=== PATIENT | male | born 1940 | race Caucasian/White ===

== ENCOUNTER → 2019-02-11 | Outpatient (CLI) | payer MEDICARE, MEDICAID, SELFPAY | DX: R53.1 Weakness (principal) | CPT/HCPCS: 70450 ==

== ENCOUNTER 2019-02-13 16:04 | Emergency (ER) | payer MEDICARE, MEDICAID, SELFPAY ==
[2019-02-13 16:06] VITALS: BMI 26.4
--- NOTE | 2019-02-13 16:09 | W.ED.FALL ---
HPI - Fall General: Chief Complaint: Fall Stated Complaint: FALL Time Seen by Provider: 02/13/19 16:09 PFSH ED PFSH: Statuses (acute, chronic, etc) shown below reflect problem list status as previously entered and may not be historically accurate Social History Smoking and tobacco status: former smoker Discharge Plan Discharge Condition: Stable Coding Level of Care Code ED Warm In Worker for Irma Dlegado
[2019-02-13 16:10] VITALS: BP 118/62; PULSE 76; RESP 20; TEMP 36.8; O2SAT 98
--- NOTE | 2019-02-13 16:25 | ED_ITS ---
Entered by Yulia Chavis, acting as scribe for Feb 13, 2019 16:04 HPI - Fall General: Chief Complaint: Fall Stated Complaint: FALL Time Seen by Provider: 02/13/19 16:09 Source: patient Mode of arrival: EMS Limitations: no limitations History of Present Illness: HPI Narrative: 78 yo Male presents to ED with complaint of right hip pain post fall. Pt states that he fell earlier today. Pt states that he has pain in his right hip and his right forearm. Patient has no other complaints except for the fall and right sided hip pain. Patient is alert and give normal history. MD complaint: fall Onset (ago): hour(s) Fall from: standing Fall witnessed: yes, by family Place fall occurred: home Loss of consciousness: None Prolonged down time: no Symptoms prior to fall: none Context: history of frequent falls Location of injury: pelvis Location of injury - extremities: Right: thigh (hip) Severity: mild Associated symptoms-after fall: Reports no associated symptoms Review of Systems General: Reports: 10 or more systems reviewed and unremarkable except in HPI and below Musc: Reports: extremity pain (right hip pain) Neuro: Reports: frequent falls PFSH ED PFSH: Statuses (acute, chronic, etc) shown below reflect problem list status as previously entered and may not be historically accurate Social History Smoking and tobacco status: former smoker Physical Exam Const: COMMON NORMALS: no apparent distress, average body habitus, oriented x3, no limitations, healthy appearing, alert and well nourished Eye: COMMON NORMALS: conjunctivae normal CONJUNCTIVA: Yes conjunctivae normal Neck/C-Spine: COMMON NORMALS: supple and no JVD Resp: COMMON NORMALS: normal respiratory effort, no retractions, no use of accessory muscles and clear to auscultation bilaterally AUSCULTATION: clear to auscultation bilaterally Cardio: COMMON NORMALS: no JVD, regular rate, regular rhythm, S1 normal heart sound, S2 normal heart sound, no gallops, no clicks, no murmurs and no rub RATE: regular rate RHYTHM: regular rhythm HEART SOUNDS: S1 normal and S2 normal GI: COMMON NORMALS: normal to inspection, nondistended, normoactive bowel sounds, soft to palpation and non-tender PALPATION: Yes soft Extremity: COMMON NORMALS: normal to inspection, normal capillary refill, no joint enlargement, no clubbing, cyanosis or edema and no calf tenderness (Mild PTP over left greater trochanter); negative for full ROM Neuro: COMMON NORMALS: oriented x3 SENSORIUM/ORIENTATION: Yes alert Skin: COMMON NORMALS: no wounds (skin tear to right arm) Course Vital Signs: Vital signs: Vital Signs Temperature 98.2 F 02/13/19 16:10 Pulse Rate 76 02/13/19 16:10 Respiratory Rate 20 H 02/13/19 16:10 Blood Pressure 118/62 02/13/19 16:10 Pulse Oximetry 98 02/13/19 16:10 MDM - Fall MDM Narrative: Medical decision making narrative: Discussed differential diagnosis which includes contusion versus fracture. Recommend plain films of the pelvis and right hip. Patient feels much better he is resting comfortably. I reviewed carefully the films preliminarily I do not see any fracture. I did talk to him about the possibility of an occult fracture that is not seen on preliminary reading or even final reading. He is able to bear weight on this. I think fracture is unlikely. I recommended conservative care if he is not improving he should return or follow-up with his primary care physician. Discharge Plan Discharge Patient Disposition: Home, Self-Care Clinical Impression: Accidental fall, Contusion of right hip Condition: Stable Referrals: Ashley Medrano [Primary Care Provider] - [facility] [Other] Discharge Diet: Advance as tolerated Discharge Activity: Limit activity as instructed Activity Restrictions/Additional Instructions: 1. Take ibuprofen if no contra indications and Tylenol arthritis for discomfort use ice or heat. 2. Follow-up with primary care in 3 to 5 days for recheck and official x-ray r eport for further ongoing management. 3. Return for new or worsening symptoms or inability to bear weight. Coding Level of Care Code ED Medicare Compliance Auditor for Chg Fwd Exam Problem Focused The documentation recorded by the Palmira arriaza Carmen, accurately reflects the service I personally performed and the decisions made by , Damion Bailey DO Feb 13, 2019 16:04
--- NOTE | 2019-02-13 16:33 | XR_ITS ---
WS: [id number] RIGHT HIP HISTORY: fall/pain COMPARISON: 01/28/2019 Right hip: No acute fracture or dislocation. Mild narrowing of the hip joint. Enthesopathy at the gre ater trochanter. Osteopenia. XR/XR hip RT 2-3V wo/w pel* [id number] IMPRESSION: 1. No hip fracture. 2. Osteopenia.
--- NOTE | 2019-02-13 17:03 | PC.NURSE ---
portable xray at bedside.
[2019-02-13 19:36] VITALS: BP 109/60; PULSE 80; RESP 14; O2SAT 99
[2019-02-13 19:56] VITALS: BP 135/77; PULSE 66; RESP 14; TEMP 36.7; O2SAT 99
[2019-02-13 21:12] VITALS: BP 121/72; PULSE 74; RESP 14; O2SAT 97
== END 2019-02-13 22:53 | disposition home or self-care (01) ==
PROVIDERS: Emergency Provider Family Medicine; PCP Nurse Practitioner Family
DX: S70.01XA Contusion of right hip, initial encounter (principal); W19.XXXA Unspecified fall, initial encounter; Y92.009 Unspecified place in unspecified non-institutional (private) residence as the place of occurrence of the external cause; Z87.891 Personal history of nicotine dependence
CPT/HCPCS: 73502; 99281

== ENCOUNTER 2019-02-23 19:14 | Emergency (ER) | payer MEDICARE, MEDICAID, SELFPAY ==
[2019-02-23] VITALS (35 sets, daily range): BP systolic 135–138; BP diastolic 70–75; PULSE 60–89; RESP 18; TEMP 36.7–36.8; O2SAT 80–98; BMI 34.4
--- NOTE | 2019-02-23 19:25 | ED_ITS ---
Entered by Wendie Cuenca, acting as scribe for Arnoldo Espinoza DO Feb 23, 2019 19:14 HPI - General Adult General: Chief complaint: General Medical Stated complaint: WEAKNESS Time Seen by Provider: 02/23/19 19:24 Source: patient Mode of arrival: EMS Limitations: no limitations History of Present Illness: HPI narrative: 78 yo m came to the er by ems for general sickness. Onset was yesterday. Pt states that he has had a fever, productive cough and fuentes had trouble breathing. Pt states that he started to feel sick and that is why he wanted to come in. MD complaint: cough, fever Onset (ago): day(s) (yesterday) Radiation: non-radiation Severity: mild Pain Consistency: intermittent Relieving factors: none Exacerbating factors: none Associated symptoms: Reports cough (productive) and dyspnea; Deny chest pain, confusion, headache(s), nausea, rash, palpitations or vomiting Treatments prior to arrival: none Review of Systems Const: Denies: fever or chills Eyes: Denies: change in vision or blurry vision ENMT: Denies: painful swallowing, swelling of lips/tongue, bleeding gums, dental pain, Change in hearing, nose bleeds, post nasal drip or facial/sinus pain Card: Denies: chest pain or palpitations Resp: Reports: shortness of breath GI: Denies: nausea or vomiting : Denies: difficulty urinating, painful urination, urinary frequency, urinary urgency or blood in urine Musc: Denies: neck pain, back pain, redness or joint warmth Skin/Breast: Denies: rash Neuro: Denies: headache or confusion Psych: Denies: anxiety, visual hallucinations or auditory hallucinations PFSH ED PFSH: Statuses (acute, chronic, etc) shown below reflect problem list status as previously entered and may not be historically accurate Family History Father CAD (coronary artery disease) Mother CAD (coronary artery disease) Hypertension Sister CAD (coronary artery disease) Diabetes Family/Other Stroke Social History Smoking and tobacco status: former smoker Alcohol intake: former Physical Exam Const: COMMON NORMALS: alert GENERAL APPEARANCE: well developed ORIENTATION/CONSCIOUSNESS: Yes awake, Yes oriented to person and Yes oriented to place HENMT: COMMON NORMALS: normocephalic, external ears normal and external nose normal; oral mucous membranes not moist HEAD & SCALP: normocephalic; no scalp tenderness NOSE: external nose normal and no nasal discharge EXTERNAL EAR: Yes external ears normal THROAT: posterior oropharynx normal Eye: COMMON NORMALS: PERRL, EOMs intact bilaterally and conjunctivae normal EYELID: eyelids normal CONJUNCTIVA: Yes conjunctivae normal PUPIL: Yes PERRL Neck/C-Spine: COMMON NORMALS: full ROM GENERAL: No anterior neck swelling and No tracheal deviation Chest: COMMONS NORMALS: inspection of chest normal CHEST: Yes symmetrical chest wall rise and No tenderness Resp: COMMON NORMALS: clear to auscultation bilaterally EFFORT & INSPECTION: No tachypneic, No respiratory distress, No retractions, No uses accessory muscles and No tracheal deviation AUSCULTATION: clear to auscultation bilaterally, no rhonchi, no wheezes and lung sounds not diminished Cardio: COMMON NORMALS: regular rate and regular rhythm RATE: regular rate RHYTHM: regular rhythm HEART SOUNDS: no murmurs PERIPHERAL PULSES: radial pulses present GI: INSPECTION: No abdominal distension AUSCULTATION: No hyperactive bowel sounds and No hypoactive bowel sounds PALPATION: No tender, No guarding and No rigid PERCUSSION: no dullness to percussion and no tympanic to percussion : COMMON NORMALS: Yes no CVA tenderness BLADDER/KIDNEY EXAM: Yes no CVA tenderness Back/Pelvis: COMMON NORMALS: no CVA tenderness Neuro: SENSORIUM/ORIENTATION: Yes alert, Yes oriented to person and Yes oriented to place Psych: COMMON NORMALS: mental status grossly normal and speech normal SPEECH: Yes normal speech Skin: COMMON NORMALS: no rashes or lesions noted GENERAL SKIN EXAM: no rashes or lesions noted Course ED course: Chest x-ray revealed platelike atelectasis in the right lower lobe, that could be an infiltrate. He will be treated for pneumonia. He is afebrile. He is not hypoxic. He can be treated at home. He has nebulizer treatments at home as well. Vital Signs: Vital signs: Vital Signs Temperature 98.1 F 02/23/19 21:00 Pulse Rate 80 02/23/19 22:15 Respiratory Rate 18 02/23/19 22:15 Blood Pressure 135/75 02/23/19 22:15 Pulse Oximetry 98 02/23/19 22:15 Discharge Plan Discharge Patient Disposition: Home, Self-Care Condition: Stable Prescriptions: No Action esomeprazole magnesium [Nexium] 40 mg capsule,delayed release(DR/EC) 40 mg PO DAILY RF: 0 nitroglycerin [Nitrostat] 0.4 mg tablet, sublingual 0.4 mg SUBLINGUAL Q5M PRNRF: 0 furosemide 40 mg tablet 40 mg PO BID RF: 0 tamsulosin [Flomax] 0.4 mg capsule 0.4 mg PO DAILY RF: 0 albuterol sulfate 2.5 mg/0.5 mL solution for nebulization 10 mg INHALATION Q4H PRNRF: 0 risperidone 0.5 mg tablet 0.5 mg PO BID RF: 0 donepezil [Aricept] 10 mg tablet 10 mg PO .AM RF: 0 hydrocodone-acetaminophen 5-325 mg tablet 1 tab PO Q8H PRNRF: 0 potassium chloride 20 mEq tablet extended release 20 meq PO DAILY RF: 0 memantine [Namenda] 10 mg tablet 10 mg PO BID RF: 0 ondansetron HCl 4 mg tablet 4 mg PO Q6H PRNRF: 0 melatonin 5 mg capsule PO .HS RF: 0 vitamin B complex [B Complex-Vitamin B12] Tablet 1 tab PO QAM RF: 0 ascorbate calcium (vitamin C) 500 mg tablet 500 mg PO DAILY RF: 0 Discharge Orders: Discharge Order (Routine); Ordered 02/23/19 Ordered By: Arnoldo Espinoza Referrals: [facility] [Other] Fredis Elder MD [Primary Care Provider] - Discharge Diet: Advance as tolerated Discharge Activity: Resume usual activity Patient Instructions: Bacterial Pneumonia (ED) Activity Restrictions/Additional Instructions: Return for worsening chest pain or shortness of breath despite treatment, fever greater than 100 despite 2-3 doses of antibiotics, other concerning symptoms. Discharge Date/Time: 02/23/19 22:17 Coding Level of Care Code ED Customer Service Engineer for Chg Fwd The documentation recorded by the Bang arriaza Stephanie Lyn, accurately reflects the service I personally performed and the decisions made by Alexis san Jeremy John, DO Feb 23, 2019 19:14
--- NOTE | 2019-02-23 19:33 | PC.NURSE ---
Pt daughter reviewed pt's history and indicated that patient is having chills, leg pain, and lethargy which has been progressing over the past few days.
--- NOTE | 2019-02-23 19:46 | XR_ITS ---
WS: [id number] CHEST 2 VIEWS HISTORY: sob COMPARISON: 01/28/2019 Lungs: Hyperinflated lungs with changes of emphysema. No pneumonia. Small bilateral pleural effusions . Mild thickening along the fissures. Cardiac size: Normal. Mediastinum/Aorta: Mild atherosclerosis aorta. Bones: Normal. Shunt catheter projects over the LEFT thorax. XR/XR chest 2V* [id number] IMPRESSION: 1. Chronic emphysema and atherosclerosis aorta. 2. No pneumonia. 3. Small bilateral pleural effusions.
--- NOTE | 2019-02-23 20:19 | PC.NURSE ---
Pt out of room at present.
[2019-02-23] MEDS: doxycycline 100 mg Tablet PO (21:23)
[2019-02-23] MEDS: dexamethasone 4 mg Tablet 8 MG PO (21:24)
== END 2019-02-23 22:17 | disposition home or self-care (01) ==
PROVIDERS: Emergency Provider Emergency Medicine; PCP Internal Medicine Cardiovascular Disease
DX: R53.1 Weakness (principal); Z87.891 Personal history of nicotine dependence
CPT/HCPCS: 71046; 99283; J8540

== ENCOUNTER 2019-02-23 23:55 | Emergency (ER) | payer MEDICARE, MEDICAID, SELFPAY ==
[2019-02-23 23:57] VITALS: BP 147/80; PULSE 81; RESP 18; TEMP 36.4; O2SAT 97; BMI 28.7
--- NOTE | 2019-02-24 00:17 | ED_ITS ---
Entered by Wendie Cuenca, acting as scribe for Arnoldo Espinoza DO Feb 23, 2019 23:55 HPI - Fall General: Chief Complaint: Fall Stated Complaint: FALL Time Seen by Provider: 02/24/19 00:17 Source: patient Mode of arrival: EMS Limitations: no limitations History of Present Illness: HPI Narrative: 78 yo m came to the er by ems for fall. Happened today. Pt states that he fell and landed on his left hand causing an open wound on his knuckles and has a skin tear on the top of his wrist. MD complaint: fall Onset (ago): day(s) (today) Fall from: standing Fall witnessed: no Place fall occurred: home Loss of consciousness: None Prolonged down time: no Symptoms prior to fall: none Context: tripped/slipped Location of injury - extremities: Left: hand (wrist) Severity: mild Quality: other (pain) Associated symptoms-after fall: Denies abdominal pain, chest pain, confusion, headache(s), hematuria, neck pain or vertigo Review of Systems Const: Denies: fever or chills Eyes: Denies: change in vision or blurry vision ENMT: Denies: painful swallowing, swelling of lips/tongue, bleeding gums, dental pain, Change in hearing, nose bleeds, post nasal drip or facial/sinus pain Card: Denies: chest pain Resp: Denies: shortness of breath, productive cough, non-productive cough or wheezing GI: Denies: abdominal pain : Denies: blood in urine Musc: Denies: neck pain Skin/Breast: Denies: rash, itching or redness Neuro: Denies: headache, vertigo or confusion Psych: Denies: anxiety, visual hallucinations or auditory hallucinations PFSH ED PFSH: Statuses (acute, chronic, etc) shown below reflect problem list status as previously entered and may not be historically accurate Social History Smoking and tobacco status: former smoker Alcohol intake: former Physical Exam Const: COMMON NORMALS: alert GENERAL APPEARANCE: well developed ORIENTATION/CONSCIOUSNESS: Yes awake, Yes oriented to person and Yes oriented to place HENMT: COMMON NORMALS: normocephalic, external ears normal, external nose normal and moist oral mucous membranes HEAD & SCALP: normocephalic; no scalp tenderness FACE & SINUS: normal facial exam NOSE: external nose normal and no nasal discharge EXTERNAL EAR: Yes external ears normal MOUTH: tongue normal Eye: COMMON NORMALS: PERRL, EOMs intact bilaterally and conjunctivae normal EYELID: eyelids normal CONJUNCTIVA: Yes conjunctivae normal PUPIL: Yes PERRL Neck/C-Spine: COMMON NORMALS: full ROM GENERAL: No tracheal deviation CERVICAL SPINE: No cervical spine tenderness and No step off deformity Chest: COMMONS NORMALS: inspection of chest normal CHEST: Yes symmetrical chest wall rise and No tenderness Resp: COMMON NORMALS: clear to auscultation bilaterally EFFORT & INSPECTION: No tachypneic, No respiratory distress, No retractions, No uses accessory muscles and No tracheal deviation AUSCULTATION: clear to auscultation bilaterally, no rhonchi, no wheezes and lung sounds not diminished Cardio: COMMON NORMALS: regular rate and regular rhythm RATE: regular rate RHYTHM: regular rhythm HEART SOUNDS: no murmurs PERIPHERAL PULSES: radial pulses present GI: INSPECTION: No abdominal distension AUSCULTATION: No hyperactive bowel sounds and No hypoactive bowel sounds PALPATION: No tender, No guarding and No rigid PERCUSSION: no dullness to percussion and no tympanic to percussion : COMMON NORMALS: Yes no CVA tenderness BLADDER/KIDNEY EXAM: Yes no CVA tenderness Back/Pelvis: COMMON NORMALS: no CVA tenderness PELVIS: Yes no pain with anterior-posterior compression and Yes no pain with lateral compression Extremity: NARRATIVE EXTREMITY EXAM: Examination of the left hand reveals abrasions. There is a mild amount of swelling. Intact tendon function. No deformity. Neuro: SENSORIUM/ORIENTATION: Yes alert, Yes oriented to person and Yes oriented to place Psych: COMMON NORMALS: mental status grossly normal and speech normal SPEECH: Yes normal speech Skin: COMMON NORMALS: no rashes or lesions noted GENERAL SKIN EXAM: no rashes or lesions noted Course ED course: This patient had been seen earlier, and discharged. He had ambulated to the waiting room. When he found out it would be morning before transport would become available back to his home, he requested an alternate method home. A cab was called. He exited the cab at his home, tripped, and fell requiring repeat matriculation to the emergency department. There is no fracture on x-ray. He has abrasions and some mild swelling to the hand, which were cleaned and repaired. His daughter is here now. He will be discharged home. Vital Signs: Vital signs: Vital Signs Temperature 98.6 F 02/24/19 02:32 Pulse Rate 78 02/24/19 02:32 Respiratory Rate 18 02/24/19 02:32 Blood Pressure 133/79 02/24/19 02:32 Pulse Oximetry 93 02/24/19 02:32 Discharge Plan Discharge Patient Disposition: Home, Self-Care Clinical Impression: Contusion of hand, left Qualifiers: Encounter type: initial encounter Qualified Code(s): S60.222A - Contusion of left hand, initial encounter Abrasion of hand, left Qualifiers: Encounter type: initial encounter Qualified Code(s): S60.512A - Abrasion of left hand, initial encounter Condition: Stable Prescriptions: No Action esomeprazole magnesium [Nexium] 40 mg capsule,delayed release(DR/EC) 40 mg PO DAILY RF: 0 nitroglycerin [Nitrostat] 0.4 mg tablet, sublingual 0.4 mg SUBLINGUAL Q5M PRNRF: 0 furosemide 40 mg tablet 40 mg PO BID RF: 0 tamsulosin [Flomax] 0.4 mg capsule 0.4 mg PO DAILY RF: 0 albuterol sulfate 2.5 mg/0.5 mL solution for nebulization 10 mg INHALATION Q4H PRNRF: 0 risperidone 0.5 mg tablet 0.5 mg PO BID RF: 0 donepezil [Aricept] 10 mg tablet 10 mg PO .AM RF: 0 hydrocodone-acetaminophen 5-325 mg tablet 1 tab PO Q8H PRNRF: 0 potassium chloride 20 mEq tablet extended release 20 meq PO DAILY RF: 0 memantine [Namenda] 10 mg tablet 10 mg PO BID RF: 0 ondansetron HCl 4 mg tablet 4 mg PO Q6H PRNRF: 0 melatonin 5 mg capsule PO .HS RF: 0 vitamin B complex [B Complex-Vitamin B12] Tablet 1 tab PO QAM RF: 0 ascorbate calcium (vitamin C) 500 mg tablet 500 mg PO DAILY RF: 0 Discharge Orders: Discharge Order (Routine); Ordered 02/24/19 Ordered By: Arnoldo Espinoza Referrals: [facility] [Other] Fredis Elder MD [Primary Care Provider] - Discharge Diet: Usual diet Discharge Activity: Resume usual activity Patient Instructions: Contusion in Adults (ED), Abrasion (ED) Activity Restrictions/Additional Instructions: Keep clean and dry for 24 hours, then may wash with soap and water. Do not scrub. Return for worsening bleeding, swelling, pain, other concerning symptoms. Discharge Date/Time: 02/24/19 02:33 Coding Level of Care Code ED Binding Nicker for thomas Delgado The documentation recorded by the [facility] ar[facility]aza Stephanie Lyn, accurately reflects the service I personally performed and the decisions made by Alexis san Jeremy John, DO Feb 23, 2019 23:55
--- NOTE | 2019-02-24 00:23 | XR_ITS ---
WS: [id number] HAND LEFT TECHNIQUE: 3 views of the left hand CLINICAL INFORMATION: fall COMPARISON: None. FINDINGS: Osteopenia. Mild narrowing of the IP joints. Mild narrowing of the radiocarpal joint. Normal metacarp als. Distal radius is normal. Slight irregularity along the distal ulna suspicious for nondisplaced fractu re. Recommend interval follow-up. XR/XR hand LT min 3V* [id number] IMPRESSION: Slight irregularity distal ulna along the proximal ulna styloid suspicious for nondisplaced fracture recommend interval follow-up.
[2019-02-24 00:31] VITALS: BP 147/87; PULSE 79; O2SAT 95
[2019-02-24 00:36] VITALS: RESP 18
[2019-02-24] MEDS: oxyCODONE-APAP 5-325 mg Tablet 1 TAB PO (00:36)
--- NOTE | 2019-02-24 01:00 | PC.NURSE ---
3 skin tears to left hand/wrist. Pulse palpitable, pt able to move all digits. States tenderness during physical exam. Hand cleansed with warm water and betadine. Winston merrill @ bedside.
--- NOTE | 2019-02-24 01:59 | PC.NURSE ---
Left hand skin tears repaired by physician using glue x 2 tubes.
[2019-02-24 02:32] VITALS: BP 133/79; PULSE 78; RESP 18; TEMP 37; O2SAT 93
--- NOTE | 2019-02-27 17:56 | PC.NURSE ---
PT CALLED BACK DUE TO FINAL RADIOLOGY REPORT. POSTERIOR SPLINT APPLIED AND CASE MGT NOTIFIED OF THE NEED FOR A ORTHO APPT.
--- NOTE | 2019-02-28 09:34 | DCPLANNER ---
operations support manager had message to schedule a follow up appointment for patient with ortho. operations support manager called the ortho clinic, spoke with Molly, gave clinic patients information. operations support manager was told that patients information would be printed and reviewed. Clinic will call case sealer and patient with appointment information.
--- NOTE | 2019-03-04 12:14 | DCPLANNER ---
Patient has a follow up appointment scheduled for Thursday, March 07, 2019 at 12:[address] Alvarado. Clinic will contact patient with appointment information.
--- NOTE | 2019-03-12 15:42 | DCPLANNER ---
Patient did attend appointment scheduled for 03.07.19 with ortho.
== END 2019-02-24 02:33 | disposition home or self-care (01) ==
PROVIDERS: Emergency Provider Emergency Medicine; PCP Internal Medicine Cardiovascular Disease
DX: S60.222A Contusion of left hand, initial encounter (principal); W19.XXXA Unspecified fall, initial encounter; Y92.009 Unspecified place in unspecified non-institutional (private) residence as the place of occurrence of the external cause; Z87.891 Personal history of nicotine dependence
CPT/HCPCS: 73130; 99281

== ENCOUNTER 2019-03-02 12:45 | Emergency (ER) | payer MEDICARE, MEDICAID, SELFPAY ==
[2019-03-02] VITALS (11 sets, daily range): BP systolic 111–124; BP diastolic 68–77; PULSE 55–66; RESP 12–23; TEMP 36.7; O2SAT 96–100; BMI 26.4
--- NOTE | 2019-03-02 12:53 | ED_ITS ---
Entered by Robyn Nixon, acting as scribe for HPI - Chest Pain General: Chief Complaint: Chest Pain Stated Complaint: CHEST PAIN Time Seen by Provider: 03/02/19 12:50 Source: patient and EMS Mode of arrival: EMS Limitations: no limitations History of Present Illness: HPI narrative: 78 yo male presents with no complaints. pt states his spouse called EMS and they brought him here. pt denies any pain at this time. pt states he does have mild shortness of breath that is chronic. pt states he does not know why they brought him here other that spouse. pt denies any other symptoms at this time. EMS reports called for dyspnea and chest pain MD complaint: other (mild shortness of breath) Pertinent past history: prior IA Onset (ago): day(s) (today) Timing of current episode: increasing Onset: during rest Pain radiation: none Severity: mild Relieving factors: nothing Exacerbating factors: nothing Associated symptoms: Reports no associated symptoms and dyspnea; Deny abdominal pain, fever(s), nausea or vomiting Treatment prior to arrival: none Review of Systems Const: Denies: fever or chills Eyes: Denies: blurry vision or eye discharge ENMT: Denies: throat pain, nasal congestion or facial/sinus pain Card: Denies: chest pain Resp: Reports: shortness of breath; Denies: productive cough or non-productive cough GI: Denies: abdominal pain, nausea, vomiting, diarrhea or constipation : Denies: difficulty urinating or painful urination Musc: Denies: joint warmth Skin/Breast: Denies: rash, redness or sores Neuro: Reports: weakness in extremities; Denies: headache, numbness in extremities or dizziness Psych: Denies: anxiety or depression Endo: Denies: excessive urination or excessive thirst Grant/Lymph: Denies: easy bruising, petechiae or enlarged lymph nodes All/Imm: Denies: hives or acute wheezing PFSH ED PFSH: Statuses (acute, chronic, etc) shown below reflect problem list status as previously entered and may not be historically accurate Family History Father CAD (coronary artery disease) Mother CAD (coronary artery disease) Hypertension Sister CAD (coronary artery disease) Diabetes Family/Other Stroke Social History Smoking and tobacco status: never smoked Alcohol intake: former Physical Exam Const: COMMON NORMALS: no apparent distress, no limitations, healthy appearing, alert and well nourished; negative for oriented x3 GENERAL APPEARANCE: cooperative, comfortable, well kempt, well developed and frail appearing NUTRITIONAL APPEARANCE: obese ORIENTATION/CONSCIOUSNESS: Yes awake, Yes oriented to person and Yes oriented to place; not oriented to time HENMT: COMMON NORMALS: normocephalic, head/scalp atraumatic, hearing grossly normal bilaterally, external ears normal, external nose normal and moist oral mucous membranes HEAD & SCALP: normocephalic and atraumatic FACE & SINUS: normal facial exam and face symmetric NOSE: external nose normal EXTERNAL EAR: Yes external ears normal and Yes external ear abnormal Eye: COMMON NORMALS: EOMs intact bilaterally and conjunctivae normal GENERAL EYE: normal appearance of both eyes ALIGNMENT: Yes alignment normal EYELID: eyelids normal CONJUNCTIVA: Yes conjunctivae normal SCLERA: sclerae normal Neck/C-Spine: COMMON NORMALS: full ROM and no lymphadenopathy GENERAL: Yes normal visual inspection CERVICAL SPINE: Yes cervical ROM normal Lymph: LYMPHATIC: no lymphadenopathy noted Chest: COMMONS NORMALS: inspection of chest normal CHEST: Yes symmetrical chest wall rise Cardio: COMMON NORMALS: regular rate and regular rhythm RATE: regular rate RHYTHM: regular rhythm PERIPHERAL PULSES: radial pulses present GI: COMMON NORMALS: normal to inspection, nondistended, normoactive bowel sounds, soft to palpation and non-tender PALPATION: Yes soft RECTAL EXAM: Yes deferred : COMMON NORMALS: Yes no CVA tenderness BLADDER/KIDNEY EXAM: Yes no CVA tenderness Back/Pelvis: COMMON NORMALS: no CVA tenderness THORACIC SPINE/UPPER BACK: No pain with ROM LUMBAR SPINE/LOWER BACK: No pain with ROM Extremity: COMMON NORMALS: normal to inspection, full ROM, normal capillary refill and no pedal edema GENERAL: Yes normal exam except as noted and Yes edema Neuro: JONO COMA SCALE: GCS not evaluated COMMON NORMALS: moves all extremities, no focal motor deficits and no sensory deficits noted; negative for oriented x3 SENSORIUM/ORIENTATION: Yes alert, Yes oriented to person, Yes oriented to place and No oriented to time SPEECH: speech normal Psych: COMMON NORMALS: cooperative, affect normal, speech normal and activity/motor behavior normal APPEARANCE: Yes grossly normal and Yes well kempt ATTITUDE: Yes calm ACTIVITY/MOTOR BEHAVIOR: Yes appropriate eye contact SPEECH: Yes normal speech THOUGHT PROCESS: confused THOUGHT CONTENT: Yes normal thought content ATTENTION/CONCENTRATION: Yes attention grossly intact MEMORY/COGNITION: Yes memory grossly intact and Yes cognition grossly intact INSIGHT: insight good JUDGEMENT: judgment good Skin: COMMON NORMALS: no rashes or lesions noted, skin turgor normal and no petechiae GENERAL SKIN EXAM: no rashes or lesions noted and turgor normal RASHES: no rashes TRAUMA: no lacerations or abrasions HAIR: normal NAILS: normal Course ED course: Patient is in no acute distress. He really cannot tell me why he is in the emergency room. He is pleasantly confused. He denies chest pain, shortness of breath, fevers, vomiting, abdominal pain.EMS reports that the call was for chest pain. We will start our initial work-up from that perspective Patient's initial high-sensitivity troponin is elevated at 39. old records show high-sensitivity trop on 01/28/19 at 35, 2 hr at 38 and 6 hr at 52. will wait to see what our 2 hr is today. pt is insisting on going home. refusing to wait for repeat trop. EKG unremarkable. initial trop consistentn with last in january. will allow to sign out AMA. Vital Signs: Vital signs: Vital Signs Temperature 98.0 F 03/02/19 12:46 Pulse Rate 55 L 03/02/19 14:10 Respiratory Rate 17 03/02/19 14:10 Blood Pressure 124/68 03/02/19 14:10 Pulse Oximetry 99 03/02/19 14:10 MDM - Chest Pain Lab Data: Labs: Lab Results 03/02/19 03/02/19 03/02/19 Range/Units 13:19 13:19 13:19 WBC 5.7 (4.0-10.0) 10^3/ uL RBC 4.43 (4.1-5.3) 10^6/u L Hgb 11.8 (11.7-16.6) g/dL Hct 38.3 L (42.0-52.0) % MCV 86.5 (80-94) fL MCH 26.6 L (28.0-34.0) pg MCHC 30.8 (30.0-36.0) g/dL RDW 15.7 H (12.1-15.1) % Plt Count 215 (130-400) 10^3/c mm MPV 10.1 (7.4-10.4) fL Neut % (Auto) 60.1 % Lymph % (Auto) 19.0 % [place] % (Auto) 11.3 % Eos % (Auto) 9.0 % Baso % (Auto) 0.4 % Neut # (Auto) 3.4 (1.8-7.7) 10^3/u L Lymph # (Auto) 1.1 (0.8-4.8) 10^3/u L [place] # (Auto) 0.6 (0.2-0.9) 10^3/u L Eos # (Auto) 0.5 (0.0-0.8) 10^3/u L Baso # (Auto) 0.0 (0.0-0.1) 10^3/u L Nucleated RBC % (a uto) 0 % Nucleated RBCs # 0.0 /100WBC Sodium 141 (136-145) mmol/L Potassium 3.5 (3.5-5.1) mmol/L Chloride 105 (98-107) mmol/L Carbon Dioxide 25 (22-29) mmol/L Anion Gap 14.5 (5-19) BUN 13 (8-23) mg/dL Creatinine 0.9 (0.7-1.2) mg/dL Glucose 98 (74-106) mg/dL Calcium 9.3 (8.8-10.2) mg/Dl Total Bilirubin 0.3 (0.15-1.2) mg/dL AST 9 (0-40) U/L ALT 8 (0-41) U/L Alkaline Phosphata se 90 (40-130) IU/L Troponin T Gen 5 n g/L 39 H (0-15) ng/mL Total Protein 6.7 (6.6-8.7) g/dL Albumin 3.9 (3.5-5.2) g/dL Globulin 2.8 (1.3-4.6) g/dL EKG Data^: EKG 1: Attestation: I personally reviewed and interpreted this EKG as follows: EKG interpretation date: 03/02/19 EKG interpretation time: 13:00 Prior EKG tracings: available for review Interpretation: Atrial fibrillation.Bradycardic at 59. Normal axis. Normal QRS. QTC prolonged at 456. Discharge Plan Discharge Patient Disposition: Left Against Medical Advice Clinical Impression: Chest pain Condition: Fair Prescriptions: No Action esomeprazole magnesium [Nexium] 40 mg capsule,delayed release(DR/EC) 40 mg PO DAILY RF: 0 nitroglycerin [Nitrostat] 0.4 mg tablet, sublingual 0.4 mg SUBLINGUAL Q5M PRNRF: 0 furosemide 40 mg tablet 40 mg PO BID RF: 0 tamsulosin [Flomax] 0.4 mg capsule 0.4 mg PO DAILY RF: 0 albuterol sulfate 2.5 mg/0.5 mL solution for nebulization 10 mg INHALATION Q4H PRNRF: 0 risperidone 0.5 mg tablet 0.5 mg PO BID RF: 0 donepezil [Aricept] 10 mg tablet 10 mg PO .AM RF: 0 hydrocodone-acetaminophen 5-325 mg tablet 1 tab PO Q8H PRNRF: 0 potassium chloride 20 mEq tablet extended release 20 meq PO DAILY RF: 0 memantine [Namenda] 10 mg tablet 10 mg PO BID RF: 0 ondansetron HCl 4 mg tablet 4 mg PO Q6H PRNRF: 0 melatonin 5 mg capsule PO .HS RF: 0 vitamin B complex [B Complex-Vitamin B12] Tablet 1 tab PO QAM RF: 0 ascorbate calcium (vitamin C) 500 mg tablet 500 mg PO DAILY RF: 0 Referrals: [facility] [Other] Fredis Elder MD [Primary Care Provider] - Discharge Diet: Usual diet Discharge Activity: Resume usual activity Patient Instructions: Chest Pain (ED) Activity Restrictions/Additional Instructions: Resume your home medications (if any). Follow-up with your primary care provider within the next 3-5 days. Follow-up with specialist if it was recommended. Return to the Emergency Department for worsening conditions or other concerning symptoms. Coding Level of Care Code ED Manager Pharmacy for Chg Fwd Exam Problem Focused The documentation recorded by the Hussain arriaza Bridget Annette, accurately reflects the service I personally performed and the decisions made by , Glenn Solitario MD Mar 02, 2019 12:45
--- NOTE | 2019-03-02 13:03 | PC.NURSE ---
GCS: 15. Patient does not know what year it is. Normal for pateint.
--- NOTE | 2019-03-02 13:12 | PC.NURSE ---
Lab at bedside
--- NOTE | 2019-03-02 13:13 | XRR_ITS ---
PROCEDURE INFORMATION: Exam: XR Chest, 1 View Exam date and time: 03/02/2019 1:14 PM Age: 78 years old Clinical indication: Chest pain; Type not specified; Prior surgery; Surgery date: 6+ months; Surgery type: Heart; Additional info: Cp TECHNIQUE: Imaging protocol: XR of the chest Views: 1 view. COMPARISON: CR XR chest 2V* [id number] 02/23/2019 8:14 PM FINDINGS: Tubes, catheters and devices: Partially imaged shunt catheter tubing overlies the left hemithorax. Lungs: There are streaky bibasilar opacities. Pleural space: There is no significant pleural effusion. There is no discernible pneumothorax. Heart/Mediastinum: The cardiac silhouette measures upper limits normal in size and is unchanged. Bones/joints: Unremarkable for technique. XR/XR chest 1V portable [id number] IMPRESSION: 1. Streaky bibasilar opacities, likely reflecting atelectasis. Early consolidation is possible and clinical correlation is suggested. Otherwise, no radiographic evidence of an acute cardiopulmonary process.
--- NOTE | 2019-03-02 13:22 | PC.NURSE ---
Patient unable to provide urine sample at this time. States he used the restroom before boarding the ambulance
--- NOTE | 2019-03-02 13:25 | PC.NURSE ---
X-ray at bedside.
[2019-03-02 13:26] LABS: Basophils % 0.4 %; Eosinophils # 0.5 10^3/uL (0.0-0.8); Hematocrit 38.3 % (42.0-52.0); Hemoglobin 11.8 g/dL (11.7-16.6); Lymphocytes # 1.1 10^3/uL (0.8-4.8); Mean Corpuscular HGB Conc 30.8 g/dL (30.0-36.0); Mean Corpuscular Hemoglobin 26.6 pg (28.0-34.0); Mean Corpuscular Volume 86.5 fL (80-94); Mean Platelet Volume 10.1 fL (7.4-10.4); Monocytes # 0.6 10^3/uL (0.2-0.9); Monocytes % 11.3 %; Neutrophils # 3.4 10^3/uL (1.8-7.7); Neutrophils % 60.1 %; Nucleated Red Blood Cells % 0 %; Platelet Count 215 10^3/cmm (130-400); Red Blood Count 4.43 10^6/uL (4.1-5.3); Red Cell Distribution Width 15.7 % (12.1-15.1); White Blood Count 5.7 10^3/uL (4.0-10.0)
[2019-03-02 13:44] LABS: Alanine Aminotransferase 8 U/L (0-41); Albumin Level 3.9 g/dL (3.5-5.2); Alkaline Phosphatase 90 IU/L (40-130); Anion Gap 14.5 (5-19); Aspartate Amino Transferase 9 U/L (0-40); Blood Urea Nitrogen 13 mg/dL (8-23); Calcium 9.3 mg/Dl (8.8-10.2); Carbon Dioxide 25 mmol/L (22-29); Chloride 105 mmol/L (98-107); Globulin 2.8 g/dL (1.3-4.6); Glucose 98 mg/dL (74-106); Potassium 3.5 mmol/L (3.5-5.1); Sodium 141 mmol/L (136-145); Total Bilirubin 0.3 mg/dL (0.15-1.2); Total Protein 6.7 g/dL (6.6-8.7)
[2019-03-02 13:46] LABS: Troponin T (5th) Once 39 ng/mL (0-15)
--- NOTE | 2019-03-02 15:23 | PC.NURSE ---
The patient would like to leave now. He does not want further testing and wishes to be home. His was contacted via phone. She does not want him transported by taxi. Medicaid funded transport contacted for return trip home. He is a fall risk. Patient will remain in room 14 until his ride gets here per department policy.
[2019-03-02 15:52] LABS: Troponin T (5th) Once 30 ng/mL (0-15)
== END 2019-03-02 17:12 | disposition left against medical advice (07) ==
PROVIDERS: Emergency Provider Emergency Medicine; PCP Internal Medicine Cardiovascular Disease
DX: R07.9 Chest pain, unspecified (principal); Z53.21 Procedure and treatment not carried out due to patient leaving prior to being seen by health care provider
CPT/HCPCS: 36415; 71045; 80053; 84484; 85025; 99281

== ENCOUNTER 2019-03-12 08:55 | Outpatient (CLI) | payer MEDICARE, MEDICAID, SELFPAY ==
--- NOTE | 2019-03-12 09:30 | USCV_ITS ---
Willie Ram Age: 78 Gender: M : 1940 Exam Date: 03/12/2019 09:28 Ordering Phys: Tara Peña Technologist: MIRA AGUILAR Exam Location: [facility] [place]_ Indication: RIGHT LOWER EXTREMITY DVT HISTORY: PREVIOUS DVT IN RIGHT LOWER EXTREMITY JANUARY 2019 PROCEDURES: Venous duplex imaging was performed in bilateral lower extremities. The following venous structures were evaluated: common femoral vein, profunda vein, proximal portion of the greater saphenous vein, femoral vein, and the popliteal vein. In addition, the posterior tibial and peroneal trunk were evaluated. Serial compression, augmentation maneuvers, and spectral Doppler flow evaluation were performed. FINDINGS: DVT noted in the femoral vein at prox. mid and distal. DVT also noted in the popliteal and peronal veins. All other vessels imaged appear free of thrombus at this time. CONCLUSIONS DVT in the proximal, mid and distal RIGHT femoral vein. DVT RIGHT popliteal and peroneal veins. DVT is similiar to 01/30 No evidence of left lower extremity DVT. Form Setter Helper notified Tara Peña and gave pre becker before patient was released. Walker Stone MD (Electronically Signed) Final Date: 12 March 2019 13:53 S
== END 2019-03-12 08:56 | disposition home or self-care (01) ==
LOC: US 08:57
PROVIDERS: Family Provider Family Medicine; Visit Provider Nurse Practitioner Family
DX: I82.401 Acute embolism and thrombosis of unspecified deep veins of right lower extremity (principal)
CPT/HCPCS: 93970

== ENCOUNTER 2019-03-16 02:55 | Emergency (ER) | payer MEDICARE, MEDICAID, SELFPAY ==
[2019-03-16] VITALS (7 sets, daily range): BP systolic 125–152; BP diastolic 75–95; PULSE 64–85; RESP 16–19; O2SAT 92–99; BMI 26.4
--- NOTE | 2019-03-16 03:01 | XRR_ITS ---
PROCEDURE INFORMATION: Exam: XR Chest, 1 View Exam date and time: 03/16/2019 3:23 AM Age: 78 years old Clinical indication: Chest pain; Type not specified; Prior surgery; Surgery date: 6+ months; Surgery type: Stent; Additional info: Cp TECHNIQUE: Imaging protocol: XR of the chest Views: 1 view. COMPARISON: CR (CHEST, ) 03/02/2019 1:21 PM FINDINGS: Lungs: Lungs are well aerated without a focal area of consolidation. Pleural space: Unremarkable. No pleural effusion. No pneumothorax. Heart/Mediastinum: Cardiac silhouette is enlarged. Bones/joints: Unremarkable. XR/XR chest 1V portable [id number] IMPRESSION: Lungs are well aerated without a focal area of consolidation.
--- NOTE | 2019-03-16 03:01 | ECG_ITS ---
Measurements Intervals [place] Rate: 66 P: IA: 0 QRS: -13 QRSD: 115 T: 99 QT: 411 QTc: 432 ATRIAL FIBRILLATION POSSIBLE RIGHT VENTRICULAR CONDUCTION DELAY [RSR (QR) IN V1/V2] NONSPECIFIC ST & T-WAVE ABNORMALITY Compared to ECG 01/29/2019 00:30:50 No significant changes Electronically Signed On 03-16-2019 15:43:32 STATEMENT CLERKS SUPERVISOR by Wilton Griffin M.D. [email or web address]
--- NOTE | 2019-03-16 03:02 | ED_ITS ---
Entered by Pita Roche, acting as scribe for Arnoldo Espinoza DO HPI - Chest Pain General: Chief Complaint: Chest Pain Stated Complaint: CHEST PAIN Time Seen by Provider: 03/16/19 03:01 Source: patient and EMS Mode of arrival: EMS History of Present Illness: HPI narrative: 78 y/o male presents to the ED with complaint of chest pain (epigastric). Upon arrival at [facility] [place], pts pain has mostly s ubsided. Pt reports eating Spaghetti-Os for dinner. MD complaint: chest pain Onset (ago): minute(s) Timing of current episode: episodic Prior episodes: Yes Onset: after eating Pain location: epigastric Severity: mild Relieving factors: nothing Associated symptoms: Reports nausea; Deny fever(s) or palpitations Review of Systems Const: Denies: fever or chills Eyes: Denies: change in vision or blurry vision Card: Reports: chest pain (epigastric ), edema and swelling of feet/ankles; Denies: palpitations or irregular heart rhythm Resp: Reports: productive cough; Denies: non-productive cough or wheezing GI: Reports: nausea and heartburn/indigestion; Denies: rectal pain, blood in stool or black tarry stool : Denies: difficulty urinating, painful urination, urinary frequency, urinary urgency or blood in urine Musc: Denies: joint warmth Skin/Breast: Denies: rash, itching or redness Neuro: Denies: headache, dizziness, vertigo, confusion or seizure-like activity Psych: Denies: anxiety, visual hallucinations or auditory hallucinations All/Imm: Denies: acute wheezing PFSH ED PFSH: Statuses (acute, chronic, etc) shown below reflect problem list status as previously entered and may not be historically accurate Social History Smoking and tobacco status: former smoker Quit status (tobacco): has quit using tobacco Alcohol intake: former Physical Exam Const: ORIENTATION/CONSCIOUSNESS: Yes oriented to person, Yes oriented to place and Yes oriented to time HENMT: COMMON NORMALS: normocephalic, external ears normal and external nose normal HEAD & SCALP: normocephalic; no scalp tenderness FACE & SINUS: normal facial exam NOSE: external nose normal EXTERNAL EAR: Yes external ears normal Eye: COMMON NORMALS: PERRL, EOMs intact bilaterally and conjunctivae normal EYELID: eyelids normal CONJUNCTIVA: Yes conjunctivae normal PUPIL: Yes PERRL Neck/C-Spine: COMMON NORMALS: full ROM GENERAL: No tracheal deviation CERVICAL SPINE: Yes normal cervical lordosis and No cervical spine tenderness Chest: COMMONS NORMALS: inspection of chest normal CHEST: Yes tenderness (epigastric) Resp: COMMON NORMALS: clear to auscultation bilaterally EFFORT & INSPECTION: No tachypneic, No respiratory distress, No retractions, No uses accessory muscles and No tracheal deviation AUSCULTATION: clear to auscultation bilaterally, no rhonchi, no wheezes and lung sounds not diminished Cardio: COMMON NORMALS: regular rate; negative for regular rhythm RATE: regular rate RHYTHM: abnormal rhythm HEART SOUNDS: no murmurs PERIPHERAL PULSES: radial pulses present GI: INSPECTION: No abdominal distension AUSCULTATION: No hyperactive bowel sounds and No hypoactive bowel sounds PALPATION: No guarding and No rigid PERCUSSION: no dullness to percussion and no tympanic to percussion Extremity: GENERAL: Yes edema (1 bilaterally ) Neuro: SENSORIUM/ORIENTATION: Yes oriented to person, Yes oriented to place and Yes oriented to time Psych: COMMON NORMALS: mental status grossly normal Skin: COMMON NORMALS: no rashes or lesions noted GENERAL SKIN EXAM: no rashes or lesions noted Course ED course: 78-year-old male here frequently for similar complaints. He reports chest discomfort that was mostly resolved on arrival. His pain improved somewhat with GI cocktail. His troponin did not change. His EKG did not show acute ST changes either acutely or at 2 hours his chest x-ray is negative Vital Signs: Vital signs: Vital Signs Pulse Rate 70 03/16/19 06:31 Respiratory Rate 16 03/16/19 06:31 Blood Pressure 125/78 03/16/19 06:31 Pulse Oximetry 94 03/16/19 06:31 MDM - Chest Pain Lab Data: Labs: Lab Results 03/16/19 03/16/19 03/16/19 Range/Units 03:08 03:08 03:08 WBC 4.1 (4.0-10.0) 10^3/ uL RBC 4.68 (4.1-5.3) 10^6/u L Hgb 12.4 (11.7-16.6) g/dL Hct 39.8 L (42.0-52.0) % MCV 85.0 (80-94) fL MCH 26.5 L (28.0-34.0) pg MCHC 31.2 (30.0-36.0) g/dL RDW 15.1 (12.1-15.1) % Plt Count 207 (130-400) 10^3/c mm MPV 10.4 (7.4-10.4) fL Neut % (Auto) 49.5 % Lymph % (Auto) 26.2 % [place] % (Auto) 11.9 % Eos % (Auto) 11.4 % Baso % (Auto) 0.5 % Neut # (Auto) 2.0 (1.8-7.7) 10^3/u L Lymph # (Auto) 1.1 (0.8-4.8) 10^3/u L [place] # (Auto) 0.5 (0.2-0.9) 10^3/u L Eos # (Auto) 0.5 (0.0-0.8) 10^3/u L Baso # (Auto) 0.0 (0.0-0.1) 10^3/u L Nucleated RBC % (a uto) 0 % Nucleated RBCs # 0.0 /100WBC PT 16.70 H (10.5-13.3) SECO NDS INR 1.31 H (0.8-1.2) APTT 31.6 (23.9-36.7) SECO NDS Sodium 140 (136-145) mmol/L Potassium 3.5 (3.5-5.1) mmol/L Chloride 103 (98-107) mmol/L Carbon Dioxide 24 (22-29) mmol/L Anion Gap 16.5 (5-19) BUN 12 (8-23) mg/dL Creatinine 1.0 (0.7-1.2) mg/dL Glucose 100 (74-106) mg/dL Calcium 10.2 (8.5-10.5) mg/dL Total Bilirubin 0.4 (0.15-1.2) mg/dL AST 13 (0-40) U/L ALT 9 (0-41) U/L Alkaline Phosphata se 86 (40-130) IU/L Troponin T Baselin e (0-15) ng/mL NT-Pro-B Natriuret Pep 760 H (0-450) pg/mL Total Protein 7.2 (6.6-8.7) g/dL Albumin 3.9 (3.5-5.2) g/dL Globulin 3.3 (1.3-4.6) g/dL 03/16/19 Range/Units 03:08 WBC (4.0-10.0) 10^3/ uL RBC (4.1-5.3) 10^6/u L Hgb (11.7-16.6) g/dL Hct (42.0-52.0) % MCV (80-94) fL MCH (28.0-34.0) pg MCHC (30.0-36.0) g/dL RDW (12.1-15.1) % Plt Count (130-400) 10^3/c mm MPV (7.4-10.4) fL Neut % (Auto) % Lymph % (Auto) % [place] % (Auto) % Eos % (Auto) % Baso % (Auto) % Neut # (Auto) (1.8-7.7) 10^3/u L Lymph # (Auto) (0.8-4.8) 10^3/u L [place] # (Auto) (0.2-0.9) 10^3/u L Eos # (Auto) (0.0-0.8) 10^3/u L Baso # (Auto) (0.0-0.1) 10^3/u L Nucleated RBC % (a uto) % Nucleated RBCs # /100WBC PT (10.5-13.3) SECO NDS INR (0.8-1.2) APTT (23.9-36.7) SECO NDS Sodium (136-145) mmol/L Potassium (3.5-5.1) mmol/L Chloride (98-107) mmol/L Carbon Dioxide (22-29) mmol/L Anion Gap (5-19) BUN (8-23) mg/dL Creatinine (0.7-1.2) mg/dL Glucose (74-106) mg/dL Calcium (8.5-10.5) mg/dL Total Bilirubin (0.15-1.2) mg/dL AST (0-40) U/L ALT (0-41) U/L Alkaline Phosphata se (40-130) IU/L Troponin T Baselin e 34 H (0-15) ng/mL NT-Pro-B Natriuret Pep (0-450) pg/mL Total Protein (6.6-8.7) g/dL Albumin (3.5-5.2) g/dL Globulin (1.3-4.6) g/dL Discharge Plan Discharge Patient Disposition: Home, Self-Care Clinical Impression: Atrial fibrillation Qualifiers: Atrial fibrillation type: unspecified Qualified Code(s): I48.91 - Unspecified atrial fibrillation Chest pain Qualifiers: Chest pain type: unspecified Qualified Code(s): R07.9 - Chest pain, unspecified Condition: Stable Prescriptions: No Action esomeprazole magnesium [Nexium] 40 mg capsule,delayed release(DR/EC) 40 mg PO DAILY RF: 0 nitroglycerin [Nitrostat] 0.4 mg tablet, sublingual 0.4 mg SUBLINGUAL Q5M PRNRF: 0 tamsulosin [Flomax] 0.4 mg capsule 0.4 mg PO DAILY RF: 0 albuterol sulfate 2.5 mg/0.5 mL solution for nebulization 10 mg INHALATION Q4H PRNRF: 0 risperidone 0.5 mg tablet 0.5 mg PO BID RF: 0 donepezil [Aricept] 10 mg tablet 10 mg PO .AM RF: 0 memantine [Namenda] 10 mg tablet 10 mg PO BID RF: 0 melatonin 5 mg capsule PO .HS RF: 0 vitamin B complex [B Complex-Vitamin B12] Tablet 1 tab PO QAM RF: 0 ascorbate calcium (vitamin C) 500 mg tablet 500 mg PO DAILY RF: 0 Eliquis 5 mg tablet 5 mg PO BID 90 Days Qty: 180 RF: 1 furosemide 40 mg tablet 40 mg PO BID Qty: 180 RF: 1 potassium chloride 20 mEq tablet extended release 20 meq PO DAILY 90 Days Qty: 90 RF: 1 Discharge Orders: Discharge Order (Routine); Ordered 03/16/19 Ordered By: Arnoldo Espinoza Referrals: Jimmy Stubbs MD [Family Provider] - 4-7 days Discharge Diet: Usual diet Discharge Activity: Increase activity as tolerated Patient Instructions: Chest Pain (ED) Discharge Date/Time: 03/16/19 07:12 Coding Level of Care Code ED Lead Recreation Assistant for Chg Fwrandy The documentation recorded by the Melchor arriaza Ashley, accurately reflects the service I personally performed and the decisions made by Alexis san Jeremy John, DO Mar 16, 2019 02:55
[2019-03-16 03:14] LABS: Basophils % 0.5 %; Eosinophils # 0.5 10^3/uL (0.0-0.8); Eosinophils % 11.4 %; Hematocrit 39.8 % (42.0-52.0); Hemoglobin 12.4 g/dL (11.7-16.6); Lymphocytes # 1.1 10^3/uL (0.8-4.8); Lymphocytes % 26.2 %; Mean Corpuscular HGB Conc 31.2 g/dL (30.0-36.0); Mean Corpuscular Hemoglobin 26.5 pg (28.0-34.0); Mean Platelet Volume 10.4 fL (7.4-10.4); Monocytes # 0.5 10^3/uL (0.2-0.9); Monocytes % 11.9 %; Neutrophils % 49.5 %; Nucleated Red Blood Cells % 0 %; Platelet Count 207 10^3/cmm (130-400); Red Blood Count 4.68 10^6/uL (4.1-5.3); Red Cell Distribution Width 15.1 % (12.1-15.1); White Blood Count 4.1 10^3/uL (4.0-10.0)
[2019-03-16] MEDS: ondansetron 2 mg/ML SDV 2 mL 4 MG IVP (03:15)
[2019-03-16] MEDS: morphine 4 mg/mL SDV 1 mL 2 MG IVP (03:16)
--- NOTE | 2019-03-16 03:20 | PC.NURSE ---
XRAY IN ROOM
[2019-03-16 03:25] LABS: INR 1.31 (0.8-1.2)
[2019-03-16 03:27] LABS: Partial Thromboplastin Time 31.6 SECONDS (23.9-36.7)
[2019-03-16 03:38] LABS: Troponin(5th) Baseline 34 ng/mL (0-15)
[2019-03-16 03:46] LABS: Alanine Aminotransferase 9 U/L (0-41); Albumin Level 3.9 g/dL (3.5-5.2); Alkaline Phosphatase 86 IU/L (40-130); Anion Gap 16.5 (5-19); Aspartate Amino Transferase 13 U/L (0-40); Blood Urea Nitrogen 12 mg/dL (8-23); Calcium 10.2 mg/dL (8.5-10.5); Carbon Dioxide 24 mmol/L (22-29); Chloride 103 mmol/L (98-107); Globulin 3.3 g/dL (1.3-4.6); Glucose 100 mg/dL (74-106); NT Pro B Type Natriuretic Pept 760 pg/mL (0-450); Potassium 3.5 mmol/L (3.5-5.1); Sodium 140 mmol/L (136-145); Total Bilirubin 0.4 mg/dL (0.15-1.2); Total Protein 7.2 g/dL (6.6-8.7)
--- NOTE | 2019-03-16 05:18 | PC.NURSE ---
PATIENT REQUESTED SOMETHING TO EAT AND DRINK AND WAS BROUGHT A SANDWICH AND SODA BY NURSE
--- NOTE | 2019-03-16 06:33 | PC.NURSE ---
PATIENT UPDATED ON THE TIME OF THEIR TRANSPORT COMING. PATIENT HAS NO OTHER NEEDS AT THIS TIME.
== END 2019-03-16 07:12 | disposition home or self-care (01) ==
PROVIDERS: Emergency Provider Emergency Medicine; Family Provider Family Medicine
DX: R07.9 Chest pain, unspecified (principal); I48.91 Unspecified atrial fibrillation; Z79.01 Long term (current) use of anticoagulants; Z87.891 Personal history of nicotine dependence
CPT/HCPCS: 71045; 80053; 83880; 84484; 85025; 85610; 85730; 93005; 96374; 96375; 99283; J2270; J2405

== ENCOUNTER → 2019-03-28 12:11 | Outpatient (BNVA) | payer MEDICARE, MEDICAID, SELFPAY | PROVIDERS: Visit Provider Orthopaedic Surgery | DX: S63.502A Unspecified sprain of left wrist, initial encounter (principal); X58.XXXA Exposure to other specified factors, initial encounter | CPT/HCPCS: 73110 ==

== ENCOUNTER 2019-03-29 04:35 | Emergency (ER) | payer MEDICARE, MEDICAID, SELFPAY ==
[2019-03-29] VITALS (8 sets, daily range): BP systolic 111–113; BP diastolic 59–84; PULSE 77–84; RESP 16–24; TEMP 36.7; O2SAT 76–98; BMI 26.4
--- NOTE | 2019-03-29 04:36 | ED_ITS ---
Entered by Pita Roche, acting as scribe for Leola Sequeira MD Documented by User: Leola Sequeira MD 03/29/19 05:51 HPI - Chest Pain General: Chief Complaint: Chest Pain Stated Complaint: chest pain Time Seen by Provider: 03/29/19 04:37 Source: patient and EMS Mode of arrival: EMS History of Present Illness: HPI narrative: 78 y/o male presents to the ED with complaint of chest pain. Pt has been living at home for the past few weeks, rather than the custodial. Pt states he was awakened by the pain several hours ago. Patient is well-known to the ER and has had multiple episodes of chest pain in the past. He denies any shortness of breath. He denies any worsening or improving factors. MD complaint: chest pain Onset (ago): hour(s) (2-3) Timing of current episode: constant Prior episodes: Yes Onset: during rest Associated symptoms: Deny abdominal pain, fever(s), nausea or vomiting Review of Systems Const: Denies: fever, chills, body aches or change in appetite Eyes: Denies: blurry vision or eye discomfort ENMT: Denies: throat pain or dental pain Card: Reports: chest pain Resp: Denies: productive cough GI: Denies: abdominal pain, nausea, vomiting or diarrhea : Denies: painful urination Musc: Denies: neck pain or back pain Skin/Breast: Denies: rash Neuro: Denies: headache Psych: Denies: depression Grant/Lymph: Denies: easy bruising All/Imm: Denies: hives PFS ED PFSH: Social History Smoking and tobacco status: former smoker Quit status (tobacco): has quit using tobacco Alcohol intake: former Physical Exam Const: COMMON NORMALS: oriented x3 OTHER: pt smells of old urine HENMT: COMMON NORMALS: normocephalic and head/scalp atraumatic HEAD & SCALP: normocephalic and atraumatic Eye: COMMON NORMALS: PERRL and EOMs intact bilaterally PUPIL: Yes PERRL Neck/C-Spine: COMMON NORMALS: full ROM and supple Chest: COMMONS NORMALS: inspection of chest normal and palpation of chest norm al Resp: COMMON NORMALS: normal respiratory effort, no retractions, no use of accessory muscles and clear to auscultation bilaterally AUSCULTATION: clear to auscultation bilaterally Cardio: COMMON NORMALS: regular rate, regular rhythm and no murmurs RATE: regular rate RHYTHM: regular rhythm GI: COMMON NORMALS: normal to inspection, nondistended, normoactive bowel sounds, soft to palpation, non-tender and no masses PALPATION: Yes soft Extremity: COMMON NORMALS: normal to inspection and full ROM Neuro: COMMON NORMALS: oriented x3, moves all extremities and no focal motor deficits Psych: COMMON NORMALS: thought process normal, cooperative and speech normal APPEARANCE: Yes unkempt SPEECH: Yes normal speech THOUGHT PROCESS: normal thought process Skin: COMMON NORMALS: no rashes or lesions noted and no wounds GENERAL SKIN EXAM: no rashes or lesions noted Course Vital Signs: Vital signs: Vital Signs Temperature 98.0 F 03/29/19 04:36 Pulse Rate 80 03/29/19 08:36 Respiratory Rate 17 03/29/19 08:36 Blood Pressure 113/84 03/29/19 08:36 Pulse Oximetry 97 03/29/19 08:36 MDM - Chest Pain MDM Narrative: Medical decision making narrative: Patient presents here with chest pain that is chronic in nature. His initial troponin is 28 which is unchanged from his previous troponins. X-ray here is normal as well. Will follow 2-hour troponin and care turned over to Dr. Krishnamurthy. Patient has no signs of pulmonary embolism here. Lab Data: Labs: Lab Results 03/29/19 03/29/19 03/29/19 Range/Units 05:05 05:05 05:05 WBC 11.6 H (4.0-10.0) 10^3/ uL RBC 4.40 (4.1-5.3) 10^6/u L Hgb 11.4 L (11.7-16.6) g/dL Hct 37.2 L (42.0-52.0) % MCV 84.5 (80-94) fL MCH 25.9 L (28.0-34.0) pg MCHC 30.6 (30.0-36.0) g/dL RDW 14.7 (12.1-15.1) % Plt Count 211 (130-400) 10^3/c mm MPV 10.3 (7.4-10.4) fL Neut % (Auto) 81.9 % Lymph % (Auto) 7.4 % [place] % (Auto) 7.5 % Eos % (Auto) 2.5 % Baso % (Auto) 0.3 % Neut # (Auto) 9.5 H (1.8-7.7) 10^3/u L Lymph # (Auto) 0.9 (0.8-4.8) 10^3/u L [place] # (Auto) 0.9 (0.2-0.9) 10^3/u L Eos # (Auto) 0.3 (0.0-0.8) 10^3/u L Baso # (Auto) 0.0 (0.0-0.1) 10^3/u L Nucleated RBC % (a uto) 0 % Nucleated RBCs # 0.0 /100WBC Sodium 141 (136-145) mmol/L Potassium 3.7 (3.5-5.1) mmol/L Chloride 106 (98-107) mmol/L Carbon Dioxide 24 (22-29) mmol/L Anion Gap 14.7 (5-19) BUN 22 (8-23) mg/dL Creatinine 0.9 (0.7-1.2) mg/dL Glucose 111 (65-115) mg/dL Calcium 9.3 (8.5-10.5) mg/dL Total Bilirubin 0.3 (0.15-1.2) mg/dL AST 12 (0-40) U/L ALT 9 (0-41) U/L Alkaline Phosphata se 97 (40-130) IU/L Troponin T Baselin e 28 H (0-15) ng/mL Troponin T 120 [place] (0-15) ng/mL Delta Troponin T (0-10) ABS# NT-Pro-B Natriuret Pep 591 H (0-450) pg/mL Total Protein 6.4 L (6.6-8.7) g/dL Albumin 3.6 (3.5-5.2) g/dL Globulin 2.8 (1.3-4.6) g/dL 03/29/19 Range/Units 07:14 WBC (4.0-10.0) 10^3/ uL RBC (4.1-5.3) 10^6/u L Hgb (11.7-16.6) g/dL Hct (42.0-52.0) % MCV (80-94) fL MCH (28.0-34.0) pg MCHC (30.0-36.0) g/dL RDW (12.1-15.1) % Plt Count (130-400) 10^3/c mm MPV (7.4-10.4) fL Neut % (Auto) % Lymph % (Auto) % [place] % (Auto) % Eos % (Auto) % Baso % (Auto) % Neut # (Auto) (1.8-7.7) 10^3/u L Lymph # (Auto) (0.8-4.8) 10^3/u L [place] # (Auto) (0.2-0.9) 10^3/u L Eos # (Auto) (0.0-0.8) 10^3/u L Baso # (Auto) (0.0-0.1) 10^3/u L Nucleated RBC % (a uto) % Nucleated RBCs # /100WBC Sodium (136-145) mmol/L Potassium (3.5-5.1) mmol/L Chloride (98-107) mmol/L Carbon Dioxide (22-29) mmol/L Anion Gap (5-19) BUN (8-23) mg/dL Creatinine (0.7-1.2) mg/dL Glucose (65-115) mg/dL Calcium (8.5-10.5) mg/dL Total Bilirubin (0.15-1.2) mg/dL AST (0-40) U/L ALT (0-41) U/L Alkaline Phosphata se (40-130) IU/L Troponin T Baselin e (0-15) ng/mL Troponin T 120 [place] 30.65 H (0-15) ng/mL Delta Troponin T 2.65 (0-10) ABS# NT-Pro-B Natriuret Pep (0-450) pg/mL Total Protein (6.6-8.7) g/dL Albumin (3.5-5.2) g/dL Globulin (1.3-4.6) g/dL Imaging Data^: CXR: Attestation: I personally reviewed and interpreted this imaging study as follows: My impression: no acute abnormality EKG Data^: EKG 1: Attestation: I personally reviewed and interpreted this EKG as follows: EKG interpretation date: 03/29/19 EKG interpretation time: 04:43 Interpretation: Atrial fib heart rate [address] or T wave abnormalities QRS 100 QTc 416 Discharge Plan Discharge Patient Disposition: Home, Self-Care Clinical Impression: Atypical chest pain Condition: Stable Prescriptions: No Action esomeprazole magnesium [Nexium] 40 mg capsule,delayed release(DR/EC) 40 mg PO DAILY RF: 0 nitroglycerin [Nitrostat] 0.4 mg tablet, sublingual 0.4 mg SUBLINGUAL Q5M PRN (Reason: Chest Pain) RF: 0 tamsulosin [Flomax] 0.4 mg capsule 0.4 mg PO DAILY RF: 0 albuterol sulfate 2.5 mg/0.5 mL solution for nebulization 10 mg INHALATION Q4H PRN (Reason: Shortness of breathe) RF: 0 risperidone 0.5 mg tablet 0.5 mg PO BID RF: 0 donepezil [Aricept] 10 mg tablet 10 mg PO .AM RF: 0 memantine [Namenda] 10 mg tablet 10 mg PO BID RF: 0 melatonin 5 mg capsule PO .HS RF: 0 vitamin B complex [B Complex-Vitamin B12] Tablet 1 tab PO QAM RF: 0 ascorbate calcium (vitamin C) 500 mg tablet 500 mg PO DAILY RF: 0 Eliquis 5 mg tablet 5 mg PO BID 90 Days Qty: 180 RF: 1 furosemide 40 mg tablet 40 mg PO BID Qty: 180 RF: 1 potassium chloride 20 mEq tablet extended release 20 meq PO DAILY 90 Days Qty: 90 RF: 1 Referrals: Carlos Trujillo MD [Physician] - (Follow-up with Dr. Trujillo within the week) Discharge Diet: Usual diet Discharge Activity: Limit activity as instructed Activity Restrictions/Additional Instructions: Avoid strenuous activity. Follow-up with Dr. Trujillo within the week. Discharge Date/Time: 03/29/19 09:17 Coding Level of Care Code ED [facility] Consultant for Chg Fwd Exam Comprehensive Documented by User: Cristobal Krishnamurthy DO 03/29/19 15:19 HPI - Chest Pain General: Chief Complaint: Chest Pain Stated Complaint: chest pain Time Seen by Provider: 03/29/19 04:37 PFSH ED PFSH: Social History Smoking and tobacco status: former smoker Quit status (tobacco): has quit using tobacco Alcohol intake: former Course ED course: 2-hour troponin is negative. We will go ahead and discharge him home have him follow-up with his primary care doctor return if worsens. Can use sublingual nitro if has any chest pain. Vital Signs: Vital signs: Vital Signs Temperature 98.0 F 03/29/19 04:36 Pulse Rate 80 03/29/19 08:36 Respiratory Rate 17 03/29/19 08:36 Blood Pressure 113/84 03/29/19 08:36 Pulse Oximetry 97 03/29/19 08:36 MDM - Chest Pain Lab Data: Labs: Lab Results 03/29/19 03/29/19 03/29/19 Range/Units 05:05 05:05 05:05 WBC 11.6 H (4.0-10.0) 10^3/ uL RBC 4.40 (4.1-5.3) 10^6/u L Hgb 11.4 L (11.7-16.6) g/dL Hct 37.2 L (42.0-52.0) % MCV 84.5 (80-94) fL MCH 25.9 L (28.0-34.0) pg MCHC 30.6 (30.0-36.0) g/dL RDW 14.7 (12.1-15.1) % Plt Count 211 (130-400) 10^3/c mm MPV 10.3 (7.4-10.4) fL Neut % (Auto) 81.9 % Lymph % (Auto) 7.4 % [place] % (Auto) 7.5 % Eos % (Auto) 2.5 % Baso % (Auto) 0.3 % Neut # (Auto) 9.5 H (1.8-7.7) 10^3/u L Lymph # (Auto) 0.9 (0.8-4.8) 10^3/u L [place] # (Auto) 0.9 (0.2-0.9) 10^3/u L Eos # (Auto) 0.3 (0.0-0.8) 10^3/u L Baso # (Auto) 0.0 (0.0-0.1) 10^3/u L Nucleated RBC % (a uto) 0 % Nucleated RBCs # 0.0 /100WBC Sodium 141 (136-145) mmol/L Potassium 3.7 (3.5-5.1) mmol/L Chloride 106 (98-107) mmol/L Carbon Dioxide 24 (22-29) mmol/L Anion Gap 14.7 (5-19) BUN 22 (8-23) mg/dL Creatinine 0.9 (0.7-1.2) mg/dL Glucose 111 (65-115) mg/dL Calcium 9.3 (8.5-10.5) mg/dL Total Bilirubin 0.3 (0.15-1.2) mg/dL AST 12 (0-40) U/L ALT 9 (0-41) U/L Alkaline Phosphata se 97 (40-130) IU/L Troponin T Baselin e 28 H (0-15) ng/mL Troponin T 120 [place] (0-15) ng/mL Delta Troponin T (0-10) ABS# NT-Pro-B Natriuret Pep 591 H (0-450) pg/mL Total Protein 6.4 L (6.6-8.7) g/dL Albumin 3.6 (3.5-5.2) g/dL Globulin 2.8 (1.3-4.6) g/dL 03/29/19 Range/Units 07:14 WBC (4.0-10.0) 10^3/ uL RBC (4.1-5.3) 10^6/u L Hgb (11.7-16.6) g/dL Hct (42.0-52.0) % MCV (80-94) fL MCH (28.0-34.0) pg MCHC (30.0-36.0) g/dL RDW (12.1-15.1) % Plt Count (130-400) 10^3/c mm MPV (7.4-10.4) fL Neut % (Auto) % Lymph % (Auto) % [place] % (Auto) % Eos % (Auto) % Baso % (Auto) % Neut # (Auto) (1.8-7.7) 10^3/u L Lymph # (Auto) (0.8-4.8) 10^3/u L [place] # (Auto) (0.2-0.9) 10^3/u L Eos # (Auto) (0.0-0.8) 10^3/u L Baso # (Auto) (0.0-0.1) 10^3/u L Nucleated RBC % (a uto) % Nucleated RBCs # /100WBC Sodium (136-145) mmol/L Potassium (3.5-5.1) mmol/L Chloride (98-107) mmol/L Carbon Dioxide (22-29) mmol/L Anion Gap (5-19) BUN (8-23) mg/dL Creatinine (0.7-1.2) mg/dL Glucose (65-115) mg/dL Calcium (8.5-10.5) mg/dL Total Bilirubin (0.15-1.2) mg/dL AST (0-40) U/L ALT (0-41) U/L Alkaline Phosphata se (40-130) IU/L Troponin T Baselin e (0-15) ng/mL Troponin T 120 [place] 30.65 H (0-15) ng/mL Delta Troponin T 2.65 (0-10) ABS# NT-Pro-B Natriuret Pep (0-450) pg/mL Total Protein (6.6-8.7) g/dL Albumin (3.5-5.2) g/dL Globulin (1.3-4.6) g/dL Discharge Plan Discharge Patient Disposition: Home, Self-Care Clinical Impression: Atypical chest pain Condition: Stable Prescriptions: No Action esomeprazole magnesium [Nexium] 40 mg capsule,delayed release(DR/EC) 40 mg PO DAILY RF: 0 nitroglycerin [Nitrostat] 0.4 mg tablet, sublingual 0.4 mg SUBLINGUAL Q5M PRN (Reason: Chest Pain) RF: 0 tamsulosin [Flomax] 0.4 mg capsule 0.4 mg PO DAILY RF: 0 albuterol sulfate 2.5 mg/0.5 mL solution for nebulization 10 mg INHALATION Q4H PRN (Reason: Shortness of breathe) RF: 0 risperidone 0.5 mg tablet 0.5 mg PO BID RF: 0 donepezil [Aricept] 10 mg tablet 10 mg PO .AM RF: 0 memantine [Namenda] 10 mg tablet 10 mg PO BID RF: 0 melatonin 5 mg capsule PO .HS RF: 0 vitamin B complex [B Complex-Vitamin B12] Tablet 1 tab PO QAM RF: 0 ascorbate calcium (vitamin C) 500 mg tablet 500 mg PO DAILY RF: 0 Eliquis 5 mg tablet 5 mg PO BID 90 Days Qty: 180 RF: 1 furosemide 40 mg tablet 40 mg PO BID Qty: 180 RF: 1 potassium chloride 20 mEq tablet extended release 20 meq PO DAILY 90 Days Qty: 90 RF: 1 Referrals: Carlos Trujillo MD [Physician] - (Follow-up with Dr. Trujillo within the week) Discharge Diet: Usual diet Discharge Activity: Limit activity as instructed Activity Restrictions/Additional Instructions: Avoid strenuous activity. Follow-up with Dr. Trujillo within the week. Discharge Date/Time: 03/29/19 09:17 Coding Level of Care Code ED [facility] Consultant for Chg Fwd Exam Comprehensive The documentation recorded by the Melchor arriaza Ashley, accurately reflects the service I personally performed and the decisions made by Hua san Korby, MD
--- NOTE | 2019-03-29 04:37 | PC.NURSE ---
Introduced self to patient and initiated vital signs. Patient presents A&O x 4. NAD, ABCs intact, MAEW and agreeable to treatment. Respirations are even and unlabored. Pt states medications taken before coming to ER are that the chief complaint for the ER visit today is due to Pt also complaining of . IV observed in . Pt denies any vision disturbances or lightheadedness. Bed left in lowest position in semi-fowlers with side rails up.Reassured patient of needs and will continue to monitor. Awaiting provider at bedside.
--- NOTE | 2019-03-29 04:38 | ECG_ITS ---
Measurements Intervals [place] Rate: 82 P: HI: 0 QRS: -18 QRSD: 100 T: 74 QT: 377 QTc: 443 ATRIAL FIBRILLATION POSSIBLE RIGHT VENTRICULAR CONDUCTION DELAY [RSR (QR) IN V1/V2] NONSPECIFIC T-WAVE ABNORMALITY ABNORMAL RHYTHM ECG Compared to ECG 03/16/2019 03:04:38 No significant changes Electronically Signed On 03-29-2019 14:25:52 DROP WIRE STRINGER by Fredis Elder M.D. [email or web address]
--- NOTE | 2019-03-29 04:38 | XR_ITS ---
WS: [id number] XR chest 1V portable [id number] REASON FOR EXAM: cp FINDINGS: This study shows a catheter extending from the brain down through the abdomen on the left s stepan the positioning is satisfactory. The heart is not enlarged. The lung hathaway are well aerated no pneumonia, pleural effusion, pulmonary edema. XR/XR chest 1V portable [id number] IMPRESSION: Shunt tube is seen on the left side good position. The lung hathaway are normal.
[2019-03-29] MEDS: aspirin 81 mg Chew Tablet 324 MG PO (05:04)
[2019-03-29] MEDS: morphine 4 mg/mL SDV 1 mL IVP (05:05)
[2019-03-29 05:12] LABS: Basophils % 0.3 %; Eosinophils # 0.3 10^3/uL (0.0-0.8); Eosinophils % 2.5 %; Hematocrit 37.2 % (42.0-52.0); Hemoglobin 11.4 g/dL (11.7-16.6); Lymphocytes # 0.9 10^3/uL (0.8-4.8); Lymphocytes % 7.4 %; Mean Corpuscular HGB Conc 30.6 g/dL (30.0-36.0); Mean Corpuscular Hemoglobin 25.9 pg (28.0-34.0); Mean Corpuscular Volume 84.5 fL (80-94); Mean Platelet Volume 10.3 fL (7.4-10.4); Monocytes # 0.9 10^3/uL (0.2-0.9); Monocytes % 7.5 %; Neutrophils # 9.5 10^3/uL (1.8-7.7); Neutrophils % 81.9 %; Nucleated Red Blood Cells % 0 %; Platelet Count 211 10^3/cmm (130-400); Red Cell Distribution Width 14.7 % (12.1-15.1); White Blood Count 11.6 10^3/uL (4.0-10.0)
[2019-03-29 05:32] LABS: Troponin(5th) Baseline 28 ng/mL (0-15)
[2019-03-29 05:41] LABS: Alanine Aminotransferase 9 U/L (0-41); Albumin Level 3.6 g/dL (3.5-5.2); Alkaline Phosphatase 97 IU/L (40-130); Anion Gap 14.7 (5-19); Aspartate Amino Transferase 12 U/L (0-40); Blood Urea Nitrogen 22 mg/dL (8-23); Calcium 9.3 mg/dL (8.5-10.5); Carbon Dioxide 24 mmol/L (22-29); Chloride 106 mmol/L (98-107); Globulin 2.8 g/dL (1.3-4.6); Glucose 111 mg/dL (65-115); NT Pro B Type Natriuretic Pept 591 pg/mL (0-450); Potassium 3.7 mmol/L (3.5-5.1); Sodium 141 mmol/L (136-145); Total Bilirubin 0.3 mg/dL (0.15-1.2); Total Protein 6.4 g/dL (6.6-8.7)
--- NOTE | 2019-03-29 06:34 | PC.NURSE ---
second EKG done at 0634 and shown to ER doctor
[2019-03-29 07:49] LABS: Troponin 5 2HR 30.65 ng/mL (0-15); Troponin 5 2HR Delta 2.65 ABS# (0-10)
--- NOTE | 2019-03-29 10:38 | ECG_ITS ---
Measurements Intervals [place] Rate: 77 P: SD: 0 QRS: -23 QRSD: 100 T: 0 QT: 388 QTc: 440 ATRIAL FIBRILLATION WITH ABERRANT CONDUCTION OR VENTRICULAR PREMATURE COMPLEXES BORDERLINE LEFT AXIS DEVIATION [QRS AXIS < -20] POSSIBLE RIGHT VENTRICULAR CONDUCTION DELAY [RSR (QR) IN V1/V2] NONSPECIFIC ST & T-WAVE ABNORMALITY ABNORMAL RHYTHM ECG Compared to ECG 03/16/2019 03:04:38 Ventricular premature complex(es) now present Aberrant conduction of supraventricular beat(s) now present T-wave abnormality still present Electronically Signed On 03-29-2019 14:28:10 FAMILY RESOURCE MANAGEMENT PROFESSOR by Fredis Elder M.D. [id number]
== END 2019-03-29 09:17 | disposition home or self-care (01) ==
PROVIDERS: Emergency Medicine; Emergency Provider Family Medicine; Family Provider Family Medicine
DX: R07.89 Other chest pain (principal); Z87.891 Personal history of nicotine dependence
CPT/HCPCS: 36415; 71045; 80053; 83880; 84484; 85025; 93005; 96374; 96375; 99283; 99284; J2270

== ENCOUNTER 2019-03-31 22:59 | Inpatient (IN) | payer MEDICARE, MEDICAID, SELFPAY ==
[2019-03-31 23:05] VITALS: BP 110/57; PULSE 69; RESP 16; TEMP 36.9; O2SAT 96; BMI 27.7
--- NOTE | 2019-03-31 23:08 | XR_ITS ---
WS: [id number] XR chest 1V portable [id number] REASON FOR EXAM: cough FINDINGS: A shunt tube is again noted extending from the brain down through the abdomen on the left s stepan positioning unchanged. There is arteriosclerotic changes seen in the arch of the aorta. There is no definite pneumonia, pleural effusion, pulmonary edema, and no mass effect. The hilum and apices are normal. XR/XR chest 1V portable [id number] IMPRESSION: Shunt tube again identified on the left side in good position Incidentally the films are marked wrong.
--- NOTE | 2019-03-31 23:08 | ECG_ITS ---
Measurements Intervals [place] Rate: 64 P: AK: 0 QRS: -21 QRSD: 114 T: 87 QT: 420 QTc: 433 ATRIAL FIBRILLATION BORDERLINE LEFT AXIS DEVIATION [QRS AXIS < -20] LOW QRS VOLTAGE IN PRECORDIAL LEADS [QRS DEFLECTION < 1.0 mV IN CHEST LEADS] POSSIBLE RIGHT VENTRICULAR CONDUCTION DELAY [RSR (QR) IN V1/V2] NONSPECIFIC T-WAVE ABNORMALITY Compared to ECG 03/29/2019 06:31:19 Low QRS voltage now present Ventricular premature complex(es) no longer present Aberrant conduction of supraventricular beat(s) no longer present T-wave abnormality still present Electronically Signed On 04-01-2019 17:00:11 DEVELOPER ADVISOR by Ashley Bethea M.D. [id number]
--- NOTE | 2019-03-31 23:10 | ED_ITS ---
Entered by Pita Roche, acting as scribe for Jaci Leger HPI - Chest Pain General: Chief Complaint: Chest Pain Stated Complaint: CP Time Seen by Provider: 03/31/19 23:03 Source: patient Mode of arrival: ambulatory History of Present Illness: HPI narrative: 78 y/o male presents to the ED with chest pain. Pt states the pain is in his esophagus and radiates down. He has hx of esophageal cancer and states he thinks that is what is causing the pain. This started this AM and has been intermittent throughout the day. MD complaint: chest pain (esophageal pain) Pertinent past history: other (esophageal cancer) Onset (ago): day(s) (1) Timing of current episode: episodic Prior episodes: Yes Pain location: epigastric Severity: similar to previous episodes Quality: tightness and aching Relieving factors: nothing Associated symptoms: Deny abdominal pain, diaphoresis, dyspnea, fever(s), nausea or vomiting Review of Systems General: Reports: other (negative unless marked) Const: Denies: fever, chills, body aches, fatigue, malaise or diaphoresis Eyes: Denies: change in vision or blurry vision Resp: Denies: shortness of breath, productive cough, non-productive cough, wheezing, coughing up blood or chest congestion GI: Denies: abdominal pain, nausea, vomiting, vomiting blood, coffee grounds in vomit, diarrhea, constipation, cramping, blood in stool or black tarry stool : Denies: flank pain, difficulty urinating, painful urination, urinary frequency, urinary urgency, decreased urine ouput, urinary incontinence or blood in urine Musc: Denies: neck pain, back pain, extremity pain, extremity swelling, joint pain, joint swelling, joint warmth or joint stiffness Skin/Breast: Denies: rash, skin tenderness or yellow skin Neuro: Denies: headache, numbness in extremities, weakness in extremities, changes in sensation, lack of coordination, difficulty walking, dizziness, vertigo or confusion Endo: Denies: excessive thirst, tired all the time, cold intolerance, excessive sweating, flushing or hot flashes Grant/Lymph: Denies: easy bruising, easy bleeding, petechiae or enlarged lymph nodes All/Imm: Denies: hives, throat swelling, tongue swelling, facial swelling or acute wheezing PFSH ED PFSH: Social History Smoking and tobacco status: former smoker Quit status (tobacco): has quit using tobacco Alcohol intake: former Physical Exam Const: COMMON NORMALS: no apparent distress, oriented x3, no limitations, h ealthy appearing and well nourished EXAM LIMITATIONS: no altered mental status ORIENTATION/CONSCIOUSNESS: Yes awake HENMT: COMMON NORMALS: normocephalic, head/scalp atraumatic, hearing grossly normal bilaterally, external ears normal, EAC's normal, external nose normal and moist oral mucous membranes HEAD & SCALP: normal to inspection, normocephalic and atraumatic FACE & SINUS: normal facial exam and face symmetric NOSE: external nose normal and nares normal EXTERNAL EAR: Yes external ears normal EXTERNAL AUDITORY CANAL: EAC's normal MOUTH: oral and palatal mucosa normal and tongue normal Eye: COMMON NORMALS: PERRL, EOMs intact bilaterally, conjunctivae normal and no scleral icterus GENERAL EYE: normal appearance of both eyes and normal light reflex CONJUNCTIVA: Yes conjunctivae normal SCLERA: sclerae normal CORNEA: Yes corneas normal PUPIL: Yes PERRL DIRECT OPHTHALMOSCOPY: Yes normal light reflex Neck/C-Spine: COMMON NORMALS: full ROM, no lymphadenopathy, supple, no meningeal signs and no JVD GENERAL: Yes normal visual inspection and Yes trachea midline CERVICAL SPINE: Yes cervical ROM normal Chest: COMMONS NORMALS: inspection of chest normal and palpation of chest normal Resp: COMMON NORMALS: normal respiratory effort, no retractions, no use of accessory muscles and clear to auscultation bilaterally EFFORT & INSPECTION: Yes able to speak in complete sentences AUSCULTATION: clear to auscultation bilaterally Cardio: COMMON NORMALS: no JVD, regular rate, regular rhythm, S1 normal heart sound, S2 normal heart sound, no gallops, no clicks, no murmurs and no rub JUGULAR VENOUS DISTENTION: no JVD RATE: regular rate RHYTHM: regular rhythm HEART SOUNDS: S1 normal and S2 normal GI: COMMON NORMALS: soft to palpation, non-tender, no hepatosplenomegaly and no masses INSPECTION: Yes normal to inspection PALPATION: Yes soft and Yes no hepatosplenomegaly : COMMON NORMALS: Yes no CVA tenderness BLADDER/KIDNEY EXAM: Yes no CVA tenderness Back/Pelvis: COMMON NORMALS: no CVA tenderness, thoracic and lumbar spine normal to inspection, no thoracic nor lumbar tenderness and thoraco-lumbar ROM normal Extremity: COMMON NORMALS: normal to inspection, full ROM, normal capillary refill, no joint enlargement, no clubbing, cyanosis or edema and no calf tenderness Neuro: COMMON NORMALS: oriented x3, CN's II-XII intact bilaterally, moves all extremities, no focal motor deficits and no sensory deficits noted MENINGEAL SIGNS: Yes no meningeal signs Psych: COMMON NORMALS: mental status grossly normal, thought process normal, cooperative, affect normal, speech normal and activity/motor behavior normal SPEECH: Yes normal speech THOUGHT PROCESS: normal thought process Skin: COMMON NORMALS: no rashes or lesions noted, skin turgor normal, no jaundice, no petechiae and no mottling GENERAL SKIN EXAM: no rashes or lesions noted and turgor normal Course Vital Signs: Vital signs: Vital Signs Temperature 98.5 F 03/31/19 23:05 Pulse Rate 69 04/01/19 03:02 Respiratory Rate 16 04/01/19 03:02 Blood Pressure 99/54 04/01/19 03:02 Pulse Oximetry 99 04/01/19 03:02 MDM - Chest Pain MDM Narrative: Medical decision making narrative: Willie is a 78-year-old male who comes in complaining of chest pain. His symptoms seem to be primarily GI related. He complains of burning in his chest that comes up into his throat. He has a history of esophageal cancer. Per his last oncology note they considered possibly doing a dilation for his symptoms but he has not been seen in almost a year. He states he does want to come in to have this done. It sounds as though Dr. Trujillo has done this in the past. We will go ahead and admit him to the hospital for evaluation. Lab Data: Attestation: I reviewed the patient's lab results. Labs: Lab Results 03/31/19 03/31/19 03/31/19 Range/Units 23:13 23:13 23:13 WBC 7.0 (4.0-10.0) 10^3/ uL RBC 4.15 (4.1-5.3) 10^6/u L Hgb 10.8 L (11.7-16.6) g/dL Hct 34.5 L (42.0-52.0) % MCV 83.1 (80-94) fL MCH 26.0 L (28.0-34.0) pg MCHC 31.3 (30.0-36.0) g/dL RDW 15.3 H (12.1-15.1) % Plt Count 232 (130-400) 10^3/c mm MPV 11.0 H (7.4-10.4) fL Neut % (Auto) 69.3 % Lymph % (Auto) 16.7 % Custer % (Auto) 8.2 % Eos % (Auto) 5.3 % Baso % (Auto) 0.4 % Neut # (Auto) 4.8 (1.8-7.7) 10^3/u L Lymph # (Auto) 1.2 (0.8-4.8) 10^3/u L Custer # (Auto) 0.6 (0.2-0.9) 10^3/u L Eos # (Auto) 0.4 (0.0-0.8) 10^3/u L Baso # (Auto) 0.0 (0.0-0.1) 10^3/u L Nucleated RBC % (a uto) 0 % Nucleated RBCs # 0.0 /100WBC Sodium 138 (136-145) mmol/L Potassium 3.4 L (3.5-5.1) mmol/L Chloride 102 (98-107) mmol/L Carbon Dioxide 22 (22-29) mmol/L Anion Gap 17.4 (5-19) BUN 13 (8-23) mg/dL Creatinine 1.0 (0.7-1.2) mg/dL Glucose 125 H (65-115) mg/dL Calcium 9.4 (8.5-10.5) mg/dL Total Bilirubin 0.2 (0.15-1.2) mg/dL AST 11 (0-40) U/L ALT 9 (0-41) U/L Alkaline Phosphata se 91 (40-130) IU/L Troponin T Baselin e 42 H (0-15) ng/mL Troponin T 120 Min [place] (0-15) ng/mL Delta Troponin T (0-10) ABS# NT-Pro-B Natriuret Pep 686 H (0-450) pg/mL Total Protein 6.6 (6.6-8.7) g/dL Albumin 3.7 (3.5-5.2) g/dL Globulin 2.9 (1.3-4.6) g/dL Lipase 29 (13-60) U/L 04/01/19 Range/Units 01:13 WBC (4.0-10.0) 10^3/ uL RBC (4.1-5.3) 10^6/u L Hgb (11.7-16.6) g/dL Hct (42.0-52.0) % MCV (80-94) fL MCH (28.0-34.0) pg MCHC (30.0-36.0) g/dL RDW (12.1-15.1) % Plt Count (130-400) 10^3/c mm MPV (7.4-10.4) fL Neut % (Auto) % Lymph % (Auto) % [place] % (Auto) % Eos % (Auto) % Baso % (Auto) % Neut # (Auto) (1.8-7.7) 10^3/u L Lymph # (Auto) (0.8-4.8) 10^3/u L [place] # (Auto) (0.2-0.9) 10^3/u L Eos # (Auto) (0.0-0.8) 10^3/u L Baso # (Auto) (0.0-0.1) 10^3/u L Nucleated RBC % (a uto) % Nucleated RBCs # /100WBC Sodium (136-145) mmol/L Potassium (3.5-5.1) mmol/L Chloride (98-107) mmol/L Carbon Dioxide (22-29) mmol/L Anion Gap (5-19) BUN (8-23) mg/dL Creatinine (0.7-1.2) mg/dL Glucose (65-115) mg/dL Calcium (8.5-10.5) mg/dL Total Bilirubin (0.15-1.2) mg/dL AST (0-40) U/L ALT (0-41) U/L Alkaline Phosphata se (40-130) IU/L Troponin T Baselin e (0-15) ng/mL Troponin T 120 Min [place] 37.39 H (0-15) ng/mL Delta Troponin T -4.61 L (0-10) ABS# NT-Pro-B Natriuret Pep (0-450) pg/mL Total Protein (6.6-8.7) g/dL Albumin (3.5-5.2) g/dL Globulin (1.3-4.6) g/dL Lipase (13-60) U/L Imaging Data^: CT Chest: Radiologist's impression: [address] [address] [address] Scan Report Signed Patient: Willie Ram Unit #: [id number] : 1940 Age/Sex: 78 / M ADM Date: 03/31/19 Loc: ER Room/Bed: Attending Dr: Ordering Provider/Ordering MD: Jaci Leger DO Date of Service: 03/31/19 Procedure(s): CT chest w con* [id number] Accession Number(s): [id number] Report Number: [id number] PROCEDURE INFORMATION: Exam: CT Chest With Contrast Exam date and time: 03/31/2019 11:54 PM Age: 78 years old Clinical indication: Chest pain; Type not specified; Additional info: Pain, HX esophageal CA TECHNIQUE: Imaging protocol: Computed tomography of the chest with intravenous contrast. Total DLP: 795.13 mGy-cm Radiation optimization: All CT scans at this facility use at least one of these dose optimization techniques: automated exposure control; mA and/or kV adjustment per patient size (includes targeted exams where dose is matched to clinical indication); or iterative reconstruction. Contrast material: OMNI 300; Contrast volume: 95 ml; Contrast route: IV; COMPARISON: [place] [id number] 04/09/2018 1:28 PM FINDINGS: Lungs: There is mild centrilobular emphysema not significantly changed from previous. There is some mild dependent atelectasis at the right lung base. Pleural space: There is a small right pleural effusion. Heart: There is moderate atherosclerotic calcification of the coronary arteries. Mediastinum: There is mild esophageal dilatation and some fluid in the distal esophagus. Esophageal dilatation is increased from the previous examination. There is also thickening of the distal esophagus which is more prominent than on the prior study. Aorta: There are atherosclerotic changes in the aortic arch without evidence of aneurysm or dissection. Lymph nodes: There is an 11 x 13 mm precarinal lymph node not changed from previous. There is otherwise no adenopathy within the chest. Liver: There is small cyst in the right lobe of the liver not changed from previous. Bones/joints: Mild degenerative changes. No acute fracture. Soft tissues: Unremarkable. CT/CT chest w con* [id number] IMPRESSION: 1. Mild esophageal dilatation and increasing thickening of the distal esophagus. Further evaluation is suggested 2. Small right pleural effusion. 3. No acute infiltrate. Radiation Dose CTDIVOL = (mGy): DLP = 795.13 (mGy-cm) Dictated By: Isaias Del Toro Signed By: Isaias Del Toro Signed Date/Time: 04/01 DD/ 8 EKG Data^: EKG 1: Attestation: I personally reviewed and interpreted this EKG as follows: EKG interpretation date: 03/31/19 EKG interpretation time: 23:19 Interpretation: Atrial fibrillation with ventricular rate of 64 beats a minute, no acute ST-T wave changes. EKG 2: Attestation: I personally reviewed and interpreted this EKG as follows: EKG interpretation date: 04/01/19 EKG interpretation time: 01:13 Interpretation: Atrial fibrillation with ventricular rate of 6 8 beats a minute, nonspecific ST-T wave changes, unchanged from previous. Discharge Plan Discharge Patient Disposition: Placed in Observation Admit Provider: Radha Sepulveda Clinical Impression: Chest pain Condition: Stable Interventions: ED Discharge Assessment Last Done: 04/01/19 03:02 Coding Level of Care Code ED Qa Reviewer for Chg Fwd Exam Comprehensive The documentation recorded by the Melchor arriaza Ashley, accurately reflects the service I personally performed and the decisions made by Arsen san Eli N Mar 31, 2019 22:59
[2019-03-31 23:23] LABS: Basophils % 0.4 %; Eosinophils # 0.4 10^3/uL (0.0-0.8); Eosinophils % 5.3 %; Hematocrit 34.5 % (42.0-52.0); Hemoglobin 10.8 g/dL (11.7-16.6); Lymphocytes # 1.2 10^3/uL (0.8-4.8); Lymphocytes % 16.7 %; Mean Corpuscular HGB Conc 31.3 g/dL (30.0-36.0); Mean Corpuscular Volume 83.1 fL (80-94); Monocytes # 0.6 10^3/uL (0.2-0.9); Monocytes % 8.2 %; Neutrophils # 4.8 10^3/uL (1.8-7.7); Neutrophils % 69.3 %; Nucleated Red Blood Cells % 0 %; Platelet Count 232 10^3/cmm (130-400); Red Blood Count 4.15 10^6/uL (4.1-5.3); Red Cell Distribution Width 15.3 % (12.1-15.1)
[2019-03-31 23:29] VITALS: BP 106/60; PULSE 71; RESP 16; O2SAT 96
[2019-03-31] MEDS: nitroglycerin 0.4 mg sublingual Tablet SUBLINGUAL (23:35)
--- NOTE | 2019-03-31 23:36 | PC.NURSE ---
PATIENT STATES HIS CHEST PAIN WOKE HIM UP THIS MORNING AND DIDN'T GO AWAY SO PATIENT DECIDED TO COME TO THE ED. PATIENT STATES THAT HIS CHEST PAIN IS LOCATED CENTRALLY IN HIS CHEST AND UP INTO HIS NECK AND STOMACH AREA.
[2019-03-31 23:39] VITALS: BP 91/52; PULSE 75; RESP 16; O2SAT 94
[2019-03-31] MEDS: sodium chloride 0.9% 1,000 ML 999 ML IV (23:50)
--- NOTE | 2019-03-31 23:53 | CTR_ITS ---
PROCEDURE INFORMATION: Exam: CT Chest With Contrast Exam date and time: 03/31/2019 11:54 PM Age: 78 years old Clinical indication: Chest pain; Type not specified; Additional info: Pain, HX esophageal CA TECHNIQUE: Imaging protocol: Computed tomography of the chest with intravenous contrast. Total DLP: 795.13 mGy-cm Radiation optimization: All CT scans at this facility use at least one of these dose optimization techniques: automated exposure control; mA and/or kV adjustment per patient size (includes targeted exams where dose is matched to clinical indication); or iterative reconstruction. Contrast material: OMNI 300; Contrast volume: 95 ml; Contrast route: IV; COMPARISON: [place] [id number] 04/09/2018 1:28 PM FINDINGS: Lungs: There is mild centrilobular emphysema not significantly changed from previous. There is some mild dependent atelectasis at the right lung base. Pleural space: There is a small right pleural effusion. Heart: There is moderate atherosclerotic calcification of the coronary arteries. Mediastinum: There is mild esophageal dilatation and some fluid in the distal esophagus. Esophageal dilatation is increased from the previous examination. There is also thickening of the distal esophagus which is more prominent than on the prior study. Aorta: There are atherosclerotic changes in the aortic arch without evidence of aneurysm or dissection. Lymph nodes: There is an 11 x 13 mm precarinal lymph node not changed from previous. There is otherwise no adenopathy within the chest. Liver: There is small cyst in the right lobe of the liver not changed from previous. Bones/joints: Mild degenerative changes. No acute fracture. Soft tissues: Unremarkable. CT/CT chest w con* [id number] IMPRESSION: 1. Mild esophageal dilatation and increasing thickening of the distal esophagus. Further evaluation is suggested 2. Small right pleural effusion. 3. No acute infiltrate. Radiation Dose CTDIVOL = (mGy): DLP = 795.13 (mGy-cm)
[2019-04-01] VITALS (17 sets, daily range): BP systolic 99–154; BP diastolic 52–82; PULSE 69–94; RESP 14–22; TEMP 36.6–36.9; O2SAT 92–100
[2019-04-01 00:20] LABS: Troponin(5th) Baseline 42 ng/mL (0-15)
[2019-04-01 00:27] LABS: Alanine Aminotransferase 9 U/L (0-41); Albumin Level 3.7 g/dL (3.5-5.2); Alkaline Phosphatase 91 IU/L (40-130); Anion Gap 17.4 (5-19); Aspartate Amino Transferase 11 U/L (0-40); Blood Urea Nitrogen 13 mg/dL (8-23); Calcium 9.4 mg/dL (8.5-10.5); Carbon Dioxide 22 mmol/L (22-29); Chloride 102 mmol/L (98-107); Globulin 2.9 g/dL (1.3-4.6); Glucose 125 mg/dL (65-115); Lipase 29 U/L (13-60); NT Pro B Type Natriuretic Pept 686 pg/mL (0-450); Potassium 3.4 mmol/L (3.5-5.1); Sodium 138 mmol/L (136-145); Total Bilirubin 0.2 mg/dL (0.15-1.2); Total Protein 6.6 g/dL (6.6-8.7)
--- NOTE | 2019-04-01 00:43 | PC.NURSE ---
PATIENT TO CT
[2019-04-01] MEDS: iohexol 300 mg/mL 100 mL Btl IV (00:48)
--- NOTE | 2019-04-01 01:08 | ECG_ITS ---
Measurements Intervals [place] Rate: 71 P: TX: 0 QRS: 15 QRSD: 102 T: 36 QT: 425 QTc: 464 ATRIAL FIBRILLATION LOW QRS VOLTAGE IN PRECORDIAL LEADS [QRS DEFLECTION < 1.0 mV IN CHEST LEADS] POSSIBLE RIGHT VENTRICULAR CONDUCTION DELAY [RSR (QR) IN V1/V2] NONSPECIFIC T-WAVE ABNORMALITY Compared to ECG 03/29/2019 06:31:19 Low QRS voltage now present Ventricular premature complex(es) no longer present Aberrant conduction of supraventricular beat(s) no longer present T-wave abnormality still present Electronically Signed On 04-01-2019 17:24:53 HEALTH AND WELLNESS COACH by Ashley Bethea M.D. [id number]
[2019-04-01 01:48] LABS: Troponin 5 2HR 37.39 ng/mL (0-15)
[2019-04-01 01:53] LABS: Troponin 5 2HR Delta -4.61 ABS# (0-10)
--- NOTE | 2019-04-01 03:14 | P.HP_ITS ---
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 He has had multiple visits to the ED complaining of atypical chest pain, generalized weakness, failure to thrive. He recently saw cardiology MACHINING ENGINEER on March 06. Per review of notes he declined any complaints of chest pain at that time. Last stress test dates back to April 2017 which did not show significant coronary ischemia. Last LVEF was at 49% old inferolateral wall changes were seen. He presents to Ed today with c/o progressive dysphagia over past 2 years, more acutely worsened over past 3 months. C/o pain and sensation of food sticking in his chest. pain starts in the neck and goes down to epigastrium. Described burning sensation to dull achy pain. No c/o shortness of breath. He has had multiple Ed visits for similar chest pain recently. He underwent EGD last on April 26, [address] Trujillo which showed esophagitis in the lower third of esophagus consistent with radiation esophagitis.. CT chest performed today shows mild esophageal dilatation and increasing thickness of the distal esophagus and a small right pleural effusion. No c/o worsening with exertion- states movements makes pain better. No c/o altered bowel habits. no c/o elizabeth. No c/o orthopnea or PND> Review of Systems General: Reports: 10 or more systems reviewed and unremarkable except in HPI and below Const: Denies: fever, chills or body aches Eyes: Denies: change in vision, blurry vision or photophobia ENMT: Reports: hoarseness; Denies: throat pain, enlarged tonsils, painful swallowing or nasal congestion Card: Denies: chest pain, palpitations, irregular heart rhythm, edema, swelling of feet/ankles, lightheadedness, pre-syncope, shortness of breath on exertion or shortness of breath when lying down Resp: Denies: shortness of breath, productive cough, non-productive cough, wheezing, stridor, pain on inspiration, change in phlegm color, coughing up blood or chest congestion GI: Reports: difficulty swallowing and heartburn/indigestion; Denies: abdominal pain, nausea, vomiting, vomiting blood, coffee grounds in vomit, diarrhea, constipation, cramping, change in stool character, blood in stool or black tarry stool : Denies: flank pain, painful urination, urinary frequency, urinary urgency, urinary hesitancy or blood in urine Musc: Denies: neck pain, back pain, extremity pain, joint swelling, joint warmth or deformity Neuro: Denies: headache, numbness in extremities, weakness in extremities, changes in sensation, difficulty walking, frequent falls, dizziness, vertigo, behavioral changes, slurred speech or seizure-like activity Psych: Denies: anxiety, depression, suicidal ideation or homicidal ideation Endo: Denies: excessive urination, excessive thirst, tired all the time, cold intolerance or hot flashes Grant/Lymph: Denies: easy bruising or easy bleeding Medications/Allergies Allergies Allergy/AdvReac Type Severity Reaction Status Date / Time adhesive tape Allergy Unknown ALGY-Bliste Verified 03/28/19 12:05 r olanzapine Allergy Unknown Unknown Verified 03/28/19 12:05 PFSH Acute PFSH: Medical History ASHD (arteriosclerotic heart disease) Atrial fibrillation was taken off anticoagulation due to GI bleed, has IVC filter Piper's esophagus BPH (benign prostatic hyperplasia) Carcinoma of esophagus radiation esophagitis CHF (congestive heart failure), NYHA class I COPD (chronic obstructive pulmonary disease) CVA (cerebral vascular accident) Diabetes Dyslipidemia (high LDL; low HDL) Essential hypertension Gait disturbance Trip filter in place Lewy body dementia with behavioral disturbance Obesity NATALI (obstructive sleep apnea) Pulmonary emboli Surgical History Previous back surgery S/P angioplasty with stent S/P appendectomy S/P hernia repair S/P tonsillectomy S/P DIRECTOR HOSPICE OPERATIONS shunt due to hydrocephalus Family History Father CAD (coronary artery disease) Mother CAD (coronary artery disease) Hypertension Sister CAD (coronary artery disease) Diabetes Family/Other Stroke Social History Smoking and tobacco status: former smoker Quit status (tobacco): has quit using tobacco Alcohol intake: former Vitals/I&O/Wt Last Vital Signs Temp 98.5 F 03/31/19 23:05 Pulse 69 04/01/19 03:02 Resp 16 04/01/19 03:02 BP 99/54 04/01/19 03:02 Pulse Ox 99 04/01/19 03:02 03/31/19 03/31/19 04/01/19 14:59 22:59 06:59 Intake Total 1000 / 1000 Balance 1000 / 1000 Weight last 48 hrs Weight 95.254 kg Physical Exam Narrative: EXAM NARRATIVE: GEN: Awake, alert and oriented, no acute distress CVS: S1S2 N RS: CTA B/L Abd: Soft, nt/nd , bs+ DRIER TENDER NAPHTHALENE: no focal neuro deficits Data : 03/31/19 23:13 03/31/19 23:13 A&P Assessment and plan (1) Dysphagia: Status: Acute Code(s): R13.10 - Dysphagia, unspecified (2) Atypical chest pain: Status: Acute Code(s): R07.89 - Other chest pain Additional A&P Information Admit to observation Based on patient history and description of symptoms, appears most likely chest pain related to dysphagia. CT chest shows increased dilatation and increased thickening of lower esophagus which may be c/w stricture. Option of outpatient EGD was discussed with him but he reports significant distress especially over past 2 days and recurrent trips to the hospital for this reason and requests EGD evaluation for symptoms. Will consult Dr. Trujillo in morning (previous EGD perfromed by him) for procedure. Hold Eliquis for now Keep NPO for possible procedure. EKG with Afib, rate controlled, no acute ST-T changes Troponin with negative delta. Unlikely ACS based on history and above parameters Albuterol nebulization prn. h/o CHF: Currently appears euvolemic. Hold lasix for now given NPO status. DVT ppx: on eliquis Full code for procedures. on previous admissions was noted to be DNR, however currently states would like to be full code if undergoing EGD. Attestations Medical Necessity Statement*: anticipate <2 midnight for evaluation of dysphagia, possible EGD Coding Level of Care Code Acute Sports Medicine Trainer for Chg Fwd Diagnoses Dysphagia R13.10 Atypical chest pain R07.89
[2019-04-01] MEDS: sodium chloride 0.9% 1,000 ML 100 ML IV (04:45)
[2019-04-01] MEDS: cefTRIAXone 2,000 MG in sodium chloride 0.9% (plus) 50 ML 100 MG IV (04:45)
--- NOTE | 2019-04-01 05:08 | ECG_ITS ---
Measurements Intervals [place] Rate: 68 P: MT: 0 QRS: 32 QRSD: 94 T: 34 QT: 416 QTc: 443 ATRIAL FIBRILLATION LOW QRS VOLTAGE IN PRECORDIAL LEADS [QRS DEFLECTION < 1.0 mV IN CHEST LEADS] POSSIBLE RIGHT VENTRICULAR CONDUCTION DELAY [RSR (QR) IN V1/V2] NONSPECIFIC T-WAVE ABNORMALITY Compared to ECG 03/29/2019 06:31:19 Low QRS voltage now present Ventricular premature complex(es) no longer present Aberrant conduction of supraventricular beat(s) no longer present T-wave abnormality still present Electronically Signed On 04-01-2019 18:03:31 [employer] by Ashley Bethea M.D. [id number]
[2019-04-01 06:00] LABS: Troponin 5 6HR 34.19 ng/mL (0-15)
[2019-04-01] MEDS: tamsulosin 0.4 mg Capsule PO (09:05)
[2019-04-01] MEDS: pantoprazole DR 40 mg Tablet PO ×2 (09:05→18:38)
[2019-04-01] MEDS: risperiDONE 1 mg Tablet 0.5 MG PO ×2 (09:06→18:38)
[2019-04-01] MEDS: potassium chloride premix 40 MEQ/100 ML PREMIX 25 MEQ IV (09:06)
[2019-04-01] MEDS: morphine 4 mg/mL SDV 1 mL IVP (09:07)
[2019-04-01 14:49] LABS: Platelet Count 211 10^3/cmm (130-400)
--- NOTE | 2019-04-01 15:22 | PC.CHAP ---
Pastoral Care Encounter/Spiritual Assessment Type of Contact [] Declined quilt stuffer visit [] Patient/Family/Request visit [] Outpatient visit [x] Follow-up visit [] Physician referral [] Code/Alert [] Routine visit [] Staff referral [] Actively dying [] Patient sleeping [] Family support [] [] Out of room [] Palliative care [] [] Receiving care in room [] Pre-surgical visit [] Trauma [] Long length of stay [] ICU visit [] Other: Relational/Emotional Strength [] Patient feels connected with others/family/visitors/staff [] Distress [] Loneliness/isolation [] Abandonment Spirituality of Patient [] Person of Tanja [] Attends Yazidi of their Tanja [] Believes in Prayer [] Reads Bible or Restoration materials [] There are Spiritual issues to be addressed Area Cleaner Interventions [] Prayer [] Active listening [] Non-anxious presence [] Spiritual/emotional support [] Crisis/trauma care [] Spiritual counseling [] Bereavement support [] Provided bereavement packet [] Provided Bible/devotional materials [] Provided toy/stuffed animal, coloring book to patient or family member [] Provided Communion [] Anointing/[place] [] Salvation [] Completed spiritual assessment [] Other: Impact on Illness or Injury [] Angry [] Fearful [] Anxious [] Often cries [] Exhaustion [] Unable to work [] Unable to attend spiritism [] Unable to walk/stand [] Unable to read [] Unable to drive [] Unable to eat/drink [] Unable to sleep [] Unable to be with family [] Patient intubated [] Other: Summary Area Cleaner attempted followup visit, but Patient sleeping. quilt stuffer request follow up from on-coming quilt stuffer Time spent with patient
[2019-04-01] MEDS: heparin drip 25,000 UNIT/500 ML PREMIX 26 UNIT IV (15:31)
[2019-04-01] MEDS: heparin 5,000 unit/mL INJ 1 mL IV (15:38)
--- NOTE | 2019-04-01 18:50 | XR_ITS ---
WS: [id number] XR chest 1V portable [id number] REASON FOR EXAM: possible fluid overload FINDINGS: The heart is borderline enlarged. Similar to the previous exam March 31, 2019. The shunt tube is seen extending from the left side of the brain to the abdomen through the chest. On today's exam there is mild increased interstitial markings suggesting mild early edema. There is no pneumonia or pneumothorax. XR/XR chest 1V portable [id number] IMPRESSION: Borderline cardiomegaly There appears to be mild pulmonary edema in both lung hathaway. There is a shunt tube in good position on the left.
--- NOTE | 2019-04-01 20:11 | P.PN_ITS ---
Subjective Subjective: Interval history: He denies current chest pain. He reports he was having some earlier after eating, although that has resolved. Vitals/I&O/Wt Last Vital Signs Temp 98.5 F 04/01/19 16:00 Pulse 82 04/01/19 18:30 Resp 22 H 04/01/19 18:30 BP 131/69 04/01/19 16:00 Pulse Ox 96 04/01/19 18:30 04/01/19 04/01/19 04/01/19 06:59 14:59 22:59 Intake Total 1148.334 / 6405.227 2408.5 / 1477.5 480 / 1957.5 Output Total 0 / 0 250 / 250 400 / 650 Balance 1148.334 / 6116.484 2659.5 / 1227.5 80 / 1307.5 Weight last 48 hrs Weight 95.254 kg Physical Exam Const: COMMON NORMALS: no apparent distress OTHER: He is somewhat hard of hearing, and it takes him a while to respond, however, he does converse and give a review of systems. HENMT: COMMON NORMALS: oropharynx normal Neck/C-Spine: COMMON NORMALS: no JVD Resp: COMMON NORMALS: normal respiratory effort and clear to auscultation bilaterally AUSCULTATION: clear to auscultation bilaterally Cardio: COMMON NORMALS: no JVD, regular rhythm, S1 normal heart sound, S2 normal heart sound and no murmurs RHYTHM: regular rhythm HEART SOUNDS: S1 normal and S2 normal GI: COMMON NORMALS: normal to inspection, nondistended, normoactive bowel sounds, soft to palpation and non-tender PALPATION: Yes soft Extremity: COMMON NORMALS: no joint enlargement and no pedal edema Neuro: COMMON NORMALS: moves all extremities Skin: COMMON NORMALS: no rashes or lesions noted GENERAL SKIN EXAM: no rashes or lesions noted Data : 04/01/19 14:18 03/31/19 23:13 A&P Assessment and plan (1) Dysphagia: Currently Eliquis is being held. Bridging ordered with heparin which will be held tomorrow morning prior to his endoscopy. Status: Acute Code(s): R13.10 - Dysphagia, unspecified (2) Atypical chest pain: Secondary to dysphagia. No pain currently. Status: Acute Code(s): R07.89 - Other chest pain Additional A&P Information Atrial fibrillation History of DVT and PE Attestations Medical Necessity Statement*: Requiring admission of over 2 midnights for assessment management of severe dysphagia, requiring bridging anticoagulation with history of DVT, PE while off Eliquis. 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
[2019-04-01] MEDS: budesonide 0.5 mg/2 mL Neb INHALATION (20:41)
[2019-04-02] VITALS (13 sets, daily range): BP systolic 124–182; BP diastolic 64–83; PULSE 59–85; RESP 16–24; TEMP 36.6–37.1; O2SAT 92–100
[2019-04-02 03:15] LABS: Anion Gap 15.7 (5-19); Blood Urea Nitrogen 8 mg/dL (8-23); Calcium 8.9 mg/dL (8.5-10.5); Carbon Dioxide 22 mmol/L (22-29); Chloride 105 mmol/L (98-107); Glucose 101 mg/dL (65-115); Osmolality Calculated 284 mOsm/kg (285-295); Potassium 3.7 mmol/L (3.5-5.1); Sodium 139 mmol/L (136-145)
[2019-04-02 03:27] LABS: Basophils % 0.5 %; Eosinophils # 0.4 10^3/uL (0.0-0.8); Eosinophils % 8.2 %; Hematocrit 33.4 % (42.0-52.0); Hemoglobin 10.3 g/dL (11.7-16.6); Lymphocytes # 0.9 10^3/uL (0.8-4.8); Lymphocytes % 20.9 %; Mean Corpuscular HGB Conc 30.8 g/dL (30.0-36.0); Mean Corpuscular Hemoglobin 25.9 pg (28.0-34.0); Mean Corpuscular Volume 83.9 fL (80-94); Mean Platelet Volume 11.1 fL (7.4-10.4); Monocytes # 0.5 10^3/uL (0.2-0.9); Monocytes % 10.4 %; Neutrophils # 2.6 10^3/uL (1.8-7.7); Neutrophils % 59.8 %; Nucleated Red Blood Cells % 0 %; Platelet Count 192 10^3/cmm (130-400); Red Blood Count 3.98 10^6/uL (4.1-5.3); Red Cell Distribution Width 15.4 % (12.1-15.1); White Blood Count 4.4 10^3/uL (4.0-10.0)
[2019-04-02] MEDS: budesonide 0.5 mg/2 mL Neb INHALATION ×2 (09:27→20:46)
--- NOTE | 2019-04-02 11:54 | PC.CHAP ---
Pastoral Care Encounter/Spiritual Assessment Type of Contact [] Declined advertising sales assistant visit [] Patient/Family/Request visit [] Outpatient visit [] Follow-up visit [] Physician referral [] Code/Alert [a] Routine visit [] Staff referral [] Actively dying [] Patient sleeping [] Family support [] [] Out of room [] Palliative care [] [] Receiving care in room [] Pre-surgical visit [] Trauma [] Long length of stay [] ICU visit [] Other: Relational/Emotional Strength [] Patient feels connected with others/family/visitors/staff [] Distress [] Loneliness/isolation [] Abandonment Spirituality of Patient [] Person of Tanja [] Attends Christian of their Tanja [] Believes in Prayer [] Reads Bible or Episcopalian materials [] There are Spiritual issues to be addressed Inspector [employer] Interventions [a] Prayer [] Active listening [a] Non-anxious presence [] Spiritual/emotional support [] Crisis/trauma care [] Spiritual counseling [] Bereavement support [] Provided bereavement packet [] Provided Bible/devotional materials [] Provided toy/stuffed animal, coloring book to patient or family member [] Provided Communion [] Anointing/[place] [] Salvation [x] Completed spiritual assessment [] Other: Impact on Illness or Injury [] Angry [] Fearful [] Anxious [] Often cries [] Exhaustion [] Unable to work [] Unable to attend pentecostal [] Unable to walk/stand [] Unable to read [] Unable to drive [] Unable to eat/drink [] Unable to sleep [] Unable to be with family [] Patient intubated [] Other: Summary patient waiting for doc Time spent with patient 10 min one staff
--- NOTE | 2019-04-02 12:46 | P.ANESASSM_ITS ---
Pre-Anesthetic Assessment Pre-Anesthetic Assessment: Height/Weight: Height 1.85 m Weight 95.254 kg Temp Pulse Resp BP Pulse Ox 98.1 F 75 18 155/78 100 04/02/19 11:52 04/02/19 11:52 04/02/19 11:52 04/02/19 11:52 04/02/19 11:52 Preop Diagnosis: Dysphagia Proposed Procedure: Operation Date: 04/02/19 11:30 Proposed Procedures p EGD(Not Applicable) - Alcon Villar MD Familial anesthetic complications: none Was Beta Gopi taken within 24 hours: N/A Last intake: Intake Last Liquid Date 04/01/19 Last Liquid Time 23:00 Last Solid Date 04/01/19 Last Solid Time 20:00 Last Intake: 23:00 Social: Social History: Tobacco and No alcohol Packs per day: 1 Pack years: stop 20yrs ago Exam: Pre-Anes Outpt Exam: alert, clear to auscultation bilaterally and regular rate & rhythm Additional Exam Findings (including area of procedure): pt alert to person yet not place and time Airway: Submandibular: WNL Cervical ROM: WNL MP: 1 Dentition: False Pulmonary: Pulmonary: COPD, PALMER and SOB CV/HEM: CV/HEM: Afib, Arrythmia, CAD, DVT, HTN and AL : : None reported Hepatic: Hepatic: None reported GI: GI: GERD Comments: Hx barrettrica Metabolic: Metabolic: None reported Musc/skel: Musc/skel: OA/DJD Neuropsych: Neuropsych: Bipolar, CVA and SAUCEDA Anesthetic Plan: ASA status: 3 Anesthesia: Anesthesia Evaluation and MAC Risk of > 500 ml blood loss (7ml/kg in children): No Meds/Allergies Current Medications: Current Medications Generic Name Dose Route Start Last Admin Trade Name Freq PRN Reason Stop Dose Admin Albuterol Sulfate 2.5 mg 04/01/19 20:00 04/02/19 09:27 Albuterol INHALATION 2.5 mg Q4H.RESPIRATORY P RN Administration Shortness of calvin th Budesonide 0.5 mg 04/01/19 20:00 04/02/19 09:27 Pulmicort INHALATION 0.5 mg BID.RESPIRATORY S CH Administration Heparin Sodium (Be ef Lung) 0 unit 04/01/19 13:21 04/01/19 15:38 Heparin IV 4,700 unit PRN PRN Administration Heparin weight-ba se protocol Protocol Heparin Sodium/Sod ium Chloride 25,000 unit in 50 0 mls @ 0 mls/hr 04/01/19 13:30 04/01/19 15:31 Heparin Drip IV 13.65 unit/kg/hr .Q0M CULLEN 26 mls/hr Administration Protocol Per Protocol Morphine Sulfate 4 mg 04/01/19 04:05 04/01/19 09:07 Morphine IVP 4 mg Q4H PRN Administration SEVERE PAIN Pantoprazole Sodiu m 40 mg 04/01/19 09:00 04/01/19 18:38 Protonix PO 40 mg BID CULLEN Administration Risperidone 0.5 mg 04/01/19 09:00 04/01/19 18:38 Risperdal PO 0.5 mg BID CULLEN Administration Tamsulosin HCl 0.4 mg 04/01/19 09:00 04/01/19 09:05 Flomax PO 0.4 mg DAILY CULLEN Administration PFSH Anesthesia PFSH: Medical History (Updated 04/01/19 @ 05:42 by Radha Sepulveda MD) ASHD (arteriosclerotic heart disease) Atrial fibrillation was taken off anticoagulation due to GI bleed, has IVC filter Piper's esophagus BPH (benign prostatic hyperplasia) Carcinoma of esophagus radiation esophagitis CHF (congestive heart failure), NYHA class I COPD (chronic obstructive pulmonary disease) CVA (cerebral vascular accident) Diabetes Dyslipidemia (high LDL; low HDL) Dysphagia Essential hypertension Gait disturbance Trip filter in place Lewy body dementia with behavioral disturbance Obesity NATALI (obstructive sleep apnea) Pulmonary emboli Surgical History Previous back surgery S/P angioplasty with stent S/P appendectomy S/P hernia repair S/P tonsillectomy S/P NECKTIE STITCHER shunt due to hydrocephalus Family History Father CAD (coronary artery disease) Mother CAD (coronary artery disease) Hypertension Sister CAD (coronary artery disease) Diabetes Family/Other Stroke Social History Smoking and tobacco status: former smoker Quit status (tobacco): has quit using tobacco Alcohol intake: former Data Anesthesia CBC & Chem 7: 04/02/19 02:00 04/02/19 02:00 Other Labs: Laboratory Results - last 48 hr 03/31/19 03/31/19 03/31/19 23:13 23:13 23:13 WBC 7.0 RBC 4.15 Hgb 10.8 L Hct 34.5 L MCV 83.1 MCH 26.0 L MCHC 31.3 RDW 15.3 H Plt Count 232 MPV 11.0 H Neut % (Auto) 69.3 Lymph % (Auto) 16.7 [place] % (Auto) 8.2 Eos % (Auto) 5.3 Baso % (Auto) 0.4 Neut # (Auto) 4.8 Lymph # (Auto) 1.2 [place] # (Auto) 0.6 Eos # (Auto) 0.4 Baso # (Auto) 0.0 Nucleated RBC % (auto) 0 Nucleated RBCs # 0.0 APTT Sodium 138 Potassium 3.4 L Chloride 102 Carbon Dioxide 22 Anion Gap 17.4 BUN 13 Creatinine 1.0 Glucose 125 H Calculated Osmolality Calcium 9.4 Total Bilirubin 0.2 AST 11 ALT 9 Alkaline Phosphatase 91 Troponin I 6 Hour Troponin I Hi Sens Del Troponin T Baseline 42 H Troponin T 120 Minute Delta Troponin T NT-Pro-B Natriuret Pep 686 H Total Protein 6.6 Albumin 3.7 Globulin 2.9 Lipase 29 04/01/19 04/01/19 04/01/19 01:13 05:20 14:18 WBC RBC Hgb Hct MCV MCH MCHC RDW Plt Count 211 MPV Neut % (Auto) Lymph % (Auto) [place] % (Auto) Eos % (Auto) Baso % (Auto) Neut # (Auto) Lymph # (Auto) [place] # (Auto) Eos # (Auto) Baso # (Auto) Nucleated RBC % (auto) Nucleated RBCs # APTT Sodium Potassium Chloride Carbon Dioxide Anion Gap BUN Creatinine Glucose Calculated Osmolality Calcium Total Bilirubin AST ALT Alkaline Phosphatase Troponin I 6 Hour 34.19 H Troponin I Hi Sens Del -7.81 L Troponin T Baseline Troponin T 120 Minute 37.39 H Delta Troponin T -4.61 L NT-Pro-B Natriuret Pep Total Protein Albumin Globulin Lipase 04/01/19 04/02/19 04/02/19 21:40 02:00 02:00 WBC 4.4 RBC 3.98 L Hgb 10.3 L Hct 33.4 L MCV 83.9 MCH 25.9 L MCHC 30.8 RDW 15.4 H Plt Count 192 MPV 11.1 H Neut % (Auto) 59.8 Lymph % (Auto) 20.9 [place] % (Auto) 10.4 Eos % (Auto) 8.2 Baso % (Auto) 0.5 Neut # (Auto) 2.6 Lymph # (Auto) 0.9 [place] # (Auto) 0.5 Eos # (Auto) 0.4 Baso # (Auto) 0.0 Nucleated RBC % (auto) 0 Nucleated RBCs # 0.0 APTT 80.0 H Sodium 139 Potassium 3.7 Chloride 105 Carbon Dioxide 22 Anion Gap 15.7 BUN 8 Creatinine 0.9 Glucose 101 Calculated Osmolality 284 L Calcium 8.9 Total Bilirubin AST ALT Alkaline Phosphatase Troponin I 6 Hour Troponin I Hi Sens Del Troponin T Baseline Troponin T 120 Minute Delta Troponin T NT-Pro-B Natriuret Pep Total Protein Albumin Globulin Lipase Cardiac Studies: No Data to Display
--- NOTE | 2019-04-02 13:28 | P.CONIM_ITS ---
Providers/Reason For Consult Consulting Physican/Specialty*: Dr. Sepulveda Reason for Consult*: Dysphagia Attending Physician: Davon Jon History of Present Illness History of Present Illness Willie Ram is a 78 year old male with dementia who presented to the ER with worsening dysphagia over the last couple of months. Patient has known distal esophageal adenocarcinoma status post chemoradiation. He has multiple comorbidities and is currently on Eliquis. Patient is bit confused and therefore I cannot obtain much information and most of the information has been gleaned from the chart Review of Systems General: Reports: ROS unobtainable due to mental status Meds/Allergies Home Medications and Allergies Home Medications Medication Instructions Recorded Confirmed Type albuterol sulfate 2.5 mg/0.5 mL 10 mg INHALATION Q4H PRN 02/18/19 03/29/19 History solution for nebulization ascorbate calcium (vitamin C) 500 500 mg PO DAILY tab 02/18/19 03/29/19 History mg tablet donepezil 10 mg tablet 10 mg PO .AM tab 02/18/19 03/29/19 History esomeprazole magnesium 40 mg 40 mg PO DAILY cap 02/18/19 03/29/19 History capsule,delayed release melatonin 5 mg capsule mg PO .HS cap 02/18/19 03/28/19 History memantine 10 mg tablet 10 mg PO BID 02/18/19 03/29/19 History nitroglycerin 0.4 mg sublingual 0.4 mg SUBLINGUAL Q5M PRN 02/18/19 03/29/19 History tablet risperidone 0.5 mg tablet 0.5 mg PO BID 02/18/19 03/29/19 History tamsulosin 0.4 mg capsule 0.4 mg PO DAILY cap 02/18/19 03/29/19 History vitamin B complex 1 tab PO QAM 02/18/19 03/29/19 History Allergies Allergy/AdvReac Type Severity Reaction Status Date / Time adhesive tape Allergy Unknown ALGY-Bliste Verified 03/28/19 12:05 r olanzapine Allergy Unknown Unknown Verified 03/28/19 12:05 Current Medications Current Medications Generic Name Dose Route Start Last Admin Trade Name Freq PRN Reason Stop Dose Admin Albuterol Sulfate 2.5 mg 04/01/19 20:00 04/02/19 09:27 Albuterol INHALATION 2.5 mg Q4H.RESPIRATORY PRN Administration Shortness of breath Budesonide 0.5 mg 04/01/19 20:00 04/02/19 09:27 Pulmicort INHALATION 0.5 mg BID.RESPIRATORY CULLEN Administration Heparin Sodium (Beef Lung) 0 unit 04/01/19 13:21 04/01/19 15:38 Heparin IV 4,700 unit PRN PRN Administration Heparin weight-base protocol Protocol Heparin Sodium/Sodium Chloride 25,000 unit in 500 mls @ 0 mls/hr 04/01/19 13:30 04/01/19 15:31 Heparin Drip IV 13.65 unit/kg/hr .Q0M CULLEN 26 mls/hr Administration Protocol Per Protocol Morphine Sulfate 4 mg 04/01/19 04:05 04/01/19 09:07 Morphine IVP 4 mg Q4H PRN Administration SEVERE PAIN Pantoprazole Sodium 40 mg 04/01/19 09:00 04/01/19 18:38 Protonix PO 40 mg BID CULLEN Administration Risperidone 0.5 mg 04/01/19 09:00 04/01/19 18:38 Risperdal PO 0.5 mg BID CULLEN Administration Tamsulosin HCl 0.4 mg 04/01/19 09:00 04/01/19 09:05 Flomax PO 0.4 mg DAILY CULLEN Administration PFSH Acute PFSH: Medical History ASHD (arteriosclerotic heart disease) Atrial fibrillation was taken off anticoagulation due to GI bleed, has IVC filter Piper's esophagus BPH (benign prostatic hyperplasia) Carcinoma of esophagus radiation esophagitis CHF (congestive heart failure), NYHA class I COPD (chronic obstructive pulmonary disease) CVA (cerebral vascular accident) Diabetes Dyslipidemia (high LDL; low HDL) Essential hypertension Gait disturbance Lewy body dementia with behavioral disturbance NATALI (obstructive sleep apnea) Pulmonary emboli Surgical History Trip filter in place Previous back surgery S/P angioplasty with stent S/P appendectomy S/P hernia repair S/P tonsillectomy S/P 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 Output Total 400 / 650 250 / 250 Balance 140 / 1367.5 0 / 1367.5 -250 / -250 Weight last 48 hrs Weight 210 lb Physical Exam Narrative: EXAM NARRATIVE: HEENT: Normocephalic Eye: Sclera /conjunctiva normal Respiratory and chest: Bilateral clear breath sounds on auscultation Cardiovascular: Normal S1 and S2 heart sounds Abdomen: Soft to palpation Neurological: Oriented to place person and time Skin: Intact, no lesions appreciated on gross exam A&P Assessment and plan (1) Dysphagia: Patient has been off Eliquis for 48 hours Plan for EGD with possible dilation under MAC today Status: Acute Code(s): R13.10 - Dysphagia, unspecified Coding Level of Care Code Acute Assistant Women'S Basketball 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
--- NOTE | 2019-04-02 14:20 | P.PN_ITS ---
Subjective Subjective: Interval history: He is doing well. Having some issues eating his Jell-O, but is enjoying it as it is his first meal. Denies any pain. Vitals/I&O/Wt Last Vital Signs Temp 98.5 F 04/02/19 13:55 Pulse 75 04/02/19 13:55 Resp 16 04/02/19 13:55 BP 124/64 04/02/19 13:55 Pulse Ox 96 04/02/19 13:55 04/01/19 04/02/19 04/02/19 22:59 06:59 14:59 Intake Total 540 / 2016.5 2016. Output Total 400 / 650 250 / 250 Balance 140 / 1367.5 0 / 1367.5 -250 / -250 Weight last 48 hrs Weight 95.254 kg Physical Exam Const: COMMON NORMALS: no apparent distress OTHER: He is somewhat hard of hearing, and it takes him a while to respond, however, he does converse and give a review of systems. HENMT: COMMON NORMALS: oropharynx normal Neck/C-Spine: COMMON NORMALS: no JVD Resp: COMMON NORMALS: normal respiratory effort and clear to auscultation bilaterally AUSCULTATION: clear to auscultation bilaterally Cardio: COMMON NORMALS: no JVD, regular rhythm, S1 normal heart sound, S2 normal heart sound and no murmurs RHYTHM: regular rhythm HEART SOUNDS: S1 normal and S2 normal GI: COMMON NORMALS: normal to inspection, nondistended, normoactive bowel sounds, soft to palpation and non-tender PALPATION: Yes soft Extremity: COMMON NORMALS: no joint enlargement and no pedal edema Neuro: COMMON NORMALS: moves all extremities Skin: COMMON NORMALS: no rashes or lesions noted GENERAL SKIN EXAM: no rashes or lesions noted Data : 04/02/19 02:00 04/02/19 02:00 A&P Assessment and plan (1) Dysphagia: No stricture noted on EGD, however, had diffuse inflammation, and several biopsies were taken from few areas of concern and sent for pathology. Esophagitis. His anticoagulation is to be resumed at 8 PM tonight per schedule surgery. Due to a number of biopsies we will monitor him overnight and reassess blood count in the morning. If doing well may resume Eliquis and return home. Discussed with his daughter was agreeable with plan. Continue PPI. Sucralfate was added. Status: Acute Code(s): R13.10 - Dysphagia, unspecified (2) Atypical chest pain: Secondary to dysphagia. No pain currently. Status: Acute Code(s): R07.89 - Other chest pain Additional A&P Information Atrial fibrillation History of DVT and PE Attestations Medical Necessity Statement*: Continue admission for assessment and management of esophagitis, with a number of biopsies, monitoring while resuming anticoagulation. Coding Level of Care Code Acute Game Engineer for [facility] Fwd Diagnoses Dysphagia R13.10 Atypical chest pain R07.89
[2019-04-02] MEDS: pantoprazole DR 40 mg Tablet PO (17:04)
[2019-04-02] MEDS: sucralfate 1 gm/10 mL Oral Liq UDC PO ×2 (17:04→20:41)
[2019-04-02] MEDS: risperiDONE 1 mg Tablet 0.5 MG PO (17:04)
[2019-04-02] MEDS: heparin drip 25,000 UNIT/500 ML PREMIX 24 UNIT IV (20:40)
[2019-04-03] VITALS (9 sets, daily range): BP systolic 127–153; BP diastolic 69–93; PULSE 58–86; RESP 18–24; TEMP 36.5–36.8; O2SAT 96–98
[2019-04-03 03:14] LABS: Partial Thromboplastin Time 51.2 SECONDS (23.9-36.7)
[2019-04-03 03:24] LABS: Basophils % 0.4 %; Eosinophils # 0.4 10^3/uL (0.0-0.8); Eosinophils % 7.6 %; Hematocrit 33.5 % (42.0-52.0); Hemoglobin 10.7 g/dL (11.7-16.6); Lymphocytes # 0.8 10^3/uL (0.8-4.8); Lymphocytes % 14.4 %; Mean Corpuscular HGB Conc 31.9 g/dL (30.0-36.0); Mean Corpuscular Hemoglobin 26.5 pg (28.0-34.0); Mean Corpuscular Volume 82.9 fL (80-94); Mean Platelet Volume 10.6 fL (7.4-10.4); Monocytes # 0.4 10^3/uL (0.2-0.9); Monocytes % 7.7 %; Neutrophils # 3.8 10^3/uL (1.8-7.7); Neutrophils % 69.7 %; Nucleated Red Blood Cells % 0 %; Platelet Count 207 10^3/cmm (130-400); Red Blood Count 4.04 10^6/uL (4.1-5.3); Red Cell Distribution Width 15.3 % (12.1-15.1); White Blood Count 5.4 10^3/uL (4.0-10.0)
[2019-04-03] MEDS: heparin 5,000 unit/mL INJ 1 mL IV (03:32)
[2019-04-03] MEDS: budesonide 0.5 mg/2 mL Neb INHALATION (08:11)
[2019-04-03] MEDS: risperiDONE 1 mg Tablet 0.5 MG PO (10:32)
[2019-04-03] MEDS: sucralfate 1 gm/10 mL Oral Liq UDC PO (10:32)
--- NOTE | 2019-04-03 10:33 | ANE.PACU2 ---
 Inpatient post-anesthesia follow up: Airway intact: Yes Vital signs: Temperature 97.7 F Pulse Rate [Right Radial] 69 Pulse Rate 70 Respiratory Rate 18 Blood Pressure [Ri ght Arm] 111/59 Blood Pressure 153/93 Pulse Oximetry 97 Oxygen Delivery Me thod [ Room Air Current Rate & Del emily] Oxygen Delivery Me thod Room Air Oxygen Flow Rate 2.0 Fraction of Inspir ed Oxygen Hydration adequate: Yes Nausea and vomiting: No Mental status: Baseline
[2019-04-03] MEDS: pantoprazole DR 40 mg Tablet PO (10:34)
[2019-04-03] MEDS: tamsulosin 0.4 mg Capsule PO (10:34)
[2019-04-03] MEDS: apixaban 5 mg Tablet PO (12:25)
--- NOTE | 2019-04-03 13:57 | PM.DCS ---
Discharge Providers Date of Admission: 04/01/19 20:14 Date of Discharge: April 03, 2019 Attending Provider at Admission: Radha Sepulveda MD Attending Provider at Discharge: Davon Jon Diagnoses at Discharge Discharge Diagnosis (1) Dysphagia: Status: Acute (2) Atypical chest pain: Status: Acute Reason for Visit Reason for Visit: Reason For Visit: CP Hospital Course Hospital Course: This very pleasant 78-year-old gentleman with history of Lewy body dementia, history of DVT and PE, atrial fibrillation, on chronic anticoagulation, COPD, chronic CHF, was admitted due to chest discomfort, with atypical chest pain with complaint of food sticking in his chest, progressive dysphagia over the past 2 years. His cardiac work-up was not suggestive of cardiac ischemia. Suspicion for PE was low given no other symptoms, and chronic anticoagulation. With symptoms of dysphagia he underwent evaluation by EGD. No stricture was noted, however, he was found to have severe esophagitis, with several areas somewhat concerning for possible metaplasia which were biopsied. Pathology results are pending and will need to be followed up. He was started on sucralfate, and PPI dose was increased to twice daily. He remains asymptomatic. Anticoagulation was resumed, and his blood count remained stable overnight. He is tolerating oral intake. He will follow-up with surgery in office in 2 weeks. Physical Exam Const: COMMON NORMALS: no apparent distress OTHER: He is somewhat hard of hearing, and it takes him a while to respond, however, he does converse and give a review of systems. HENMT: COMMON NORMALS: oropharynx normal Neck/C-Spine: COMMON NORMALS: no JVD Resp: COMMON NORMALS: normal respiratory effort and clear to auscultation bilaterally AUSCULTATION: clear to auscultation bilaterally Cardio: COMMON NORMALS: no JVD, regular rhythm, S1 normal heart sound, S2 normal heart sound and no murmurs RHYTHM: regular rhythm HEART SOUNDS: S1 normal and S2 normal GI: COMMON NORMALS: normal to inspection, nondistended, normoactive bowel sounds, soft to palpation and non-tender PALPATION: Yes soft Extremity: COMMON NORMALS: no joint enlargement and no pedal edema Neuro: COMMON NORMALS: moves all extremities Skin: COMMON NORMALS: no rashes or lesions noted GENERAL SKIN EXAM: no rashes or lesions noted Discharge Data Data Completed and Pending: Completed Studies During Hospitalization Category Date Time Status CT chest w con* 7 1260 Urgent Cat Scan 03/31/19 23:53 Completed XR chest 1V corinne ble [id number] Stat Exams 03/31/19 23:08 Completed XR chest 1V corinne ble [id number] Stat Exams 04/01/19 18:50 Completed Pending at discharge Category Date Time Status Complete Blood Co unt w/Auto AM LABS Lab 04/04/19 04:00 Ordered Pathology: Surgic al [PTH] Routine Pth 04/02/19 13:49 Received Labs from last 24 hours 04/03/19 04/03/19 04/03/19 09:42 02:45 02:45 WBC 5.4 RBC 4.04 L Hgb 10.7 L Hct 33.5 L MCV 82.9 MCH 26.5 L MCHC 31.9 RDW 15.3 H Plt Count 207 MPV 10.6 H Neut % (Auto) 69.7 Lymph % (Auto) 14.4 Mitchell % (Auto) 7.7 Eos % (Auto) 7.6 Baso % (Auto) 0.4 Neut # (Auto) 3.8 Lymph # (Auto) 0.8 Mitchell # (Auto) 0.4 Eos # (Auto) 0.4 Baso # (Auto) 0.0 Nucleated RBC % (a uto) 0 Nucleated RBCs # 0.0 APTT 63.0 H 51.2 H Vitals: Last Vital Signs Temp 97.8 F 04/03/19 12:00 Pulse 58 L 04/03/19 12:00 Resp 18 04/03/19 12:00 BP 127/69 04/03/19 12:00 Pulse Ox 96 04/03/19 12:00 Discharge Plan Discharge Patient Disposition: Xfer Other Condition: Stable Prescriptions: New sucralfate 100 mg/mL Suspension 1 g PO AC&BEDTIME Qty: 420 RF: 0 Continued nitroglycerin [Nitrostat] 0.4 mg tablet, sublingual 0.4 mg SUBLINGUAL Q5M PRN (Reason: Chest Pain) RF: 0 tamsulosin [Flomax] 0.4 mg capsule 0.4 mg PO DAILY RF: 0 albuterol sulfate 2.5 mg/0.5 mL solution for nebulization 10 mg INHALATION Q4H PRN (Reason: Shortness of breathe) RF: 0 risperidone 0.5 mg tablet 0.5 mg PO BID RF: 0 donepezil [Aricept] 10 mg tablet 10 mg PO .AM RF: 0 memantine [Namenda] 10 mg tablet 10 mg PO BID RF: 0 melatonin 5 mg capsule PO .HS RF: 0 vitamin B complex [B Complex-Vitamin B12] Tablet 1 tab PO QAM RF: 0 ascorbate calcium (vitamin C) 500 mg tablet 500 mg PO DAILY RF: 0 Eliquis 5 mg tablet 5 mg PO BID 90 Days Qty: 180 RF: 1 furosemide 40 mg tablet 40 mg PO BID Qty: 180 RF: 1 potassium chloride 20 mEq tablet extended release 20 meq PO DAILY 90 Days Qty: 90 RF: 1 Changed esomeprazole magnesium [Nexium] 40 mg capsule,delayed release(DR/EC) 40 mg PO BID Qty: 60 RF: 0 Discharge Orders: Discharge Order (Routine); Ordered 04/03/19 Ordered By: Davon Jon Other Ambulatory Orders: Complete Blood Count w/Auto (Routine) Timeframe: 4 Days Location: Determined by Patient Ordered By: Daovn Jon Referrals: Alcon Villar MD [Physician] - 2 weeks Jimmy Stubbs MD [Family Provider] - 4-7 days (Esophagitis, esophageal biopsies) Discharge Diet: Cardiac and GI Soft Discharge Activity: Resume usual activity Patient Instructions: Chest Pain - Noncardiac, GI Discharge Instructions Activity Restrictions/Additional Instructions: Esophageal biopsies results are pending. Please follow-up with surgery in office. If you experience any bleeding, blood in stool, other abnormal symptoms including vomiting blood, severe chest or abdominal pain, etc., please seek medical attention without delay. Please avoid any NSAIDs, like ibuprofen, Aleve, etc. Please avoid eating 2 hours prior to going to sleep. Please eat in upright position only. Avoid mint, chocolate, coffee, spicy food, alcohol to reduce chances of heartburn. Discharge Attestations Time Spent in Discharge Care*: greater than 30 min Quality Metrics Clinical Quality Measures During this hospital stay, did patient experience: None Coding Level of Care Code Acute Director Clinical Operations for Chg Fwd Diagnoses Dysphagia R13.10 Atypical chest pain R07.89
== END 2019-04-03 15:47 | disposition home or self-care (01) | DRG 392 ==
LOC: ER 23:24 → MEDSURG 04-01 02:35
PROVIDERS: Surgery; Admitting Provider Student in an Organized Health Care Education/Training Program; Emergency Provider Emergency Medicine; Family Provider Family Medicine; Visit Provider Internal Medicine
PROC: 0DJ08ZZ Inspection of Upper Intestinal Tract, Via Natural or Artificial Opening Endoscopic (ICD-10-PCS; CPT 43235; principal; 2019-04-02 11:30)
DX: K20.9 Esophagitis, unspecified (principal); I50.30 Unspecified diastolic (congestive) heart failure; R13.10 Dysphagia, unspecified; F03.90 Unspecified dementia, unspecified severity, without behavioral disturbance, psychotic disturbance, mood disturbance, and anxiety; I48.91 Unspecified atrial fibrillation; E66.9 Obesity, unspecified; I25.10 Atherosclerotic heart disease of native coronary artery without angina pectoris; R07.89 Other chest pain; Z66 Do not resuscitate; Z68.27 Body mass index [BMI] 27.0-27.9, adult; Z87.891 Personal history of nicotine dependence; Z86.711 Personal history of pulmonary embolism; Z79.01 Long term (current) use of anticoagulants; Z79.899 Other long term (current) drug therapy; Z79.51 Long term (current) use of inhaled steroids
CPT/HCPCS: 12345; 36415; 43239; 71045; 71260; 80048; 80053; 83690; 83880; 84484; 85025; 85049; 85730; 88305; 93005; 94640; 96375; 99283; G0378; J0696; J1644; J2270; J2704; J3480; J7030; J7611; J7626; Q9967

== ENCOUNTER 2019-04-06 11:39 | Emergency (ER) | payer MEDICARE, MEDICAID, SELFPAY ==
[2019-04-06 11:40] VITALS: BP 142/82; PULSE 82; RESP 16; TEMP 36.4; O2SAT 97; BMI 25.9
--- NOTE | 2019-04-06 11:40 | ED_ITS ---
Entered by Tonja Lim, acting as scribe for Leola Sequeira MD HPI - General Adult General: Chief complaint: Chest Pain Stated complaint: CHEST PAIN Time Seen by Provider: 04/06/19 11:41 History of Present Illness: HPI narrative: 78 yo male presents with chest pain. Pt states that he has had this chest pain since last night. Pt states that the pain is taking his breath away. pt states that he can't take a deep breath in. MD complaint: chest pain. Onset (ago): day(s) (1) Location: chest Radiation: non-radiation Severity: moderate Quality: sharp and dull Pain Consistency: constant Relieving factors: none Exacerbating factors: none Associated symptoms: Reports chest pain and dyspnea; Deny headache(s), nausea, rash or vomiting Review of Systems Const: Denies: fever, chills, body aches or change in appetite Eyes: Denies: blurry vision or eye discomfort ENMT: Denies: throat pain or dental pain Card: Reports: chest pain Resp: Reports: shortness of breath GI: Denies: abdominal pain, nausea, vomiting or diarrhea : Denies: painful urination Musc: Denies: neck pain or back pain Skin/Breast: Denies: rash Neuro: Denies: headache Psych: Denies: depression Grant/Lymph: Denies: easy bruising All/Imm: Denies: hives PFSH ED PFSH: Medical History ASHD (arteriosclerotic heart disease) Atrial fibrillation was taken off anticoagulation due to GI bleed, has IVC filter Piper's esophagus BPH (benign prostatic hyperplasia) Carcinoma of esophagus radiation esophagitis CHF (congestive heart failure), NYHA class I COPD (chronic obstructive pulmonary disease) CVA (cerebral vascular accident) Diabetes Dyslipidemia (high LDL; low HDL) Essential hypertension Gait disturbance Lewy body dementia with behavioral disturbance NATALI (obstructive sleep apnea) Pulmonary emboli Surgical History Trip filter in place Previous back surgery S/P angioplasty with stent S/P appendectomy S/P hernia repair S/P tonsillectomy S/P WORLD DESIGNER shunt due to hydrocephalus Social History Smoking and tobacco status: former smoker Quit status (tobacco): has quit using tobacco Alcohol intake: former Physical Exam Const: COMMON NORMALS: no apparent distress, oriented x3 and healthy appearing HENMT: COMMON NORMALS: normocephalic and head/scalp atraumatic HEAD & SCALP: normocephalic and atraumatic Eye: COMMON NORMALS: PERRL and EOMs intact bilaterally PUPIL: Yes PERRL Neck/C-Spine: COMMON NORMALS: full ROM and supple Chest: COMMONS NORMALS: inspection of chest normal and palpation of chest normal Resp: COMMON NORMALS: normal respiratory effort, no retractions, no use of accessory muscles and clear to auscultation bilaterally AUSCULTATION: clear to auscultation bilaterally Cardio: COMMON NORMALS: regular rate, regular rhythm and no murmurs RATE: regular rate RHYTHM: regular rhythm GI: COMMON NORMALS: normal to inspection, nondistended, normoactive bowel sounds, soft to palpation, non-tender and no masses PALPATION: Yes soft Extremity: COMMON NORMALS: normal to inspection and full ROM Neuro: COMMON NORMALS: oriented x3, moves all extremities and no focal motor deficits Psych: COMMON NORMALS: mental status grossly normal, thought process normal and cooperative THOUGHT PROCESS: normal thought process Skin: COMMON NORMALS: no rashes or lesions noted and no wounds GENERAL SKIN EXAM: no rashes or lesions noted Course Vital Signs: Vital signs: Vital Signs Temperature 97.6 F 04/06/19 11:40 Pulse Rate 93 04/06/19 14:55 Respiratory Rate 18 04/06/19 14:55 Blood Pressure 135/87 04/06/19 14:55 Pulse Oximetry 96 04/06/19 14:55 MDM - General Adult MDM Narrative: Medical decision making narrative: Willie presents here with chest pain and has a long history of chest pain. Initial and repeat troponin here negative. He has no signs of acute coronary cause or pulmonary embolism. Patient is stable for discharge and is to follow-up with primary care doctor in 3 to 5 days return if worsening. Lab Data: Labs: Lab Results 04/06/19 04/06/19 04/06/19 Range/Units 11:23 11:23 11:23 WBC 6.2 (4.0-10.0) 10^3/ uL RBC 4.63 (4.1-5.3) 10^6/u L Hgb 12.1 (11.7-16.6) g/dL Hct 39.2 L (42.0-52.0) % MCV 84.7 (80-94) fL MCH 26.1 L (28.0-34.0) pg MCHC 30.9 (30.0-36.0) g/dL RDW 15.5 H (12.1-15.1) % Plt Count 279 (130-400) 10^3/c mm MPV 10.6 H (7.4-10.4) fL Neut % (Auto) 60.0 % Lymph % (Auto) 19.6 % Zavala % (Auto) 10.8 % Eos % (Auto) 8.9 % Baso % (Auto) 0.5 % Neut # (Auto) 3.7 (1.8-7.7) 10^3/u L Lymph # (Auto) 1.2 (0.8-4.8) 10^3/u L Z[place]ala # (Auto) 0.7 (0.2-0.9) 10^3/u L Eos # (Auto) 0.6 (0.0-0.8) 10^3/u L Baso # (Auto) 0.0 (0.0-0.1) 10^3/u L Nucleated RBC % (a uto) 0 % Nucleated RBCs # 0.0 /100WBC Sodium 141 (136-145) mmol/L Potassium 3.4 L (3.5-5.1) mmol/L Chloride 101 (98-107) mmol/L Carbon Dioxide 26 (22-29) mmol/L Anion Gap 17.4 (5-19) BUN 10 (8-23) mg/dL Creatinine 1.0 (0.7-1.2) mg/dL Glucose 85 (65-115) mg/dL Calcium 9.1 (8.5-10.5) mg/dL Total Bilirubin 0.3 (0.15-1.2) mg/dL AST 11 (0-40) U/L ALT 8 (0-41) U/L Alkaline Phosphata se 105 (40-130) IU/L Troponin T Baselin e 33 H (0-15) ng/mL Troponin T 120 Min red devil (0-15) ng/mL Delta Troponin T (0-10) ABS# Total Protein 6.8 (6.6-8.7) g/dL Albumin 4.1 (3.5-5.2) g/dL Globulin 2.7 (1.3-4.6) g/dL Lipase 36 (13-60) U/L 04/06/19 Range/Units 13:20 WBC (4.0-10.0) 10^3/ uL RBC (4.1-5.3) 10^6/u L Hgb (11.7-16.6) g/dL Hct (42.0-52.0) % MCV (80-94) fL MCH (28.0-34.0) pg MCHC (30.0-36.0) g/dL RDW (12.1-15.1) % Plt Count (130-400) 10^3/c mm MPV (7.4-10.4) fL Neut % (Auto) % Lymph % (Auto) % Zavala % (Auto) % Eos % (Auto) % Baso % (Auto) % Neut # (Auto) (1.8-7.7) 10^3/u L Lymph # (Auto) (0.8-4.8) 10^3/u L Zavala # (Auto) (0.2-0.9) 10^3/u L Eos # (Auto) (0.0-0.8) 10^3/u L Baso # (Auto) (0.0-0.1) 10^3/u L Nucleated RBC % (a uto) % Nucleated RBCs # /100WBC Sodium (136-145) mmol/L Potassium (3.5-5.1) mmol/L Chloride (98-107) mmol/L Carbon Dioxide (22-29) mmol/L Anion Gap (5-19) BUN (8-23) mg/dL Creatinine (0.7-1.2) mg/dL Glucose (65-115) mg/dL Calcium (8.5-10.5) mg/dL Total Bilirubin (0.15-1.2) mg/dL AST (0-40) U/L ALT (0-41) U/L Alkaline Phosphata se (40-130) IU/L Troponin T Baselin e (0-15) ng/mL Troponin T 120 Min red devil 30.50 H (0-15) ng/mL Delta Troponin T -2.50 L (0-10) ABS# Total Protein (6.6-8.7) g/dL Albumin (3.5-5.2) g/dL Globulin (1.3-4.6) g/dL Lipase (13-60) U/L Imaging Data^: CXR: My impression: no acute abnormality EKG Data^: EKG 1: Attestation: I personally reviewed and interpreted this EKG as follows: EKG interpretation date: 04/06/19 EKG interpretation time: 11:58 Interpretation: Atrial fib heart rate [address] or T wave abnormalities QRS 103 QTC 411 Computer generated interpretation: Chest X-Ray 04/06/19 11:42 IMPRESSION: Negative chest for active pathology. EKG 2: Attestation: I personally reviewed and interpreted this EKG as follows: EKG interpretation date: 04/06/19 EKG interpretation time: 14:00 Interpretation: afir hr [address] or t wave abnormalities Computer generated interpretation: Chest X-Ray 04/06/19 11:42 IMPRESSION: Negative chest for active pathology. Discharge Plan Discharge Patient Disposition: Home, Self-Care Clinical Impression: Chest pain Qualifiers: Chest pain type: other chest pain Qualified Code(s): R07.89 - Other chest pain Condition: Stable Prescriptions: No Action nitroglycerin [Nitrostat] 0.4 mg tablet, sublingual 0.4 mg SUBLINGUAL Q5M PRN (Reason: Chest Pain) RF: 0 tamsulosin [Flomax] 0.4 mg capsule 0.4 mg PO DAILY RF: 0 albuterol sulfate 2.5 mg/0.5 mL solution for nebulization 10 mg INHALATION Q4H PRN (Reason: Shortness of breathe) RF: 0 risperidone 0.5 mg tablet 0.5 mg PO BID RF: 0 donepezil [Aricept] 10 mg tablet 10 mg PO .AM RF: 0 memantine [Namenda] 10 mg tablet 10 mg PO BID RF: 0 melatonin 5 mg capsule PO .HS RF: 0 vitamin B complex [B Complex-Vitamin B12] Tablet 1 tab PO QAM RF: 0 ascorbate calcium (vitamin C) 500 mg tablet 500 mg PO DAILY RF: 0 Eliquis 5 mg tablet 5 mg PO BID 90 Days Qty: 180 RF: 1 furosemide 40 mg tablet 40 mg PO BID Qty: 180 RF: 1 potassium chloride 20 mEq tablet extended release 20 meq PO DAILY 90 Days Qty: 90 RF: 1 sucralfate 100 mg/mL Suspension 1 g PO AC&BEDTIME Qty: 420 RF: 0 Nexium 40 mg capsule,delayed release(DR/EC) 40 mg PO BID Qty: 60 RF: 0 Discharge Orders: Discharge Order (Routine); Ordered 04/06/19 Ordered By: Leola Sequeira Referrals: Jimmy Stubbs MD [Family Provider] - 4-7 days Discharge Diet: Advance as tolerated Discharge Activity: Resume usual activity Patient Instructions: Chest Pain (ED) Discharge Date/Time: 04/06/19 14:55 Coding Level of Care Code ED Warp Tier for Chg Fwd Exam Comprehensive The documentation recorded by the Raphael arriaza Kialy, accurately reflects the service I personally performed and the decisions made by Hua san Korby, MD
--- NOTE | 2019-04-06 11:42 | XR_ITS ---
WS: [id number] XR chest 1V portable [id number] REASON FOR EXAM: cp FINDINGS: Resolution of the pulmonary edema is seen. A shunt tube is seen extending from the left side. The heart today is not enlarged. No pneumonia, pleural effusion, pulmonary edema, or mass effect. XR/XR chest 1V portable [id number] IMPRESSION: Negative chest for active pathology.
--- NOTE | 2019-04-06 11:42 | ECG_ITS ---
Measurements Intervals Fred Rate: 78 P: AR: 0 QRS: -27 QRSD: 103 T: 64 QT: 377 QTc: 432 ATRIAL FIBRILLATION BORDERLINE LEFT AXIS DEVIATION [QRS AXIS < -20] LOW QRS VOLTAGE IN PRECORDIAL LEADS [QRS DEFLECTION < 1.0 mV IN CHEST LEADS] POSSIBLE RIGHT VENTRICULAR CONDUCTION DELAY [RSR (QR) IN V1/V2] NONSPECIFIC ST & T-WAVE ABNORMALITY Compared to ECG 04/01/2019 05:28:18 No significant changes Electronically Signed On 04-06-2019 13:03:50 TILE GRADER by Ashley Bethea M.D. [id number] cerna
[2019-04-06 11:45] VITALS: BP 142/82; PULSE 97; RESP 18; O2SAT 97
[2019-04-06 11:47] VITALS: RESP 16
[2019-04-06 11:51] VITALS: RESP 18; O2SAT 94
[2019-04-06] MEDS: ondansetron 2 mg/ML SDV 2 mL 4 MG IVP (11:51)
[2019-04-06] MEDS: morphine 4 mg/mL SDV 1 mL IVP (11:51)
[2019-04-06 11:57] LABS: Basophils % 0.5 %; Eosinophils # 0.6 10^3/uL (0.0-0.8); Eosinophils % 8.9 %; Hematocrit 39.2 % (42.0-52.0); Hemoglobin 12.1 g/dL (11.7-16.6); Lymphocytes # 1.2 10^3/uL (0.8-4.8); Lymphocytes % 19.6 %; Mean Corpuscular HGB Conc 30.9 g/dL (30.0-36.0); Mean Corpuscular Hemoglobin 26.1 pg (28.0-34.0); Mean Corpuscular Volume 84.7 fL (80-94); Mean Platelet Volume 10.6 fL (7.4-10.4); Monocytes # 0.7 10^3/uL (0.2-0.9); Monocytes % 10.8 %; Neutrophils # 3.7 10^3/uL (1.8-7.7); Nucleated Red Blood Cells % 0 %; Platelet Count 279 10^3/cmm (130-400); Red Blood Count 4.63 10^6/uL (4.1-5.3); Red Cell Distribution Width 15.5 % (12.1-15.1); White Blood Count 6.2 10^3/uL (4.0-10.0)
[2019-04-06 12:19] LABS: Alanine Aminotransferase 8 U/L (0-41); Albumin Level 4.1 g/dL (3.5-5.2); Alkaline Phosphatase 105 IU/L (40-130); Anion Gap 17.4 (5-19); Aspartate Amino Transferase 11 U/L (0-40); Blood Urea Nitrogen 10 mg/dL (8-23); Calcium 9.1 mg/dL (8.5-10.5); Carbon Dioxide 26 mmol/L (22-29); Chloride 101 mmol/L (98-107); Globulin 2.7 g/dL (1.3-4.6); Glucose 85 mg/dL (65-115); Lipase 36 U/L (13-60); Potassium 3.4 mmol/L (3.5-5.1); Sodium 141 mmol/L (136-145); Total Bilirubin 0.3 mg/dL (0.15-1.2); Total Protein 6.8 g/dL (6.6-8.7)
[2019-04-06 12:24] LABS: Troponin(5th) Baseline 33 ng/mL (0-15)
--- NOTE | 2019-04-06 13:42 | ECG_ITS ---
Measurements Intervals [place] Rate: 83 P: NM: 0 QRS: -31 QRSD: 94 T: 120 QT: 360 QTc: 424 ATRIAL FIBRILLATION WITH ABERRANT CONDUCTION OR VENTRICULAR PREMATURE COMPLEXES LEFT AXIS DEVIATION [QRS AXIS < -30] LOW QRS VOLTAGE IN PRECORDIAL LEADS POSSIBLE RIGHT VENTRICULAR CONDUCTION DELAY NONSPECIFIC T-WAVE ABNORMALITY Compared to ECG 04/06/2019 11:58:57 Ventricular premature complex(es) now present Aberrant conduction of supraventricular beat(s) now present T-wave abnormality still present Electronically Signed On 04-07-2019 15:42:45 DAIRY CATTLE FARM WORKER by Ashley Bethea M.D. [id number]
[2019-04-06 14:55] VITALS: BP 135/87; PULSE 93; RESP 18; O2SAT 96
== END 2019-04-06 14:55 | disposition home or self-care (01) ==
PROVIDERS: Emergency Provider Emergency Medicine; Family Provider Family Medicine
DX: R07.9 Chest pain, unspecified (principal); I25.10 Atherosclerotic heart disease of native coronary artery without angina pectoris; I48.91 Unspecified atrial fibrillation; I50.9 Heart failure, unspecified; J44.9 Chronic obstructive pulmonary disease, unspecified; E11.9 Type 2 diabetes mellitus without complications; E78.5 Hyperlipidemia, unspecified; G31.83 Neurocognitive disorder with Lewy bodies; F02.81 Dementia in other diseases classified elsewhere, unspecified severity, with behavioral disturbance; Z87.891 Personal history of nicotine dependence; Z86.73 Personal history of transient ischemic attack (TIA), and cerebral infarction without residual deficits
CPT/HCPCS: 36415; 71045; 80053; 83690; 84484; 85025; 93005; 96374; 96375; 99282; 99284; J2270; J2405

== ENCOUNTER 2019-06-20 14:30 | Outpatient (CLI) | payer MEDICARE, MEDICAID, SELFPAY ==
--- NOTE | 2019-06-20 14:53 | XR_ITS ---
WS: [id number] INDICATION: Hydrocephalus TECHNIQUE: Shunt series 7 views FINDINGS: Left frontal shunt catheter. Tubing appears intact. Tubing over the left hemithorax appears normal. Coronary artery stents. Shunt tubing in the pelvis. Shunt tubing appears intact. IVC filter. Moderate to advanced spondylitic changes lumbar spine. Aortic calcification. Moderate chronic emphyse matous changes. No acute pulmonary infiltrates. No focal pneumonia. Cardiomegaly. Aortic calcificatio n. XR/XR shunt series IMPRESSION: Left frontal shunt tubing appears intact
--- NOTE | 2019-06-20 14:53 | CT_ITS ---
WS: [id number] CT HEAD TECHNIQUE: Noncontrast CT of the head obtained from the skullbase to the vertex. 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 use at least one of these dose optimization techniques: automat ed exposure control; mA and/or kV adjustment per patient size (includes targeted exams where dose is matched to clinical indication); or iterative reconstruction. FINDINGS: No evidence of intracranial hemorrhage or mass effect. Ventricular system and basal cisterns are valenzuela nt. Moderate small vessel changes with moderate parenchymal volume loss. Left frontal shunt catheter with tip in the left frontal horn. Ventricular size is stable from previous. No evidence of progressi ve hydrocephalus. No transependymal edema. Paranasal sinuses and mastoid air cells are well aerated. . Chronic right frontal alyssa hole CT/CT head wo con* 15441 IMPRESSION: 1. No evidence of intracranial hemorrhage or mass effect. 2. Stable left frontal shunt catheter with tip in the left frontal horn. Ventri cular size is unchanged. 3. Moderate small vessel changes with moderate parenchymal volume loss. 4. No significant interval changes.
== END 2019-06-20 14:31 | disposition home or self-care (01) ==
LOC: RADWPI 14:33
PROVIDERS: Family Provider Family Medicine; PCP Nurse Practitioner Family; Visit Provider Licensed Practical Nurse
DX: Z98.2 Presence of cerebrospinal fluid drainage device (principal); G91.9 Hydrocephalus, unspecified
CPT/HCPCS: 70250; 70450; 71046; 72040; 74019

== ENCOUNTER 2019-06-21 12:33 | Emergency (ER) | payer MEDICARE, MEDICAID, SELFPAY ==
[2019-06-21 12:34] VITALS: BP 126/61; PULSE 65; RESP 16; TEMP 36.7; O2SAT 95; BMI 29.8
--- NOTE | 2019-06-21 13:14 | W.ED.EXTPRO ---
HPI - Extremity Problem General: Chief complaint: Extremity Problem,Nontraumatic Stated complaint: LEFT LEG PAIN Time Seen by Provider: 06/21/19 12:42 Source: patient and EMS Mode of arrival: EMS History of Present Illness: HPI Narrative: 78-year-old male with multiple medical issues including chronic left knee pain. He has had left knee surgery many years ago and says occasionally he has an exacerbation of the pain. He states that today he has had an exacerbation of the left knee pain making it difficult for him to walk due to the pain. No recent falls or trauma. No swelling more than is normal for him. He is here for relief of his pain. Complaint: extremity pain Onset (ago): day(s) (1) Pain Consistency: constant Location: left and lower extremity Severity scale (1-10): 10 Quality: sharp Radiation: none Relieving factors: nothing Exacerbating factors: weight bearing Associated symptoms: Reports arthralgias and chest pain; Deny fever(s) Review of Systems General: Reports: 10 or more systems reviewed and unremarkable except in HPI and below Const: Denies: fever, chills or body aches Card: Reports: chest pain and swelling of feet/ankles; Denies: palpitations, irregular heart rhythm or edema Resp: Denies: shortness of breath, productive cough or non-productive cough GI: Denies: abdominal pain, nausea or vomiting : Denies: flank pain, painful urination, urinary frequency, urinary urgency or urinary hesitancy Musc: Denies: neck pain, back pain or extremity swelling Neuro: Denies: headache, numbness in extremities or weakness in extremities PFS ED PFSH: Social History Smoking and tobacco status: former smoker Quit status (tobacco): has quit using tobacco Alcohol intake: former Physical Exam Const: COMMON NORMALS: no apparent distress, average body habitus, oriented x3, no limitations, healthy appearing, alert and well nourished Neck/C-Spine: COMMON NORMALS: no meningeal signs and no JVD Resp: COMMON NORMALS: normal respiratory effort, no retractions, no use of accessory muscles, clear to auscultation bilaterally and percussion normal AUSCULTATION: clear to auscultation bilaterally PERCUSSION: percussion normal Cardio: COMMON NORMALS: no JVD, regular rate, regular rhythm, S1 normal heart sound, S2 normal heart sound, no gallops, no clicks, no murmurs, no rub and peripheral pulses 2+ throughout RATE: regular rate RHYTHM: regular rhythm HEART SOUNDS: S1 normal and S2 normal PERIPHERAL PULSES: pulses 2+ throughout GI: COMMON NORMALS: normal to inspection, nondistended, normoactive bowel sounds, soft to palpation, non-tender, no hepatosplenomegaly, no masses and no bruits PALPATION: Yes soft and Yes no hepatosplenomegaly : COMMON NORMALS: Yes no CVA tenderness BLADDER/KIDNEY EXAM: Yes no CVA tenderness Back/Pelvis: COMMON NORMALS: no CVA tenderness Extremity: COMMON NORMALS: normal to inspection, full ROM, normal capillary refill and no calf tenderness GENERAL: Yes edema (2+) LEFT LOWER EXTREMITY: Yes knee joint (vague generalized tenderness) Neuro: COMMON NORMALS: oriented x3 SENSORIUM/ORIENTATION: Yes alert MENINGEAL SIGNS: Yes no meningeal signs Course Reevaluation(s): Reevaluation #1: Patient feels much better and is ready to be discharged home Vital Signs: Vital signs: Vital Signs Temperature 98.0 F 06/21/19 12:34 Pulse Rate 74 06/21/19 13:35 Respiratory Rate 14 06/21/19 13:35 Blood Pressure 107/59 06/21/19 13:35 Pulse Oximetry 97 06/21/19 13:35 MDM - Extremity (Nontraumatic) MDM Narrative: Medical decision making narrative: 78-year-old gentleman who presents with acute on chronic knee pain. Pain was improved following a single dose of intramuscular ketorolac and orphenadrine. He is discharged home with no new orders. Medical Records: Attestation: I reviewed the patient's medical records. Discharge Plan Discharge Patient Disposition: Home, Self-Care Clinical Impression: Acute pain of left knee Condition: Stable Prescriptions: Continued nitroglycerin [Nitrostat] 0.4 mg tablet, sublingual 0.4 mg SUBLINGUAL Q5M PRN (Reason: Chest Pain) RF: 0 tamsulosin [Flomax] 0.4 mg capsule 0.4 mg PO DAILY RF: 0 albuterol sulfate 2.5 mg/0.5 mL solution for nebulization 10 mg INHALATION Q4H PRN (Reason: Shortness of breathe) RF: 0 risperidone 0.5 mg tablet 0.5 mg PO BID RF: 0 donepezil [Aricept] 10 mg tablet 10 mg PO .AM RF: 0 memantine [Namenda] 10 mg tablet 10 mg PO BID RF: 0 melatonin 5 mg capsule PO .HS RF: 0 vitamin B complex [B Complex-Vitamin B12] Tablet 1 tab PO QAM RF: 0 ascorbate calcium (vitamin C) 500 mg tablet 500 mg PO DAILY RF: 0 Eliquis 5 mg tablet 5 mg PO BID 90 Days Qty: 180 RF: 1 furosemide 40 mg tablet 40 mg PO BID Qty: 180 RF: 1 potassium chloride 20 mEq tablet extended release 20 meq PO DAILY 90 Days Qty: 90 RF: 1 Nexium 40 mg capsule,delayed release(DR/EC) 40 mg PO BID Qty: 60 RF: 0 sucralfate 100 mg/mL suspension 1 g PO Q6H 30 Days Qty: 1200 RF: 2 Discharge Orders: Discharge Order (Routine); Ordered 06/21/19 Ordered By: Nicole Weiner Referrals: Ashley Medrano [Primary Care Provider] - 4-7 days Patient Instructions: Knee Pain (ED) Activity Restrictions/Additional Instructions: Return for any new or worsening symptoms. Follow-up with your primary care provider within 1 week. Continue your regular home medications. Discharge Date/Time: 06/21/19 13:37 Coding Level of Care Code ED Copyright Manager for Irma Fwrandy Exam Detailed
[2019-06-21] MEDS: ketorolac 60 mg/2 mL INJ IM (13:22)
[2019-06-21] MEDS: orphenadrine 30 mg/mL Inj 2 mL 60 MG IM (13:23)
[2019-06-21 13:35] VITALS: BP 107/59; PULSE 74; RESP 14; O2SAT 97
== END 2019-06-21 13:37 | disposition home or self-care (01) ==
PROVIDERS: Emergency Provider Family Medicine; PCP Nurse Practitioner Family
DX: M25.562 Pain in left knee (principal); Z79.01 Long term (current) use of anticoagulants; Z87.891 Personal history of nicotine dependence
CPT/HCPCS: 12345; 96372; 99281; 99283; J1885; J2360

== ENCOUNTER 2019-07-24 08:02 | Day surgery (SDC) | payer MEDICARE, MEDICAID, SELFPAY ==
[2019-07-23 14:10] VITALS: BMI 33.2
[2019-07-24 08:19] VITALS: BP 141/79; PULSE 69; RESP 18; TEMP 36.7; O2SAT 97
[2019-07-24] MEDS: sodium chloride 0.9% 1,000 ML 30 ML IV (08:27)
--- NOTE | 2019-07-24 08:36 | ANES.PREANE2 ---
Pre-Anesthetic Assessment Pre-Anesthetic Assessment: Height/Weight: Height 1.8 m Weight 107.955 kg Temp Pulse Resp BP Pulse Ox 98.0 F 69 18 141/79 97 07/24/19 08:19 07/24/19 08:19 07/24/19 08:19 07/24/19 08:19 07/24/19 08:19 Preop Diagnosis: History of esophageal cancer Proposed Procedure: Operation Date: 07/24/19 09:00 Proposed Procedures p EGD 11600 R13.10(Not Applicable) - Alcon Villar MD Was Beta Gopi taken within 24 hours: N/A Last intake: Intake Last Liquid Date 07/23/19 Last Liquid Time 20:00 Last Solid Date 07/23/19 Last Solid Time 20:00 Last Intake: 20:00 Social: Social History: No alcohol (stop 1997) and No tobacco (stopn 1997) Exam: Pre-Anes Outpt Exam: alert, oriented x 3, clear to auscultation bilaterally and regular rate & rhythm (irregular HB) Airway: Submandibular: WNL Cervical ROM: WNL MP: 2 Dentition: False Pulmonary: Pulmonary: COPD, Cough, PALMER, Sleep apnea and SOB CV/HEM: CV/HEM: Afib, Arrythmia, CAD, CHF, DVT (RLE and PE 2yrs ago) and HTN : : None reported Hepatic: Hepatic: None reported GI: GI: GERD Comments: HX esphageal CA Metabolic: Metabolic: None reported Musc/skel: Musc/skel: Weakness Neuropsych: Neuropsych: Dementia and Depression Anesthetic Plan: ASA status: 4 Anesthesia: Anesthesia Evaluation and MAC Risk of > 500 ml blood loss (7ml/kg in children): No Meds/Allergies Current Medications: Current Medications Generic Name Dose Route Start Last Admin Trade Name Freq PRN Reason Stop Dose Admin Sodium Chloride 1,000 mls @ 30 ml s/hr 07/24/19 08:15 07/24/19 08:27 Sodium Chloride 0.9% IV 07/25/19 08:14 30 mls/hr .Q24H CULLEN Administration PFSH Anesthesia PFSH: Medical History Anticoagulation adequate with anticoagulant therapy ASHD (arteriosclerotic heart disease) Atrial fibrillation was taken off anticoagulation due to GI bleed, has IVC filter Piper's esophagus BPH (benign prostatic hyperplasia) Carcinoma of esophagus radiation esophagitis CHF (congestive heart failure), NYHA class I COPD (chronic obstructive pulmonary disease) CVA (cerebral vascular accident) Diabetes Dyslipidemia (high LDL; low HDL) Essential hypertension Gait disturbance Lewy body dementia with behavioral disturbance NATALI (obstructive sleep apnea) Post laminectomy syndrome Pulmonary emboli Surgical History (Updated 07/15/19 @ 16:33 by Alcon Villar MD) Trip filter in place History of esophagogastroduodenoscopy (EGD) (04/2019) Previous back surgery S/P angioplasty with stent S/P appendectomy S/P hernia repair S/P tonsillectomy 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 Aicha Roche ELECTRONICS SPECIALIST shunt revision Family History Father CAD (coronary artery disease) Mother CAD (coronary artery disease) Hypertension Sister CAD (coronary artery disease) Diabetes Family/Other Stroke Denies family history of Anesthesia complication Bleeding disorder Social History Smoking and tobacco status: former smoker Quit status (tobacco): has quit using tobacco Alcohol intake: former Data Anesthesia Cardiac Studies: No Data to Display
--- NOTE | 2019-07-24 09:05 | W.PM.OPSUD ---
Surgery/Procedure H&P Update DATE OF PROCEDURE: July 24, 2019 DATE H&P PERFORMED: 07/15/19 H&P UPDATE INFORMATION: I have reviewed H&P completed within last 30 days, I have examined patient prior to procedure and No changes to prior documentation PREOP DIAGNOSIS: History of esophageal cancer PLANNED PROCEDURE: Operation Date: 07/24/19 09:00 Proposed Procedures p EGD 42443 R13.10(Not Applicable) - Alcon Villar MD
--- NOTE | 2019-07-24 09:20 | ANE.PACU2 ---
Inpatient post-anesthesia follow up: Airway intact: Yes Vital signs: Temperature 98.0 F Pulse Rate 69 Respiratory Rate 18 Blood Pressure 141/79 Pulse Oximetry 97 Oxygen Delivery Me thod Room Air Oxygen Flow Rate Fraction of Inspir ed Oxygen Hydration adequate: Yes Nausea and vomiting: No Pain level: 1 Mental status: Baseline
[2019-07-24 09:23] VITALS: BP 114/68; PULSE 69; RESP 16; TEMP 36.4; O2SAT 97
[2019-07-24 09:31] VITALS: BP 121/71; PULSE 63; RESP 18; TEMP 36.4; O2SAT 99
== END 2019-07-24 09:50 | disposition home or self-care (01) ==
PROVIDERS: PCP Nurse Practitioner Family; Visit Provider Surgery
PROC: 0DJ08ZZ Inspection of Upper Intestinal Tract, Via Natural or Artificial Opening Endoscopic (ICD-10-PCS; CPT 43235; principal; 2019-07-24 09:00)
DX: R13.10 Dysphagia, unspecified (principal); K20.9 Esophagitis, unspecified; K29.70 Gastritis, unspecified, without bleeding; J44.9 Chronic obstructive pulmonary disease, unspecified; G47.30 Sleep apnea, unspecified; I48.91 Unspecified atrial fibrillation; I25.10 Atherosclerotic heart disease of native coronary artery without angina pectoris; I11.0 Hypertensive heart disease with heart failure; I50.9 Heart failure, unspecified; Z86.718 Personal history of other venous thrombosis and embolism; E11.9 Type 2 diabetes mellitus without complications; E78.5 Hyperlipidemia, unspecified; Z87.891 Personal history of nicotine dependence
CPT/HCPCS: 12345; 43239; 88305; J2704; J7030

== ENCOUNTER 2019-07-26 17:16 | Emergency (ER) | payer MEDICARE, MEDICAID, SELFPAY ==
[2019-07-26 17:16] VITALS: BMI 27.8
[2019-07-26 17:22] VITALS: BP 138/67; PULSE 66; RESP 18; TEMP 37; O2SAT 97
--- NOTE | 2019-07-26 17:30 | XRR_ITS ---
PROCEDURE INFORMATION: Exam: XR Chest, 1 View Exam date and time: 07/26/2019 5:32 PM Age: 78 years old Clinical indication: Chest pain; Type not specified; Patient HX: New onset c/p TECHNIQUE: Imaging protocol: XR of the chest Views: 1 view. COMPARISON: CTA Chest-Pulmonary Emb [id number] 11/18/2017 7:20 PM FINDINGS: Tubes, catheters and devices: Ventriculoperitoneal shunt. Lungs: No visible active interstitial or alveolar airspace disease. Pleural space: Unremarkable. No pleural effusion. No pneumothorax. Heart/Mediastinum: Cardiac structures and configuration reveal arterial sclerosis and coronary artery disease. Coronary artery stent. Bones/joints: Age-appropriate skeletal findings. XR/XR chest 1V portable [id number] IMPRESSION: Nonacute.
--- NOTE | 2019-07-26 17:32 | W.ED.CHESTPA ---
HPI - Chest Pain General: Chief Complaint: Chest Pain Stated Complaint: CHEST PAIN Time Seen by Provider: 07/26/19 17:21 Source: patient Mode of arrival: EMS History of Present Illness: HPI narrative: Patient presents with chest pain that started about 30 minutes prior to arrival. Pain started in his left chest that radiated to the substernal area on the right chest. Currently he has pain only in his left chest. He denies any fever, has some shortness of breath, mild cough which is nonproductive. He denies current cigarette smoking, used to smoke in the past. MD complaint: chest pain Onset (ago): minute(s) (30) Timing of current episode: constant Pain location: substernal, left chest and right chest Associated symptoms: Reports no associated symptoms; Deny abdominal pain, dyspnea, fever(s), nausea, palpitations or vomiting Review of Systems General: Reports: 10 or more systems reviewed and unremarkable except in HPI and below Const: Denies: fever(s), chills or body aches Eyes: Denies: change in vision or blurry vision ENMT: Denies: throat pain, enlarged tonsils, odynophagia, hoarseness, mouth pain or swelling of lips/tongue Card: Reports: chest pain; Denies: palpitations, irregular heart rhythm, edema or swelling of feet/ankles Resp: Denies: dyspnea, productive cough or non-productive cough GI: Reports: heartburn; Denies: abdominal pain, nausea or vomiting : Denies: flank pain, dysuria, urinary frequency, urinary urgency or urinary hesitancy Musc: Denies: neck pain, back pain or extremity swelling Skin/Breast: Denies: rash, pruritus or erythema Neuro: Denies: headache(s), numbness in extremities or weakness in extremities Endo: Denies: polyuria, polydipsia or tired all the time PFS ED PFSH: Medical History Anticoagulation adequate with anticoagulant therapy ASHD (arteriosclerotic heart disease) Atrial fibrillation was taken off anticoagulation due to GI bleed, has IVC filter Piper's esophagus BPH (benign prostatic hyperplasia) Carcinoma of esophagus radiation esophagitis CHF (congestive heart failure), NYHA class I COPD (chronic obstructive pulmonary disease) CVA (cerebral vascular accident) Diabetes Dyslipidemia (high LDL; low HDL) Essential hypertension Gait disturbance Lewy body dementia with behavioral disturbance NATALI (obstructive sleep apnea) Post laminectomy syndrome Pulmonary emboli Surgical History Trip filter in place History of esophagogastroduodenoscopy (EGD) (07/24/19) resolution of Grade D esophagitis, no evidence of carcinoma Previous back surgery S/P angioplasty with stent S/P appendectomy S/P hernia repair S/P tonsillectomy 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 Aicha Roche PUNCH OPERATOR shunt revision Family History Father CAD (coronary artery disease) Mother CAD (coronary artery disease) Hypertension Sister CAD (coronary artery disease) Diabetes Family/Other Stroke Denies family history of Anesthesia complication Bleeding disorder Social History Smoking and tobacco status: former smoker Quit status (tobacco): has quit using tobacco Alcohol intake: former Physical Exam Const: COMMON NORMALS: no acute distress, average body habitus, patient oriented x3, no limitations, healthy appearing, alert and well nourished HENMT: COMMON NORMALS: normocephalic, atraumatic and moist oral mucous membranes HEAD & SCALP: normocephalic and atraumatic Eye: COMMON NORMALS: Equal, round and reactive pupils present, EOMs intact bilaterally, conjunctivae normal and no scleral icterus CONJUNCTIVA: Yes conjunctivae normal PUPIL: Yes Equal, round and reactive pupils present Neck/C-Spine: COMMON NORMALS: full ROM, supple, no meningeal signs, no JVD and No carotid bruits Chest: COMMONS NORMALS: normal inspection of the chest and normal palpation of entire chest wall Resp: COMMON NORMALS: normal respiratory effort, No retractions, No use of accessory muscles, clear to auscultation bilaterally and percussion normal AUSCULTATION: clear to auscultation bilaterally PERCUSSION: percussion normal Cardio: COMMON NORMALS: no JVD, regular rate, regular rhythm, S1 normal heart sound present, S2 normal heart sound present, No gallops present (Cardio), No clicks present (Cardio), No murmurs present (Cardio), No rub (Cardio) and Peripheral pulses 2+ throughout RATE: regular rate RHYTHM: regular rhythm HEART SOUNDS: S1 normal heart sound present and S2 normal heart sound present PERIPHERAL PULSES: Peripheral pulses 2+ throughout GI: COMMON NORMALS: Normal to inspection, nondistended, normoactive bowel sounds present, Soft to palpation, non-tender, No hepatosplenomegaly present, no masses and no bruits PALPATION: Yes Soft to palpation and Yes No hepatosplenomegaly present : COMMON NORMALS: Yes no CVA tenderness BLADDER/KIDNEY EXAM: Yes no CVA tenderness Back/Pelvis: COMMON NORMALS: no CVA tenderness Extremity: COMMON NORMALS: normal to inspection, full ROM, capillary refill normal, no calf tenderness and no pedal edema Neuro: COMMON NORMALS: patient oriented x3 SENSORIUM/ORIENTATION: Yes alert MENINGEAL SIGNS: Yes no meningeal signs Skin: COMMON NORMALS: no rashes or lesions noted, no wounds, turgor normal, no jaundice, no petechiae and no mottling GENERAL SKIN EXAM: no rashes or lesions noted and turgor normal Course Reevaluation(s): Reevaluation #1: Discussed his lab and imaging findings with him. Troponin elevated but he has a flat 2-hour delta. Looking at his prior troponins this is around his baseline. Other labs unremarkable. Chest x-ray unremarkable. He will be discharged home with no new orders. He voiced understanding and all questions answered. Time: 20:09 Vital Signs: Vital signs: Vital Signs Temperature 98.6 F 07/26/19 17:22 Pulse Rate 68 07/26/19 21:37 Respiratory Rate 16 07/26/19 21:37 Blood Pressure 133/69 07/26/19 21:37 Pulse Oximetry 98 07/26/19 21:37 MDM - Chest Pain MDM Narrative: Medical decision making narrative: 78-year-old gentleman who presents with chest pain. Cardiac evaluation unremarkable for acute findings. He is discharged home with no new orders. Lab Data: Labs: Lab Results 07/26/19 07/26/19 07/26/19 Range/Units 17:45 17:45 17:45 WBC 6.9 (4.0-10.0) 10^3/ uL RBC 4.57 (4.1-5.3) 10^6/u L Hgb 10.9 L (11.7-16.6) g/dL Hct 37.7 L (42.0-52.0) % MCV 82.5 (80-94) fL MCH 23.9 L (28.0-34.0) pg MCHC 28.9 L (30.0-36.0) g/dL RDW 17.5 H (12.1-15.1) % Plt Count 229 (130-400) 10^3/c mm MPV 10.5 H (7.4-10.4) fL Neut % (Auto) 58.7 % Lymph % (Auto) 24.1 % [place] % (Auto) 10.5 % Eos % (Auto) 5.8 % Baso % (Auto) 0.6 % Neut # (Auto) 4.0 (1.8-7.7) 10^3/u L Lymph # (Auto) 1.7 (0.8-4.8) 10^3/u L [place] # (Auto) 0.7 (0.2-0.9) 10^3/u L Eos # (Auto) 0.4 (0.0-0.8) 10^3/u L Baso # (Auto) 0.0 (0.0-0.1) 10^3/u L Nucleated RBC % (a uto) 0 % Nucleated RBCs # 0.0 /100WBC Sodium 143 (136-145) mmol/L Potassium 3.9 (3.5-5.1) mmol/L Chloride 107 (98-107) mmol/L Carbon Dioxide 23 (22-29) mmol/L Anion Gap 16.9 (5-19) BUN 16 (8-23) mg/dL Creatinine 1.2 (0.7-1.2) mg/dL Glucose 112 (65-115) mg/dL Calculated Osmolal ity 293 (285-295) mOsm/k g Calcium 8.8 (8.5-10.5) mg/dL Total Bilirubin 0.2 (0.15-1.2) mg/dL AST 13 (0-40) U/L ALT 13 (0-41) U/L Alkaline Phosphata se 95 (40-130) IU/L Troponin T Baselin e 35 H (0-15) ng/L Troponin T 120 Min [place] (0-15) ng/L Delta Troponin T (0-10) ABS# NT-Pro-B Natriuret Pep 883 H (0-450) pg/mL Total Protein 6.8 (6.6-8.7) g/dL Albumin 4.1 (3.5-5.2) g/dL Globulin 2.7 (1.3-4.6) g/dL Lipase 38 (13-60) U/L 07/26/19 Range/Units 19:35 WBC (4.0-10.0) 10^3/ uL RBC (4.1-5.3) 10^6/u L Hgb (11.7-16.6) g/dL Hct (42.0-52.0) % MCV (80-94) fL MCH (28.0-34.0) pg MCHC (30.0-36.0) g/dL RDW (12.1-15.1) % Plt Count (130-400) 10^3/c mm MPV (7.4-10.4) fL Neut % (Auto) % Lymph % (Auto) % [place] % (Auto) % Eos % (Auto) % Baso % (Auto) % Neut # (Auto) (1.8-7.7) 10^3/u L Lymph # (Auto) (0.8-4.8) 10^3/u L [place] # (Auto) (0.2-0.9) 10^3/u L Eos # (Auto) (0.0-0.8) 10^3/u L Baso # (Auto) (0.0-0.1) 10^3/u L Nucleated RBC % (a uto) % Nucleated RBCs # /100WBC Sodium (136-145) mmol/L Potassium (3.5-5.1) mmol/L Chloride (98-107) mmol/L Carbon Dioxide (22-29) mmol/L Anion Gap (5-19) BUN (8-23) mg/dL Creatinine (0.7-1.2) mg/dL Glucose (65-115) mg/dL Calculated Osmolal ity (285-295) mOsm/k g Calcium (8.5-10.5) mg/dL Total Bilirubin (0.15-1.2) mg/dL AST (0-40) U/L ALT (0-41) U/L Alkaline Phosphata se (40-130) IU/L Troponin T Baselin e (0-15) ng/L Troponin T 120 Min [place] 34.80 H (0-15) ng/L Delta Troponin T -0.20 L (0-10) ABS# NT-Pro-B Natriuret Pep (0-450) pg/mL Total Protein (6.6-8.7) g/dL Albumin (3.5-5.2) g/dL Globulin (1.3-4.6) g/dL Lipase (13-60) U/L Imaging Data^: CXR: Radiologist's impression: [address] [address] XRay Report Signed Patient: Willie Ram #: [id number] : 1Acct#:[id number] Age/Sex: 78 / MADM Date: 07/26/19 Loc: ERRoom/Bed: Attending Dr: Ordering Provider/Ordering MD: [place] [facility] [place] Service: 07/26/19 Procedure(s): XR chest 1V portable [id number] Accession Number(s): [id number] Report Number: [id number] PROCEDURE INFORMATION: Exam: XR Chest, 1 View Exam date and time: 07/26/2019 5:32 PM Age: 78 years old Clinical indication: Chest pain; Type not specified; Patient HX: New onset c/p TECHNIQUE: Imaging protocol: XR of the chest Views: 1 view. COMPARISON: CTA Chest-Pulmonary Emb [id number] 11/18/2017 7:20 PM FINDINGS: Tubes, catheters and devices: Ventriculoperitoneal shunt. Lungs: No visible active interstitial or alveolar airspace disease. Pleural space: Unremarkable. No pleural effusion. No pneumothorax. Heart/Mediastinum: Cardiac structures and configuration reveal arterial sclerosis and coronary artery disease. Coronary artery stent. Bones/joints: Age-appropriate skeletal findings. XR/XR chest 1V portable [id number] IMPRESSION: Nonacute. Dictated By:Mehul Turner Signed By:Martinez Turner Date/Time:07/26/191804 DD/ 03 EKG Data^: EKG 1: Attestation: I personally reviewed and interpreted this EKG as follows: EKG interpretation date: 07/26/19 EKG interpretation time: 17:45 Prior EKG tracings: not available for review Interpretation: Atrial fibrillation. Heart rate [address] changes. EKG 2: Attestation: I personally reviewed and interpreted this EKG as follows: EKG interpretation date: 07/26/19 EKG interpretation time: 19:21 Prior EKG tracings: available for review Computer generated interpretation: Atrial fibrillation. Heart rate [address] changes. Unchanged from earlier today. Discharge Plan Discharge Patient Disposition: Home, Self-Care Clinical Impression: Chest pain Qualifiers: Chest pain type: unspecified Qualified Code(s): R07.9 - Chest pain, unspecified Condition: Stable Prescriptions: Continued tamsulosin [Flomax] 0.4 mg capsule 0.4 mg PO DAILY RF: 0 albuterol sulfate 2.5 mg/0.5 mL solution for nebulization 10 mg INHALATION Q4H PRN (Reason: Shortness of breathe) RF: 0 risperidone 0.5 mg tablet 0.5 mg PO BID RF: 0 melatonin 5 mg capsule 30 mg PO .HS RF: 0 ascorbate calcium (vitamin C) 500 mg tablet 500 mg PO DAILY RF: 0 Eliquis 5 mg tablet 5 mg PO BID 90 Days Qty: 180 RF: 1 furosemide 40 mg tablet 40 mg PO BID Qty: 180 RF: 1 potassium chloride 20 mEq tablet extended release 20 meq PO DAILY 90 Days Qty: 90 RF: 1 Nexium 40 mg capsule,delayed release(DR/EC) 40 mg PO BID Qty: 60 RF: 0 sucralfate 100 mg/mL suspension 1 g PO Q6H 30 Days Qty: 1200 RF: 2 Discharge Orders: Discharge Order (Routine); Ordered 07/26/19 Ordered By: Nicole Weiner Referrals: Ashley Medrano FNP [Primary Care Provider] - 1-3 days Patient Instructions: Chest Pain (ED) Activity Restrictions/Additional Instructions: Return for any new or worsening symptoms. Follow-up with your primary care provider within 3 days. Continue home medications. Discharge Date/Time: 07/26/19 21:38 Coding Level of Care Code ED Truck Body Builder for Chg Fwd Exam Comprehensive
[2019-07-26] MEDS: ipratropium-albuterol 3 mL Neb INHALATION (17:41)
[2019-07-26 17:42] VITALS: PULSE 81; RESP 20; O2SAT 98
--- NOTE | 2019-07-26 17:42 | PC.NURSE ---
Respiratory and registration at bedside. hooked patient up to the plumber gasfitter.
[2019-07-26 17:49] VITALS: PULSE 69
[2019-07-26 18:05] LABS: Basophils % 0.6 %; Eosinophils # 0.4 10^3/uL (0.0-0.8); Eosinophils % 5.8 %; Hematocrit 37.7 % (42.0-52.0); Hemoglobin 10.9 g/dL (11.7-16.6); Lymphocytes # 1.7 10^3/uL (0.8-4.8); Lymphocytes % 24.1 %; Mean Corpuscular HGB Conc 28.9 g/dL (30.0-36.0); Mean Corpuscular Hemoglobin 23.9 pg (28.0-34.0); Mean Corpuscular Volume 82.5 fL (80-94); Mean Platelet Volume 10.5 fL (7.4-10.4); Monocytes # 0.7 10^3/uL (0.2-0.9); Monocytes % 10.5 %; Neutrophils % 58.7 %; Nucleated Red Blood Cells % 0 %; Platelet Count 229 10^3/cmm (130-400); Red Blood Count 4.57 10^6/uL (4.1-5.3); Red Cell Distribution Width 17.5 % (12.1-15.1); White Blood Count 6.9 10^3/uL (4.0-10.0)
[2019-07-26] MEDS: lidocaine 2% viscous 15 ML, aluminum-mag hydrox-simethicon 30 ML, sucralfate oral liq 1 GM PO (18:25)
[2019-07-26 18:27] LABS: Troponin(5th) Baseline 35 ng/L (0-15)
[2019-07-26 18:36] LABS: Alanine Aminotransferase 13 U/L (0-41); Albumin Level 4.1 g/dL (3.5-5.2); Alkaline Phosphatase 95 IU/L (40-130); Anion Gap 16.9 (5-19); Aspartate Amino Transferase 13 U/L (0-40); Blood Urea Nitrogen 16 mg/dL (8-23); Calcium 8.8 mg/dL (8.5-10.5); Carbon Dioxide 23 mmol/L (22-29); Chloride 107 mmol/L (98-107); Creatinine Clr Calc Pharmacy 58.4603; Globulin 2.7 g/dL (1.3-4.6); Glucose 112 mg/dL (65-115); Lipase 38 U/L (13-60); NT Pro B Type Natriuretic Pept 883 pg/mL (0-450); Osmolality Calculated 293 mOsm/kg (285-295); Potassium 3.9 mmol/L (3.5-5.1); Sodium 143 mmol/L (136-145); Total Bilirubin 0.2 mg/dL (0.15-1.2); Total Protein 6.8 g/dL (6.6-8.7)
--- NOTE | 2019-07-26 19:30 | ECG_ITS ---
Measurements Intervals [place] Rate: 66 P: GA: 0 QRS: -12 QRSD: 110 T: 73 QT: 405 QTc: 426 ATRIAL FIBRILLATION LOW QRS VOLTAGE IN PRECORDIAL LEADS [QRS DEFLECTION < 1.0 mV IN CHEST LEADS] NONSPECIFIC T-WAVE ABNORMALITY ABNORMAL RHYTHM ECG Compared to ECG 04/06/2019 14:00:14 Ventricular premature complex(es) no longer present Aberrant conduction of supraventricular beat(s) no longer present Left-axis deviation no longer present T-wave abnormality still present Electronically Signed On 07-27-2019 21:09:07 CDT by Wilton Griffin M.D. [email or web address]
[2019-07-26 19:50] VITALS: BP 130/66; PULSE 67; RESP 19; O2SAT 94
[2019-07-26 21:37] VITALS: BP 133/69; PULSE 68; RESP 16; O2SAT 98
--- NOTE | 2019-07-26 23:30 | ECG_ITS ---
Measurements Intervals [place] Rate: 74 P: [place]: 0 QRS: -12 QRSD: 106 T: 71 QT: 396 QTc: 440 ATRIAL FIBRILLATION LOW QRS VOLTAGE IN PRECORDIAL LEADS [QRS DEFLECTION < 1.0 mV IN CHEST LEADS] NONSPECIFIC T-WAVE ABNORMALITY ABNORMAL RHYTHM ECG Compared to ECG 04/06/2019 14:00:14 Ventricular premature complex(es) no longer present Aberrant conduction of supraventricular beat(s) no longer present Left-axis deviation no longer present T-wave abnormality still present Electronically Signed On 07-27-2019 21:08:59 CDT by Wilton Griffin M.D. [email or web address]
== END 2019-07-26 21:38 | disposition home or self-care (01) ==
PROVIDERS: Emergency Provider Family Medicine; PCP Nurse Practitioner Family
DX: R07.9 Chest pain, unspecified (principal); Z79.01 Long term (current) use of anticoagulants; I48.91 Unspecified atrial fibrillation; Z85.01 Personal history of malignant neoplasm of esophagus; I11.0 Hypertensive heart disease with heart failure; I50.9 Heart failure, unspecified; J44.9 Chronic obstructive pulmonary disease, unspecified; Z86.73 Personal history of transient ischemic attack (TIA), and cerebral infarction without residual deficits; E11.9 Type 2 diabetes mellitus without complications; E78.5 Hyperlipidemia, unspecified; G31.83 Neurocognitive disorder with Lewy bodies; F02.80 Dementia in other diseases classified elsewhere, unspecified severity, without behavioral disturbance, psychotic disturbance, mood disturbance, and anxiety; Z87.891 Personal history of nicotine dependence
CPT/HCPCS: 12345; 71045; 80053; 83690; 83880; 84484; 85025; 93005; 94640; 99282; 99284

== ENCOUNTER 2019-08-31 15:08 | Emergency (ER) | payer MEDICARE, MEDICAID, SELFPAY ==
[2019-08-31 15:09] VITALS: BMI 28.5
--- NOTE | 2019-08-31 15:10 | ECG_ITS ---
[facility] Test Date: 2019-08-31 Pat Name: Willie Ram Department: Room: Gender: Male Branch Account Executive: : 1940 Requested By: Candy Rodriguez Order Number: [id number] MD: Alexandria Lowery M.D. Measurements Intervals [place] Rate: 79 P: [place]: -1 QRS: -22 QRSD: 113 T: 77 QT: 407 QTc: 467 Interpretive Statements ATRIAL FIBRILLATION LOW QRS VOLTAGE IN PRECORDIAL LEADS [QRS DEFLECTION < 1.0 mV IN CHEST LEADS] POSSIBLE LATERAL MYOCARDIAL INFARCTION , OF INDETERMINATE AGE [30 ms Q WAVE IN I/aVL/V5/V6] Compared to ECG 07/26/2019 19:21:09 Myocardial infarct finding now present T-wave abnormality no longer present Electronically Signed On 08-31-2019 22:03:40 CDT by Alexandria Lowery M.D. [email or web address]
--- NOTE | 2019-08-31 15:10 | XRR_ITS ---
PROCEDURE INFORMATION: Exam: XR Chest, 1 View Exam date and time: 08/31/2019 3:12 PM Age: 78 years old Clinical indication: Other: Weakness TECHNIQUE: Imaging protocol: XR of the chest Views: 1 view. COMPARISON: CR XR chest 1V portable [id number] 07/26/2019 5:48 PM FINDINGS: The lungs are clear of infiltrate. There are no pleural effusions or pneumothorax. The heart size and pulmonary vascularity are normal. A shunt catheter superimposes the left hemithorax and neck. XR/XR chest 1V portable [id number] IMPRESSION: No active disease.
[2019-08-31 15:14] VITALS: BP 116/67; PULSE 80; RESP 18; TEMP 36.9; O2SAT 95
--- NOTE | 2019-08-31 15:23 | ED_ITS ---
Documented by User: Candy Rodriguez MD 09/03/19 13:17 HPI - Weakness General: Chief complaint: Weakness Stated complaint: WEAKNESS Time Seen by Provider: 08/31/19 15:09 Source: patient and EMS History of Present Illness: HPI Narrative: 78-year-old that was brought in by EMS from his home where he lives with his for weakness. He has a history of dementia. He tells me he uses a cane and occasionally a walker and when I ask if he is weak all over he says no it is his left leg where he had remote history of surgery. He told the nurse before I entered the room that after he is up walking a while he feels like he might fall. He denies any pain to me fever no change in his chronic cough. Denies any vomiting or diarrhea. He does not know what year it is but I think this is baseline for him. Staff is very familiar with him and it seen him in know his family on previous visits Associated symptoms: Reports confusion (dementia); Denies chest pain, chills, easy bruising, fever(s), headache(s), nausea or vomiting Review of Systems General: Reports: 10 or more systems reviewed and unremarkable except in HPI and below Const: Denies: fever(s) or chills Eyes: Denies: change in vision ENMT: Denies: throat pain Card: Denies: chest pain Resp: Denies: dyspnea GI: Denies: abdominal pain, nausea, vomiting or change in bowel habits : Denies: difficulty urinating Musc: Reports: extremity pain and muscle weakness Skin/Breast: Denies: rash Neuro: Reports: confusion (dementia); Denies: headache(s) Psych: Denies: hopelessness or suicidal ideation Endo: Denies: polyuria Grant/Lymph: Denies: easy bruising or easy bleeding All/Imm: Denies: urticaria PFSH ED PFSH: Medical History (Updated 08/31/19 @ 18:09 by Jaci Leger) Anticoagulation adequate with anticoagulant therapy ASHD (arteriosclerotic heart disease) Atrial fibrillation was taken off anticoagulation due to GI bleed, has IVC filter Piper's esophagus BPH (benign prostatic hyperplasia) Carcinoma of esophagus radiation esophagitis CHF (congestive heart failure), NYHA class I COPD (chronic obstructive pulmonary disease) CVA (cerebral vascular accident) Diabetes Dyslipidemia (high LDL; low HDL) Essential hypertension Gait disturbance Lewy body dementia with behavioral disturbance NATALI (obstructive sleep apnea) Post laminectomy syndrome Pulmonary emboli Surgical History [place] filter in place History of esophagogastroduodenoscopy (EGD) (07/24/19) resolution of Grade D esophagitis, no evidence of carcinoma Previous back surgery S/P angioplasty with stent S/P appendectomy S/P hernia repair S/P tonsillectomy 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 Aicha Roche WOOD PATTERNMAKER APPRENTICE shunt revision Family History Father CAD (coronary artery disease) Mother CAD (coronary artery disease) Hypertension Sister CAD (coronary artery disease) Diabetes Family/Other Stroke Denies family history of Anesthesia complication Bleeding disorder Social History Smoking and tobacco status: former smoker Quit status (tobacco): has quit using tobacco Alcohol intake: former Physical Exam Const: COMMON NORMALS: no acute distress, alert and well nourished ORIENTATION/CONSCIOUSNESS: Yes oriented to person and Yes oriented to place HENMT: COMMON NORMALS: normocephalic and Normal external nose present HEAD & SCALP: normocephalic NOSE: Normal external nose present MOUTH: no trismus Eye: COMMON NORMALS: EOMs intact bilaterally and conjunctivae normal CONJU NCTIVA: Yes conjunctivae normal Neck/C-Spine: COMMON NORMALS: full ROM, no lymphadenopathy and supple CERVICAL SPINE: Yes cervical ROM normal Lymph: LYMPHATIC: no lymphadenopathy noted Resp: COMMON NORMALS: normal respiratory effort, No retractions, No use of accessory muscles and clear to auscultation bilaterally EFFORT & INSPECTION: Yes able to speak in complete sentences AUSCULTATION: clear to auscultation bilaterally Cardio: COMMON NORMALS: regular rate and regular rhythm RATE: regular rate RHYTHM: regular rhythm GI: COMMON NORMALS: Normal to inspection, nondistended, normoactive bowel sounds present, Soft to palpation, non-tender and no masses INSPECTION: Yes normal to inspection AUSCULTATION: Yes normoactive bowel sounds PALPATION: Yes Soft to palpation, No Guarding due to palpation present (GI) and No Rigid due to palpation Back/Pelvis: OTHER: Normal range of motion Extremity: GENERAL: Yes normal exam except as noted OTHER: 1 plus pitting edema bilaterally Neuro: COMMON NORMALS: CN's II-XII intact bilaterally SENSO RIUM/ORIENTATION: Yes alert, Yes oriented to person and Yes oriented to place SPEECH: speech normal Psych: COMMON NORMALS: mental status grossly normal Skin: COMMON NORMALS: no rashes or lesions noted GENERAL SKIN EXAM: no rashes or lesions noted Course Vital Signs: Vital signs: Vital Signs Temperature 98.5 F 08/31/19 15:14 Pulse Rate 67 08/31/19 18:18 Respiratory Rate 16 08/31/19 18:18 Blood Pressure 138/62 08/31/19 18:18 Pulse Oximetry 98 08/31/19 18:18 MDM - Weakness MDM Narrative: Medical decision making narrative: 78-year-old male with dementia complains of weakness. From his story it actually sounds more like he is got chronic issues with his left lower leg which she had surgery on in the remote past and after a while of standing and with his cane or walker his leg gives out. He is unaccompanied was brought in by EMS and generalized weakness work-up was started. His troponin was elevated at 35 but previous troponins have also been around 3035. Will check second troponin and if no significant change can be DC'd home. Lab Data: Attestation: I reviewed the patient's lab results. Labs: Lab Results 08/31/19 08/31/19 08/31/19 Range/Units 15:25 15:25 15:25 WBC 5.8 (4.0-10.0) 10^3/ uL RBC 4.76 (4.1-5.3) 10^6/u L Hgb 11.6 L (11.7-16.6) g/dL Hct 40.3 L (42.0-52.0) % MCV 84.7 (80-94) fL MCH 24.4 L (28.0-34.0) pg MCHC 28.8 L (30.0-36.0) g/dL RDW 17.7 H (12.1-15.1) % Plt Count 235 (130-400) 10^3/c mm MPV 10.6 H (7.4-10.4) fL Neut % (Auto) 62.0 % Lymph % (Auto) 19.7 % [place] % (Auto) 11.1 % Eos % (Auto) 6.5 % Baso % (Auto) 0.5 % Neut # (Auto) 3.61 (1.8-7.7) 10^3/u L Lymph # (Auto) 1.2 (0.8-4.8) 10^3/u L [place] # (Auto) 0.7 (0.2-0.9) 10^3/u L Eos # (Auto) 0.4 (0.0-0.8) 10^3/u L Baso # (Auto) 0.0 (0.0-0.1) 10^3/u L Nucleated RBC % (a uto) 0 % Nucleated RBCs # 0.0 /100WBC Sodium 141 (136-145) mmol/L Potassium 3.6 (3.5-5.1) mmol/L Chloride 106 (98-107) mmol/L Carbon Dioxide 22 (22-29) mmol/L Anion Gap 16.6 (5-19) BUN 13 (8-23) mg/dL Creatinine 1.1 (0.7-1.2) mg/dL Glucose 104 (65-115) mg/dL Calculated Osmolal ity 288 (285-295) mOsm/k g Lactate 1.8 (0.5-2.2) mmol/L Calcium 8.7 (8.5-10.5) mg/dL Total Bilirubin 0.2 (0.15-1.2) mg/dL AST 14 (0-40) U/L ALT 12 (0-41) U/L Alkaline Phosphata se 94 (40-130) IU/L Troponin T Gen 5 n g/L (0-15) ng/L Total Protein 7.0 (6.6-8.7) g/dL Albumin 4.2 (3.5-5.2) g/dL Globulin 2.8 (1.3-4.6) g/dL Urine Color (Yellow) Urine Appearance (CLEAR) Urine pH (5-7) Ur Specific Gravit y (1.005-1.030) Urine Protein (Negative) Urine Glucose (UA) (Normal) Urine Ketones (Negative) Urine Blood (Negative) Urine Nitrate (Negative) Urine Bilirubin (NEGATIVE) Urine Urobilinogen (Negative) mg/dL Ur Leukocyte Erica ase (Negative) 08/31/19 08/31/19 08/31/19 Range/Units 15:25 15:33 17:20 WBC (4.0-10.0) 10^3/ uL RBC (4.1-5.3) 10^6/u L Hgb (11.7-16.6) g/dL Hct (42.0-52.0) % MCV (80-94) fL MCH (28.0-34.0) pg MCHC (30.0-36.0) g/dL RDW (12.1-15.1) % Plt Count (130-400) 10^3/c mm MPV (7.4-10.4) fL Neut % (Auto) % Lymph % (Auto) % [place] % (Auto) % Eos % (Auto) % Baso % (Auto) % Neut # (Auto) (1.8-7.7) 10^3/u L Lymph # (Auto) (0.8-4.8) 10^3/u L [place] # (Auto) (0.2-0.9) 10^3/u L Eos # (Auto) (0.0-0.8) 10^3/u L Baso # (Auto) (0.0-0.1) 10^3/u L Nucleated RBC % (a uto) % Nucleated RBCs # /100WBC Sodium (136-145) mmol/L Potassium (3.5-5.1) mmol/L Chloride (98-107) mmol/L Carbon Dioxide (22-29) mmol/L Anion Gap (5-19) BUN (8-23) mg/dL Creatinine (0.7-1.2) mg/dL Glucose (65-115) mg/dL Calculated Osmolal ity (285-295) mOsm/k g Lactate (0.5-2.2) mmol/L Calcium (8.5-10.5) mg/dL Total Bilirubin (0.15-1.2) mg/dL AST (0-40) U/L ALT (0-41) U/L Alkaline Phosphata se (40-130) IU/L Troponin T Gen 5 n g/L 35 H 37 H (0-15) ng/L Total Protein (6.6-8.7) g/dL Albumin (3.5-5.2) g/dL Globulin (1.3-4.6) g/dL Urine Color Straw (Yellow) Urine Appearance Clear (CLEAR) Urine pH 5 (5-7) Ur Specific Gravit y 1.020 (1.005-1.030) Urine Protein Neg (Negative) Urine Glucose (UA) Norm (Normal) Urine Ketones Negative (Negative) Urine Blood Neg (Negative) Urine Nitrate Negative (Negative) Urine Bilirubin Neg (NEGATIVE) Urine Urobilinogen Norm (Negative) mg/dL Ur Leukocyte Erica ase Negative (Negative) Imaging Data^: CXR: Attestation: I personally reviewed and interpreted this imaging study as follows: My impression: NAD EKG Data^: EKG 1: Attestation: I personally reviewed and interpreted this EKG as follows: EKG interpretation date: 08/31/19 EKG interpretation time: 15:22 Interpretation: A. fib rate controlled with rate of [address] changes no acute ST elevation Discharge Plan Discharge Patient Disposition: Home, Self-Care Clinical Impression: Dehydration Heat exhaustion Qualifiers: Encounter type: initial encounter Qualified Code(s): T67.5XXA - Heat exhaustion, unspecified, initial encounter Condition: Stable Prescriptions: No Action tamsulosin [Flomax] 0.4 mg capsule 0.4 mg PO DAILY RF: 0 albuterol sulfate 2.5 mg/0.5 mL solution for nebulization 10 mg INHALATION Q4H PRN (Reason: Shortness of breathe) RF: 0 risperidone 0.5 mg tablet 0.5 mg PO BID RF: 0 melatonin 5 mg capsule 30 mg PO .HS RF: 0 ascorbate calcium (vitamin C) 500 mg tablet 500 mg PO DAILY RF: 0 Eliquis 5 mg tablet 5 mg PO BID 90 Days Qty: 180 RF: 1 furosemide 40 mg tablet 40 mg PO BID Qty: 180 RF: 1 potassium chloride 20 mEq tablet extended release 20 meq PO DAILY 90 Days Qty: 90 RF: 1 Nexium 40 mg capsule,delayed release(DR/EC) 40 mg PO BID Qty: 60 RF: 0 sucralfate 100 mg/mL suspension 1 g PO Q6H 30 Days Qty: 1200 RF: 2 Discharge Orders: Discharge Order (Routine); Ordered 08/31/19 Ordered By: Jaci Leger Referrals: Ashley Medrano FNP [Primary Care Provider] - 1-3 days Discharge Diet: Advance as tolerated Discharge Activity: Resume usual activity Patient Instructions: Dehydration (ED), Heat Exhaustion (ED) Activity Restrictions/Additional Instructions: Please return to the ER immediately for any of the signs or symptoms listed on your discharge instruction sheets, worsening/changing of your symptoms, you are not getting better as quickly as expected, or for ANY other cause or concerns. Discharge Date/Time: 08/31/19 18:21 Sign Out Sign Out Data: Patient Sign Out occurred on 08/31/19 at 17:15. Patient's care was discussed, and care was transferred from Candy Rodriguez MD to Jaci Leger. Sign Out Comment: signed out Last updated by Candy Rodriguez MD at 08/31/19 17:04 Coding Level of Care Code ED Plateman for Chg Fwd Exam Comprehensive Documented by User: Jaci Leger 08/31/19 18:14 HPI - Weakness General: Chief complaint: Weakness Stated complaint: WEAKNESS Time Seen by Provider: 08/31/19 15:09 [facility] ED PFSH: Medical History (Updated 08/31/19 @ 18:09 by Jaci Leger) Anticoagulation adequate with anticoagulant therapy ASHD (arteriosclerotic heart disease) Atrial fibrillation was taken off anticoagulation due to GI bleed, has IVC filter Piper's esophagus BPH (benign prostatic hyperplasia) Carcinoma of esophagus radiation esophagitis CHF (congestive heart failure), NYHA class I COPD (chronic obstructive pulmonary disease) CVA (cerebral vascular accident) Diabetes Dyslipidemia (high LDL; low HDL) Essential hypertension Gait disturbance Lewy body dementia with behavioral disturbance NATALI (obstructive sleep apnea) Post laminectomy syndrome Pulmonary emboli Surgical History [place] filter in place History of esophagogastroduodenoscopy (EGD) (07/24/19) resolution of Grade D esophagitis, no evidence of carcinoma Previous back surgery S/P angioplasty with stent S/P appendectomy S/P hernia repair S/P tonsillectomy 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 Aicha Roche WOOD PATTERNMAKER APPRENTICE shunt revision Family History Father CAD (coronary artery disease) Mother CAD (coronary artery disease) Hypertension Sister CAD (coronary artery disease) Diabetes Family/Other Stroke Denies family history of Anesthesia complication Bleeding disorder Social History Smoking and tobacco status: former smoker Quit status (tobacco): has quit using tobacco Alcohol intake: former Course Vital Signs: Vital signs: Vital Signs Temperature 98.5 F 08/31/19 15:14 Pulse Rate 67 08/31/19 18:18 Respiratory Rate 16 08/31/19 18:18 Blood Pressure 138/62 08/31/19 18:18 Pulse Oximetry 98 08/31/19 18:18 MDM - Weakness MDM Narrative: Medical decision making narrative: 1806 -Case inherited by me at change of shift from Dr. Rodriguez. Please see her notes for her history, physical exam and medical decision-making notes. I have the benefit of Willie's being here. She states that he is more globally weak and has been the past 2 days. Her concern is that their air conditioning is out and they have made a complaint to their landlord but it has not been fixed. It is central air. I have tried to work with them and given them avenues to make a landlord complaint and they are going to do so and continue to insist upon the air conditioner being fixed as soon as possible. Willie does not want to be here any longer. His supports taking him home. At this time they understand I see no evidence of any acute life-threatening event but they do agree to return immediately should his symptoms of weakness return, or he develops any other new symptoms. Willie's does believe that they would be able to get in a window air conditioning unit that would help keep him cool in the bedroom until their central air conditioner can be fixed. Lab Data: Attestation: I reviewed the patient's lab results. Labs: Lab Results 08/31/19 08/31/19 08/31/19 Range/Units 15:25 15:25 15:25 WBC 5.8 (4.0-10.0) 10^3/ uL RBC 4.76 (4.1-5.3) 10^6/u L Hgb 11.6 L (11.7-16.6) g/dL Hct 40.3 L (42.0-52.0) % MCV 84.7 (80-94) fL MCH 24.4 L (28.0-34.0) pg MCHC 28.8 L (30.0-36.0) g/dL RDW 17.7 H (12.1-15.1) % Plt Count 235 (130-400) 10^3/c mm MPV 10.6 H (7.4-10.4) fL Neut % (Auto) 62.0 % Lymph % (Auto) 19.7 % [place] % (Auto) 11.1 % Eos % (Auto) 6.5 % Baso % (Auto) 0.5 % Neut # (Auto) 3.61 (1.8-7.7) 10^3/u L Lymph # (Auto) 1.2 (0.8-4.8) 10^3/u L [place] # (Auto) 0.7 (0.2-0.9) 10^3/u L Eos # (Auto) 0.4 (0.0-0.8) 10^3/u L Baso # (Auto) 0.0 (0.0-0.1) 10^3/u L Nucleated RBC % (a uto) 0 % Nucleated RBCs # 0.0 /100WBC Sodium 141 (136-145) mmol/L Potassium 3.6 (3.5-5.1) mmol/L Chloride 106 (98-107) mmol/L Carbon Dioxide 22 (22-29) mmol/L Anion Gap 16.6 (5-19) BUN 13 (8-23) mg/dL Creatinine 1.1 (0.7-1.2) mg/dL Glucose 104 (65-115) mg/dL Calculated Osmolal ity 288 (285-295) mOsm/k g Lactate 1.8 (0.5-2.2) mmol/L Calcium 8.7 (8.5-10.5) mg/dL Total Bilirubin 0.2 (0.15-1.2) mg/dL AST 14 (0-40) U/L ALT 12 (0-41) U/L Alkaline Phosphata se 94 (40-130) IU/L Troponin T Gen 5 n g/L (0-15) ng/L Total Protein 7.0 (6.6-8.7) g/dL Albumin 4.2 (3.5-5.2) g/dL Globulin 2.8 (1.3-4.6) g/dL Urine Color (Yellow) Urine Appearance (CLEAR) Urine pH (5-7) Ur Specific Gravit y (1.005-1.030) Urine Protein (Negative) Urine Glucose (UA) (Normal) Urine Ketones (Negative) Urine Blood (Negative) Urine Nitrate (Negative) Urine Bilirubin (NEGATIVE) Urine Urobilinogen (Negative) mg/dL Ur Leukocyte Erica ase (Negative) 08/31/19 08/31/19 08/31/19 Range/Units 15:25 15:33 17:20 WBC (4.0-10.0) 10^3/ uL RBC (4.1-5.3) 10^6/u L Hgb (11.7-16.6) g/dL Hct (42.0-52.0) % MCV (80-94) fL MCH (28.0-34.0) pg MCHC (30.0-36.0) g/dL RDW (12.1-15.1) % Plt Count (130-400) 10^3/c mm MPV (7.4-10.4) fL Neut % (Auto) % Lymph % (Auto) % [place] % (Auto) % Eos % (Auto) % Baso % (Auto) % Neut # (Auto) (1.8-7.7) 10^3/u L Lymph # (Auto) (0.8-4.8) 10^3/u L [place] # (Auto) (0.2-0.9) 10^3/u L Eos # (Auto) (0.0-0.8) 10^3/u L Baso # (Auto) (0.0-0.1) 10^3/u L Nucleated RBC % (a uto) % Nucleated RBCs # /100WBC Sodium (136-145) mmol/L Potassium (3.5-5.1) mmol/L Chloride (98-107) mmol/L Carbon Dioxide (22-29) mmol/L Anion Gap (5-19) BUN (8-23) mg/dL Creatinine (0.7-1.2) mg/dL Glucose (65-115) mg/dL Calculated Osmolal ity (285-295) mOsm/k g Lactate (0.5-2.2) mmol/L Calcium (8.5-10.5) mg/dL Total Bilirubin (0.15-1.2) mg/dL AST (0-40) U/L ALT (0-41) U/L Alkaline Phosphata se (40-130) IU/L Troponin T Gen 5 n g/L 35 H 37 H (0-15) ng/L Total Protein (6.6-8.7) g/dL Albumin (3.5-5.2) g/dL Globulin (1.3-4.6) g/dL Urine Color Straw (Yellow) Urine Appearance Clear (CLEAR) Urine pH 5 (5-7) Ur Specific Gravit y 1.020 (1.005-1.030) Urine Protein Neg (Negative) Urine Glucose (UA) Norm (Normal) Urine Ketones Negative (Negative) Urine Blood Neg (Negative) Urine Nitrate Negative (Negative) Urine Bilirubin Neg (NEGATIVE) Urine Urobilinogen Norm (Negative) mg/dL Ur Leukocyte Erica ase Negative (Negative) Discharge Plan Discharge Patient Disposition: Home, Self-Care Clinical Impression: Dehydration Heat exhaustion Qualifiers: Encounter type: initial encounter Qualified Code(s): T67.5XXA - Heat exhaustion, unspecified, initial encounter Condition: Stable Prescriptions: No Action tamsulosin [Flomax] 0.4 mg capsule 0.4 mg PO DAILY RF: 0 albuterol sulfate 2.5 mg/0.5 mL solution for nebulization 10 mg INHALATION Q4H PRN (Reason: Shortness of breathe) RF: 0 risperidone 0.5 mg tablet 0.5 mg PO BID RF: 0 melatonin 5 mg capsule 30 mg PO .HS RF: 0 ascorbate calcium (vitamin C) 500 mg tablet 500 mg PO DAILY RF: 0 Eliquis 5 mg tablet 5 mg PO BID 90 Days Qty: 180 RF: 1 furosemide 40 mg tablet 40 mg PO BID Qty: 180 RF: 1 potassium chloride 20 mEq tablet extended release 20 meq PO DAILY 90 Days Qty: 90 RF: 1 Nexium 40 mg capsule,delayed release(DR/EC) 40 mg PO BID Qty: 60 RF: 0 sucralfate 100 mg/mL suspension 1 g PO Q6H 30 Days Qty: 1200 RF: 2 Discharge Orders: Discharge Order (Routine); Ordered 08/31/19 Ordered By: Jaci Leger Referrals: Ashley Medrano FNP [Primary Care Provider] - 1-3 days Discharge Diet: Advance as tolerated Discharge Activity: Resume usual activity Patient Instructions: Dehydration (ED), Heat Exhaustion (ED) Activity Restrictions/Additional Instructions: Please return to the ER immediately for any of the signs or symptoms listed on your discharge instruction sheets, worsening/changing of your symptoms, you are not getting better as quickly as expected, or for ANY other cause or concerns. Discharge Date/Time: 08/31/19 18:21 Sign Out Sign Out Data: Patient Sign Out occurred on 08/31/19 at 17:15. Patient's care was discussed, and care was transferred from Candy Rodriguez MD to Jaci Leger. Sign Out Comment: signed out Last updated by Candy Rodriguez MD at 08/31/19 17:04 Coding Level of Care Code ED Plateman for Chg Fwd Exam Comprehensive
[2019-08-31 15:34] LABS: Basophils % 0.5 %; Eosinophils # 0.4 10^3/uL (0.0-0.8); Eosinophils % 6.5 %; Hematocrit 40.3 % (42.0-52.0); Hemoglobin 11.6 g/dL (11.7-16.6); Lymphocytes # 1.2 10^3/uL (0.8-4.8); Lymphocytes % 19.7 %; Mean Corpuscular HGB Conc 28.8 g/dL (30.0-36.0); Mean Corpuscular Hemoglobin 24.4 pg (28.0-34.0); Mean Corpuscular Volume 84.7 fL (80-94); Mean Platelet Volume 10.6 fL (7.4-10.4); Monocytes # 0.7 10^3/uL (0.2-0.9); Monocytes % 11.1 %; Neutrophils # 3.61 10^3/uL (1.8-7.7); Nucleated Red Blood Cells % 0 %; Platelet Count 235 10^3/cmm (130-400); Red Blood Count 4.76 10^6/uL (4.1-5.3); Red Cell Distribution Width 17.7 % (12.1-15.1); White Blood Count 5.8 10^3/uL (4.0-10.0)
[2019-08-31 15:52] LABS: Lactate (Lactic Acid level) 1.8 mmol/L (0.5-2.2)
[2019-08-31 15:54] LABS: Alanine Aminotransferase 12 U/L (0-41); Albumin Level 4.2 g/dL (3.5-5.2); Alkaline Phosphatase 94 IU/L (40-130); Anion Gap 16.6 (5-19); Aspartate Amino Transferase 14 U/L (0-40); Blood Urea Nitrogen 13 mg/dL (8-23); Calcium 8.7 mg/dL (8.5-10.5); Carbon Dioxide 22 mmol/L (22-29); Chloride 106 mmol/L (98-107); Globulin 2.8 g/dL (1.3-4.6); Glucose 104 mg/dL (65-115); Osmolality Calculated 288 mOsm/kg (285-295); Potassium 3.6 mmol/L (3.5-5.1); Sodium 141 mmol/L (136-145); Total Bilirubin 0.2 mg/dL (0.15-1.2)
[2019-08-31 15:55] LABS: Troponin T (5th) Once 35 ng/L (0-15)
[2019-08-31 16:17] LABS: Add Urine Microscopic? NO
[2019-08-31 16:25] LABS: Bilirubin Urine Neg (NEGATIVE); Blood Urine Neg (Negative); Glucose Urine UA Norm (Normal); Ketones Urine Negative (Negative); Leukocyte Esterase Urine Negative (Negative); Nitrate Urine Negative (Negative); Protein Urine Neg (Negative); Urine Appearance Clear (CLEAR); Urine Color Straw (Yellow); Urobilinogen Urine Norm (Negative); pH Urine 5 (5-7)
[2019-08-31 16:33] VITALS: BP 124/60; PULSE 76; RESP 18; O2SAT 95
[2019-08-31 17:49] LABS: Troponin T (5th) Once 37 ng/L (0-15)
[2019-08-31 18:18] VITALS: BP 138/62; PULSE 67; RESP 16; O2SAT 98
== END 2019-08-31 18:21 | disposition home or self-care (01) ==
PROVIDERS: Emergency Medicine; Emergency Provider Emergency Medicine; PCP Nurse Practitioner Family
DX: T67.5XXA Heat exhaustion, unspecified, initial encounter (principal); X30.XXXA Exposure to excessive natural heat, initial encounter; E86.0 Dehydration; Z79.01 Long term (current) use of anticoagulants; I48.91 Unspecified atrial fibrillation; I11.0 Hypertensive heart disease with heart failure; I50.9 Heart failure, unspecified; J44.9 Chronic obstructive pulmonary disease, unspecified; Z86.73 Personal history of transient ischemic attack (TIA), and cerebral infarction without residual deficits; E11.9 Type 2 diabetes mellitus without complications; E78.5 Hyperlipidemia, unspecified; G31.83 Neurocognitive disorder with Lewy bodies; F02.80 Dementia in other diseases classified elsewhere, unspecified severity, without behavioral disturbance, psychotic disturbance, mood disturbance, and anxiety; Z87.891 Personal history of nicotine dependence
CPT/HCPCS: 12345; 36415; 71045; 80053; 81003; 83605; 84484; 85025; 93005; 99283

== ENCOUNTER 2019-09-19 12:52 | Emergency (ER) | payer MEDICARE, MEDICAID, SELFPAY ==
[2019-09-19] VITALS (8 sets, daily range): BP systolic 101–146; BP diastolic 51–78; PULSE 51–78; RESP 13–23; O2SAT 92–98; BMI 27.8
--- NOTE | 2019-09-19 12:56 | XRR_ITS ---
PROCEDURE INFORMATION: Exam: XR Chest, 1 View Exam date and time: 09/19/2019 12:57 PM Age: 78 years old Clinical indication: Chest pain; Type not specified; Additional info: Cp TECHNIQUE: Imaging protocol: XR of the chest Views: 1 view. COMPARISON: CR (CHEST, ) 08/31/2019 3:31 PM FINDINGS: Lungs: Unremarkable. No consolidation. Pleural space: Unremarkable. No pleural effusion. No pneumothorax. Heart/Mediastinum: Unremarkable. No cardiomegaly. Bones/joints: Unremarkable. XR/XR chest 1V portable [id number] IMPRESSION: No acute findings.
--- NOTE | 2019-09-19 12:56 | ECG_ITS ---
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 Measurements Intervals [place] Rate: 66 P: IL: -1 QRS: -5 QRSD: 88 T: 28 QT: 420 QTc: 443 Interpretive Statements ATRIAL FIBRILLATION LOW QRS VOLTAGE IN PRECORDIAL LEADS [QRS DEFLECTION < 1.0 mV IN CHEST LEADS] POSSIBLE RIGHT VENTRICULAR CONDUCTION DELAY [RSR (QR) IN V1/V2] NONSPECIFIC ST & T-WAVE ABNORMALITY ABNORMAL RHYTHM ECG INTERPRETATION BASED ON A DEFAULT AGE OF 40 YEARS Compared to ECG 08/31/2019 15:28:55 T-wave abnormality now present Myocardial infarct finding no longer present Electronically Signed On 09-19-2019 18:06:53 CDT by Sunil Diane M.D. [email or web address]
--- NOTE | 2019-09-19 12:59 | ED_ITS ---
HPI - Chest Pain General: Chief Complaint: Chest Pain Stated Complaint: CP, SOB Time Seen by Provider: 09/19/19 12:53 Source: patient and EMS Mode of arrival: EMS Limitations: no limitations History of Present Illness: HPI narrative: Willie is a 78-year-old male who is well-known to the ER states he is been having chest pain over the last day. He states pain which pressure type pain and is now resolved. Patient has been seen in the ER multiple times for chest pain. He denies any shortness of breath or fever. He denies any vomiting or nausea. complaint: chest pain Onset (ago): hour(s) Timing of current episode: episodic Prior episodes: Yes Onset: during rest Pain location: substernal Pain radiation: none Severity: mild Quality: aching Relieving factors: nitroglycerin Exacerbating factors: nothing Associated symptoms: Deny abdominal pain, dyspnea, fever(s), nausea or vomiting Review of Systems Const: Denies: fever(s), chills, body aches or change in appetite Eyes: Denies: blurry vision or eye discomfort ENMT: Denies: throat pain or dental pain Card: Reports: chest pain Resp: Denies: dyspnea GI: Denies: abdominal pain, nausea, vomiting or diarrhea : Denies: dysuria Musc: Denies: neck pain or back pain Skin/Breast: Denies: rash Neuro: Denies: headache(s) Psych: Denies: depression Grant/Lymph: Denies: easy bruising All/Imm: Denies: urticaria PFSH ED PFSH: Medical History Anticoagulation adequate with anticoagulant therapy ASHD (arteriosclerotic heart disease) Atrial fibrillation was taken off anticoagulation due to GI bleed, has IVC filter Piper's esophagus BPH (benign prostatic hyperplasia) Carcinoma of esophagus radiation esophagitis CHF (congestive heart failure), NYHA class I COPD (chronic obstructive pulmonary disease) CVA (cerebral vascular accident) Diabetes Dyslipidemia (high LDL; low HDL) Essential hypertension Gait disturbance Lewy body dementia with behavioral disturbance NATALI (obstructive sleep apnea) Post laminectomy syndrome Pulmonary emboli Surgical History Trip filter in place History of esophagogastroduodenoscopy (EGD) (07/24/19) resolution of Grade D esophagitis, no evidence of carcinoma Previous back surgery S/P angioplasty with stent S/P appendectomy S/P hernia repair S/P tonsillectomy APPLICATION SUPPORT ANALYST (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 Aicha Roche APPLICATION SUPPORT ANALYST shunt revision Family History Father CAD (coronary artery disease) Mother CAD (coronary artery disease) Hypertension Sister CAD (coronary artery disease) Diabetes Family/Other Stroke Denies family history of Anesthesia complication Bleeding disorder Social History Smoking and tobacco status: former smoker Quit status (tobacco): has quit using tobacco Alcohol intake: former Physical Exam Const: COMMON NORMALS: no acute distress, patient oriented x3 and healthy appearing HENMT: COMMON NORMALS: normocephalic and atraumatic HEAD & SCALP: normocephalic and atraumatic Eye: COMMON NORMALS: Equal, round and reactive pupils present and EOMs intact bilaterally PUPIL: Yes Equal, round and reactive pupils present Neck/C-Spine: COMMON NORMALS: full ROM and supple Chest: COMMONS NORMALS: normal inspection of the chest and normal palpation of entire chest wall Resp: COMMON NORMALS: normal respiratory effort, No retractions, No use of accessory muscles and clear to auscultation bilaterally AUSCULTATION: clear to auscultation bilaterally Cardio: COMMON NORMALS: regular rate, regular rhythm and No murmurs present (Cardio) RATE: regular rate RHYTHM: regular rhythm GI: COMMON NORMALS: Normal to inspection, nondistended, normoactive bowel sounds present, Soft to palpation, non-tender and no masses PALPATION: Yes Soft to palpation Extremity: COMMON NORMALS: normal to inspection and full ROM Neuro: COMMON NORMALS: patient oriented x3, moves all extremities and no focal motor deficits Psych: COMMON NORMALS: mental status grossly normal, Normal thought process present and cooperative THOUGHT PROCESS: Normal thought process present Skin: COMMON NORMALS: no rashes or lesions noted and no wounds GENERAL SKIN EXAM: no rashes or lesions noted Course Vital Signs: Vital signs: Vital Signs Pulse Rate 78 09/19/19 16:00 Respiratory Rate 17 09/19/19 16:00 Blood Pressure 146/77 09/19/19 16:00 Pulse Oximetry 98 08/07/20 16:00 MDM - Chest Pain MDM Narrative: Medical decision making narrative: Willie presents here with chest pain that is atypical in nature. Patient's peak troponin had a delta less than 10 and is negative. EKGs here shows chronic A. fib. Patient is stable for discharge is to follow-up with his regulatory assistant. Patient is return if worsening. Patient understands and agrees to plan. Lab Data: Labs: Lab Results 09/19/19 09/19/19 09/19/19 Range/Units 13:51 13:51 13:51 WBC 6.8 (4.0-10.0) 10^3/ uL RBC 4.60 (4.1-5.3) 10^6/u L Hgb 11.3 L (11.7-16.6) g/dL Hct 37.7 L (42.0-52.0) % MCV 82.0 (80-94) fL MCH 24.6 L (28.0-34.0) pg MCHC 30.0 (30.0-36.0) g/dL RDW 16.9 H (12.1-15.1) % Plt Count 248 (130-400) 10^3/c mm MPV 10.1 (7.4-10.4) fL Neut % (Auto) 64.2 % Lymph % (Auto) 17.3 % Simpson % (Auto) 9.4 % Eos % (Auto) 8.2 % Baso % (Auto) 0.6 % Neut # (Auto) 4.40 (1.8-7.7) 10^3/u L Lymph # (Auto) 1.2 (0.8-4.8) 10^3/u L Simpson # (Auto) 0.6 (0.2-0.9) 10^3/u L Eos # (Auto) 0.6 (0.0-0.8) 10^3/u L Baso # (Auto) 0.0 (0.0-0.1) 10^3/u L Nucleated RBC % (a uto) 0 % Nucleated RBCs # 0.0 /100WBC Sodium 138 (136-145) mmol/L Potassium 3.5 (3.5-5.1) mmol/L Chloride 103 (98-107) mmol/L Carbon Dioxide 28 (22-29) mmol/L Anion Gap 10.5 (5-19) BUN 10 (8-23) mg/dL Creatinine 1.2 (0.7-1.2) mg/dL GFR Calculation Not Reportable Glucose 97 (65-115) mg/dL Calculated Osmolal ity 282 L (285-295) mOsm/k g Calcium 9.0 (8.5-10.5) mg/dL Total Bilirubin 0.2 (0.15-1.2) mg/dL AST 18 (0-40) U/L ALT 12 (0-41) U/L Alkaline Phosphata se 95 (40-130) IU/L Troponin T Baselin e 38 H (0-15) ng/L Troponin T 120 Min [place] (0-15) ng/L Delta Troponin T (0-10) ABS# Total Protein 6.2 L (6.6-8.7) g/dL Albumin 4.1 (3.5-5.2) g/dL Globulin 2.1 (1.3-4.6) g/dL 09/19/19 Range/Units 15:55 WBC (4.0-10.0) 10^3/ uL RBC (4.1-5.3) 10^6/u L Hgb (11.7-16.6) g/dL Hct (42.0-52.0) % MCV (80-94) fL MCH (28.0-34.0) pg MCHC (30.0-36.0) g/dL RDW (12.1-15.1) % Plt Count (130-400) 10^3/c mm MPV (7.4-10.4) fL Neut % (Auto) % Lymph % (Auto) % Simpson % (Auto) % Eos % (Auto) % Baso % (Auto) % Neut # (Auto) (1.8-7.7) 10^3/u L Lymph # (Auto) (0.8-4.8) 10^3/u L Simpson # (Auto) (0.2-0.9) 10^3/u L Eos # (Auto) (0.0-0.8) 10^3/u L Baso # (Auto) (0.0-0.1) 10^3/u L Nucleated RBC % (a uto) % Nucleated RBCs # /100WBC Sodium (136-145) mmol/L Potassium (3.5-5.1) mmol/L Chloride (98-107) mmol/L Carbon Dioxide (22-29) mmol/L Anion Gap (5-19) BUN (8-23) mg/dL Creatinine (0.7-1.2) mg/dL GFR Calculation Glucose (65-115) mg/dL Calculated Osmolal ity (285-295) mOsm/k g Calcium (8.5-10.5) mg/dL Total Bilirubin (0.15-1.2) mg/dL AST (0-40) U/L ALT (0-41) U/L Alkaline Phosphata se (40-130) IU/L Troponin T Baselin e (0-15) ng/L Troponin T 120 Min [place] 40.72 H (0-15) ng/L Delta Troponin T 2.72 (0-10) ABS# Total Protein (6.6-8.7) g/dL Albumin (3.5-5.2) g/dL Globulin (1.3-4.6) g/dL Imaging Data^: CXR: Attestation: I personally reviewed and interpreted this imaging study as follows: Radiologist's impression: Reason: cp [address] [address] XRay Report Signed Patient: Willie Ram Unit #: [id number] : 1940 Age/Sex: 78 / M ADM Date: 09/19/19 Loc: ER Room/Bed: Attending Dr: Ordering Provider/Ordering MD: Leola Sequeira MD Date of Service: 09/19/19 Procedure(s): XR chest 1V portable [id number] Accession Number(s): [id number] Report Number: [id number] PROCEDURE INFORMATION: Exam: XR Chest, 1 View Exam date and time: 09/19/2019 12:57 PM Age: 78 years old Clinical indication: Chest pain; Type not specified; Additional info: Cp TECHNIQUE: Imaging protocol: XR of the chest Views: 1 view. COMPARISON: CR (CHEST, ) 08/31/2019 3:31 PM FINDINGS: Lungs: Unremarkable. No consolidation. Pleural space: Unremarkable. No pleural effusion. No pneumothorax. Heart/Mediastinum: Unremarkable. No cardiomegaly. Bones/joints: Unremarkable. XR/XR chest 1V portable [id number] IMPRESSION: No acute findings. EKG Data^: EKG 1: Attestation: I personally reviewed and interpreted this EKG as follows: EKG interpretation date: 09/19/19 EKG interpretation time: 13:01 Interpretation: afib hr [address] or t wave abnormalities qrs 88 qtc 434 EKG 2: Attestation: I personally reviewed and interpreted this EKG as follows: EKG interpretation date: 09/19/19 EKG interpretation time: 16:08 Interpretation: afib hr [address] or t wave abnormalities Discharge Plan Discharge Patient Disposition: Home Clinical Impression: Chest pain Qualifiers: Chest pain type: unspecified Qualified Code(s): R07.9 - Chest pain, unspecified Condition: Stable Prescriptions: No Action tamsulosin [Flomax] 0.4 mg capsule 0.4 mg PO DAILY RF: 0 albuterol sulfate 2.5 mg/0.5 mL solution for nebulization 10 mg INHALATION Q4H PRN (Reason: Shortness of breathe) RF: 0 risperidone 0.5 mg tablet 0.5 mg PO BID RF: 0 melatonin 5 mg capsule 30 mg PO BEDTIME RF: 0 ascorbate calcium (vitamin C) 500 mg tablet 500 mg PO DAILY RF: 0 Eliquis 5 mg tablet 5 mg PO BID 90 Days Qty: 180 RF: 1 furosemide 40 mg tablet 40 mg PO BID Qty: 180 RF: 1 potassium chloride 20 mEq tablet extended release 20 meq PO DAILY 90 Days Qty: 90 RF: 1 Nexium 40 mg capsule,delayed release(DR/EC) 40 mg PO BID Qty: 60 RF: 0 sucralfate 100 mg/mL suspension 1 g PO Q6H 30 Days Qty: 1200 RF: 2 spironolactone 25 mg Tablet 25 mg PO DAILY RF: 0 Discharge Orders: Discharge Order (Routine); Ordered 09/19/19 Ordered By: Leola Sequeira Referrals: Ashley Medrano FNP [Primary Care Provider] - 1-3 days Discharge Diet: Advance as tolerated Discharge Activity: Resume usual activity Coding Level of Care Code ED Process Camera Operator for Chg Fwd Exam Comprehensive
[2019-09-19 13:58] LABS: Basophils % 0.6 %; Eosinophils # 0.6 10^3/uL (0.0-0.8); Eosinophils % 8.2 %; Hematocrit 37.7 % (42.0-52.0); Hemoglobin 11.3 g/dL (11.7-16.6); Lymphocytes # 1.2 10^3/uL (0.8-4.8); Lymphocytes % 17.3 %; Mean Corpuscular Hemoglobin 24.6 pg (28.0-34.0); Mean Platelet Volume 10.1 fL (7.4-10.4); Monocytes # 0.6 10^3/uL (0.2-0.9); Monocytes % 9.4 %; Neutrophils % 64.2 %; Nucleated Red Blood Cells % 0 %; Platelet Count 248 10^3/cmm (130-400); Red Cell Distribution Width 16.9 % (12.1-15.1); White Blood Count 6.8 10^3/uL (4.0-10.0)
[2019-09-19 14:19] LABS: Alanine Aminotransferase 12 U/L (0-41); Albumin Level 4.1 g/dL (3.5-5.2); Alkaline Phosphatase 95 IU/L (40-130); Anion Gap 10.5 (5-19); Aspartate Amino Transferase 18 U/L (0-40); Blood Urea Nitrogen 10 mg/dL (8-23); Carbon Dioxide 28 mmol/L (22-29); Chloride 103 mmol/L (98-107); Creatinine Clr Calc Pharmacy 58.4603; Globulin 2.1 g/dL (1.3-4.6); Glucose 97 mg/dL (65-115); Osmolality Calculated 282 mOsm/kg (285-295); Potassium 3.5 mmol/L (3.5-5.1); Sodium 138 mmol/L (136-145); Total Bilirubin 0.2 mg/dL (0.15-1.2); Total Protein 6.2 g/dL (6.6-8.7)
[2019-09-19 14:33] LABS: Troponin(5th) Baseline 38 ng/L (0-15)
--- NOTE | 2019-09-19 14:56 | ECG_ITS ---
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 Measurements Intervals [place] Rate: 66 P: [place]: -1 QRS: -14 QRSD: 96 T: 56 QT: 413 QTc: 435 Interpretive Statements ATRIAL FIBRILLATION LOW QRS VOLTAGE IN PRECORDIAL LEADS [QRS DEFLECTION < 1.0 mV IN CHEST LEADS] POSSIBLE RIGHT VENTRICULAR CONDUCTION DELAY [RSR (QR) IN V1/V2] NONSPECIFIC ST & T-WAVE ABNORMALITY ABNORMAL RHYTHM ECG Compared to ECG 09/19/2019 13:01:39 No significant changes Electronically Signed On 09-19-2019 18:19:42 CDT by Sunil Diane M.D. [id number]
[2019-09-19 16:25] LABS: Troponin 5 2HR 40.72 ng/L (0-15); Troponin 5 2HR Delta 2.72 ABS# (0-10)
== END 2019-09-19 20:34 | disposition home or self-care (01) ==
PROVIDERS: Emergency Provider Emergency Medicine; PCP Nurse Practitioner Family
DX: R07.9 Chest pain, unspecified (principal); Z79.01 Long term (current) use of anticoagulants; I48.91 Unspecified atrial fibrillation; Z85.01 Personal history of malignant neoplasm of esophagus; I11.0 Hypertensive heart disease with heart failure; I50.9 Heart failure, unspecified; J44.9 Chronic obstructive pulmonary disease, unspecified; Z86.73 Personal history of transient ischemic attack (TIA), and cerebral infarction without residual deficits; E11.9 Type 2 diabetes mellitus without complications; E78.5 Hyperlipidemia, unspecified; G31.83 Neurocognitive disorder with Lewy bodies; F02.80 Dementia in other diseases classified elsewhere, unspecified severity, without behavioral disturbance, psychotic disturbance, mood disturbance, and anxiety; Z87.891 Personal history of nicotine dependence
CPT/HCPCS: 12345; 36415; 71045; 80053; 84484; 85025; 93005; 93010; 99283; 99284

== ENCOUNTER 2019-10-14 16:11 | Inpatient (IN) | payer MEDICARE, MEDICAID, SELFPAY ==
[2019-10-14] VITALS (20 sets, daily range): BP systolic 108–167; BP diastolic 54–88; PULSE 72–88; RESP 18–28; TEMP 36.3–37.3; O2SAT 93–100; BMI 31.5
--- NOTE | 2019-10-14 16:23 | XRR_ITS ---
PROCEDURE INFORMATION: Exam: XR Chest, 1 View Exam date and time: 10/14/2019 5:26 PM Age: 78 years old Clinical indication: Shortness of breath and other: AMS; Prior surgery; Surgery date: 6+ months; Surgery type: Machine Setter And Repairer shunt and revision 2005. [place] filter; Patient HX: AMS, confusion. Weakness, short of breath; HX of chf and copd. HX of esophageal cancer; Additional info: Dyspnea TECHNIQUE: Imaging protocol: XR of the chest Views: 1 view. COMPARISON: CR XR chest 1V portable [id number] 09/19/2019 1:11 PM FINDINGS: Lungs: Interstitial prominence diffusely. Mild atelectasis left retrocardiac region. Lungs are otherwise well aerated. Pleural space: Unremarkable. No pleural effusion. No pneumothorax. Heart/Mediastinum: The cardiac silhouette appears enlarged, some of which is magnification related to the AP projection. Bones/joints: Unremarkable. Soft tissues: Radiopaque density overlies the right thorax mid aspect laterally felt to be extrinsic. Please correlate. Recommend two-view chest. XR/XR chest 1V portable [id number] IMPRESSION: 1. Radiopaque density overlies the right thorax mid aspect laterally felt to be extrinsic. Please correlate. Recommend two-view chest. 2. Interstitial prominence diffusely. Mild atelectasis left retrocardiac region. Lungs are otherwise well aerated.
--- NOTE | 2019-10-14 16:23 | ECG_ITS ---
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 Measurements Intervals [place] Rate: 73 P: [place]: -1 QRS: -5 QRSD: 86 T: 27 QT: 373 QTc: 411 Interpretive Statements ATRIAL FIBRILLATION NONSPECIFIC ST & T-WAVE ABNORMALITY ABNORMAL RHYTHM ECG Compared to ECG 09/19/2019 16:08:40 No significant changes Electronically Signed On 10-14-2019 20:30:32 CDT by Ashley Bethea M.D. [id number]
--- NOTE | 2019-10-14 16:26 | ED_ITS ---
HPI - General Adult General: Chief complaint: Altered Mental Status Stated complaint: AMS, WEAKNESS Time Seen by Provider: 10/14/19 16:17 Source: patient and EMS Mode of arrival: EMS Limitations: altered mental status History of Present Illness: HPI narrative: Willie is a 78-year-old male well- known to me who comes from home via EMS. The report is of confusion, generalized weakness, decreased appetite and wheezing. The patient symptoms began yesterday. There is been no reported abdominal pain or fever. Willie denies any focal pain at this time but says he aches all over. Patient's history is limited as he is in significant respiratory distress. Most of history is obtained from old charts Review of Systems General: Reports: ROS unobtainable due to medical condition (Respiratory distress) PFSH ED PFSH: Medical History Anticoagulation adequate with anticoagulant therapy ASHD (arteriosclerotic heart disease) Atrial fibrillation was taken off anticoagulation due to GI bleed, has IVC filter Piper's esophagus BPH (benign prostatic hyperplasia) Carcinoma of esophagus radiation esophagitis CHF (congestive heart failure), NYHA class I COPD (chronic obstructive pulmonary disease) CVA (cerebral vascular accident) Diabetes Dyslipidemia (high LDL; low HDL) Essential hypertension Gait disturbance Lewy body dementia with behavioral disturbance NATALI (obstructive sleep apnea) Post laminectomy syndrome Pulmonary emboli Surgical History Trip filter in place History of esophagogastroduodenoscopy (EGD) (07/24/19) resolution of Grade D esophagitis, no evidence of carcinoma Previous back surgery S/P angioplasty with stent S/P appendectomy S/P hernia repair S/P tonsillectomy [employer] (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 Aicha Roche [employer] shunt revision Family History Father CAD (coronary artery disease) Mother CAD (coronary artery disease) Hypertension Sister CAD (coronary artery disease) Diabetes Family/Other Stroke Denies family history of Anesthesia complication Bleeding disorder Social History Smoking and tobacco status: former smoker Quit status (tobacco): has quit using tobacco Alcohol intake: former Physical Exam Const: COMMON NORMALS: patient oriented x3 GENERAL APPEARANCE: cooperative, well kempt and anxious HENMT: COMMON NORMALS: normocephalic, atraumatic, external ears normal, EAC's normal and Normal external nose present HEAD & SCALP: normal to inspection, normocephalic and atraumatic FACE & SINUS: normal facial exam and face symmetric NOSE: Normal external nose present and Normal nares present EXTERNAL EAR: Yes external ears normal EXTERNAL AUDITORY CANAL: EAC's normal MOUTH: Normal oral and palatal mucosa present, lip normal and tongue normal Eye: COMMON NORMALS: Equal, round and reactive pupils present and conjunctivae normal GENERAL EYE: appearance normal, both eyes and all related structures ALIGNMENT: Yes alignment normal PERIORBITAL: periorbital findings normal EYELID: eyelids normal CONJUNCTIVA: Yes conjunctivae normal SCLERA: sclerae normal PUPIL: Yes Equal, round and reactive pupils present Neck/C-Spine: COMMON NORMALS: full ROM, no lymphadenopathy, supple, no meningeal signs and no JVD GENERAL: Yes normal visual inspection and Yes trachea midline Chest: COMMONS NORMALS: normal inspection of the chest and normal palpation of entire chest wall Resp: EFFORT & INSPECTION: Yes labored, Yes uses accessory muscles and Yes audible wheezes AUSCULTATION: rhonchi, wheezes and diminished lung sounds Cardio: COMMON NORMALS: no JVD, regular rate, regular rhythm, S1 normal heart sound present and S2 normal heart sound present RATE: regular rate RHYTHM: regular rhythm HEART SOUNDS: S1 normal heart sound present, S2 normal heart sound present, no click, no gallops, no murmurs, no rubs and abnormal split S2 GI: COMMON NORMALS: Soft to palpation and No hepatosplenomegaly present PALPATION: Yes Soft to palpation, Yes Tenderness to palpation present (GI) (mild diffusly), No Guarding due to palpation present (GI), No Rigid due to palpation, Yes No hepatosplenomegaly present, No Hernia present, No Palpable mass present and No Pulsatile mass present : COMMON NORMALS: Yes no CVA tenderness BLADDER/KIDNEY EXAM: Yes no CVA tenderness Back/Pelvis: COMMON NORMALS: no CVA tenderness, thoracic and lumbar spine normal to inspection, no thoracic nor lumbar tenderness and thoraco-lumbar ROM normal Extremity: COMMON NORMALS: normal to inspection, full ROM, capillary refill normal, no joint enlargement, no clubbing, cyanosis or edema and no calf tenderness Neuro: COMMON NORMALS: patient oriented x3, CN's II-XII intact bilaterally, moves all extremities, no focal motor deficits and no sensory deficits noted MENINGEAL SIGNS: Yes no meningeal signs SPEECH: speech normal Psych: COMMON NORMALS: mental status grossly normal, Normal thought process present, cooperative, normal affect, speech normal and activity/motor behavior normal APPEARANCE: Yes well kempt SPEECH: Yes normal speech THOUGHT PROCESS: Normal thought process present Skin: COMMON NORMALS: no rashes or lesions noted, turgor normal, no jaundice, no petechiae and no mottling GENERAL SKIN EXAM: no rashes or lesions noted and turgor normal Course Vital Signs: Vital signs: Vital Signs Temperature 99.2 F 10/14/19 17:15 Pulse Rate 79 10/14/19 21:30 Respiratory Rate 25 H 10/14/19 21:30 Blood Pressure 111/71 10/14/19 21:30 Pulse Oximetry 98 10/14/19 21:30 MDM - General Adult MDM Narrative: Medical decision making narrative: Colitis in a 78-year-old male comes in with altered mental status, difficulty breathing and diarrhea. This time I believe he has a left lower lobe pneumonia seen on CT. No evidence of acute intracranial pathology by head CT. Patient's breathing is markedly better on BiPAP. The case was endorsed to Dr. Naqvi and he agrees to go and admit the patient. Lab Data: Attestation: I reviewed the patient's lab results. Labs: Lab Results 10/14/19 10/14/19 10/14/19 Range/Units 16:28 16:55 16:55 WBC 11.8 H (4.0-10.0) 10^3/ uL RBC 4.43 (4.1-5.3) 10^6/u L Hgb 11.1 L (11.7-16.6) g/dL Hct 37.0 L (42.0-52.0) % MCV 83.5 (80-94) fL MCH 25.1 L (28.0-34.0) pg MCHC 30.0 (30.0-36.0) g/dL RDW 17.3 H (12.1-15.1) % Plt Count 231 (130-400) 10^3/c mm MPV 10.6 H (7.4-10.4) fL Neut % (Auto) 73.2 % Lymph % (Auto) 11.0 % [place] % (Auto) 11.8 % Eos % (Auto) 3.2 % Baso % (Auto) 0.5 % Neut # (Auto) 8.60 H (1.8-7.7) 10^3/u L Lymph # (Auto) 1.3 (0.8-4.8) 10^3/u L [place] # (Auto) 1.4 H (0.2-0.9) 10^3/u L Eos # (Auto) 0.4 (0.0-0.8) 10^3/u L Baso # (Auto) 0.1 (0.0-0.1) 10^3/u L Nucleated RBC % (a uto) 0 % Nucleated RBCs # 0.0 /100WBC Specimen Type Arterial Sample Site Radial, left ABG pH 7.42 (7.35-7.45) ABG pCO2 34.8 L (35-45) mmHg ABG pO2 125.0 H (80.0-100.0) mmH g ABG HCO3 22.3 (22-26) mmol/L ABG O2 Saturation 99.6 ABG Base Excess -1.8 (-2.0-2.0) mmol/ L Krzysztof Test Pos A-a O2 Gradient 7.3 (5-10) mmHg Hematocrit 34.9 L (42-52) % Hgb O2 Saturation 97.6 (95-100) % Carboxyhemoglobin 1.2 (0.4-20.1) %THgb Methemoglobin 0.8 (0.4-1.5) % Total Hemoglobin 11.4 L (14-18) g/dL Sodium 140.0 138 (131-143) mmol/L Potassium 3.8 4.1 (3.5-5.0) mmol/L Glucose 101.0 97 (70-115) mg/dL Ionized Calcium 1.2 (1.1-1.4) mmol/L O2 Delivery Device Nc O2 Liters/Min 3.0 % FiO2 32.0 % Farm Adviser ID Amh Chloride 104 (98-107) mmol/L Carbon Dioxide 24 (22-29) mmol/L Anion Gap 14.1 (5-19) BUN 11 (8-23) mg/dL Creatinine 1.1 (0.7-1.2) mg/dL GFR Calculation Not Reportable Calculated Osmolal ity 282 L (285-295) mOsm/k g Lactic Acid (0.5-2.2) mmol/L Calcium 8.9 (8.5-10.5) mg/dL Magnesium 2.2 (1.7-2.3) mg/dL Total Bilirubin 0.4 (0.15-1.2) mg/dL AST 12 (0-40) U/L ALT 14 (0-41) U/L Alkaline Phosphata se 90 (40-130) IU/L Troponin T Baselin e (0-15) ng/L Troponin T 120 Min [place] (0-15) ng/L Delta Troponin T (0-10) ABS# NT-Pro-B Natriuret Pep (0-450) pg/mL Total Protein 7.3 (6.6-8.7) g/dL Albumin 4.2 (3.5-5.2) g/dL Globulin 3.1 (1.3-4.6) g/dL Urine Color (Yellow) Urine Appearance (CLEAR) Urine pH (5-7) Ur Specific Gravit y (1.005-1.030) Urine Protein (Negative) Urine Glucose (UA) (Normal) Urine Ketones (Negative) Urine Blood (Negative) Urine Nitrate (Negative) Urine Bilirubin (NEGATIVE) Urine Urobilinogen (Negative) mg/dL Ur Leukocyte Erica ase (Negative) SARS-CoV-2 Ag (Rap id) (Negative) 10/14/19 10/14/19 10/14/19 Range/Units 16:55 16:55 16:55 WBC (4.0-10.0) 10^3/ uL RBC (4.1-5.3) 10^6/u L Hgb (11.7-16.6) g/dL Hct (42.0-52.0) % MCV (80-94) fL MCH (28.0-34.0) pg MCHC (30.0-36.0) g/dL RDW (12.1-15.1) % Plt Count (130-400) 10^3/c mm MPV (7.4-10.4) fL Neut % (Auto) % Lymph % (Auto) % [place] % (Auto) % Eos % (Auto) % Baso % (Auto) % Neut # (Auto) (1.8-7.7) 10^3/u L Lymph # (Auto) (0.8-4.8) 10^3/u L [place] # (Auto) (0.2-0.9) 10^3/u L Eos # (Auto) (0.0-0.8) 10^3/u L Baso # (Auto) (0.0-0.1) 10^3/u L Nucleated RBC % (a uto) % Nucleated RBCs # /100WBC Specimen Type Sample Site ABG pH (7.35-7.45) ABG pCO2 (35-45) mmHg ABG pO2 (80.0-100.0) mmH g ABG HCO3 (22-26) mmol/L ABG O2 Saturation ABG Base Excess (-2.0-2.0) mmol/ L Krzysztof Test A-a O2 Gradient (5-10) mmHg Hematocrit (42-52) % Hgb O2 Saturation (95-100) % Carboxyhemoglobin (0.4-20.1) %THgb Methemoglobin (0.4-1.5) % Total Hemoglobin (14-18) g/dL Sodium (131-143) mmol/L Potassium (3.5-5.0) mmol/L Glucose (70-115) mg/dL Ionized Calcium (1.1-1.4) mmol/L O2 Delivery Device O2 Liters/Min % FiO2 % Farm Adviser ID Chloride (98-107) mmol/L Carbon Dioxide (22-29) mmol/L Anion Gap (5-19) BUN (8-23) mg/dL Creatinine (0.7-1.2) mg/dL GFR Calculation Calculated Osmolal ity (285-295) mOsm/k g Lactic Acid 1.7 (0.5-2.2) mmol/L Calcium (8.5-10.5) mg/dL Magnesium (1.7-2.3) mg/dL Total Bilirubin (0.15-1.2) mg/dL AST (0-40) U/L ALT (0-41) U/L Alkaline Phosphata se (40-130) IU/L Troponin T Baselin e 31 H (0-15) ng/L Troponin T 120 Min [place] (0-15) ng/L Delta Troponin T (0-10) ABS# NT-Pro-B Natriuret Pep (0-450) pg/mL Total Protein (6.6-8.7) g/dL Albumin (3.5-5.2) g/dL Globulin (1.3-4.6) g/dL Urine Color Yellow (Yellow) Urine Appearance Clear (CLEAR) Urine pH 6 (5-7) Ur Specific Gravit y 1.020 (1.005-1.030) Urine Protein Neg (Negative) Urine Glucose (UA) Norm (Normal) Urine Ketones Negative (Negative) Urine Blood Neg (Negative) Urine Nitrate Negative (Negative) Urine Bilirubin Neg (NEGATIVE) Urine Urobilinogen Norm (Negative) mg/dL Ur Leukocyte Erica ase Negative (Negative) SARS-CoV-2 Ag (Rap id) (Negative) 10/14/19 10/14/19 10/14/19 Range/Units 16:55 17:07 18:42 WBC (4.0-10.0) 10^3/ uL RBC (4.1-5.3) 10^6/u L Hgb (11.7-16.6) g/dL Hct (42.0-52.0) % MCV (80-94) fL MCH (28.0-34.0) pg MCHC (30.0-36.0) g/dL RDW (12.1-15.1) % Plt Count (130-400) 10^3/c mm MPV (7.4-10.4) fL Neut % (Auto) % Lymph % (Auto) % [place] % (Auto) % Eos % (Auto) % Baso % (Auto) % Neut # (Auto) (1.8-7.7) 10^3/u L Lymph # (Auto) (0.8-4.8) 10^3/u L [place] # (Auto) (0.2-0.9) 10^3/u L Eos # (Auto) (0.0-0.8) 10^3/u L Baso # (Auto) (0.0-0.1) 10^3/u L Nucleated RBC % (a uto) % Nucleated RBCs # /100WBC Specimen Type Sample Site ABG pH (7.35-7.45) ABG pCO2 (35-45) mmHg ABG pO2 (80.0-100.0) mmH g ABG HCO3 (22-26) mmol/L ABG O2 Saturation ABG Base Excess (-2.0-2.0) mmol/ L Krzysztof Test A-a O2 Gradient (5-10) mmHg Hematocrit (42-52) % Hgb O2 Saturation (95-100) % Carboxyhemoglobin (0.4-20.1) %THgb Methemoglobin (0.4-1.5) % Total Hemoglobin (14-18) g/dL Sodium (131-143) mmol/L Potassium (3.5-5.0) mmol/L Glucose (70-115) mg/dL Ionized Calcium (1.1-1.4) mmol/L O2 Delivery Device O2 Liters/Min % FiO2 % Farm Adviser ID Chloride (98-107) mmol/L Carbon Dioxide (22-29) mmol/L Anion Gap (5-19) BUN (8-23) mg/dL Creatinine (0.7-1.2) mg/dL GFR Calculation Calculated Osmolal ity (285-295) mOsm/k g Lactic Acid (0.5-2.2) mmol/L Calcium (8.5-10.5) mg/dL Magnesium (1.7-2.3) mg/dL Total Bilirubin (0.15-1.2) mg/dL AST (0-40) U/L ALT (0-41) U/L Alkaline Phosphata se (40-130) IU/L Troponin T Baselin e (0-15) ng/L Troponin T 120 Min [place] 32.51 H (0-15) ng/L Delta Troponin T 1.51 (0-10) ABS# NT-Pro-B Natriuret Pep 2038 H (0-450) pg/mL Total Protein (6.6-8.7) g/dL Albumin (3.5-5.2) g/dL Globulin (1.3-4.6) g/dL Urine Color (Yellow) Urine Appearance (CLEAR) Urine pH (5-7) Ur Specific Gravit y (1.005-1.030) Urine Protein (Negative) Urine Glucose (UA) (Normal) Urine Ketones (Negative) Urine Blood (Negative) Urine Nitrate (Negative) Urine Bilirubin (NEGATIVE) Urine Urobilinogen (Negative) mg/dL Ur Leukocyte Erica ase (Negative) SARS-CoV-2 Ag (Rap id) Negative (Negative) Imaging Data^: CXR: Attestation: I personally reviewed and interpreted this imaging study as follows: My impression: Mild pulmonary vascular congestion CT Head: Radiologist's impression: [facility] [address] [place] [address] CT Scan Report Signed Patient: Willie Ram Unit #: [id number] : 1940 Age/Sex: 78 / M ADM Date: 10/14/19 Loc: ER Room/Bed: Attending Dr: Ordering Provider/Ordering MD: Jaci Leger DO Date of Service: 10/14/19 Procedure(s): CT head wo con* [id number] Accession Number(s): [id number] Report Number: [id number] PROCEDURE INFORMATION: Exam: CT Head Without Contrast Exam date and time: 10/14/2019 6:37 PM Age: 78 years old Clinical indication: Altered mental status/memory loss; Prior surgery; Surgery type: Shunt; Additional info: AMS TECHNIQUE: Imaging protocol: Computed tomography of the head without contrast. Radiation optimization: All CT scans at this facility use at least one of these dose optimization techniques: automated exposure control; mA and/or kV adjustment per patient size (includes targeted exams where dose is matched to clinical indication); or iterative reconstruction. COMPARISON: CT head wo con* [id number] 06/20/2019 3:00 PM RADIATION DOSE METRICS: Total DLP (mGy-cm): 635.95 FINDINGS: Brain: Chronic periventricular microangiopathy. Chronic small bifrontal infarcts. Generalized sulcal widening and ventricular enlargement are age related changes due to white matter volume loss. Ventricles: A left frontal intraventricular shunt is unchanged. Ventricular size is stable and unchanged since June 2019. The subcutaneous path of the shunt crosses the left portion of the skull and into the neck. No abnormal fluid collections around the shunt. Bones/joints: Unremarkable. No acute fracture. Sinuses: Visualized sinuses are unremarkable. No fluid levels. Mastoid air cells: Visualized mastoid air cells are well aerated. Soft tissues: Unremarkable. CT/CT head wo con* [id number] IMPRESSION: 1. No acute intracranial findings. 2. Unchanged intraventricular shunt. 3. Unchanged chronic small bifrontal infarcts Radiation Dose CTDIVOL = (mGy): DLP = 635.95 (mGy-cm) Dictated By: Camilla Terry MD Signed By: Camilla Terry MD Signed Date/Time: 10/14/192024 DD/ 22 CT Abd/Pel: Radiologist's impression: [address] [place] [address] CT Scan Report Signed Patient: Willie Ram Unit #: [id number] : 1940 Age/Sex: 78 / M ADM Date: 10/14/19 Loc: ER Room/Bed: Attending Dr: Ordering Provider/Ordering MD: Jaci Leger DO Date of Service: 10/14/19 Procedure(s): CT abdomen pelvis w con* [id number] Accession Number(s): [id number] Report Number: [id number] PROCEDURE INFORMATION: Exam: CT Abdomen And Pelvis With Contrast Exam date and time: 10/14/2019 7:10 PM Age: 78 years old Clinical indication: Other: Blood in stool; Additional info: Abdominal pain TECHNIQUE: Imaging protocol: Computed tomography of the abdomen and pelvis with intravenous contrast. Radiation optimization: All CT scans at this facility use at least one of these dose optimization techniques: automated exposure control; mA and/or kV adjustment per patient size (includes targeted exams where dose is matched to clinical indication); or iterative reconstruction. Contrast material: OMNI 300; Contrast volume: 95 ml; Contrast route: INTRAVENOUS (IV); COMPARISON: CT abdomen pelvis w con* [id number] 08/01/2018 12:35 PM RADIATION DOSE METRICS: Total DLP (mGy-cm): 1711.5 FINDINGS: Limitations: Study somewhat limited due to streak artifact created by the patient being scanned with the arms at the sides. Study is somewhat limited by patient respiratory motion. Tubes, catheters and devices: SUPER[employer]SEMBL[employer] shunt catheter is again identified not significantly changed. Lungs: There is some small patchy consolidation at the left lung base which may represent pneumonia. Correlation with clinical findings is suggested. Pleural space: There is a small right pleural effusion. Mediastinal space: There is a small hiatal hernia. Distal esophagus is not well visualized due to artifacts but is grossly unchanged from previous. Liver: There is no focal abnormality within the liver. Gallbladder and bile ducts: The gallbladder is normal. Pancreas: The pancreas is normal. Spleen: The spleen is normal. Adrenals: The adrenal glands are normal. Kidneys and ureters: The kidneys are normal. There is no evidence of renal or ureteral calcifications. There is no evidence of hydronephrosis. Stomach and bowel: Unremarkable. No obstruction. No mucosal thickening. Appendix: Not identifiedThere is no evidence of colitis/diverticulitis. Intraperitoneal space: There is no evidence of free intraperitoneal fluid. Vasculature: There is IVC filter unchanged in position. The aorta demonstrates moderate atherosclerotic calcification. There is no evidence of an abdominal aortic aneurysm. There is no evidence of dissection, leak, rupture, or other acute vascular pathology. Lymph nodes: Unremarkable. No enlarged lymph nodes. Bladder: Urinary bladder is drained by [place] catheter. Reproductive: Unremarkable as visualized. Bones/joints: The lumbar spine demonstrates moderate degenerative changes at multiple levels. Soft tissues: Unremarkable. CT/CT abdomen pelvis w con* [id number] IMPRESSION: 1. Small right pleural effusion. 2. Left lower lobe infiltrate. 3. No acute finding in the abdomen or pelvis. Radiation Dose CTDIVOL = (mGy): DLP = 1711.5 (mGy-cm) Dictated By: Isaias Del Toro Signed By: Isaias Del Toro Signed Date/Time: 10/14/192031 DD/ 29 EKG Data^: EKG 1: Attestation: I personally reviewed and interpreted this EKG as follows: EKG interpretation date: 10/14/19 EKG interpretation time: 16:33 Interpretation: Atrial fibrillation with ventricular rate of 73 beats a minute, no blocks, normal intervals, nonspecific ST-T wave changes. Computer generated interpretation: Head CT 10/14/19 18:35 IMPRESSION: 1. No acute intracranial findings. 2. Unchanged intraventricular shunt. 3. Unchanged chronic small bifrontal infarcts Radiation Dose CTDIVOL = (mGy): DLP = 635.95 (mGy-cm) Abdomen/Pelvis CT 10/14/19 19:08 IMPRESSION: 1. Small right pleural effusion. 2. Left lower lobe infiltrate. 3. No acute finding in the abdomen or pelvis. Radiation Dose CTDIVOL = (mGy): DLP = 1711.5 (mGy-cm) EKG 2: Attestation: I personally reviewed and interpreted this EKG as follows: EKG interpretation date: 10/14/19 EKG interpretation time: 18:39 Interpretation: Atrial fibrillation with a ventricular rate of 83 beats a minute, no blocks, normal intervals, left axis deviation, PVCs noted. Computer generated interpretation: Head CT 10/14/19 18:35 IMPRESSION: 1. No acute intracranial findings. 2. Unchanged intraventricular shunt. 3. Unchanged chronic small bifrontal infarcts Radiation Dose CTDIVOL = (mGy): DLP = 635.95 (mGy-cm) Abdomen/Pelvis CT 10/14/19 19:08 IMPRESSION: 1. Small right pleural effusion. 2. Left lower lobe infiltrate. 3. No acute finding in the abdomen or pelvis. Radiation Dose CTDIVOL = (mGy): DLP = 1711.5 (mGy-cm) Discharge Plan Discharge Patient Disposition: Admitted As Inpatient Clinical Impression: Acute alteration in mental status, Pneumonia, Diarrhea Condition: Stable Prescriptions: No Action tamsulosin [Flomax] 0.4 mg capsule 0.4 mg PO DAILY RF: 0 albuterol sulfate 2.5 mg/0.5 mL solution for nebulization 10 mg INHALATION Q4H PRN (Reason: Shortness of breathe) RF: 0 risperidone 0.5 mg tablet 0.5 mg PO BID RF: 0 melatonin 5 mg capsule 30 mg PO BEDTIME RF: 0 ascorbate calcium (vitamin C) 500 mg tablet 500 mg PO DAILY RF: 0 furosemide 40 mg tablet 40 mg PO BID Qty: 180 RF: 1 potassium chloride 20 mEq tablet extended release 20 meq PO DAILY 90 Days Qty: 90 RF: 1 Eliquis 5 mg tablet 5 mg PO BID 90 Days Qty: 180 RF: 1 spironolactone 25 mg Tablet 25 mg PO DAILY RF: 0 Carafate 100 mg/mL suspension 1 g PO Q6H RF: 0 Nexium 40 mg capsule,delayed release(DR/EC) 40 mg PO DAILY RF: 0 Referrals: Ashley Medrano FNP [Primary Care Provider] - Coding Level of Care Code ED Senior Dentist for Chg Fwd Exam Comprehensive
[2019-10-14 16:40] LABS: ABG PCO2 34.8 mmHg (35-45); ABG PH Result 7.42 (7.35-7.45); Alveolar-Arterial Oxygen Gradi 7.3 mmHg (5-10); Arterial Blood Gas Hematocrit 34.9 % (42-52); Base Excess ABG -1.8 mmol/L (-2.0-2.0); Blood Gas Allen Test Pos; Blood Gas Operator Identificat AMH; Blood Gas Sample Site Radial, left; Blood Gas Sample Type Arterial; Carboxyhemoglobin 1.2 %THgb (0.4-20.1); HCO3 ABG 22.3 mmol/L (22-26); HGB O2 Sat 97.6 % (95-100); Ionized Calcium Level - ABG 1.2 mmol/L (1.1-1.4); Methemoglobin 0.8 % (0.4-1.5); Oxygen Device NC; Oxygen Saturation ABG 99.6; Potassium Level - ABG 3.8 mmol/L (3.5-5.0); Total Hemoglobin 11.4 g/dL (14-18)
[2019-10-14 17:06] LABS: Basophils # 0.1 10^3/uL (0.0-0.1); Basophils % 0.5 %; Eosinophils # 0.4 10^3/uL (0.0-0.8); Eosinophils % 3.2 %; Hemoglobin 11.1 g/dL (11.7-16.6); Lymphocytes # 1.3 10^3/uL (0.8-4.8); Mean Corpuscular Hemoglobin 25.1 pg (28.0-34.0); Mean Corpuscular Volume 83.5 fL (80-94); Mean Platelet Volume 10.6 fL (7.4-10.4); Monocytes # 1.4 10^3/uL (0.2-0.9); Monocytes % 11.8 %; Neutrophils % 73.2 %; Nucleated Red Blood Cells % 0 %; Platelet Count 231 10^3/cmm (130-400); Red Blood Count 4.43 10^6/uL (4.1-5.3); Red Cell Distribution Width 17.3 % (12.1-15.1); White Blood Count 11.8 10^3/uL (4.0-10.0)
[2019-10-14 17:07] LABS: Add Urine Microscopic? NO
[2019-10-14] MEDS: ipratropium-albuterol 3 mL Neb 9 ML INHALATION (17:13)
[2019-10-14] MEDS: ondansetron 2 mg/ML SDV 2 mL 4 MG IVP (17:18)
[2019-10-14 17:23] LABS: Bilirubin Urine Neg (NEGATIVE); Blood Urine Neg (Negative); Glucose Urine UA Norm (Normal); Ketones Urine Negative (Negative); Leukocyte Esterase Urine Negative (Negative); Nitrate Urine Negative (Negative); Protein Urine Neg (Negative); Urine Appearance Clear (CLEAR); Urine Color Yellow (Yellow); Urobilinogen Urine Norm (Negative); pH Urine 6 (5-7)
[2019-10-14 17:27] LABS: Lactic Sepsis W/Reflex 1.7 mmol/L (0.5-2.2)
[2019-10-14 17:28] LABS: Alanine Aminotransferase 14 U/L (0-41); Albumin Level 4.2 g/dL (3.5-5.2); Alkaline Phosphatase 90 IU/L (40-130); Anion Gap 14.1 (5-19); Aspartate Amino Transferase 12 U/L (0-40); Blood Urea Nitrogen 11 mg/dL (8-23); Calcium 8.9 mg/dL (8.5-10.5); Carbon Dioxide 24 mmol/L (22-29); Chloride 104 mmol/L (98-107); Globulin 3.1 g/dL (1.3-4.6); Glucose 97 mg/dL (65-115); Magnesium 2.2 mg/dL (1.7-2.3); Osmolality Calculated 282 mOsm/kg (285-295); Potassium 4.1 mmol/L (3.5-5.1); Sodium 138 mmol/L (136-145); Total Bilirubin 0.4 mg/dL (0.15-1.2); Total Protein 7.3 g/dL (6.6-8.7); Troponin(5th) Baseline 31 ng/L (0-15)
[2019-10-14] MEDS: haloperidol inj 5 mg/mL INJ 1 mL 2 MG IM (17:55)
[2019-10-14 18:20] LABS: NT Pro B Type Natriuretic Pept 2038 pg/mL (0-450)
--- NOTE | 2019-10-14 18:23 | ECG_ITS ---
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 Measurements Intervals [place] Rate: 83 P: VA: -1 QRS: -21 QRSD: 93 T: 76 QT: 371 QTc: 438 Interpretive Statements ATRIAL FIBRILLATION WITH ABERRANT CONDUCTION OR VENTRICULAR PREMATURE COMPLEXES BORDERLINE LEFT AXIS DEVIATION LOW QRS VOLTAGE IN PRECORDIAL LEADS POSSIBLE RIGHT VENTRICULAR CONDUCTION DELAY [RSR (QR) IN V1/V2] NONSPECIFIC ST & T-WAVE ABNORMALITY Compared to ECG 10/14/2019 16:33:35 Ventricular premature complex(es) now present Aberrant conduction of supraventricular beat(s) now present Low QRS voltage now present T-wave abnormality still present Electronically Signed On 10-14-2019 20:56:03 CDT by Ashley Bethea M.D. [id number]
[2019-10-14 18:26] LABS: SARS Covid-2 Antigen Negative (Negative)
--- NOTE | 2019-10-14 18:35 | CTR_ITS ---
PROCEDURE INFORMATION: Exam: CT Head Without Contrast Exam date and time: 10/14/2019 6:37 PM Age: 78 years old Clinical indication: Altered mental status/memory loss; Prior surgery; Surgery type: Shunt; Additional info: AMS TECHNIQUE: Imaging protocol: Computed tomography of the head without contrast. Radiation optimization: All CT scans at this facility use at least one of these dose optimization techniques: automated exposure control; mA and/or kV adjustment per patient size (includes targeted exams where dose is matched to clinical indication); or iterative reconstruction. COMPARISON: CT head wo con* [id number] 06/20/2019 3:00 PM RADIATION DOSE METRICS: Total DLP (mGy-cm): 635.95 FINDINGS: Brain: Chronic periventricular microangiopathy. Chronic small bifrontal infarcts. Generalized sulcal widening and ventricular enlargement are age related changes due to white matter volume loss. Ventricles: A left frontal intraventricular shunt is unchanged. Ventricular size is stable and unchanged since June 2019. The subcutaneous path of the shunt crosses the left portion of the skull and into the neck. No abnormal fluid collections around the shunt. Bones/joints: Unremarkable. No acute fracture. Sinuses: Visualized sinuses are unremarkable. No fluid levels. Mastoid air cells: Visualized mastoid air cells are well aerated. Soft tissues: Unremarkable. CT/CT head wo con* [id number] IMPRESSION: 1. No acute intracranial findings. 2. Unchanged intraventricular shunt. 3. Unchanged chronic small bifrontal infarcts Radiation Dose CTDIVOL = (mGy): DLP = 635.95 (mGy-cm)
[2019-10-14] MEDS: FUROsemide 10 mg/mL SDV 4mL 40 MG IVP (18:43)
[2019-10-14] MEDS: nitroglycerin 1 gm/inch oint Pkt 1 INCH TOPICAL (18:43)
--- NOTE | 2019-10-14 19:05 | PC.NURSE ---
report received from NARGIS Rebollar and care transferred to NARGIS Mitchell
--- NOTE | 2019-10-14 19:08 | CTR_ITS ---
PROCEDURE INFORMATION: Exam: CT Abdomen And Pelvis With Contrast Exam date and time: 10/14/2019 7:10 PM Age: 78 years old Clinical indication: Other: Blood in stool; Additional info: Abdominal pain TECHNIQUE: Imaging protocol: Computed tomography of the abdomen and pelvis with intravenous contrast. Radiation optimization: All CT scans at this facility use at least one of these dose optimization techniques: automated exposure control; mA and/or kV adjustment per patient size (includes targeted exams where dose is matched to clinical indication); or iterative reconstruction. Contrast material: OMNI 300; Contrast volume: 95 ml; Contrast route: INTRAVENOUS (IV); COMPARISON: CT abdomen pelvis w con* [id number] 08/01/2018 12:35 PM RADIATION DOSE METRICS: Total DLP (mGy-cm): 1711.5 FINDINGS: Limitations: Study somewhat limited due to streak artifact created by the patient being scanned with the arms at the sides. Study is somewhat limited by patient respiratory motion. Tubes, catheters and devices: AGENCY SALES DEVELOPMENT ASSOCIATE shunt catheter is again identified not significantly changed. Lungs: There is some small patchy consolidation at the left lung base which may represent pneumonia. Correlation with clinical findings is suggested. Pleural space: There is a small right pleural effusion. Mediastinal space: There is a small hiatal hernia. Distal esophagus is not well visualized due to artifacts but is grossly unchanged from previous. Liver: There is no focal abnormality within the liver. Gallbladder and bile ducts: The gallbladder is normal. Pancreas: The pancreas is normal. Spleen: The spleen is normal. Adrenals: The adrenal glands are normal. Kidneys and ureters: The kidneys are normal. There is no evidence of renal or ureteral calcifications. There is no evidence of hydronephrosis. Stomach and bowel: Unremarkable. No obstruction. No mucosal thickening. Appendix: Not identifiedThere is no evidence of colitis/diverticulitis. Intraperitoneal space: There is no evidence of free intraperitoneal fluid. Vasculature: There is IVC filter unchanged in position. The aorta demonstrates moderate atherosclerotic calcification. There is no evidence of an abdominal aortic aneurysm. There is no evidence of dissection, leak, rupture, or other acute vascular pathology. Lymph nodes: Unremarkable. No enlarged lymph nodes. Bladder: Urinary bladder is drained by [place] catheter. Reproductive: Unremarkable as visualized. Bones/joints: The lumbar spine demonstrates moderate degenerative changes at multiple levels. Soft tissues: Unremarkable. CT/CT abdomen pelvis w con* [id number] IMPRESSION: 1. Small right pleural effusion. 2. Left lower lobe infiltrate. 3. No acute finding in the abdomen or pelvis. Radiation Dose CTDIVOL = (mGy): DLP = 1711.5 (mGy-cm)
[2019-10-14 19:27] LABS: Troponin 5 2HR 32.51 ng/L (0-15); Troponin 5 2HR Delta 1.51 ABS# (0-10)
[2019-10-14] MEDS: iohexol 300 mg/mL 100 mL Btl IV (19:37)
--- NOTE | 2019-10-14 20:22 | PC.NURSE ---
PATIENT CATHETER BAG EMPTIED WITH 1200ML OUT.
--- NOTE | 2019-10-14 21:57 | PC.NURSE ---
Patient removed from Bipap per Dr. Naqvi. Patient placed on 3 liters of oxygen via nasal cannula. Patient Oxygen saturation at 97%
--- NOTE | 2019-10-14 22:15 | PM.HP ---
Providers/Chief Complaint Primary Care Provider: DENZEL Cazares Chief Complaint: AMS, WEAKNESS History of Present Illness Willie Ram is a 78 year old male that presented with confusion to the emergency department. Confusion limits his history and physical. I did discuss his case with his who reports that he has underlying dementia but normally can carry on a conversation. Today this was much worse. He would look at her and did not appear to understand. He had not been eating and drinking as well today. He had no fever but is been coughing quite a bit. He has had no vomiting. He did not appear short of breath. He has significant edema which was perhaps slightly worse. No history of COVID or exposure to COVID. did not notice any specific focal weakness although she comments that he seemed to shuffle quite a bit and seemed more weak in general. In the emergency department I found him on BiPAP but I think they did that for tachypnea and respiratory effort. I removed him from BiPAP and he appeared to do well. He did receive steroids, and Lasix IV in the emergency department as well as some Haldol presumably for agitation. Review of Systems General: Reports: 10 or more systems reviewed and unremarkable except in HPI and below (Unable to obtain from patient secondary to mental status) Medications/Allergies Home Medications Medication Instructions Recorded Confirmed Last Taken Type albuterol sulfate 2.5 mg/0.5 mL 10 mg INHALATION Q4H PRN 02/18/19 10/14/19 03/28/19 History solution for nebulization ascorbate calcium (vitamin C) 500 500 mg PO DAILY tab 02/18/19 10/14/19 09/19/19 History mg tablet melatonin 5 mg capsule 30 mg PO BEDTIME cap 02/18/19 10/14/19 09/18/19 History risperidone 0.5 mg tablet 0.5 mg PO BID 02/18/19 10/14/19 09/19/19 History tamsulosin 0.4 mg capsule 0.4 mg PO DAILY cap 02/18/19 10/14/19 09/19/19 History spironolactone 25 mg PO DAILY 09/19/19 10/14/19 09/19/19 History apixaban 5 mg tablet 5 mg PO BID 90 Days #180 tab 09/26/19 10/14/19 Unknown Rx furosemide 40 mg tablet 40 mg PO BID #180 tab 09/26/19 10/14/19 Unknown Rx potassium chloride 20 mEq 20 meq PO DAILY 90 Days #90 tab 09/26/19 10/14/19 Unknown Rx tablet,extended release Nexium 40 mg PO DAILY 10/14/19 10/14/19 Unknown History sucralfate [Carafate] 1 g PO Q6H 10/14/19 10/14/19 Unknown History Allergies Allergy/AdvReac Type Severity Reaction Status Date / Time adhesive tape Allergy Unknown ALGY-Bliste Verified 08/31/19 15:18 r olanzapine Allergy Unknown Unknown Verified 08/05/19 14:37 PFSH Acute PFSH: Medical History Anticoagulation adequate with anticoagulant therapy ASHD (arteriosclerotic heart disease) Atrial fibrillation was taken off anticoagulation due to GI bleed, has IVC filter Piper's esophagus BPH (benign prostatic hyperplasia) Carcinoma of esophagus radiation esophagitis CHF (congestive heart failure), NYHA class I COPD (chronic obstructive pulmonary disease) CVA (cerebral vascular accident) Diabetes Dyslipidemia (high LDL; low HDL) Essential hypertension Gait disturbance Lewy body dementia with behavioral disturbance NATALI (obstructive sleep apnea) Post laminectomy syndrome Pulmonary emboli Surgical History [place] filter in place History of esophagogastroduodenoscopy (EGD) (07/24/19) resolution of Grade D esophagitis, no evidence of carcinoma Previous back surgery S/P angioplasty with stent S/P appendectomy S/P hernia repair S/P tonsillectomy ENGINEERING AND SCIENTIFIC PROGRAMMER (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 Aicha Roche ENGINEERING AND SCIENTIFIC PROGRAMMER shunt revision Family History Father CAD (coronary artery disease) Mother CAD (coronary artery disease) Hypertension Sister CAD (coronary artery disease) Diabetes Family/Other Stroke Denies family history of Anesthesia complication Bleeding disorder Social History Smoking and tobacco status: former smoker Quit status (tobacco): has quit using tobacco Alcohol intake: former Vitals/I&O/Wt Last Vital Signs Temp 99.2 F 10/14/19 17:15 Pulse 79 10/14/19 21:58 Resp 26 H 10/14/19 21:58 BP 108/54 10/14/19 21:58 Pulse Ox 96 10/14/19 21:58 Weight last 48 hrs Weight 102.512 kg Physical Exam Narrative: EXAM NARRATIVE: General exam demonstrates a confused white male, in no apparent distress HEENT: Pupils equally round. Oropharynx clear. Neck is supple no lymphadenopathy or thyromegaly Cardiovascular irregular, irregular with a 2/6 systolic murmur. Lungs a few faint expiratory wheezes. Diminished breath sounds on the left Abdomen is soft nontender, obese. No obvious organomegaly was deferred Extremities show 2+ edema bilaterally Skin no rash Neuro confused but no obvious focal deficits Data : 10/14/19 16:55 10/14/19 16:55 Other data: EKG demonstrated atrial fibrillation, normal axis, rate of 73, no acute changes. ABG demonstrated a pH 7.42, PCO2 of 35, PO2 of 125 LFTs were normal. Troponin 31, and repeat at 120 minutes 32 BNP 2038 Urinalysis negative TSH normal Rapid COVID negative Head CT negative Abdominal pelvis CT demonstrated small right effusion, left lower lobe infiltrate Chest x-ray relatively clear A&P Assessment and plan (1) Pneumonia: Community-acquired COVID negative Initiate Rocephin and azithromycin Sputum culture Blood culture Status: Acute Qualifiers: Laterality: left Lung location: lower lobe of lung Pneumonia type: due to unspecified organism Qualified Code(s): J18.9 - Pneumonia, unspecified organism (2) Acute alteration in mental status: Likely secondary to his underlying illness, superimposed on Lewy body dementia Follow closely for improvement Will need sitter Status: Acute (3) CHF (congestive heart failure): Acute on chronic heart failure, likely to be diastolic. Last echocardiogram 2018 preserved EF. Lasix 60 mg IV every 12 hours Close follow-up of electrolytes Repeat echocardiogram Status: Acute (4) Elevated troponin: Type II Status: Acute (5) COPD exacerbation: Mild acute COPD exacerbation. Prednisone 40 mg daily DuoNeb every 4 hours Status: Acute Additional A&P Information History of Lewy body dementia, with behaviors. Continue his home medication regimen. History of ENGINEERING AND SCIENTIFIC PROGRAMMER shunt Past history of CVA History of pulmonary embolism. Past history of filter placement. Currently on anticoagulation. Coronary artery disease Atrial fibrillation, currently rate controlled. Appears to be on apixaban Type 2 diabetes, diet controlled History of hypertension Hyperlipidemia Multiple other medical problems as outlined by his past medical history DNR Apixaban shall serve for anticoagulation for DVT prophylaxis as well. Attestations Medical Necessity Statement*: Will need greater than 2 midnight stay for treatment of pneumonia with IV antibiotics Time Spent in Patient Care: Greater than 35 minutes Coding Level of Care Code Acute Therapeutic Recreation Leader for g Fwd Diagnoses Pneumonia J18.9 Laterality: left Lung location: lower lobe of lung Pneumonia type: due to unspecified organism Acute alteration in mental status R41.82 CHF (congestive heart failure) I50.9 Elevated troponin R79.89 COPD exacerbation J44.1
[2019-10-14] MEDS: cefTRIAXone 1,000 MG in sodium chloride 0.9% (plus) 50 ML 100 MG IV (22:19)
[2019-10-14] MEDS: azithromycin 500 MG in sodium chloride 0.9% 250 ML 250 MG IV (23:03)
--- NOTE | 2019-10-14 23:08 | PC.NURSE ---
Patient arrived to CSU from ED at 2245.
[2019-10-14 23:27] LABS: Ammonia 19 umol/L (16-60)
[2019-10-14] MEDS: ipratropium-albuterol 3 mL Neb INHALATION (23:49)
[2019-10-15] VITALS (14 sets, daily range): BP systolic 112–174; BP diastolic 62–82; PULSE 64–93; RESP 16–27; TEMP 36.6–37; O2SAT 92–98
[2019-10-15 00:03] LABS: Troponin 5 6HR 38.19 ng/L (0-15); Troponin 5 6HR Delta 7.19 ng/L (0-12)
--- NOTE | 2019-10-15 00:15 | USCV_ITS ---
Willie Ram Age: 78 Gender: M : 1940 Exam Date: 10/15/2019 11:14 Ordering Phys: Ebenezer Naqvi MD Technologist: Dedra Sotelo [place]am Location: [facility] [place] [facility] [place] Indication: CHF BP: 113 / 70 HR: 77 Rhythm: Sinus Technical Quality: Adequate MEASUREMENTS (Male / Female) Normal Values 2D ECHO LV Diastolic Diameter PLAX 3.8 cm 4.2 - 5.9 / 3.9 - 5.3 cm LV Systolic Diameter PLAX 3.0 cm LV Chamber Size 3.2 cm IVS Diastolic Thickness 1.3 cm 0.6 - 1.0 / 0.6 - 0.9 cm IVS Systolic Thickness 1.2 cm LVPW Diastolic Thickness 1.7 cm 0.6 - 1.0 / 0.6 - 0.9 cm LVPW Systolic Thickness 1.8 cm RV Chamber Size 2.4 cm LVOT Diameter 2.0 cm LV Ejection Fraction 2D Teich 45.1 % LV Ejection Fraction MOD 2C 65.6 % LV Ejection Fraction 2C AL 64.1 % LA Diameter 4.4 cm LA Width 4.0 cm LA Height 5.5 cm RA Width 3.3 cm RA Height 4.7 cm Aorta at Sinotubular Diameter 3.0 cm M-MODE LV Diastolic Diameter MM 6.7 cm 4.2 - 5.9 / 3.9 - 5.3 cm LV Systolic Diameter MM 5.7 cm LV Ejection Fraction MM Teich 29.6 % IVS Diastolic Thickness MM 1.1 cm 0.6 - 1.0 / 0.6 - 0.9 cm IVS Systolic Thickness MM 1.4 cm LVPW Diastolic Thickness MM 1.2 cm 0.6 - 1.0 / 0.6 - 0.9 cm LVPW Systolic Thickness MM 1.9 cm Aortic Annulus Diameter 3.4 cm LA Ao Ratio MM 1.3 MV E Point Septal Separation 2.9 cm DOPPLER AV Peak Velocity 163.0 cm/s LVOT Peak Velocity 111.0 cm/s AV Area Cont Eq vti 2.0 cm squared AV Area Cont Eq pk 2.2 cm squared MV Area PHT 2.7 cm squared Mitral E to A Ratio 1.8 MV E' Velocity 15.0 cm/s Mitral E to MV E' Ratio 8.0 Mitral E to LV E' Lateral Ratio 6.5 Mitral E to LV E' Septal Ratio 10.4 TR Peak Velocity 236.0 cm/s TR Peak Gradient 22.4 mmHg TV Peak E Velocity 64.0 cm/s Right Atrial Pressure 3.0 mmHg Pulmonary Artery Systolic Pressu 25.3 mmHg PV Peak Velocity 53.0 cm/s RV Acceleration Time 0.1 s RV Ejection Time 0.3 s RV AcT/ET 0.2 FINDINGS Left Ventricle Normal left ventricular size, systolic function and wall thickness, with no regional wall motion abnormalities. LVEF is 50 to 55%. Normal left ventricular wall thickness. Diastolic function is indeterminate because of atrial fibrillation. Right Ventricle The right ventricle is normal in size and function. Right Atrium The right atrium is normal in size. Left Atrium The left atrium is normal in size. Mitral Valve Structurally normal mitral valve without significant stenosis or prolapse. There is no mitral regurgitation. Aortic Valve Structurally normal aortic valve without significant sclerosis or stenosis. There is no aortic regurgitation. Tricuspid Valve Structurally normal tricuspid valve without significant stenosis or regurgitation. Insufficient TR jet to calculate RVSP. Pulmonic Valve Structurally normal pulmonic valve without significant stenosis. There is no pulmonic regurgitation. Pericardium Normal pericardium without effusion. Aorta Normal ascending aorta dimension. CONCLUSIONS Normal LV systolic function with EF of 50 to 55%. Diastolic function is indeterminate because of atrial fibrillation. Sunil Diane MD (Electronically Signed) Final Date: 15 October 2019 16:58 S
[2019-10-15] MEDS: ipratropium-albuterol 3 mL Neb INHALATION ×5 (04:05→21:13)
[2019-10-15 04:07] LABS: Basophils % 0.1 %; Eosinophils % 0.1 %; Hematocrit 35.7 % (42.0-52.0); Hemoglobin 10.7 g/dL (11.7-16.6); Lymphocytes # 0.4 10^3/uL (0.8-4.8); Lymphocytes % 5.3 %; Mean Corpuscular Hemoglobin 25.1 pg (28.0-34.0); Mean Corpuscular Volume 83.6 fL (80-94); Monocytes # 0.2 10^3/uL (0.2-0.9); Monocytes % 1.8 %; Neutrophils # 7.68 10^3/uL (1.8-7.7); Neutrophils % 92.3 %; Nucleated Red Blood Cells % 0 %; Platelet Count 223 10^3/cmm (130-400); Red Blood Count 4.27 10^6/uL (4.1-5.3); Red Cell Distribution Width 17.5 % (12.1-15.1); White Blood Count 8.3 10^3/uL (4.0-10.0)
[2019-10-15 04:42] LABS: Anion Gap 22.7 (5-19); Blood Urea Nitrogen 13 mg/dL (8-23); Calcium 8.2 mg/dL (8.5-10.5); Carbon Dioxide 18 mmol/L (22-29); Chloride 104 mmol/L (98-107); Glucose 180 mg/dL (65-115); Osmolality Calculated 293 mOsm/kg (285-295); Potassium 3.7 mmol/L (3.5-5.1); Sodium 141 mmol/L (136-145)
[2019-10-15] MEDS: FUROsemide 10 mg/mL SDV 10mL 60 MG IVP ×2 (05:04→17:15)
[2019-10-15 06:15] LABS: Glucose Point of Care 208 mg/dL (70-110)
[2019-10-15 06:19] LABS: Estmated Average Glucose 100; Hemoglobin A1C 5.1 % (4.0-6.0)
[2019-10-15] MEDS: potassium chloride ER 10 mEq Tablet 20 MEQ PO (08:24)
[2019-10-15] MEDS: risperiDONE 1 mg Tablet 0.5 MG PO ×2 (08:25→17:14)
[2019-10-15] MEDS: predniSONE 20 mg Tablet 40 MG PO (08:25)
[2019-10-15] MEDS: tamsulosin 0.4 mg Capsule PO (08:25)
[2019-10-15] MEDS: pantoprazole DR 40 mg Tablet PO (08:26)
[2019-10-15] MEDS: apixaban 5 mg Tablet PO ×2 (08:26→17:15)
[2019-10-15] MEDS: cefTRIAXone 1,000 MG in sodium chloride 0.9% (plus) 50 ML 100 MG IV ×2 (10:59→21:02)
[2019-10-15 11:24] LABS: Glucose Point of Care 126 mg/dL (70-110)
--- NOTE | 2019-10-15 13:13 | P.PN_ITS ---
Subjective Subjective: Interval history: Chart reviewed, had 850 mL urine output overnight. Hemodynamically stable, on 2 L nasal cannula. Remains on IV diuresis with Lasix. 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 Reports that his cannot get all of his money and he needs to get it today. Sitter at bedside. Medications: Reviewed: Yes Medication Review Details: Active Medications Generic Name Dose Route Start Last Admin Trade Name Freq PRN Reason Stop Dose Admin Acetaminophen 650 mg 10/14/19 22:31 Tylenol PO Q6H PRN Mild/Mod Pain Or Temp >/= 101 Albuterol/Ipratrop ium 3 ml 10/15/19 00:00 10/15/19 13:00 Duoneb INHALATION 3 ml Q4H.RESPIRATORY S CH Administration Apixaban 5 mg 10/15/19 09:00 10/15/19 08:26 Eliquis PO 5 mg BID CULLEN Administration Dextrose 25 ml 10/15/19 04:54 D50w IVP ONCE PRN hypoglycemia prot ocol Protocol Dextrose 50 ml 10/15/19 04:54 D50w IVP PRN PRN hypoglycemia prot ocol Protocol Furosemide 60 mg 10/15/19 06:00 10/15/19 05:04 Lasix IVP 60 mg Q12H CULLEN Administration Glucagon 1 mg 10/15/19 04:54 Glucagen IM ONCE PRN Adult Acute Hypog lycemia Prot. Protocol Ceftriaxone Sodium 1,000 mg/ 50 mls @ 100 mls/ hr 10/14/19 22:00 10/15/19 10:59 Sodium Chloride IV 100 mls/hr Q12H CULLEN Administration Protocol Azithromycin 500 m g/ Sodium 250 mls @ 250 mls /hr 10/14/19 22:00 10/15/19 00:10 Chloride IV Infused Q24H CULLEN Infusion Protocol Dextrose 500 mls @ 100 mls /hr 10/15/19 04:54 D5w IV ONCE PRN Adult Acute Hypog lycemia Prot Protocol Insulin Aspart 0 unit 10/15/19 08:00 10/15/19 12:18 Novolog SUBCUT Not Given WM&BEDTIME CULLEN Protocol Ondansetron HCl 4 mg 10/14/19 22:31 Zofran IVP Q6H PRN vomiting, or N/V if npo Pantoprazole Sodiu m 40 mg 10/15/19 09:00 10/15/19 08:26 Protonix PO 40 mg DAILY CULLEN Administration Potassium Chloride 20 meq 10/15/19 09:00 10/15/19 08:24 Klor-Con 10 PO 20 meq DAILY CULLEN Administration Prednisone 40 mg 10/15/19 09:00 10/15/19 08:25 Prednisone PO 40 mg DAILY CULLEN Administration Risperidone 0.5 mg 10/15/19 09:00 10/15/19 08:25 Risperdal PO 0.5 mg BID CULLEN Administration Tamsulosin HCl 0.4 mg 10/15/19 09:00 10/15/19 08:25 Flomax PO 0.4 mg DAILY CULLEN Administration adhesive tape Allergy (Unknown, Verified 08/31/19 15:18) ALGY-Blister olanzapine Allergy (Unknown, Verified 08/05/19 14:37) Unknown Vitals/I&O/Wt Last Vital Signs Temp 97.9 F 10/15/19 10:59 Pulse 80 10/15/19 13:02 Resp 18 10/15/19 13:02 BP 113/70 10/15/19 10:59 Pulse Ox 95 10/15/19 13:02 10/14/19 10/15/19 10/15/19 22:59 06:59 14:59 Intake Total 540 / 540 600 / 600 Output Total 850 / 850 850 / 850 Balance -310 / -310 -250 / -250 Weight last 48 hrs Weight 107.161 kg Weight 102.512 kg Physical Exam Const: COMMON NORMALS: no acute distress and alert GENERAL APPEARANCE: cooperative and comfortable ORIENTATION/CONSCIOUSNESS: Yes awake and Yes confused OTHER: -thinks he is 89 and has been for 89 yrs HENMT: COMMON NORMALS: normocephalic, atraumatic, hearing grossly normal bilaterally and moist oral mucous membranes HEAD & SCALP: normocephalic and atraumatic Eye: COMMON NORMALS: Equal, round and reactive pupils present, EOMs intact bilaterally and conjunctivae normal CONJUNCTIVA: Yes conjunctivae normal PUPIL: Yes Equal, round and reactive pupils present Neck/C-Spine: COMMON NORMALS: full ROM GENERAL: Yes normal visual inspection and Yes trachea midline Resp: COMMON NORMALS: normal respiratory effort, No retractions and No use of accessory muscles EFFORT & INSPECTION: Yes able to speak in complete se ntences, Yes symmetric chest movement and No tachypneic AUSCULTATION: rhonchi and diminished lung sounds (bilateral bases) OTHER: -on 3 L NC Cardio: COMMON NORMALS: regular rate, S1 normal heart sound present, S2 normal heart sound present and No murmurs present (Cardio) RATE: regular rate RHYTHM: abnormal rhythm irregularly irregular HEART SOUNDS: S1 normal heart sound present and S2 normal heart sound present GI: COMMON NORMALS: Normal to inspection, nondistended, normoactive bowel sounds present, Soft to palpation and non-tender PALPATION: Yes Soft to palpation : BLADDER/KIDNEY EXAM: Yes catheter in place Catheter type (Male): urethral Extremity: COMMON NORMALS: normal to inspection, full ROM and no clubbing, cyanosis or edema; negative for no pedal edema Neuro: COMMON NORMALS: moves all extremities, no focal motor deficits, no sensory deficits noted and gait normal SENSORIUM/ORIENTATION: Yes alert Psych: COMMON NORMALS: mental status grossly normal, Normal thought process present, cooperative, normal affect and speech normal SPEECH: Yes normal speech THOUGHT PROCESS: Normal thought process present Skin: COMMON NORMALS: no rashes or lesions noted, no jaundice, no petechiae and no mottling GENERAL SKIN EXAM: no rashes or lesions noted Urinary Catheter Management^: [place]: Cath Placed During This Visit: yes Urethral Indwelling: Yes Reason for Continuing Indwelling Catheter: Other (accurate Is & Os with aggressive IV diuresis) Data : 10/15/19 03:22 10/15/19 03:22 Micro: Microbiology 10/14/19 23:00 Blood Culture - Preliminary Blood SPECIMEN COLLECTED 10/14/19 22:55 Blood Culture - Preliminary Blood SPECIMEN COLLECTED A&P Assessment and plan (1) CHF (congestive heart failure): -acutely decompensated diastolic CHF as evidenced by BNP elevation, edema, evidence of fluid overload on imaging -Echo: EF=50-55%, no RWMA, last one in 2018 with EF=55% -on IV diuresis with lasix -daily weights, monitor Is & Os; has [place] catheter in place -supplemental oxygen as needed -VSS; continue to monitor Status: Acute Qualifiers: Heart failure chronicity: acute on chronic Heart failure type: diastolic Qualified Code(s): I50.33 - Acute on chronic diastolic (congestive) heart failure (2) Acute alteration in mental status: -likely secondary to acute illness, has underlying Lewy body dementia with behavioral disturbance -1:1 monitoring -fall precautions, aspiration precautions -re-orient as needed -no acute findings on CT head Status: Acute (3) Pneumonia: -noted evidence of LLL infiltrate -leukocytosis resolved -on Ceftriaxone, Azithromycin -f/u blood cx, sputum cx -rapid COVID-19 test negative Status: Acute Qualifiers: Laterality: left Lung location: lower lobe of lung Pneumonia type: due to unspecified organism Qualified Code(s): J18.9 - Pneumonia, unspecified organism (4) Elevated troponin: -elevated troponins with flat trend, no significant delta -likely type II due to demand ischemia Status: Acute (5) COPD exacerbation: -supplemental oxygen as needed -Duonebs, oral steroids Status: Acute Additional A&P Information -hx of esophageal carcinoma s/p chemoradiation. Recent EGD showing grade D esophagitis, no evidence of malignancy -Obesity: BMI-33 kg/m2 -has CLOUD SOLUTIONS ARCHITECT shunt in place -hx of PE s/p IVC filter; on Eliquis -hx of atrial fibrillation; rate controlled, on telemetry -hx of NIDDM type II; A1c-5.1 -HTN -Hyperlipidemia -BPH -DVT ppx not needed as on Eliquis -GI ppx with PPI -Dispo: home -Code status: DNR/DNI Attestations Medical Necessity Statement*: Patient requires hospitalization for continued IV diuresis secondary to acutely decompensated diastolic CHF, treatment of pneumonia. Time Spent in Patient Care: Greater than 35 minutes (>than 50% of time spent in counselling and/or direct pt care on unit) . Coding Level of Care Code Acute Auto Phone Installer for [facility] Fwd Exam Comprehensive Diagnoses CHF (congestive heart failure) I50.33 Heart failure chronicity: acute on chronic Heart failure type: diastolic Acute alteration in mental status R41.82 Pneumonia J18.9 Laterality: left Lung location: lower lobe of lung Pneumonia type: due to unspecified organism Elevated troponin R79.89 COPD exacerbation J44.1
[2019-10-15 16:02] LABS: Glucose Point of Care 154 mg/dL (70-110)
[2019-10-15 21:10] LABS: Glucose Point of Care 218 mg/dL (70-110)
[2019-10-15] MEDS: azithromycin 500 MG in sodium chloride 0.9% 250 ML 250 MG IV (21:35)
[2019-10-16] VITALS (22 sets, daily range): BP systolic 124–144; BP diastolic 68–80; PULSE 70–98; RESP 17–26; TEMP 36.3–36.8; O2SAT 94–96
[2019-10-16] MEDS: ipratropium-albuterol 3 mL Neb INHALATION ×6 (03:26→20:31)
[2019-10-16 04:13] LABS: Basophils % 0.1 %; Eosinophils % 0.2 %; Hematocrit 33.9 % (42.0-52.0); Hemoglobin 10.1 g/dL (11.7-16.6); Lymphocytes # 1.1 10^3/uL (0.8-4.8); Lymphocytes % 7.6 %; Mean Corpuscular HGB Conc 29.8 g/dL (30.0-36.0); Mean Corpuscular Hemoglobin 25.2 pg (28.0-34.0); Mean Corpuscular Volume 84.5 fL (80-94); Mean Platelet Volume 10.8 fL (7.4-10.4); Monocytes # 1.3 10^3/uL (0.2-0.9); Monocytes % 9.1 %; Neutrophils # 11.49 10^3/uL (1.8-7.7); Neutrophils % 82.6 %; Nucleated Red Blood Cells % 0 %; Platelet Count 227 10^3/cmm (130-400); Red Blood Count 4.01 10^6/uL (4.1-5.3); Red Cell Distribution Width 17.4 % (12.1-15.1); White Blood Count 13.9 10^3/uL (4.0-10.0)
[2019-10-16 04:48] LABS: Anion Gap 17.8 (5-19); Blood Urea Nitrogen 23 mg/dL (8-23); Calcium 8.3 mg/dL (8.5-10.5); Carbon Dioxide 21 mmol/L (22-29); Chloride 104 mmol/L (98-107); Glucose 123 mg/dL (65-115); Osmolality Calculated 286 mOsm/kg (285-295); Potassium 3.8 mmol/L (3.5-5.1); Sodium 139 mmol/L (136-145)
[2019-10-16] MEDS: FUROsemide 10 mg/mL SDV 10mL 60 MG IVP ×2 (05:00→17:13)
[2019-10-16 06:46] LABS: Glucose Point of Care 106 mg/dL (70-110)
--- NOTE | 2019-10-16 07:21 | PC.NURSE ---
Patient resting in bed at time of assessment. Patient denies any pain and is only oriented to person. Patient states he thinks he is at home, is unaware of why he is in the hospital. No further needs identified at this time. Nurse to continue to monitor.
[2019-10-16] MEDS: predniSONE 20 mg Tablet 40 MG PO (08:37)
[2019-10-16] MEDS: risperiDONE 1 mg Tablet 0.5 MG PO ×2 (08:37→17:13)
[2019-10-16] MEDS: tamsulosin 0.4 mg Capsule PO (08:38)
[2019-10-16] MEDS: apixaban 5 mg Tablet PO ×2 (08:39→17:13)
[2019-10-16] MEDS: pantoprazole DR 40 mg Tablet PO (08:39)
[2019-10-16] MEDS: potassium chloride ER 10 mEq Tablet 20 MEQ PO (08:39)
[2019-10-16] MEDS: cefTRIAXone 1,000 MG in sodium chloride 0.9% (plus) 50 ML 100 MG IV ×2 (09:04→21:00)
--- NOTE | 2019-10-16 11:03 | P.PN_ITS ---
Subjective Subjective: Interval history: Has been diuresing quite well, had 1450 mL urine output overnight with an additional 2475 mL this morning. Total negative fluid balance of 4 L. Hemodynamically stable, afebrile, on 2 L nasal cannula. Stable hemoglobin, slight increase in leukocytosis with a white count of 13.9, stable renal function. Noted 1 out of 4 bottles from initial set of blood cultures growing gram-positive cocci in clusters. Likely contaminant but will order repeat set. Sitter at bedside, remains confused, though redirected easily. Thinks he is at home today. Medications: Reviewed: Yes Medication Review Details: Active Medications Generic Name Dose Route Start Last Admin Trade Name Freq PRN Reason Stop Dose Admin Acetaminophen 650 mg 10/14/19 22:31 Tylenol PO Q6H PRN Mild/Mod Pain Or Temp >/= 101 Albuterol/Ipratrop ium 3 ml 10/15/19 00:00 10/16/19 07:49 Duoneb INHALATION 3 ml Q4H.RESPIRATORY S CH Administration Apixaban 5 mg 10/15/19 09:00 10/16/19 08:39 Eliquis PO 5 mg BID CULLEN Administration Dextrose 25 ml 10/15/19 04:54 D50w IVP ONCE PRN hypoglycemia prot ocol Protocol Dextrose 50 ml 10/15/19 04:54 D50w IVP PRN PRN hypoglycemia prot ocol Protocol Furosemide 60 mg 10/15/19 06:00 10/16/19 05:00 Lasix IVP 60 mg Q12H CULLEN Administration Glucagon 1 mg 10/15/19 04:54 Glucagen IM ONCE PRN Adult Acute Hypog lycemia Prot. Protocol Ceftriaxone Sodium 1,000 mg/ 50 mls @ 100 mls/ hr 10/14/19 22:00 10/16/19 09:35 Sodium Chloride IV Infused Q12H CULLEN Infusion Protocol Azithromycin 500 m g/ Sodium 250 mls @ 250 mls /hr 10/14/19 22:00 10/15/19 22:41 Chloride IV Infused Q24H CULLEN Infusion Protocol Dextrose 500 mls @ 100 mls /hr 10/15/19 04:54 D5w IV ONCE PRN Adult Acute Hypog lycemia Prot Protocol Insulin Aspart 0 unit 10/15/19 08:00 10/16/19 07:03 Novolog SUBCUT Not Given WM&BEDTIME CULLEN Protocol Ondansetron HCl 4 mg 10/14/19 22:31 Zofran IVP Q6H PRN vomiting, or N/V if npo Pantoprazole Sodiu m 40 mg 10/15/19 09:00 10/16/19 08:39 Protonix PO 40 mg DAILY CULLEN Administration Potassium Chloride 20 meq 10/15/19 09:00 10/16/19 08:39 Klor-Con 10 PO 20 meq DAILY CULLEN Administration Prednisone 40 mg 10/15/19 09:00 10/16/19 08:37 Prednisone PO 40 mg DAILY CULLEN Administration Risperidone 0.5 mg 10/15/19 09:00 10/16/19 08:37 Risperdal PO 0.5 mg BID CULLEN Administration Tamsulosin HCl 0.4 mg 10/15/19 09:00 10/16/19 08:38 Flomax PO 0.4 mg DAILY CULLEN Administration adhesive tape Allergy (Unknown, Verified 08/31/19 15:18) ALGY-Blister olanzapine Allergy (Unknown, Verified 08/05/19 14:37) Unknown Vitals/I&O/Wt Last Vital Signs Temp 97.9 F 10/16/19 11:00 Pulse 81 10/16/19 11:00 Resp 24 H 10/16/19 11:00 BP 128/80 10/16/19 11:00 Pulse Ox 96 10/16/19 11:00 10/15/19 10/16/19 10/16/19 22:59 06:59 14:59 Intake Total 1040 / 1690 410 / 410 Output Total 1000 / 1850 1450 / 3300 2475 / 2475 Balance 40 / -160 -1450 / -1610 -2065 / -2065 Weight last 48 hrs Weight 106.736 kg Weight 107.161 kg Weight 102.512 kg Physical Exam Const: COMMON NORMALS: no acute distress and alert GENERAL APPEARANCE: cooperative and comfortable ORIENTATION/CONSCIOUSNESS: Yes awake and Yes confused OTHER: -thinks he is at home HENMT: COMMON NORMALS: normocephalic, atraumatic, hearing grossly normal bilaterally and moist oral mucous membranes HEAD & SCALP: normocephalic and atraumatic Eye: COMMON NORMALS: Equal, round and reactive pupils present, EOMs intact bilaterally and conjunctivae normal CONJUNCTIVA: Yes conjunctivae normal PUPIL: Yes Equal, round and reactive pupils present Neck/C-Spine: COMMON NORMALS: full ROM GENERAL: Yes normal visual inspection and Yes trachea midline Resp: COMMON NORMALS: normal respiratory effort, No retractions and No use of accessory muscles EFFORT & INSPECTION: Yes able to speak in complete sentences, Yes symmetric chest movement and No tachypneic AUSCULTATION: rhonchi and diminished lung sounds (bilateral bases) OTHER: -on 3 L NC Cardio: COMMON NORMALS: regular rate, S1 normal heart sound present, S2 normal heart sound present and No murmurs present (Cardio) RATE: regular rate RHYTHM: abnormal rhythm irregularly irregular HEART SOUNDS: S1 normal heart sound present and S2 normal heart sound present GI: COMMON NORMALS: Normal to inspection, nondistended, normoactive bowel sounds present, Soft to palpation and non-tender PALPATION: Yes Soft to palpation : BLADDER/KIDNEY EXAM: Yes catheter in place Extremity: COMMON NORMALS: normal to inspection, full ROM and no clubbing, cyanosis or edema; negative for no pedal edema Neuro: COMMON NORMALS: moves all extremities, no focal motor deficits, no sensory deficits noted and gait normal SENSORIUM/ORIENTATION: Yes alert Psych: COMMON NORMALS: mental status grossly normal, Normal thought process present, cooperative, normal affect and speech normal SPEECH: Yes normal speech THOUGHT PROCESS: Normal thought process present Skin: COMMON NORMALS: no rashes or lesions noted, no jaundice, no petechiae and no mottling GENERAL SKIN EXAM: no rashes or lesions noted Urinary Catheter Management^: [place]: Cath Placed During This Visit: no Urethral Indwelling: Yes Reason for Continuing Indwelling Catheter: Other (accurate Is & Os with aggressive IV diuresis) Data : 10/16/19 03:20 10/16/19 03:20 Micro: Microbiology 10/14/19 23:00 Blood Culture - Preliminary Blood 10/14/19 22:55 Blood Culture - Preliminary Blood NEGATIVE TO DATE A&P Assessment and plan (1) CHF (congestive heart failure): -acutely decompensated diastolic CHF as evidenced by BNP elevation, edema, evidence of fluid overload on imaging -Echo: EF=50-55%, no RWMA, last one in 2018 with EF=55% -on IV diuresis with lasix; so far has diuresed 4 L -daily weights, monitor Is & Os; has [place] catheter in place -supplemental oxygen as needed -VSS; continue to monitor Status: Acute Qualifiers: Heart failure chronicity: acute on chronic Heart failure type: diastolic Qualified Code(s): I50.33 - Acute on chronic diastolic (congestive) heart failure (2) Acute alteration in mental status: -likely secondary to acute illness, has underlying Lewy body dementia with behavioral disturbance -1:1 monitoring -fall precautions, aspiration precautions -re-orient as needed -no acute findings on CT head Status: Acute (3) Pneumonia: -noted evidence of LLL infiltrate -noted leukocytosis today; continue to trend WBC -on Ceftriaxone, Azithromycin -blood cx: 02/15 bottles positive for GPC in clusters, likely contaminant, repeat set ordered -pending sample for sputum cx -rapid COVID-19 test negative Status: Acute Qualifiers: Laterality: left Lung location: lower lobe of lung Pneumonia type: due to unspecified organism Qualified Code(s): J18.9 - Pneumonia, unspecified organism (4) Elevated troponin: -elevated troponins with flat trend, no significant delta -likely type II due to demand ischemia Status: Acute (5) COPD exacerbation: -supplemental oxygen as needed -Duonebs, oral steroids -not oxygen dependent at baseline; home oxygen evaluation if still requiring oxygen prior to d/c Status: Acute Additional A&P Information -hx of esophageal carcinoma s/p chemoradiation. 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 Time Spent in Patient Care: 16 - 35 minutes (>than 50% of time spent in counselling and/or direct pt care on unit) . Coding Level of Care Code Acute Market Research Intern for [facility] Fwd Exam Comprehensive Diagnoses CHF (congestive heart failure) I50.33 Heart failure chronicity: acute on chronic Heart failure type: diastolic Acute alteration in mental status R41.82 Pneumonia J18.9 Laterality: left Lung location: lower lobe of lung Pneumonia type: due to unspecified organism Elevated troponin R79.89 COPD exacerbation J44.1
[2019-10-16 11:12] LABS: Glucose Point of Care 158 mg/dL (70-110)
--- NOTE | 2019-10-16 11:22 | PC.CHAP ---
Pastoral Care Encounter/Spiritual Assessment Type of Contact [] Declined taping machine operator visit [] Patient/Family/Request visit [] Outpatient visit [] Follow-up visit [] Physician referral [] Code/Alert [x] Routine visit [] Staff referral [] Actively dying [] Patient sleeping [] Family support [] [] Out of room [] Palliative care [] [x] Receiving care in room [] Pre-surgical visit [] Trauma [] Long length of stay [] ICU visit [] Other: Relational/Emotional Strength [] Patient feels connected with others/family/visitors/staff [x] Distress [] Loneliness/isolation [] Abandonment Spirituality of Patient [] Person of Tanja [] Attends Anabaptist of their Tanja [] Believes in Prayer [] Reads Bible or Episcopalian materials [] There are Spiritual issues to be addressed Iron Setter Interventions [] Prayer [] Active listening [] Non-anxious presence [] Spiritual/emotional support [] Crisis/trauma care [] Spiritual counseling [] Bereavement support [] Provided bereavement packet [] Provided Bible/devotional materials [] Provided toy/stuffed animal, coloring book to patient or family member [] Provided Communion [] Anointing/[place] [] Salvation [] Completed spiritual assessment [] Other: Impact on Illness or Injury [] Angry [] Fearful [x] Anxious [] Often cries [] Exhaustion [] Unable to work [] Unable to attend methodist [] Unable to walk/stand [] Unable to read [] Unable to drive [] Unable to eat/drink [] Unable to sleep [] Unable to be with family [] Patient intubated [] Other: Summary Was able to communicate with him, he doesn't know what needs to be done about his health, some confussion Time spent with patient 10mins
--- NOTE | 2019-10-16 13:36 | PC.NURSE ---
Patient ambulated in hallway with PT. Patient tolerated activity well. O2 sats remained in mid to high 90s on RA with activity. Patient sitting in chair. Nurse to continue to monitor.
[2019-10-16 16:55] LABS: Glucose Point of Care 148 mg/dL (70-110)
--- NOTE | 2019-10-16 18:04 | PC.NURSE ---
Patient has had uneventful shift, resting in bed watching tv at this time. No needs identified at this time. Nurse to continue to monitor.
[2019-10-16 20:01] LABS: Glucose Point of Care 182 mg/dL (70-110)
[2019-10-16] MEDS: azithromycin 500 MG in sodium chloride 0.9% 250 ML 250 MG IV (21:32)
[2019-10-17] VITALS (16 sets, daily range): BP systolic 119–154; BP diastolic 76–92; PULSE 83–100; RESP 16–26; TEMP 36.4–37.4; O2SAT 90–98
[2019-10-17] MEDS: ipratropium-albuterol 3 mL Neb INHALATION ×4 (01:00→15:19)
[2019-10-17 03:58] LABS: Basophils % 0.2 %; Eosinophils # 0.1 10^3/uL (0.0-0.8); Hematocrit 36.2 % (42.0-52.0); Hemoglobin 10.8 g/dL (11.7-16.6); Lymphocytes # 1.6 10^3/uL (0.8-4.8); Lymphocytes % 12.9 %; Mean Corpuscular HGB Conc 29.8 g/dL (30.0-36.0); Mean Corpuscular Hemoglobin 24.6 pg (28.0-34.0); Mean Corpuscular Volume 82.5 fL (80-94); Mean Platelet Volume 10.5 fL (7.4-10.4); Monocytes # 1.1 10^3/uL (0.2-0.9); Monocytes % 8.8 %; Neutrophils # 9.34 10^3/uL (1.8-7.7); Neutrophils % 76.4 %; Nucleated Red Blood Cells % 0 %; Platelet Count 261 10^3/cmm (130-400); Red Blood Count 4.39 10^6/uL (4.1-5.3); Red Cell Distribution Width 17.3 % (12.1-15.1); White Blood Count 12.2 10^3/uL (4.0-10.0)
[2019-10-17 04:38] LABS: Anion Gap 12.7 (5-19); Blood Urea Nitrogen 27 mg/dL (8-23); Calcium 8.4 mg/dL (8.5-10.5); Carbon Dioxide 28 mmol/L (22-29); Chloride 103 mmol/L (98-107); Glucose 103 mg/dL (65-115); Osmolality Calculated 287 mOsm/kg (285-295); Potassium 3.7 mmol/L (3.5-5.1); Sodium 140 mmol/L (136-145)
[2019-10-17] MEDS: FUROsemide 10 mg/mL SDV 10mL 60 MG IVP (05:08)
[2019-10-17 06:06] LABS: Glucose Point of Care 101 mg/dL (70-110)
--- NOTE | 2019-10-17 07:20 | PC.NURSE ---
Patient resting in bed at time of assessment. Patient denies any pain. Patient assisted into chair for breakfast, tolerated activity well. No further needs identified at this time.
[2019-10-17] MEDS: tamsulosin 0.4 mg Capsule PO (08:02)
[2019-10-17] MEDS: predniSONE 20 mg Tablet 40 MG PO (08:02)
[2019-10-17] MEDS: pantoprazole DR 40 mg Tablet PO (08:02)
[2019-10-17] MEDS: potassium chloride ER 10 mEq Tablet 20 MEQ PO (08:03)
[2019-10-17] MEDS: risperiDONE 1 mg Tablet 0.5 MG PO (08:03)
[2019-10-17] MEDS: apixaban 5 mg Tablet PO (08:03)
--- NOTE | 2019-10-17 08:50 | PC.SOCIAL ---
IMM Page 2 of IMM given to patient. Initialed, dated, and timed and placed in chart. Copy provided to patient.
[2019-10-17] MEDS: cefTRIAXone 1,000 MG in sodium chloride 0.9% (plus) 50 ML 100 MG IV ×2 (09:39→21:27)
--- NOTE | 2019-10-17 10:18 | PM.PN ---
Subjective Subjective: Interval history: Had excellent urine output overnight, 3850 mL with an additional 1250mL this AM already. Has diuresed about 10 L so far. Hemodynamically stable, afebrile, sitter remains at bedside due to confusion. Decreased leukocytosis, stable renal function and Hg. sitting in chair by bedside, in good spirits, good appetite, has had bowel movement this morning. Shortly after lunch noted to have some nausea and non-bloody non-bilious vomiting, had at least 2-3 episodes of the same, food particles noted, urine in Saln[place] catheter noted to be more concentrated. Will keep n.p.o. for now and order a KUB. Patient had had an abdominal CT scan on 10/13 showing no acute abnormalities other than left lower lobe infiltrate. Does not appear overtly tender during my evaluation but does endorse some soreness, unsure if he is passing gas. Remains obese and may be distended. Medications: Reviewed: Yes Medication Review Details: Active Medications Generic Name Dose Route Start Last Admin Trade Name Freq PRN Reason Stop Dose Admin Acetaminophen 650 mg 10/14/19 22:31 Tylenol PO Q6H PRN Mild/Mod Pain Or Temp >/= 101 Albuterol/Ipratrop ium 3 ml 10/15/19 00:00 10/17/19 07:25 Duoneb INHALATION 3 ml Q4H.RESPIRATORY S CH Administration Apixaban 5 mg 10/15/19 09:00 10/17/19 08:03 Eliquis PO 5 mg BID CULLEN Administration Dextrose 25 ml 10/15/19 04:54 D50w IVP ONCE PRN hypoglycemia prot ocol Protocol Dextrose 50 ml 10/15/19 04:54 D50w IVP PRN PRN hypoglycemia prot ocol Protocol Furosemide 60 mg 10/15/19 06:00 10/17/19 05:08 Lasix IVP 60 mg Q12H CULLEN Administration Glucagon 1 mg 10/15/19 04:54 Glucagen IM ONCE PRN Adult Acute Hypog lycemia Prot. Protocol Ceftriaxone Sodium 1,000 mg/ 50 mls @ 100 mls/ hr 10/14/19 22:00 10/17/19 09:39 Sodium Chloride IV 100 mls/hr Q12H CULLEN Administration Protocol Azithromycin 500 m g/ Sodium 250 mls @ 250 mls /hr 10/14/19 22:00 10/16/19 22:32 Chloride IV Infused Q24H CULLEN Infusion Protocol Dextrose 500 mls @ 100 mls /hr 10/15/19 04:54 D5w IV ONCE PRN Adult Acute Hypog lycemia Prot Protocol Insulin Aspart 0 unit 10/15/19 08:00 10/17/19 06:18 Novolog SUBCUT Not Given WM&BEDTIME CULLEN Protocol Ondansetron HCl 4 mg 10/14/19 22:31 Zofran IVP Q6H PRN vomiting, or N/V if npo Pantoprazole Sodiu m 40 mg 10/15/19 09:00 10/17/19 08:02 Protonix PO 40 mg DAILY CULLEN Administration Potassium Chloride 20 meq 10/15/19 09:00 10/17/19 08:03 Klor-Con 10 PO 20 meq DAILY CULLEN Administration Prednisone 40 mg 10/15/19 09:00 10/17/19 08:02 Prednisone PO 40 mg DAILY CULLEN Administration Risperidone 0.5 mg 10/15/19 09:00 10/17/19 08:03 Risperdal PO 0.5 mg BID CULLEN Administration Tamsulosin HCl 0.4 mg 10/15/19 09:00 10/17/19 08:02 Flomax PO 0.4 mg DAILY CULLEN Administration adhesive tape Allergy (Unknown, Verified 08/31/19 15:18) ALGY-Blister olanzapine Allergy (Unknown, Verified 08/05/19 14:37) Unknown Vitals/I&O/Wt Last Vital Signs Temp 98.2 F 10/17/19 07:20 Pulse 87 10/17/19 07:28 Resp 18 10/17/19 07:23 BP 133/81 10/17/19 07:20 Pulse Ox 96 10/17/19 07:23 10/16/19 10/17/19 10/17/19 22:59 06:59 14:59 Intake Total 1020 / 1550 120 / 1670 360 / 360 Output Total 4500 / 6975 1850 / 8825 1250 / 1250 Balance -3480 / -5425 -1730 / -7155 -890 / -890 Weight last 48 hrs Weight 103.674 kg Weight 106.736 kg Physical Exam Const: COMMON NORMALS: no acute distress and alert GENERAL APPEARANCE: cooperative and comfortable ORIENTATION/CONSCIOUSNESS: Yes awake and Yes confused HENMT: COMMON NORMALS: normocephalic, atraumatic, hearing grossly normal bilaterally and moist oral mucous membranes HEAD & SCALP: normocephalic and atraumatic Eye: COMMON NORMALS: Equal, round and reactive pupils present, EOMs intact bilaterally and conjunctivae normal CONJUNCTIVA: Yes conjunctivae normal PUPIL: Yes Equal, round and reactive pupils present Neck/C-Spine: COMMON NORMALS: full ROM GENERAL: Yes normal visual inspection and Yes trachea midline Resp: COMMON NORMALS: normal respiratory effort, No retractions and No use of accessory muscles EFFORT & INSPECTION: Yes able to speak in complete sentences, Yes symmetric chest movement and No tachypneic AUSCULTATION: rhonchi and diminished lung sounds (bilateral bases) OTHER: -on RA Cardio: COMMON NORMALS: regular rate, S1 normal heart sound present, S2 normal heart sound present and No murmurs present (Cardio) RATE: regular rate RHYTHM: abnormal rhythm irregularly irregular HEART SOUNDS: S1 normal heart sound present and S2 normal heart sound present GI: COMMON NORMALS: Soft to palpation and non-tender INSPECTION: Yes abdominal distension and Yes central obesity PALPATION: Yes Soft to palpation, No Guarding due to palpation present (GI) and No Rigid due to palpation : BLADDER/KIDNEY EXAM: Yes catheter in place Extremity: COMMON NORMALS: normal to inspection, full ROM and no clubbing, cyanosis or edema; negative for no pedal edema Neuro: COMMON NORMALS: moves all extremities and no focal motor deficits SENSORIUM/ORIENTATION: Yes alert and Yes other (confused) Psych: COMMON NORMALS: mental status grossly normal, Normal thought process present, cooperative, normal affect and speech normal SPEECH: Yes normal speech THOUGHT PROCESS: Normal thought process present Skin: COMMON NORMALS: no rashes or lesions noted, no jaundice, no petechiae and no mottling GENERAL SKIN EXAM: no rashes or lesions noted Urinary Catheter Management^: [place]: Cath Placed During This Visit: yes Urethral Indwelling: Yes Reason for Continuing Indwelling Catheter: Acute Urinary Retention or Obstruction Urinary Catheter Date of Insertion: 10/14/19 Urinary Catheter Time of Insertion: 17:00 Data : 10/17/19 03:40 10/17/19 03:40 Micro: Microbiology 10/14/19 23:00 Blood Culture - Preliminary Blood Gram positive cocci 10/16/19 12:10 Blood Culture - Preliminary Blood SPECIMEN COLLECTED 10/16/19 12:10 Blood Culture - Preliminary Blood SPECIMEN COLLECTED A&P Assessment and plan (1) CHF (congestive heart failure): -acutely decompensated diastolic CHF as evidenced by BNP elevation, edema, evidence of fluid overload on imaging -Echo: EF=50-55%, no RWMA, last one in 2018 with EF=55% -on IV diuresis with lasix; so far has diuresed 10 L -daily weights, monitor Is & Os; has [place] catheter in place -supplemental oxygen as needed -VSS; continue to monitor Status: Acute Qualifiers: Heart failure chronicity: acute on chronic Heart failure type: diastolic Qualified Code(s): I50.33 - Acute on chronic diastolic (congestive) heart failure (2) Acute alteration in mental status: -likely secondary to acute illness, has underlying Lewy body dementia with behavioral disturbance -1:1 monitoring -fall precautions, aspiration precautions -re-orient as needed -no acute findings on CT head Status: Acute (3) Pneumonia: -noted evidence of LLL infiltrate -noted leukocytosis today; continue to trend WBC -on Ceftriaxone, Azithromycin -blood cx: 02/15 bottles positive for GPC in clusters, likely contaminant, repeat set pending -pending sample for sputum cx -rapid COVID-19 test negative Status: Acute Qualifiers: Laterality: left Lung location: lower lobe of lung Pneumonia type: due to unspecified organism Qualified Code(s): J18.9 - Pneumonia, unspecified organism (4) Elevated troponin: -elevated troponins with flat trend, no significant delta -likely type II due to demand ischemia Status: Acute (5) COPD exacerbation: -supplemental oxygen as needed -Duonebs, oral steroids -not oxygen dependent at baseline; home oxygen evaluation if still requiring oxygen prior to d/c Status: Acute Additional A&P Information -hx of esophageal carcinoma s/p chemoradiation. 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 -DVT ppx not needed as on Eliquis -GI ppx with PPI -Dispo: home, lives with ; services requested -Code status: DNR/DNI Attestations Medical Necessity Statement*: Patient requires hospitalization for continued IV diuresis, treatment of pneumonia. Time Spent in Patient Care: 16 - 35 minutes (>than 50% of time spent in counselling and/or direct pt care on unit). Coding Level of Care Code Acute Applications Analyst for [facility] Fwd Exam Comprehensive Diagnoses CHF (congestive heart failure) I50.33 Heart failure chronicity: acute on chronic Heart failure type: diastolic Acute alteration in mental status R41.82 Pneumonia J18.9 Laterality: left Lung location: lower lobe of lung Pneumonia type: due to unspecified organism Elevated troponin R79.89 COPD exacerbation J44.1
[2019-10-17 11:37] LABS: Glucose Point of Care 143 mg/dL (70-110)
--- NOTE | 2019-10-17 13:13 | PC.CHAP ---
Pastoral Care Encounter/Spiritual Assessment Type of Contact [] Declined linoleum printer visit [] Patient/Family/Request visit [] Outpatient visit [] Follow-up visit [] Physician referral [] Code/Alert [] Routine visit [] Staff referral [] Actively dying [] Patient sleeping [] Family support [] [] Out of room [] Palliative care [] [x] Receiving care in room [] Pre-surgical visit [] Trauma [x] Long length of stay [x] ICU visit [] Other: Relational/Emotional Strength [] Patient feels connected with others/family/visitors/staff [] Distress [] Loneliness/isolation [] Abandonment Spirituality of Patient [] Person of Tanja [] Attends Pentecostal of their Tanja [] Believes in Prayer [] Reads Bible or Denominational materials [] There are Spiritual issues to be addressed Crossband Layer Interventions [] Prayer [] Active listening [] Non-anxious presence [] Spiritual/emotional support [] Crisis/trauma care [] Spiritual counseling [] Bereavement support [] Provided bereavement packet [] Provided Bible/devotional materials [] Provided toy/stuffed animal, coloring book to patient or family member [] Provided Communion [] Anointing/[place] [] Salvation [] Completed spiritual assessment [] Other: Impact on Illness or Injury [] Angry [] Fearful [] Anxious [] Often cries [] Exhaustion [] Unable to work [] Unable to attend yazdanism [] Unable to walk/stand [] Unable to read [] Unable to drive [] Unable to eat/drink [] Unable to sleep [] Unable to be with family [] Patient intubated [] Other: Summary Patient was busy at the time of the linoleum printer visit. Crossband Layer referred patient for a follow- up visit by on-coming linoleum printer. Patient visit attempted by Crossband Layer Bakari Langston Time spent with patient 4 minutes
[2019-10-17] MEDS: ondansetron 2 mg/ML SDV 2 mL 4 MG IVP (13:32)
--- NOTE | 2019-10-17 16:02 | PC.NURSE ---
Physician notification Dr. Alexander updated on patient condition. Patient vomited at 1330 following a coughing episode. Zofran was administered. No further intervention was necessary. Following duoneb at 1530, patient vomited again. VSS. Dr. Alexander notified. Physician to put duonebs on hold. Nurse to continue to monitor.
--- NOTE | 2019-10-17 16:28 | XRR_ITS ---
PROCEDURE INFORMATION: Exam: XR Abdomen, 1 View Exam date and time: 10/17/2019 5:06 PM Age: 78 years old Clinical indication: Nausea and vomiting; Additional info: Nausea, vomiting TECHNIQUE: Imaging protocol: XR of the abdomen. Views: Frontal supine view of the abdomen. 1 View. COMPARISON: CT abdomen pelvis w con* [id number] 10/14/2019 7:21 PM FINDINGS: Tubes, catheters and devices: Peritoneal catheter tip position right abdomen. Gastrointestinal tract: Scattered moderate gas distention of bowel with small bowel distension centrally. Scattered colonic fecal debris. Small intraluminal collection of air in the stomach. Vasculature: Muscular filter centrally right of midline. Bones/joints: Degenerative change of the spine. XR/XR KUB portable [id number] IMPRESSION: Gas distention of small bowel centrally which could reflect reactive ileus. Limitation for detailed gas pattern assessment by the lack of decubitus or upright images.
--- NOTE | 2019-10-17 16:36 | PC.NURSE ---
Dr. Alexander notified of additional vomiting episode of undigested food. Physician to put in orders.
[2019-10-17 16:53] LABS: Glucose Point of Care 160 mg/dL (70-110)
--- NOTE | 2019-10-17 16:56 | PC.NURSE ---
Dr. Alexander gave telephone order to non administer 1800 insulin dose as patient is now NPO. Physician updated that patient has vomited two more times. KUB has been obtained.
--- NOTE | 2019-10-17 18:35 | PC.NURSE ---
Dr. Alexander at bedside to evaluate patient. Verbal order received to wait to administer evening medications until further work up is done. Keep patient NPO. RBVO. Nurse to continue to monitor.
[2019-10-17] MEDS: alum-mag-hydroxide-sime 30 mL UDC PO (19:31)
[2019-10-17 20:26] LABS: Glucose Point of Care 130 mg/dL (70-110)
--- NOTE | 2019-10-17 20:57 | PC.RESP ---
PT's 2000 duoneb dose not given, order placed on hold.
[2019-10-17] MEDS: azithromycin 500 MG in sodium chloride 0.9% 250 ML 250 MG IV (21:28)
[2019-10-18] MEDS: acetaminophen 325 mg Tablet 650 MG PO (03:01)
[2019-10-18 04:00] VITALS: BP 139/79; PULSE 81; RESP 20; TEMP 36.8; O2SAT 90
[2019-10-18] MEDS: FUROsemide 10 mg/mL SDV 10mL 60 MG IVP (05:59)
[2019-10-18] MEDS: ondansetron 2 mg/ML SDV 2 mL 4 MG IVP (06:05)
[2019-10-18 06:31] LABS: Glucose Point of Care 100 mg/dL (70-110)
[2019-10-18 06:38] LABS: Blood Urea Nitrogen 30 mg/dL (8-23); Calcium 8.7 mg/dL (8.5-10.5); Carbon Dioxide 26 mmol/L (22-29); Chloride 103 mmol/L (98-107); Glucose 94 mg/dL (65-115); Osmolality Calculated 285 mOsm/kg (285-295); Sodium 139 mmol/L (136-145)
[2019-10-18 07:21] LABS: Basophils % 0.2 %; Eosinophils # 0.3 10^3/uL (0.0-0.8); Eosinophils % 2.3 %; Hematocrit 38.3 % (42.0-52.0); Hemoglobin 11.7 g/dL (11.7-16.6); Lymphocytes # 1.4 10^3/uL (0.8-4.8); Lymphocytes % 11.7 %; Mean Corpuscular HGB Conc 30.5 g/dL (30.0-36.0); Mean Corpuscular Hemoglobin 24.9 pg (28.0-34.0); Mean Corpuscular Volume 81.7 fL (80-94); Mean Platelet Volume 10.4 fL (7.4-10.4); Monocytes # 1.2 10^3/uL (0.2-0.9); Monocytes % 9.9 %; Neutrophils # 8.72 10^3/uL (1.8-7.7); Neutrophils % 75.4 %; Nucleated Red Blood Cells % 0 %; Platelet Count 288 10^3/cmm (130-400); Red Blood Count 4.69 10^6/uL (4.1-5.3); Red Cell Distribution Width 17.2 % (12.1-15.1); White Blood Count 11.6 10^3/uL (4.0-10.0)
[2019-10-18 08:00] VITALS: BP 131/72; PULSE 83; RESP 18; TEMP 36.9; O2SAT 95
[2019-10-18] MEDS: predniSONE 20 mg Tablet 40 MG PO (09:42)
[2019-10-18] MEDS: apixaban 5 mg Tablet PO ×2 (09:42→17:58)
[2019-10-18] MEDS: tamsulosin 0.4 mg Capsule PO (09:42)
[2019-10-18] MEDS: risperiDONE 1 mg Tablet 0.5 MG PO ×2 (09:42→17:58)
--- NOTE | 2019-10-18 09:42 | P.PN_ITS ---
Subjective Subjective: Interval history: No nausea or vomiting overnight, will start on clear liquid diet. Had 1400 mL urine output overnight for total negative fluid balance of 11.4 L. Decreased leukocytosis with a white count of 11.6, stable hemoglobin at 11.2, stable creatinine at 1.1. On room air. KUB noted with some gas distention in the small bowel. Reports been hungry, will advance diet as tolerated. Has coughing spells with intermittent emesis. Medications: Reviewed: Yes Medication Review Details: Active Medications Generic Name Dose Route Start Last Admin Trade Name Freq PRN Reason Stop Dose Admin Acetaminophen 650 mg 10/14/19 22:31 10/18/19 03:01 Tylenol PO 650 mg Q6H PRN Administration Mild/Mod Pain Or Temp >/= 101 Albuterol/Ipratrop ium 3 ml 10/15/19 00:00 10/17/19 15:19 Duoneb INHALATION 3 ml Q4H.RESPIRATORY S CH Administration Apixaban 5 mg 10/15/19 09:00 10/17/19 19:35 Eliquis PO Not Given BID CULLEN Dextrose 25 ml 10/15/19 04:54 D50w IVP ONCE PRN hypoglycemia prot ocol Protocol Dextrose 50 ml 10/15/19 04:54 D50w IVP PRN PRN hypoglycemia prot ocol Protocol Furosemide 60 mg 10/15/19 06:00 10/18/19 05:59 Lasix IVP 60 mg Q12H CULLEN Administration Glucagon 1 mg 10/15/19 04:54 Glucagen IM ONCE PRN Adult Acute Hypog lycemia Prot. Protocol Ceftriaxone Sodium 1,000 mg/ 50 mls @ 100 mls/ hr 10/14/19 22:00 10/17/19 21:27 Sodium Chloride IV 100 mls/hr Q12H CULLEN Administration Protocol Azithromycin 500 m g/ Sodium 250 mls @ 250 mls /hr 10/14/19 22:00 10/17/19 21:28 Chloride IV 250 mls/hr Q24H CULLEN Administration Protocol Dextrose 500 mls @ 100 mls /hr 10/15/19 04:54 D5w IV ONCE PRN Adult Acute Hypog lycemia Prot Protocol Insulin Aspart 0 unit 10/15/19 08:00 10/18/19 07:06 Novolog SUBCUT Not Given WM&BEDTIME CULLEN Protocol Ondansetron HCl 4 mg 10/17/19 16:29 10/18/19 06:05 Zofran IVP 4 mg Q4H PRN Administration vomiting, or N/V if npo Pantoprazole Sodiu m 40 mg 10/15/19 09:00 10/17/19 08:02 Protonix PO 40 mg DAILY CULLEN Administration Potassium Chloride 20 meq 10/15/19 09:00 10/17/19 08:03 Klor-Con 10 PO 20 meq DAILY CULLEN Administration Prednisone 40 mg 10/15/19 09:00 10/17/19 08:02 Prednisone PO 40 mg DAILY CULLEN Administration Risperidone 0.5 mg 10/15/19 09:00 10/17/19 19:36 Risperdal PO Not Given BID CULLEN Tamsulosin HCl 0.4 mg 10/15/19 09:00 10/17/19 08:02 Flomax PO 0.4 mg DAILY CULLEN Administration adhesive tape Allergy (Unknown, Verified 08/31/19 15:18) ALGY-Blister olanzapine Allergy (Unknown, Verified 08/05/19 14:37) Unknown Vitals/I&O/Wt Last Vital Signs Temp 98.3 F 10/18/19 04:00 Pulse 81 10/18/19 04:00 Resp 20 H 10/18/19 04:00 BP 139/79 10/18/19 04:00 Pulse Ox 90 10/18/19 04:00 10/17/19 10/18/19 10/18/19 22:59 06:59 14:59 Intake Total 0 / 770 Output Total 200 / 1950 1200 / 3150 Balance -200 / -1180 -1200 / -2380 Weight last 48 hrs Weight 102.875 kg Weight 103.674 kg Physical Exam Const: COMMON NORMALS: no acute distress and alert GENERAL APPEARANCE: c ooperative and comfortable ORIENTATION/CONSCIOUSNESS: Yes awake and Yes confused HENMT: COMMON NORMALS: normocephalic, atraumatic, hearing grossly normal bilaterally and moist oral mucous membranes HEAD & SCALP: normocephalic and atraumatic Eye: COMMON NORMALS: Equal, round and reactive pupils present, EOMs intact bilaterally and conjunctivae normal CONJUNCTIVA: Yes conjunctivae normal PUPIL: Yes Equal, round and reactive pupils present Neck/C-Spine: COMMON NORMALS: full ROM GENERAL: Yes normal visual inspection and Yes trachea midline Resp: COMMON NORMALS: normal respiratory effort, No retractions and No use of accessory muscles EFFORT & INSPECTION: Yes able to speak in complete sentences, Yes symmetric chest movement and No tachypneic AUSCULTATION: rhonchi and diminished lung sounds (bilateral bases) OTHER: -on RA Cardio: COMMON NORMALS: regular rate, S1 normal heart sound present, S2 normal heart sound present and No murmurs present (Cardio) RATE: regular rate RHYTHM: abnormal rhythm irregularly irregular HEART SOUNDS: S1 normal heart sound present and S2 normal heart sound present GI: COMMON NORMALS: Soft to palpation and non-tender INSPECTION: Yes abdominal distension and Yes central obesity PALPATION: Yes Soft to palpation, No Guarding due to palpation present (GI) and No Rigid due to palpation : BLADDER/KIDNEY EXAM: Yes catheter in place Extremity: COMMON NORMALS: normal to inspection, full ROM and no clubbing, cyanosis or edema; negative for no pedal edema Neuro: COMMON NORMALS: moves all extremities and no focal motor deficits SENSORIUM/ORIENTATION: Yes alert and Yes other (confused) Psych: COMMON NORMALS: mental status grossly normal, Normal thought process present, cooperative, normal affect and speech normal SPEECH: Yes normal speech THOUGHT PROCESS: Normal thought process present Skin: COMMON NORMALS: no rashes or lesions noted, no jaundice, no petechiae and no mottling GENERAL SKIN EXAM: no rashes or lesions noted Urinary Catheter Management^: [place]: Cath Placed During This Visit: yes Urethral Indwelling: Yes Reason for Continuing Indwelling Catheter: Acute Urinary Retention or Obstruction Urinary Catheter Date of Insertion: 10/14/19 Urinary Catheter Time of Insertion: 17:00 Data : 10/18/19 06:52 10/18/19 05:50 Micro: Microbiology 10/14/19 23:00 Blood Culture - Preliminary Blood Coagulase negativ staphylococc 10/16/19 12:10 Blood Culture - Preliminary Blood NEGATIVE TO DATE 10/16/19 12:10 Blood Culture - Preliminary Blood NEGATIVE TO DATE A&P Assessment and plan (1) CHF (congestive heart failure): -acutely decompensated diastolic CHF as evidenced by BNP elevation, edema, evidence of fluid overload on imaging -Echo: EF=50-55%, no RWMA, last one in 2018 with EF=55% -on IV diuresis with lasix; so far has diuresed 11 L -daily weights, monitor Is & Os; has [place] catheter in place -supplemental oxygen as needed -VSS; continue to monitor Status: Acute Qualifiers: Heart failure chronicity: acute on chronic Heart failure type: diastolic Qualified Code(s): I50.33 - Acute on chronic diastolic (congestive) heart failure (2) Acute alteration in mental status: -likely secondary to acute illness, has underlying Lewy body dementia with behavioral disturbance -1:1 monitoring -fall precautions, aspiration precautions -re-orient as needed -no acute findings on CT head Status: Acute (3) Pneumonia: -noted evidence of LLL infiltrate -noted leukocytosis today; continue to trend WBC -on Ceftriaxone, Azithromycin -blood cx: 02/15 bottles positive for coagulase-negative staph, likely contaminant, repeat set prelim negative -pending sample for sputum cx -rapid COVID-19 test negative -repeat CXR today to monitor progression Status: Acute Qualifiers: Laterality: left Lung location: lower lobe of lung Pneumonia type: due to unspecified organism Qualified Code(s): J18.9 - Pneumonia, unspecified organism (4) Elevated troponin: -elevated troponins with flat trend, no significant delta -likely type II due to demand ischemia Status: Acute (5) COPD exacerbation: -supplemental oxygen as needed -Duonebs, oral steroids -not oxygen dependent at baseline; home oxygen evaluation if still requiring oxygen prior to d/c Status: Acute Additional A&P Information -hx of esophageal carcinoma s/p chemoradiation. 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 Episodes of emesis seem to have occurred after receiving nebulizer treatments. Per medication list has been on albuterol nebulization at home will discontinue duo nebs and resume albuterol nebs as needed and monitor response -DVT ppx not needed as on Eliquis -GI ppx with PPI -Dispo: home, lives with ; services requested -Code status: DNR/DNI Attestations Medical Necessity Statement*: Patient requires hospitalization for continued diuresis secondary to acutely decompensated diastolic CHF and treatment of pneumonia. Time Spent in Patient Care: 16 - 35 minutes (>than 50% of time spent in counselling and/or direct pt care on unit) . Coding Level of Care Code Acute Mental Health Counselor for [facility] Fwd Exam Comprehensive Diagnoses CHF (congestive heart failure) I50.33 Heart failure chronicity: acute on chronic Heart failure type: diastolic Acute alteration in mental status R41.82 Pneumonia J18.9 Laterality: left Lung location: lower lobe of lung Pneumonia type: due to unspecified organism Elevated troponin R79.89 COPD exacerbation J44.1
[2019-10-18] MEDS: cefTRIAXone 1,000 MG in sodium chloride 0.9% (plus) 50 ML 100 MG IV ×2 (09:43→21:32)
[2019-10-18] MEDS: potassium chloride ER 10 mEq Tablet 20 MEQ PO (09:43)
[2019-10-18] MEDS: pantoprazole DR 40 mg Tablet PO (09:43)
[2019-10-18 10:21] VITALS: PULSE 90; RESP 20; O2SAT 92
[2019-10-18 11:28] LABS: Glucose Point of Care 108 mg/dL (70-110)
[2019-10-18 12:00] VITALS: BP 114/70; PULSE 85; RESP 22; O2SAT 98
--- NOTE | 2019-10-18 13:19 | PC.NURSE ---
pt is very cooperative and in calm mood.pt was pulling at left forearm iv earlier this morning...coban removed and iv noted to be out..and a red rash noted at coban contact site.pt stated that it itched.lotion applied and he stated that it felt much better.iv restarted in right forearm.pt tolerated well.no coughing noted after breathing treatment ,meals,oral medications.occas episodes of nonproductive coughing noted but not associated with anything in particular.lasix to be changed to oral today from iv.
[2019-10-18 16:00] VITALS: BP 128/63; PULSE 81; RESP 21; O2SAT 97
[2019-10-18] MEDS: FUROsemide 40 mg Tablet PO (16:22)
[2019-10-18 16:48] LABS: Glucose Point of Care 143 mg/dL (70-110)
[2019-10-18 20:00] VITALS: BP 126/68; PULSE 87; RESP 17
[2019-10-18 20:23] LABS: Glucose Point of Care 122 mg/dL (70-110)
--- NOTE | 2019-10-18 20:43 | XRR_ITS ---
PROCEDURE INFORMATION: Exam: XR Chest, 1 View Exam date and time: 10/18/2019 10:48 PM Age: 78 years old Clinical indication: Other: Progression of infection TECHNIQUE: Imaging protocol: XR of the chest Views: 1 view. COMPARISON: CR XR chest 1V portable [id number] 10/14/2019 5:13 PM FINDINGS: Lungs: Stable mild interstitial marking prominence throughout the lungs. Interval minimal atelectasis in the left lateral lung base. Still no consolidation. Pleural space: Still no pneumothorax or apparent pleural fluid. Heart/Mediastinum: Borderline cardiomegaly still likely. Continued apparent stent over the left heart. Vasculature: Continued aortic elongation. Bones/joints: No visible acute bony disease. XR/XR chest 1V portable [id number] IMPRESSION: Interval minimal atelectasis in the left lung base without other change. Continued interstitial marking prominence in the lungs and probable borderline cardiomegaly.
[2019-10-18] MEDS: azithromycin 500 MG in sodium chloride 0.9% 250 ML 250 MG IV (22:12)
[2019-10-19] VITALS (9 sets, daily range): BP systolic 119–141; BP diastolic 70–86; PULSE 71–88; RESP 16–27; TEMP 36.6–36.9; O2SAT 92–97
[2019-10-19 05:46] LABS: Basophils % 0.3 %; Eosinophils # 0.4 10^3/uL (0.0-0.8); Eosinophils % 3.3 %; Hematocrit 37.6 % (42.0-52.0); Hemoglobin 11.4 g/dL (11.7-16.6); Lymphocytes # 1.6 10^3/uL (0.8-4.8); Lymphocytes % 14.4 %; Mean Corpuscular HGB Conc 30.3 g/dL (30.0-36.0); Mean Corpuscular Hemoglobin 24.8 pg (28.0-34.0); Mean Corpuscular Volume 81.9 fL (80-94); Mean Platelet Volume 10.4 fL (7.4-10.4); Monocytes # 0.9 10^3/uL (0.2-0.9); Monocytes % 8.1 %; Neutrophils % 72.9 %; Nucleated Red Blood Cells % 0 %; Platelet Count 270 10^3/cmm (130-400); Red Blood Count 4.59 10^6/uL (4.1-5.3); Red Cell Distribution Width 16.7 % (12.1-15.1); White Blood Count 11.4 10^3/uL (4.0-10.0)
[2019-10-19 06:16] LABS: Glucose Point of Care 94 mg/dL (70-110)
--- NOTE | 2019-10-19 06:38 | PC.NURSE ---
PT DENIES PAIN. VS WNL. PT DID WELL WITH 1:1 SITTER. PT THOUGHT THAT SITTER WAS HIS . PT PULLED AT IV AND CATHETER BUT WAS EASILY REDIRECTED. WILL CONTINUE TO MONITOR.
[2019-10-19 06:41] LABS: Anion Gap 13.9 (5-19); Blood Urea Nitrogen 25 mg/dL (8-23); Calcium 8.7 mg/dL (8.5-10.5); Carbon Dioxide 28 mmol/L (22-29); Chloride 101 mmol/L (98-107); Glucose 91 mg/dL (65-115); Osmolality Calculated 284 mOsm/kg (285-295); Potassium 3.9 mmol/L (3.5-5.1); Sodium 139 mmol/L (136-145)
--- NOTE | 2019-10-19 09:35 | P.PN_ITS ---
Subjective Subjective: Interval history: Had 1000 mL urine output overnight for total negative fluid balance of 12 L, hemodynamically stable, on room air, stable leukocytosis with white count of 11.4, stable hemoglobin at 11.4, normal creatinine. Repeat chest x-ray showing interstitial prominence. Doing well today, sitter at bedside, continues to tolerate oral intake without difficulty, requesting removal of [place] catheter. Inquired about being discharged home today but per discussion with will need to hold off until tomorrow as she is unable to take him home until then. Medications: Reviewed: Yes Medication Review Details: Active Medications Generic Name Dose Route Start Last Admin Trade Name Freq PRN Reason Stop Dose Admin Acetaminophen 650 mg 10/14/19 22:31 10/18/19 03:01 Tylenol PO 650 mg Q6H PRN Administration Mild/Mod Pain Or Temp >/= 101 Albuterol Sulfate 2.5 mg 10/18/19 09:47 10/18/19 10:21 Albuterol INHALATION 2.5 mg Q6H.RESPIRATORY P RN Administration SHORTNESS OF NICHO TH Apixaban 5 mg 10/15/19 09:00 10/18/19 17:58 Eliquis PO 5 mg BID CULELN Administration Dextrose 25 ml 10/15/19 04:54 D50w IVP ONCE PRN hypoglycemia prot ocol Protocol Dextrose 50 ml 10/15/19 04:54 D50w IVP PRN PRN hypoglycemia prot ocol Protocol Furosemide 40 mg 10/18/19 16:00 10/18/19 16:22 Lasix PO 40 mg BID@08,16 CULLEN Administration Glucagon 1 mg 10/15/19 04:54 Glucagen IM ONCE PRN Adult Acute Hypog lycemia Prot. Protocol Ceftriaxone Sodium 1,000 mg/ 50 mls @ 100 mls/ hr 10/14/19 22:00 10/18/19 21:32 Sodium Chloride IV 100 mls/hr Q12H CULLEN Administration Protocol Azithromycin 500 m g/ Sodium 250 mls @ 250 mls /hr 10/14/19 22:00 10/18/19 22:12 Chloride IV 250 mls/hr Q24H CULLEN Administration Protocol Dextrose 500 mls @ 100 mls /hr 10/15/19 04:54 D5w IV ONCE PRN Adult Acute Hypog lycemia Prot Protocol Insulin Aspart 0 unit 10/15/19 08:00 10/19/19 08:43 Novolog SUBCUT Not Given WM&BEDTIME CULLEN Protocol Ondansetron HCl 4 mg 10/17/19 16:29 10/18/19 06:05 Zofran IVP 4 mg Q4H PRN Administration vomiting, or N/V if npo Pantoprazole Sodiu m 40 mg 10/15/19 09:00 10/18/19 09:43 Protonix PO 40 mg DAILY CULLEN Administration Potassium Chloride 20 meq 10/15/19 09:00 10/18/19 09:43 Klor-Con 10 PO 20 meq DAILY CULLEN Administration Prednisone 40 mg 10/15/19 09:00 10/18/19 09:42 Prednisone PO 40 mg DAILY CULLEN Administration Risperidone 0.5 mg 10/15/19 09:00 10/18/19 17:58 Risperdal PO 0.5 mg BID CULLEN Administration Tamsulosin HCl 0.4 mg 10/15/19 09:00 10/18/19 09:42 Flomax PO 0.4 mg DAILY CULLEN Administration adhesive tape Allergy (Unknown, Verified 08/31/19 15:18) ALGY-Blister olanzapine Allergy (Unknown, Verified 08/05/19 14:37) Unknown Vitals/I&O/Wt Last Vital Signs Temp 97.8 F 10/19/19 07:09 Pulse 88 10/19/19 07:09 Resp 27 H 10/19/19 07:09 BP 123/79 10/19/19 07:09 Pulse Ox 92 10/19/19 07:09 10/18/19 10/19/19 10/19/19 22:59 06:59 14:59 Intake Total 720 / 1730 300 / 2030 240 / 240 Output Total 350 / 2350 1000 / 3350 Balance 370 / -620 -700 / -1320 240 / 240 Weight last 48 hrs Weight 102.512 kg Weight 102.875 kg Physical Exam Const: COMMON NORMALS: no acute distress and alert GENERAL APPEARANCE: cooperative and comfortable ORIENTATION/CONSCIOUSNESS: Yes awake and Yes confused OTHER: -thinks he is at home HENMT: COMMON NORMALS: normocephalic, atraumatic, hearing grossly normal bilaterally and moist oral mucous membranes HEAD & SCALP: normocephalic and atraumatic Eye: COMMON NORMALS: Equal, round and reactive pupils present, EOMs intact bilaterally and conjunctivae normal CONJUNCTIVA: Yes conjunctivae normal PUPIL: Yes Equal, round and reactive pupils present Neck/C-Spine: COMMON NORMALS: full ROM GENERAL: Yes normal visual inspection and Yes trachea midline Resp: COMMON NORMALS: normal respiratory effort, No retractions and No use of accessory muscles EFFORT & INSPECTION: Yes able to speak in complete sentences, Yes symmetric chest movement and No tachypneic AUSCULTATION: rhonchi and diminished lung sounds (bilateral bases) OTHER: -on RA Cardio: COMMON NORMALS: regular rate, S1 normal heart sound present, S2 normal heart sound present and No murmurs present (Cardio) RATE: regular rate RHYTHM: abnormal rhythm irregularly irregular HEART SOUNDS: S1 normal heart sound present and S2 normal heart sound present GI: COMMON NORMALS: Soft to palpation and non-tender INSPECTION: Yes abdominal distension and Yes central obesity PALPATION: Yes Soft to palpation, No Guarding due to palpation present (GI) and No Rigid due to pal pation : BLADDER/KIDNEY EXAM: Yes catheter in place Extremity: COMMON NORMALS: normal to inspection, full ROM and no clubbing, cyanosis or edema; negative for no pedal edema Neuro: COMMON NORMALS: moves all extremities and no focal motor deficits SENSORIUM/ORIENTATION: Yes alert and Yes other (confused) Psych: COMMON NORMALS: mental status grossly normal, Normal thought process present, cooperative, normal affect and speech normal SPEECH: Yes normal speech THOUGHT PROCESS: Normal thought process present Skin: COMMON NORMALS: no rashes or lesions noted, no jaundice, no petechiae and no mottling GENERAL SKIN EXAM: no rashes or lesions noted Urinary Catheter Management^: [place]: Cath Placed During This Visit: yes Urethral Indwelling: Yes Reason for Continuing Indwelling Catheter: Acute Urinary Retention or Obstruction Urinary Catheter Date of Insertion: 10/14/19 Urinary Catheter Time of Insertion: 17:00 Data : 10/19/19 05:34 10/19/19 05:34 A&P Assessment and plan (1) CHF (congestive heart failure): -acutely decompensated diastolic CHF as evidenced by BNP elevation, edema, evidence of fluid overload on imaging -Echo: EF=50-55%, no RWMA, last one in 2018 with EF=55% -on oral diuresis with lasix; so far has diuresed 12 L -daily weights, monitor Is & Os; has [place] catheter in place -supplemental oxygen as needed -VSS; continue to monitor Status: Acute Qualifiers: Heart failure chronicity: acute on chronic Heart failure type: diastolic Qualified Code(s): I50.33 - Acute on chronic diastolic (congestive) heart failure (2) Acute alteration in mental status: -likely secondary to acute illness, has underlying Lewy body dementia with behavioral disturbance -1:1 monitoring -fall precautions, aspiration precautions -re-orient as needed -no acute findings on CT head Status: Acute (3) Pneumonia: -noted evidence of LLL infiltrate -stable leukocytosis; continue to trend WBC -on Ceftriaxone, Azithromycin -blood cx: 02/15 bottles positive for coagulase-negative staph, likely contaminant, repeat set prelim negative -pending sample for sputum cx -rapid COVID-19 test negative -repeat CXR showing interstitial prominence Status: Acute Qualifiers: Laterality: left Lung location: lower lobe of lung Pneumonia type: due to unspecified organism Qualified Code(s): J18.9 - Pneumonia, unspecified organism (4) Elevated troponin: -elevated troponins with flat trend, no significant delta -likely type II due to demand ischemia Status: Acute (5) COPD exacerbation: -supplemental oxygen as needed -Duonebs, oral steroids -not oxygen dependent at baseline; home oxygen evaluation if still requiring oxy gen prior to d/c Status: Acute Additional A&P Information -hx of esophageal carcinoma s/p chemoradiation. 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 Episodes of emesis seem to have occurred after receiving nebulizer treatments. Per medication list has been on albuterol nebulization at home will discontinue duo nebs and resume albuterol nebs as needed and monitor response -DVT ppx not needed as on Eliquis -GI ppx with PPI -Dispo: home, lives with ; services arranged through [place]. Anticip ate discharge home tomorrow -Code status: DNR/DNI Attestations Medical Necessity Statement*: Patient requires hospitalization for continued treatment of pneumonia, diuresis. Time Spent in Patient Care: 16 - 35 minutes (>than 50% of time spent in counselling and/or direct pt care on unit) . Coding Level of Care Code Acute Centrifuge Separator Operator for g Fwd Exam Comprehensive Diagnoses CHF (congestive heart failure) I50.33 Heart failure chronicity: acute on chronic Heart failure type: diastolic Acute alteration in mental status R41.82 Pneumonia J18.9 Laterality: left Lung location: lower lobe of lung Pneumonia type: due to unspecified organism Elevated troponin R79.89 COPD exacerbation J44.1
[2019-10-19] MEDS: tamsulosin 0.4 mg Capsule PO (10:38)
[2019-10-19] MEDS: risperiDONE 1 mg Tablet 0.5 MG PO ×2 (10:38→17:48)
[2019-10-19] MEDS: pantoprazole DR 40 mg Tablet PO (10:38)
--- NOTE | 2019-10-19 10:39 | PC.SOCIAL ---
IMM Updated Updated pt on Pg 2 IMM. No questions voiced. Provided pt a copy. Signed, dated, & timed copy in chart.
[2019-10-19] MEDS: predniSONE 20 mg Tablet 40 MG PO (10:40)
[2019-10-19] MEDS: potassium chloride ER 10 mEq Tablet 20 MEQ PO (10:41)
[2019-10-19] MEDS: apixaban 5 mg Tablet PO ×2 (10:42→17:48)
[2019-10-19] MEDS: FUROsemide 40 mg Tablet PO ×2 (10:45→16:38)
[2019-10-19] MEDS: cefTRIAXone 1,000 MG in sodium chloride 0.9% (plus) 50 ML 100 MG IV ×2 (10:45→21:08)
[2019-10-19 12:18] LABS: Glucose Point of Care 156 mg/dL (70-110)
--- NOTE | 2019-10-19 12:27 | PC.CHAP ---
Pastoral Care Encounter/Spiritual Assessment Type of Contact [] Declined quality cloth tester visit [] Patient/Family/Request visit [] Outpatient visit [xx] Follow-up visit [] Physician referral [] Code/Alert [] Routine visit [] Staff referral [] Actively dying [] Patient sleeping [] Family support [] [] Out of room [] Palliative care [] [xx] Receiving care in room [] Pre-surgical visit [] Trauma [] Long length of stay [] ICU visit [] Other: Relational/Emotional Strength [] Patient feels connected with others/family/visitors/staff [] Distress [] Loneliness/isolation [] Abandonment Spirituality of Patient [] Person of Tanja [] Attends Gnosticist of their Tanja [] Believes in Prayer [] Reads Bible or Yazidi materials [] There are Spiritual issues to be addressed Director Of Culture Interventions [] Prayer [] Active listening [] Non-anxious presence [] Spiritual/emotional support [] Crisis/trauma care [] Spiritual counseling [] Bereavement support [] Provided bereavement packet [] Provided Bible/devotional materials [] Provided toy/stuffed animal, coloring book to patient or family member [] Provided Communion [] Anointing/Comptche [] Salvation [] Completed spiritual assessment [] Other: Impact on Illness or Injury [] Angry [] Fearful [] Anxious [] Often cries [] Exhaustion [] Unable to work [] Unable to attend bahai [] Unable to walk/stand [] Unable to read [] Unable to drive [] Unable to eat/drink [] Unable to sleep [] Unable to be with family [] Patient intubated [] Other: Summary Time spent with patient
[2019-10-19 15:53] LABS: Glucose Point of Care 132 mg/dL (70-110)
--- NOTE | 2019-10-19 19:19 | PC.NURSE ---
ASSUMED CARE AT THIS TIME. PT RESTING IN BED. DENIES PAIN. PT IS ORIENTATED TO SELF. HAS A 1:1 SITTER IN ROOM. WILL CONTINUE TO MONITOR.
--- NOTE | 2019-10-19 19:19 | PC.NURSE ---
pt pulled iv out from right arm...iv restarted in left upper arm.pt tolerated procedure well.pt has been voiding adequately since childers catheter was dc'd at 1115 today.occas incontinent of urine...and occas able to make it to bathroom with assist of 1.
[2019-10-19 21:17] LABS: Glucose Point of Care 124 mg/dL (70-110)
[2019-10-19] MEDS: azithromycin 500 MG in sodium chloride 0.9% 250 ML 250 MG IV (21:49)
[2019-10-20] VITALS (8 sets, daily range): BP systolic 104–150; BP diastolic 54–79; PULSE 61–82; RESP 16–25; TEMP 36.4–36.8; O2SAT 96–98
--- NOTE | 2019-10-20 06:20 | PC.NURSE ---
PT DENIES PAIN. VS WNL. PT DID WELL WITH 1:1 SITTER. PT HAD INCONTINENT EPISODES X2. WILL CONTINUE TO MONITOR.
[2019-10-20 06:51] LABS: Glucose Point of Care 114 mg/dL (70-110)
[2019-10-20] MEDS: FUROsemide 40 mg Tablet PO ×2 (08:41→15:05)
[2019-10-20] MEDS: potassium chloride ER 10 mEq Tablet 20 MEQ PO (08:41)
[2019-10-20] MEDS: predniSONE 20 mg Tablet 40 MG PO (08:41)
[2019-10-20] MEDS: tamsulosin 0.4 mg Capsule PO (08:42)
[2019-10-20] MEDS: pantoprazole DR 40 mg Tablet PO (08:42)
[2019-10-20] MEDS: apixaban 5 mg Tablet PO ×2 (08:42→17:49)
[2019-10-20] MEDS: risperiDONE 1 mg Tablet 0.5 MG PO ×2 (08:42→17:49)
--- NOTE | 2019-10-20 10:05 | PC.NURSE ---
pt assisted to the side of the bed to bedside commode. pt had a bowel movement and was assisted back to the side of the bed where he wanted to sit. pt has 1:1 sitter. light placed within reach. pt denies needing anything else at this time. will continue to monitor.
[2019-10-20] MEDS: cefTRIAXone 1,000 MG in sodium chloride 0.9% (plus) 50 ML 100 MG IV ×2 (11:34→21:06)
[2019-10-20 11:42] LABS: Glucose Point of Care 117 mg/dL (70-110)
--- NOTE | 2019-10-20 12:00 | PC.NURSE ---
called asking about pt. expressed concern about him coming home because she feels like someone needs to be with him all the time. she believes that his alzhemiers is progressing. dr notified verbally of this conversation. would like to speak to if she comes to visit him. will continue to monitor pt and notify dr if pt calls or visits.
--- NOTE | 2019-10-20 14:00 | PC.NURSE ---
pt assisted with standing up to use urinal. clothing needed changed, new gown and pants obtained. pt oriented to self. after done using the urinal assisted back to bed. 1:1 sitter still at bedside. will continue to monitor.
[2019-10-20 16:40] LABS: Glucose Point of Care 128 mg/dL (70-110)
--- NOTE | 2019-10-20 18:02 | PM.PN ---
Subjective Subjective: Interval history: hemodynamically stable, on room air, stable leukocytosis with white count of 11.4, stable hemoglobin at 11.4, normal creatinine. Repeat chest x-ray showing interstitial prominence. Doing well today, sitter at bedside, continues to tolerate oral intake without difficulty. Inquired about being discharged home today but per discussion with will need to hold off until tomorrow as she is unable to take him home until then. Vitals/I&O/Wt Last Vital Signs Temp 98.1 F 10/20/19 16:00 Pulse 82 10/20/19 16:00 Resp 25 H 10/20/19 16:00 BP 150/79 10/20/19 16:00 Pulse Ox 98 10/20/19 16:00 10/20/19 10/20/19 10/20/19 06:59 14:59 22:59 Intake Total 770 / 770 240 / 1010 Output Total 775 / 775 300 / 1075 Balance -5 / -5 -60 / -65 Weight last 48 hrs Weight 101.333 kg Weight 102.512 kg Physical Exam Const: COMMON NORMALS: patient oriented x3 HENMT: COMMON NORMALS: normocephalic, atraumatic, hearing grossly normal bilaterally and external ears normal HEAD & SCALP: normocephalic and atraumatic EXTERNAL EAR: Yes external ears normal Eye: COMMON NORMALS: no scleral icterus GENERAL EYE: appearance normal, both eyes and all related structures Chest: COMMONS NORMALS: normal inspection of the chest and normal palpation of entire chest wall CHEST: Yes Symmetrical chest wall rise Resp: COMMON NORMALS: normal respiratory effort, No retractions, No use of accessory muscles and clear to auscultation bilaterally EFFORT & INSPECTION: Yes symmetric chest movement AUSCULTATION: clear to auscultation bilaterally Cardio: COMMON NORMALS: regular rate, regular rhythm, S1 normal heart sound present, S2 normal heart sound present, No gallops present (Cardio), No murmurs present (Cardio), No rub (Cardio) and Peripheral pulses 2+ throughout RATE: regular rate RHYTHM: regular rhythm HEART SOUNDS: S1 normal heart sound present and S2 normal heart sound present PERIPHERAL PULSES: Peripheral pulses 2+ throughout GI: COMMON NORMALS: Normal to inspection, nondistended, normoactive bowel sounds present, Soft to palpation, non-tender, No hepatosplenomegaly present and no masses AUSCULTATION: Yes normoactive bowel sounds PALPATION: Yes Soft to palpation and Yes No hepatosplenomegaly present RECTAL EXAM: Yes deferred : COMMON NORMALS: Yes no CVA tenderness BLADDER/KIDNEY EXAM: Yes no CVA tenderness Back/Pelvis: COMMON NORMALS: no CVA tenderness Extremity: COMMON NORMALS: no clubbing, cyanosis or edema and no pedal edema Neuro: COMMON NORMALS: patient oriented x3 Urinary Catheter Management^: [place]: Cath Placed During This Visit: yes Urethral Indwelling: Yes Reason for Continuing Indwelling Catheter: Acute Urinary Retention or Obstruction Urinary Catheter Date of Insertion: 10/14/19 Urinary Catheter Time of Insertion: 17:00 Data : 10/19/19 05:34 10/19/19 05:34 Micro: Microbiology 10/14/19 23:00 Blood Culture - Final Blood Coagulase negativ staphylococc 10/14/19 22:55 Blood Culture - Final Blood NO GROWTH AFTER 5 DAYS A&P Assessment and plan (1) COPD exacerbation: supplemental oxygen as needed -Duonebs, oral steroids -not oxygen dependent at baseline; home oxygen evaluation if still requiring oxygen prior to d/c Status: Acute (2) CHF (congestive heart failure): -acutely decompensated diastolic CHF as evidenced by BNP elevation, edema, evidence of fluid overload on imaging -Echo: EF=50-55%, no RWMA, last one in 2018 with EF=55% -on oral diuresis with lasix; so far has diuresed 12 L -daily weights, monitor Is & Os; has [place] catheter in place -supplemental oxygen as needed -VSS; continue to monitor Status: Acute Qualifiers: Heart failure type: diastolic Heart failure chronicity: acute on chronic Qualified Code(s): I50.33 - Acute on chronic diastolic (congestive) heart failure (3) Pneumonia: -noted evidence of LLL infiltrate -stable leukocytosis; continue to trend WBC -on Ceftriaxone, Azithromycin -blood cx: 02/15 bottles positive for coagulase-negative staph, likely contaminant, repeat set prelim negative -pending sample for sputum cx -rapid COVID-19 test negative -repeat CXR showing interstitial prominence Status: Acute Qualifiers: Laterality: left Lung location: lower lobe of lung Pneumonia type: due to unspecified organism Qualified Code(s): J18.9 - Pneumonia, unspecified organism (4) Elevated troponin: -elevated troponins with flat trend, no significant delta -likely type II due to demand ischemia Status: Acute (5) Acute alteration in mental status: likely secondary to acute illness, has underlying Lewy body dementia with behavioral disturbance -1:1 monitoring -fall precautions, aspiration precautions -re-orient as needed -no acute findings on CT head Status: Acute Additional A&P Information -hx of esophageal carcinoma s/p chemoradiation. 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 Episodes of emesis seem to have occurred after receiving nebulizer treatments. Per medication list has been on albuterol nebulization at home will discontinue duo nebs and resume albuterol nebs as needed and monitor response -DVT ppx not needed as on Eliquis -GI ppx with PPI Attestations Medical Necessity Statement*: COPD Exacerbation as well H.F management. Coding Level of Care Code Acute Correction Officer Supervisor for Irma Delgado Diagnoses COPD exacerbation J44.1 CHF (congestive heart failure) I50.33 Heart failure type: diastolic Heart failure chronicity: acute on chronic Pneumonia J18.9 Laterality: left Lung location: lower lobe of lung Pneumonia type: due to unspecified organism Elevated troponin R79.89 Acute alteration in mental status R41.82
[2019-10-20 20:24] LABS: Glucose Point of Care 98 mg/dL (70-110)
[2019-10-20] MEDS: azithromycin 500 MG in sodium chloride 0.9% 250 ML 250 MG IV (21:37)
[2019-10-21] VITALS: BP 118/54; PULSE 71; RESP 19; O2SAT 92
[2019-10-21 03:23] VITALS: BP 141/82; PULSE 73; RESP 22; TEMP 36.8; O2SAT 96
--- NOTE | 2019-10-21 03:36 | PC.NURSE ---
Patient resting in bed with eyes open at this time, staff assisted patient with use of bathroom (Urinal), linen change, new gown, absorbent brief, and fresh blankets. Patient is cooperative with staff and obeys commands. Patient is alert and orientated to self and is helps staff with ADL cares. 1:1 sitter at bedside. Continue care.
[2019-10-21 06:23] LABS: Glucose Point of Care 87 mg/dL (70-110)
--- NOTE | 2019-10-21 07:14 | PC.NURSE ---
pt resting in bed at this time with 1:1 sitter at bedside. assessment and vitals were performed. pt denies needing anything at this time. will continue to monitor.
[2019-10-21 07:16] VITALS: BP 126/68; PULSE 63; RESP 20; TEMP 36.9; O2SAT 97
--- NOTE | 2019-10-21 08:18 | PC.SOCIAL ---
IMM Update Pg. 2 of IMM updated and explained to patient and verbalized understanding. Copy provided.
[2019-10-21] MEDS: FUROsemide 40 mg Tablet PO (08:54)
[2019-10-21] MEDS: potassium chloride ER 10 mEq Tablet 20 MEQ PO (08:54)
[2019-10-21] MEDS: risperiDONE 1 mg Tablet 0.5 MG PO (08:55)
[2019-10-21] MEDS: predniSONE 20 mg Tablet 40 MG PO (08:55)
[2019-10-21] MEDS: pantoprazole DR 40 mg Tablet PO (08:55)
[2019-10-21] MEDS: apixaban 5 mg Tablet PO (08:55)
[2019-10-21] MEDS: tamsulosin 0.4 mg Capsule PO (08:55)
[2019-10-21] MEDS: cefTRIAXone 1,000 MG in sodium chloride 0.9% (plus) 50 ML 100 MG IV (09:01)
[2019-10-21 10:36] VITALS: BP 126/68; PULSE 63; RESP 20; TEMP 36.9; O2SAT 97
--- NOTE | 2019-10-21 10:44 | PC.NURSE ---
questions on discharge planning & implementation that were answered no are because pt is confused at times. /intensive care nurse was given education and involved in care decisions.
--- NOTE | 2019-10-21 11:02 | PM.DCS ---
Discharge Providers Date of Admission: 10/14/19 22:13 Date of Discharge: October 21, 2019 Attending Provider at Admission: Ebenezer Naqvi MD Attending Provider at Discharge: Raúl Barrera MD Primary Care Provider: DENZEL Cazares Diagnoses at Discharge Discharge Diagnosis (1) COPD exacerbation: (2) CHF (congestive heart failure): Qualifiers: Heart failure chronicity: acute on chronic Heart failure type: diastolic Qualified Code(s): I50.33 - Acute on chronic diastolic (congestive) heart failure (3) Pneumonia: Qualifiers: Laterality: left Lung location: lower lobe of lung Pneumonia type: due to unspecified organism Qualified Code(s): J18.9 - Pneumonia, unspecified organism (4) Elevated troponin: Status: Resolved (5) Acute alteration in mental status: Reason for Visit Reason for Visit: AMS, WEAKNESS Hospital Course Hospital Course: 78 y/o M patient with pmh of dementia,HFpEF,HTN,DM,BPH,presented with acute CHF as well as COPD exacerbation, as well as PNA .During the hospital stay he was managed for HFpEF exacerbation he diuresed well, initially on I.V Lasix then transitioned to oral Lasix.He was also managed for COPD exacerbation as well for PNA (antibiotics).He completed his abx course for PNA. Has consistently required a sitter due to confusion which is his baseline. Patient was discharged in stable condition. Physical Exam Const: COMMON NORMALS: patient oriented x3 HENMT: COMMON NORMALS: normocephalic, atraumatic, hearing grossly normal bilaterally and external ears normal HEAD & SCALP: normocephalic and atraumatic EXTERNAL EAR: Yes external ears normal Eye: COMMON NORMALS: no scleral icterus GENERAL EYE: appearance normal, both eyes and all related structures Chest: COMMONS NORMALS: normal inspection of the chest and normal palpation of entire chest wall CHEST: Yes Symmetrical chest wall rise Resp: COMMON NORMALS: normal respiratory effort, No retractions, No use of accessory muscles and clear to auscultation bilaterally EFFORT & INSPECTION: Yes symmetric chest movement AUSCULTATION: clear to auscultation bilaterally Cardio: COMMON NORMALS: regular rate, regular rhythm, S1 normal heart sound present, S2 normal heart sound present, No gallops present (Cardio), No murmurs present (Cardio), No rub (Cardio) and Peripheral pulses 2+ throughout RATE: regular rate RHYTHM: regular rhythm HEART SOUNDS: S1 normal heart sound present and S2 normal heart sound present PERIPHERAL PULSES: Peripheral pulses 2+ throughout GI: COMMON NORMALS: Normal to inspection, nondistended, normoactive bowel sounds present, Soft to palpation, non-tender, No hepatosplenomegaly present and no masses AUSCULTATION: Yes normoactive bowel sounds PALPATION: Yes Soft to palpation and Yes No hepatosplenomegaly present RECTAL EXAM: Yes deferred : COMMON NORMALS: Yes no CVA tenderness BLADDER/KIDNEY EXAM: Yes no CVA tenderness Back/Pelvis: COMMON NORMALS: no CVA tenderness Extremity: COMMON NORMALS: no clubbing, cyanosis or edema and no pedal edema Neuro: COMMON NORMALS: patient oriented x3 Urinary Catheter Management^: [place]: Cath Placed During This Visit: yes Urethral Indwelling: Yes Reason for Continuing Indwelling Catheter: Acute Urinary Retention or Obstruction Urinary Catheter Date of Insertion: 10/14/19 Urinary Catheter Time of Insertion: 17:00 Discharge Data Data Completed and Pending: Completed Studies During Hospitalization Category Date Time Status CT abdomen pelvis w con* [id number] Stat Cat Scan 10/14/19 19:[address] head wo con* 7 0450 Stat Cat Scan 10/14/19 18:35 Completed XR KUB portable 7 [id number] Routine Exams 10/17/19 16:28 Completed XR chest 1V corinne ble [id number] Routine Exams 10/18/19 20:43 Completed XR chest 1V corinne ble [id number] Stat Exams 10/14/19 16:23 Completed CV echo complete* [id number] Routine Ultrasound 10/15/19 00:15 Completed Pending at discharge Category Date Time Status Blood Culture Sta t Lab 10/16/19 12:10 Results Sputum Culture an d Gram Stain Demetrice alves Lab 10/14/19 22:31 Uncollected Labs from last 24 hours 10/21/19 10/20/19 10/20/19 05:59 20:18 16:21 POC Glucose 87 98 128 10/20/19 11:37 POC Glucose 117 Vitals: Last Vital Signs Temp 98.5 F 10/21/19 10:36 Pulse 63 10/21/19 10:36 Resp 20 H 10/21/19 10:36 BP 126/68 10/21/19 10:36 Pulse Ox 97 10/21/19 10:36 Discharge Plan Discharge Patient Disposition: Home Health Service Condition: Stable Prescriptions: New Medrol (Wilfredo) 4 mg tablets,dose pack See Rx Instructions .ROUTE .COMPLEX Qty: 21 RF: 0 levofloxacin 750 mg tablet 750 mg PO DAILY 5 Days RF: 0 Tessalon Perles 100 mg capsule 100 mg PO BID Qty: 14 RF: 0 Continued tamsulosin [Flomax] 0.4 mg capsule 0.4 mg PO DAILY RF: 0 albuterol sulfate 2.5 mg/0.5 mL solution for nebulization 10 mg INHALATION Q4H PRN (Reason: Shortness of breathe) RF: 0 risperidone 0.5 mg tablet 0.5 mg PO BID RF: 0 melatonin 5 mg capsule 30 mg PO BEDTIME RF: 0 ascorbate calcium (vitamin C) 500 mg tablet 500 mg PO DAILY RF: 0 furosemide 40 mg tablet 40 mg PO BID Qty: 180 RF: 1 potassium chloride 20 mEq tablet extended release 20 meq PO DAILY 90 Days Qty: 90 RF: 1 Eliquis 5 mg tablet 5 mg PO BID 90 Days Qty: 180 RF: 1 spironolactone 25 mg Tablet 25 mg PO DAILY RF: 0 Carafate 100 mg/mL suspension 1 g PO Q6H RF: 0 Nexium 40 mg capsule,delayed release(DR/EC) 40 mg PO DAILY RF: 0 Discharge Orders: Discharge Order (Routine); Ordered 10/21/19 Ordered By: Raúl Barrera Referrals: [facility] [Outside] Ashley Medrano FNP [Primary Care Provider] - (You have an follow-up appointment with Ashley Medrano on Sunday, at 9:15a.m. If you have any questions ot need to rescheudle. Please call ) Discharge Diet: Cardiac Discharge Activity: Resume usual activity Patient Instructions: COPD, Benzonatate (By mouth), Methylprednisolone (By mouth), Levofloxacin (By mouth), CHF Stoplight, COPD Stoplight Discharge Date/Time: 10/21/19 12:47 Discharge Attestations Time Spent in Discharge Care*: greater than 30 min Specific Discharge Activities: Specific discharge activities: educating patient, educating and/or supporting family/caregiver, discussing with correctional counselor/case manager/social workers/dc planners, documenting/other paperwork and evaluating patient/reviewing data Status at Discharge: Behavioral status at discharge: cooperative, Functional status at discharge: uses cane/walker Overall status at discharge: patient is back to baseline Quality Metrics Clinical Quality Measures During this hospital stay, did patient experience: None Coding Level of Care Code Acute Truck Manager for Samig Fwd Diagnoses COPD exacerbation J44.1 CHF (congestive heart failure) I50.33 Heart failure chronicity: acute on chronic Heart failure type: diastolic Pneumonia J18.9 Laterality: left Lung location: lower lobe of lung Pneumonia type: due to unspecified organism Elevated troponin R79.89 Acute alteration in mental status R41.82
[2019-10-21 11:06] VITALS: BP 139/93; PULSE 77; RESP 24; TEMP 36.6; O2SAT 93
[2019-10-21 11:18] LABS: Glucose Point of Care 116 mg/dL (70-110)
--- NOTE | 2019-10-21 11:43 | PC.NURSE ---
pt sitting on side of the bed eating lunch. 1:1 sitter at bedside. will continue to monitor. call light within reach.
== END 2019-10-21 12:47 | disposition home health service (06) | DRG 291 ==
LOC: ER 22:00 → CSU 22:23
PROVIDERS: Emergency Medicine; Family Medicine; Admitting Provider Internal Medicine; PCP Nurse Practitioner Family; Visit Provider Internal Medicine
DX: I11.0 Hypertensive heart disease with heart failure (principal); J18.9 Pneumonia, unspecified organism; J44.1 Chronic obstructive pulmonary disease with (acute) exacerbation; J44.0 Chronic obstructive pulmonary disease with (acute) lower respiratory infection; I50.33 Acute on chronic diastolic (congestive) heart failure; G31.83 Neurocognitive disorder with Lewy bodies; F02.80 Dementia in other diseases classified elsewhere, unspecified severity, without behavioral disturbance, psychotic disturbance, mood disturbance, and anxiety; Z79.01 Long term (current) use of anticoagulants; I25.10 Atherosclerotic heart disease of native coronary artery without angina pectoris; Z95.5 Presence of coronary angioplasty implant and graft; I48.91 Unspecified atrial fibrillation; Z95.828 Presence of other vascular implants and grafts; K22.70 Barrett's esophagus without dysplasia; N40.0 Benign prostatic hyperplasia without lower urinary tract symptoms; Z85.01 Personal history of malignant neoplasm of esophagus; Z86.73 Personal history of transient ischemic attack (TIA), and cerebral infarction without residual deficits; E11.9 Type 2 diabetes mellitus without complications; E78.5 Hyperlipidemia, unspecified; G47.33 Obstructive sleep apnea (adult) (pediatric); Z86.711 Personal history of pulmonary embolism; Z98.2 Presence of cerebrospinal fluid drainage device; Z87.891 Personal history of nicotine dependence; F10.21 Alcohol dependence, in remission; Z79.51 Long term (current) use of inhaled steroids; Z66 Do not resuscitate; E66.9 Obesity, unspecified; Z68.33 Body mass index [BMI] 33.0-33.9, adult; Z92.3 Personal history of irradiation; Z92.21 Personal history of antineoplastic chemotherapy
CPT/HCPCS: 12345; 36415; 36416; 36600; 70450; 71045; 74018; 74177; 80048; 80051; 80053; 81003; 82140; 82810; 82962; 83036; 83605; 83735; 83880; 83986; 84443; 84484; 85025; 87040; 87205; 87426; 93005; 93306; 94640; 94660; 96372; 96375; 97110; 97116; 97161; 97166; 97530; 97535; 99284; J0456; J0696; J1630; J1815; J1940; J2405; J2930; J7050; J7512; J7611; Q9967

== ENCOUNTER 2019-10-24 16:13 | Emergency (ER) | payer MEDICARE, MEDICAID, SELFPAY ==
[2019-10-24 16:16] VITALS: BP 133/79; PULSE 79; RESP 17; TEMP 37.1; O2SAT 99; BMI 31.2
--- NOTE | 2019-10-24 16:41 | ECG_ITS ---
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 Measurements Intervals [place] Rate: 65 P: NC: -1 QRS: -16 QRSD: 98 T: 98 QT: 359 QTc: 374 Interpretive Statements ATRIAL FIBRILLATION LOW QRS VOLTAGE IN PRECORDIAL LEADS [QRS DEFLECTION < 1.0 mV IN CHEST LEADS] POSSIBLE RIGHT VENTRICULAR CONDUCTION DELAY [RSR (QR) IN V1/V2] NONSPECIFIC ST & T-WAVE ABNORMALITY Compared to ECG 10/14/2019 18:39:25 Ventricular premature complex(es) no longer present Aberrant conduction of supraventricular beat(s) no longer present T-wave abnormality still present Electronically Signed On 10-25-2019 16:20:23 CDT by Alexandria Lowery M.D. [email or web address]
--- NOTE | 2019-10-24 16:41 | XRR_ITS ---
PROCEDURE INFORMATION: Exam: XR Chest, 1 View Exam date and time: 10/24/2019 5:22 PM Age: 78 years old Clinical indication: Dyspnea; Additional info: Chest pain TECHNIQUE: Imaging protocol: XR of the chest Views: 1 view. COMPARISON: CR (CHEST, ) 10/18/2019 10:39 PM, 07/26/2019 FINDINGS: Tubes, catheters and devices: Stable left HOME HEALTH OCCUPATIONAL THERAPIST shunt catheter. Lungs: Stable mild chronic interstitial prominence in both lungs. No focal consolidation. Pleural space: Unremarkable. No pleural effusion. No pneumothorax. Heart/Mediastinum: Unremarkable. No cardiomegaly. Bones/joints: Unremarkable. XR/XR chest 1V portable [id number] IMPRESSION: No acute findings.
--- NOTE | 2019-10-24 16:43 | ED_ITS ---
Documented by User: Cristobal Krishnamurthy DO 10/28/19 06:30 HPI - Chest Pain General: Chief Complaint: Chest Pain Stated Complaint: CHEST AND BACK PAIN Time Seen by Provider: 10/24/19 16:21 History of Present Illness: HPI narrative: 78-year-old male presents emergency room with complaint of chest pain began today while he was sitting at rest he took an aspirin and another pill that his gave him of those not sure what it was states he really did not get much relief from that. He also got shortness of breath with it. Patient is an exceptionally poor historian makes little or no attempt to answer most of my questions regarding the current history of present illness or his past medical history just refers to our old records and refuses to discuss essentially. He is adamant that he will not be placed in a half-way. He is able to tell me that he lives at home and with his who is his main caregiver he is aware of time in place as well. MD complaint: chest pain Pertinent past history: coronary artery disease, prior SC and CABG Onset (ago): hour(s) Timing of current episode: episodic Prior episodes: Yes Onset: during rest Pain location: left chest Pain radiation: none Severity: moderate Quality: tightness Relieving factors: nothing Exacerbating factors: nothing Associated symptoms: Reports dyspnea; Deny abdominal pain, diaphoresis, fever(s), leg edema, nausea, palpitations, sense of impending doom, syncope or vomiting Treatment prior to arrival: aspirin Review of Systems Const: Denies: fever(s) or diaphoresis ENMT: Denies: throat pain, ear or mastoid pain, nasal discharge or nasal congestion Card: Denies: palpitations or syncope Resp: Reports: dyspnea GI: Denies: abdominal pain, nausea or vomiting : Denies: flank pain, dysuria, urinary frequency or urinary urgency Skin/Breast: Denies: rash or pruritus PFS ED PFSH: Medical History Acute alteration in mental status Anemia Anticoagulation adequate with anticoagulant therapy ASHD (arteriosclerotic heart disease) Atrial fibrillation was taken off anticoagulation due to GI bleed, has IVC filter Piper's esophagus BPH (benign prostatic hyperplasia) Carcinoma of esophagus radiation esophagitis CHF (congestive heart failure) CHF (congestive heart failure), NYHA class I COPD (chronic obstructive pulmonary disease) COPD exacerbation CVA (cerebral vascular accident) Diabetes Diarrhea Dyslipidemia (high LDL; low HDL) Essential hypertension Gait disturbance Lewy body dementia with behavioral disturbance NATALI (obstructive sleep apnea) Pneumonia Post laminectomy syndrome Pulmonary emboli Surgical History [place] filter in place History of esophagogastroduodenoscopy (EGD) (07/24/19) resolution of Grade D esophagitis, no evidence of carcinoma Previous back surgery S/P angioplasty with stent S/P appendectomy S/P hernia repair S/P tonsillectomy WOOL CLEANER (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 Aicha Roche WOOL CLE[employer]ER shunt revision Family History Father CAD (coronary artery disease) Mother CAD (coronary artery disease) Hypertension Sister CAD (coronary artery disease) Diabetes Family/Other Stroke Denies family history of Anesthesia complication Bleeding disorder Social History Smoking and tobacco status: former smoker Quit status (tobacco): has quit using tobacco Alcohol intake: former Physical Exam Const: COMMON NORMALS: no acute distress GENERAL APPEARANCE: cooperative and comfortable ORIENTATION/CONSCIOUSNESS: Yes awake, Yes oriented to person, Yes oriented to place and Yes oriented to time HENMT: COMMON NORMALS: normocephalic, atraumatic and hearing grossly normal bilaterally HEAD & SCALP: normocephalic and atraumatic Eye: COMMON NORMALS: Equal, round and reactive pupils present, EOMs intact bilaterally, conjunctivae normal and no scleral icterus CONJUNCTIVA: Yes conjunctivae normal PUPIL: Yes Equal, round and reactive pupils present Neck/C-Spine: COMMON NORMALS: full ROM, no lymphadenopathy, supple and no JVD Lymph: LYMPHATIC: no lymphadenopathy noted and no lymphedema noted Resp: COMMON NORMALS: normal respiratory effort, No retractions, No use of accessory muscles and clear to auscultation bilaterally AUSCULTATION: clear to auscultation bilaterally Cardio: COMMON NORMALS: no JVD, regular rate, regular rhythm and No murmurs present (Cardio) RATE: regular rate RHYTHM: regular rhythm GI: COMMON NORMALS: Soft to palpation and No hepatosplenomegaly present AUSCULTATION: Yes normoactive bowel sounds PALPATION: Yes Soft to palpation, No Tenderness to palpation present (GI), No Guarding due to palpation present (GI) and Yes No hepatosplenomegaly present Extremity: COMMON NORMALS: normal to inspection, capillary refill normal, no clubbing, cyanosis or edema, no calf tenderness and no pedal edema Neuro: SENSORIUM/ORIENTATION: Yes oriented to person, Yes oriented to place and Yes oriented to time Skin: COMMON NORMALS: no rashes or lesions noted GENERAL SKIN EXAM: no rashes or lesions noted Course Vital Signs: Vital signs: Vital Signs Temperature 98.7 F 10/24/19 16:16 Pulse Rate 79 10/24/19 16:16 Respiratory Rate 17 10/24/19 16:16 Blood Pressure 133/79 10/24/19 16:16 Pulse Oximetry 99 10/24/19 16:16 MDM - Chest Pain MDM Narrative: Medical decision making narrative: Care turned over to Dr. Alba at change of shift initial troponin completed awaiting second troponin for delta. Lab Data: Labs: Lab Results 10/24/19 10/24/19 10/24/19 Range/Units 16:28 16:28 16:28 WBC 13.2 H (4.0-10.0) 10^3/ uL RBC 4.69 (4.1-5.3) 10^6/u L Hgb 11.7 (11.7-16.6) g/dL Hct 38.7 L (42.0-52.0) % MCV 82.5 (80-94) fL MCH 24.9 L (28.0-34.0) pg MCHC 30.2 (30.0-36.0) g/dL RDW 16.9 H (12.1-15.1) % Plt Count 320 (130-400) 10^3/c mm MPV 11.0 H (7.4-10.4) fL Neut % (Auto) 80.9 % Lymph % (Auto) 11.0 % Mel[place] % (Auto) 6.8 % Eos % (Auto) 0.3 % Baso % (Auto) 0.2 % Neut # (Auto) 10.68 H (1.8-7.7) 10^3/u L Lymph # (Auto) 1.5 (0.8-4.8) 10^3/u L Mellette # (Auto) 0.9 (0.2-0.9) 10^3/u L Eos # (Auto) 0.0 (0.0-0.8) 10^3/u L Baso # (Auto) 0.0 (0.0-0.1) 10^3/u L Nucleated RBC % (a uto) 0 % Nucleated RBCs # 0.0 /100WBC Sodium 138 (136-145) mmol/L Potassium 4.1 (3.5-5.1) mmol/L Chloride 101 (98-107) mmol/L Carbon Dioxide 25 (22-29) mmol/L Anion Gap 16.1 (5-19) BUN 20 (8-23) mg/dL Creatinine 1.2 (0.7-1.2) mg/dL GFR Calculation Not Reportable Glucose 113 (65-115) mg/dL Calculated Osmolal ity 283 L (285-295) mOsm/k g Calcium 9.0 (8.5-10.5) mg/dL Total Bilirubin 0.3 (0.15-1.2) mg/dL AST 12 (0-40) U/L ALT 17 (0-41) U/L Alkaline Phosphata se 72 (40-130) IU/L Troponin T Baselin e 30 H (0-15) ng/L Total Protein 6.6 (6.6-8.7) g/dL Albumin 4.1 (3.5-5.2) g/dL Globulin 2.5 (1.3-4.6) g/dL Discharge Plan Discharge Patient Disposition: Left Against Medical Advice Clinical Impression: Chest pain Qualifiers: Chest pain type: unspecified Qualified Code(s): R07.9 - Chest pain, unspecified Condition: Stable Prescriptions: No Action tamsulosin [Flomax] 0.4 mg capsule 0.4 mg PO DAILY RF: 0 albuterol sulfate 2.5 mg/0.5 mL solution for nebulization 10 mg INHALATION Q4H PRN (Reason: Shortness of breathe) RF: 0 risperidone 0.5 mg tablet 0.5 mg PO BID RF: 0 melatonin 5 mg capsule 30 mg PO BEDTIME RF: 0 ascorbate calcium (vitamin C) 500 mg tablet 500 mg PO DAILY RF: 0 furosemide 40 mg tablet 40 mg PO BID Qty: 180 RF: 1 potassium chloride 20 mEq tablet extended release 20 meq PO DAILY 90 Days Qty: 90 RF: 1 Eliquis 5 mg tablet 5 mg PO BID 90 Days Qty: 180 RF: 1 spironolactone 25 mg Tablet 25 mg PO DAILY RF: 0 Carafate 100 mg/mL suspension 1 g PO Q6H RF: 0 Nexium 40 mg capsule,delayed release(DR/EC) 40 mg PO DAILY RF: 0 Medrol (Wilfredo) 4 mg tablets,dose pack See Rx Instructions .ROUTE .COMPLEX Qty: 21 RF: 0 Tessalon Perles 100 mg capsule 100 mg PO BID Qty: 14 RF: 0 Discharge Orders: Discharge Order (Routine); Ordered 10/24/19 Ordered By: Jaci Leger Referrals: Ashley Medrano FNP [Primary Care Provider] - 1-3 days Discharge Diet: Advance as tolerated Discharge Activity: Increase activity as tolerated Patient Instructions: Chest Pain (ED) Activity Restrictions/Additional Instructions: You're leaving AGAINST MEDICAL ADVICE and are at risk for or severe permanent disability by doing so. You are more than welcome to return at any time for recheck and for further evaluation and care suture change you change your mind. Please return for return of your pain, shortness of breath, fever, vomiting, or for any other cause for concern. Discharge Date/Time: 10/24/19 19:39 Sign Out Sign Out Data: Patient Sign Out occurred on 10/24/19 at 18:38. Patient's care was discussed, and care was transferred from to Jaci Leger. Coding Level of Care Code ED Speedboat Driver for Chg Fwd Exam Comprehensive Documented by User: Jaci Leger 10/24/19 19:16 HPI - Chest Pain General: Chief Complaint: Chest Pain Stated Complaint: CHEST AND BACK PAIN Time Seen by Provider: 10/24/19 16:21 PFSH ED PFSH: Medical History Acute alteration in mental status Anemia Anticoagulation adequate with anticoagulant therapy ASHD (arteriosclerotic heart disease) Atrial fibrillation was taken off anticoagulation due to GI bleed, has IVC filter Piper's esophagus BPH (benign prostatic hyperplasia) Carcinoma of esophagus radiation esophagitis CHF (congestive heart failure) CHF (congestive heart failure), NYHA class I COPD (chronic obstructive pulmonary disease) COPD exacerbation CVA (cerebral vascular accident) Diabetes Diarrhea Dyslipidemia (high LDL; low HDL) Essential hypertension Gait disturbance Lewy body dementia with behavioral disturbance NATALI (obstructive sleep apnea) Pneumonia Post laminectomy syndrome Pulmonary emboli Surgical History [place] filter in place History of esophagogastroduodenoscopy (EGD) (07/24/19) resolution of Grade D esophagitis, no evidence of carcinoma Previous back surgery S/P angioplasty with stent S/P appendectomy S/P hernia repair S/P tonsillectomy WOOL CLEANER (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 Aicha Roche WOOL CLEANER shunt revision Family History Father CAD (coronary artery disease) Mother CAD (coronary artery disease) Hypertension Sister CAD (coronary artery disease) Diabetes Family/Other Stroke Denies family history of Anesthesia complication Bleeding disorder Social History Smoking and tobacco status: former smoker Quit status (tobacco): has quit using tobacco Alcohol intake: former Course Vital Signs: Vital signs: Vital Signs Temperature 98.7 F 10/24/19 16:16 Pulse Rate 79 10/24/19 16:16 Respiratory Rate 17 10/24/19 16:16 Blood Pressure 133/79 10/24/19 16:16 Pulse Oximetry 99 10/24/19 16:16 MDM - Chest Pain MDM Narrative: Medical decision making narrative: 1909 -patient care inherited by me at change of shift from Dr. Krishnamurthy. Please see his note for his history, physical exam and medical decision-making notes. Upon me seeing the patient he is already demanding to go home. Willie is well-known to me I have cared for him several times. He denies any pain or shortness of breath at this time. He states that he does not want to come to the hospital and he wants to go home at this time. This behavior and decision-making is very typical for Willie. He usually wants to come get checked out but once he is here a very short amount of time he is already wanting to go home. He is refusing a second troponin draw and EKG. I discussed his care with his Esme by phone and she understands and is not surprised by this. She states they try to keep him from coming in today because they were afraid this could happen. Nonetheless she says that she is fine with him going home and we are going to arrange for Medicaid transport back to his home. The patient has been given something to eat and drink and he is more content at this time. At this time I see no life or limb threatening problems by exam, history and EKG. His troponin is slightly elevated but within the range of his normal. Patient was told he could return here if his symptoms change or worsen or he simply change his mind but at this time he continues to just insist that he go home. His was told the same. Lab Data: Attestation: I reviewed the patient's lab results. Labs: Lab Results 10/24/19 10/24/19 10/24/19 Range/Units 16:28 16:28 16:28 WBC 13.2 H (4.0-10.0) 10^3/ uL RBC 4.69 (4.1-5.3) 10^6/u L Hgb 11.7 (11.7-16.6) g/dL Hct 38.7 L (42.0-52.0) % MCV 82.5 (80-94) fL MCH 24.9 L (28.0-34.0) pg MCHC 30.2 (30.0-36.0) g/dL RDW 16.9 H (12.1-15.1) % Plt Count 320 (130-400) 10^3/c mm MPV 11.0 H (7.4-10.4) fL Neut % (Auto) 80.9 % Lymph % (Auto) 11.0 % Mellette % (Auto) 6.8 % Eos % (Auto) 0.3 % Baso % (Auto) 0.2 % Neut # (Auto) 10.68 H (1.8-7.7) 10^3/u L Lymph # (Auto) 1.5 (0.8-4.8) 10^3/u L Mellette # (Auto) 0.9 (0.2-0.9) 10^3/u L Eos # (Auto) 0.0 (0.0-0.8) 10^3/u L Baso # (Auto) 0.0 (0.0-0.1) 10^3/u L Nucleated RBC % (a uto) 0 % Nucleated RBCs # 0.0 /100WBC Sodium 138 (136-145) mmol/L Potassium 4.1 (3.5-5.1) mmol/L Chloride 101 (98-107) mmol/L Carbon Dioxide 25 (22-29) mmol/L Anion Gap 16.1 (5-19) BUN 20 (8-23) mg/dL Creatinine 1.2 (0.7-1.2) mg/dL GFR Calculation Not Reportable Glucose 113 (65-115) mg/dL Calculated Osmolal ity 283 L (285-295) mOsm/k g Calcium 9.0 (8.5-10.5) mg/dL Total Bilirubin 0.3 (0.15-1.2) mg/dL AST 12 (0-40) U/L ALT 17 (0-41) U/L Alkaline Phosphata se 72 (40-130) IU/L Troponin T Baselin e 30 H (0-15) ng/L Total Protein 6.6 (6.6-8.7) g/dL Albumin 4.1 (3.5-5.2) g/dL Globulin 2.5 (1.3-4.6) g/dL Imaging Data^: CXR: Attestation: I personally reviewed and interpreted this imaging study as follows: My impression: No acute cardiopulmonary findings. EKG Data^: EKG 1: Attestation: I personally reviewed and interpreted this EKG as follows: EKG interpretation date: 10/24/19 EKG interpretation time: 16:49 Interpretation: Atrial fibrillation with a ventricular rate of 65 beats a minute, left axis deviation, normal intervals, no blocks, nonspecific ST and T wave changes. Discharge Plan Discharge Patient Disposition: Left Against Medical Advice Clinical Impression: Chest pain Qualifiers: Chest pain type: unspecified Qualified Code(s): R07.9 - Chest pain, unspecified Condition: Stable Prescriptions: No Action tamsulosin [Flomax] 0.4 mg capsule 0.4 mg PO DAILY RF: 0 albuterol sulfate 2.5 mg/0.5 mL solution for nebulization 10 mg INHALATION Q4H PRN (Reason: Shortness of breathe) RF: 0 risperidone 0.5 mg tablet 0.5 mg PO BID RF: 0 melatonin 5 mg capsule 30 mg PO BEDTIME RF: 0 ascorbate calcium (vitamin C) 500 mg tablet 500 mg PO DAILY RF: 0 furosemide 40 mg tablet 40 mg PO BID Qty: 180 RF: 1 potassium chloride 20 mEq tablet extended release 20 meq PO DAILY 90 Days Qty: 90 RF: 1 Eliquis 5 mg tablet 5 mg PO BID 90 Days Qty: 180 RF: 1 spironolactone 25 mg Tablet 25 mg PO DAILY RF: 0 Carafate 100 mg/mL suspension 1 g PO Q6H RF: 0 Nexium 40 mg capsule,delayed release(DR/EC) 40 mg PO DAILY RF: 0 Medrol (Wilfredo) 4 mg tablets,dose pack See Rx Instructions .ROUTE .COMPLEX Qty: 21 RF: 0 Tessalon Perles 100 mg capsule 100 mg PO BID Qty: 14 RF: 0 Discharge Orders: Discharge Order (Routine); Ordered 10/24/19 Ordered By: Jaci Leger Referrals: Ashley Medrano FNP [Primary Care Provider] - 1-3 days Discharge Diet: Advance as tolerated Discharge Activity: Increase activity as tolerated Patient Instructions: Chest Pain (ED) Activity Restrictions/Additional Instructions: You're leaving AGAINST MEDICAL ADVICE and are at risk for or severe permanent disability by doing so. You are more than welcome to return at any time for recheck and for further evaluation and care suture change you change your mind. Please return for return of your pain, shortness of breath, fever, vomiting, or for any other cause for concern. Discharge Date/Time: 10/24/19 19:39 Sign Out Sign Out Data: Patient Sign Out occurred on 10/24/19 at 18:38. Patient's care was discussed, and care was transferred from to Jaci Leger. Coding Level of Care Code ED Speedboat Driver for Irma Fwrandy Exam Comprehensive
[2019-10-24 16:59] LABS: Basophils % 0.2 %; Eosinophils % 0.3 %; Hematocrit 38.7 % (42.0-52.0); Hemoglobin 11.7 g/dL (11.7-16.6); Lymphocytes # 1.5 10^3/uL (0.8-4.8); Mean Corpuscular HGB Conc 30.2 g/dL (30.0-36.0); Mean Corpuscular Hemoglobin 24.9 pg (28.0-34.0); Mean Corpuscular Volume 82.5 fL (80-94); Monocytes # 0.9 10^3/uL (0.2-0.9); Monocytes % 6.8 %; Neutrophils # 10.68 10^3/uL (1.8-7.7); Neutrophils % 80.9 %; Nucleated Red Blood Cells % 0 %; Platelet Count 320 10^3/cmm (130-400); Red Blood Count 4.69 10^6/uL (4.1-5.3); Red Cell Distribution Width 16.9 % (12.1-15.1); White Blood Count 13.2 10^3/uL (4.0-10.0)
[2019-10-24 17:09] LABS: Alanine Aminotransferase 17 U/L (0-41); Albumin Level 4.1 g/dL (3.5-5.2); Alkaline Phosphatase 72 IU/L (40-130); Anion Gap 16.1 (5-19); Aspartate Amino Transferase 12 U/L (0-40); Blood Urea Nitrogen 20 mg/dL (8-23); Carbon Dioxide 25 mmol/L (22-29); Chloride 101 mmol/L (98-107); Globulin 2.5 g/dL (1.3-4.6); Glucose 113 mg/dL (65-115); Osmolality Calculated 283 mOsm/kg (285-295); Potassium 4.1 mmol/L (3.5-5.1); Sodium 138 mmol/L (136-145); Total Bilirubin 0.3 mg/dL (0.15-1.2); Total Protein 6.6 g/dL (6.6-8.7)
[2019-10-24 17:20] LABS: Troponin(5th) Baseline 30 ng/L (0-15)
== END 2019-10-24 19:39 | disposition left against medical advice (07) ==
PROVIDERS: Family Medicine; Emergency Provider Emergency Medicine; PCP Nurse Practitioner Family
DX: R07.9 Chest pain, unspecified (principal); Z79.01 Long term (current) use of anticoagulants; I48.91 Unspecified atrial fibrillation; Z85.01 Personal history of malignant neoplasm of esophagus; I11.0 Hypertensive heart disease with heart failure; I50.9 Heart failure, unspecified; J44.9 Chronic obstructive pulmonary disease, unspecified; E11.9 Type 2 diabetes mellitus without complications; E78.5 Hyperlipidemia, unspecified; G31.83 Neurocognitive disorder with Lewy bodies; F02.80 Dementia in other diseases classified elsewhere, unspecified severity, without behavioral disturbance, psychotic disturbance, mood disturbance, and anxiety; Z87.891 Personal history of nicotine dependence
CPT/HCPCS: 12345; 71045; 80053; 84484; 85025; 93005; 99283

== ENCOUNTER 2019-11-01 18:31 | Emergency (ER) | payer MEDICARE, MEDICAID, SELFPAY ==
[2019-11-01 18:31] VITALS: BP 144/75; PULSE 74; RESP 18; TEMP 36.4; O2SAT 100; BMI 30.7
--- NOTE | 2019-11-01 18:34 | ECG_ITS ---
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 Measurements Intervals [place] Rate: 64 P: [place]: -1 QRS: -18 QRSD: 97 T: 0 QT: 377 QTc: 392 Interpretive Statements ATRIAL FIBRILLATION WITH ABERRANT CONDUCTION OR VENTRICULAR PREMATURE COMPLEXES LOW QRS VOLTAGE IN PRECORDIAL LEADS [QRS DEFLECTION < 1.0 mV IN CHEST LEADS] POSSIBLE RIGHT VENTRICULAR CONDUCTION DELAY [RSR (QR) IN V1/V2] NONSPECIFIC ST & T-WAVE ABNORMALITY ABNORMAL RHYTHM ECG Compared to ECG 10/24/2019 16:49:54 Ventricular premature complex(es) now present Aberrant conduction of supraventricular beat(s) now present T-wave abnormality still present Electronically Signed On 11-03-2019 19:27:54 CDT by Sunil Diane M.D. [email or web address]
--- NOTE | 2019-11-01 18:34 | XRR_ITS ---
PROCEDURE INFORMATION: Exam: XR Chest, 1 View Exam date and time: 11/01/2019 6:35 PM Age: 78 years old Clinical indication: Chest pain; Type not specified; Additional info: Cp TECHNIQUE: Imaging protocol: XR of the chest Views: 1 view. COMPARISON: CR XR chest 1V portable [id number] 10/24/2019 5:11 PM FINDINGS: Tubes, catheters and devices: An apparent intact [employer] shunt is present on the left side. This finding is stable since prior Lungs: Unremarkable. No consolidation. Pleural space: Unremarkable. No pleural effusion. No pneumothorax. Heart/Mediastinum: Unremarkable. No cardiomegaly. Bones/joints: Unremarkable. XR/XR chest 1V portable [id number] IMPRESSION: 1. No acute findings. 2. Intact [employer] shunt left-side
--- NOTE | 2019-11-01 18:39 | ED_ITS ---
HPI - Chest Pain General: Chief Complaint: Chest Pain Stated Complaint: CHEST PAIN Time Seen by Provider: 11/01/19 18:34 Source: patient and EMS Mode of arrival: EMS Limitations: no limitations History of Present Illness: HPI narrative: 78-year-old male who is very well- known to the ER comes in with chest pain. Patient states that intermittent pain over the last week. He was recently released after pneumonia. Patient states his pain is let up and is only 1 out of 10 currently. He denies any shortness of breath. Denies any fever. Denies any nausea or vomiting. MD complaint: chest pain Onset (ago): week(s) Timing of current episode: episodic Prior episodes: No Associated symptoms: Deny abdominal pain, dyspnea, fever(s), nausea or vomiting Review of Systems Const: Denies: fever(s), chills, body aches or change in appetite Eyes: Denies: blurry vision or eye discomfort ENMT: Denies: throat pain or dental pain Card: Denies: chest pain Resp: Denies: dyspnea GI: Denies: abdominal pain, nausea, vomiting or diarrhea : Denies: dysuria Musc: Denies: neck pain or back pain Skin/Breast: Denies: rash Neuro: Denies: headache(s) Psych: Denies: depression Grant/Lymph: Denies: easy bruising All/Imm: Denies: urticaria PFSH ED PFSH: Medical History Acute alteration in mental status Anemia Anticoagulation adequate with anticoagulant therapy ASHD (arteriosclerotic heart disease) Atrial fibrillation was taken off anticoagulation due to GI bleed, has IVC filter Piper's esophagus BPH (benign prostatic hyperplasia) Carcinoma of esophagus radiation esophagitis CHF (congestive heart failure) CHF (congestive heart failure), NYHA class I COPD (chronic obstructive pulmonary disease) COPD exacerbation CVA (cerebral vascular accident) Diabetes Diarrhea Dyslipidemia (high LDL; low HDL) Essential hypertension Gait disturbance Lewy body dementia with behavioral disturbance NATALI (obstructive sleep apnea) Pneumonia Post laminectomy syndrome Pulmonary emboli Surgical History Trip filter in place History of esophagogastroduodenoscopy (EGD) (07/24/19) resolution of Grade D esophagitis, no evidence of carcinoma Previous back surgery S/P angioplasty with stent S/P appendectomy S/P hernia repair S/P tonsillectomy 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 Aicha Roche ADVERTISING CAMPAIGN MANAGER shunt revision Family History Father CAD (coronary artery disease) Mother CAD (coronary artery disease) Hypertension Sister CAD (coronary artery disease) Diabetes Family/Other Stroke Denies family history of Anesthesia complication Bleeding disorder Social History Smoking and tobacco status: former smoker Quit status (tobacco): has quit using tobacco Alcohol intake: former Physical Exam Const: COMMON NORMALS: no acute distress, patient oriented x3 and healthy appearing HENMT: COMMON NORMALS: normocephalic and atraumatic HEAD & SCALP: normocephalic and atraumatic Eye: COMMON NORMALS: Equal, round and reactive pupils present and EOMs intact bilaterally PUPIL: Yes Equal, round and reactive pupils present Neck/C-Spine: COMMON NORMALS: full ROM and supple Chest: COMMONS NORMALS: normal inspection of the chest and normal palpation of entire chest wall Resp: COMMON NORMALS: normal respiratory effort, No retractions, No use of accessory muscles and clear to auscultation bilaterally AUSCULTATION: clear to auscultation bilaterally Cardio: COMMON NORMALS: regular rate, regular rhythm and No murmurs present (Cardio) RATE: regular rate RHYTHM: regular rhythm GI: COMMON NORMALS: Normal to inspection, nondistended, normoactive bowel sounds present, Soft to palpation, non-tender and no masses PALPATION: Yes Soft to palpation Extremity: COMMON NORMALS: normal to inspection and full ROM Neuro: COMMON NORMALS: patient oriented x3, moves all extremities and no focal motor deficits Psych: COMMON NORMALS: mental status grossly normal, Normal thought process present and cooperative THOUGHT PROCESS: Normal thought process present Skin: COMMON NORMALS: no rashes or lesions noted and no wounds GENERAL SKIN EXAM: no rashes or lesions noted Course Vital Signs: Vital signs: Vital Signs Temperature 97.6 F 11/01/19 18:31 Pulse Rate 74 11/01/19 19:02 Respiratory Rate 16 11/01/19 19:02 Blood Pressure 131/68 11/01/19 19:02 Pulse Oximetry 100 11/01/19 19:02 MDM - Chest Pain MDM Narrative: Medical decision making narrative: Willie presents with chest pain that is chronic in nature. After his first troponin he states his been pain-free want to leave. Patient did sign out AMA. I strongly recommended a 2- hour troponin but he states he felt improved and would like to go home. He does have medical decision-making capacity. He is to return if worsening. Lab Data: Labs: Lab Results 11/01/19 11/01/19 11/01/19 Range/Units 18:43 18:43 18:43 WBC 7.7 (4.0-10.0) 10^3/ uL RBC 4.76 (4.1-5.3) 10^6/u L Hgb 11.9 (11.7-16.6) g/dL Hct 39.9 L (42.0-52.0) % MCV 83.8 (80-94) fL MCH 25.0 L (28.0-34.0) pg MCHC 29.8 L (30.0-36.0) g/dL RDW 16.8 H (12.1-15.1) % Plt Count 264 (130-400) 10^3/c mm MPV 10.2 (7.4-10.4) fL Neut % (Auto) 70.6 % Lymph % (Auto) 15.4 % [place] % (Auto) 8.6 % Eos % (Auto) 4.6 % Baso % (Auto) 0.4 % Neut # (Auto) 5.42 (1.8-7.7) 10^3/u L Lymph # (Auto) 1.2 (0.8-4.8) 10^3/u L [place] # (Auto) 0.7 (0.2-0.9) 10^3/u L Eos # (Auto) 0.4 (0.0-0.8) 10^3/u L Baso # (Auto) 0.0 (0.0-0.1) 10^3/u L Nucleated RBC % (a uto) 0 % Nucleated RBCs # 0.0 /100WBC Sodium 138 (136-145) mmol/L Potassium 4.4 (3.5-5.1) mmol/L Chloride 103 (98-107) mmol/L Carbon Dioxide 26 (22-29) mmol/L Anion Gap 13.4 (5-19) BUN 17 (8-23) mg/dL Creatinine 0.9 (0.7-1.2) mg/dL GFR Calculation Not Reportable Glucose 103 (65-115) mg/dL Calculated Osmolal ity 288 (285-295) mOsm/k g Calcium 8.7 (8.5-10.5) mg/dL Total Bilirubin 0.3 (0.15-1.2) mg/dL AST 15 (0-40) U/L ALT 15 (0-41) U/L Alkaline Phosphata se 73 (40-130) IU/L Troponin T Baselin e 31 H (0-15) ng/L Total Protein 6.7 (6.6-8.7) g/dL Albumin 4.3 (3.5-5.2) g/dL Globulin 2.4 (1.3-4.6) g/dL EKG Data^: EKG 1: Attestation: I personally reviewed and interpreted this EKG as follows: EKG interpretation date: 11/01/19 EKG interpretation time: 18:42 Interpretation: A. fib heart rate [address] or T wave abnormalities QRS 97 QTc 387 Discharge Plan Discharge Patient Disposition: Left Against Medical Advice Clinical Impression: Chest pain Condition: Stable Prescriptions: No Action tamsulosin [Flomax] 0.4 mg capsule 0.4 mg PO DAILY RF: 0 risperidone 0.5 mg tablet 0.5 mg PO BID RF: 0 melatonin 5 mg capsule 5 - 10 mg PO BEDTIME RF: 0 ascorbate calcium (vitamin C) 500 mg tablet 500 mg PO DAILY RF: 0 furosemide 40 mg tablet 40 mg PO BID Qty: 180 RF: 1 potassium chloride 20 mEq tablet extended release 20 meq PO DAILY 90 Days Qty: 90 RF: 1 Eliquis 5 mg tablet 5 mg PO BID 90 Days Qty: 180 RF: 1 spironolactone 25 mg Tablet 25 mg PO DAILY RF: 0 sucralfate [Carafate] 100 mg/mL suspension See Rx Instructions .ROUTE .COMPLEX RF: 0 esomeprazole magnesium [Nexium] 40 mg capsule,delayed release(DR/EC) 40 mg PO DAILY RF: 0 methylprednisolone [Medrol (Wilfredo)] 4 mg tablets,dose pack See Rx Instructions .ROUTE .COMPLEX Qty: 21 RF: 0 benzonatate [Tessalon Perles] 100 mg capsule 100 mg PO BID Qty: 14 RF: 0 levofloxacin 750 mg tablet 750 mg PO DAILY RF: 0 Referrals: Ashley Medrano FNP [Primary Care Provider] - Discharge Diet: Advance as tolerated Discharge Activity: Resume usual activity Patient Instructions: Chest Pain (ED) Coding Level of Care Code ED [employer] for Chg Fwd Exam Comprehensive
[2019-11-01 18:50] LABS: Basophils % 0.4 %; Eosinophils # 0.4 10^3/uL (0.0-0.8); Eosinophils % 4.6 %; Hematocrit 39.9 % (42.0-52.0); Hemoglobin 11.9 g/dL (11.7-16.6); Lymphocytes # 1.2 10^3/uL (0.8-4.8); Lymphocytes % 15.4 %; Mean Corpuscular HGB Conc 29.8 g/dL (30.0-36.0); Mean Corpuscular Volume 83.8 fL (80-94); Mean Platelet Volume 10.2 fL (7.4-10.4); Monocytes # 0.7 10^3/uL (0.2-0.9); Monocytes % 8.6 %; Neutrophils # 5.42 10^3/uL (1.8-7.7); Neutrophils % 70.6 %; Nucleated Red Blood Cells % 0 %; Platelet Count 264 10^3/cmm (130-400); Red Blood Count 4.76 10^6/uL (4.1-5.3); Red Cell Distribution Width 16.8 % (12.1-15.1); White Blood Count 7.7 10^3/uL (4.0-10.0)
[2019-11-01 19:02] VITALS: BP 131/68; PULSE 74; RESP 16; O2SAT 100
[2019-11-01 19:15] LABS: Alanine Aminotransferase 15 U/L (0-41); Albumin Level 4.3 g/dL (3.5-5.2); Alkaline Phosphatase 73 IU/L (40-130); Anion Gap 13.4 (5-19); Aspartate Amino Transferase 15 U/L (0-40); Blood Urea Nitrogen 17 mg/dL (8-23); Calcium 8.7 mg/dL (8.5-10.5); Carbon Dioxide 26 mmol/L (22-29); Chloride 103 mmol/L (98-107); Globulin 2.4 g/dL (1.3-4.6); Glucose 103 mg/dL (65-115); Osmolality Calculated 288 mOsm/kg (285-295); Potassium 4.4 mmol/L (3.5-5.1); Sodium 138 mmol/L (136-145); Total Bilirubin 0.3 mg/dL (0.15-1.2); Total Protein 6.7 g/dL (6.6-8.7)
[2019-11-01 19:16] LABS: Troponin(5th) Baseline 31 ng/L (0-15)
[2019-11-01 20:35] VITALS: BP 135/57; PULSE 78; RESP 18; O2SAT 92
== END 2019-11-01 20:35 | disposition left against medical advice (07) ==
PROVIDERS: Emergency Provider Emergency Medicine; PCP Nurse Practitioner Family
DX: R07.9 Chest pain, unspecified (principal); Z53.21 Procedure and treatment not carried out due to patient leaving prior to being seen by health care provider; Z79.01 Long term (current) use of anticoagulants; I48.91 Unspecified atrial fibrillation; Z85.01 Personal history of malignant neoplasm of esophagus; I11.0 Hypertensive heart disease with heart failure; I50.9 Heart failure, unspecified; J44.9 Chronic obstructive pulmonary disease, unspecified; Z86.73 Personal history of transient ischemic attack (TIA), and cerebral infarction without residual deficits; E11.9 Type 2 diabetes mellitus without complications; E78.5 Hyperlipidemia, unspecified; G31.83 Neurocognitive disorder with Lewy bodies; F02.80 Dementia in other diseases classified elsewhere, unspecified severity, without behavioral disturbance, psychotic disturbance, mood disturbance, and anxiety; Z87.891 Personal history of nicotine dependence
CPT/HCPCS: 12345; 71045; 80053; 84484; 85025; 93005; 99283

== ENCOUNTER 2019-11-03 17:36 | Emergency (ER) | payer MEDICARE, MEDICAID, SELFPAY ==
[2019-11-03 17:41] VITALS: BP 114/79; PULSE 82; RESP 18; O2SAT 100; BMI 30.7
--- NOTE | 2019-11-03 17:44 | XRR_ITS ---
PROCEDURE INFORMATION: Exam: XR Chest, 1 View Exam date and time: 11/03/2019 5:56 PM Age: 78 years old Clinical indication: Type not specified; Patient HX: SOB, chest pain, lower back pain; Additional info: Cp TECHNIQUE: Imaging protocol: XR of the chest Views: 1 view. COMPARISON: CR (CHEST, ) 11/01/2019 7:08 PM FINDINGS: Lungs: No pneumonia or pulmonary edema. Pleural space: No pleural effusion or pneumothorax. Heart/Mediastinum: The heart is not felt to be enlarged when allowing for epicardial fat pads. Prior coronary artery stenting. The mediastinal contours are normal. Bones/joints: No acute osseous abnormality. XR/XR chest 1V portable [id number] IMPRESSION: No acute abnormality.
--- NOTE | 2019-11-03 17:44 | ECG_ITS ---
[facility] Test Date: 2019-11-03 Pat Name: Willie Ram Department: Room: Gender: Male Commercial Representative: : 1940 Requested By: Leola Sequeira Order Number: [id number] Kevin MD: Sunil Diane M.D. Measurements Intervals [place] Rate: 85 P: [place]: -1 QRS: -31 QRSD: 108 T: 62 QT: 362 QTc: 431 Interpretive Statements ATRIAL FIBRILLATION LEFT AXIS DEVIATION [QRS AXIS < -30] LOW QRS VOLTAGE IN PRECORDIAL LEADS [QRS DEFLECTION < 1.0 mV IN CHEST LEADS] NONSPECIFIC ST & T-WAVE ABNORMALITY Compared to ECG 11/01/2019 18:42:53 Left-axis deviation now present Ventricular premature complex(es) no longer present Aberrant conduction of supraventricular beat(s) no longer present T-wave abnormality still present Electronically Signed On 11-03-2019 19:00:09 CDT by Sunil Diane M.D. [id number] f
--- NOTE | 2019-11-03 17:45 | W.ED.CHESTPA ---
HPI - Chest Pain General: Chief Complaint: Chest Pain Stated Complaint: CHEST PAIN Time Seen by Provider: 11/03/19 17:43 Source: patient and EMS Mode of arrival: EMS Limitations: no limitations History of Present Illness: HPI narrative: 78-year-old male who is well-known to the ER presents for chest pain. He states he started having pain roughly 5 to 6 hours on the left side of his chest and his back. He states pain is sharp in nature. He denies any worsening improving factors. He denies any shortness of breath. Denies any fevers. Denies any cough MD complaint: chest pain Associated symptoms: Deny abdominal pain, dyspnea, fever(s), nausea or vomiting Review of Systems Const: Denies: fever(s), chills, body aches or change in appetite Eyes: Denies: blurry vision or eye discomfort ENMT: Denies: throat pain or dental pain Card: Reports: chest pain Resp: Denies: dyspnea GI: Denies: abdominal pain, nausea, vomiting or diarrhea : Denies: dysuria Musc: Denies: neck pain or back pain Skin/Breast: Denies: rash Neuro: Denies: headache(s) Psych: Denies: depression Grant/Lymph: Denies: easy bruising All/Imm: Denies: urticaria PFSH ED PFSH: Medical History (Updated 11/03/19 @ 20:51 by Leola Sequeira MD) Acute alteration in mental status Anemia Anticoagulation adequate with anticoagulant therapy ASHD (arteriosclerotic heart disease) Atrial fibrillation was taken off anticoagulation due to GI bleed, has IVC filter Piper's esophagus BPH (benign prostatic hyperplasia) Carcinoma of esophagus radiation esophagitis CHF (congestive heart failure) CHF (congestive heart failure), NYHA class I COPD (chronic obstructive pulmonary disease) COPD exacerbation CVA (cerebral vascular accident) Diabetes Diarrhea Dyslipidemia (high LDL; low HDL) Essential hypertension Gait disturbance Lewy body dementia with behavioral disturbance NATALI (obstructive sleep apnea) Pneumonia Post laminectomy syndrome Pulmonary emboli Surgical History [place] filter in place History of esophagogastroduodenoscopy (EGD) (07/24/19) resolution of Grade D esophagitis, no evidence of carcinoma Previous back surgery S/P angioplasty with stent S/P appendectomy S/P hernia repair S/P tonsillectomy 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 Aicha Roche FACULTY INSTRUCTOR shunt revision Family History Father CAD (coronary artery disease) Mother CAD (coronary artery disease) Hypertension Sister CAD (coronary artery disease) Diabetes Family/Other Stroke Denies family history of Anesthesia complication Bleeding disorder Social History Smoking and tobacco status: former smoker Quit status (tobacco): has quit using tobacco Alcohol intake: former Physical Exam Const: COMMON NORMALS: no acute distress, patient oriented x3 and healthy appearing HENMT: COMMON NORMALS: normocephalic and atraumatic HEAD & SCALP: normocephalic and atraumatic Eye: COMMON NORMALS: Equal, round and reactive pupils present and EOMs intact bilaterally PUPIL: Yes Equal, round and reactive pupils present Neck/C-Spine: COMMON NORMALS: full ROM and supple Chest: COMMONS NORMALS: normal inspection of the chest and normal palpation of entire chest wall Resp: COMMON NORMALS: normal respiratory effort, No retractions, No use of accessory muscles and clear to auscultation bilaterally AUSCULTATION: clear to auscultation bilaterally Cardio: COMMON NORMALS: regular rate, regular rhythm and No murmurs present (Cardio) RATE: regular rate RHYTHM: regular rhythm GI: COMMON NORMALS: Normal to inspection, nondistended, normoactive bowel sounds present, Soft to palpation, non-tender and no masses PALPATION: Yes Soft to palpation Extremity: COMMON NORMALS: normal to inspection and full ROM Neuro: COMMON NORMALS: patient oriented x3, moves all extremities and no focal motor deficits Psych: COMMON NORMALS: mental status grossly normal, Normal thought process present and cooperative THOUGHT PROCESS: Normal thought process present Skin: COMMON NORMALS: no rashes or lesions noted and no wounds GENERAL SKIN EXAM: no rashes or lesions noted Course Vital Signs: Vital signs: Vital Signs Pulse Rate 83 11/03/19 20:04 Respiratory Rate 16 11/03/19 20:04 Blood Pressure 128/74 11/03/19 20:04 Pulse Oximetry 92 11/03/19 20:04 MDM - Chest Pain MDM Narrative: Medical decision making narrative: Willie presents with chest pain that is atypical in nature. Patient's repeat troponin shows no change. X-ray here is normal. He has no signs of pulmonary embolism. Colitis stable for discharge is return if worsening. Lab Data: Labs: Lab Results 11/03/19 11/03/19 11/03/19 Range/Units 18:31 18:31 18:31 WBC 6.6 (4.0-10.0) 10^3/ uL RBC 4.90 (4.1-5.3) 10^6/u L Hgb 12.3 (11.7-16.6) g/dL Hct 40.9 L (42.0-52.0) % MCV 83.5 (80-94) fL MCH 25.1 L (28.0-34.0) pg MCHC 30.1 (30.0-36.0) g/dL RDW 16.7 H (12.1-15.1) % Plt Count 243 (130-400) 10^3/c mm MPV 10.5 H (7.4-10.4) fL Neut % (Auto) 71.1 % Lymph % (Auto) 14.1 % [facility] % (Auto) 9.0 % Eos % (Auto) 5.0 % Baso % (Auto) 0.5 % Neut # (Auto) 4.69 (1.8-7.7) 10^3/u L Lymph # (Auto) 0.9 (0.8-4.8) 10^3/u L [facility] # (Auto) 0.6 (0.2-0.9) 10^3/u L Eos # (Auto) 0.3 (0.0-0.8) 10^3/u L Baso # (Auto) 0.0 (0.0-0.1) 10^3/u L Nucleated RBC % (a uto) 0 % Nucleated RBCs # 0.0 /100WBC PT 15.50 H (12.1-14.9) SECO NDS INR 1.19 (0.8-1.2) Sodium 139 (136-145) mmol/L Potassium 3.7 (3.5-5.1) mmol/L Chloride 102 (98-107) mmol/L Carbon Dioxide 25 (22-29) mmol/L Anion Gap 15.7 (5-19) BUN 12 (8-23) mg/dL Creatinine 1.3 H (0.7-1.2) mg/dL GFR Calculation Not Reportable Glucose 83 (65-115) mg/dL Calculated Osmolal ity 287 (285-295) mOsm/k g Calcium 9.1 (8.5-10.5) mg/dL Total Bilirubin 0.3 (0.15-1.2) mg/dL AST 16 (0-40) U/L ALT 16 (0-41) U/L Alkaline Phosphata se 79 (40-130) IU/L Troponin T Baselin e (0-15) ng/L Delta Troponin T (0-10) ABS# NT-Pro-B Natriuret Pep 695 H (0-450) pg/mL Total Protein 6.9 (6.6-8.7) g/dL Albumin 4.2 (3.5-5.2) g/dL Globulin 2.7 (1.3-4.6) g/dL Lipase 48 (13-60) U/L 11/03/19 11/03/19 Range/Units 18:31 20:21 WBC (4.0-10.0) 10^3/ uL RBC (4.1-5.3) 10^6/u L Hgb (11.7-16.6) g/dL Hct (42.0-52.0) % MCV (80-94) fL MCH (28.0-34.0) pg MCHC (30.0-36.0) g/dL RDW (12.1-15.1) % Plt Count (130-400) 10^3/c mm MPV (7.4-10.4) fL Neut % (Auto) % Lymph % (Auto) % [facility] % (Auto) % Eos % (Auto) % Baso % (Auto) % Neut # (Auto) (1.8-7.7) 10^3/u L Lymph # (Auto) (0.8-4.8) 10^3/u L [facility] # (Auto) (0.2-0.9) 10^3/u L Eos # (Auto) (0.0-0.8) 10^3/u L Baso # (Auto) (0.0-0.1) 10^3/u L Nucleated RBC % (a uto) % Nucleated RBCs # /100WBC PT (12.1-14.9) SECO NDS INR (0.8-1.2) Sodium (136-145) mmol/L Potassium (3.5-5.1) mmol/L Chloride (98-107) mmol/L Carbon Dioxide (22-29) mmol/L Anion Gap (5-19) BUN (8-23) mg/dL Creatinine (0.7-1.2) mg/dL GFR Calculation Glucose (65-115) mg/dL Calculated Osmolal ity (285-295) mOsm/k g Calcium (8.5-10.5) mg/dL Total Bilirubin (0.15-1.2) mg/dL AST (0-40) U/L ALT (0-41) U/L Alkaline Phosphata se (40-130) IU/L Troponin T Baselin e 37 H (0-15) ng/L Delta Troponin T 0.47 (0-10) ABS# NT-Pro-B Natriuret Pep (0-450) pg/mL Total Protein (6.6-8.7) g/dL Albumin (3.5-5.2) g/dL Globulin (1.3-4.6) g/dL Lipase (13-60) U/L EKG Data^: EKG 1: Attestation: I personally reviewed and interpreted this EKG as follows: EKG interpretation date: 11/03/19 EKG interpretation time: 19:10 Interpretation: paced hr [address] or t wave abnormalities qrs 157 qtc 409 Discharge Plan Discharge Patient Disposition: Home Clinical Impression: Atypical chest pain Condition: Stable Prescriptions: No Action tamsulosin [Flomax] 0.4 mg capsule 0.4 mg PO DAILY RF: 0 risperidone 0.5 mg tablet 0.5 mg PO BID RF: 0 melatonin 5 mg capsule 5 - 10 mg PO BEDTIME RF: 0 ascorbate calcium (vitamin C) 500 mg tablet 500 mg PO DAILY RF: 0 furosemide 40 mg tablet 40 mg PO BID Qty: 180 RF: 1 potassium chloride 20 mEq tablet extended release 20 meq PO DAILY 90 Days Qty: 90 RF: 1 Eliquis 5 mg tablet 5 mg PO BID 90 Days Qty: 180 RF: 1 spironolactone 25 mg Tablet 25 mg PO DAILY RF: 0 sucralfate [Carafate] 100 mg/mL suspension See Rx Instructions .ROUTE .COMPLEX RF: 0 esomeprazole magnesium [Nexium] 40 mg capsule,delayed release(DR/EC) 40 mg PO DAILY RF: 0 benzonatate [Tessalon Perles] 100 mg capsule 100 mg PO BID Qty: 14 RF: 0 vitamin B complex Tablet 1 tab PO DAILY RF: 0 levofloxacin 750 mg tablet 750 mg PO DAILY RF: 0 Discharge Orders: Discharge Order (Routine); Ordered 11/03/19 Ordered By: Leola Sequeira Referrals: Ashley Medrano FNP [Primary Care Provider] - 1-3 days Discharge Diet: Advance as tolerated Discharge Activity: Resume usual activity Patient Instructions: Chest Pain (ED) Coding Level of Care Code ED Manager Quantitative for Irma Fwd Exam Comprehensive
[2019-11-03 18:17] VITALS: BP 147/69; PULSE 73; RESP 21; O2SAT 95
[2019-11-03 18:36] LABS: Basophils % 0.5 %; Eosinophils # 0.3 10^3/uL (0.0-0.8); Hematocrit 40.9 % (42.0-52.0); Hemoglobin 12.3 g/dL (11.7-16.6); Lymphocytes # 0.9 10^3/uL (0.8-4.8); Lymphocytes % 14.1 %; Mean Corpuscular HGB Conc 30.1 g/dL (30.0-36.0); Mean Corpuscular Hemoglobin 25.1 pg (28.0-34.0); Mean Corpuscular Volume 83.5 fL (80-94); Mean Platelet Volume 10.5 fL (7.4-10.4); Monocytes # 0.6 10^3/uL (0.2-0.9); Neutrophils # 4.69 10^3/uL (1.8-7.7); Neutrophils % 71.1 %; Nucleated Red Blood Cells % 0 %; Platelet Count 243 10^3/cmm (130-400); Red Cell Distribution Width 16.7 % (12.1-15.1); White Blood Count 6.6 10^3/uL (4.0-10.0)
[2019-11-03 18:56] LABS: INR 1.19 (0.8-1.2)
[2019-11-03 19:02] LABS: Troponin(5th) Baseline 37 ng/L (0-15)
[2019-11-03 19:11] LABS: Alanine Aminotransferase 16 U/L (0-41); Albumin Level 4.2 g/dL (3.5-5.2); Alkaline Phosphatase 79 IU/L (40-130); Anion Gap 15.7 (5-19); Aspartate Amino Transferase 16 U/L (0-40); Blood Urea Nitrogen 12 mg/dL (8-23); Calcium 9.1 mg/dL (8.5-10.5); Carbon Dioxide 25 mmol/L (22-29); Chloride 102 mmol/L (98-107); Globulin 2.7 g/dL (1.3-4.6); Glucose 83 mg/dL (65-115); Lipase 48 U/L (13-60); NT Pro B Type Natriuretic Pept 695 pg/mL (0-450); Osmolality Calculated 287 mOsm/kg (285-295); Potassium 3.7 mmol/L (3.5-5.1); Sodium 139 mmol/L (136-145); Total Bilirubin 0.3 mg/dL (0.15-1.2); Total Protein 6.9 g/dL (6.6-8.7)
[2019-11-03 19:27] VITALS: BP 132/68; PULSE 81; RESP 18; O2SAT 96
--- NOTE | 2019-11-03 19:44 | ECG_ITS ---
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 Measurements Intervals [place] Rate: 74 P: CT: -1 QRS: -33 QRSD: 110 T: 93 QT: 385 QTc: 428 Interpretive Statements ATRIAL FIBRILLATION LEFT AXIS DEVIATION [QRS AXIS < -30] LOW QRS VOLTAGE IN PRECORDIAL LEADS [QRS DEFLECTION < 1.0 mV IN CHEST LEADS] POSSIBLE LATERAL MYOCARDIAL INFARCTION , OF INDETERMINATE AGE [30 ms Q WAVE IN I/aVL/V5/V6] Compared to ECG 11/03/2019 17:51:00 Myocardial infarct finding now present T-wave abnormality no longer present Electronically Signed On 11-04-2019 18:34:16 CDT by Wilton Griffin M.D. [id number]
[2019-11-03 20:04] VITALS: BP 128/74; PULSE 83; RESP 16; O2SAT 92
[2019-11-03 20:47] LABS: Troponin 5 2HR 37.47 ng/L (0-15); Troponin 5 2HR Delta 0.47 ABS# (0-10)
[2019-11-03 21:46] VITALS: BP 121/65; PULSE 87; RESP 16; O2SAT 96
== END 2019-11-03 21:48 | disposition home or self-care (01) ==
PROVIDERS: Emergency Provider Emergency Medicine; PCP Nurse Practitioner Family
DX: R07.89 Other chest pain (principal); Z79.01 Long term (current) use of anticoagulants; I48.91 Unspecified atrial fibrillation; Z85.01 Personal history of malignant neoplasm of esophagus; I11.0 Hypertensive heart disease with heart failure; I50.9 Heart failure, unspecified; J44.9 Chronic obstructive pulmonary disease, unspecified; Z86.73 Personal history of transient ischemic attack (TIA), and cerebral infarction without residual deficits; E11.9 Type 2 diabetes mellitus without complications; E78.5 Hyperlipidemia, unspecified; G31.83 Neurocognitive disorder with Lewy bodies; F02.80 Dementia in other diseases classified elsewhere, unspecified severity, without behavioral disturbance, psychotic disturbance, mood disturbance, and anxiety; Z87.891 Personal history of nicotine dependence
CPT/HCPCS: 12345; 36415; 71045; 80053; 83690; 83880; 84484; 85025; 85610; 93005; 99282; 99283

== ENCOUNTER 2019-11-09 17:50 | Emergency (ER) | payer MEDICARE, MEDICAID, SELFPAY ==
--- NOTE | 2019-11-09 17:53 | XRR_ITS ---
PROCEDURE INFORMATION: Exam: XR Chest, 1 View Exam date and time: 11/09/2019 5:56 PM Age: 78 years old Clinical indication: Right-sided chest pain; Prior surgery; Surgery date: 6+ months; Surgery type: Stent TECHNIQUE: Imaging protocol: XR of the chest Views: 1 view. COMPARISON: CR XR chest 1V portable [id number] 11/03/2019 5:45 PM FINDINGS: Lungs: Unremarkable. No consolidation. Pleural space: Unremarkable. No pleural effusion. No pneumothorax. Heart/Mediastinum: Unremarkable. No cardiomegaly. Bones/joints: Unremarkable. There is a intact ORNAMENTAL MACHINE OPERATOR shunt left-side stable since prior XR/XR chest 1V portable [id number] IMPRESSION: No acute findings. Stable intact left side ORNAMENTAL MACHINE OPERATOR shunt
--- NOTE | 2019-11-09 17:53 | ECG_ITS ---
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 Measurements Intervals [place] Rate: 76 P: [place]: -1 QRS: -17 QRSD: 100 T: 63 QT: 391 QTc: 440 Interpretive Statements ATRIAL FIBRILLATION LOW QRS VOLTAGE IN PRECORDIAL LEADS [QRS DEFLECTION < 1.0 mV IN CHEST LEADS] INCOMPLETE RIGHT BUNDLE BRANCH BLOCK [90+ ms QRS DURATION, TERMINAL R IN V1/V2, 40+ ms S IN I/aVL/V4/V5/V6] NONSPECIFIC ST & T-WAVE ABNORMALITY ABNORMAL RHYTHM ECG Compared to ECG 11/03/2019 20:06:09 Incomplete right bundle-branch block now present T-wave abnormality now present Left-axis deviation no longer present Myocardial infarct finding no longer present Electronically Signed On 11-10-2019 17:56:28 CDT by Wilton Griffin M.D. [email or web address]/NU/[id number] cerna
[2019-11-09 18:02] VITALS: BP 127/79; PULSE 72; RESP 18; TEMP 36.9; O2SAT 98; BMI 32.1
[2019-11-09 18:36] LABS: Basophils % 0.6 %; Eosinophils # 0.5 10^3/uL (0.0-0.8); Eosinophils % 9.4 %; Hematocrit 37.9 % (42.0-52.0); Hemoglobin 11.4 g/dL (11.7-16.6); Lymphocytes % 18.2 %; Mean Corpuscular HGB Conc 30.1 g/dL (30.0-36.0); Mean Corpuscular Hemoglobin 25.2 pg (28.0-34.0); Mean Corpuscular Volume 83.8 fL (80-94); Monocytes # 0.6 10^3/uL (0.2-0.9); Monocytes % 11.5 %; Neutrophils % 60.1 %; Nucleated Red Blood Cells % 0 %; Platelet Count 189 10^3/cmm (130-400); Red Blood Count 4.52 10^6/uL (4.1-5.3); Red Cell Distribution Width 16.3 % (12.1-15.1); White Blood Count 5.3 10^3/uL (4.0-10.0)
[2019-11-09 18:57] LABS: Alanine Aminotransferase 13 U/L (0-41); Albumin Level 4.2 g/dL (3.5-5.2); Alkaline Phosphatase 76 IU/L (40-130); Aspartate Amino Transferase 15 U/L (0-40); Blood Urea Nitrogen 15 mg/dL (8-23); Calcium 8.9 mg/dL (8.5-10.5); Carbon Dioxide 26 mmol/L (22-29); Chloride 103 mmol/L (98-107); Globulin 2.4 g/dL (1.3-4.6); Glucose 98 mg/dL (65-115); Osmolality Calculated 291 mOsm/kg (285-295); Sodium 140 mmol/L (136-145); Total Bilirubin 0.3 mg/dL (0.15-1.2); Total Protein 6.6 g/dL (6.6-8.7)
[2019-11-09 18:58] LABS: Troponin(5th) Baseline 38 ng/L (0-15)
[2019-11-09] MEDS: ondansetron 2 mg/ML SDV 2 mL 4 MG IVP (19:08)
[2019-11-09 19:09] VITALS: RESP 19; O2SAT 97
[2019-11-09] MEDS: morphine 4 mg/mL SDV 1 mL IVP (19:09)
[2019-11-09 19:28] VITALS: BP 130/99; PULSE 72; O2SAT 99
--- NOTE | 2019-11-09 19:34 | PC.NURSE ---
patient report recieved from NARGIS Kee and care transferred to Paula BARILLAS
--- NOTE | 2019-11-09 19:53 | ECG_ITS ---
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 Measurements Intervals [place] Rate: 76 P: [place]: -1 QRS: -17 QRSD: 100 T: 63 QT: 391 QTc: 440 Interpretive Statements ATRIAL FIBRILLATION LOW QRS VOLTAGE IN PRECORDIAL LEADS [QRS DEFLECTION < 1.0 mV IN CHEST LEADS] INCOMPLETE RIGHT BUNDLE BRANCH BLOCK [90+ ms QRS DURATION, TERMINAL R IN V1/V2, 40+ ms S IN I/aVL/V4/V5/V6] NONSPECIFIC ST & T-WAVE ABNORMALITY ABNORMAL RHYTHM ECG Compared to ECG 11/03/2019 20:06:09 Incomplete right bundle-branch block now present T-wave abnormality now present Left-axis deviation no longer present Myocardial infarct finding no longer present Electronically Signed On 11-10-2019 17:59:45 CDT by Wilton Griffin M.D. [id number] [email or web address]
[2019-11-09 20:16] VITALS: BP 139/74; PULSE 73; O2SAT 97
--- NOTE | 2019-11-09 20:25 | ED_ITS ---
HPI - Chest Pain General: Chief Complaint: Chest Pain Stated Complaint: CHEST PAIN Time Seen by Provider: 11/09/19 18:26 History of Present Illness: HPI narrative: Willie is a 78-year-old man well- known to the ER. He presents with right-sided chest pain. He says he has had a low-grade fever and cough as well. Minimal sputum production. He says the pain radiates into his right arm. He does have a history of coronary artery disease. He also has a history of heart failure and pneumonia. MD complaint: chest pain Pertinent past history: coronary artery disease and other Onset (ago): hour(s) Timing of current episode: constant Prior episodes: Yes Onset: during rest Pain location: right chest Pain radiation: right arm Severity: moderate Quality: tightness and aching Relieving factors: nothing Exacerbating factors: palpation and movement Associated symptoms: Reports dyspnea, fever(s) and leg edema; Deny abdominal pain, palpitations or vomiting Review of Systems Const: Reports: fever(s) Eyes: Denies: change in vision ENMT: Denies: odynophagia, swelling of lips/tongue or sinus pain Card: Reports: chest pain, irregular heart rhythm, edema, swelling of feet/ankles and dyspnea on exertion; Denies: palpitations Resp: Reports: dyspnea and productive cough; Denies: non-productive cough or wheezing GI: Denies: abdominal pain or vomiting : Denies: difficulty urinating or hematuria Musc: Denies: neck pain or back pain Skin/Breast: Denies: rash or erythema Neuro: Denies: headache(s), dizziness or vertigo Psych: Denies: anxiety PFSH ED PFSH: Medical History (Updated 11/09/19 @ 20:36 by Arnoldo Espinoza DO) Acute alteration in mental status Anemia Anticoagulation adequate with anticoagulant therapy ASHD (arteriosclerotic heart disease) Atrial fibrillation was taken off anticoagulation due to GI bleed, has IVC filter Piper's esophagus BPH (benign prostatic hyperplasia) Carcinoma of esophagus radiation esophagitis CHF (congestive heart failure) CHF (congestive heart failure), NYHA class I COPD (chronic obstructive pulmonary disease) COPD exacerbation CVA (cerebral vascular accident) Diabetes Diarrhea Dyslipidemia (high LDL; low HDL) Essential hypertension Gait disturbance Lewy body dementia with behavioral disturbance NATALI (obstructive sleep apnea) Pneumonia Post laminectomy syndrome Pulmonary emboli Surgical History [place] filter in place History of esophagogastroduodenoscopy (EGD) (07/24/19) resolution of Grade D esophagitis, no evidence of carcinoma Previous back surgery S/P angioplasty with stent S/P appendectomy S/P hernia repair S/P 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 Aicha Roche LABOR EMPLOYMENT ASSOCIATE shunt revision Family History Father CAD (coronary artery disease) Mother CAD (coronary artery disease) Hypertension Sister CAD (coronary artery disease) Diabetes Family/Other Stroke Denies family history of Anesthesia complication Bleeding disorder Social History Smoking and tobacco status: former smoker Quit status (tobacco): has quit using tobacco Alcohol intake: former Physical Exam Const: GENERAL APPEARANCE: well developed ORIENTATION/CONSCIOUSNESS: Yes oriented to person and Yes oriented to place; not oriented to time HENMT: COMMON NORMALS: normocephalic, external ears normal and Normal external nose present HEAD & SCALP: normocephalic; no scalp tenderness NOSE: Normal external nose present and No nasal discharge present EXTERNAL EAR: Yes external ears normal Eye: COMMON NORMALS: Equal, round and reactive pupils present, EOMs intact kathy aterally and conjunctivae normal EYELID: eyelids normal CONJUNCTIVA: Yes conjunctivae normal PUPIL: Yes Equal, round and reactive pupils present Neck/C-Spine: GENERAL: No tracheal deviation Chest: COMMONS NORMALS: normal inspection of the chest CHEST: Yes tenderness Resp: COMMON NORMALS: clear to auscultation bilaterally EFFORT & INSPECTION: No tachypneic, No respiratory distress, No retractions, No uses accessory muscles and No tracheal deviation AUSCULTATION: clear to auscultation bilaterally, no rhonchi, no wheezes and lung sounds not diminished Cardio: COMMON NORMALS: regular rate and regular rhythm RATE: regular rate RHYTHM: regular rhythm HEART SOUNDS: no murmurs PERIPHERAL PULSES: r adial pulses present GI: INSPECTION: No abdominal distension AUSCULTATION: No Hyperactive bowel sounds present and No Hypoactive bowel sounds present PALPATION: No Guarding due to palpation present (GI) and No Rigid due to palpation PERCUSSION: no dullness to percussion and no tympanic to percussion Extremity: NARRATIVE EXTREMITY EXAM: 2+ edema. Neuro: SENSORIUM/ORIENTATION: Yes oriented to person, Yes oriented to place and No oriented to time Psych: COMMON NORMALS: mental status grossly normal Skin: COMMON NORMALS: no rashes or lesions noted GENERAL SKIN EXAM: no rashes or lesions noted Course Vital Signs: Vital signs: Vital Signs Temperature 98.4 F 11/09/19 18:02 Pulse Rate 73 11/09/19 21:04 Respiratory Rate 15 11/09/19 21:04 Blood Pressure 146/79 11/09/19 21:04 Pulse Oximetry 98 11/09/19 21:04 MDM - Chest Pain MDM Narrative: Medical decision making narrative: Willie actually looks pretty well today. He is not in any respiratory distress. He is breathing room air. He has had some cough. He always has swollen legs. His chest x-ray is negative. His first troponin is at baseline. His hemoglobin is 11.4. His white blood cell count is 5.3. If his second troponin comes back negative, we will allow him home. Because of a history of fever and cough we will swab him for novel coronavirus prior to discharge. Lab Data: Labs: Lab Results 11/09/19 11/09/19 11/09/19 Range/Units 18:32 18:32 18:32 WBC 5.3 (4.0-10.0) 10^3/ uL RBC 4.52 (4.1-5.3) 10^6/u L Hgb 11.4 L (11.7-16.6) g/dL Hct 37.9 L (42.0-52.0) % MCV 83.8 (80-94) fL MCH 25.2 L (28.0-34.0) pg MCHC 30.1 (30.0-36.0) g/dL RDW 16.3 H (12.1-15.1) % Plt Count 189 (130-400) 10^3/c mm MPV 10.0 (7.4-10.4) fL Neut % (Auto) 60.1 % Lymph % (Auto) 18.2 % [place] % (Auto) 11.5 % Eos % (Auto) 9.4 % Baso % (Auto) 0.6 % Neut # (Auto) 3.20 (1.8-7.7) 10^3/u L Lymph # (Auto) 1.0 (0.8-4.8) 10^3/u L [place] # (Auto) 0.6 (0.2-0.9) 10^3/u L Eos # (Auto) 0.5 (0.0-0.8) 10^3/u L Baso # (Auto) 0.0 (0.0-0.1) 10^3/u L Nucleated RBC % (a uto) 0 % Nucleated RBCs # 0.0 /100WBC Sodium 140 (136-145) mmol/L Potassium 4.0 (3.5-5.1) mmol/L Chloride 103 (98-107) mmol/L Carbon Dioxide 26 (22-29) mmol/L Anion Gap 15.0 (5-19) BUN 15 (8-23) mg/dL Creatinine 1.1 (0.7-1.2) mg/dL GFR Calculation Not Reportable Glucose 98 (65-115) mg/dL Calculated Osmolal ity 291 (285-295) mOsm/k g Calcium 8.9 (8.5-10.5) mg/dL Total Bilirubin 0.3 (0.15-1.2) mg/dL AST 15 (0-40) U/L ALT 13 (0-41) U/L Alkaline Phosphata se 76 (40-130) IU/L Troponin T Baselin e 38 H (0-15) ng/L Troponin T 120 Min [place] (0-15) ng/L Delta Troponin T (0-10) ABS# Total Protein 6.6 (6.6-8.7) g/dL Albumin 4.2 (3.5-5.2) g/dL Globulin 2.4 (1.3-4.6) g/dL 11/09/19 Range/Units 19:55 WBC (4.0-10.0) 10^3/ uL RBC (4.1-5.3) 10^6/u L Hgb (11.7-16.6) g/dL Hct (42.0-52.0) % MCV (80-94) fL MCH (28.0-34.0) pg MCHC (30.0-36.0) g/dL RDW (12.1-15.1) % Plt Count (130-400) 10^3/c mm MPV (7.4-10.4) fL Neut % (Auto) % Lymph % (Auto) % [place] % (Auto) % Eos % (Auto) % Baso % (Auto) % Neut # (Auto) (1.8-7.7) 10^3/u L Lymph # (Auto) (0.8-4.8) 10^3/u L [place] # (Auto) (0.2-0.9) 10^3/u L Eos # (Auto) (0.0-0.8) 10^3/u L Baso # (Auto) (0.0-0.1) 10^3/u L Nucleated RBC % (a uto) % Nucleated RBCs # /100WBC Sodium (136-145) mmol/L Potassium (3.5-5.1) mmol/L Chloride (98-107) mmol/L Carbon Dioxide (22-29) mmol/L Anion Gap (5-19) BUN (8-23) mg/dL Creatinine (0.7-1.2) mg/dL GFR Calculation Glucose (65-115) mg/dL Calculated Osmolal ity (285-295) mOsm/k g Calcium (8.5-10.5) mg/dL Total Bilirubin (0.15-1.2) mg/dL AST (0-40) U/L ALT (0-41) U/L Alkaline Phosphata se (40-130) IU/L Troponin T Baselin e (0-15) ng/L Troponin T 120 Min [place] 35.34 H (0-15) ng/L Delta Troponin T -2.66 L (0-10) ABS# Total Protein (6.6-8.7) g/dL Albumin (3.5-5.2) g/dL Globulin (1.3-4.6) g/dL Discharge Plan Discharge Patient Disposition: Home Clinical Impression: Bronchitis Condition: Stable Prescriptions: New doxycycline hyclate 100 mg capsule 100 mg PO Q12H 10 Days Qty: 20 RF: 0 Medrol (Wilfredo) 4 mg tablets,dose pack See Rx Instructions .ROUTE .COMPLEX Qty: 21 RF: 0 No Action tamsulosin [Flomax] 0.4 mg capsule 0.4 mg PO DAILY RF: 0 risperidone 0.5 mg tablet 0.5 mg PO BID RF: 0 melatonin 5 mg capsule 5 - 10 mg PO BEDTIME RF: 0 ascorbate calcium (vitamin C) 500 mg tablet 500 mg PO DAILY RF: 0 furosemide 40 mg tablet 40 mg PO BID Qty: 180 RF: 1 potassium chloride 20 mEq tablet extended release 20 meq PO DAILY 90 Days Qty: 90 RF: 1 Eliquis 5 mg tablet 5 mg PO BID 90 Days Qty: 180 RF: 1 spironolactone 25 mg Tablet 25 mg PO DAILY RF: 0 sucralfate [Carafate] 100 mg/mL suspension See Rx Instructions .ROUTE .COMPLEX RF: 0 esomeprazole magnesium [Nexium] 40 mg capsule,delayed release(DR/EC) 40 mg PO DAILY RF: 0 benzonatate [Tessalon Perles] 100 mg capsule 100 mg PO BID Qty: 14 RF: 0 vitamin B complex Tablet 1 tab PO DAILY RF: 0 levofloxacin 750 mg tablet 750 mg PO DAILY RF: 0 Discharge Orders: Discharge Order (Routine); Ordered 11/09/19 Ordered By: Arnoldo Espinoza Referrals: Ashley Medrano FNP [Primary Care Provider] - 4-7 days Discharge Diet: Usual diet Discharge Activity: Increase activity as tolerated Patient Instructions: Acute Bronchitis (ED) Activity Restrictions/Additional Instructions: Return to the ER for fever greater than 100 despite 2-3 doses of antibiotics, worsening shortness of breath, worsening pain despite treatment, other concerning symptoms. You should quarantine your self at home until you know the results of your COVID-19 test. Discharge Date/Time: 11/09/19 21:05 Coding Level of Care Code ED Covering Machine Operator for Irma Delgado Exam Comprehensive
[2019-11-09 20:53] LABS: Troponin 5 2HR 35.34 ng/L (0-15); Troponin 5 2HR Delta -2.66 ABS# (0-10)
[2019-11-09 21:04] VITALS: BP 124/62; BP 146/79; PULSE 72; PULSE 73; RESP 15; RESP 16; O2SAT 97; O2SAT 98
== END 2019-11-09 21:05 | disposition home or self-care (01) ==
PROVIDERS: Family Medicine; Emergency Provider Emergency Medicine; PCP Nurse Practitioner Family
DX: J40 Bronchitis, not specified as acute or chronic (principal); Z79.01 Long term (current) use of anticoagulants; I48.91 Unspecified atrial fibrillation; Z85.01 Personal history of malignant neoplasm of esophagus; I11.0 Hypertensive heart disease with heart failure; I50.9 Heart failure, unspecified; J44.9 Chronic obstructive pulmonary disease, unspecified; Z86.73 Personal history of transient ischemic attack (TIA), and cerebral infarction without residual deficits; E11.9 Type 2 diabetes mellitus without complications; E78.5 Hyperlipidemia, unspecified; G31.83 Neurocognitive disorder with Lewy bodies; F02.80 Dementia in other diseases classified elsewhere, unspecified severity, without behavioral disturbance, psychotic disturbance, mood disturbance, and anxiety; Z87.891 Personal history of nicotine dependence
CPT/HCPCS: 12345; 36415; 71045; 80053; 84484; 85025; 93005; 96374; 96375; 99282; 99284; J2270; J2405

== ENCOUNTER 2019-11-13 17:56 | Emergency (ER) | payer MEDICARE, MEDICAID, SELFPAY ==
[2019-11-13 17:57] VITALS: BMI 26.7
--- NOTE | 2019-11-13 17:59 | ECG_ITS ---
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 Measurements Intervals [place] Rate: 78 P: VT: -1 QRS: -20 QRSD: 97 T: 91 QT: 379 QTc: 432 Interpretive Statements ATRIAL FIBRILLATION LOW QRS VOLTAGE IN PRECORDIAL LEADS [QRS DEFLECTION < 1.0 mV IN CHEST LEADS] POSSIBLE RIGHT VENTRICULAR CONDUCTION DELAY [RSR (QR) IN V1/V2] NONSPECIFIC ST & T-WAVE ABNORMALITY Compared to ECG 11/09/2019 18:11:23 Incomplete right bundle-branch block no longer present T-wave abnormality still present Electronically Signed On 11-13-2019 19:26:25 CDT by Wilton Griffin M.D. [id number]
--- NOTE | 2019-11-13 17:59 | XR_ITS ---
WS: [id number] Portable AP upright chest, 11/13/2019 Clinical Data: cp Comparison: Portable chest, 11/09/2019. Findings: No nodules, masses or effusions are seen. The heart is slightly enlarged. The pulmonary vas cularity is not increased. No pneumonia or pneumothorax is seen. The aortic arch is tortuous as is th e descending aorta. There is a ventriculoperitoneal shunt tube overlying the left chest. XR/XR chest 1V portable [id number] Impression: Cardiomegaly and atherosclerosis.
[2019-11-13 18:03] VITALS: BP 145/70; PULSE 76; RESP 20; TEMP 37.1; O2SAT 98
--- NOTE | 2019-11-13 18:12 | W.ED.CHESTPA ---
HPI - Chest Pain General: Chief Complaint: Chest Pain Stated Complaint: diff breathing / chest pain Time Seen by Provider: 11/13/19 17:59 Source: patient and EMS Mode of arrival: EMS Limitations: no limitations History of Present Illness: HPI narrative: 78-year-old male who is very well-known to the ER for chronic chest pain. He states he is continued to have chest pain over the last 3 weeks. Denies any worsening improving factors. Patient states the pain is sharp in nature. Denies any shortness of breath. Denies any vomiting or diarrhea. Associated symptoms: Deny abdominal pain, dyspnea, fever(s), nausea or vomiting Review of Systems Const: Denies: fever(s), chills, body aches or change in appetite Eyes: Denies: blurry vision or eye discomfort ENMT: Denies: throat pain or dental pain Card: Reports: chest pain Resp: Denies: dyspnea GI: Denies: abdominal pain, nausea, vomiting or diarrhea : Denies: dysuria Musc: Denies: neck pain or back pain Skin/Breast: Denies: rash Neuro: Denies: headache(s) Psych: Denies: depression Grant/Lymph: Denies: easy bruising All/Imm: Denies: urticaria PFSH ED PFSH: Medical History (Updated 11/13/19 @ 20:36 by Leola Sequeira MD) Acute alteration in mental status Anemia Anticoagulation adequate with anticoagulant therapy ASHD (arteriosclerotic heart disease) Atrial fibrillation was taken off anticoagulation due to GI bleed, has IVC filter Piper's esophagus BPH (benign prostatic hyperplasia) Carcinoma of esophagus radiation esophagitis CHF (congestive heart failure) CHF (congestive heart failure), NYHA class I COPD (chronic obstructive pulmonary disease) COPD exacerbation CVA (cerebral vascular accident) Diabetes Diarrhea Dyslipidemia (high LDL; low HDL) Essential hypertension Gait disturbance Lewy body dementia with behavioral disturbance NATALI (obstructive sleep apnea) Pneumonia Post laminectomy syndrome Pulmonary emboli Surgical History [place] filter in place History of esophagogastroduodenoscopy (EGD) (07/24/19) resolution of Grade D esophagitis, no evidence of carcinoma Previous back surgery S/P angioplasty with stent S/P appendectomy S/P hernia repair S/P tonsillectomy 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 Aicha Roche CIRCULAR DISTRIBUTOR shunt revision Family History Father CAD (coronary artery disease) Mother CAD (coronary artery disease) Hypertension Sister CAD (coronary artery disease) Diabetes Family/Other Stroke Denies family history of Anesthesia complication Bleeding disorder Social History Smoking and tobacco status: former smoker Quit status (tobacco): has quit using tobacco Alcohol intake: former Physical Exam Const: COMMON NORMALS: no acute distress, patient oriented x3 and healthy appearing HENMT: COMMON NORMALS: normocephalic and atraumatic HEAD & SCALP: normocephalic and atraumatic Eye: COMMON NORMALS: Equal, round and reactive pupils present and EOMs intact bilaterally PUPIL: Yes Equal, round and reactive pupils present Neck/C-Spine: COMMON NORMALS: full ROM and supple Chest: COMMONS NORMALS: normal inspection of the chest and normal palpation of entire chest wall Resp: COMMON NORMALS: normal respiratory effort, No retractions, No use of accessory muscles and clear to auscultation bilaterally AUSCULTATION: clear to auscultation bilaterally Cardio: COMMON NORMALS: regular rate, regular rhythm and No murmurs present (Cardio) RATE: regular rate RHYTHM: regular rhythm GI: COMMON NORMALS: Normal to inspection, nondistended, normoactive bowel sounds present, Soft to palpation, non-tender and no masses PALPATION: Yes Soft to palpation Extremity: COMMON NORMALS: normal to inspection and full ROM Neuro: COMMON NORMALS: patient oriented x3, moves all extremities and no focal motor deficits Psych: COMMON NORMALS: mental status grossly normal, Normal thought process present and cooperative THOUGHT PROCESS: Normal thought process present Skin: COMMON NORMALS: no rashes or lesions noted and no wounds GENERAL SKIN EXAM: no rashes or lesions noted Course Vital Signs: Vital signs: Vital Signs Temperature 98.8 F 11/13/19 18:03 Pulse Rate 72 11/13/19 19:15 Respiratory Rate 17 11/13/19 19:15 Blood Pressure 114/84 11/13/19 19:15 Pulse Oximetry 95 11/13/19 19:15 MDM - Chest Pain MDM Narrative: Medical decision making narrative: Patient presents with chest pain. Patient's repeat troponin is unchanged. He is pain-free here. He is stable for discharge and is to follow-up with PCP and return if worsening. Lab Data: Labs: Lab Results 11/13/19 11/13/19 11/13/19 Range/Units 18:19 18:19 18:19 WBC 4.5 (4.0-10.0) 10^3/ uL RBC 4.62 (4.1-5.3) 10^6/u L Hgb 11.4 L (11.7-16.6) g/dL Hct 38.6 L (42.0-52.0) % MCV 83.5 (80-94) fL MCH 24.7 L (28.0-34.0) pg MCHC 29.5 L (30.0-36.0) g/dL RDW 16.1 H (12.1-15.1) % Plt Count 213 (130-400) 10^3/c mm MPV 10.3 (7.4-10.4) fL Neut % (Auto) 55.2 % Lymph % (Auto) 20.5 % [place] % (Auto) 13.7 % Eos % (Auto) 9.5 % Baso % (Auto) 0.9 % Neut # (Auto) 2.50 (1.8-7.7) 10^3/u L Lymph # (Auto) 0.9 (0.8-4.8) 10^3/u L [place] # (Auto) 0.6 (0.2-0.9) 10^3/u L Eos # (Auto) 0.4 (0.0-0.8) 10^3/u L Baso # (Auto) 0.0 (0.0-0.1) 10^3/u L Nucleated RBC % (a uto) 0 % Nucleated RBCs # 0.0 /100WBC Sodium 135 L (136-145) mmol/L Potassium 4.3 (3.5-5.1) mmol/L Chloride 101 (98-107) mmol/L Carbon Dioxide 25 (22-29) mmol/L Anion Gap 13.3 (5-19) BUN 10 (8-23) mg/dL Creatinine 1.1 (0.7-1.2) mg/dL GFR Calculation Not Reportable Glucose 95 (65-115) mg/dL Calculated Osmolal ity 279 L (285-295) mOsm/k g Calcium 9.1 (8.5-10.5) mg/dL Total Bilirubin 0.2 (0.15-1.2) mg/dL AST 17 (0-40) U/L ALT 14 (0-41) U/L Alkaline Phosphata se 87 (40-130) IU/L Troponin T Baselin e 32 H (0-15) ng/L Delta Troponin T (0-10) ABS# Total Protein 6.5 L (6.6-8.7) g/dL Albumin 4.2 (3.5-5.2) g/dL Globulin 2.3 (1.3-4.6) g/dL 11/13/19 Range/Units 19:59 WBC (4.0-10.0) 10^3/ uL RBC (4.1-5.3) 10^6/u L Hgb (11.7-16.6) g/dL Hct (42.0-52.0) % MCV (80-94) fL MCH (28.0-34.0) pg MCHC (30.0-36.0) g/dL RDW (12.1-15.1) % Plt Count (130-400) 10^3/c mm MPV (7.4-10.4) fL Neut % (Auto) % Lymph % (Auto) % [place] % (Auto) % Eos % (Auto) % Baso % (Auto) % Neut # (Auto) (1.8-7.7) 10^3/u L Lymph # (Auto) (0.8-4.8) 10^3/u L [place] # (Auto) (0.2-0.9) 10^3/u L Eos # (Auto) (0.0-0.8) 10^3/u L Baso # (Auto) (0.0-0.1) 10^3/u L Nucleated RBC % (a uto) % Nucleated RBCs # /100WBC Sodium (136-145) mmol/L Potassium (3.5-5.1) mmol/L Chloride (98-107) mmol/L Carbon Dioxide (22-29) mmol/L Anion Gap (5-19) BUN (8-23) mg/dL Creatinine (0.7-1.2) mg/dL GFR Calculation Glucose (65-115) mg/dL Calculated Osmolal ity (285-295) mOsm/k g Calcium (8.5-10.5) mg/dL Total Bilirubin (0.15-1.2) mg/dL AST (0-40) U/L ALT (0-41) U/L Alkaline Phosphata se (40-130) IU/L Troponin T Baselin e (0-15) ng/L Delta Troponin T 0.03 (0-10) ABS# Total Protein (6.6-8.7) g/dL Albumin (3.5-5.2) g/dL Globulin (1.3-4.6) g/dL Imaging Data^: CXR: Attestation: I personally reviewed and interpreted this imaging study as follows: My impression: no acute abnormality EKG Data^: EKG 1: Attestation: I personally reviewed and interpreted this EKG as follows: EKG interpretation date: 11/13/19 EKG interpretation time: 17:27 Interpretation: afib hr [address] or t wave abnormalities qrs 97 qtc 412 Discharge Plan Discharge Patient Disposition: Home Clinical Impression: Chest pain Qualifiers: Chest pain type: unspecified Qualified Code(s): R07.9 - Chest pain, unspecified Condition: Stable Prescriptions: No Action tamsulosin [Flomax] 0.4 mg capsule 0.4 mg PO DAILY RF: 0 risperidone 0.5 mg tablet 0.5 mg PO BID RF: 0 melatonin 5 mg capsule 5 - 10 mg PO BEDTIME RF: 0 ascorbate calcium (vitamin C) 500 mg tablet 500 mg PO DAILY RF: 0 furosemide 40 mg tablet 40 mg PO BID Qty: 180 RF: 1 potassium chloride 20 mEq tablet extended release 20 meq PO DAILY 90 Days Qty: 90 RF: 1 Eliquis 5 mg tablet 5 mg PO BID 90 Days Qty: 180 RF: 1 spironolactone 25 mg Tablet 25 mg PO DAILY RF: 0 sucralfate [Carafate] 100 mg/mL suspension See Rx Instructions .ROUTE .COMPLEX RF: 0 esomeprazole magnesium [Nexium] 40 mg capsule,delayed release(DR/EC) 40 mg PO DAILY RF: 0 benzonatate [Tessalon Perles] 100 mg capsule 100 mg PO BID Qty: 14 RF: 0 vitamin B complex Tablet 1 tab PO DAILY RF: 0 levofloxacin 750 mg tablet 750 mg PO DAILY RF: 0 doxycycline hyclate 100 mg capsule 100 mg PO Q12H 10 Days Qty: 20 RF: 0 methylprednisolone [Medrol (Wilfredo)] 4 mg tablets,dose pack See Rx Instructions .ROUTE .COMPLEX Qty: 21 RF: 0 Discharge Orders: Discharge Order (Routine); Ordered 11/13/19 Ordered By: Leola Sequeira Referrals: Ashley Medrano FNP [Primary Care Provider] - 1-3 days Discharge Diet: Advance as tolerated Discharge Activity: Resume usual activity Patient Instructions: Chest Pain (ED) Coding Level of Care Code ED Diaphragm Builder for Samig Fwd Exam Comprehensive
[2019-11-13 18:26] LABS: Basophils % 0.9 %; Eosinophils # 0.4 10^3/uL (0.0-0.8); Eosinophils % 9.5 %; Hematocrit 38.6 % (42.0-52.0); Hemoglobin 11.4 g/dL (11.7-16.6); Lymphocytes # 0.9 10^3/uL (0.8-4.8); Lymphocytes % 20.5 %; Mean Corpuscular HGB Conc 29.5 g/dL (30.0-36.0); Mean Corpuscular Hemoglobin 24.7 pg (28.0-34.0); Mean Corpuscular Volume 83.5 fL (80-94); Mean Platelet Volume 10.3 fL (7.4-10.4); Monocytes # 0.6 10^3/uL (0.2-0.9); Monocytes % 13.7 %; Neutrophils % 55.2 %; Nucleated Red Blood Cells % 0 %; Platelet Count 213 10^3/cmm (130-400); Red Blood Count 4.62 10^6/uL (4.1-5.3); Red Cell Distribution Width 16.1 % (12.1-15.1); White Blood Count 4.5 10^3/uL (4.0-10.0)
[2019-11-13 18:57] LABS: Alanine Aminotransferase 14 U/L (0-41); Albumin Level 4.2 g/dL (3.5-5.2); Alkaline Phosphatase 87 IU/L (40-130); Anion Gap 13.3 (5-19); Aspartate Amino Transferase 17 U/L (0-40); Blood Urea Nitrogen 10 mg/dL (8-23); Calcium 9.1 mg/dL (8.5-10.5); Carbon Dioxide 25 mmol/L (22-29); Chloride 101 mmol/L (98-107); Globulin 2.3 g/dL (1.3-4.6); Glucose 95 mg/dL (65-115); Osmolality Calculated 279 mOsm/kg (285-295); Potassium 4.3 mmol/L (3.5-5.1); Sodium 135 mmol/L (136-145); Total Bilirubin 0.2 mg/dL (0.15-1.2); Total Protein 6.5 g/dL (6.6-8.7)
[2019-11-13 19:00] LABS: Troponin(5th) Baseline 32 ng/L (0-15)
[2019-11-13 19:15] VITALS: BP 114/84; PULSE 72; RESP 17; O2SAT 95
[2019-11-13 20:34] LABS: Troponin 5 2HR 32.03 ng/L (0-15); Troponin 5 2HR Delta 0.03 ABS# (0-10)
[2019-11-13 20:49] VITALS: BP 144/92; PULSE 78; RESP 18; O2SAT 98
== END 2019-11-13 21:05 | disposition home or self-care (01) ==
PROVIDERS: Emergency Provider Emergency Medicine; PCP Nurse Practitioner Family
DX: R07.9 Chest pain, unspecified (principal); Z79.01 Long term (current) use of anticoagulants; I48.91 Unspecified atrial fibrillation; Z85.01 Personal history of malignant neoplasm of esophagus; I11.0 Hypertensive heart disease with heart failure; I50.9 Heart failure, unspecified; J44.9 Chronic obstructive pulmonary disease, unspecified; Z86.73 Personal history of transient ischemic attack (TIA), and cerebral infarction without residual deficits; E11.9 Type 2 diabetes mellitus without complications; E78.5 Hyperlipidemia, unspecified; G31.83 Neurocognitive disorder with Lewy bodies; F02.80 Dementia in other diseases classified elsewhere, unspecified severity, without behavioral disturbance, psychotic disturbance, mood disturbance, and anxiety; Z87.891 Personal history of nicotine dependence
CPT/HCPCS: 12345; 71045; 80053; 84484; 85025; 93005; 99282; 99284

== ENCOUNTER 2019-11-14 13:33 | Emergency (ER) | payer MEDICARE, MEDICAID, SELFPAY ==
[2019-11-14 13:34] VITALS: BP 91/41; PULSE 75; RESP 16; TEMP 36.7; O2SAT 97; BMI 27.8
--- NOTE | 2019-11-14 13:34 | XR_ITS ---
WS: [id number] Portable AP upright chest, 11/14/2019 Clinical Data: cp Comparison: Portable chest, 11/13/2019 Findings: No nodules, masses or effusions are seen. The heart is normal. The pulmonary vascularity is not increased. No pneumonia or pneumothorax is seen. The aortic arch and descending aorta are tortuo us. There is a stent in the coronary circulation. There is a ventriculoperitoneal shunt tube. XR/XR chest 1V portable [id number] Impression: Atherosclerosis.
[2019-11-14 14:53] LABS: Basophils % 0.4 %; Eosinophils # 0.5 10^3/uL (0.0-0.8); Eosinophils % 10.3 %; Hematocrit 38.9 % (42.0-52.0); Hemoglobin 11.4 g/dL (11.7-16.6); Lymphocytes # 1.2 10^3/uL (0.8-4.8); Lymphocytes % 23.5 %; Mean Corpuscular HGB Conc 29.3 g/dL (30.0-36.0); Mean Corpuscular Hemoglobin 24.8 pg (28.0-34.0); Mean Corpuscular Volume 84.6 fL (80-94); Mean Platelet Volume 10.3 fL (7.4-10.4); Monocytes # 0.8 10^3/uL (0.2-0.9); Neutrophils # 2.56 10^3/uL (1.8-7.7); Neutrophils % 50.6 %; Nucleated Red Blood Cells % 0 %; Platelet Count 227 10^3/cmm (130-400); Red Cell Distribution Width 16.2 % (12.1-15.1); White Blood Count 5.1 10^3/uL (4.0-10.0)
[2019-11-14 15:10] LABS: Alanine Aminotransferase 14 U/L (0-41); Alkaline Phosphatase 90 IU/L (40-130); Anion Gap 12.9 (5-19); Aspartate Amino Transferase 16 U/L (0-40); Blood Urea Nitrogen 11 mg/dL (8-23); Calcium 9.1 mg/dL (8.5-10.5); Carbon Dioxide 27 mmol/L (22-29); Chloride 101 mmol/L (98-107); Globulin 2.3 g/dL (1.3-4.6); Glucose 91 mg/dL (65-115); Osmolality Calculated 283 mOsm/kg (285-295); Potassium 3.9 mmol/L (3.5-5.1); Sodium 137 mmol/L (136-145); Total Bilirubin 0.2 mg/dL (0.15-1.2); Total Protein 6.3 g/dL (6.6-8.7)
[2019-11-14 15:11] LABS: Troponin(5th) Baseline 30 ng/L (0-15)
--- NOTE | 2019-11-14 15:31 | W.ED.CHESTPA ---
Documented by User: Isabella John 11/14/19 16:32 HPI - Chest Pain General: Chief Complaint: Chest Pain Stated Complaint: CHEST PAIN Time Seen by Provider: 11/14/19 13:38 Source: patient Mode of arrival: ambulatory Limitations: no limitations History of Present Illness: MD complaint: chest pain Onset (ago): unknown (this am but states its been off and on) Timing of current episode: episodic Prior episodes: Yes Onset: during rest and during exertion Pain location: substernal Pain radiation: right arm Severity: mild Quality: heaviness and dull Relieving factors: nothing Exacerbating factors: nothing Associated symptoms: Reports no associated symptoms and dyspnea; Deny abdominal pain, fever(s), nausea, palpitations, syncope or vomiting Treatment prior to arrival: none Risk Factors: Coronary artery disease risk factors: hyperlipidemia and hypertension Review of Systems General: Reports: 10 or more systems reviewed and unremarkable except in HPI and below Const: Denies: fever(s), chills or malaise Eyes: Denies: change in vision or blurry vision ENMT: Denies: throat pain, mouth pain or dental pain Card: Reports: chest pain and dyspnea on exertion; Denies: palpitations, irregular heart rhythm, edema, swelling of feet/ankles, lightheadedness, syncope or orthopnea Resp: Reports: dyspnea; Denies: productive cough, non-productive cough, wheezing, stridor or pain on inspiration GI: Denies: abdominal pain, nausea, vomiting or diarrhea : Denies: flank pain, difficulty urinating, dysuria or urinary frequency Musc: Denies: neck pain or back pain Neuro: Denies: headache(s), numbness in extremities, weakness in extremities, sensory changes, lack of coordination, difficulty walking, dizziness or vertigo Psych: Denies: suicidal ideation [facility] ED PFSH: Medical History (Updated 11/14/19 @ 15:44 by Leola Sequeira MD) Acute alteration in mental status Anemia Anticoagulation adequate with anticoagulant therapy ASHD (arteriosclerotic heart disease) Atrial fibrillation was taken off anticoagulation due to GI bleed, has IVC filter Ppier's esophagus BPH (benign prostatic hyperplasia) Carcinoma of esophagus radiation esophagitis CHF (congestive heart failure) CHF (congestive heart failure), NYHA class I COPD (chronic obstructive pulmonary disease) COPD exacerbation CVA (cerebral vascular accident) Diabetes Diarrhea Dyslipidemia (high LDL; low HDL) Essential hypertension Gait disturbance Lewy body dementia with behavioral disturbance NATALI (obstructive sleep apnea) Pneumonia Post laminectomy syndrome Pulmonary emboli Surgical History Trip filter in place History of esophagogastroduodenoscopy (EGD) (07/24/19) resolution of Grade D esophagitis, no evidence of carcinoma Previous back surgery S/P angioplasty with stent S/P appendectomy S/P hernia repair S/P tonsillectomy [employer]ER (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 Aicha Roche [employer] shunt revision Family History Father CAD (coronary artery disease) Mother CAD (coronary artery disease) Hypertension Sister CAD (coronary artery disease) Diabetes Family/Other Stroke Denies family history of Anesthesia complication Bleeding disorder Social History Smoking and tobacco status: former smoker Quit status (tobacco): has quit using tobacco Alcohol intake: former Physical Exam Const: COMMON NORMALS: no acute distress, average body habitus, patient oriented x3, no limitations, healthy appearing, alert and well nourished HENMT: COMMON NORMALS: normocephalic, atraumatic, hearing grossly normal bilaterally, external ears normal, EAC's normal, TM's normal bilaterally, Normal external nose present, Normal nasal mucous membranes and turbinates present, moist oral mucous membranes, oropharynx normal, dentition normal and gingiva normal HEAD & SCALP: normocephalic and atraumatic NOSE: Normal external nose present and Normal nasal mucous membranes and turbinates present EXTERNAL EAR: Yes external ears normal EXTERNAL AUDITORY CANAL: EAC's normal TYMPANIC MEMBRANE: TM's normal bilaterally Eye: COMMON NORMALS: Equal, round and reactive pupils present, EOMs intact bilaterally, conjunctivae normal, no scleral icterus, no papilledema, normal visual hathaway by confrontation and fundi normal bilaterally CONJUNCTIVA: Yes conjunctivae normal PUPIL: Yes Equal, round and reactive pupils present DIRECT OPHTHALMOSCOPY: Yes no papilledema and Yes fundi normal bilaterally Neck/C-Spine: COMMON NORMALS: full ROM, no lymphadenopathy, supple, no meningeal signs, no JVD, Thyroid normal and No carotid bruits THYROID: Thyroid normal Lymph: LYMPHATIC: no lymphadenopathy noted Chest: COMMONS NORMALS: normal inspection of the chest, normal palpation of entire chest wall, normal inspection of the breasts and normal palpation of the breasts Resp: COMMON NORMALS: normal respiratory effort, No retractions, No use of accessory muscles, clear to auscultation bilaterally and percussion normal AUSCULTATION: clear to auscultation bilaterally PERCUSSION: percussion normal Cardio: COMMON NORMALS: no JVD, regular rate, regular rhythm, No gallops present (Cardio), No clicks present (Cardio), No murmurs present (Cardio), No rub (Cardio) and Peripheral pulses 2+ throughout RATE: regular rate RHYTHM: regular rhythm PERIPHERAL PULSES: Peripheral pulses 2+ throughout GI: COMMON NORMALS: Normal to inspection, nondistended, normoactive bowel sounds present, Soft to palpation, non-tender, No hepatosplenomegaly present, no masses and no bruits PALPATION: Yes Soft to palpation and Yes No hepatosplenomegaly present : COMMON NORMALS: Yes no CVA tenderness BLADDER/KIDNEY EXAM: Yes no CVA tenderness Back/Pelvis: COMMON NORMALS: no CVA tenderness, thoracic and lumbar spine normal to inspection, no thoracic nor lumbar tenderness, thoraco-lumbar ROM normal and straight leg raise negative bilaterally Extremity: LEFT LOWER EXTREMITY: Yes hip joint OTHER: pain denies injury or trauma pt states it is minimal Neuro: COMMON NORMALS: patient oriented x3, CN's II-XII intact bilaterally, moves all extremities, no focal motor deficits, no sensory deficits noted and gait normal SENSORIUM/ORIENTATION: Yes alert MENINGEAL SIGNS: Yes no meningeal signs Psych: COMMON NORMALS: mental status grossly normal, Normal thought process present, cooperative, normal affect, speech normal, activity/motor behavior normal, denies hallucinations, denies homicidal ideation and denies suicidal ideation SPEECH: Yes normal speech THOUGHT PROCESS: Normal thought process present Skin: COMMON NORMALS: no rashes or lesions noted, no wounds, turgor normal, no jaundice, no petechiae and no mottling GENERAL SKIN EXAM: no rashes or lesions noted and turgor normal Course ED course: Dr. Sequeira assumed care of patient Vital Signs: Vital signs: Vital Signs Temperature 98.1 F 11/14/19 13:34 Pulse Rate 75 11/14/19 13:34 Respiratory Rate 16 11/14/19 13:34 Blood Pressure 91/41 11/14/19 13:34 Pulse Oximetry 97 11/14/19 13:34 MDM - Chest Pain Lab Data: Labs: Lab Results 11/14/19 11/14/19 11/14/19 Range/Units 14:23 14:23 14:23 WBC Cancelled Corrected WBC Cancelled RBC Cancelled Hgb Cancelled Hct Cancelled MCV Cancelled MCH Cancelled MCHC Cancelled RDW Cancelled Plt Count Cancelled MPV Cancelled Gran % Cancelled Neut % (Auto) Cancelled Lymph % (Auto) Cancelled [place] % (Auto) Cancelled Eos % (Auto) Cancelled Baso % (Auto) Cancelled Neut # (Auto) Cancelled Lymph # (Auto) Cancelled [place] # (Auto) Cancelled Eos # (Auto) Cancelled Baso # (Auto) Cancelled Absolute Gran (aut o) Cancelled Nucleated RBC % (a uto) Cancelled Nucleated RBCs # Cancelled Sodium Cancelled Potassium Cancelled Chloride Cancelled Carbon Dioxide Cancelled Anion Gap Cancelled BUN Cancelled Creatinine Cancelled GFR Calculation Cancelled Glucose Cancelled Calculated Osmolal ity Cancelled Calcium Cancelled Total Bilirubin Cancelled AST Cancelled ALT Cancelled Alkaline Phosphata se Cancelled Troponin T Baselin e Cancelled Total Protein Cancelled Albumin Cancelled Globulin Cancelled 11/14/19 11/14/19 11/14/19 Range/Units 14:49 14:49 14:49 WBC 5.1 Corrected WBC RBC 4.60 Hgb 11.4 L Hct 38.9 L MCV 84.6 MCH 24.8 L MCHC 29.3 L RDW 16.2 H Plt Count 227 MPV 10.3 Gran % Neut % (Auto) 50.6 Lymph % (Auto) 23.5 [place] % (Auto) 15.0 Eos % (Auto) 10.3 Baso % (Auto) 0.4 Neut # (Auto) 2.56 Lymph # (Auto) 1.2 [place] # (Auto) 0.8 Eos # (Auto) 0.5 Baso # (Auto) 0.0 Absolute Gran (aut o) Nucleated RBC % (a uto) 0 Nucleated RBCs # 0.0 Sodium 137 Potassium 3.9 Chloride 101 Carbon Dioxide 27 Anion Gap 12.9 BUN 11 Creatinine 1.1 GFR Calculation Not Reportable Glucose 91 Calculated Osmolal ity 283 L Calcium 9.1 Total Bilirubin 0.2 AST 16 ALT 14 Alkaline Phosphata se 90 Troponin T Baselin e 30 H Total Protein 6.3 L Albumin 4.0 Globulin 2.3 Discharge Plan Discharge Patient Disposition: Home Clinical Impression: Atypical chest pain Condition: Stable Prescriptions: No Action tamsulosin [Flomax] 0.4 mg capsule 0.4 mg PO DAILY RF: 0 risperidone 0.5 mg tablet 0.5 mg PO BID RF: 0 melatonin 5 mg capsule 5 - 10 mg PO BEDTIME RF: 0 ascorbate calcium (vitamin C) 500 mg tablet 500 mg PO DAILY RF: 0 furosemide 40 mg tablet 40 mg PO BID Qty: 180 RF: 1 potassium chloride 20 mEq tablet extended release 20 meq PO DAILY 90 Days Qty: 90 RF: 1 Eliquis 5 mg tablet 5 mg PO BID 90 Days Qty: 180 RF: 1 spironolactone 25 mg Tablet 25 mg PO DAILY RF: 0 sucralfate [Carafate] 100 mg/mL suspension See Rx Instructions .ROUTE .COMPLEX RF: 0 esomeprazole magnesium [Nexium] 40 mg capsule,delayed release(DR/EC) 40 mg PO DAILY RF: 0 benzonatate [Tessalon Perles] 100 mg capsule 100 mg PO BID Qty: 14 RF: 0 vitamin B complex Tablet 1 tab PO DAILY RF: 0 levofloxacin 750 mg tablet 750 mg PO DAILY RF: 0 doxycycline hyclate 100 mg capsule 100 mg PO Q12H 10 Days Qty: 20 RF: 0 methylprednisolone [Medrol (Wilfredo)] 4 mg tablets,dose pack See Rx Instructions .ROUTE .COMPLEX Qty: 21 RF: 0 Discharge Orders: Discharge Order (Routine); Ordered 11/14/19 Ordered By: Leola Sequeira Referrals: Ashley Medrano FNP [Primary Care Provider] - Discharge Diet: Advance as tolerated Discharge Activity: Resume usual activity Patient Instructions: Chest Pain (ED) Discharge Date/Time: 11/14/19 16:10 Coding Level of Care Code ED Emergency Vehicle Operator for Irma Delgado Documented by User: Leola Sequeira MD 11/14/19 15:56 HPI - Chest Pain General: Chief Complaint: Chest Pain Stated Complaint: CHEST PAIN Time Seen by Provider: 11/14/19 13:38 PFS ED PFSH: Medical History (Updated 11/14/19 @ 15:44 by Leola Sequeira MD) Acute alteration in mental status Anemia Anticoagulation adequate with anticoagulant therapy ASHD (arteriosclerotic heart disease) Atrial fibrillation was taken off anticoagulation due to GI bleed, has IVC filter Piper's esophagus BPH (benign prostatic hyperplasia) Carcinoma of esophagus radiation esophagitis CHF (congestive heart failure) CHF (congestive heart failure), NYHA class I COPD (chronic obstructive pulmonary disease) COPD exacerbation CVA (cerebral vascular accident) Diabetes Diarrhea Dyslipidemia (high LDL; low HDL) Essential hypertension Gait disturbance Lewy body dementia with behavioral disturbance NATALI (obstructive sleep apnea) Pneumonia Post laminectomy syndrome Pulmonary emboli Surgical History Trip filter in place History of esophagogastroduodenoscopy (EGD) (07/24/19) resolution of Grade D esophagitis, no evidence of carcinoma Previous back surgery S/P angioplasty with stent S/P appendectomy S/P hernia repair S/P tonsillectomy [employer] WORKER (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 Aicha Roche [employer] WORKER shunt revision Family History Father CAD (coronary artery disease) Mother CAD (coronary artery disease) Hypertension Sister CAD (coronary artery disease) Diabetes Family/Other Stroke Denies family history of Anesthesia complication Bleeding disorder Social History Smoking and tobacco status: former smoker Quit status (tobacco): has quit using tobacco Alcohol intake: former Course Vital Signs: Vital signs: Vital Signs Temperature 98.1 F 11/14/19 13:34 Pulse Rate 75 11/14/19 13:34 Respiratory Rate 16 11/14/19 13:34 Blood Pressure 91/41 11/14/19 13:34 Pulse Oximetry 97 11/14/19 13:34 MDM - Chest Pain MDM Narrative: Medical decision making narrative: Patient presents with chest pain that is atypical in nature. Patient has been seen here multiple times including yesterday for his pain. His troponin is unchanged from yesterday. Patient here is complaining about being here now wants to be discharged. I feel he is stable for discharge I feel he does not need his 2-hour troponin as he is at his baseline. He is stable for discharge is to follow-up with his PCP and return if worsening. He understands and agrees to the plan. Lab Data: Labs: Lab Results 11/14/19 11/14/19 11/14/19 Range/Units 14:23 14:23 14:23 WBC Cancelled Corrected WBC Cancelled RBC Cancelled Hgb Cancelled Hct Cancelled MCV Cancelled MCH Cancelled MCHC Cancelled RDW Cancelled Plt Count Cancelled MPV Cancelled Gran % Cancelled Neut % (Auto) Cancelled Lymph % (Auto) Cancelled [place] % (Auto) Cancelled Eos % (Auto) Cancelled Baso % (Auto) Cancelled Neut # (Auto) Cancelled Lymph # (Auto) Cancelled [place] # (Auto) Cancelled Eos # (Auto) Cancelled Baso # (Auto) Cancelled Absolute Gran (aut o) Cancelled Nucleated RBC % (a uto) Cancelled Nucleated RBCs # Cancelled Sodium Cancelled Potassium Cancelled Chloride Cancelled Carbon Dioxide Cancelled Anion Gap Cancelled BUN Cancelled Creatinine Cancelled GFR Calculation Cancelled Glucose Cancelled Calculated Osmolal ity Cancelled Calcium Cancelled Total Bilirubin Cancelled AST Cancelled ALT Cancelled Alkaline Phosphata se Cancelled Troponin T Baselin e Cancelled Total Protein Cancelled Albumin Cancelled Globulin Cancelled 11/14/19 11/14/19 11/14/19 Range/Units 14:49 14:49 14:49 WBC 5.1 Corrected WBC RBC 4.60 Hgb 11.4 L Hct 38.9 L MCV 84.6 MCH 24.8 L MCHC 29.3 L RDW 16.2 H Plt Count 227 MPV 10.3 Gran % Neut % (Auto) 50.6 Lymph % (Auto) 23.5 [place] % (Auto) 15.0 Eos % (Auto) 10.3 Baso % (Auto) 0.4 Neut # (Auto) 2.56 Lymph # (Auto) 1.2 [place] # (Auto) 0.8 Eos # (Auto) 0.5 Baso # (Auto) 0.0 Absolute Gran (aut o) Nucleated RBC % (a uto) 0 Nucleated RBCs # 0.0 Sodium 137 Potassium 3.9 Chloride 101 Carbon Dioxide 27 Anion Gap 12.9 BUN 11 Creatinine 1.1 GFR Calculation Not Reportable Glucose 91 Calculated Osmolal ity 283 L Calcium 9.1 Total Bilirubin 0.2 AST 16 ALT 14 Alkaline Phosphata se 90 Troponin T Baselin e 30 H Total Protein 6.3 L Albumin 4.0 Globulin 2.3 Discharge Plan Discharge Patient Disposition: Home Clinical Impression: Atypical chest pain Condition: Stable Prescriptions: No Action tamsulosin [Flomax] 0.4 mg capsule 0.4 mg PO DAILY RF: 0 risperidone 0.5 mg tablet 0.5 mg PO BID RF: 0 melatonin 5 mg capsule 5 - 10 mg PO BEDTIME RF: 0 ascorbate calcium (vitamin C) 500 mg tablet 500 mg PO DAILY RF: 0 furosemide 40 mg tablet 40 mg PO BID Qty: 180 RF: 1 potassium chloride 20 mEq tablet extended release 20 meq PO DAILY 90 Days Qty: 90 RF: 1 Eliquis 5 mg tablet 5 mg PO BID 90 Days Qty: 180 RF: 1 spironolactone 25 mg Tablet 25 mg PO DAILY RF: 0 sucralfate [Carafate] 100 mg/mL suspension See Rx Instructions .ROUTE .COMPLEX RF: 0 esomeprazole magnesium [Nexium] 40 mg capsule,delayed release(DR/EC) 40 mg PO DAILY RF: 0 benzonatate [Tessalon Perles] 100 mg capsule 100 mg PO BID Qty: 14 RF: 0 vitamin B complex Tablet 1 tab PO DAILY RF: 0 levofloxacin 750 mg tablet 750 mg PO DAILY RF: 0 doxycycline hyclate 100 mg capsule 100 mg PO Q12H 10 Days Qty: 20 RF: 0 methylprednisolone [Medrol (Wilfredo)] 4 mg tablets,dose pack See Rx Instructions .ROUTE .COMPLEX Qty: 21 RF: 0 Discharge Orders: Discharge Order (Routine); Ordered 11/14/19 Ordered By: Leola Sequeira Referrals: Ashley Medrano FNP [Primary Care Provider] - Discharge Diet: Advance as tolerated Discharge Activity: Resume usual activity Patient Instructions: Chest Pain (ED) Discharge Date/Time: 11/14/19 16:10 Coding Level of Care Code ED Emergency Vehicle Operator for Irma Delgado
== END 2019-11-14 16:10 | disposition home or self-care (01) ==
PROVIDERS: Registered Nurse; Emergency Provider Emergency Medicine; PCP Nurse Practitioner Family
DX: R07.89 Other chest pain (principal); Z79.01 Long term (current) use of anticoagulants; I48.91 Unspecified atrial fibrillation; Z85.01 Personal history of malignant neoplasm of esophagus; I11.0 Hypertensive heart disease with heart failure; I50.9 Heart failure, unspecified; J44.9 Chronic obstructive pulmonary disease, unspecified; E11.9 Type 2 diabetes mellitus without complications; E78.5 Hyperlipidemia, unspecified; G31.83 Neurocognitive disorder with Lewy bodies; F02.80 Dementia in other diseases classified elsewhere, unspecified severity, without behavioral disturbance, psychotic disturbance, mood disturbance, and anxiety; Z87.891 Personal history of nicotine dependence
CPT/HCPCS: 12345; 71045; 80053; 84484; 85025; 99281; 99283

== ENCOUNTER 2019-11-15 14:38 | Emergency (ER) | payer MEDICARE, MEDICAID, SELFPAY ==
[2019-11-15 14:40] VITALS: BP 131/87; PULSE 73; RESP 18; TEMP 36.6; O2SAT 98; BMI 27.8
--- NOTE | 2019-11-15 14:53 | XRR_ITS ---
NOTE: Report was unsigned for reason: Order was edited. Original Signature date and time was: 11/15/19 @ 1539 PROCEDURE INFORMATION: Exam: XR Bilateral Hips with Pelvis when Performed Exam date and time: 11/15/2019 3:19 PM Age: 78 years old Clinical indication: Hip pain; Bilateral TECHNIQUE: Imaging protocol: XR bilateral hips with pelvis when performed. Views: 2 views. COMPARISON: CT abdomen pelvis w con* [id number] 10/14/2019 7:21 PM FINDINGS: Bones/joints: Unremarkable. No acute fracture. Soft tissues: Unremarkable. MTDD XR/XR hip BI 2V wo/w pel [id number] IMPRESSION: No acute findings.
--- NOTE | 2019-11-15 15:18 | W.ED.EXTPRO ---
HPI - Extremity Problem General: Chief complaint: Extremity Injury, Lower Stated complaint: CHEST PAIN Time Seen by Provider: 11/15/19 14:39 Source: patient Mode of arrival: ambulatory Limitations: no limitations History of Present Illness: MD Complaint: joint pain Onset (ago): year(s) Pain Consistency: intermittent Location: left, right and other (hip) Quality: aching Relieving factors: nothing Exacerbating factors: nothing Associated symptoms: Reports arthralgias; Deny chest pain, fever(s), myalgias, rash or short of breath Review of Systems General: Reports: 10 or more systems reviewed and unremarkable except in HPI and below Const: Denies: fever(s) Card: Denies: chest pain, palpitations, irregular heart rhythm, edema, swelling of feet/ankles, lightheadedness, syncope, pre-syncope or dyspnea on exertion Resp: Denies: dyspnea, productive cough, non-productive cough, wheezing, stridor or pain on inspiration GI: Denies: abdominal pain, nausea, vomiting, diarrhea or constipation : Denies: flank pain, difficulty urinating, dysuria, urinary frequency, urinary urgency, urinary hesitancy or urinary dribbling Musc: Reports: joint pain; Denies: neck pain, back pain, extremity pain or extremity swelling Skin/Breast: Denies: rash Psych: Denies: suicidal ideation or homicidal ideation FORMERLY [facility], 1928–1983 ED PFSH: Medical History Acute alteration in mental status Anemia Anticoagulation adequate with anticoagulant therapy ASHD (arteriosclerotic heart disease) Atrial fibrillation was taken off anticoagulation due to GI bleed, has IVC filter Piper's esophagus BPH (benign prostatic hyperplasia) Carcinoma of esophagus radiation esophagitis CHF (congestive heart failure) CHF (congestive heart failure), NYHA class I COPD (chronic obstructive pulmonary disease) COPD exacerbation CVA (cerebral vascular accident) Diabetes Diarrhea Dyslipidemia (high LDL; low HDL) Essential hypertension Gait disturbance Lewy body dementia with behavioral disturbance NATALI (obstructive sleep apnea) Pneumonia Post laminectomy syndrome Pulmonary emboli Surgical History [place] filter in place History of esophagogastroduodenoscopy (EGD) (07/24/19) resolution of Grade D esophagitis, no evidence of carcinoma Previous back surgery S/P angioplasty with stent S/P appendectomy S/P hernia repair S/P tonsillectomy 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 Aicha Roche HOSPITAL AIDES AND ASSISTANTS TEACHER shunt revision Family History Father CAD (coronary artery disease) Mother CAD (coronary artery disease) Hypertension Sister CAD (coronary artery disease) Diabetes Family/Other Stroke Denies family history of Anesthesia complication Bleeding disorder Social History Smoking and tobacco status: former smoker Quit status (tobacco): has quit using tobacco Alcohol intake: former Physical Exam Const: COMMON NORMALS: no acute distress, average body habitus, patient oriented x3, no limitations, healthy appearing, alert and well nourished HENMT: COMMON NORMALS: normocephalic, atraumatic, hearing grossly normal bilaterally, external ears normal, EAC's normal, TM's normal bilaterally, Normal external nose present, Normal nasal mucous membranes and turbinates present, moist oral mucous membranes, oropharynx normal, dentition normal and gingiva normal HEAD & SCALP: normocephalic and atraumatic NOSE: Normal external nose present and Normal nasal mucous membranes and turbinates present EXTERNAL EAR: Yes external ears normal EXTERNAL AUDITORY CANAL: EAC's normal TYMPANIC MEMBRANE: TM's normal bilaterally Eye: COMMON NORMALS: Equal, round and reactive pupils present, EOMs intact bilaterally, conjunctivae normal, no scleral icterus, no papilledema, normal visual hathaway by confrontation and fundi normal bilaterally CONJUNCTIVA: Yes conjunctivae normal PUPIL: Yes Equal, round and reactive pupils present DIRECT OPHTHALMOSCOPY: Yes no papilledema and Yes fundi normal bilaterally Neck/C-Spine: COMMON NORMALS: full ROM, no lymphadenopathy, supple, no meningeal signs, no JVD, Thyroid normal and No carotid bruits THYROID: Thyroid normal Chest: COMMONS NORMALS: normal inspection of the chest, normal palpation of entire chest wall, normal inspection of the breasts and normal palpation of the breasts Resp: COMMON NORMALS: normal respiratory effort, No retractions, No use of accessory muscles, clear to auscultation bilaterally and percussion normal AUSCULTATION: clear to auscultation bilaterally PERCUSSION: percussion normal Cardio: COMMON NORMALS: no JVD, regular rate and regular rhythm RATE: regular rate RHYTHM: regular rhythm GI: COMMON NORMALS: Normal to inspection, nondistended, normoactive bowel sounds present, Soft to palpation, non-tender, No hepatosplenomegaly present, no masses and no bruits PALPATION: Yes Soft to palpation and Yes No hepatosplenomegaly present : COMMON NORMALS: Yes no CVA tenderness, Yes normal external exam, Yes Testes normal, Yes scrotum normal, Yes no scrotal swelling and Yes No hernias present BLADDER/KIDNEY EXAM: Yes no CVA tenderness Back/Pelvis: COMMON NORMALS: no CVA tenderness, thoracic and lumbar spine normal to inspection, no thoracic nor lumbar tenderness, thoraco-lumbar ROM normal and straight leg raise negative bilaterally Extremity: RIGHT LOWER EXTREMITY: Yes hip joint LEFT LOWER EXTREMITY: Yes hip joint Neuro: COMMON NORMALS: patient oriented x3, CN's II-XII intact bilaterally, moves all extremities, no focal motor deficits, no sensory deficits noted and gait normal SENSORIUM/ORIENTATION: Yes alert MENINGEAL SIGNS: Yes no meningeal signs Psych: COMMON NORMALS: mental status grossly normal, Normal thought process present, cooperative, normal affect, speech normal, activity/motor behavior normal, denies hallucinations, denies homicidal ideation and denies suicidal ideation SPEECH: Yes normal speech THOUGHT PROCESS: Normal thought process present Skin: COMMON NORMALS: no rashes or lesions noted, no wounds, turgor normal, no jaundice, no petechiae and no mottling GENERAL SKIN EXAM: no rashes or lesions noted and turgor normal Course Vital Signs: Vital signs: Vital Signs Temperature 97.9 F 11/15/19 14:40 Pulse Rate 73 11/15/19 14:40 Respiratory Rate 18 11/15/19 14:40 Blood Pressure 131/87 11/15/19 14:40 Pulse Oximetry 98 11/15/19 14:40 MDM - Extremity (Nontraumatic) MDM Narrative: Medical decision making narrative: Pt is well appearing non toxic and in no aute distress. Pt c/o bilateral hip pain but denies trauma or injury. Pt is NVI bilaterally distally Pt has been here 6 times this month. Family states when he has a concern he wants to come to ER and they an't stop him. Pt presents stating just give me something for my pain and get me out of here. Pt is refusing to give urine states he just peed and wants to go home. I feel this is reasonable as patient does not have any urinary complaints and mentation is patients normal. xray does not reveal an fracture or dislocation. Pt ambulates without difficulty. Pt was given Verdi and did have clinical improvement. Return precautions advised and home care reviewed Discharge Plan Discharge Patient Disposition: Home Clinical Impression: Bilateral hip pain Condition: Stable Prescriptions: No Action tamsulosin [Flomax] 0.4 mg capsule 0.4 mg PO DAILY RF: 0 risperidone 0.5 mg tablet 0.5 mg PO BID RF: 0 melatonin 5 mg capsule 5 - 10 mg PO BEDTIME RF: 0 ascorbate calcium (vitamin C) 500 mg tablet 500 mg PO DAILY RF: 0 furosemide 40 mg tablet 40 mg PO BID Qty: 180 RF: 1 potassium chloride 20 mEq tablet extended release 20 meq PO DAILY 90 Days Qty: 90 RF: 1 Eliquis 5 mg tablet 5 mg PO BID 90 Days Qty: 180 RF: 1 spironolactone 25 mg Tablet 25 mg PO DAILY RF: 0 sucralfate [Carafate] 100 mg/mL suspension See Rx Instructions .ROUTE .COMPLEX RF: 0 esomeprazole magnesium [Nexium] 40 mg capsule,delayed release(DR/EC) 40 mg PO DAILY RF: 0 benzonatate [Tessalon Perles] 100 mg capsule 100 mg PO BID Qty: 14 RF: 0 vitamin B complex Tablet 1 tab PO DAILY RF: 0 levofloxacin 750 mg tablet 750 mg PO DAILY RF: 0 doxycycline hyclate 100 mg capsule 100 mg PO Q12H 10 Days Qty: 20 RF: 0 methylprednisolone [Medrol (Wilfredo)] 4 mg tablets,dose pack See Rx Instructions .ROUTE .COMPLEX Qty: 21 RF: 0 Discharge Orders: Discharge Order (Routine); Ordered 11/15/19 Ordered By: sIabella John Referrals: Ashley Medrano, B OPERATOR [Primary Care Provider] - Discharge Diet: Advance as tolerated Discharge Activity: Resume usual activity Activity Restrictions/Additional Instructions: Please return to ER with any worsening of pain, inability to walk, fever or any other concerning symptoms Coding Level of Care Code ED Cat Driver for Irma Fwd Exam Comprehensive
[2019-11-15] MEDS: HYDROcodone-acetaminophen 5-325 mg Tablet 1 TAB PO (15:21)
[2019-11-15 15:54] VITALS: PULSE 72; RESP 18; O2SAT 98
[2019-11-15 16:17] VITALS: PULSE 72; RESP 18; O2SAT 98
== END 2019-11-15 16:18 | disposition home or self-care (01) ==
PROVIDERS: Emergency Provider Registered Nurse; PCP Nurse Practitioner Family
DX: M25.551 Pain in right hip (principal); M25.552 Pain in left hip; Z79.01 Long term (current) use of anticoagulants; I48.91 Unspecified atrial fibrillation; Z85.01 Personal history of malignant neoplasm of esophagus; I11.0 Hypertensive heart disease with heart failure; I50.9 Heart failure, unspecified; J44.9 Chronic obstructive pulmonary disease, unspecified; Z86.73 Personal history of transient ischemic attack (TIA), and cerebral infarction without residual deficits; E11.9 Type 2 diabetes mellitus without complications; E78.5 Hyperlipidemia, unspecified; G31.83 Neurocognitive disorder with Lewy bodies; F02.80 Dementia in other diseases classified elsewhere, unspecified severity, without behavioral disturbance, psychotic disturbance, mood disturbance, and anxiety; Z87.891 Personal history of nicotine dependence
CPT/HCPCS: 12345; 73521; 73523; 99281; 99283

== ENCOUNTER 2019-11-16 16:17 | Emergency (ER) | payer MEDICARE, MEDICAID, SELFPAY ==
--- NOTE | 2019-11-16 16:26 | ECG_ITS ---
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 Measurements Intervals [place] Rate: 79 P: [place]: -1 QRS: -23 QRSD: 101 T: 77 QT: 376 QTc: 432 Interpretive Statements ATRIAL FIBRILLATION BORDERLINE LEFT AXIS DEVIATION [QRS AXIS < -20] LOW QRS VOLTAGE IN PRECORDIAL LEADS [QRS DEFLECTION < 1.0 mV IN CHEST LEADS] POSSIBLE RIGHT VENTRICULAR CONDUCTION DELAY [RSR (QR) IN V1/V2] NONSPECIFIC ST & T-WAVE ABNORMALITY ABNORMAL RHYTHM ECG Compared to ECG 11/13/2019 17:27:08 No significant changes Electronically Signed On 11-16-2019 20:11:25 CDT by Sunil Diane M.D. [id number]
--- NOTE | 2019-11-16 16:26 | XRR_ITS ---
PROCEDURE INFORMATION: Exam: XR Chest, 1 View Exam date and time: 11/16/2019 4:27 PM Age: 78 years old Clinical indication: Chest pain; Type not specified; Additional info: Cp TECHNIQUE: Imaging protocol: XR of the chest Views: 1 view. COMPARISON: CR (CHEST, ) 11/09/2019 6:14 PM FINDINGS: Tubes, catheters and devices: Partially visualized ACTIVE DIRECTORY SYSTEMS ADMINISTRATOR shunt tube. Lungs: Unremarkable. No consolidation. Pleural space: Unremarkable. No pleural effusion. No pneumothorax. Heart/Mediastinum: Unremarkable. No cardiomegaly. Bones/joints: There are degenerative changes in the thoracic spine and across the acromioclavicular joints. Soft tissues: Heart size not optimally evaluated with a single AP view of the chest. XR/XR chest 1V portable [id number] IMPRESSION: No evidence for acute cardiopulmonary disease.
[2019-11-16 16:38] LABS: Basophils % 0.6 %; Eosinophils # 0.4 10^3/uL (0.0-0.8); Eosinophils % 8.2 %; Hematocrit 40.2 % (42.0-52.0); Hemoglobin 12.1 g/dL (11.7-16.6); Lymphocytes # 1.3 10^3/uL (0.8-4.8); Lymphocytes % 23.3 %; Mean Corpuscular HGB Conc 30.1 g/dL (30.0-36.0); Mean Corpuscular Hemoglobin 25.2 pg (28.0-34.0); Mean Corpuscular Volume 83.6 fL (80-94); Mean Platelet Volume 10.7 fL (7.4-10.4); Monocytes # 0.6 10^3/uL (0.2-0.9); Monocytes % 11.4 %; Neutrophils # 3.04 10^3/uL (1.8-7.7); Neutrophils % 56.5 %; Nucleated Red Blood Cells % 0 %; Platelet Count 253 10^3/cmm (130-400); Red Blood Count 4.81 10^6/uL (4.1-5.3); White Blood Count 5.4 10^3/uL (4.0-10.0)
[2019-11-16 16:51] LABS: Alanine Aminotransferase 17 U/L (0-41); Albumin Level 4.7 g/dL (3.5-5.2); Alkaline Phosphatase 112 IU/L (40-130); Anion Gap 19.8 (5-19); Aspartate Amino Transferase 19 U/L (0-40); Blood Urea Nitrogen 10 mg/dL (8-23); Calcium 9.6 mg/dL (8.5-10.5); Carbon Dioxide 24 mmol/L (22-29); Chloride 102 mmol/L (98-107); Globulin 2.4 g/dL (1.3-4.6); Glucose 104 mg/dL (65-115); Osmolality Calculated 293 mOsm/kg (285-295); Potassium 3.8 mmol/L (3.5-5.1); Sodium 142 mmol/L (136-145); Total Bilirubin 0.3 mg/dL (0.15-1.2); Total Protein 7.1 g/dL (6.6-8.7)
[2019-11-16 16:55] LABS: Troponin(5th) Baseline 33 ng/L (0-15)
[2019-11-16 17:02] VITALS: BP 162/82; PULSE 83; RESP 14; TEMP 36.9; O2SAT 97; BMI 29.2
--- NOTE | 2019-11-16 18:26 | ECG_ITS ---
[facility] Test Date: 2019-11-16 Pat Name: Willie Ram Department: Room: Gender: Male Manager Of Development: : 1940 Requested By: Leola Sequeira Order Number: [id number] Kevin MD: Sunil Diane M.D. Measurements Intervals [place] Rate: 77 P: [place]: -1 QRS: -29 QRSD: 85 T: 95 QT: 379 QTc: 429 Interpretive Statements ATRIAL FIBRILLATION BORDERLINE LEFT AXIS DEVIATION [QRS AXIS < -20] LOW QRS VOLTAGE IN PRECORDIAL LEADS [QRS DEFLECTION < 1.0 mV IN CHEST LEADS] POSSIBLE RIGHT VENTRICULAR CONDUCTION DELAY [RSR (QR) IN V1/V2] NONSPECIFIC ST & T-WAVE ABNORMALITY Compared to ECG 11/16/2019 16:54:29 No significant changes javascript:[email or web address]('study_confirm'); Electronically Signed On 11-17-2019 17:43:56 CDT by Sunil Diane M.D. [id number]
[2019-11-16 18:30] LABS: Acetaminophen < 5.0 ug/mL (10-30); Alcohol Level < 10 mg/dL (0-10); Salicylate < 0.3 mg/dL (3-10)
--- NOTE | 2019-11-16 18:36 | W.ED.CHESTPA ---
HPI - Chest Pain General: Chief Complaint: Chest Pain Stated Complaint: CHEST PAIN Time Seen by Provider: 11/16/19 17:58 History of Present Illness: HPI narrative: 78-year-old male, well-known to the ER. He presents again with chest pain. He was here couple days ago with chest pain as well. He has left-sided pain. No shortness of breath or other symptoms. States he has not been coughing. No fever. He presents this time actually with 2 affidavits written by his daughter and his . Evidently he has a history of dementia, and has become increasingly agitated at home. He wants his and his side at all times, and gets very agitated with her and threatens her if she is not there. When he does not get what he is asking for, he wants to call an ambulance and come to the emergency department. Evidently if it was not for their dog, he would have attacked his earlier today. He has been calm with us. complaint: chest pain Onset (ago): hour(s) Prior episodes: Yes Onset: during rest Pain location: left chest Pain radiation: none Quality: tightness and sharp Relieving factors: nothing Exacerbating factors: nothing Associated symptoms: Reports leg edema; Deny dyspnea, fever(s), nausea, palpitations or vomiting Review of Systems Const: Denies: fever(s) Eyes: Denies: change in vision ENMT: Denies: swelling of lips/tongue, dental pain, epistaxis or sinus pain Card: Reports: chest pain and edema; Denies: palpitations or irregular heart rhythm Resp: Denies: dyspnea GI: Denies: nausea or vomiting : Denies: difficulty urinating, dysuria, urinary frequency, urinary urgency or hematuria Musc: Denies: neck pain, back pain or joint warmth Skin/Breast: Denies: rash, pruritus or erythema Neuro: Denies: headache(s), dizziness or vertigo Psych: Reports: depression, mood swings, irritability and memory loss; Denies: anxiety, visual hallucinations or auditory hallucinations [facility] ED PFSH: Medical History (Updated 11/17/19 @ 00:01 by ) Acute alteration in mental status Anemia Anticoagulation adequate with anticoagulant therapy ASHD (arteriosclerotic heart disease) Atrial fibrillation was taken off anticoagulation due to GI bleed, has IVC filter Piper's esophagus BPH (benign prostatic hyperplasia) Carcinoma of esophagus radiation esophagitis CHF (congestive heart failure) CHF (congestive heart failure), NYHA class I COPD (chronic obstructive pulmonary disease) COPD exacerbation CVA (cerebral vascular accident) Diabetes Diarrhea Dyslipidemia (high LDL; low HDL) Essential hypertension Gait disturbance Lewy body dementia with behavioral disturbance NATALI (obstructive sleep apnea) Pneumonia Post laminectomy syndrome Pulmonary emboli Surgical History [place] filter in place History of esophagogastroduodenoscopy (EGD) (07/24/19) resolution of Grade D esophagitis, no evidence of carcinoma Previous back surgery S/P angioplasty with stent S/P appendectomy S/P hernia repair S/P tonsillectomy 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 Aicha Roche PAVING MACHINE OPERATOR shunt revision Family History Father CAD (coronary artery disease) Mother CAD (coronary artery disease) Hypertension Sister CAD (coronary artery disease) Diabetes Family/Other Stroke Denies family history of Anesthesia complication Bleeding disorder Social History Smoking and tobacco status: former smoker Quit status (tobacco): has quit using tobacco Alcohol intake: former Physical Exam Const: GENERAL APPEARANCE: well developed ORIENTATION/CONSCIOUSNESS: Yes oriented to person, Yes oriented to place and Yes oriented to time HENMT: COMMON NORMALS: normocephalic, external ears normal and Normal external nose present HEAD & SCALP: normocephalic FACE & SINUS: normal facial exam NOSE: Normal external nose present and No nasal discharge present EXTERNAL EAR: Yes external ears normal TEETH & GINGIVA: no abnormal tooth and associated gingiva THROAT: posterior oropharynx normal; no peritonsillar mass Eye: COMMON NORMALS: Equal, round and reactive pupils present, EOMs intact bilaterally and conjunctivae normal EYELID: eyelids normal CONJUNCTIVA: Yes conjunctivae normal PUPIL: Yes Equal, round and reactive pupils present Neck/C-Spine: GENERAL: No tracheal deviation Chest: COMMONS NORMALS: normal inspection of the chest CHEST: No tenderness Resp: COMMON NORMALS: clear to auscultation bilaterally EFFORT & INSPECTION: No tachypneic, No respiratory distress, No retractions, No uses accessory muscles and No tracheal deviation AUSCULTATION: clear to auscultation bilaterally, no rhonchi, no wheezes and lung sounds not diminished Cardio: COMMON NORMALS: regular rate and regular rhythm RATE: regular rate RHYTHM: regular rhythm HEART SOUNDS: no murmurs PERIPHERAL PULSES: radial pulses present GI: INSPECTION: No abdominal distension AUSCULTATION: No Hyperactive bowel sounds present and No Hypoactive bowel sounds present PALPATION: No Guarding due to palpation present (GI) and No Rigid due to palpation PERCUSSION: no dullness to percussion and no tympanic to percussion Neuro: SENSORIUM/ORIENTATION: Yes oriented to person, Yes oriented to place and Yes oriented to time Psych: COMMON NORMALS: speech normal ATTITUDE: Yes calm ACTIVITY/MOTOR BEHAVIOR: Yes appropriate eye contact SPEECH: Yes normal speech MOOD & AFFECT: Yes depressed mood THOUGHT PROCESS: confused THOUGHT CONTENT: No Suicidality present, No Homicidality present and Yes delusions Skin: COMMON NORMALS: no rashes or lesions noted GENERAL SKIN EXAM: no rashes or lesions noted Course Vital Signs: Vital signs: Vital Signs Temperature 98.5 F 11/16/19 17:02 Pulse Rate 83 11/16/19 17:02 Respiratory Rate 14 11/16/19 17:02 Blood Pressure 162/82 11/16/19 17:02 Pulse Oximetry 97 11/16/19 17:02 MDM - Chest Pain MDM Narrative: Medical decision making narrative: The 8-year-old gentleman who comes frequently to the ER complaining of chest pain. There are no acute ST changes on his EKG. His troponin is 33 and remained so at 2 hours, which is basically the patient's baseline. He complains of no pain currently. His and daughter have written affidavits, stating the above. I do believe the patient would benefit from a geriatric psychiatry evaluation. I am worried that he is becoming more hostile towards his at this point. We will see if we can find him a bed. Willie is medically stable at this point. Lab Data: Labs: Lab Results 11/16/19 11/16/19 11/16/19 Range/Units 16:19 16:19 16:19 WBC 5.4 (4.0-10.0) 10^3/ uL RBC 4.81 (4.1-5.3) 10^6/u L Hgb 12.1 (11.7-16.6) g/dL Hct 40.2 L (42.0-52.0) % MCV 83.6 (80-94) fL MCH 25.2 L (28.0-34.0) pg MCHC 30.1 (30.0-36.0) g/dL RDW 16.0 H (12.1-15.1) % Plt Count 253 (130-400) 10^3/c mm MPV 10.7 H (7.4-10.4) fL Neut % (Auto) 56.5 % Lymph % (Auto) 23.3 % [place] % (Auto) 11.4 % Eos % (Auto) 8.2 % Baso % (Auto) 0.6 % Neut # (Auto) 3.04 (1.8-7.7) 10^3/u L Lymph # (Auto) 1.3 (0.8-4.8) 10^3/u L [place] # (Auto) 0.6 (0.2-0.9) 10^3/u L Eos # (Auto) 0.4 (0.0-0.8) 10^3/u L Baso # (Auto) 0.0 (0.0-0.1) 10^3/u L Nucleated RBC % (a uto) 0 % Nucleated RBCs # 0.0 /100WBC Sodium 142 (136-145) mmol/L Potassium 3.8 (3.5-5.1) mmol/L Chloride 102 (98-107) mmol/L Carbon Dioxide 24 (22-29) mmol/L Anion Gap 19.8 H (5-19) BUN 10 (8-23) mg/dL Creatinine 1.0 (0.7-1.2) mg/dL GFR Calculation Not Reportable Glucose 104 (65-115) mg/dL Calculated Osmolal ity 293 (285-295) mOsm/k g Calcium 9.6 (8.5-10.5) mg/dL Total Bilirubin 0.3 (0.15-1.2) mg/dL AST 19 (0-40) U/L ALT 17 (0-41) U/L Alkaline Phosphata se 112 (40-130) IU/L Troponin T Gen 5 n g/L (0-15) ng/L Troponin T Baselin e 33 H (0-15) ng/L Total Protein 7.1 (6.6-8.7) g/dL Albumin 4.7 (3.5-5.2) g/dL Globulin 2.4 (1.3-4.6) g/dL TSH (0.27-4.20) uIU/ mL Free T4 (0.82-1.77) ng/d L Free T3 (2.0-4.4) PG/ML Salicylates (3-10) mg/dL Urine Opiates Scre en (Negative) ng/mL Acetaminophen (10-30) ug/mL Ur Barbiturates Sc reen (Negative) ng/mL Ur Phencyclidine S crn (Negative) ng/mL Ur Amphetamines Sc reen (Negative) ng/mL U Benzodiazepines Scrn (Negative) ng/mL Urine Cocaine Scre en (Negative) ng/mL U Marijuana (THC) Screen (Negative) ng/mL Ethyl Alcohol (0-10) mg/dL SARS-CoV-2 Ag (Rap id) (Negative) 11/16/19 11/16/19 11/16/19 Range/Units 16:19 16:19 18:35 WBC (4.0-10.0) 10^3/ uL RBC (4.1-5.3) 10^6/u L Hgb (11.7-16.6) g/dL Hct (42.0-52.0) % MCV (80-94) fL MCH (28.0-34.0) pg MCHC (30.0-36.0) g/dL RDW (12.1-15.1) % Plt Count (130-400) 10^3/c mm MPV (7.4-10.4) fL Neut % (Auto) % Lymph % (Auto) % [place] % (Auto) % Eos % (Auto) % Baso % (Auto) % Neut # (Auto) (1.8-7.7) 10^3/u L Lymph # (Auto) (0.8-4.8) 10^3/u L [place] # (Auto) (0.2-0.9) 10^3/u L Eos # (Auto) (0.0-0.8) 10^3/u L Baso # (Auto) (0.0-0.1) 10^3/u L Nucleated RBC % (a uto) % Nucleated RBCs # /100WBC Sodium (136-145) mmol/L Potassium (3.5-5.1) mmol/L Chloride (98-107) mmol/L Carbon Dioxide (22-29) mmol/L Anion Gap (5-19) BUN (8-23) mg/dL Creatinine (0.7-1.2) mg/dL GFR Calculation Glucose (65-115) mg/dL Calculated Osmolal ity (285-295) mOsm/k g Calcium (8.5-10.5) mg/dL Total Bilirubin (0.15-1.2) mg/dL AST (0-40) U/L ALT (0-41) U/L Alkaline Phosphata se (40-130) IU/L Troponin T Gen 5 n g/L (0-15) ng/L Troponin T Baselin e (0-15) ng/L Total Protein (6.6-8.7) g/dL Albumin (3.5-5.2) g/dL Globulin (1.3-4.6) g/dL TSH 1.80 (0.27-4.20) uIU/ mL Free T4 (0.82-1.77) ng/d L Free T3 (2.0-4.4) PG/ML Salicylates < 0.3 L (3-10) mg/dL Urine Opiates Scre en (Negative) ng/mL Acetaminophen < 5.0 L (10-30) ug/mL Ur Barbiturates Sc reen (Negative) ng/mL Ur Phencyclidine S crn (Negative) ng/mL Ur Amphetamines Sc reen (Negative) ng/mL U Benzodiazepines Scrn (Negative) ng/mL Urine Cocaine Scre en (Negative) ng/mL U Marijuana (THC) Screen (Negative) ng/mL Ethyl Alcohol < 10 (0-10) mg/dL SARS-CoV-2 Ag (Rap id) Negative (Negative) 11/16/19 11/16/19 11/16/19 Range/Units 20:07 20:07 20:25 WBC (4.0-10.0) 10^3/ uL RBC (4.1-5.3) 10^6/u L Hgb (11.7-16.6) g/dL Hct (42.0-52.0) % MCV (80-94) fL MCH (28.0-34.0) pg MCHC (30.0-36.0) g/dL RDW (12.1-15.1) % Plt Count (130-400) 10^3/c mm MPV (7.4-10.4) fL Neut % (Auto) % Lymph % (Auto) % [place] % (Auto) % Eos % (Auto) % Baso % (Auto) % Neut # (Auto) (1.8-7.7) 10^3/u L Lymph # (Auto) (0.8-4.8) 10^3/u L [place] # (Auto) (0.2-0.9) 10^3/u L Eos # (Auto) (0.0-0.8) 10^3/u L Baso # (Auto) (0.0-0.1) 10^3/u L Nucleated RBC % (a uto) % Nucleated RBCs # /100WBC Sodium (136-145) mmol/L Potassium (3.5-5.1) mmol/L Chloride (98-107) mmol/L Carbon Dioxide (22-29) mmol/L Anion Gap (5-19) BUN (8-23) mg/dL Creatinine (0.7-1.2) mg/dL GFR Calculation Glucose (65-115) mg/dL Calculated Osmolal ity (285-295) mOsm/k g Calcium (8.5-10.5) mg/dL Total Bilirubin (0.15-1.2) mg/dL AST (0-40) U/L ALT (0-41) U/L Alkaline Phosphata se (40-130) IU/L Troponin T Gen 5 n g/L 33 H (0-15) ng/L Troponin T Baselin e (0-15) ng/L Total Protein (6.6-8.7) g/dL Albumin (3.5-5.2) g/dL Globulin (1.3-4.6) g/dL TSH (0.27-4.20) uIU/ mL Free T4 1.33 (0.82-1.77) ng/d L Free T3 3.4 (2.0-4.4) PG/ML Salicylates (3-10) mg/dL Urine Opiates Scre en Positive H (Negative) ng/mL Acetaminophen (10-30) ug/mL Ur Barbiturates Sc reen Negative (Negative) ng/mL Ur Phencyclidine S crn Negative (Negative) ng/mL Ur Amphetamines Sc reen Negative (Negative) ng/mL U Benzodiazepines Scrn Negative (Negative) ng/mL Urine Cocaine Scre en Negative (Negative) ng/mL U Marijuana (THC) Screen Negative (Negative) ng/mL Ethyl Alcohol (0-10) mg/dL SARS-CoV-2 Ag (Rap id) (Negative) Discharge Plan Discharge Condition: Good Prescriptions: No Action tamsulosin [Flomax] 0.4 mg capsule 0.4 mg PO DAILY RF: 0 risperidone 0.5 mg tablet 0.5 mg PO BID RF: 0 melatonin 5 mg capsule 5 - 10 mg PO BEDTIME RF: 0 ascorbate calcium (vitamin C) 500 mg tablet 500 mg PO DAILY RF: 0 furosemide 40 mg tablet 40 mg PO BID Qty: 180 RF: 1 potassium chloride 20 mEq tablet extended release 20 meq PO DAILY 90 Days Qty: 90 RF: 1 Eliquis 5 mg tablet 5 mg PO BID 90 Days Qty: 180 RF: 1 spironolactone 25 mg Tablet 25 mg PO DAILY RF: 0 sucralfate [Carafate] 100 mg/mL suspension See Rx Instructions .ROUTE .COMPLEX RF: 0 esomeprazole magnesium [Nexium] 40 mg capsule,delayed release(DR/EC) 40 mg PO DAILY RF: 0 benzonatate [Tessalon Perles] 100 mg capsule 100 mg PO BID Qty: 14 RF: 0 vitamin B complex Tablet 1 tab PO DAILY RF: 0 levofloxacin 750 mg tablet 750 mg PO DAILY RF: 0 doxycycline hyclate 100 mg capsule 100 mg PO Q12H 10 Days Qty: 20 RF: 0 methylprednisolone [Medrol (Wilfredo)] 4 mg tablets,dose pack See Rx Instructions .ROUTE .COMPLEX Qty: 21 RF: 0 Coding Level of Care Code ED Bricklayer'S Assistant for Samig Fwd Exam Comprehensive
[2019-11-16 19:25] LABS: SARS Covid-2 Antigen Negative (Negative)
[2019-11-16 20:30] LABS: Troponin T (5th) Once 33 ng/L (0-15)
[2019-11-16 20:40] LABS: Amphetamines Screen Urine Negative (Negative); Barbiturates Screen Urine Negative (Negative); Benzodiazepines Screen Urine Negative (Negative); Cocaine Screen Urine Negative (Negative); Opiate Screen Urine Positive (Negative); PCP Screen Urine Negative (Negative); THC Screen Urine Negative (Negative)
--- NOTE | 2019-11-16 22:26 | ECG_ITS ---
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 Measurements Intervals [place] Rate: 74 P: NE: -1 QRS: -20 QRSD: 98 T: 60 QT: 380 QTc: 423 Interpretive Statements ATRIAL FIBRILLATION LOW QRS VOLTAGE IN PRECORDIAL LEADS [QRS DEFLECTION < 1.0 mV IN CHEST LEADS] POSSIBLE RIGHT VENTRICULAR CONDUCTION DELAY [RSR (QR) IN V1/V2] NONSPECIFIC ST & T-WAVE ABNORMALITY ABNORMAL RHYTHM ECG Compared to ECG 11/13/2019 17:27:08 No significant changes Electronically Signed On 11-17-2019 17:37:15 CDT by Sunil Diane M.D. [id number]
[2019-11-17 00:16] LABS: Free T4 Free Thyroxine 1.33 ng/dL (0.82-1.77); T3 Free 3.4 PG/ML (2.0-4.4)
[2019-11-17 01:19] VITALS: BP 163/91; PULSE 86; RESP 18; O2SAT 100
[2019-11-17 02:56] LABS: Troponin T (5th) Once 36 ng/L (0-15)
--- NOTE | 2019-11-17 05:12 | PC.NURSE ---
Patient has been refused at multiple psych facilities based off of his baseline elevated troponin and his affidavit's from his family members are too weak and will be dismissed by a pets salesperson per the continuous pillowcase cutter at [facility]. While the patient has been in the ED, he has not required any medication, redirection, or de-escalation. Patient has not been aggressive towards staff at any point throughout his stay. Dr. Espinoza notified. Family will be contacted in the morning.
[2019-11-17 08:00] VITALS: PULSE 73; RESP 18; O2SAT 100
--- NOTE | 2019-11-17 09:28 | PC.NURSE ---
Patient rounding Psychiatrist at bedside consulting with patient and breakfast tray brought into room
--- NOTE | 2019-11-17 10:02 | PM.PSYCN ---
Providers/Reason for Consult Consulting Physican/Specialty*: Mehul Carver M.D./psychiatry Reason for Consult*: Disruptive behavior due to dementia. Requesting Physcian: Dr. Krishnamurthy Primary Care Provider: DENZEL Cazares Psych Consult HPI History of Present Illness Willie Ram is a 78 year old male with repeated visits to the emergency room. Affidavits from the patient's and daughter indicate, every day they are not right by his side or do not immediately do exactly what he wants them to do he becomes highly agitated and, but for their dog, would have assaulted them. He threatens to walk to town if they will not take him to the emergency room, to which he has repeatedly demanded that he be taken. He frequently has to be dressed and cleaned and is basically unable to care for himself. Dr. Krishnamurthy has diagnosed dementia and believes that he hasn't a treatable illness. He believes that transfer to a geropsych unit would offer no opportunity for improvement and that his dementia has progressed beyond the treatable stage. Nonetheless, his predecessor, Dr. Espinoza, has made a good daniele effort to find a suitable resource for assessment and treatment, all to no avail as indicated by Dr. Espinoza's note: We have called every geriatric facility in the [facility], and one across the [place] (in) [facility]. There are no beds available for this patient. He has been refused admission due to lack of evidence for the need for involuntary commitment given what was put in his affidavits by family. Full facilities were also worried about his troponin level which shows elevated, but has not further elevated, and is essentially at the patient's baseline. We may have to call the patient's family and see about other options. Meds Psychiatric Medication Details: I note with interest that he is on a very small dose (0.5 mg p.o. twice daily) of risperidone. It clearly has effectuated a great deal of improvement. PFSH NPU PFSH: Medical History (Updated 11/17/19 @ 10:50 by Cristobal Krishnamurthy DO) Acute alteration in mental status Anemia Anticoagulation adequate with anticoagulant therapy ASHD (arteriosclerotic heart disease) Atrial fibrillation was taken off anticoagulation due to GI bleed, has IVC filter Piper's esophagus BPH (benign prostatic hyperplasia) Carcinoma of esophagus radiation esophagitis CHF (congestive heart failure) CHF (congestive heart failure), NYHA class I COPD (chronic obstructive pulmonary disease) COPD exacerbation CVA (cerebral vascular accident) Diabetes Diarrhea Dyslipidemia (high LDL; low HDL) Essential hypertension Gait disturbance Lewy body dementia with behavioral disturbance NATALI (obstructive sleep apnea) Pneumonia Post laminectomy syndrome Pulmonary emboli Surgical History [place] filter in place History of esophagogastroduodenoscopy (EGD) (07/24/19) resolution of Grade D esophagitis, no evidence of carcinoma Previous back surgery S/P angioplasty with stent S/P appendectomy S/P hernia repair S/P tonsillectomy 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 Aicha Roche CONTROL VALVE MECHANIC shunt revision Family History Father CAD (coronary artery disease) Mother CAD (coronary artery disease) Hypertension Sister CAD (coronary artery disease) Diabetes Family/Other Stroke Denies family history of Anesthesia complication Bleeding disorder Social History Smoking and tobacco status: former smoker Quit status (tobacco): has quit using tobacco Alcohol intake: former Other Psychiatric History: Other Psychiatric History: Denied Mental Status Exam MSE Comments: This is a 78-year-old male who presents at his stated age. He is in [facility] 13, dressed in a hospital gown. Mood is anxious but affect is appropriate. Thought processes are limited and tend to be blocked. They are not, however, disorganized or racing. There is no evidence of psychosis such as but not limited to hallucinations, delusions or ideas of reference. Speech is of normal rate but a tad loud, without dysarthria, aprosody or pressure. Cognitive functions, particularly orientation and short-term memory are his Achilles heel. For example, he knows this is [facility] but cannot name the county seat nor the building in which he now finds himself. He cannot remember my name for 5 minutes. He cannot name the highway by which he comes to [place] from [facility] in the [place] area. 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 He cannot remember how old she is. More to the point, he cannot remember why he is here. Fortunately, he denies any suicidal or homicidal ideation, plan or intent. Vitals/I&O/Wt Last Vital Signs Temp 98.5 F 11/16/19 17:02 Pulse 73 11/17/19 08:00 Resp 18 11/17/19 08:00 BP 163/91 11/17/19 01:19 Pulse Ox 100 11/17/19 08:00 Weight last 48 hrs Weight 210 lb A&P Assessment and plan (1) Dementia: This patient has a disorder which is unlikely to yield with geropsych intervention. Beyond that, facilities are unavailable in this area of [place]. Status: Acute Involuntary Hold Information 96 Hour Hold: 96 Hour Involuntary Admission: No Comments: The patient's and daughter filed affidavits and petition for a 96-hour hold. However receiving hospitals have said the data does not conform to the criteria for involuntary hospitalization. I would agree. Accordingly I have taken the liberty of filing a rescission application on this patient. Attestations NPU Medical Necessity Statement*: I anticipate additional stay based on ability to find appropriate placement. He does not require involuntary hospitalization according to current statutes. Time Spent in Patient Care: Greater than 35 minutes (>than 50% of time spent in counselling and/or direct pt care on unit) (There is no counseling to be had but a lot of time spent on his case.). 2 hours. Coding Level of Care Code Acute Ground Equipment Mechanic for Irma Delgado Diagnoses Dementia F03.90
--- NOTE | 2019-11-17 10:22 | PC.NURSE ---
was called to be informed the patient will be sent home due to psychiatrist clearing him and rescinding his 96hr hold/affidavits as it is in his best interest
[2019-11-17 11:57] VITALS: BP 134/80; PULSE 78; RESP 18; O2SAT 100
== END 2019-11-17 12:00 | disposition home or self-care (01) ==
PROVIDERS: Emergency Medicine; Emergency Provider Family Medicine; PCP Nurse Practitioner Family
DX: R07.9 Chest pain, unspecified (principal); Z79.01 Long term (current) use of anticoagulants; I48.91 Unspecified atrial fibrillation; Z85.01 Personal history of malignant neoplasm of esophagus; I11.0 Hypertensive heart disease with heart failure; I50.9 Heart failure, unspecified; J44.9 Chronic obstructive pulmonary disease, unspecified; Z86.73 Personal history of transient ischemic attack (TIA), and cerebral infarction without residual deficits; E11.9 Type 2 diabetes mellitus without complications; E78.5 Hyperlipidemia, unspecified; G31.83 Neurocognitive disorder with Lewy bodies; F02.80 Dementia in other diseases classified elsewhere, unspecified severity, without behavioral disturbance, psychotic disturbance, mood disturbance, and anxiety; Z87.891 Personal history of nicotine dependence; Z79.899 Other long term (current) drug therapy
CPT/HCPCS: 12345; 36415; 71045; 80053; 80306; 80307; 84439; 84443; 84481; 84484; 85025; 87426; 93005; 99282; 99284

== ENCOUNTER 2019-11-22 18:23 | Emergency (ER) | payer MEDICARE, MEDICAID, SELFPAY ==
[2019-11-22 18:31] VITALS: BP 136/78; PULSE 78; RESP 18; TEMP 36.8; O2SAT 100; BMI 32.9
[2019-11-22 20:03] VITALS: BP 127/69; PULSE 65; RESP 20; TEMP 36.6; O2SAT 97
--- NOTE | 2019-11-22 20:06 | ECG_ITS ---
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 Measurements Intervals [place] Rate: 75 P: NM: -1 QRS: -19 QRSD: 104 T: 106 QT: 395 QTc: 442 Interpretive Statements ATRIAL FIBRILLATION LOW QRS VOLTAGE IN PRECORDIAL LEADS [QRS DEFLECTION < 1.0 mV IN CHEST LEADS] INCOMPLETE RIGHT BUNDLE BRANCH BLOCK NONSPECIFIC ST & T-WAVE ABNORMALITY Compared to ECG 11/16/2019 19:43:55 Incomplete right bundle-branch block now present T-wave abnormality still present Electronically Signed On 11-23-2019 18:20:29 CDT by Ashley Bethea M.D. [id number]
--- NOTE | 2019-11-22 20:10 | ED_ITS ---
HPI - Chest Pain General: Chief Complaint: Chest Pain Stated Complaint: possible heart attack Time Seen by Provider: 11/22/19 19:59 History of Present Illness: HPI narrative: This patient is a 78-year-old male who presents today complaining of problems with his heart. He does have history of heart disease but also has history of dementia and has been a very frequent visitor to the ER for complaints of chest pain. He is had multiple work-ups without any concerning findings recently. He actually had affidavits written on him within the last few weeks by his family members but did not meet any sort of criteria to be admitted to a general psych unit. It is felt that his behavior is related to dementia rather than psychiatric illness and perhaps he needs to be admitted to a [place] [facility] [place] facility. 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 MD complaint: chest pain (Patient says for years, this episode started this morning and has been constant all day) Pertinent past history: coronary artery disease and prior [facility] Timing of current episode: daily Prior episodes: Yes Pain location: substernal, left chest and right chest Pain radiation: neck Severity: similar to previous episodes Quality: heaviness Review of Systems General: Reports: ROS unobtainable due to mental status (Dementia) PFSH ED PFSH: Medical History Acute alteration in mental status Anemia Anticoagulation adequate with anticoagulant therapy ASHD (arteriosclerotic heart disease) Atrial fibrillation was taken off anticoagulation due to GI bleed, has IVC filter Piper's esophagus BPH (benign prostatic hyperplasia) Carcinoma of esophagus radiation esophagitis CHF (congestive heart failure) CHF (congestive heart failure), NYHA class I COPD (chronic obstructive pulmonary disease) COPD exacerbation CVA (cerebral vascular accident) Diabetes Diarrhea Dyslipidemia (high LDL; low HDL) Essential hypertension Gait disturbance Lewy body dementia with behavioral disturbance NATALI (obstructive sleep apnea) Pneumonia Post laminectomy syndrome Pulmonary emboli Surgical History Trip filter in place History of esophagogastroduodenoscopy (EGD) (07/24/19) resolution of Grade D esophagitis, no evidence of carcinoma Previous back surgery S/P angioplasty with stent S/P appendectomy S/P hernia repair S/P tonsillectomy 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 Aicha Roche TRACER BULLET SECTION SUPERVISOR shunt revision Family History Father CAD (coronary artery disease) Mother CAD (coronary artery disease) Hypertension Sister CAD (coronary artery disease) Diabetes Family/Other Stroke Denies family history of Anesthesia complication Bleeding disorder Social History Smoking and tobacco status: former smoker Quit status (tobacco): has quit using tobacco Alcohol intake: former Physical Exam Const: COMMON NORMALS: no acute distress, no limitations and alert GENERAL APPEARANCE: cooperative and comfortable HENMT: HEAD & SCALP: normal to inspection FACE & SINUS: normal facial exam Eye: GENERAL EYE: appearance normal, both eyes and all related structures Neck/C-Spine: COMMON NORMALS: supple, no meningeal signs and no JVD Chest: COMMONS NORMALS: normal inspection of the chest Resp: COMMON NORMALS: normal respiratory effort, No use of accessory muscles and clear to auscultation bilaterally AUSCULTATION: clear to auscultation bilaterally Cardio: COMMON NORMALS: no JVD, regular rate, regular rhythm and No murmurs present (Cardio) RATE: regular rate RHYTHM: regular rhythm GI: COMMON NORMALS: Normal to inspection, nondistended, normoactive bowel sounds present, Soft to palpation and non-tender INSPECTION: Yes normal to inspection AUSCULTATION: Yes normoactive bowel sounds PALPATION: Yes Soft to palpation Back/Pelvis: COMMON NORMALS: thoracic and lumbar spine normal to inspection Extremity: COMMON NORMALS: normal to inspection Neuro: COMMON NORMALS: moves all extremities, no focal motor deficits and no sensory deficits noted SENSORIUM/ORIENTATION: Yes alert MENINGEAL SIGNS: Yes no meningeal signs OTHER: Oriented to person and situation. Difficulty with recall. Repeatedly asking about the extra EKG leads on his chest. Psych: COMMON NORMALS: mental status grossly normal, cooperative and normal affect Skin: COMMON NORMALS: no rashes or lesions noted and turgor normal GENERAL SKIN EXAM: no rashes or lesions noted and turgor normal Course ED course: This patient has had multiple work-ups for chest pain and today I felt it was appropriate to only do an EKG and a troponin. His troponin is at his normal baseline. He will be discharged home. I hope that his underlying dementia can be addressed and perhaps a better solution can be found for his frequent visits to the ER. Vital Signs: Vital signs: Vital Signs Temperature 97.9 F 11/22/19 20:03 Pulse Rate 65 11/22/19 20:03 Respiratory Rate 20 H 11/22/19 20:03 Blood Pressure 127/69 11/22/19 20:03 Pulse Oximetry 97 11/22/19 20:03 MDM - Chest Pain Lab Data: Labs: Lab Results 11/22/19 Range/Units 20:10 Troponin T Baselin e 28 H (0-15) ng/L Discharge Plan Discharge Patient Disposition: Home Clinical Impression: Chest pain Qualifiers: Chest pain type: unspecified Qualified Code(s): R07.9 - Chest pain, unspecified Dementia Qualifiers: Dementia type: unspecified type Dementia behavioral disturbance: with behavioral disturbance Qualified Code(s): F03.91 - Unspecified dementia with behavioral disturbance Condition: Stable Prescriptions: No Action tamsulosin [Flomax] 0.4 mg capsule 0.4 mg PO DAILY RF: 0 risperidone 0.5 mg tablet 0.5 mg PO BID RF: 0 melatonin 5 mg capsule 5 - 10 mg PO BEDTIME RF: 0 ascorbate calcium (vitamin C) 500 mg tablet 500 mg PO DAILY RF: 0 furosemide 40 mg tablet 40 mg PO BID Qty: 180 RF: 1 potassium chloride 20 mEq tablet extended release 20 meq PO DAILY 90 Days Qty: 90 RF: 1 Eliquis 5 mg tablet 5 mg PO BID 90 Days Qty: 180 RF: 1 spironolactone 25 mg Tablet 25 mg PO DAILY RF: 0 sucralfate [Carafate] 100 mg/mL suspension See Rx Instructions .ROUTE .COMPLEX RF: 0 esomeprazole magnesium [Nexium] 40 mg capsule,delayed release(DR/EC) 40 mg PO DAILY RF: 0 benzonatate [Tessalon Perles] 100 mg capsule 100 mg PO BID Qty: 14 RF: 0 vitamin B complex Tablet 1 tab PO DAILY RF: 0 levofloxacin 750 mg tablet 750 mg PO DAILY RF: 0 methylprednisolone [Medrol (Wilfredo)] 4 mg tablets,dose pack See Rx Instructions .ROUTE .COMPLEX Qty: 21 RF: 0 Discharge Orders: Discharge Order (Routine); Ordered 11/22/19 Ordered By: Kitty Szymanski Referrals: Ashley Medrano FNP [Primary Care Provider] - Discharge Diet: Usual diet Discharge Activity: Resume usual activity Patient Instructions: Chest Pain (ED) Activity Restrictions/Additional Instructions: Follow-up with your primary care doctor for further care. Coding Level of Care Code ED Button Spindler for Irma Fwd Exam Comprehensive
[2019-11-22 20:57] LABS: Troponin(5th) Baseline 28 ng/L (0-15)
[2019-11-22 22:33] VITALS: BP 126/64; PULSE 84; RESP 20; TEMP 36.5; O2SAT 94
== END 2019-11-22 22:35 | disposition home or self-care (01) ==
PROVIDERS: Emergency Provider Emergency Medicine; PCP Nurse Practitioner Family
DX: R07.9 Chest pain, unspecified (principal); F03.91 Unspecified dementia, unspecified severity, with behavioral disturbance; Z79.01 Long term (current) use of anticoagulants; Z87.891 Personal history of nicotine dependence; I48.91 Unspecified atrial fibrillation; I11.0 Hypertensive heart disease with heart failure; I50.9 Heart failure, unspecified; J44.9 Chronic obstructive pulmonary disease, unspecified; Z86.73 Personal history of transient ischemic attack (TIA), and cerebral infarction without residual deficits; E11.9 Type 2 diabetes mellitus without complications; E78.5 Hyperlipidemia, unspecified; G31.83 Neurocognitive disorder with Lewy bodies; F02.80 Dementia in other diseases classified elsewhere, unspecified severity, without behavioral disturbance, psychotic disturbance, mood disturbance, and anxiety
CPT/HCPCS: 12345; 36415; 84484; 93005; 99282; 99283

== ENCOUNTER 2019-11-27 19:02 | Emergency (ER) | payer MEDICARE, MEDICAID, SELFPAY ==
[2019-11-27 19:05] VITALS: BP 146/71; PULSE 64; RESP 16; TEMP 36.7; O2SAT 100; BMI 34.8
--- NOTE | 2019-11-27 19:06 | ECG_ITS ---
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 Measurements Intervals [place] Rate: 70 P: ID: -1 QRS: -20 QRSD: 87 T: 92 QT: 384 QTc: 416 Interpretive Statements ATRIAL FIBRILLATION LOW QRS VOLTAGE IN PRECORDIAL LEADS [QRS DEFLECTION < 1.0 mV IN CHEST LEADS] POSSIBLE RIGHT VENTRICULAR CONDUCTION DELAY [RSR (QR) IN V1/V2] NONSPECIFIC ST & T-WAVE ABNORMALITY Compared to ECG 11/22/2019 18:23:14 Incomplete right bundle-branch block no longer present T-wave abnormality still present Electronically Signed On 11-27-2019 20:22:28 CDT by Sunil Diane M.D. [id number]
--- NOTE | 2019-11-27 19:06 | XR_ITS ---
WS: [id number] Portable AP upright chest, 11/27/2019 Clinical Data: Chest pain Comparison: Portable chest, 11/16/2019. Findings: No nodules, masses or effusions are seen. The heart is enlarged. The pulmonary vascularity is not increased. No pneumonia or pneumothorax is seen. The aortic arch and descending aorta are tort uous. There is a shunt tube overlying the left side of the chest. XR/XR chest 1V portable [id number] Impression: Cardiomegaly and atherosclerosis.
--- NOTE | 2019-11-27 19:15 | ED_ITS ---
HPI - SOB/Dyspnea General: Chief Complaint: Shortness of Breath/Dyspnea Stated Complaint: anxiety / chest pain Time Seen by Provider: 11/27/19 19:03 Source: patient and EMS Mode of arrival: EMS Limitations: no limitations History of Present Illness: HPI Narrative: Mr. Ram is a nice 78-year-old male well-known to me from previous visits. Comes in complaining of chest pain. He describes it as a vague discomfort in his chest. Telemetry been present for approximate the past hour or so. He has a dry cough as well he is felt flushed but not measured a temperature. There is no change to his phlegm production. Patient states that does not feel like his heart but because of the outbreak of COVID-19 here he wanted to get this checked out. Associated symptoms: Reports chest pain; Deny abdominal pain, chest congestion, diaphoresis, dizziness, extremity pain, fever(s), hemoptysis, lightheadedness, nausea, orthopnea, palpitations, syncope or vomiting Review of Systems Const: Denies: fever(s), chills, body aches, fatigue, malaise or diaphoresis Eyes: Denies: change in vision, blurry vision, photophobia, eye discomfort, eye discharge, eye redness or yellow eyes ENMT: Denies: throat pain, odynophagia, hoarseness, swelling of lips/tongue, ear or mastoid pain, ear discharge, change in hearing or nasal discharge Card: Reports: chest pain; Denies: palpitations, irregular heart rhythm, edema, lightheadedness, syncope, pre-syncope, dyspnea on exertion or orthopnea Resp: Reports: dyspnea; Denies: productive cough, non-productive cough, wheezing, hemoptysis or chest congestion GI: Denies: abdominal pain, nausea, vomiting, hematemesis, coffee ground emesis, heartburn, diarrhea, constipation, GI cramping, hematochezia or melena : Denies: flank pain, dysuria, urinary frequency, urinary urgency or he maturia Musc: Denies: neck pain, back pain, extremity pain, extremity swelling, joint pain, joint swelling, joint redness, joint warmth or joint stiffness Skin/Breast: Denies: rash, pruritus, erythema, skin pain or skin tenderness Neuro: Denies: headache(s), numbness in extremities, weakness in extremities, sensory changes, lack of coordination, difficulty walking, dizziness, vertigo, confusion, Slurred speech present or seizure-like activity Grant/Lymph: Denies: easy bruising, easy bleeding, petechiae, purpura or enlarged lymph nodes All/Imm: Denies: urticaria, throat swelling, tongue swelling, facial swelling or acute wheezing PFSH ED PFSH: Medical History Acute alteration in mental status Anemia Anticoagulation adequate with anticoagulant therapy ASHD (arteriosclerotic heart disease) Atrial fibrillation was taken off anticoagulation due to GI bleed, has IVC filter Piper's esophagus BPH (benign prostatic hyperplasia) Carcinoma of esophagus radiation esophagitis CHF (congestive heart failure) CHF (congestive heart failure), NYHA class I COPD (chronic obstructive pulmonary disease) COPD exacerbation CVA (cerebral vascular accident) Diabetes Diarrhea Dyslipidemia (high LDL; low HDL) Essential hypertension Gait disturbance Lewy body dementia with behavioral disturbance NATALI (obstructive sleep apnea) Pneumonia Post laminectomy syndrome Pulmonary emboli Surgical History Trip filter in place History of esophagogastroduodenoscopy (EGD) (07/24/19) resolution of Grade D esophagitis, no evidence of carcinoma Previous back surgery S/P angioplasty with stent S/P appendectomy S/P hernia repair S/P tonsillectomy 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 Aicha Roche ASE MASTER MECHANIC shunt revision Family History Father CAD (coronary artery disease) Mother CAD (coronary artery disease) Hypertension Sister CAD (coronary artery disease) Diabetes Family/Other Stroke Denies family history of Anesthesia complication Bleeding disorder Social History Smoking and tobacco status: former smoker Quit status (tobacco): has quit using tobacco Alcohol intake: former Physical Exam Const: COMMON NORMALS: no acute distress, patient oriented x3, no limitations and alert GENERAL APPEARANCE: cooperative HENMT: COMMON NORMALS: normocephalic, atraumatic, external ears normal, EAC's normal and Normal external nose present HEAD & SCALP: normal to inspection, normocephalic and atraumatic FACE & SINUS: normal facial exam and face symmetric NOSE: Normal external nose present and Normal nares present EXTERNAL EAR: Yes external ears normal EXTERNAL AUDITORY CANAL: EAC's normal MOUTH: Normal oral and palatal mucosa present, lip normal and tongue normal Eye: COMMON NORMALS: Equal, round and reactive pupils present and conjunctivae normal GENERAL EYE: appearance normal, both eyes and all related structures ALIGNMENT: Yes alignment normal PERIORBITAL: periorbital findings normal EYELID: eyelids normal CONJUNCTIVA: Yes conjunctivae normal SCLERA: sclerae normal PUPIL: Yes Equal, round and reactive pupils present Neck/C-Spine: COMMON NORMALS: full ROM, no lymphadenopathy, supple, no meningeal signs and no JVD GENERAL: Yes normal visual inspection and Yes trachea midline Chest: COMMONS NORMALS: normal inspection of the chest and normal palpation of entire chest wall Resp: COMMON NORMALS: normal respiratory effort, No retractions, No use of accessory muscles and clear to auscultation bilaterally EFFORT & INSPECTION: Yes able to speak in complete sentences and Yes symmetric chest movement AUSCULTATION: clear to auscultation bilaterally, no crackles, no rales, no rhonchi and no wheezes Cardio: COMMON NORMALS: no JVD, regular rate, regular rhythm, S1 normal heart sound present and S2 normal heart sound present RATE: regular rate RHYTHM: regular rhythm HEART SOUNDS: S1 normal heart sound present, S2 normal heart sound present, no click, no gallops, no murmurs and no rubs GI: COMMON NORMALS: Soft to palpation and No hepatosplenomegaly present PALPATION: Yes Soft to palpation, No Tenderness to palpation present (GI), No Guarding due to palpation present (GI), No Rigid due to palpation, Yes No hepatosplenomegaly present, No Hernia present, No Palpable mass present and No Pulsatile mass present : COMMON NORMALS: Yes no CVA tenderness BLADDER/KIDNEY EXAM: Yes no CVA tenderness Back/Pelvis: COMMON NORMALS: no CVA tenderness, thoracic and lumbar spine normal to inspection, no thoracic nor lumbar tenderness and thoraco-lumbar ROM normal Extremity: COMMON NORMALS: normal to inspection, full ROM, capillary refill normal, no joint enlargement, no clubbing, cyanosis or edema and no calf tenderness Neuro: COMMON NORMALS: patient oriented x3, CN's II-XII intact bilaterally, moves all extremities, no focal motor deficits and no sensory deficits noted SENSORIUM/ORIENTATION: Yes alert MENINGEAL SIGNS: Yes no meningeal signs SPEECH: speech normal Psych: COMMON NORMALS: mental status grossly normal, Normal thought process present, cooperative, normal affect, speech normal and activity/motor behavior normal SPEECH: Yes normal speech THOUGHT PROCESS: Normal thought process present Skin: COMMON NORMALS: no rashes or lesions noted, turgor normal, no jaundice, no petechiae and no mottling GENERAL SKIN EXAM: no rashes or lesions noted and turgor normal Course Vital Signs: Vital signs: Vital Signs Temperature 98.0 F 11/27/19 19:05 Pulse Rate 74 11/27/19 19:41 Respiratory Rate 16 11/27/19 20:17 Blood Pressure 146/71 11/27/19 19:41 Pulse Oximetry 95 11/27/19 20:17 MDM - SOB/Dyspnea MDM Narrative: Medical decision making narrative: Willie is a very nice 78-year-old male who comes in complaining of chest pain. The pain does not sound cardiac in nature. I have seen him multiple times in the past and worked him up numerous times and as he is done multiple times before now he wants to go home. His troponin is at his baseline and his EKG is unchanged. Willie does this very often where he comes in after 1 set of blood tests and EKG he wants to go home. I do believe he gets very anxious sometimes. I did review with him the possibility of this being something severe but he states he wants to go home. He declines to stay any longer. His family is well-known to me as well and they will have him return if necessary. At no time is the patient never sought any sign of distress. Patient understands welcome to return I believe he likely will but at this time as his pain is long since subsided he wants to go home. Patient clearly has the capacity to make this decision and despite my warnings he wants to leave. He agrees to return should symptoms change or worsen. He is asked multiple questions and decided for himself though he wants to go home. Lab Data: Attestation: I reviewed the patient's lab results. Labs: Lab Results 11/27/19 11/27/19 11/27/19 Range/Units 19:22 19:22 19:22 WBC 5.9 (4.0-10.0) 10^3/ uL RBC 4.65 (4.1-5.3) 10^6/u L Hgb 11.5 L (11.7-16.6) g/dL Hct 39.0 L (42.0-52.0) % MCV 83.9 (80-94) fL MCH 24.7 L (28.0-34.0) pg MCHC 29.5 L (30.0-36.0) g/dL RDW 15.7 H (12.1-15.1) % Plt Count 299 (130-400) 10^3/c mm MPV 10.2 (7.4-10.4) fL Neut % (Auto) 64.1 % Lymph % (Auto) 18.6 % [place] % (Auto) 10.2 % Eos % (Auto) 6.1 % Baso % (Auto) 0.8 % Neut # (Auto) 3.78 (1.8-7.7) 10^3/u L Lymph # (Auto) 1.1 (0.8-4.8) 10^3/u L [place] # (Auto) 0.6 (0.2-0.9) 10^3/u L Eos # (Auto) 0.4 (0.0-0.8) 10^3/u L Baso # (Auto) 0.1 (0.0-0.1) 10^3/u L Nucleated RBC % (a uto) 0 % Nucleated RBCs # 0.0 /100WBC Sodium 143 (136-145) mmol/L Potassium 3.8 (3.5-5.1) mmol/L Chloride 107 (98-107) mmol/L Carbon Dioxide 25 (22-29) mmol/L Anion Gap 14.8 (5-19) BUN 10 (8-23) mg/dL Creatinine 1.1 (0.7-1.2) mg/dL GFR Calculation Not Reportable Glucose 109 (65-115) mg/dL Calculated Osmolal ity 296 H (285-295) mOsm/k g Calcium 9.2 (8.5-10.5) mg/dL Total Bilirubin 0.2 (0.15-1.2) mg/dL AST 18 (0-40) U/L ALT 13 (0-41) U/L Alkaline Phosphata se 94 (40-130) IU/L Troponin T Baselin e 30 H (0-15) ng/L Total Protein 6.8 (6.6-8.7) g/dL Albumin 4.3 (3.5-5.2) g/dL Globulin 2.5 (1.3-4.6) g/dL Imaging Data^: CXR: Attestation: I personally reviewed and interpreted this imaging study as follows: My impression: No acute cardiopulmonary findings. EKG Data^: EKG 1: Attestation: I personally reviewed and interpreted this EKG as follows: EKG Interpretation Date: 11/27/19 EKG interpretation time: 19:38 Interpretation: Atrial fibrillation with a ventricular rate of 70 beats a minute, left axis deviation, no acute ST or T wave changes. Unchanged from previous. Discharge Plan Discharge Patient Disposition: Home Clinical Impression: Chest pain Qualifiers: Chest pain type: unspecified Qualified Code(s): R07.9 - Chest pain, unspecified Condition: Stable Prescriptions: No Action tamsulosin [Flomax] 0.4 mg capsule 0.4 mg PO DAILY RF: 0 risperidone 0.5 mg tablet 0.5 mg PO BID RF: 0 melatonin 5 mg capsule 5 - 10 mg PO BEDTIME RF: 0 ascorbate calcium (vitamin C) 500 mg tablet 500 mg PO DAILY RF: 0 furosemide 40 mg tablet 40 mg PO BID Qty: 180 RF: 1 potassium chloride 20 mEq tablet extended release 20 meq PO DAILY 90 Days Qty: 90 RF: 1 Eliquis 5 mg tablet 5 mg PO BID 90 Days Qty: 180 RF: 1 spironolactone 25 mg Tablet 25 mg PO DAILY RF: 0 sucralfate [Carafate] 100 mg/mL suspension See Rx Instructions .ROUTE .COMPLEX RF: 0 esomeprazole magnesium [Nexium] 40 mg capsule,delayed release(DR/EC) 40 mg PO DAILY RF: 0 benzonatate [Tessalon Perles] 100 mg capsule 100 mg PO BID Qty: 14 RF: 0 vitamin B complex Tablet 1 tab PO DAILY RF: 0 levofloxacin 750 mg tablet 750 mg PO DAILY RF: 0 methylprednisolone [Medrol (Wilfredo)] 4 mg tablets,dose pack See Rx Instructions .ROUTE .COMPLEX Qty: 21 RF: 0 Discharge Orders: Discharge Order (Routine); Ordered 11/27/19 Ordered By: Jaci Leger Referrals: Ashley Medrano FNP [Primary Care Provider] - 1-3 days Discharge Diet: Advance as tolerated Discharge Activity: Increase activity as tolerated Patient Instructions: Chest Pain (ED) Activity Restrictions/Additional Instructions: Please return to the ER immediately for any of the signs or symptoms listed on your discharge instruction sheets, worsening/changing of your symptoms, you are not getting better as quickly as expected, or for ANY other cause or concerns. I have offered and encouraged you to stay for further evaluation and care of your heart but you have declined. If your symptoms change or worsen please return to the ER for recheck. As we discussed many type of heart problems can be life-threatening including the way you have described your pain. If you change your mind and want further evaluation and care or your symptoms return you are more than welcome to return to the ER for further evaluation and care. Coding Level of Care Code ED Surgical Product Sales Consultant for Irma Delgado Exam Comprehensive
[2019-11-27 19:30] LABS: Basophils # 0.1 10^3/uL (0.0-0.1); Basophils % 0.8 %; Eosinophils # 0.4 10^3/uL (0.0-0.8); Eosinophils % 6.1 %; Hemoglobin 11.5 g/dL (11.7-16.6); Lymphocytes # 1.1 10^3/uL (0.8-4.8); Lymphocytes % 18.6 %; Mean Corpuscular HGB Conc 29.5 g/dL (30.0-36.0); Mean Corpuscular Hemoglobin 24.7 pg (28.0-34.0); Mean Corpuscular Volume 83.9 fL (80-94); Mean Platelet Volume 10.2 fL (7.4-10.4); Monocytes # 0.6 10^3/uL (0.2-0.9); Monocytes % 10.2 %; Neutrophils # 3.78 10^3/uL (1.8-7.7); Neutrophils % 64.1 %; Nucleated Red Blood Cells % 0 %; Platelet Count 299 10^3/cmm (130-400); Red Blood Count 4.65 10^6/uL (4.1-5.3); Red Cell Distribution Width 15.7 % (12.1-15.1); White Blood Count 5.9 10^3/uL (4.0-10.0)
[2019-11-27] MEDS: aspirin 81 mg Chew Tablet 324 MG PO (19:39)
[2019-11-27 19:41] VITALS: BP 146/71; PULSE 74; RESP 15; O2SAT 93
[2019-11-27 19:52] LABS: Alanine Aminotransferase 13 U/L (0-41); Albumin Level 4.3 g/dL (3.5-5.2); Alkaline Phosphatase 94 IU/L (40-130); Anion Gap 14.8 (5-19); Aspartate Amino Transferase 18 U/L (0-40); Blood Urea Nitrogen 10 mg/dL (8-23); Calcium 9.2 mg/dL (8.5-10.5); Carbon Dioxide 25 mmol/L (22-29); Chloride 107 mmol/L (98-107); Globulin 2.5 g/dL (1.3-4.6); Glucose 109 mg/dL (65-115); Osmolality Calculated 296 mOsm/kg (285-295); Potassium 3.8 mmol/L (3.5-5.1); Sodium 143 mmol/L (136-145); Total Bilirubin 0.2 mg/dL (0.15-1.2); Total Protein 6.8 g/dL (6.6-8.7)
[2019-11-27 19:53] LABS: Troponin(5th) Baseline 30 ng/L (0-15)
[2019-11-27 20:17] VITALS: RESP 16; O2SAT 95
[2019-11-27 20:46] VITALS: BP 149/79; PULSE 76; RESP 16; O2SAT 95
== END 2019-11-27 20:48 | disposition home or self-care (01) ==
PROVIDERS: Emergency Provider Emergency Medicine; PCP Nurse Practitioner Family
DX: R07.9 Chest pain, unspecified (principal); Z79.01 Long term (current) use of anticoagulants; I48.91 Unspecified atrial fibrillation; Z85.01 Personal history of malignant neoplasm of esophagus; I11.0 Hypertensive heart disease with heart failure; I50.9 Heart failure, unspecified; J44.9 Chronic obstructive pulmonary disease, unspecified; Z86.73 Personal history of transient ischemic attack (TIA), and cerebral infarction without residual deficits; E78.5 Hyperlipidemia, unspecified; G31.83 Neurocognitive disorder with Lewy bodies; F02.80 Dementia in other diseases classified elsewhere, unspecified severity, without behavioral disturbance, psychotic disturbance, mood disturbance, and anxiety; Z87.891 Personal history of nicotine dependence
CPT/HCPCS: 12345; 36415; 71045; 80053; 84484; 85025; 93005; 99282; 99284

== ENCOUNTER 2019-11-28 12:25 | Emergency (ER) | payer MEDICARE, MEDICAID, SELFPAY ==
--- NOTE | 2019-11-28 12:35 | ECG_ITS ---
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 Measurements Intervals [place] Rate: 61 P: [place]: -1 QRS: -18 QRSD: 109 T: 120 QT: 412 QTc: 418 Interpretive Statements ATRIAL FIBRILLATION LOW QRS VOLTAGE IN PRECORDIAL LEADS [QRS DEFLECTION < 1.0 mV IN CHEST LEADS] POSSIBLE RIGHT VENTRICULAR CONDUCTION DELAY [RSR (QR) IN V1/V2] NONSPECIFIC ST & T-WAVE ABNORMALITY Compared to ECG 11/27/2019 19:38:27 No significant changes Electronically Signed On 11-28-2019 17:53:29 CDT by Ashley Bethea M.D. [email or web address] [email or web address] [id number]
--- NOTE | 2019-11-28 12:35 | XR_ITS ---
WS: [id number] PORTABLE CHEST HISTORY: Chest pain. COMPARISON: 11/27/2019 CHIEF SECURITY OFFICER shunt catheter projects over the LEFT thorax. Chronic emphysema. Arthritic changes at the first LEFT rib costochondral junction. No pleural effusio n or pneumothorax. Cardiac size: Mildly enlarged cardiac silhouette. Mediastinum/Aorta: Mild atherosclerosis aorta. No osseous abnormality seen. XR/XR chest 1V portable [id number] IMPRESSION: Chronic emphysema. No acute cardiopulmonary disease.
--- NOTE | 2019-11-28 12:36 | ED_ITS ---
HPI - Chest Pain General: Chief Complaint: Chest Pain Stated Complaint: CHEST PAIN Time Seen by Provider: 11/28/19 12:28 History of Present Illness: HPI narrative: She arrived via ambulance with complaint about chest pain patient said he can find anything on his visit last night just wants to know if he is okay. Chest pains been going on for years Said no change in quality or severity of his chest pain no Shortness of breath nausea vomiting cough MD complaint: chest pain Onset (ago): year(s) Timing of current episode: episodic Prior episodes: Yes Pain location: left chest Pain radiation: none Severity: mild Quality: sharp Relieving factors: nothing Exacerbating factors: nothing Associated symptoms: Reports no associated symptoms; Deny abdominal pain, dyspnea, fever(s), nausea or vomiting Treatment prior to arrival: none Review of Systems Const: Denies: fever(s), chills or body aches Eyes: Denies: change in vision or blurry vision ENMT: Denies: throat pain or nasal congestion Card: Reports: chest pain; Denies: dyspnea on exertion Resp: Denies: dyspnea, productive cough or non-productive cough GI: Denies: abdominal pain, nausea or vomiting : Denies: difficulty urinating Musc: Denies: extremity pain Skin/Breast: Denies: rash Neuro: Denies: headache(s) Psych: Denies: anxiety or depression Grant/Lymph: Denies: easy bruising PFSH ED PFSH: Medical History (Updated 11/28/19 @ 14:04 by DENZEL Yeager) Acute alteration in mental status Anemia Anticoagulation adequate with anticoagulant therapy ASHD (arteriosclerotic heart disease) Atrial fibrillation was taken off anticoagulation due to GI bleed, has IVC filter Piper's esophagus BPH (benign prostatic hyperplasia) Carcinoma of esophagus radiation esophagitis CHF (congestive heart failure) CHF (congestive heart failure), NYHA class I COPD (chronic obstructive pulmonary disease) COPD exacerbation CVA (cerebral vascular accident) Diabetes Diarrhea Dyslipidemia (high LDL; low HDL) Essential hypertension Gait disturbance Lewy body dementia with behavioral disturbance NATALI (obstructive sleep apnea) Pneumonia Post laminectomy syndrome Pulmonary emboli Surgical History Trip filter in place History of esophagogastroduodenoscopy (EGD) (07/24/19) resolution of Grade D esophagitis, no evidence of carcinoma Previous back surgery S/P angioplasty with stent S/P appendectomy S/P hernia repair S/P tonsillectomy 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 Aicha Roche CHIEF DISPATCHER SERVICE shunt revision Family History Father CAD (coronary artery disease) Mother CAD (coronary artery disease) Hypertension Sister CAD (coronary artery disease) Diabetes Family/Other Stroke Denies family history of Anesthesia complication Bleeding disorder Social History Smoking and tobacco status: former smoker Quit status (tobacco): has quit using tobacco Alcohol intake: former Physical Exam Const: COMMON NORMALS: no acute distress, average body habitus and patient oriented x3 HENMT: COMMON NORMALS: normocephalic HEAD & SCALP: normal to inspection and normocephalic FACE & SINUS: normal facial exam Eye: COMMON NORMALS: conjunctivae normal GENERAL EYE: appearance normal, both eyes and all related structures CONJUNCTIVA: Yes conjunctivae normal Neck/C-Spine: COMMON NORMALS: no JVD Chest: COMMONS NORMALS: normal inspection of the chest Resp: COMMON NORMALS: normal respiratory effort and clear to auscultation bilaterally AUSCULTATION: clear to auscultation bilaterally Cardio: COMMON NORMALS: no JVD, regular rate and regular rhythm RATE: regular rate RHYTHM: regular rhythm GI: COMMON NORMALS: Normal to inspection, nondistended, normoactive bowel sounds present Extremity: COMMON NORMALS: normal to inspection and full ROM Neuro: COMMON NORMALS: patient oriented x3 Course Vital Signs: Vital signs: Vital Signs Pulse Rate 69 11/28/19 13:56 Respiratory Rate 16 11/28/19 13:56 Blood Pressure 133/64 11/28/19 13:56 Pulse Oximetry 96 11/28/19 13:56 MDM - Chest Pain MDM Narrative: Medical decision making narrative: Discussed with patient his chest pain is labs x-ray. Went over past history with patient. Need to establish with with a primary care provider. And take aspirin Tylenol or ibuprofen for his arthritis and chest discomfort as needed. Need to see rug dry room attendant about his chronic A. fib. Lab Data: Labs: Lab Results 11/28/19 11/28/19 11/28/19 Range/Units 13:24 13:24 13:24 WBC 5.1 (4.0-10.0) 10^3/ uL RBC 4.36 (4.1-5.3) 10^6/u L Hgb 10.8 L (11.7-16.6) g/dL Hct 36.7 L (42.0-52.0) % MCV 84.2 (80-94) fL MCH 24.8 L (28.0-34.0) pg MCHC 29.4 L (30.0-36.0) g/dL RDW 15.5 H (12.1-15.1) % Plt Count 269 (130-400) 10^3/c mm MPV 10.5 H (7.4-10.4) fL Neut % (Auto) 58.5 % Lymph % (Auto) 20.4 % [place] % (Auto) 12.2 % Eos % (Auto) 6.3 % Baso % (Auto) 0.8 % Neut # (Auto) 2.98 (1.8-7.7) 10^3/u L Lymph # (Auto) 1.0 (0.8-4.8) 10^3/u L [place] # (Auto) 0.6 (0.2-0.9) 10^3/u L Eos # (Auto) 0.3 (0.0-0.8) 10^3/u L Baso # (Auto) 0.0 (0.0-0.1) 10^3/u L Nucleated RBC % (a uto) 0 % Nucleated RBCs # 0.0 /100WBC Sodium 140 (136-145) mmol/L Potassium 3.7 (3.5-5.1) mmol/L Chloride 106 (98-107) mmol/L Carbon Dioxide 26 (22-29) mmol/L Anion Gap 11.7 (5-19) BUN 11 (8-23) mg/dL Creatinine 1.0 (0.7-1.2) mg/dL GFR Calculation Not Reportable Glucose 87 (65-115) mg/dL Calculated Osmolal ity 289 (285-295) mOsm/k g Calcium 8.7 (8.5-10.5) mg/dL Troponin T Gen 5 n g/L 30 H (0-15) ng/L EKG Data^: EKG 1: EKG interpretation date: 11/28/19 EKG interpretation time: 12:44 Interpretation: Patient A. fib ventricular rate 61 bpm rest durations 109 ms no change. Discharge Plan Discharge Patient Disposition: Home Clinical Impression: Atypical chest pain Condition: Stable Prescriptions: No Action tamsulosin [Flomax] 0.4 mg capsule 0.4 mg PO DAILY RF: 0 risperidone 0.5 mg tablet 0.5 mg PO BID RF: 0 melatonin 5 mg capsule 5 - 10 mg PO BEDTIME RF: 0 ascorbate calcium (vitamin C) 500 mg tablet 500 mg PO DAILY RF: 0 furosemide 40 mg tablet 40 mg PO BID Qty: 180 RF: 1 potassium chloride 20 mEq tablet extended release 20 meq PO DAILY 90 Days Qty: 90 RF: 1 Eliquis 5 mg tablet 5 mg PO BID 90 Days Qty: 180 RF: 1 spironolactone 25 mg Tablet 25 mg PO DAILY RF: 0 sucralfate [Carafate] 100 mg/mL suspension See Rx Instructions .ROUTE .COMPLEX RF: 0 esomeprazole magnesium [Nexium] 40 mg capsule,delayed release(DR/EC) 40 mg PO DAILY RF: 0 benzonatate [Tessalon Perles] 100 mg capsule 100 mg PO BID Qty: 14 RF: 0 vitamin B complex Tablet 1 tab PO DAILY RF: 0 levofloxacin 750 mg tablet 750 mg PO DAILY RF: 0 methylprednisolone [Medrol (Wilfredo)] 4 mg tablets,dose pack See Rx Instructions .ROUTE .COMPLEX Qty: 21 RF: 0 Discharge Orders: Discharge Order (Routine); Ordered 11/28/19 Ordered By: Jhon Appiah Referrals: Ashley Medrano FNP [Primary Care Provider] - Discharge Diet: Usual diet Discharge Activity: Increase activity as tolerated Patient Instructions: Noncardiac Chest Pain (ED) Activity Restrictions/Additional Instructions: Follow-up your primary care provider for your ongoing chest pain issues. Coding Level of Care Code ED Senior Ui Ux Developer for Chg Fwd Exam Comprehensive
[2019-11-28 13:00] VITALS: BMI 30.9
[2019-11-28 13:11] VITALS: BP 133/64; PULSE 67; RESP 17; O2SAT 98
[2019-11-28 13:26] VITALS: BP 133/64; PULSE 76; RESP 17; O2SAT 97
[2019-11-28 13:32] LABS: Basophils % 0.8 %; Eosinophils # 0.3 10^3/uL (0.0-0.8); Eosinophils % 6.3 %; Hematocrit 36.7 % (42.0-52.0); Hemoglobin 10.8 g/dL (11.7-16.6); Lymphocytes % 20.4 %; Mean Corpuscular HGB Conc 29.4 g/dL (30.0-36.0); Mean Corpuscular Hemoglobin 24.8 pg (28.0-34.0); Mean Corpuscular Volume 84.2 fL (80-94); Mean Platelet Volume 10.5 fL (7.4-10.4); Monocytes # 0.6 10^3/uL (0.2-0.9); Monocytes % 12.2 %; Neutrophils # 2.98 10^3/uL (1.8-7.7); Neutrophils % 58.5 %; Nucleated Red Blood Cells % 0 %; Platelet Count 269 10^3/cmm (130-400); Red Blood Count 4.36 10^6/uL (4.1-5.3); Red Cell Distribution Width 15.5 % (12.1-15.1); White Blood Count 5.1 10^3/uL (4.0-10.0)
[2019-11-28 13:41] VITALS: BP 133/64; PULSE 74; RESP 18; O2SAT 96
[2019-11-28] MEDS: acetaminophen 500 mg Tablet 1000 MG PO (13:41)
[2019-11-28 13:51] LABS: Anion Gap 11.7 (5-19); Blood Urea Nitrogen 11 mg/dL (8-23); Calcium 8.7 mg/dL (8.5-10.5); Carbon Dioxide 26 mmol/L (22-29); Chloride 106 mmol/L (98-107); Glucose 87 mg/dL (65-115); Osmolality Calculated 289 mOsm/kg (285-295); Potassium 3.7 mmol/L (3.5-5.1); Sodium 140 mmol/L (136-145)
[2019-11-28 13:52] LABS: Troponin T (5th) Once 30 ng/L (0-15)
[2019-11-28 13:56] VITALS: BP 133/64; PULSE 69; RESP 16; O2SAT 96
[2019-11-28 14:25] VITALS: BP 139/79; PULSE 71; RESP 18; TEMP 36.5; O2SAT 98
== END 2019-11-28 14:25 | disposition home or self-care (01) ==
PROVIDERS: Emergency Provider Nurse Practitioner Family; PCP Nurse Practitioner Family
DX: R07.89 Other chest pain (principal); Z79.01 Long term (current) use of anticoagulants; I48.91 Unspecified atrial fibrillation; Z85.01 Personal history of malignant neoplasm of esophagus; I11.0 Hypertensive heart disease with heart failure; I50.9 Heart failure, unspecified; J44.9 Chronic obstructive pulmonary disease, unspecified; Z86.73 Personal history of transient ischemic attack (TIA), and cerebral infarction without residual deficits; E11.9 Type 2 diabetes mellitus without complications; E78.5 Hyperlipidemia, unspecified; G31.83 Neurocognitive disorder with Lewy bodies; F02.80 Dementia in other diseases classified elsewhere, unspecified severity, without behavioral disturbance, psychotic disturbance, mood disturbance, and anxiety; Z87.891 Personal history of nicotine dependence
CPT/HCPCS: 12345; 71045; 80048; 84484; 85025; 93005; 99283

== ENCOUNTER 2019-11-30 13:03 | Emergency (ER) | payer MEDICARE, MEDICAID, SELFPAY ==
[2019-11-30 13:04] VITALS: BP 108/74; PULSE 72; RESP 18; TEMP 36.4; O2SAT 100; BMI 31.4
--- NOTE | 2019-11-30 13:04 | ECG_ITS ---
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 Measurements Intervals [place] Rate: 67 P: [place]: -1 QRS: -15 QRSD: 91 T: 97 QT: 389 QTc: 412 Interpretive Statements ATRIAL FIBRILLATION LOW QRS VOLTAGE IN PRECORDIAL LEADS [QRS DEFLECTION < 1.0 mV IN CHEST LEADS] POSSIBLE RIGHT VENTRICULAR CONDUCTION DELAY [RSR (QR) IN V1/V2] NONSPECIFIC ST & T-WAVE ABNORMALITY Compared to ECG 11/28/2019 12:40:21 No significant changes Electronically Signed On 11-30-2019 19:50:23 CDT by Wilton Griffin M.D. [id number]
--- NOTE | 2019-11-30 13:04 | XRR_ITS ---
PROCEDURE INFORMATION: Exam: XR Chest, 1 View Exam date and time: 11/30/2019 1:05 PM Age: 78 years old Clinical indication: Cough; Chest pain; Type not specified; Additional info: Cp TECHNIQUE: Imaging protocol: XR of the chest Views: 1 view. COMPARISON: CR XR chest 1V portable [id number] 11/28/2019 12:37 PM FINDINGS: Tubes, catheters and devices: Partially visualized ventriculoperitoneal shunt tube. Lungs: Unremarkable. No consolidation. Pleural space: Unremarkable. No pleural effusion. No pneumothorax. Heart/Mediastinum: Unremarkable. No cardiomegaly. Vasculature: Aortic arch is prominent similar to the prior study. Bones/joints: Unremarkable. XR/XR chest 1V portable [id number] IMPRESSION: Aortic arch is prominent similar to the prior study. This can be seen with hypertension. No evidence for acute cardiopulmonary disease.
--- NOTE | 2019-11-30 13:06 | W.ED.CHESTPA ---
HPI - Chest Pain General: Chief Complaint: Chest Pain Stated Complaint: CHEST PAIN Time Seen by Provider: 11/30/19 13:04 Source: patient and EMS Mode of arrival: EMS Limitations: no limitations History of Present Illness: HPI narrative: 78-year-old male who is very well-known to the ER here by EMS with chest pain. He states he has had pain for a week. Pain is sharp in nature denies any worsening improving factors. Denies any shortness of breath. MD complaint: chest pain Associated symptoms: Deny abdominal pain, dyspnea, fever(s), nausea or vomiting Review of Systems Const: Denies: fever(s), chills, body aches or change in appetite Eyes: Denies: blurry vision or eye discomfort ENMT: Denies: throat pain or dental pain Card: Reports: chest pain Resp: Denies: dyspnea GI: Denies: abdominal pain, nausea, vomiting or diarrhea : Denies: dysuria Musc: Denies: neck pain or back pain Skin/Breast: Denies: rash Neuro: Denies: headache(s) Psych: Denies: depression Grant/Lymph: Denies: easy bruising All/Imm: Denies: urticaria PFSH ED PFSH: Medical History Acute alteration in mental status Anemia Anticoagulation adequate with anticoagulant therapy ASHD (arteriosclerotic heart disease) Atrial fibrillation was taken off anticoagulation due to GI bleed, has IVC filter Piper's esophagus BPH (benign prostatic hyperplasia) Carcinoma of esophagus radiation esophagitis CHF (congestive heart failure) CHF (congestive heart failure), NYHA class I COPD (chronic obstructive pulmonary disease) COPD exacerbation CVA (cerebral vascular accident) Diabetes Diarrhea Dyslipidemia (high LDL; low HDL) Essential hypertension Gait disturbance Lewy body dementia with behavioral disturbance NATALI (obstructive sleep apnea) Pneumonia Post laminectomy syndrome Pulmonary emboli Surgical History Trip filter in place History of esophagogastroduodenoscopy (EGD) (07/24/19) resolution of Grade D esophagitis, no evidence of carcinoma Previous back surgery S/P angioplasty with stent S/P appendectomy S/P hernia repair S/P tonsillectomy 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 Aicha Roche UPPER STITCHER shunt revision Family History Father CAD (coronary artery disease) Mother CAD (coronary artery disease) Hypertension Sister CAD (coronary artery disease) Diabetes Family/Other Stroke Denies family history of Anesthesia complication Bleeding disorder Social History Smoking and tobacco status: former smoker Quit status (tobacco): has quit using tobacco Alcohol intake: former Physical Exam Const: COMMON NORMALS: no acute distress, patient oriented x3 and healthy appearing HENMT: COMMON NORMALS: normocephalic and atraumatic HEAD & SCALP: normocephalic and atraumatic Eye: COMMON NORMALS: Equal, round and reactive pupils present and EOMs intact bilaterally PUPIL: Yes Equal, round and reactive pupils present Neck/C-Spine: COMMON NORMALS: full ROM and supple Chest: COMMONS NORMALS: normal inspection of the chest and normal palpation of entire chest wall Resp: COMMON NORMALS: normal respiratory effort, No retractions, No use of accessory muscles and clear to auscultation bilaterally AUSCULTATION: clear to auscultation bilaterally Cardio: COMMON NORMALS: regular rate, regular rhythm and No murmurs present (Cardio) RATE: regular rate RHYTHM: regular rhythm GI: COMMON NORMALS: Normal to inspection, nondistended, normoactive bowel sounds present, Soft to palpation, non-tender and no masses PALPATION: Yes Soft to palpation Extremity: COMMON NORMALS: normal to inspection and full ROM Neuro: COMMON NORMALS: patient oriented x3, moves all extremities and no focal motor deficits Psych: COMMON NORMALS: mental status grossly normal, Normal thought process present and cooperative THOUGHT PROCESS: Normal thought process present Skin: COMMON NORMALS: no rashes or lesions noted and no wounds GENERAL SKIN EXAM: no rashes or lesions noted Course Vital Signs: Vital signs: Vital Signs Temperature 97.5 F L 11/30/19 13:04 Pulse Rate 69 11/30/19 14:23 Respiratory Rate 22 H 11/30/19 14:23 Blood Pressure 113/57 11/30/19 14:23 Pulse Oximetry 100 11/30/19 14:23 MDM - Chest Pain MDM Narrative: Medical decision making narrative: Patient presents here with chest pain that is chronic in nature. Patient's troponin is unchanged and EKG and blood work are normal. He is to follow-up with PCP in 3 to 5 days return if worsening. He understands and agrees the plan. Lab Data: Labs: Lab Results 11/30/19 11/30/19 11/30/19 Range/Units 13:25 13:25 13:25 WBC 5.2 (4.0-10.0) 10^3/ uL RBC 4.39 (4.1-5.3) 10^6/u L Hgb 10.8 L (11.7-16.6) g/dL Hct 37.3 L (42.0-52.0) % MCV 85.0 (80-94) fL MCH 24.6 L (28.0-34.0) pg MCHC 29.0 L (30.0-36.0) g/dL RDW 15.6 H (12.1-15.1) % Plt Count 273 (130-400) 10^3/c mm MPV 10.3 (7.4-10.4) fL Neut % (Auto) 60.1 % Lymph % (Auto) 20.9 % Isabela % (Auto) 11.2 % Eos % (Auto) 6.8 % Baso % (Auto) 0.8 % Neut # (Auto) 3.11 (1.8-7.7) 10^3/u L Lymph # (Auto) 1.1 (0.8-4.8) 10^3/u L Isabela # (Auto) 0.6 (0.2-0.9) 10^3/u L Eos # (Auto) 0.4 (0.0-0.8) 10^3/u L Baso # (Auto) 0.0 (0.0-0.1) 10^3/u L Nucleated RBC % (a uto) 0 % Nucleated RBCs # 0.0 /100WBC Sodium 139 (136-145) mmol/L Potassium 3.9 (3.5-5.1) mmol/L Chloride 104 (98-107) mmol/L Carbon Dioxide 24 (22-29) mmol/L Anion Gap 14.9 (5-19) BUN 10 (8-23) mg/dL Creatinine 1.0 (0.7-1.2) mg/dL GFR Calculation Not Reportable Glucose 94 (65-115) mg/dL Calculated Osmolal ity 287 (285-295) mOsm/k g Calcium 8.6 (8.5-10.5) mg/dL Total Bilirubin 0.3 (0.15-1.2) mg/dL AST 14 (0-40) U/L ALT 13 (0-41) U/L Alkaline Phosphata se 81 (40-130) IU/L Troponin T Baselin e 31 H (0-15) ng/L Total Protein 6.5 L (6.6-8.7) g/dL Albumin 4.2 (3.5-5.2) g/dL Globulin 2.3 (1.3-4.6) g/dL Imaging Data^: CXR: Attestation: I personally reviewed and interpreted this imaging study as follows: My impression: no acute abnormality EKG Data^: EKG 1: Attestation: I personally reviewed and interpreted this EKG as follows: EKG interpretation date: 11/30/19 EKG interpretation time: 13:12 Interpretation: afib hr [address] or t wave abnormalities qrs 91 qtc 405 Discharge Plan Discharge Patient Disposition: Home Clinical Impression: Chest pain Condition: Stable Prescriptions: No Action tamsulosin [Flomax] 0.4 mg capsule 0.4 mg PO DAILY RF: 0 risperidone 0.5 mg tablet 0.5 mg PO BID RF: 0 melatonin 5 mg capsule 5 - 10 mg PO BEDTIME RF: 0 ascorbate calcium (vitamin C) 500 mg tablet 500 mg PO DAILY RF: 0 furosemide 40 mg tablet 40 mg PO BID Qty: 180 RF: 1 potassium chloride 20 mEq tablet extended release 20 meq PO DAILY 90 Days Qty: 90 RF: 1 Eliquis 5 mg tablet 5 mg PO BID 90 Days Qty: 180 RF: 1 spironolactone 25 mg Tablet 25 mg PO DAILY RF: 0 sucralfate [Carafate] 100 mg/mL suspension See Rx Instructions .ROUTE .COMPLEX RF: 0 esomeprazole magnesium [Nexium] 40 mg capsule,delayed release(DR/EC) 40 mg PO DAILY RF: 0 benzonatate [Tessalon Perles] 100 mg capsule 100 mg PO BID Qty: 14 RF: 0 vitamin B complex Tablet 1 tab PO DAILY RF: 0 levofloxacin 750 mg tablet 750 mg PO DAILY RF: 0 methylprednisolone [Medrol (Wilfredo)] 4 mg tablets,dose pack See Rx Instructions .ROUTE .COMPLEX Qty: 21 RF: 0 Discharge Orders: Discharge Order (Routine); Ordered 11/30/19 Ordered By: Leola Sequeira Referrals: Ashley Medrano FNP [Primary Care Provider] - Discharge Diet: Advance as tolerated Discharge Activity: Resume usual activity Patient Instructions: Chest Pain (ED) Discharge Date/Time: 11/30/19 14:23 Coding Level of Care Code ED Onboarding Specialist for Samig Fwd Exam Comprehensive
[2019-11-30 13:39] LABS: Basophils % 0.8 %; Eosinophils # 0.4 10^3/uL (0.0-0.8); Eosinophils % 6.8 %; Hematocrit 37.3 % (42.0-52.0); Hemoglobin 10.8 g/dL (11.7-16.6); Lymphocytes # 1.1 10^3/uL (0.8-4.8); Lymphocytes % 20.9 %; Mean Corpuscular Hemoglobin 24.6 pg (28.0-34.0); Mean Platelet Volume 10.3 fL (7.4-10.4); Monocytes # 0.6 10^3/uL (0.2-0.9); Monocytes % 11.2 %; Neutrophils # 3.11 10^3/uL (1.8-7.7); Neutrophils % 60.1 %; Nucleated Red Blood Cells % 0 %; Platelet Count 273 10^3/cmm (130-400); Red Blood Count 4.39 10^6/uL (4.1-5.3); Red Cell Distribution Width 15.6 % (12.1-15.1); White Blood Count 5.2 10^3/uL (4.0-10.0)
[2019-11-30 13:52] LABS: Alanine Aminotransferase 13 U/L (0-41); Albumin Level 4.2 g/dL (3.5-5.2); Alkaline Phosphatase 81 IU/L (40-130); Anion Gap 14.9 (5-19); Aspartate Amino Transferase 14 U/L (0-40); Blood Urea Nitrogen 10 mg/dL (8-23); Calcium 8.6 mg/dL (8.5-10.5); Carbon Dioxide 24 mmol/L (22-29); Chloride 104 mmol/L (98-107); Globulin 2.3 g/dL (1.3-4.6); Glucose 94 mg/dL (65-115); Osmolality Calculated 287 mOsm/kg (285-295); Potassium 3.9 mmol/L (3.5-5.1); Sodium 139 mmol/L (136-145); Total Bilirubin 0.3 mg/dL (0.15-1.2); Total Protein 6.5 g/dL (6.6-8.7)
[2019-11-30 13:53] VITALS: BP 113/57; RESP 16; O2SAT 100
--- NOTE | 2019-11-30 13:56 | PC.NURSE ---
Patient continues to ask about the stress unit stating his told him to ask about going to the stress unit. He asks what the stress unit it, was explained to patient multiple times, he states he does not want to go there or be transferred to psych unit, he wants to go home.
[2019-11-30 13:58] LABS: Troponin(5th) Baseline 31 ng/L (0-15)
[2019-11-30 14:23] VITALS: BP 113/57; PULSE 69; RESP 22; O2SAT 100
== END 2019-11-30 14:23 | disposition home or self-care (01) ==
PROVIDERS: Emergency Provider Emergency Medicine; PCP Nurse Practitioner Family
DX: R07.9 Chest pain, unspecified (principal); Z79.01 Long term (current) use of anticoagulants; I48.91 Unspecified atrial fibrillation; Z85.01 Personal history of malignant neoplasm of esophagus; I11.0 Hypertensive heart disease with heart failure; I50.9 Heart failure, unspecified; J44.9 Chronic obstructive pulmonary disease, unspecified; Z86.73 Personal history of transient ischemic attack (TIA), and cerebral infarction without residual deficits; E11.9 Type 2 diabetes mellitus without complications; E78.5 Hyperlipidemia, unspecified; G31.83 Neurocognitive disorder with Lewy bodies; F02.80 Dementia in other diseases classified elsewhere, unspecified severity, without behavioral disturbance, psychotic disturbance, mood disturbance, and anxiety; G47.33 Obstructive sleep apnea (adult) (pediatric); Z87.891 Personal history of nicotine dependence
CPT/HCPCS: 12345; 71045; 80053; 84484; 85025; 93005; 99281; 99283

== ENCOUNTER 2019-12-02 12:35 | Emergency (ER) | payer MEDICARE, MEDICAID, SELFPAY ==
[2019-12-02 12:37] VITALS: BP 142/65; PULSE 90; RESP 16; TEMP 36.3; O2SAT 98; BMI 29.0
[2019-12-02 12:45] VITALS: BP 142/65; PULSE 76; RESP 16; O2SAT 97
--- NOTE | 2019-12-02 13:10 | XRR_ITS ---
PROCEDURE INFORMATION: Exam: XR Chest, 1 View Exam date and time: 12/02/2019 1:20 PM Age: 78 years old Clinical indication: Shortness of breath; Chest pain TECHNIQUE: Imaging protocol: XR of the chest Views: 1 view. COMPARISON: CR (CHEST, ) 11/30/2019 1:08 PM FINDINGS: Tubes, catheters and devices: Ventricular peritoneal shunt catheter tubing. Lungs: Unremarkable. No consolidation. Pleural space: Unremarkable. No pleural effusion. No pneumothorax. Heart/Mediastinum: Borderline minimal cardiomegaly. Bones/joints: No acute findings. XR/XR chest 1V portable [id number] IMPRESSION: No acute findings.
--- NOTE | 2019-12-02 13:10 | ECG_ITS ---
[facility] Test Date: 2019-12-02 Pat Name: Willie Ram Department: Room: Gender: Male Hand Weaver: : 1940 Requested By: Cristobal Bustamante Order Number: [id number] Kevin MD: Ashley Bethea M.D. Measurements Intervals [place] Rate: 69 P: ID: -1 QRS: -2 QRSD: 90 T: 58 QT: 384 QTc: 412 Interpretive Statements ATRIAL FIBRILLATION LOW QRS VOLTAGE IN PRECORDIAL LEADS [QRS DEFLECTION < 1.0 mV IN CHEST LEADS] POSSIBLE RIGHT VENTRICULAR CONDUCTION DELAY [RSR (QR) IN V1/V2] NONSPECIFIC T-WAVE ABNORMALITY Compared to ECG 11/30/2019 13:12:10 No significant changes Electronically Signed On 12-02-2019 16:25:53 CDT by Ashley Bethea M.D. [id number]
[2019-12-02 13:32] LABS: Alanine Aminotransferase 15 U/L (0-41); Albumin Level 4.7 g/dL (3.5-5.2); Alkaline Phosphatase 95 IU/L (40-130); Aspartate Amino Transferase 19 U/L (0-40); Blood Urea Nitrogen 10 mg/dL (8-23); Calcium 9.5 mg/dL (8.5-10.5); Carbon Dioxide 24 mmol/L (22-29); Chloride 105 mmol/L (98-107); Globulin 2.3 g/dL (1.3-4.6); Glucose 90 mg/dL (65-115); Osmolality Calculated 287 mOsm/kg (285-295); Sodium 139 mmol/L (136-145); Total Bilirubin 0.3 mg/dL (0.15-1.2)
[2019-12-02 13:33] LABS: Troponin(5th) Baseline 32 ng/L (0-15)
[2019-12-02 13:46] LABS: Basophils % 0.7 %; Eosinophils # 0.4 10^3/uL (0.0-0.8); Eosinophils % 7.3 %; Hematocrit 39.8 % (42.0-52.0); Hemoglobin 11.5 g/dL (11.7-16.6); Lymphocytes # 1.3 10^3/uL (0.8-4.8); Lymphocytes % 21.6 %; Mean Corpuscular HGB Conc 28.9 g/dL (30.0-36.0); Mean Corpuscular Hemoglobin 24.2 pg (28.0-34.0); Mean Corpuscular Volume 83.8 fL (80-94); Mean Platelet Volume 10.5 fL (7.4-10.4); Monocytes # 0.6 10^3/uL (0.2-0.9); Monocytes % 10.5 %; Neutrophils # 3.45 10^3/uL (1.8-7.7); Neutrophils % 59.6 %; Nucleated Red Blood Cells % 0 %; Platelet Count 301 10^3/cmm (130-400); Red Blood Count 4.75 10^6/uL (4.1-5.3); Red Cell Distribution Width 15.5 % (12.1-15.1); White Blood Count 5.8 10^3/uL (4.0-10.0)
--- NOTE | 2019-12-02 14:09 | ED_ITS ---
HPI - Chest Pain General: Chief Complaint: Chest Pain Stated Complaint: CP Time Seen by Provider: 12/02/19 12:37 History of Present Illness: HPI narrative: 78-year-old male who is recurrent visits to the emergency room with complaints of chest pain. He is chronic intermittently had this for some time is multiple ER visits. He has had some dementia issues and behavioral issues as well. Previously had them seen by psychiatry they did not feel a [facility] psych admission would be helpful. He is complaining of left-sided chest pain that is reproducible with palpation today. He denies any nausea vomiting or diarrhea or diaphoresis. MD complaint: chest pain Onset (ago): hour(s) Timing of current episode: episodic Prior episodes: Yes Onset: during rest and during exertion Pain location: left chest Pain radiation: none Severity: mild Quality: aching and heaviness Relieving factors: nothing Exacerbating factors: nothing Associated symptoms: Deny abdominal pain, diaphoresis, dyspnea, fever(s), leg edema, nausea, palpitations, sense of impending doom, syncope or vomiting Treatment prior to arrival: none Review of Systems Const: Denies: fever(s) or diaphoresis ENMT: Denies: throat pain, ear or mastoid pain, nasal discharge or nasal congestion Card: Denies: palpitations or syncope Resp: Denies: dyspnea GI: Denies: abdominal pain, nausea or vomiting : Denies: flank pain, dysuria, urinary frequency or urinary urgency Skin/Breast: Denies: rash or pruritus PFS ED PFSH: Medical History Acute alteration in mental status Anemia Anticoagulation adequate with anticoagulant therapy ASHD (arteriosclerotic heart disease) Atrial fibrillation was taken off anticoagulation due to GI bleed, has IVC filter Piper's esophagus BPH (benign prostatic hyperplasia) Carcinoma of esophagus radiation esophagitis CHF (congestive heart failure) CHF (congestive heart failure), NYHA class I COPD (chronic obstructive pulmonary disease) COPD exacerbation CVA (cerebral vascular accident) Diabetes Diarrhea Dyslipidemia (high LDL; low HDL) Essential hypertension Gait disturbance Lewy body dementia with behavioral disturbance NATALI (obstructive sleep apnea) Pneumonia Post laminectomy syndrome Pulmonary emboli Surgical History [place] filter in place History of esophagogastroduodenoscopy (EGD) (07/24/19) resolution of Grade D esophagitis, no evidence of carcinoma Previous back surgery S/P angioplasty with stent S/P appendectomy S/P hernia repair S/P tonsillectomy RETAIL ACCOUNT EXECUTIVE (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 Aicha Roche RETAIL ACCOUNT EXECUTIVE shunt revision Family History Father CAD (coronary artery disease) Mother CAD (coronary artery disease) Hypertension Sister CAD (coronary artery disease) Diabetes Family/Other Stroke Denies family history of Anesthesia complication Bleeding disorder Social History Smoking and tobacco status: former smoker Quit status (tobacco): has quit using tobacco Alcohol intake: former Physical Exam Const: COMMON NORMALS: no acute distress GENERAL APPEARANCE: cooperative and comfortable ORIENTATION/CONSCIOUSNESS: Yes oriented to person, Yes oriented to place and Yes oriented to time HENMT: COMMON NORMALS: normocephalic, atraumatic and hearing grossly normal bilaterally HEAD & SCALP: normocephalic and atraumatic Neck/C-Spine: COMMON NORMALS: no JVD Resp: COMMON NORMALS: normal respiratory effort, No retractions, No use of accessory muscles and clear to auscultation bilaterally AUSCULTATION: clear to auscultation bilaterally Cardio: COMMON NORMALS: no JVD, regular rate, regular rhythm and No murmurs present (Cardio) RATE: regular rate RHYTHM: regular rhythm GI: COMMON NORMALS: Soft to palpation and No hepatosplenomegaly present AUSCULTATION: Yes normoactive bowel sounds PALPATION: Yes Soft to palpation, No Tenderness to palpation present (GI), No Guarding due to palpation present (G I) and Yes No hepatosplenomegaly present Extremity: COMMON NORMALS: normal to inspection, capillary refill normal, no clubbing, cyanosis or edema, no calf tenderness and no pedal edema Neuro: SENSORIUM/ORIENTATION: Yes oriented to person, Yes oriented to place and Yes oriented to time Skin: COMMON NORMALS: no rashes or lesions noted GENERAL SKIN EXAM: no rashes or lesions noted Course Vital Signs: Vital signs: Vital Signs Temperature 97.4 F L 12/02/19 12:37 Pulse Rate 78 12/02/19 17:08 Respiratory Rate 15 12/02/19 17:08 Blood Pressure 158/68 12/02/19 17:08 Pulse Oximetry 97 12/02/19 17:08 MDM - Chest Pain MDM Narrative: Medical decision making narrative: Patient anxious to leave. Troponin negative on the delta. Discharged home continue same medications return if has any further problems. Lab Data: Labs: Lab Results 12/02/19 12/02/19 12/02/19 Range/Units 12:30 12:30 12:30 WBC 5.8 (4.0-10.0) 10^3/ uL RBC 4.75 (4.1-5.3) 10^6/u L Hgb 11.5 L (11.7-16.6) g/dL Hct 39.8 L (42.0-52.0) % MCV 83.8 (80-94) fL MCH 24.2 L (28.0-34.0) pg MCHC 28.9 L (30.0-36.0) g/dL RDW 15.5 H (12.1-15.1) % Plt Count 301 (130-400) 10^3/c mm MPV 10.5 H (7.4-10.4) fL Neut % (Auto) 59.6 % Lymph % (Auto) 21.6 % Anderson % (Auto) 10.5 % Eos % (Auto) 7.3 % Baso % (Auto) 0.7 % Neut # (Auto) 3.45 (1.8-7.7) 10^3/u L Lymph # (Auto) 1.3 (0.8-4.8) 10^3/u L Anderson # (Auto) 0.6 (0.2-0.9) 10^3/u L Eos # (Auto) 0.4 (0.0-0.8) 10^3/u L Baso # (Auto) 0.0 (0.0-0.1) 10^3/u L Nucleated RBC % (a uto) 0 % Nucleated RBCs # 0.0 /100WBC Sodium 139 (136-145) mmol/L Potassium 4.0 (3.5-5.1) mmol/L Chloride 105 (98-107) mmol/L Carbon Dioxide 24 (22-29) mmol/L Anion Gap 14.0 (5-19) BUN 10 (8-23) mg/dL Creatinine 1.3 H (0.7-1.2) mg/dL GFR Calculation Not Reportable Glucose 90 (65-115) mg/dL Calculated Osmolal ity 287 (285-295) mOsm/k g Calcium 9.5 (8.5-10.5) mg/dL Total Bilirubin 0.3 (0.15-1.2) mg/dL AST 19 (0-40) U/L ALT 15 (0-41) U/L Alkaline Phosphata se 95 (40-130) IU/L Troponin T Baselin e 32 H (0-15) ng/L Troponin T 120 Min stebbins Delta Troponin T Total Protein 7.0 (6.6-8.7) g/dL Albumin 4.7 (3.5-5.2) g/dL Globulin 2.3 (1.3-4.6) g/dL 12/02/19 12/02/19 Range/Units 14:35 15:20 WBC (4.0-10.0) 10^3/ uL RBC (4.1-5.3) 10^6/u L Hgb (11.7-16.6) g/dL Hct (42.0-52.0) % MCV (80-94) fL MCH (28.0-34.0) pg MCHC (30.0-36.0) g/dL RDW (12.1-15.1) % Plt Count (130-400) 10^3/c mm MPV (7.4-10.4) fL Neut % (Auto) % Lymph % (Auto) % Anderson % (Auto) % Eos % (Auto) % Baso % (Auto) % Neut # (Auto) (1.8-7.7) 10^3/u L Lymph # (Auto) (0.8-4.8) 10^3/u L Anderson # (Auto) (0.2-0.9) 10^3/u L Eos # (Auto) (0.0-0.8) 10^3/u L Baso # (Auto) (0.0-0.1) 10^3/u L Nucleated RBC % (a uto) % Nucleated RBCs # /100WBC Sodium (136-145) mmol/L Potassium (3.5-5.1) mmol/L Chloride (98-107) mmol/L Carbon Dioxide (22-29) mmol/L Anion Gap (5-19) BUN (8-23) mg/dL Creatinine (0.7-1.2) mg/dL GFR Calculation Glucose (65-115) mg/dL Calculated Osmolal ity (285-295) mOsm/k g Calcium (8.5-10.5) mg/dL Total Bilirubin (0.15-1.2) mg/dL AST (0-40) U/L ALT (0-41) U/L Alkaline Phosphata se (40-130) IU/L Troponin T Baselin e (0-15) ng/L Troponin T 120 Min stebbins Cancelled 32.22 H Delta Troponin T Cancelled 0.22 Total Protein (6.6-8.7) g/dL Albumin (3.5-5.2) g/dL Globulin (1.3-4.6) g/dL Discharge Plan Discharge Patient Disposition: Home Clinical Impression: Atypical chest pain Condition: Stable Prescriptions: No Action tamsulosin [Flomax] 0.4 mg capsule 0.4 mg PO DAILY RF: 0 risperidone 0.5 mg tablet 0.5 mg PO BID RF: 0 melatonin 5 mg capsule 5 - 10 mg PO BEDTIME RF: 0 ascorbate calcium (vitamin C) 500 mg tablet 500 mg PO DAILY RF: 0 furosemide 40 mg tablet 40 mg PO BID Qty: 180 RF: 1 potassium chloride 20 mEq tablet extended release 20 meq PO DAILY 90 Days Qty: 90 RF: 1 Eliquis 5 mg tablet 5 mg PO BID 90 Days Qty: 180 RF: 1 spironolactone 25 mg Tablet 25 mg PO DAILY RF: 0 sucralfate [Carafate] 100 mg/mL suspension See Rx Instructions .ROUTE .COMPLEX RF: 0 esomeprazole magnesium [Nexium] 40 mg capsule,delayed release(DR/EC) 40 mg PO DAILY RF: 0 benzonatate [Tessalon Perles] 100 mg capsule 100 mg PO BID Qty: 14 RF: 0 vitamin B complex Tablet 1 tab PO DAILY RF: 0 levofloxacin 750 mg tablet 750 mg PO DAILY RF: 0 methylprednisolone [Medrol (Wilfredo)] 4 mg tablets,dose pack See Rx Instructions .ROUTE .COMPLEX Qty: 21 RF: 0 Discharge Orders: Discharge Order (Routine); Ordered 12/02/19 Ordered By: Cristobal Krishnamurthy Referrals: Ashley Medrano FNP [Primary Care Provider] - Discharge Diet: Usual diet Discharge Activity: Limit activity as instructed Discharge Date/Time: 12/02/19 17:09 Coding Level of Care Code ED Fire Prevention Captain for Chg Fwd Exam Comprehensive
[2019-12-02 16:49] LABS: Troponin 5 2HR 32.22 ng/L (0-15); Troponin 5 2HR Delta 0.22 ABS# (0-10)
[2019-12-02 17:08] VITALS: BP 158/68; PULSE 78; RESP 15; O2SAT 97
--- NOTE | 2019-12-02 18:01 | PC.NURSE ---
[facility] called for ride at 1737, [place] [id number]. [facility] transport called at 1744 and notified of pending ride, was told they will contact [facility] to accept the transport. Spoke with pt's at approx 1750 and updated her on pt DC and wait for transport. Pt sitting in WR and updated.
== END 2019-12-02 17:09 | disposition home or self-care (01) ==
PROVIDERS: Emergency Provider Family Medicine; PCP Nurse Practitioner Family
DX: R07.89 Other chest pain (principal); Z79.01 Long term (current) use of anticoagulants; I48.91 Unspecified atrial fibrillation; Z85.01 Personal history of malignant neoplasm of esophagus; I11.0 Hypertensive heart disease with heart failure; I50.9 Heart failure, unspecified; J44.9 Chronic obstructive pulmonary disease, unspecified; Z86.73 Personal history of transient ischemic attack (TIA), and cerebral infarction without residual deficits; E11.9 Type 2 diabetes mellitus without complications; E78.5 Hyperlipidemia, unspecified; G31.83 Neurocognitive disorder with Lewy bodies; F02.80 Dementia in other diseases classified elsewhere, unspecified severity, without behavioral disturbance, psychotic disturbance, mood disturbance, and anxiety; Z87.891 Personal history of nicotine dependence
CPT/HCPCS: 12345; 71045; 80053; 84484; 85025; 93005; 99282; 99283

== ENCOUNTER 2019-12-03 11:04 | Emergency (ER) | payer MEDICARE, MEDICAID, SELFPAY ==
[2019-12-03 11:10] VITALS: BP 139/71; PULSE 61; RESP 16; O2SAT 99
[2019-12-03 11:21] VITALS: BP 139/71; PULSE 72; RESP 16; O2SAT 99
--- NOTE | 2019-12-03 11:25 | ECG_ITS ---
[facility] Test Date: 2019-12-03 Pat Name: Willie Ram Department: Room: Gender: Male Dry Boss: : 1940 Requested By: Nicole Weiner I Order Number: [id number] Kevin MD: Ashley Bethea M.D. Measurements Intervals [place] Rate: 64 P: DE: -1 QRS: -8 QRSD: 109 T: 139 QT: 402 QTc: 417 Interpretive Statements ATRIAL FIBRILLATION WITH ABERRANT CONDUCTION OR VENTRICULAR PREMATURE COMPLEXES LOW QRS VOLTAGE IN PRECORDIAL LEADS [QRS DEFLECTION < 1.0 mV IN CHEST LEADS] INCOMPLETE RIGHT BUNDLE BRANCH BLOCK [90+ ms QRS DURATION, TERMINAL R IN V1/V2, 40+ ms S IN I/aVL/V4/V5/V6] NONSPECIFIC ST & T-WAVE ABNORMALITY Compared to ECG 12/02/2019 13:48:13 Ventricular premature complex(es) now present Aberrant conduction of supraventricular beat(s) now present Incomplete right bundle-branch block now present T-wave abnormality still present Electronically Signed On 12-03-2019 12:51:48 CDT by Ashley Bethea M.D. [id number]
--- NOTE | 2019-12-03 11:26 | ED_ITS ---
HPI - Extremity Problem General: Chief complaint: Extremity Problem,Nontraumatic Stated complaint: BACK PAIN Time Seen by Provider: 12/03/19 11:09 Source: patient Mode of arrival: EMS Limitations: no limitations History of Present Illness: HPI Narrative: Patient is a 78-year-old gentleman who is well-known to the emergency department with repeated chest pain complaints. Patient was seen here yesterday for the same thing and was evaluated and discharged home. Patient states that about 2 hours ago he developed left-sided chest pain that radiates to his back. Pain has currently resolved. He states that he does not want to go to the halfway and would like to be discharged home after his visits. MD Complaint: other (chest pain) Onset (ago): hour(s) (2) Pain Consistency: intermittent and now resolved Associated symptoms: Reports chest pain; Deny fever(s) or rash Review of Systems General: Reports: 10 or more systems reviewed and unremarkable except in HPI and below Const: Denies: fever(s), chills or body aches Eyes: Denies: change in vision or blurry vision ENMT: Denies: throat pain, enlarged tonsils, odynophagia, hoarseness, mouth pain or swelling of lips/tongue Card: Reports: chest pain; Denies: palpitations, irregular heart rhythm, edema or swelling of feet/ankles Resp: Denies: dyspnea, productive cough or non-productive cough GI: Denies: abdominal pain, nausea or vomiting : Denies: flank pain, dysuria, urinary frequency, urinary urgency or urinary hesitancy Musc: Reports: back pain; Denies: neck pain or extremity swelling Skin/Breast: Denies: rash, pruritus or erythema Neuro: Denies: headache(s), numbness in extremities or weakness in extremities Endo: Denies: polyuria, polydipsia or tired all the time PFS ED PFSH: Medical History (Updated 12/03/19 @ 13:03 by Nicole Weiner MD, [facility] [place] Acute alteration in mental status Anemia Anticoagulation adequate with anticoagulant therapy ASHD (arteriosclerotic heart disease) Atrial fibrillation was taken off anticoagulation due to GI bleed, has IVC filter Piper's esophagus BPH (benign prostatic hyperplasia) Carcinoma of esophagus radiation esophagitis CHF (congestive heart failure) CHF (congestive heart failure), NYHA class I COPD (chronic obstructive pulmonary disease) COPD exacerbation CVA (cerebral vascular accident) Diabetes Diarrhea Dyslipidemia (high LDL; low HDL) Essential hypertension Gait disturbance Lewy body dementia with behavioral disturbance NATALI (obstructive sleep apnea) Pneumonia Post laminectomy syndrome Pulmonary emboli Surgical History Roulette filter in place History of esophagogastroduodenoscopy (EGD) (07/24/19) resolution of Grade D esophagitis, no evidence of carcinoma Previous back surgery S/P angioplasty with stent S/P appendectomy S/P hernia repair S/P tonsillectomy CONSTRUCTION ADMINISTRATOR (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 Aicha Roche CONSTRUCTION ADMINISTRATOR shunt revision Family History Father CAD (coronary artery disease) Mother CAD (coronary artery disease) Hypertension Sister CAD (coronary artery disease) Diabetes Family/Other Stroke Denies family history of Anesthesia complication Bleeding disorder Social History Smoking and tobacco status: former smoker Quit status (tobacco): has quit using tobacco Alcohol intake: former Physical Exam Const: COMMON NORMALS: no acute distress, average body habitus, patient oriented x3, no limitations, healthy appearing, alert and well nourished HENMT: COMMON NORMALS: normocephalic, atraumatic and moist oral mucous membranes HEAD & SCALP: normocephalic and atraumatic Neck/C-Spine: COMMON NORMALS: full ROM, supple, no meningeal signs, no JVD and No carotid bruits Resp: COMMON NORMALS: normal respiratory effort, No retractions, No use of accessory muscles, clear to auscultation bilaterally and percussion normal AUSCULTATION: clear to auscultation bilaterally PERCUSSION: percussion normal Cardio: COMMON NORMALS: no JVD, regular rate, regular rhythm, S1 normal heart sound present, S2 normal heart sound present, No gallops present (Cardio), No clicks present (Cardio), No murmurs present (Cardio), No rub (Cardio) and Peripheral pulses 2+ throughout RATE: regular rate RHYTHM: regular rhythm HEART SOUNDS: S1 normal heart sound present and S2 normal heart sound present PERIPHERAL PULSES: Peripheral pulses 2+ throughout GI: COMMON NORMALS: Normal to inspection, nondistended, normoactive bowel sounds present, Soft to palpation, non-tender, No hepatosplenomegaly present, no masses and no bruits PALPATION: Yes Soft to palpation and Yes No hepatosplenomegaly present : COMMON NORMALS: Yes no CVA tenderness BLADDER/KIDNEY EXAM: Yes no CVA tenderness Back/Pelvis: COMMON NORMALS: no CVA tenderness Extremity: COMMON NORMALS: normal to inspection, full ROM, capillary refill normal, no calf tenderness and no pedal edema Neuro: COMMON NORMALS: patient oriented x3 SENSORIUM/ORIENTATION: Yes alert MENINGEAL SIGNS: Yes no meningeal signs Skin: COMMON NORMALS: no rashes or lesions noted, no wounds, turgor normal, no jaundice, no petechiae and no mottling GENERAL SKIN EXAM: no rashes or lesions noted and turgor normal Course 2 Reevaluation(s): Reevaluation #1: Discussed his lab and imaging findings with him. Negative for acute findings. Troponin essentially flat from yesterday. Chest x-ray negative. We will discharge him home with no new orders. He voiced understanding and is in agreement with the plan. Time: 13:02 Vital Signs: Vital signs: Vital Signs Pulse Rate 72 12/03/19 11:21 Respiratory Rate 16 12/03/19 11:21 Blood Pressure 139/71 12/03/19 11:21 Pulse Oximetry 99 12/03/19 11:21 MDM - Extremity (Nontraumatic) MDM Narrative: Medical decision making narrative: 78-year-old gentleman with symptoms consistent with noncardiac chest pain. Patient has been evaluated in this emergency department in the hospital several times for the same symptoms. Evaluation here is unremarkable with no significant changes. He is discharged home with no new orders. Medical Records: Attestation: I reviewed the patient's medical records. Lab Data: Attestation: I reviewed the patient's lab results. Labs: Lab Results 12/03/19 12/03/19 12/03/19 Range/Units 11:45 11:45 11:45 WBC 5.7 (4.0-10.0) 10^3/ uL RBC 4.71 (4.1-5.3) 10^6/u L Hgb 11.3 L (11.7-16.6) g/dL Hct 39.2 L (42.0-52.0) % MCV 83.2 (80-94) fL MCH 24.0 L (28.0-34.0) pg MCHC 28.8 L (30.0-36.0) g/dL RDW 15.5 H (12.1-15.1) % Plt Count 280 (130-400) 10^3/c mm MPV 10.2 (7.4-10.4) fL Neut % (Auto) 60.1 % Lymph % (Auto) 19.2 % [place] % (Auto) 10.5 % Eos % (Auto) 9.1 % Baso % (Auto) 0.9 % Neut # (Auto) 3.46 (1.8-7.7) 10^3/u L Lymph # (Auto) 1.1 (0.8-4.8) 10^3/u L [place] # (Auto) 0.6 (0.2-0.9) 10^3/u L Eos # (Auto) 0.5 (0.0-0.8) 10^3/u L Baso # (Auto) 0.1 (0.0-0.1) 10^3/u L Nucleated RBC % (a uto) 0 % Nucleated RBCs # 0.0 /100WBC Sodium 141 (136-145) mmol/L Potassium 4.1 (3.5-5.1) mmol/L Chloride 104 (98-107) mmol/L Carbon Dioxide 25 (22-29) mmol/L Anion Gap 16.1 (5-19) BUN 11 (8-23) mg/dL Creatinine 1.1 (0.7-1.2) mg/dL GFR Calculation Not Reportable Glucose 92 (65-115) mg/dL Calculated Osmolal ity 291 (285-295) mOsm/k g Calcium 9.1 (8.5-10.5) mg/dL Total Bilirubin 0.4 (0.15-1.2) mg/dL AST 15 (0-40) U/L ALT 13 (0-41) U/L Alkaline Phosphata se 83 (40-130) IU/L Troponin T Baselin e 35 H (0-15) ng/L NT-Pro-B Natriuret Pep 868 H (0-450) pg/mL Total Protein 6.8 (6.6-8.7) g/dL Albumin 4.6 (3.5-5.2) g/dL Globulin 2.2 (1.3-4.6) g/dL Lipase 44 (13-60) U/L Imaging Data^: CXR: Attestation: I personally reviewed and interpreted this imaging study as follows: Radiologist's impression: [address] [address] XRay Report Signed Patient: Willie Ram #: [id number] : 1Acct#:[id number] Age/Sex: 78 / MADM Date: 12/03/19 Loc: ERRoom/Bed: Attending Dr: Ordering Provider/Ordering MD: Nicole Weiner MD, [facility] [place] Date of Service: 12/03/19 Procedure(s): XR chest 1V portable [id number] Accession Number(s): [id number] Report Number: [id number] PROCEDURE INFORMATION: Exam: XR Chest, 1 View Exam date and time: 12/03/2019 11:38 AM Age: 78 years old Clinical indication: Chest pain; Type not specified; Additional info: Chest pain, back pain TECHNIQUE: Imaging protocol: XR of the chest Views: 1 view. COMPARISON: CR XR chest 1V portable [id number] 12/02/2019 1:18 PM FINDINGS: Lungs: Unremarkable. No consolidation. Pleural space: Unremarkable. No pleural effusion. No pneumothorax. Heart/Mediastinum: The heart is normal considering the patient rotation. There is tortuosity of the thoracic aorta. Bones/joints: Unremarkable. Soft tissues: A ventricular peritoneal shunt courses down the left side of the chest. XR/XR chest 1V portable [id number] IMPRESSION: No acute abnormalities are seen in the chest. Dictated By:Issac Mckeon Signed By:Sabrina Mckeon Date/Time:12/03/19 1207 DD/ 1206 EKG Data^: EKG 1: Attestation: I personally reviewed and interpreted this EKG as follows: EKG interpretation date: 12/03/19 EKG interpretation time: 11:59 Prior EKG tracings: available for review Interpretation: Atrial fibrillation. Heart rate 64 bpm. Incomplete right bundle branch block. Unchanged from EKG of yesterday. Discharge Plan Discharge Patient Disposition: Home Clinical Impression: Chest pain, non-cardiac Condition: Stable Prescriptions: Continued tamsulosin [Flomax] 0.4 mg capsule 0.4 mg PO DAILY RF: 0 risperidone 0.5 mg tablet 0.5 mg PO BID RF: 0 melatonin 5 mg capsule 5 - 10 mg PO BEDTIME RF: 0 ascorbate calcium (vitamin C) 500 mg tablet 500 mg PO DAILY RF: 0 furosemide 40 mg tablet 40 mg PO BID Qty: 180 RF: 1 potassium chloride 20 mEq tablet extended release 20 meq PO DAILY 90 Days Qty: 90 RF: 1 Eliquis 5 mg tablet 5 mg PO BID 90 Days Qty: 180 RF: 1 spironolactone 25 mg Tablet 25 mg PO DAILY RF: 0 sucralfate [Carafate] 100 mg/mL suspension See Rx Instructions .ROUTE .COMPLEX RF: 0 esomeprazole magnesium [Nexium] 40 mg capsule,delayed release(DR/EC) 40 mg PO DAILY RF: 0 benzonatate [Tessalon Perles] 100 mg capsule 100 mg PO BID Qty: 14 RF: 0 vitamin B complex Tablet 1 tab PO DAILY RF: 0 levofloxacin 750 mg tablet 750 mg PO DAILY RF: 0 methylprednisolone [Medrol (Wilfredo)] 4 mg tablets,dose pack See Rx Instructions .ROUTE .COMPLEX Qty: 21 RF: 0 Discharge Orders: Discharge Order (Routine); Ordered 12/03/19 Ordered By: Nicole Weiner Referrals: Ashley Medrano FNP [Primary Care Provider] - 1-3 days Discharge Diet: Usual diet Discharge Activity: Increase activity as tolerated Patient Instructions: Noncardiac Chest Pain (ED) Activity Restrictions/Additional Instructions: Return for any new or worsening symptoms. Follow-up with your primary care provider within 3 days. Continue home medications Coding Level of Care Code ED Terminal System Operator for Irma Fwd Exam Comprehensive
--- NOTE | 2019-12-03 11:29 | PC.NURSE ---
Pt given urinal, orange juice, and boxed lunch. Pt denies needs at this time, call light in reach.
[2019-12-03 11:53] LABS: Basophils # 0.1 10^3/uL (0.0-0.1); Basophils % 0.9 %; Eosinophils # 0.5 10^3/uL (0.0-0.8); Eosinophils % 9.1 %; Hematocrit 39.2 % (42.0-52.0); Hemoglobin 11.3 g/dL (11.7-16.6); Lymphocytes # 1.1 10^3/uL (0.8-4.8); Lymphocytes % 19.2 %; Mean Corpuscular HGB Conc 28.8 g/dL (30.0-36.0); Mean Corpuscular Volume 83.2 fL (80-94); Mean Platelet Volume 10.2 fL (7.4-10.4); Monocytes # 0.6 10^3/uL (0.2-0.9); Monocytes % 10.5 %; Neutrophils # 3.46 10^3/uL (1.8-7.7); Neutrophils % 60.1 %; Nucleated Red Blood Cells % 0 %; Platelet Count 280 10^3/cmm (130-400); Red Blood Count 4.71 10^6/uL (4.1-5.3); Red Cell Distribution Width 15.5 % (12.1-15.1); White Blood Count 5.7 10^3/uL (4.0-10.0)
[2019-12-03 12:18] LABS: Troponin(5th) Baseline 35 ng/L (0-15)
[2019-12-03 12:27] LABS: Alanine Aminotransferase 13 U/L (0-41); Albumin Level 4.6 g/dL (3.5-5.2); Alkaline Phosphatase 83 IU/L (40-130); Anion Gap 16.1 (5-19); Aspartate Amino Transferase 15 U/L (0-40); Blood Urea Nitrogen 11 mg/dL (8-23); Calcium 9.1 mg/dL (8.5-10.5); Carbon Dioxide 25 mmol/L (22-29); Chloride 104 mmol/L (98-107); Globulin 2.2 g/dL (1.3-4.6); Glucose 92 mg/dL (65-115); Lipase 44 U/L (13-60); NT Pro B Type Natriuretic Pept 868 pg/mL (0-450); Osmolality Calculated 291 mOsm/kg (285-295); Potassium 4.1 mmol/L (3.5-5.1); Sodium 141 mmol/L (136-145); Total Bilirubin 0.4 mg/dL (0.15-1.2); Total Protein 6.8 g/dL (6.6-8.7)
[2019-12-03 13:17] VITALS: BP 132/69; PULSE 77; RESP 20; O2SAT 98
== END 2019-12-03 13:19 | disposition home or self-care (01) ==
PROVIDERS: Emergency Provider Family Medicine; PCP Nurse Practitioner Family
DX: R07.89 Other chest pain (principal); Z79.01 Long term (current) use of anticoagulants; I48.91 Unspecified atrial fibrillation; Z85.01 Personal history of malignant neoplasm of esophagus; I11.0 Hypertensive heart disease with heart failure; I50.9 Heart failure, unspecified; J44.9 Chronic obstructive pulmonary disease, unspecified; Z86.73 Personal history of transient ischemic attack (TIA), and cerebral infarction without residual deficits; E11.9 Type 2 diabetes mellitus without complications; E78.5 Hyperlipidemia, unspecified; G31.83 Neurocognitive disorder with Lewy bodies; F02.80 Dementia in other diseases classified elsewhere, unspecified severity, without behavioral disturbance, psychotic disturbance, mood disturbance, and anxiety; Z87.891 Personal history of nicotine dependence
CPT/HCPCS: 12345; 71045; 80053; 83690; 83880; 84484; 85025; 93005; 99282; 99283

== ENCOUNTER 2019-12-07 17:50 | Emergency (ER) | payer MEDICARE, MEDICAID, SELFPAY ==
--- NOTE | 2019-12-07 17:51 | XRR_ITS ---
PROCEDURE INFORMATION: Exam: XR Chest, 1 View Exam date and time: 12/07/2019 6:15 PM Age: 79 years old Clinical indication: Chest pain; Type not specified; Additional info: Cp TECHNIQUE: Imaging protocol: XR of the chest Views: 1 view. COMPARISON: CR XR chest 1V portable [id number] 12/03/2019 11:33 AM FINDINGS: Tubes, catheters and devices: There is an unchanged satisfactory appearance of the visualized left-sided ventriculoperitoneal shunt catheter tubing. Lungs: The lungs are hyperinflated with unchanged mild fibrosis. No consolidation. Pleural space: Unremarkable. No pleural effusion. No pneumothorax. Heart/Mediastinum: There is cardiomegaly. Bones/joints: No acute abnormality. XR/XR chest 1V portable [id number] IMPRESSION: No acute findings. Unchanged exam.
[2019-12-07 18:12] VITALS: BP 133/84; PULSE 75; RESP 18; TEMP 37.1; O2SAT 100; BMI 30.3
[2019-12-07 18:19] VITALS: BP 133/84; PULSE 76; RESP 18; O2SAT 100
[2019-12-07 18:36] LABS: Basophils # 0.1 10^3/uL (0.0-0.1); Basophils % 0.9 %; Eosinophils # 0.6 10^3/uL (0.0-0.8); Eosinophils % 9.4 %; Hematocrit 38.7 % (42.0-52.0); Hemoglobin 11.1 g/dL (11.7-16.6); Lymphocytes # 1.3 10^3/uL (0.8-4.8); Lymphocytes % 18.6 %; Mean Corpuscular HGB Conc 28.7 g/dL (30.0-36.0); Mean Corpuscular Hemoglobin 24.3 pg (28.0-34.0); Mean Corpuscular Volume 84.7 fL (80-94); Mean Platelet Volume 10.6 fL (7.4-10.4); Monocytes # 0.8 10^3/uL (0.2-0.9); Monocytes % 12.1 %; Neutrophils # 3.99 10^3/uL (1.8-7.7); Neutrophils % 58.7 %; Nucleated Red Blood Cells % 0 %; Platelet Count 273 10^3/cmm (130-400); Red Blood Count 4.57 10^6/uL (4.1-5.3); Red Cell Distribution Width 15.5 % (12.1-15.1); White Blood Count 6.8 10^3/uL (4.0-10.0)
[2019-12-07 18:52] LABS: Alanine Aminotransferase 15 U/L (0-41); Albumin Level 4.5 g/dL (3.5-5.2); Alkaline Phosphatase 92 IU/L (40-130); Anion Gap 16.8 (5-19); Aspartate Amino Transferase 17 U/L (0-40); Blood Urea Nitrogen 12 mg/dL (8-23); Calcium 8.9 mg/dL (8.5-10.5); Carbon Dioxide 24 mmol/L (22-29); Chloride 105 mmol/L (98-107); Globulin 2.3 g/dL (1.3-4.6); Glucose 90 mg/dL (65-115); Osmolality Calculated 293 mOsm/kg (285-295); Potassium 3.8 mmol/L (3.5-5.1); Sodium 142 mmol/L (136-145); Total Bilirubin 0.2 mg/dL (0.15-1.2); Total Protein 6.8 g/dL (6.6-8.7)
[2019-12-07 18:54] LABS: Troponin(5th) Baseline 29 ng/L (0-15)
--- NOTE | 2019-12-07 19:00 | PC.NURSE ---
patient report received from NARGIS Rebollar and care transferred to NARGIS Mitchell
[2019-12-07 19:41] VITALS: RESP 16; O2SAT 100
[2019-12-07] MEDS: ketorolac 30 mg/mL INJ 15 MG IVP (19:41)
[2019-12-07] MEDS: morphine 4 mg/mL SDV 1 mL IVP (19:41)
[2019-12-07 20:44] VITALS: BP 136/86; PULSE 80; O2SAT 100
[2019-12-07 20:46] VITALS: BP 148/96; PULSE 80; RESP 16; O2SAT 100
--- NOTE | 2019-12-07 22:04 | W.ED.CHESTPA ---
HPI - Chest Pain General: Chief Complaint: Chest Pain Stated Complaint: CHEST PAIN Time Seen by Provider: 12/07/19 17:52 History of Present Illness: HPI narrative: 79-year-old male here nearly every other day now for chest pain. He complains as he complains most of the time of left-sided pain that radiates into his back. He is a bit short of breath. He says he has been coughing. No fever. The patient has dementia, and tends to call an ambulance to come in for chest pain when he gets upset at home. MD complaint: chest pain Pertinent past history: coronary artery disease Onset (ago): hour(s) Timing of current episode: episodic Prior episodes: Yes Onset: during rest Pain location: left chest Pain radiation: back Quality: heaviness and sharp Relieving factors: nothing Exacerbating factors: nothing Associated symptoms: Reports dyspnea and leg edema (Mild); Deny diaphoresis, fever(s), nausea, palpitations or vomiting Review of Systems Const: Denies: fever(s) or diaphoresis Eyes: Denies: change in vision ENMT: Reports: odynophagia; Denies: bleeding gums, dental pain or sinus pain Card: Reports: chest pain; Denies: palpitations or irregular heart rhythm Resp: Reports: dyspnea GI: Denies: nausea or vomiting : Denies: difficulty urinating or hematuria Musc: Reports: back pain; Denies: neck pain or joint warmth Skin/Breast: Denies: rash, pruritus or erythema Neuro: Denies: headache(s), dizziness or vertigo Psych: Denies: anxiety PFS ED PFSH: Medical History (Updated 12/07/19 @ 19:27 by Arnoldo Espinoza DO) Acute alteration in mental status Anemia Anticoagulation adequate with anticoagulant therapy ASHD (arteriosclerotic heart disease) Atrial fibrillation was taken off anticoagulation due to GI bleed, has IVC filter Piper's esophagus BPH (benign prostatic hyperplasia) Carcinoma of esophagus radiation esophagitis CHF (congestive heart failure) CHF (congestive heart failure), NYHA class I COPD (chronic obstructive pulmonary disease) COPD exacerbation CVA (cerebral vascular accident) Diabetes Diarrhea Dyslipidemia (high LDL; low HDL) Essential hypertension Gait disturbance Lewy body dementia with behavioral disturbance NATALI (obstructive sleep apnea) Pneumonia Post laminectomy syndrome Pulmonary emboli Surgical History Trip filter in place History of esophagogastroduodenoscopy (EGD) (07/24/19) resolution of Grade D esophagitis, no evidence of carcinoma Previous back surgery S/P angioplasty with stent S/P appendectomy S/P hernia repair S/P tonsillectomy 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 Aicha Roche VOCATIONAL REHABILITATION SPECIALIST shunt revision Family History Father CAD (coronary artery disease) Mother CAD (coronary artery disease) Hypertension Sister CAD (coronary artery disease) Diabetes Family/Other Stroke Denies family history of Anesthesia complication Bleeding disorder Social History Smoking and tobacco status: former smoker Quit status (tobacco): has quit using tobacco Alcohol intake: former Physical Exam Const: GENERAL APPEARANCE: well developed ORIENTATION/CONSCIOUSNESS: Yes oriented to person, Yes oriented to place and Yes oriented to time HENMT: COMMON NORMALS: normocephalic, external ears normal and Normal external nose present HEAD & SCALP: normocephalic; no scalp tenderness FACE & SINUS: normal facial exam NOSE: Normal external nose present and No nasal discharge present EXTERNAL EAR: Yes external ears normal Eye: COMMON NORMALS: Equal, round and reactive pupils present, EOMs intact bilaterally and conjunctivae normal EYELID: eyelids normal CONJUNCTIVA: Yes conjunctivae normal PUPIL: Yes Equal, round and reactive pupils present Neck/C-Spine: GENERAL: No tracheal deviation Chest: COMMONS NORMALS: normal inspection of the chest CHEST: No tenderness Resp: COMMON NORMALS: clear to auscultation bilaterally EFFORT & INSPECTION: No tachypneic, No respiratory distress and No retractions AUSCULTATION: clear to auscultation bilaterally, no rhonchi and no wheezes Cardio: COMMON NORMALS: regular rate and regular rhythm RATE: regular rate RHYTHM: regular rhythm HEART SOUNDS: no murmurs PERIPHERAL PULSES: radial pulses present GI: INSPECTION: No abdominal distension AUSCULTATION: No Hyperactive bowel sounds present and No Hypoactive bowel sounds present PALPATION: No Guarding due to palpation present (GI) and No Rigid due to palpation PERCUSSION: no dullness to percussion and no tympanic to percussion Neuro: SENSORIUM/ORIENTATION: Yes oriented to person, Yes oriented to place and Yes oriented to time Psych: COMMON NORMALS: mental status grossly normal Skin: COMMON NORMALS: no rashes or lesions noted GENERAL SKIN EXAM: no rashes or lesions noted Course Vital Signs: Vital signs: Vital Signs Temperature 98.7 F 12/07/19 18:12 Pulse Rate 80 12/07/19 20:46 Respiratory Rate 16 12/07/19 20:46 Blood Pressure 148/96 12/07/19 20:46 Pulse Oximetry 100 12/07/19 20:46 MDM - Chest Pain MDM Narrative: Medical decision making narrative: 79-year-old male here with chest discomfort. He states that he wants to go home soon after I examined him. His first troponin is at his baseline. His creatinine is 1.4 which is his baseline. His chest x-ray is negative. We will allow Willie home. Lab Data: Labs: Lab Results 12/07/19 12/07/19 12/07/19 Range/Units 18:25 18:25 18:25 WBC 6.8 (4.0-10.0) 10^3/ uL RBC 4.57 (4.1-5.3) 10^6/u L Hgb 11.1 L (11.7-16.6) g/dL Hct 38.7 L (42.0-52.0) % MCV 84.7 (80-94) fL MCH 24.3 L (28.0-34.0) pg MCHC 28.7 L (30.0-36.0) g/dL RDW 15.5 H (12.1-15.1) % Plt Count 273 (130-400) 10^3/c mm MPV 10.6 H (7.4-10.4) fL Neut % (Auto) 58.7 % Lymph % (Auto) 18.6 % [place] % (Auto) 12.1 % Eos % (Auto) 9.4 % Baso % (Auto) 0.9 % Neut # (Auto) 3.99 (1.8-7.7) 10^3/u L Lymph # (Auto) 1.3 (0.8-4.8) 10^3/u L [place] # (Auto) 0.8 (0.2-0.9) 10^3/u L Eos # (Auto) 0.6 (0.0-0.8) 10^3/u L Baso # (Auto) 0.1 (0.0-0.1) 10^3/u L Nucleated RBC % (a uto) 0 % Nucleated RBCs # 0.0 /100WBC Sodium 142 (136-145) mmol/L Potassium 3.8 (3.5-5.1) mmol/L Chloride 105 (98-107) mmol/L Carbon Dioxide 24 (22-29) mmol/L Anion Gap 16.8 (5-19) BUN 12 (8-23) mg/dL Creatinine 1.4 H (0.7-1.2) mg/dL GFR Calculation Not Reportable Glucose 90 (65-115) mg/dL Calculated Osmolal ity 293 (285-295) mOsm/k g Calcium 8.9 (8.5-10.5) mg/dL Total Bilirubin 0.2 (0.15-1.2) mg/dL AST 17 (0-40) U/L ALT 15 (0-41) U/L Alkaline Phosphata se 92 (40-130) IU/L Troponin T Baselin e 29 H (0-15) ng/L Total Protein 6.8 (6.6-8.7) g/dL Albumin 4.5 (3.5-5.2) g/dL Globulin 2.3 (1.3-4.6) g/dL Discharge Plan Discharge Patient Disposition: Home Clinical Impression: Chest pain Qualifiers: Chest pain type: unspecified Qualified Code(s): R07.9 - Chest pain, unspecified Condition: Stable Prescriptions: No Action tamsulosin [Flomax] 0.4 mg capsule 0.4 mg PO DAILY RF: 0 risperidone 0.5 mg tablet 0.5 mg PO BID RF: 0 melatonin 5 mg capsule 5 - 10 mg PO BEDTIME RF: 0 ascorbate calcium (vitamin C) 500 mg tablet 500 mg PO DAILY RF: 0 furosemide 40 mg tablet 40 mg PO BID Qty: 180 RF: 1 potassium chloride 20 mEq tablet extended release 20 meq PO DAILY 90 Days Qty: 90 RF: 1 Eliquis 5 mg tablet 5 mg PO BID 90 Days Qty: 180 RF: 1 spironolactone 25 mg Tablet 25 mg PO DAILY RF: 0 sucralfate [Carafate] 100 mg/mL suspension See Rx Instructions .ROUTE .COMPLEX RF: 0 esomeprazole magnesium [Nexium] 40 mg capsule,delayed release(DR/EC) 40 mg PO DAILY RF: 0 benzonatate [Tessalon Perles] 100 mg capsule 100 mg PO BID Qty: 14 RF: 0 vitamin B complex Tablet 1 tab PO DAILY RF: 0 levofloxacin 750 mg tablet 750 mg PO DAILY RF: 0 methylprednisolone [Medrol (Wilfredo)] 4 mg tablets,dose pack See Rx Instructions .ROUTE .COMPLEX Qty: 21 RF: 0 Discharge Orders: Discharge Order (Routine); Ordered 12/07/19 Ordered By: Arnoldo Espinoza Referrals: Ashley Medrano FNP [Primary Care Provider] - Discharge Diet: Advance as tolerated Discharge Activity: Increase activity as tolerated Patient Instructions: Chest Pain (ED) Activity Restrictions/Additional Instructions: You should consider an increased level of care either at home or in a skilled facility. Discharge Date/Time: 12/07/19 20:47 Coding Level of Care Code ED Track Service Person for Irma Fwd Exam Comprehensive
--- NOTE | 2019-12-07 23:51 | ECG_ITS ---
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 Measurements Intervals [place] Rate: 76 P: RI: -1 QRS: -24 QRSD: 102 T: 62 QT: 406 QTc: 458 Interpretive Statements ATRIAL FIBRILLATION BORDERLINE LEFT AXIS DEVIATION [QRS AXIS < -20] LOW QRS VOLTAGE IN PRECORDIAL LEADS [QRS DEFLECTION < 1.0 mV IN CHEST LEADS] INCOMPLETE RIGHT BUNDLE BRANCH BLOCK [90+ ms QRS DURATION, TERMINAL R IN V1/V2, 40+ ms S IN I/aVL/V4/V5/V6] NONSPECIFIC ST & T-WAVE ABNORMALITY Compared to ECG 12/03/2019 11:59:51 Ventricular premature complex(es) no longer present Aberrant conduction of supraventricular beat(s) no longer present T-wave abnormality still present Electronically Signed On 12-09-2019 7:39:55 CDT by Ashley Bethea M.D. [email or web address]
== END 2019-12-07 20:47 | disposition home or self-care (01) ==
PROVIDERS: Emergency Medicine; Emergency Provider Emergency Medicine; PCP Nurse Practitioner Family
DX: R07.9 Chest pain, unspecified (principal); Z79.01 Long term (current) use of anticoagulants; I48.91 Unspecified atrial fibrillation; Z85.01 Personal history of malignant neoplasm of esophagus; I11.0 Hypertensive heart disease with heart failure; I50.9 Heart failure, unspecified; J44.9 Chronic obstructive pulmonary disease, unspecified; Z86.73 Personal history of transient ischemic attack (TIA), and cerebral infarction without residual deficits; E11.9 Type 2 diabetes mellitus without complications; E78.5 Hyperlipidemia, unspecified; G31.83 Neurocognitive disorder with Lewy bodies; F02.80 Dementia in other diseases classified elsewhere, unspecified severity, without behavioral disturbance, psychotic disturbance, mood disturbance, and anxiety; Z87.891 Personal history of nicotine dependence
CPT/HCPCS: 12345; 71045; 80053; 84484; 85025; 93005; 96374; 96375; 99283; J1885; J2270

== ENCOUNTER 2019-12-08 19:17 | Emergency (ER) | payer MEDICARE, MEDICAID, SELFPAY ==
[2019-12-08 19:18] VITALS: BP 148/83; PULSE 80; RESP 17; TEMP 36.9; O2SAT 98; BMI 26.4
--- NOTE | 2019-12-08 19:21 | XR_ITS ---
WS: [id number] Exam: XR chest 1V portable [id number] Date/Time of Exam: 12/08/2019 8:20 PM Reason For Exam: Chest pain Findings: Comparison 12/07/2019. The lungs are hyperinflated and clear. Mild chronic interstitial changes. Mild cardiac enlargement wi th signs of the coronary artery stenting. The mediastinum is not widened. No pleural effusion. A left -sided TRAFFIC OPERATIONS ENGINEER shunt catheter is noted unchanged in appearance. XR/XR chest 1V portable [id number] IMPRESSION: 1. No acute cardiopulmonary finding. No change.
--- NOTE | 2019-12-08 19:22 | ECG_ITS ---
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 Measurements Intervals [place] Rate: 79 P: [place]: -1 QRS: -13 QRSD: 90 T: 88 QT: 379 QTc: 436 Interpretive Statements ATRIAL FIBRILLATION LOW QRS VOLTAGE IN PRECORDIAL LEADS [QRS DEFLECTION < 1.0 mV IN CHEST LEADS] POSSIBLE RIGHT VENTRICULAR CONDUCTION DELAY [RSR (QR) IN V1/V2] NONSPECIFIC T-WAVE ABNORMALITY Compared to ECG 12/07/2019 18:06:40 Incomplete right bundle-branch block no longer present T-wave abnormality still present Electronically Signed On 12-09-2019 7:16:44 CDT by Ashley Bethea M.D. [id number]
--- NOTE | 2019-12-08 19:23 | ED_ITS ---
HPI - Chest Pain General: Chief Complaint: Chest Pain Stated Complaint: CHEST PAIN Time Seen by Provider: 12/08/19 19:17 Source: patient and EMS Mode of arrival: EMS Limitations: no limitations History of Present Illness: HPI narrative: Willie is a very nice 79-year-old male well-known to me who comes in by EMS for chest pain. Patient has been here multiple times in the past for similar complaints. Patient does have a history of atrial fibrillation and heart disease and typically will come in with pain in and then after he is told his labs and EKGs are at his baseline he abruptly wants to leave. Today he states his pain is been a dull ache in his chest is been constant since 8 AM but he will have occasional sharp pains. The sharp pains are sporadic and cannot be elicited by pressing on his chest, certain positions or with any activity. Sharp pains been very few and infrequent. He does not describe any radiation of his pain, nausea or vomiting, shortness of breath, diaphoresis, exertional worsening of his pain and he is unaware of anything that makes his pain better. Patient states this is the typical type of chest pain he has been getting here more recently. Patient does not relate that he is followed up with his doctor or maxillofacial prosthodontist concerning this ongoing problem with chest pain. Associated symptoms: Deny abdominal pain, diaphoresis, dyspnea, fever(s), nausea, palpitations, syncope or vomiting Review of Systems Const: Denies: fever(s), chills, body aches, fatigue, malaise or diaphoresis Eyes: Denies: change in vision, blurry vision, photophobia, eye discomfort, eye discharge, eye redness or yellow eyes ENMT: Denies: throat pain, odynophagia, hoarseness, swelling of lips/tongue, ear or mastoid pain, ear discharge, change in hearing or nasal discharge Card: Reports: chest pain; Denies: palpitations, irregular heart rhythm, edema, lightheadedness, syncope, pre-syncope, dyspnea on exertion or orthopnea Resp: Denies: dyspnea, productive cough, non-productive cough, wheezing, hemoptysis or chest congestion GI: Denies: abdominal pain, nausea, vomiting, hematemesis, coffee ground e mesis, heartburn, diarrhea, constipation, GI cramping, hematochezia or melena : Denies: flank pain, dysuria, urinary frequency, urinary urgency or hematuria Musc: Denies: neck pain, back pain, extremity pain, extremity swelling, joint pain, joint swelling, joint redness, joint warmth or joint stiffness Skin/Breast: Denies: rash, pruritus, erythema, skin pain or skin tenderness Neuro: Denies: headache(s), numbness in extremities, weakness in extremities, sensory changes, lack of coordination, difficulty walking, dizziness, vertigo, confusion, Slurred speech present or seizure-like activity Grant/Lymph: Denies: easy bruising, easy bleeding, petechiae, purpura or enlarged lymph nodes All/Imm: Denies: urticaria, throat swelling, tongue swelling, facial swelling or acute wheezing PFSH ED PFSH: Medical History (Updated 12/08/19 @ 20:49 by Jaci Leger) Anemia Anticoagulation adequate with anticoagulant therapy ASHD (arteriosclerotic heart disease) Atrial fibrillation was taken off anticoagulation due to GI bleed, has IVC filter Piper's esophagus BPH (benign prostatic hyperplasia) Carcinoma of esophagus radiation esophagitis CHF (congestive heart failure) CHF (congestive heart failure), NYHA class I COPD (chronic obstructive pulmonary disease) CVA (cerebral vascular accident) Diabetes Dyslipidemia (high LDL; low HDL) Essential hypertension Gait disturbance Lewy body dementia with behavioral disturbance NATALI (obstructive sleep apnea) Pneumonia Post laminectomy syndrome Pulmonary emboli Surgical History [place] filter in place History of esophagogastroduodenoscopy (EGD) (07/24/19) resolution of Grade D esophagitis, no evidence of carcinoma Previous back surgery S/P angioplasty with stent S/P appendectomy S/P hernia repair S/P tonsillectomy DIRECTOR OF MANAGED CARE (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 Aicha oRche DIRECTOR OF MANAGED CARE shunt revision Family History Father CAD (coronary artery disease) Mother CAD (coronary artery disease) Hypertension Sister CAD (coronary artery disease) Diabetes Family/Other Stroke Denies family history of Anesthesia complication Bleeding disorder Social History Smoking and tobacco status: former smoker Quit status (tobacco): has quit using tobacco Alcohol intake: former Physical Exam Const: COMMON NORMALS: no acute distress, patient oriented x3, no limitations and alert GENERAL APPEARANCE: cooperative HENMT: COMMON NORMALS: normocephalic, atraumatic, external ears normal, EAC's normal and Normal external nose present HEAD & SCALP: normal to inspection, normocephalic and atraumatic FACE & SINUS: normal facial exam and face symmetric NOSE: Normal external nose present and Normal nares present EXTERNAL EAR: Yes external ears normal EXTERNAL AUDITORY CANAL: EAC's normal MOUTH: Normal oral and palatal mucosa present, lip normal and tongue normal Eye: COMMON NORMALS: Equal, round and reactive pupils present and conjunctivae normal GENERAL EYE: appearance normal, both eyes and all related structures ALIGNMENT: Yes alignment normal PERIORBITAL: periorbital findings normal EYELID: eyelids normal CONJUNCTIVA: Yes conjunctivae normal SCLERA: sclerae normal PUPIL: Yes Equal, round and reactive pupils present Neck/C-Spine: COMMON NORMALS: full ROM, no lymphadenopathy, supple, no meningeal signs and no JVD GENERAL: Yes normal visual inspection and Yes trachea midline Chest: COMMONS NORMALS: normal inspection of the chest and normal palpation of entire chest wall Resp: COMMON NORMALS: normal respiratory effort, No retractions, No use of accessory muscles and clear to auscultation bilaterally EFFORT & INSPECTION: Yes able to speak in complete sentences and Yes symmetric chest movement AUSCULTATION: clear to auscultation bilaterally, no crackles, no rales, no rhonchi and no wheezes Cardio: COMMON NORMALS: no JVD, regular rate, regular rhythm, S1 normal heart sound present and S2 normal heart sound present RATE: regular rate RHYTHM: regular rhythm HEART SOUNDS: S1 normal heart sound present, S2 normal heart sound present, no click, no gallops, no murmurs and no rubs GI: COMMON NORMALS: Soft to palpation and No hepatosplenomegaly present PALPATION: Yes Soft to palpation, No Tenderness to palpation present (GI), No Guarding due to palpation present (GI), No Rigid due to palpation, Yes No hepatosplenomegaly present, No Hernia present, No Palpable mass present and No Pulsatile mass present : COMMON NORMALS: Yes no CVA tenderness BLADDER/KIDNEY EXAM: Yes no CVA tenderness Back/Pelvis: COMMON NORMALS: no CVA tenderness, thoracic and lumbar spine normal to inspection, no thoracic nor lumbar tenderness and thoraco-lumbar ROM normal Extremity: COMMON NORMALS: normal to inspection, full ROM, capillary refill normal, no joint enlargement, no clubbing, cyanosis or edema and no calf tenderness Neuro: COMMON NORMALS: patient oriented x3, CN's II-XII intact bilaterally, moves all extremities, no focal motor deficits and no sensory deficits noted SENSORIUM/ORIENTATION: Yes alert MENINGEAL SIGNS: Yes no meningeal signs SPEECH: speech normal Psych: COMMON NORMALS: mental status grossly normal, Normal thought process present, cooperative, normal affect, speech normal and activity/motor behavior normal SPEECH: Yes normal speech THOUGHT PROCESS: Normal thought process present Skin: COMMON NORMALS: no rashes or lesions noted, turgor normal, no jaundice, no petechiae and no mottling GENERAL SKIN EXAM: no rashes or lesions noted and turgor normal Course ED course: 1927 -review of patient's medical record shows that he was here yesterday for chest pain. At that time his pain was described slightly different but within his normal realm of complaints. His work-up was unremarkable and the patient was discharged home per his request. 2017 -Willie states now that he has 0 out of 10 pain. He states that his pain has been constant all day but now after 1 g of IV Tylenol his pain is completely subsided. 2042 -Willie is insisting upon leaving at this time. He states his pain is gone and he wants to go home. He is asking nurses to call for his or for a ride to come pick him up. Vital Signs: Vital signs: Vital Signs Temperature 98.2 F 12/08/19 21:06 Pulse Rate 83 12/08/19 21:06 Respiratory Rate 17 12/08/19 21:06 Blood Pressure 126/67 12/08/19 21:06 Pulse Oximetry 93 12/08/19 21:06 MDM - Chest Pain MDM Narrative: Medical decision making narrative: 2056 -Willie is a nice 79-year-old male who comes in complaining of chest pain. His chest pain was constant all day with occasional sharp pains. Patient is already on Eliquis for his previous PEs and also has a IVC filter in place. His pain relieved here with 1 dose of IV Tylenol. Patient upon hearing his EKG is unchanged from normal and his troponin is in its normal range he insisted on going home. Willie does this very often and is noted to become irate and agitated if he does not get to leave after a short time here. I reviewed the results of his test with his Esme Ram by phone and she is aware of the situation. She states she is currently try to get the patient into a correction, against his will, and is currently waiting on final approval. She understands that the patient wants to go home and she states she is okay with that she try to get him from coming today but she finds that at times it is best to leave his anxieties and he does better with that. I will go and discharge the patient home per his wishes. Currently has capacity to make this decision and shows no sign of impairment at this time. Lab Data: Labs: Lab Results 12/08/19 12/08/19 12/08/19 Range/Units 19:34 19:34 19:34 WBC 6.5 (4.0-10.0) 10^3/ uL RBC 4.31 (4.1-5.3) 10^6/u L Hgb 10.4 L (11.7-16.6) g/dL Hct 35.6 L (42.0-52.0) % MCV 82.6 (80-94) fL MCH 24.1 L (28.0-34.0) pg MCHC 29.2 L (30.0-36.0) g/dL RDW 15.5 H (12.1-15.1) % Plt Count 258 (130-400) 10^3/c mm MPV 10.4 (7.4-10.4) fL Neut % (Auto) 60.1 % Lymph % (Auto) 19.2 % [place] % (Auto) 10.2 % Eos % (Auto) 9.6 % Baso % (Auto) 0.6 % Neut # (Auto) 3.89 (1.8-7.7) 10^3/u L Lymph # (Auto) 1.2 (0.8-4.8) 10^3/u L [place] # (Auto) 0.7 (0.2-0.9) 10^3/u L Eos # (Auto) 0.6 (0.0-0.8) 10^3/u L Baso # (Auto) 0.0 (0.0-0.1) 10^3/u L Nucleated RBC % (a uto) 0 % Nucleated RBCs # 0.0 /100WBC PT 15.40 H (12.1-14.9) SECO NDS INR 1.18 (0.8-1.2) APTT 30.0 (23.9-36.7) SECO NDS Sodium 140 (136-145) mmol/L Potassium 4.1 (3.5-5.1) mmol/L Chloride 103 (98-107) mmol/L Carbon Dioxide 25 (22-29) mmol/L Anion Gap 16.1 (5-19) BUN 13 (8-23) mg/dL Creatinine 1.5 H (0.7-1.2) mg/dL GFR Calculation Not Reportable Glucose 99 (65-115) mg/dL Calculated Osmolal ity 290 (285-295) mOsm/k g Calcium 8.6 (8.5-10.5) mg/dL Magnesium 2.1 (1.7-2.3) mg/dL Total Bilirubin 0.2 (0.15-1.2) mg/dL AST 17 (0-40) U/L ALT 15 (0-41) U/L Alkaline Phosphata se 86 (40-130) IU/L Troponin T Baselin e (0-15) ng/L NT-Pro-B Natriuret Pep 771 H (0-450) pg/mL Total Protein 6.4 L (6.6-8.7) g/dL Albumin 4.2 (3.5-5.2) g/dL Globulin 2.2 (1.3-4.6) g/dL Lipase 42 (13-60) U/L Urine Color (Yellow) Urine Appearance (CLEAR) Urine pH (5-7) Ur Specific Gravit y (1.005-1.030) Urine Protein (Negative) Urine Glucose (UA) (Normal) Urine Ketones (Negative) Urine Blood (Negative) Urine Nitrate (Negative) Urine Bilirubin (Negative) Urine Urobilinogen (Negative) mg/dL Ur Leukocyte Erica ase (Negative) 12/08/19 12/08/19 Range/Units 19:34 20:30 WBC (4.0-10.0) 10^3/ uL RBC (4.1-5.3) 10^6/u L Hgb (11.7-16.6) g/dL Hct (42.0-52.0) % MCV (80-94) fL MCH (28.0-34.0) pg MCHC (30.0-36.0) g/dL RDW (12.1-15.1) % Plt Count (130-400) 10^3/c mm MPV (7.4-10.4) fL Neut % (Auto) % Lymph % (Auto) % [place] % (Auto) % Eos % (Auto) % Baso % (Auto) % Neut # (Auto) (1.8-7.7) 10^3/u L Lymph # (Auto) (0.8-4.8) 10^3/u L [place] # (Auto) (0.2-0.9) 10^3/u L Eos # (Auto) (0.0-0.8) 10^3/u L Baso # (Auto) (0.0-0.1) 10^3/u L Nucleated RBC % (a uto) % Nucleated RBCs # /100WBC PT (12.1-14.9) SECO NDS INR (0.8-1.2) APTT (23.9-36.7) SECO NDS Sodium (136-145) mmol/L Potassium (3.5-5.1) mmol/L Chloride (98-107) mmol/L Carbon Dioxide (22-29) mmol/L Anion Gap (5-19) BUN (8-23) mg/dL Creatinine (0.7-1.2) mg/dL GFR Calculation Glucose (65-115) mg/dL Calculated Osmolal ity (285-295) mOsm/k g Calcium (8.5-10.5) mg/dL Magnesium (1.7-2.3) mg/dL Total Bilirubin (0.15-1.2) mg/dL AST (0-40) U/L ALT (0-41) U/L Alkaline Phosphata se (40-130) IU/L Troponin T Baselin e 33 H (0-15) ng/L NT-Pro-B Natriuret Pep (0-450) pg/mL Total Protein (6.6-8.7) g/dL Albumin (3.5-5.2) g/dL Globulin (1.3-4.6) g/dL Lipase (13-60) U/L Urine Color Yellow (Yellow) Urine Appearance Clear (CLEAR) Urine pH 5.0 (5-7) Ur Specific Gravit y 1.015 (1.005-1.030) Urine Protein Neg (Negative) Urine Glucose (UA) Norm (Normal) Urine Ketones Negative (Negative) Urine Blood Neg (Negative) Urine Nitrate Negative (Negative) Urine Bilirubin Neg (Negative) Urine Urobilinogen Norm (Negative) mg/dL Ur Leukocyte Erica ase Negative (Negative) EKG Data^: EKG 1: Attestation: I personally reviewed and interpreted this EKG as follows: EKG interpretation date: 12/08/19 EKG interpretation time: 19:26 Interpretation: Atrial fibrillation with a ventricular rate of 79 beats a minute, left axis deviation, otherwise normal intervals, no acute ST or T wave changes. Unchanged from previous. Discharge Plan Discharge Patient Disposition: Home Clinical Impression: Chest pain Qualifiers: Chest pain type: unspecified Qualified Code(s): R07.9 - Chest pain, unspecified Condition: Stable Prescriptions: No Action tamsulosin [Flomax] 0.4 mg capsule 0.4 mg PO DAILY RF: 0 risperidone 0.5 mg tablet 0.5 mg PO BID RF: 0 melatonin 5 mg capsule 5 - 10 mg PO BEDTIME RF: 0 ascorbate calcium (vitamin C) 500 mg tablet 500 mg PO DAILY RF: 0 furosemide 40 mg tablet 40 mg PO BID Qty: 180 RF: 1 potassium chloride 20 mEq tablet extended release 20 meq PO DAILY 90 Days Qty: 90 RF: 1 Eliquis 5 mg tablet 5 mg PO BID 90 Days Qty: 180 RF: 1 spironolactone 25 mg Tablet 25 mg PO DAILY RF: 0 sucralfate [Carafate] 100 mg/mL suspension See Rx Instructions .ROUTE .COMPLEX RF: 0 esomeprazole magnesium [Nexium] 40 mg capsule,delayed release(DR/EC) 40 mg PO DAILY RF: 0 benzonatate [Tessalon Perles] 100 mg capsule 100 mg PO BID Qty: 14 RF: 0 vitamin B complex Tablet 1 tab PO DAILY RF: 0 levofloxacin 750 mg tablet 750 mg PO DAILY RF: 0 methylprednisolone [Medrol (Wilfredo)] 4 mg tablets,dose pack See Rx Instructions .ROUTE .COMPLEX Qty: 21 RF: 0 Discharge Orders: Discharge Order (Routine); Ordered 12/08/19 Ordered By: Jaci Leger Referrals: Ashley Medrano FNP [Primary Care Provider] - 1-3 days Discharge Diet: Advance as tolerated Discharge Activity: Increase activity as tolerated Patient Instructions: Chest Pain (ED) Activity Restrictions/Additional Instructions: You're leaving AGAINST MEDICAL ADVICE and are at risk for or severe permanent disability by doing so. You are more than welcome to return at any time for recheck and for further evaluation and care suture change you change your mind. Discharge Date/Time: 12/08/19 22:26 Coding Level of Care Code ED Numerical Control Programmer for Chg Fwd Exam Comprehensive
[2019-12-08 19:50] LABS: Basophils % 0.6 %; Eosinophils # 0.6 10^3/uL (0.0-0.8); Eosinophils % 9.6 %; Hematocrit 35.6 % (42.0-52.0); Hemoglobin 10.4 g/dL (11.7-16.6); Lymphocytes # 1.2 10^3/uL (0.8-4.8); Lymphocytes % 19.2 %; Mean Corpuscular HGB Conc 29.2 g/dL (30.0-36.0); Mean Corpuscular Hemoglobin 24.1 pg (28.0-34.0); Mean Corpuscular Volume 82.6 fL (80-94); Mean Platelet Volume 10.4 fL (7.4-10.4); Monocytes # 0.7 10^3/uL (0.2-0.9); Monocytes % 10.2 %; Neutrophils # 3.89 10^3/uL (1.8-7.7); Neutrophils % 60.1 %; Nucleated Red Blood Cells % 0 %; Platelet Count 258 10^3/cmm (130-400); Red Blood Count 4.31 10^6/uL (4.1-5.3); Red Cell Distribution Width 15.5 % (12.1-15.1); White Blood Count 6.5 10^3/uL (4.0-10.0)
[2019-12-08 20:03] VITALS: BP 151/70; PULSE 79; RESP 18; O2SAT 98
[2019-12-08 20:17] LABS: Troponin(5th) Baseline 33 ng/L (0-15)
[2019-12-08 20:22] LABS: Alanine Aminotransferase 15 U/L (0-41); Albumin Level 4.2 g/dL (3.5-5.2); Alkaline Phosphatase 86 IU/L (40-130); Anion Gap 16.1 (5-19); Aspartate Amino Transferase 17 U/L (0-40); Blood Urea Nitrogen 13 mg/dL (8-23); Calcium 8.6 mg/dL (8.5-10.5); Carbon Dioxide 25 mmol/L (22-29); Chloride 103 mmol/L (98-107); Globulin 2.2 g/dL (1.3-4.6); Glucose 99 mg/dL (65-115); Lipase 42 U/L (13-60); Magnesium 2.1 mg/dL (1.7-2.3); NT Pro B Type Natriuretic Pept 771 pg/mL (0-450); Osmolality Calculated 290 mOsm/kg (285-295); Potassium 4.1 mmol/L (3.5-5.1); Sodium 140 mmol/L (136-145); Total Bilirubin 0.2 mg/dL (0.15-1.2); Total Protein 6.4 g/dL (6.6-8.7)
[2019-12-08 20:30] VITALS: BP 151/70; PULSE 84; RESP 15; O2SAT 99
[2019-12-08 20:36] LABS: INR 1.18 (0.8-1.2)
[2019-12-08 20:38] LABS: Add Urine Microscopic? NO
[2019-12-08 20:56] LABS: Bilirubin Urine Neg (Negative); Blood Urine Neg (Negative); Glucose Urine UA Norm (Normal); Ketones Urine Negative (Negative); Leukocyte Esterase Urine Negative (Negative); Nitrate Urine Negative (Negative); Protein Urine Neg (Negative); Specific Gravity, Urine 1.015 (1.005-1.030); Urine Appearance Clear (CLEAR); Urine Color Yellow (Yellow); Urobilinogen Urine Norm (Negative)
[2019-12-08 21:06] VITALS: BP 126/67; PULSE 83; RESP 17; TEMP 36.8; O2SAT 93
--- NOTE | 2019-12-08 21:20 | PC.SOCIAL ---
Patient needs Medicaid ride home. Trip #[id number], notified [employer] and they got the trip. They should arrive in 20-30 minutes.
== END 2019-12-08 22:26 | disposition home or self-care (01) ==
PROVIDERS: Emergency Provider Emergency Medicine; PCP Nurse Practitioner Family
DX: R07.9 Chest pain, unspecified (principal); Z79.01 Long term (current) use of anticoagulants; I48.91 Unspecified atrial fibrillation; Z85.01 Personal history of malignant neoplasm of esophagus; I11.0 Hypertensive heart disease with heart failure; I50.9 Heart failure, unspecified; J44.9 Chronic obstructive pulmonary disease, unspecified; Z86.73 Personal history of transient ischemic attack (TIA), and cerebral infarction without residual deficits; E78.5 Hyperlipidemia, unspecified; G31.83 Neurocognitive disorder with Lewy bodies; F02.80 Dementia in other diseases classified elsewhere, unspecified severity, without behavioral disturbance, psychotic disturbance, mood disturbance, and anxiety; Z87.891 Personal history of nicotine dependence
CPT/HCPCS: 12345; 71045; 80053; 81003; 83690; 83735; 83880; 84484; 85025; 85610; 85730; 93005; 96374; 99283; J0131

== ENCOUNTER 2019-12-09 17:58 | Emergency (ER) | payer MEDICARE, MEDICAID, SELFPAY ==
[2019-12-09 17:59] VITALS: BP 158/69; PULSE 67; RESP 18; TEMP 36.6; O2SAT 99; BMI 29.0
--- NOTE | 2019-12-09 18:11 | ECG_ITS ---
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
--- NOTE | 2019-12-09 18:12 | ED_ITS ---
HPI - Back Pain/Injury General: Chief Complaint: Back Pain/Injury Stated Complaint: BACK PAIN Time Seen by Provider: 12/09/19 18:02 History of Present Illness: HPI Narrative: Patient arrives via ambulance with complaint of back pain was original complaint but now he says in room that is really started with his chest on the left chest left hand and went into his back and now his chest hurts with deep inspiration but it does not hurt otherwise says back hurts his hand is doing fine elicited complaint: other Pertinent past history: prior back pain Onset (ago): month(s) Timing: intermittent Severity: mild Similar Symptoms Previously: Yes Quality: stabbing Radiation: other (Left hand left lower flank area) Exacerbating factors: deep breaths Relieving factors: immobilization Context: unknown Associated symptoms: Reports no associated symptoms; Deny abdominal pain, chills, fever(s), nausea or vomiting Work related injury: No Review of Systems Const: Denies: fever(s), chills or body aches Eyes: Denies: change in vision or blurry vision ENMT: Denies: throat pain or nasal congestion Card: Reports: chest pain; Denies: dyspnea on exertion Resp: Denies: dyspnea, productive cough or non-productive cough GI: Denies: abdominal pain, nausea or vomiting : Denies: difficulty urinating Musc: Reports: back pain; Denies: extremity pain Skin/Breast: Denies: rash Neuro: Denies: headache(s) Psych: Denies: anxiety or depression Grant/Lymph: Denies: easy bruising PFS ED PFSH: Medical History (Updated 12/09/19 @ 19:17 by DENZEL Yeager) Anemia Anticoagulation adequate with anticoagulant therapy ASHD (arteriosclerotic heart disease) Atrial fibrillation was taken off anticoagulation due to GI bleed, has IVC filter Piper's esophagus BPH (benign prostatic hyperplasia) Carcinoma of esophagus radiation esophagitis CHF (congestive heart failure) CHF (congestive heart failure), NYHA class I COPD (chronic obstructive pulmonary disease) CVA (cerebral vascular accident) Diabetes Dyslipidemia (high LDL; low HDL) Essential hypertension Gait disturbance Lewy body dementia with behavioral disturbance NATALI (obstructive sleep apnea) Pneumonia Post laminectomy syndrome Pulmonary emboli Surgical History [place] filter in place History of esophagogastroduodenoscopy (EGD) (07/24/19) resolution of Grade D esophagitis, no evidence of carcinoma Previous back surgery S/P angioplasty with stent S/P appendectomy S/P hernia repair S/P tonsillectomy CONGREGATIONAL CARE PASTOR (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 Aicah Roche CONGREGATIONAL CARE PASTOR shunt revision Family History Father CAD (coronary artery disease) Mother CAD (coronary artery disease) Hypertension Sister CAD (coronary artery disease) Diabetes Family/Other Stroke Denies family history of Anesthesia complication Bleeding disorder Social History Smoking and tobacco status: former smoker Quit status (tobacco): has quit using tobacco Alcohol intake: former Physical Exam Const: COMMON NORMALS: no acute distress, average body habitus and patient oriented x3 HENMT: COMMON NORMALS: normocephalic HEAD & SCALP: normal to inspection and normocephalic FACE & SINUS: normal facial exam Eye: COMMON NORMALS: conjunctivae normal GENERAL EYE: appearance normal, both eyes and all related structures CONJUNCTIVA: Yes conjunctivae normal Neck/C-Spine: COMMON NORMALS: no JVD Chest: COMMONS NORMALS: normal inspection of the chest Resp: COMMON NORMALS: normal respiratory effort and clear to auscultation bilaterally AUSCULTATION: clear to auscultation bilaterally Cardio: COMMON NORMALS: no JVD, regular rate and regular rhythm RATE: regular rate RHYTHM: regular rhythm GI: COMMON NORMALS: Normal to inspection, nondistended, normoactive bowel sounds present Extremity: COMMON NORMALS: normal to inspection and full ROM Neuro: COMMON NORMALS: patient oriented x3 Course Vital Signs: Vital signs: Vital Signs Temperature 97.9 F 12/09/19 17:59 Pulse Rate 94 12/09/19 19:29 Respiratory Rate 14 12/09/19 19:29 Blood Pressure 152/75 12/09/19 19:29 Pulse Oximetry 98 12/09/19 19:29 MDM - Back Pain/Injury MDM Narrative: Medical decision making narrative: Patient is pain-free after receiving injection of Toradol. Patient is asking to go home. States he has no chest pains no shortness of breath feels much better. Lab Data: Labs: Lab Results 12/09/19 Range/Units 18:34 Troponin T Gen 5 n g/L 33 H (0-15) ng/L Discharge Plan Discharge Patient Disposition: Home Clinical Impression: Chest pain, non-cardiac Condition: Stable Prescriptions: No Action tamsulosin [Flomax] 0.4 mg capsule 0.4 mg PO DAILY RF: 0 risperidone 0.5 mg tablet 0.5 mg PO BID RF: 0 melatonin 5 mg capsule 5 - 10 mg PO BEDTIME RF: 0 ascorbate calcium (vitamin C) 500 mg tablet 500 mg PO DAILY RF: 0 furosemide 40 mg tablet 40 mg PO BID Qty: 180 RF: 1 potassium chloride 20 mEq tablet extended release 20 meq PO DAILY 90 Days Qty: 90 RF: 1 Eliquis 5 mg tablet 5 mg PO BID 90 Days Qty: 180 RF: 1 spironolactone 25 mg Tablet 25 mg PO DAILY RF: 0 sucralfate [Carafate] 100 mg/mL suspension See Rx Instructions .ROUTE .COMPLEX RF: 0 esomeprazole magnesium [Nexium] 40 mg capsule,delayed release(DR/EC) 40 mg PO DAILY RF: 0 benzonatate [Tessalon Perles] 100 mg capsule 100 mg PO BID Qty: 14 RF: 0 vitamin B complex Tablet 1 tab PO DAILY RF: 0 Discharge Orders: Discharge Order (Routine); Ordered 12/09/19 Ordered By: Jhon Appiah Referrals: Ashley Medrano FNP [Primary Care Provider] - Discharge Diet: Usual diet Discharge Activity: Increase activity as tolerated Patient Instructions: Chest Pain - Noncardiac Activity Restrictions/Additional Instructions: Follow-up with medical provider as directed. Take medications as prescribed. Return to the ER or your medical provider if condition worsens. Please read and understand discharge instructions. If any questions ask please. Follow-up with your family medical provider to assess why he have to keep come back to the ER for your noncardiac chest pain. Try not to call ambulance atop the ambulance unless you are having real chest pressure shortness of breath type cardiac chest pain. Contact your primary care provider soon as possible get an appointment to assess what is going on. Discharge Date/Time: 12/09/19 19:30 Coding Level of Care Code ED Research Development Director for Irma Fwd Exam Comprehensive
[2019-12-09] MEDS: ketorolac 60 mg/2 mL INJ IM (18:24)
[2019-12-09 18:27] VITALS: O2SAT 99
[2019-12-09 19:05] LABS: Troponin T (5th) Once 33 ng/L (0-15)
[2019-12-09 19:29] VITALS: BP 152/75; PULSE 94; RESP 14; O2SAT 98
--- NOTE | 2019-12-09 20:36 | W.ED.BACK ---
HPI - Back Pain/Injury General: Chief Complaint: Back Pain/Injury Stated Complaint: BACK PAIN Time Seen by Provider: 12/09/19 18:02 History of Present Illness: Severity: mild Similar Symptoms Previously: Yes Quality: stabbing Exacerbating factors: deep breaths Relieving factors: immobilization PFSH ED PFSH: Medical History (Updated 12/09/19 @ 19:17 by DENZEL Yeager) Anemia Anticoagulation adequate with anticoagulant therapy ASHD (arteriosclerotic heart disease) Atrial fibrillation was taken off anticoagulation due to GI bleed, has IVC filter Piper's esophagus BPH (benign prostatic hyperplasia) Carcinoma of esophagus radiation esophagitis CHF (congestive heart failure) CHF (congestive heart failure), NYHA class I COPD (chronic obstructive pulmonary disease) CVA (cerebral vascular accident) Diabetes Dyslipidemia (high LDL; low HDL) Essential hypertension Gait disturbance Lewy body dementia with behavioral disturbance NATALI (obstructive sleep apnea) Pneumonia Post laminectomy syndrome Pulmonary emboli Surgical History Trip filter in place History of esophagogastroduodenoscopy (EGD) (07/24/19) resolution of Grade D esophagitis, no evidence of carcinoma Previous back surgery S/P angioplasty with stent S/P appendectomy S/P hernia repair S/P tonsillectomy FORMING YARDAGE CONTROL OPERATOR (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 Aicha Roche FORMING YARDAGE CONTROL OPERATOR shunt revision Family History Father CAD (coronary artery disease) Mother CAD (coronary artery disease) Hypertension Sister CAD (coronary artery disease) Diabetes Family/Other Stroke Denies family history of Anesthesia complication Bleeding disorder Social History Smoking and tobacco status: former smoker Quit status (tobacco): has quit using tobacco Alcohol intake: former Course Vital Signs: Vital signs: Vital Signs Temperature 97.9 F 12/09/19 17:59 Pulse Rate 94 12/09/19 19:29 Respiratory Rate 14 12/09/19 19:29 Blood Pressure 152/75 12/09/19 19:29 Pulse Oximetry 98 12/09/19 19:29 MDM - Back Pain/Injury Lab Data: Labs: Lab Results 12/09/19 Range/Units 18:34 Troponin T Gen 5 n g/L 33 H (0-15) ng/L EKG Data^: EKG 1: EKG interpretation date: 12/09/19 EKG interpretation time: 18:26 Prior EKG tracings: available for review Interpretation: No change from previous continue to show atrial fib intraocular rate 73 bpm QRS duration [address] and T wave abnormality Discharge Plan Discharge Patient Disposition: Home Clinical Impression: Chest pain, non-cardiac Condition: Stable Prescriptions: No Action tamsulosin [Flomax] 0.4 mg capsule 0.4 mg PO DAILY RF: 0 risperidone 0.5 mg tablet 0.5 mg PO BID RF: 0 melatonin 5 mg capsule 5 - 10 mg PO BEDTIME RF: 0 ascorbate calcium (vitamin C) 500 mg tablet 500 mg PO DAILY RF: 0 furosemide 40 mg tablet 40 mg PO BID Qty: 180 RF: 1 potassium chloride 20 mEq tablet extended release 20 meq PO DAILY 90 Days Qty: 90 RF: 1 Eliquis 5 mg tablet 5 mg PO BID 90 Days Qty: 180 RF: 1 spironolactone 25 mg Tablet 25 mg PO DAILY RF: 0 sucralfate [Carafate] 100 mg/mL suspension See Rx Instructions .ROUTE .COMPLEX RF: 0 esomeprazole magnesium [Nexium] 40 mg capsule,delayed release(DR/EC) 40 mg PO DAILY RF: 0 benzonatate [Tessalon Perles] 100 mg capsule 100 mg PO BID Qty: 14 RF: 0 vitamin B complex Tablet 1 tab PO DAILY RF: 0 Discharge Orders: Discharge Order (Routine); Ordered 12/09/19 Ordered By: Jhon Appiah Referrals: Ashley Medrano FNP [Primary Care Provider] - Discharge Diet: Usual diet Discharge Activity: Increase activity as tolerated Patient Instructions: Chest Pain - Noncardiac Activity Restrictions/Additional Instructions: Follow-up with medical provider as directed. Take medications as prescribed. Return to the ER or your medical provider if condition worsens. Please read and understand discharge instructions. If any questions ask please. Follow-up with your family medical provider to assess why he have to keep come back to the ER for your noncardiac chest pain. Try not to call ambulance atop the ambulance unless you are having real chest pressure shortness of breath type cardiac chest pain. Contact your primary care provider soon as possible get an appointment to assess what is going on. Discharge Date/Time: 12/09/19 19:30 Coding Level of Care Code ED Insurance Claim Auditor for Irma Delgado
--- NOTE | 2019-12-09 21:02 | PC.SOCIAL ---
[facility] burden called, trip #[id number]. Notified [facility] of trip. Per Joselin with [facility] they will not be able to take him home unless met them at the end of the driveway because the last time they took him home they got stuck in his driveway. Spoke to Esme who confirms she can meet him at the end of the road.
== END 2019-12-09 19:30 | disposition home or self-care (01) ==
PROVIDERS: Emergency Provider Nurse Practitioner Family; PCP Nurse Practitioner Family
DX: R07.89 Other chest pain (principal); Z79.01 Long term (current) use of anticoagulants; I48.91 Unspecified atrial fibrillation; Z85.01 Personal history of malignant neoplasm of esophagus; I11.0 Hypertensive heart disease with heart failure; I50.9 Heart failure, unspecified; Z86.73 Personal history of transient ischemic attack (TIA), and cerebral infarction without residual deficits; E11.9 Type 2 diabetes mellitus without complications; E78.5 Hyperlipidemia, unspecified; G31.83 Neurocognitive disorder with Lewy bodies; F02.80 Dementia in other diseases classified elsewhere, unspecified severity, without behavioral disturbance, psychotic disturbance, mood disturbance, and anxiety; Z87.891 Personal history of nicotine dependence
CPT/HCPCS: 12345; 36415; 84484; 93005; 96372; 99282; 99283; J1885

== ENCOUNTER 2019-12-14 17:00 | Emergency (ER) | payer MEDICARE, MEDICAID, SELFPAY ==
[2019-12-14 17:03] VITALS: BP 135/84; PULSE 82; RESP 18; TEMP 36.8; O2SAT 94; BMI 27.7
--- NOTE | 2019-12-14 17:20 | XRR_ITS ---
PROCEDURE INFORMATION: Exam: XR Chest, 1 View Exam date and time: 12/14/2019 5:22 PM Age: 79 years old Clinical indication: Other: Syncope TECHNIQUE: Imaging protocol: XR of the chest Views: 1 view. COMPARISON: CR XR chest 1V portable [id number] 12/08/2019 8:07 PM FINDINGS: Tubes, catheters and devices: There is a RAW PRODUCTS DIRECTOR shunt catheter over the left side of the chest. Lungs: Visualized portions of the lungs are clear. Pleural space: Unremarkable. No pleural effusion. No pneumothorax. Heart/Mediastinum: Mild cardiomegaly is unchanged.. Coronary stents are noted. Bones/joints: Unremarkable. XR/XR chest 1V portable [id number] IMPRESSION: 1. No acute infiltrates. 2. No significant change from a 12/08/2019.
--- NOTE | 2019-12-14 17:20 | W.ED.CHESTPA ---
HPI - Chest Pain General: Chief Complaint: Chest Pain Stated Complaint: CHEST PAIN Time Seen by Provider: 12/14/19 17:10 History of Present Illness: HPI narrative: 79-year-old male patient presents to the emergency department with 30-minute onset of chest pain. He reports ate a banana 1 hour prior to arrival, developed sharp chest pain in the middle of his chest and to the left side of the chest. He denies nausea vomiting. Denies shortness of breath. He reports cough but the same cough has been present for 20 years. He has been to the emergency department for evaluation for chest pain several times this month. Previous evaluation 12/09/2019. Findings unremarkable from cardiac standpoint. He suffers from dementia. States his is his primary gang ripsaw operator at home. He presents to the emergency department via EMS. States his pain was 8 out of 10 while at home, did not take medication for his complaint but states he does have medication at home for chest pain. 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 Onset (ago): minute(s) (30) Timing of current episode: increasing Prior episodes: Yes Onset: after eating Pain location: substernal and left chest Pain radiation: none Severity: mild Pain scale (0-10): 2 Quality: sharp Relieving factors: nothing Context: history of DVT/PE Associated symptoms: Reports leg edema; Deny abdominal pain, diaphoresis, dyspnea, fever(s), nausea, palpitations or vomiting Treatment prior to arrival: none Review of Systems General: Reports: 10 or more systems reviewed and unremarkable except in HPI and below Const: Denies: fever(s), chills or diaphoresis Eyes: Denies: blurry vision or eye redness ENMT: Denies: throat pain, dental pain or disequilibrium Card: Reports: chest pain and swelling of feet/ankles (resolves with leg elevation); Denies: palpitations, irregular heart rhythm, dyspnea on exertion or orthopnea Resp: Reports: non-productive cough; Denies: dyspnea, productive cough, wheezing or chest congestion GI: Denies: abdominal pain, nausea or vomiting : Denies: dysuria Musc: Denies: neck pain or back pain Skin/Breast: Denies: rash or pruritus Neuro: Denies: headache(s), weakness in extremities or behavioral changes Psych: Denies: anxiety or depression Grant/Lymph: Denies: easy bruising PFSH ED PFS: Medical History (Updated 12/14/19 @ 21:02 by WENDY Fernandez) Anemia Anticoagulation adequate with anticoagulant therapy ASHD (arteriosclerotic heart disease) Atrial fibrillation was taken off anticoagulation due to GI bleed, has IVC filter Piper's esophagus BPH (benign prostatic hyperplasia) Carcinoma of esophagus radiation esophagitis CHF (congestive heart failure) CHF (congestive heart failure), NYHA class I COPD (chronic obstructive pulmonary disease) CVA (cerebral vascular accident) Diabetes Dyslipidemia (high LDL; low HDL) Essential hypertension Gait disturbance Lewy body dementia with behavioral disturbance NATALI (obstructive sleep apnea) Pneumonia Post laminectomy syndrome Pulmonary emboli Surgical History Trip filter in place History of esophagogastroduodenoscopy (EGD) (07/24/19) resolution of Grade D esophagitis, no evidence of carcinoma Previous back surgery S/P angioplasty with stent S/P appendectomy S/P hernia repair S/P tonsillectomy 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 Aicha Roche BUILDING MAINTENANCE REPAIRER shunt revision Family History Father CAD (coronary artery disease) Mother CAD (coronary artery disease) Hypertension Sister CAD (coronary artery disease) Diabetes Family/Other Stroke Denies family history of Anesthesia complication Bleeding disorder Social History Smoking and tobacco status: former smoker Quit status (tobacco): has quit using tobacco Alcohol intake: former Physical Exam Const: COMMON NORMALS: no acute distress, healthy appearing and alert GENERAL APPEARANCE: cooperative, comfortable and well hydrated ORIENTATION/CONSCIOUSNESS: Yes awake, Yes oriented to person and Yes confused; not oriented to place and not oriented to time HENMT: COMMON NORMALS: normocephalic, Normal external nose present and moist oral mucous membranes HEAD & SCALP: normocephalic NOSE: Normal external nose present Eye: COMMON NORMALS: Equal, round and reactive pupils present and EOMs intact bilaterally GENERAL EYE: appearance normal, both eyes and all related structures PUPIL: Yes Equal, round and reactive pupils present Neck/C-Spine: COMMON NORMALS: full ROM and no lymphadenopathy GENERAL: Yes normal visual inspection and Yes trachea midline CERVICAL SPINE: Yes cervical ROM normal Lymph: LYMPHATIC: no lymphadenopathy noted Chest: COMMONS NORMALS: normal inspection of the chest Resp: COMMON NORMALS: normal respiratory effort and clear to auscultation bilaterally AUSCULTATION: clear to auscultation bilaterally and diminished lung sounds bilateral in the lower lung hathaway Cardio: COMMON NORMALS: regular rhythm, S1 normal heart sound present, S2 normal heart sound present and Peripheral pulses 2+ throughout RHYTHM: regular rhythm HEART SOUNDS: S1 normal heart sound present and S2 normal heart sound present PERIPHERAL PULSES: Peripheral pulses 2+ throughout GI: COMMON NORMALS: Normal to inspection, nondistended, normoactive bowel sounds present, Soft to palpation and non-tender INSPECTION: Yes normal to inspection PALPATION: Yes Soft to palpation : COMMON NORMALS: Yes no CVA tenderness BLADDER/KIDNEY EXAM: Yes no CVA tenderness Back/Pelvis: COMMON NORMALS: no CVA tenderness and thoracic and lumbar spine normal to inspection Extremity: COMMON NORMALS: normal to inspection and capillary refill normal GENERAL: Yes normal exam except as noted and Yes edema (BLE 2 +) Neuro: TAZ COMA SCALE: document GCS findings Taz coma scale eye opening: Spontaneous [place] coma scale verbal response: Confused [place] coma scale motor response: Obey commands Taz coma scale total score: 14 COMMON NORMALS: no focal motor deficits SENSORIUM/ORIENTATION: Yes alert, Yes oriented to person, No oriented to place and No oriented to time SPEECH: speech normal MOTOR EXAM: 5/5 motor strength present throughout Psych: COMMON NORMALS: Normal thought process present, cooperative and speech normal ACTIVITY/MOTOR BEHAVIOR: Yes appropriate eye contact SPEECH: Yes normal speech THOUGHT PROCESS: Normal thought process present MEMORY/COGNITION: Yes memory grossly impaired (not able to recall President, year or month) Impared memory type(s): short term and manager intermediate Skin: COMMON NORMALS: no rashes or lesions noted and turgor normal GENERAL SKIN EXAM: no rashes or lesions noted and turgor normal Course ED course: 79-year-old male patient presents to the emergency department with complaints of chest pain. Patient has been seen in the ED multiple times for similar complaint. Delta troponin negative, second troponin not elevated. He denies chest pain here in the ED and is ready to go home. He states no longer wants to stay and wants to leave. Patient will be discharged home. Advised follow-up with his primary care provider. He suffers from dementia. Spouse is primary gang ripsaw operator and is not present during exam/stay. Vital Signs: Vital signs: Vital Signs Temperature 98.2 F 12/14/19 17:03 Pulse Rate 84 12/14/19 21:24 Respiratory Rate 18 12/14/19 21:24 Blood Pressure 147/68 12/14/19 21:24 Pulse Oximetry 93 12/14/19 21:24 MDM - Chest Pain Lab Data: Labs: Lab Results 12/14/19 12/14/19 12/14/19 Range/Units 17:46 17:46 17:46 WBC 7.2 (4.0-10.0) 10^3/ uL RBC 4.73 (4.1-5.3) 10^6/u L Hgb 11.4 L (11.7-16.6) g/dL Hct 38.6 L (42.0-52.0) % MCV 81.6 (80-94) fL MCH 24.1 L (28.0-34.0) pg MCHC 29.5 L (30.0-36.0) g/dL RDW 15.2 H (12.1-15.1) % Plt Count 261 (130-400) 10^3/c mm MPV 10.5 H (7.4-10.4) fL Neut % (Auto) 58.8 % Lymph % (Auto) 19.8 % [place] % (Auto) 11.4 % Eos % (Auto) 9.1 % Baso % (Auto) 0.8 % Neut # (Auto) 4.24 (1.8-7.7) 10^3/u L Lymph # (Auto) 1.4 (0.8-4.8) 10^3/u L [place] # (Auto) 0.8 (0.2-0.9) 10^3/u L Eos # (Auto) 0.7 (0.0-0.8) 10^3/u L Baso # (Auto) 0.1 (0.0-0.1) 10^3/u L Nucleated RBC % (a uto) 0 % Nucleated RBCs # 0.0 /100WBC Sodium 138 (136-145) mmol/L Potassium 4.3 (3.5-5.1) mmol/L Chloride 98 (98-107) mmol/L Carbon Dioxide 27 (22-29) mmol/L Anion Gap 17.3 (5-19) BUN 12 (8-23) mg/dL Creatinine 1.1 (0.7-1.2) mg/dL GFR Calculation Not Reportable Glucose 88 (65-115) mg/dL Calculated Osmolal ity 285 (285-295) mOsm/k g Calcium 9.2 (8.5-10.5) mg/dL Total Bilirubin 0.2 (0.15-1.2) mg/dL AST 18 (0-40) U/L ALT 17 (0-41) U/L Alkaline Phosphata se 89 (40-130) IU/L Troponin T Baselin e 34 H (0-15) ng/L Troponin T 120 Min hopi (0-15) ng/L Delta Troponin T (0-10) ABS# NT-Pro-B Natriuret Pep 814 H (0-450) pg/mL Total Protein 7.2 (6.6-8.7) g/dL Albumin 4.6 (3.5-5.2) g/dL Globulin 2.6 (1.3-4.6) g/dL 12/14/19 Range/Units 20:10 WBC (4.0-10.0) 10^3/ uL RBC (4.1-5.3) 10^6/u L Hgb (11.7-16.6) g/dL Hct (42.0-52.0) % MCV (80-94) fL MCH (28.0-34.0) pg MCHC (30.0-36.0) g/dL RDW (12.1-15.1) % Plt Count (130-400) 10^3/c mm MPV (7.4-10.4) fL Neut % (Auto) % Lymph % (Auto) % [place] % (Auto) % Eos % (Auto) % Baso % (Auto) % Neut # (Auto) (1.8-7.7) 10^3/u L Lymph # (Auto) (0.8-4.8) 10^3/u L [place] # (Auto) (0.2-0.9) 10^3/u L Eos # (Auto) (0.0-0.8) 10^3/u L Baso # (Auto) (0.0-0.1) 10^3/u L Nucleated RBC % (a uto) % Nucleated RBCs # /100WBC Sodium (136-145) mmol/L Potassium (3.5-5.1) mmol/L Chloride (98-107) mmol/L Carbon Dioxide (22-29) mmol/L Anion Gap (5-19) BUN (8-23) mg/dL Creatinine (0.7-1.2) mg/dL GFR Calculation Glucose (65-115) mg/dL Calculated Osmolal ity (285-295) mOsm/k g Calcium (8.5-10.5) mg/dL Total Bilirubin (0.15-1.2) mg/dL AST (0-40) U/L ALT (0-41) U/L Alkaline Phosphata se (40-130) IU/L Troponin T Baselin e (0-15) ng/L Troponin T 120 Min hopi 33.00 H (0-15) ng/L Delta Troponin T -1.00 L (0-10) ABS# NT-Pro-B Natriuret Pep (0-450) pg/mL Total Protein (6.6-8.7) g/dL Albumin (3.5-5.2) g/dL Globulin (1.3-4.6) g/dL Imaging Data^: CXR: Radiologist's impression: [address] [address] XRay Report Signed Patient: Willie Ramt #: [id number] : 1Acct#:[id number] Age/Sex: 79 / MADM Date: 12/14/19 Loc: ERRoom/Bed: Attending Dr: Ordering Provider/Ordering MD: Emilee Leal Date of Service: 12/14/19 Procedure(s): XR chest 1V portable [id number] Accession Number(s): [id number] Report Number: [id number] PROCEDURE INFORMATION: Exam: XR Chest, 1 View Exam date and time: 12/14/2019 5:22 PM Age: 79 years old Clinical indication: Other: Syncope TECHNIQUE: Imaging protocol: XR of the chest Views: 1 view. COMPARISON: CR XR chest 1V portable [id number] 12/08/2019 8:07 PM FINDINGS: Tubes, catheters and devices: There is a BUILDING MAINTENANCE REPAIRER shunt catheter over the left side of the chest. Lungs: Visualized portions of the lungs are clear. Pleural space: Unremarkable. No pleural effusion. No pneumothorax. Heart/Mediastinum: Mild cardiomegaly is unchanged.. Coronary stents are noted. Bones/joints: Unremarkable. XR/XR chest 1V portable [id number] IMPRESSION: 1. No acute infiltrates. 2. No significant change from a 12/08/2019. Dictated By:Isaias Del Toro Signed By:Clive Del Toroigned Date/Time:12/14/191757 DD/ 56 EKG Data^: EKG 2: EKG interpretation date: 12/14/19 EKG interpretation time: 20:55 Prior EKG tracings: available for review Computer generated interpretation: Atrial fibrillation, nonspecific T wave abnormality, abnormal rhythm ECG EKG 1: EKG interpretation date: 12/14/19 EKG interpretation time: 17:45 Computer generated interpretation: Interpretive Statements ATRIAL FIBRILLATION LEFT AXIS DEVIATION [QRS AXIS < -30] INCOMPLETE RIGHT BUNDLE BRANCH BLOCK [90+ ms QRS DURATION, TERMINAL R IN V1/V2, 40+ ms S IN I/aVL/V4/V5/V6] MINIMAL ST DEPRESSION [0.025+ mV ST DEPRESSION] Compared to ECG 12/09/2019 18:26:54 Incomplete right bundle-branch block now present ST (T wave) deviation now present T-wave abnormality no longer present Electronically Signed On 12-14-2019 19:35:11 PRESCRIPTION EYEGLASS MAKER by CODIE KUNZ Discharge Plan Discharge Patient Disposition: Home Clinical Impression: Non-cardiac chest pain Dementia with Lewy bodies Qualifiers: Dementia behavioral disturbance: without behavioral disturbance Qualified Code(s): G31.83 - Dementia with Lewy bodies Condition: Stable Prescriptions: No Action tamsulosin [Flomax] 0.4 mg capsule 0.4 mg PO DAILY RF: 0 risperidone 0.5 mg tablet 0.5 mg PO BID RF: 0 melatonin 5 mg capsule 5 - 10 mg PO BEDTIME RF: 0 ascorbate calcium (vitamin C) 500 mg tablet 500 mg PO DAILY RF: 0 furosemide 40 mg tablet 40 mg PO BID Qty: 180 RF: 1 potassium chloride 20 mEq tablet extended release 20 meq PO DAILY 90 Days Qty: 90 RF: 1 Eliquis 5 mg tablet 5 mg PO BID 90 Days Qty: 180 RF: 1 spironolactone 25 mg Tablet 25 mg PO DAILY RF: 0 sucralfate [Carafate] 100 mg/mL suspension See Rx Instructions .ROUTE .COMPLEX RF: 0 esomeprazole magnesium [Nexium] 40 mg capsule,delayed release(DR/EC) 40 mg PO DAILY RF: 0 benzonatate [Tessalon Perles] 100 mg capsule 100 mg PO BID Qty: 14 RF: 0 vitamin B complex Tablet 1 tab PO DAILY RF: 0 Discharge Orders: Discharge Order (Routine); Ordered 12/14/19 Ordered By: Emilee Leal Referrals: Ashley Medrano FNP [Primary Care Provider] - Discharge Diet: Usual diet Discharge Activity: Resume usual activity Patient Instructions: Chest Pain - Noncardiac, Chest Pain (ED) Activity Restrictions/Additional Instructions: Follow-up with your primary care provider this week without fail Continue home medications Return to the emergency department if you develop worsening chest pain, shortness of breath with nausea vomiting Keep legs elevated to help with swelling Discharge Date/Time: 12/14/19 21:20 Coding Level of Care Code ED All Round Butcher for Irma Fwrandy Exam Comprehensive
--- NOTE | 2019-12-14 17:21 | ECG_ITS ---
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1940 Requested By: Emilee Palmer Order Number: [id number] Kevin MD: CODIE KUNZ Measurements Intervals [place] Rate: 71 P: IN: -1 QRS: -35 QRSD: 101 T: 76 QT: 378 QTc: 411 Interpretive Statements ATRIAL FIBRILLATION LEFT AXIS DEVIATION [QRS AXIS < -30] INCOMPLETE RIGHT BUNDLE BRANCH BLOCK [90+ ms QRS DURATION, TERMINAL R IN V1/V2, 40+ ms S IN I/aVL/V4/V5/V6] MINIMAL ST DEPRESSION [0.025+ mV ST DEPRESSION] Compared to ECG 12/09/2019 18:26:54 Incomplete right bundle-branch block now present ST (T wave) deviation now present T-wave abnormality no longer present Electronically Signed On 12-14-2019 19:35:11 APPLICATION CONSULTANT by CODIE KUNZ [id number] f
[2019-12-14 17:53] LABS: Basophils # 0.1 10^3/uL (0.0-0.1); Basophils % 0.8 %; Eosinophils # 0.7 10^3/uL (0.0-0.8); Eosinophils % 9.1 %; Hematocrit 38.6 % (42.0-52.0); Hemoglobin 11.4 g/dL (11.7-16.6); Lymphocytes # 1.4 10^3/uL (0.8-4.8); Lymphocytes % 19.8 %; Mean Corpuscular HGB Conc 29.5 g/dL (30.0-36.0); Mean Corpuscular Hemoglobin 24.1 pg (28.0-34.0); Mean Corpuscular Volume 81.6 fL (80-94); Mean Platelet Volume 10.5 fL (7.4-10.4); Monocytes # 0.8 10^3/uL (0.2-0.9); Monocytes % 11.4 %; Neutrophils # 4.24 10^3/uL (1.8-7.7); Neutrophils % 58.8 %; Nucleated Red Blood Cells % 0 %; Platelet Count 261 10^3/cmm (130-400); Red Blood Count 4.73 10^6/uL (4.1-5.3); Red Cell Distribution Width 15.2 % (12.1-15.1); White Blood Count 7.2 10^3/uL (4.0-10.0)
[2019-12-14 18:14] LABS: Troponin(5th) Baseline 34 ng/L (0-15)
[2019-12-14 18:22] LABS: Alanine Aminotransferase 17 U/L (0-41); Albumin Level 4.6 g/dL (3.5-5.2); Alkaline Phosphatase 89 IU/L (40-130); Anion Gap 17.3 (5-19); Aspartate Amino Transferase 18 U/L (0-40); Blood Urea Nitrogen 12 mg/dL (8-23); Calcium 9.2 mg/dL (8.5-10.5); Carbon Dioxide 27 mmol/L (22-29); Chloride 98 mmol/L (98-107); Globulin 2.6 g/dL (1.3-4.6); Glucose 88 mg/dL (65-115); NT Pro B Type Natriuretic Pept 814 pg/mL (0-450); Osmolality Calculated 285 mOsm/kg (285-295); Potassium 4.3 mmol/L (3.5-5.1); Sodium 138 mmol/L (136-145); Total Bilirubin 0.2 mg/dL (0.15-1.2); Total Protein 7.2 g/dL (6.6-8.7)
[2019-12-14 20:36] VITALS: BP 147/68; PULSE 84; RESP 18; O2SAT 94
--- NOTE | 2019-12-14 20:38 | ECG_ITS ---
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1940 Requested By: Emilee Palmer Order Number: [id number] Kevin MD: CODIE KUNZ Measurements Intervals [place] Rate: 84 P: VT: -1 QRS: -13 QRSD: 101 T: 81 QT: 363 QTc: 430 Interpretive Statements ATRIAL FIBRILLATION LOW QRS VOLTAGE IN PRECORDIAL LEADS [QRS DEFLECTION < 1.0 mV IN CHEST LEADS] NONSPECIFIC T-WAVE ABNORMALITY ABNORMAL RHYTHM ECG Compared to ECG 12/14/2019 17:05:45 Low QRS voltage now present T-wave abnormality now present Left-axis deviation no longer present Incomplete right bundle-branch block no longer present ST (T wave) deviation no longer present Electronically Signed On 12-15-2019 20:16:25 MOBILE HOME INSTALLER by CODIE KUNZ [id number]
[2019-12-14 21:24] VITALS: BP 147/68; PULSE 84; RESP 18; O2SAT 93
== END 2019-12-14 21:20 | disposition home or self-care (01) ==
PROVIDERS: Emergency Provider Nurse Practitioner Family; PCP Nurse Practitioner Family
DX: R07.89 Other chest pain (principal); G31.83 Neurocognitive disorder with Lewy bodies; Z79.01 Long term (current) use of anticoagulants; I48.91 Unspecified atrial fibrillation; Z85.01 Personal history of malignant neoplasm of esophagus; I50.9 Heart failure, unspecified; Z86.73 Personal history of transient ischemic attack (TIA), and cerebral infarction without residual deficits; J44.9 Chronic obstructive pulmonary disease, unspecified; E11.9 Type 2 diabetes mellitus without complications; E78.5 Hyperlipidemia, unspecified; Z87.891 Personal history of nicotine dependence
CPT/HCPCS: 12345; 71045; 80053; 83880; 84484; 85025; 93005; 99282; 99283

== ENCOUNTER 2020-05-14 18:37 | Emergency (ER) | payer MEDICARE, MEDICAID, SELFPAY ==
[2020-05-14 18:44] VITALS: BP 91/60; PULSE 64; RESP 15; O2SAT 96; BMI 31.6
--- NOTE | 2020-05-14 19:11 | CTR_ITS ---
PROCEDURE INFORMATION: Exam: CT Head Without Contrast Exam date and time: 05/14/2020 7:23 PM Age: 79 years old Clinical indication: Injury or trauma; Blunt trauma (contusions or hematomas); Prior surgery; Surgery type: Secretary To Board Of Commissioners shunt; Patient HX: Fall with blow to forehead. On eliquis. ; Additional info: Fall. Head lac on eliquis TECHNIQUE: Imaging protocol: Computed tomography of the head without contrast. Radiation optimization: All CT scans at this facility use at least one of these dose optimization techniques: automated exposure control; mA and/or kV adjustment per patient size (includes targeted exams where dose is matched to clinical indication); or iterative reconstruction. COMPARISON: CT head wo con* [id number] 10/14/2019 7:17 PM RADIATION DOSE METRICS: Total DLP (mGy-cm): 981.68 FINDINGS: Tubes, catheters and devices: Stable bilateral frontal alyssa holes with current left anterior frontal DOCUMENT IMAGING SPECIALIST shunt catheter with tip over the left anterior lateral ventricle. Metallic artifact over the left anterior frontal lobe from the left DOCUMENT IMAGING SPECIALIST shunt metallic hardware. Brain: Mild to moderate cerebral atrophy and ischemic leukoencephalopathy. Small left anterolateral frontal lobe extra-axial hemorrhage/cortical contusion versus artifact, axial series 2, images 34-36. Cerebral ventricles: No ventriculomegaly. Bones/joints: Developmental defect in the posterior arch of C1 which is a normal variant. Paranasal sinuses: Visualized sinuses are unremarkable. No fluid levels. Mastoid air cells: Visualized mastoid air cells are well aerated. Vasculature: Severe calcified intracranial atherosclerotic vessel disease. Soft tissues: Left anterior frontal paramedian scalp contusion. CT/CT head wo con* [id number] IMPRESSION: 1. Left anterior frontal paramedian scalp contusion. 2. Metallic artifact over the left anterior frontal lobe from the left DOCUMENT IMAGING SPECIALIST shunt metallic hardware. 3. Small left anterolateral frontal lobe extra-axial hemorrhage/cortical contusion versus artifact, axial series 2, images 34-36. Radiation Dose CTDIVOL = (mGy): DLP = 981.68 (mGy-cm)
--- NOTE | 2020-05-14 19:24 | W.ED.FALL ---
HPI - Fall General: Chief Complaint: Fall Stated Complaint: FALL Time Seen by Provider: 05/14/20 18:39 History of Present Illness: HPI Narrative: The patient is a 79-year-old male from [facility] who comes to the ER after a fall out of his bed. He sustained a 2.5 cm laceration to his forehead near the hairline. He states he has pain only there. They placed Steri-Strips on it and it is approximated nicely. His recommended he be seen in the ED. MD complaint: fall Associated symptoms-after fall: Reports headache(s); Denies abdominal pain, chest pain, confusion, difficulty walking or neck pain Review of Systems General: Reports: 10 or more systems reviewed and unremarkable except in HPI and below Const: Denies: fatigue Eyes: Denies: change in vision, blurry vision or eye redness ENMT: Denies: throat pain, swelling of lips/tongue, ear or mastoid pain or nasal congestion Card: Denies: chest pain, palpitations, irregular heart rhythm, edema, dyspnea on exertion or orthopnea Resp: Denies: dyspnea, productive cough or non-productive cough GI: Denies: abdominal pain, diarrhea or GI cramping : Denies: flank pain, urinary frequency or urinary urgency Musc: Denies: neck pain, back pain, extremity pain, joint pain, joint redness, limited range of motion or muscle weakness Skin/Breast: Denies: rash, pruritus, erythema, skin pain or skin tenderness Neuro: Reports: headache(s); Denies: numbness in extremities, weakness in extremities, sensory changes, difficulty walking, dizziness, confusion or Slurred speech present Psych: Denies: anxiety or depression Endo: Denies: polyuria All/Imm: Denies: urticaria, throat swelling or tongue swelling [facility] ED PFSH: Medical History (Updated 05/14/20 @ 22:33 by Lele Zhou MD) Anemia Anticoagulation adequate with anticoagulant therapy ASHD (arteriosclerotic heart disease) Atrial fibrillation was taken off anticoagulation due to GI bleed, has IVC filter Piper's esophagus BPH (benign prostatic hyperplasia) Carcinoma of esophagus radiation esophagitis CHF (congestive heart failure) CHF (congestive heart failure), NYHA class I COPD (chronic obstructive pulmonary disease) CVA (cerebral vascular accident) Diabetes Dyslipidemia (high LDL; low HDL) Essential hypertension Gait disturbance Lewy body dementia with behavioral disturbance NATALI (obstructive sleep apnea) Pneumonia Post laminectomy syndrome Pulmonary emboli Surgical History Talmage filter in place History of esophagogastroduodenoscopy (EGD) (07/24/19) resolution of Grade D esophagitis, no evidence of carcinoma Previous back surgery S/P angioplasty with stent S/P appendectomy S/P hernia repair S/P tonsillectomy ECONOMIC ADVISER (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 Aicha Roche ECONOMIC ADVISER shunt revision Family History Father CAD (coronary artery disease) Mother CAD (coronary artery disease) Hypertension Sister CAD (coronary artery disease) Diabetes Family/Other Stroke Denies family history of Anesthesia complication Bleeding disorder Social History Smoking and tobacco status: former smoker Quit status (tobacco): has quit using tobacco Alcohol intake: former Physical Exam Narrative: EXAM NARRATIVE: Chronic dementia but answers questions appropriately. Denies chest pain. Has a 1 inch laceration to his forehead approximated with Steri-Strips. No bleeding. Const: COMMON NORMALS: no acute distress, average body habitus, patient oriented x3, no limitations, healthy appearing, alert and well nourished GENERAL APPEARANCE: cooperative, comfortable, well kempt and well developed ORIENTATION/CONSCIOUSNESS: Yes awake, Yes oriented to person, Yes oriented to place and Yes oriented to time HENMT: COMMON NORMALS: normocephalic, external ears normal and Normal external nose present HEAD & SCALP: normal to inspection and normocephalic NOSE: Normal external nose present EXTERNAL EAR: Yes external ears normal MOUTH: Normal oral and palatal mucosa present THROAT: posterior oropharynx normal Eye: COMMON NORMALS: Equal, round and reactive pupils present and EOMs intact bilaterally GENERAL EYE: appearance normal, both eyes and all related structures PUPIL: Yes Equal, round and reactive pupils present Neck/C-Spine: COMMON NORMALS: full ROM, no lymphadenopathy, no meningeal signs and no JVD GENERAL: Yes normal visual inspection Lymph: LYMPHATIC: no lymphadenopathy noted Chest: COMMONS NORMALS: normal inspection of the chest and normal palpation of entire chest wall Resp: COMMON NORMALS: normal respiratory effort, No retractions, No use of accessory muscles, clear to auscultation bilaterally and percussion normal EFFORT & INSPECTION: Yes able to speak in complete sentences AUSCULTATION: clear to auscultation bilaterally PERCUSSION: percussion normal Cardio: COMMON NORMALS: no JVD, regular rate, regular rhythm, S1 normal heart sound present, S2 normal heart sound present and Peripheral pulses 2+ throughout RATE: regular rate RHYTHM: regular rhythm HEART SOUNDS: S1 normal heart sound present and S2 normal heart sound present PERIPHERAL PULSES: Peripheral pulses 2+ throughout GI: COMMON NORMALS: Normal to inspection, nondistended, normoactive bowel sounds present, Soft to palpation, non-tender and no masses INSPECTION: Yes normal to inspection PALPATION: Yes Soft to palpation : COMMON NORMALS: Yes no CVA tenderness BLADDER/KIDNEY EXAM: Yes no CVA tenderness Back/Pelvis: COMMON NORMALS: no CVA tenderness, thoracic and lumbar spine normal to inspection, no thoracic nor lumbar tenderness and thoraco-lumbar ROM normal Extremity: COMMON NORMALS: normal to inspection, full ROM, capillary refill normal, no joint enlargement and no pedal edema GENERAL: Yes normal exam except as noted Neuro: COMMON NORMALS: patient oriented x3, CN's II-XII intact bilaterally, moves all extremities, no focal motor deficits, no sensory deficits noted and gait normal SENSORIUM/ORIENTATION: Yes alert, Yes oriented to person, Yes oriented to place and Yes oriented to time MENINGEAL SIGNS: Yes no meningeal signs Psych: COMMON NORMALS: mental status grossly normal, Normal thought process present, cooperative, normal affect and speech normal APPEARANCE: Yes well kempt ATTITUDE: Yes calm SPEECH: Yes normal speech THOUGHT PROCESS: Normal thought process present Skin: COMMON NORMALS: no rashes or lesions noted NARRATIVE SKIN EXAM: 1 inch laceration to forehead approximated with Steri-Strips well. No bleeding. GENERAL SKIN EXAM: no rashes or lesions noted Course Vital Signs: Vital signs: Vital Signs Pulse Rate 72 05/14/20 22:25 Respiratory Rate 13 05/14/20 22:25 Blood Pressure 124/78 05/14/20 22:25 Pulse Oximetry 94 05/14/20 22:25 MDM - Fall MDM Narrative: Medical decision making narrative: The patient has a 1 inch laceration after a fall at his [place] [facility]. The laceration is on his forehead and has been approximated with Steri-Strips at the [place] [facility] nicely. There is no bleeding. CT of his head shows an artifact versus small hemorrhage. Discussed with Dr. Harris neurosurgery at [facility] who thinks it is an artifact and that the head CT is normal. Patient stable for discharge back to [place] [facility]. Discharge Plan Discharge Patient Disposition: Home Clinical Impression: Laceration of head, Fall Condition: Stable Prescriptions: No Action tamsulosin [Flomax] 0.4 mg capsule 0.4 mg PO DAILY@0700 RF: 0 risperidone 0.5 mg tablet 0.5 mg PO TID@0800,1400,2000 RF: 0 esomeprazole magnesium [Nexium] 40 mg capsule,delayed release(DR/EC) 40 mg PO DAILY RF: 0 metolazone 2.5 mg tablet 2.5 mg PO DAILY@0730 RF: 0 atorvastatin 40 mg tablet 40 mg PO DAILY@1700 RF: 0 senna 8.6 mg Tablet 8.6 mg PO BID PRN (Reason: Constipation) RF: 0 acetaminophen 325 mg Tablet 650 mg PO Q4H PRN (Reason: PAIN/FEVER) RF: 0 albuterol sulfate 2.5 mg /3 mL (0.083 %) solution for nebulization 2.5 mg inhalation Q4H PRN (Reason: COPD) RF: 0 Miralax 17 gram Powder In Packet 17 g PO DAILY RF: 0 isosorbide mononitrate 30 mg tablet extended release 24 hr 30 mg PO DAILY@0800 RF: 0 bisacodyl 10 mg/30 mL Enema 10 mg DE DAILY PRN (Reason: Constipation) RF: 0 alprazolam 0.25 mg tablet 0.25 mg PO BID PRN (Reason: Anxiety) RF: 0 Milk of Magnesia 400 mg/5 mL Suspension 400 mg PO DAILY PRN (Reason: Constipation) RF: 0 furosemide 80 mg tablet 80 mg PO DAILY@0800 RF: 0 Enema Disposable 19-7 gram/118 mL Enema 118 ml DE DAILY PRN (Reason: Constipation) RF: 0 Nitrostat 0.4 mg Tablet, Sublingual 0.4 mg SUBLINGUAL Q5M PRN (Reason: Chest Pain) RF: 0 metoprolol tartrate 25 mg Tablet 25 mg PO BID@0800,1999 RF: 0 Cough Drops 5.8 mg Lozenge 5.8 mg PO Q6H PRN (Reason: Dry Mouth) RF: 0 furosemide 40 mg tablet 40 mg PO DAILY@1400 RF: 0 Eliquis 5 mg tablet 5 mg PO BID@0800,2000 RF: 0 Discharge Orders: Discharge ED (Routine); Ordered 05/14/20 Ordered By: Lele Zhou Referrals: Ashley Medrano FNP [Primary Care Provider] - Discharge Diet: Advance as tolerated Discharge Activity: Resume usual activity Patient Instructions: Scalp Laceration, Laceration (ED), Opioid Safety Activity Restrictions/Additional Instructions: Have a small laceration to her scalp which has been closed with Steri-Strips and should heal nicely. The CT of your head is normal. Please continue to take your medications and avoid falls at the [place] [facility]. Return to the ER with worsening symptoms Coding Level of Care Code ED Milking Machine Technician for Irma Delgado
--- NOTE | 2020-05-14 19:28 | ECG_ITS ---
[facility] Test Date: 2020-05-14 Pat Name: Willie Ram Department: Room: Gender: Male Audiologist: : 1940 Requested By: Lele Zhou Order Number: [id number] Kevin MD: Wilton Griffin M.D. Measurements Intervals [place] Rate: 69 P: IN: QRS: -27 QRSD: 100 T: 241 QT: 417 QTc: 448 Interpretive Statements ATRIAL FIBRILLATION BORDERLINE LEFT AXIS DEVIATION [QRS AXIS < -20] LOW QRS VOLTAGE IN PRECORDIAL LEADS [QRS DEFLECTION < 1.0 mV IN CHEST LEADS] NONSPECIFIC ST & T-WAVE ABNORMALITY Compared to ECG 12/14/2019 20:52:35 No significant changes Electronically Signed On 05-15-2020 20:22:51 CDT by Wilton Griffin M.D. [id number]
--- NOTE | 2020-05-14 19:28 | XRR_ITS ---
PROCEDURE INFORMATION: Exam: XR Chest Exam date and time: 05/14/2020 7:29 PM Age: 79 years old Clinical indication: Injury or trauma; Fall; Blunt trauma (contusions or hematomas); Injury date: 05/14/2020; Prior surgery; Surgery type: Shunt, stent; Additional info: Wheezing TECHNIQUE: Imaging protocol: XR of the chest Views: 1 view. COMPARISON: CR XR chest 1V portable [id number] 12/14/2019 5:26 PM FINDINGS: Tubes, catheters and devices: Left -sided ventriculoperitoneal shunt tubing. Lungs: Unremarkable. No consolidation. Pleural spaces: Unremarkable. No pleural effusion. No pneumothorax. Heart/Mediastinum: Unremarkable. No cardiomegaly. Bones/joints: Mild dextroscoliosis. Other findings: Patient rotation to the right. XR/XR chest 1V portable [id number] IMPRESSION: No acute findings.
[2020-05-14] MEDS: tetanus-dipt-pertussis 0.5 mL SDV IM (20:48)
[2020-05-14 21:05] VITALS: PULSE 68; RESP 17; O2SAT 94
[2020-05-14] MEDS: albuterol 8 gm MDI 2 PUFF INHALATION (21:05)
[2020-05-14 21:12] VITALS: PULSE 69
[2020-05-14 22:25] VITALS: BP 124/78; PULSE 72; RESP 13; O2SAT 94
--- NOTE | 2020-05-14 23:03 | PC.NURSE ---
patient report received from NARGIS Ascencio and care transferred to NARGIS Mitchell
[2020-05-15] VITALS: BP 114/64; PULSE 67
[2020-05-15 02:08] VITALS: BP 123/66; PULSE 73
[2020-05-15 02:48] VITALS: BP 114/57; PULSE 66; RESP 17; O2SAT 95
[2020-05-15 04:18] VITALS: BP 103/57; PULSE 68; RESP 15; O2SAT 91
[2020-05-15 04:26] VITALS: BP 121/70; PULSE 71; RESP 15; O2SAT 95
[2020-05-15 06:04] VITALS: BP 115/67; PULSE 73
== END 2020-05-15 09:32 | disposition home or self-care (01) ==
PROVIDERS: Emergency Provider Family Medicine; PCP Nurse Practitioner Family
DX: S01.81XA Laceration without foreign body of other part of head, initial encounter (principal); W06.XXXA Fall from bed, initial encounter; Z79.01 Long term (current) use of anticoagulants; I48.91 Unspecified atrial fibrillation; I11.0 Hypertensive heart disease with heart failure; I50.9 Heart failure, unspecified; J44.9 Chronic obstructive pulmonary disease, unspecified; Z86.73 Personal history of transient ischemic attack (TIA), and cerebral infarction without residual deficits; E11.9 Type 2 diabetes mellitus without complications; E78.5 Hyperlipidemia, unspecified; G31.83 Neurocognitive disorder with Lewy bodies; F02.80 Dementia in other diseases classified elsewhere, unspecified severity, without behavioral disturbance, psychotic disturbance, mood disturbance, and anxiety; Z87.891 Personal history of nicotine dependence; Z23 Encounter for immunization
CPT/HCPCS: 70450; 71045; 90471; 90715; 93005; 94640; 99284; J3535

== ENCOUNTER 2020-05-28 18:04 | Inpatient (IN) | payer MEDICARE, MEDICAID, SELFPAY ==
[2020-05-28 18:20] VITALS: BP 147/72; PULSE 77; RESP 16; TEMP 36.7; O2SAT 95; BMI 23.7
--- NOTE | 2020-05-28 18:27 | XRR_ITS ---
PROCEDURE INFORMATION: Exam: XR Chest Exam date and time: 05/28/2020 6:48 PM Age: 79 years old Clinical indication: Other: Reduced breath sounds TECHNIQUE: Imaging protocol: XR of the chest. Views: 1 view. COMPARISON: CR XR chest 1V portable [id number] 05/14/2020 7:37 PM FINDINGS: Tubes, catheters and devices: A PRINTED CIRCUIT BOARD PCB DRAFTSMAN shunt tube traverses the left hemithorax. Lungs: The lungs are clear. Pleural spaces: Unremarkable. No pleural effusion. No pneumothorax. Heart/Mediastinum: The heart is normal in size. Left coronary artery calcifications are appreciated. Bones/joints: Unremarkable. XR/XR chest 1V portable [id number] IMPRESSION: 1. No acute pulmonary abnormality. 2. Coronary artery disease.
--- NOTE | 2020-05-28 18:27 | CTR_ITS ---
PROCEDURE INFORMATION: Exam: CT Head Without Contrast Exam date and time: 05/28/2020 6:47 PM Age: 79 years old Clinical indication: Altered mental status/memory loss; Confusion or disorientation; Prior surgery; Surgery date: 6+ months; Surgery type: Breastfeeding Peer Counselor shunt; Patient HX: AMS - lethargy - non verbal TECHNIQUE: Imaging protocol: Computed tomography of the head without contrast. Radiation optimization: All CT scans at this facility use at least one of these dose optimization techniques: automated exposure control; mA and/or kV adjustment per patient size (includes targeted exams where dose is matched to clinical indication); or iterative reconstruction. COMPARISON: CT head wo con* [id number] 05/14/2020 8:05 PM RADIATION DOSE METRICS: Total DLP (mGy-cm): 972.08 FINDINGS: Tubes, catheters and devices: Left frontal MEDICAL OFFICE SUPERVISOR shunt tube is stable in position. Brain: Mild atrophy and white matter chronic microvascular changes are noted. No hemorrhage or evidence of acute infarction is seen. Cerebral ventricles: Ventricular size is unchanged. No hydrocephalus. Bones/joints: Unremarkable. No acute fracture. Paranasal sinuses: Visualized sinuses are unremarkable. No fluid levels. Mastoid air cells: Visualized mastoid air cells are well aerated. Soft tissues: Unremarkable. CT/CT head wo con* [id number] IMPRESSION: No acute intracranial abnormality. Radiation Dose CTDIVOL = (mGy): DLP = 972.08 (mGy-cm)
[2020-05-28 18:43] LABS: Basophils % 0.2 %; Eosinophils % 0.2 %; Hematocrit 50.8 % (42.0-52.0); Hemoglobin 14.6 g/dL (11.7-16.6); Lymphocytes # 1.4 10^3/uL (0.8-4.8); Mean Corpuscular HGB Conc 28.7 g/dL (30.0-36.0); Mean Corpuscular Hemoglobin 21.7 pg (28.0-34.0); Mean Corpuscular Volume 75.4 fL (80-94); Mean Platelet Volume 10.9 fL (7.4-10.4); Monocytes # 1.7 10^3/uL (0.2-0.9); Monocytes % 9.8 %; Neutrophils # 13.95 10^3/uL (1.8-7.7); Neutrophils % 81.3 %; Nucleated Red Blood Cells % 0 %; Platelet Count 310 10^3/cmm (130-400); Red Blood Count 6.74 10^6/uL (4.1-5.3); Red Cell Distribution Width 20.9 % (12.1-15.1); White Blood Count 17.2 10^3/uL (4.0-10.0)
[2020-05-28] MEDS: levofloxacin-dextrose 5 % 500 MG/100 ML PREMIX 100 MG IV (18:45)
[2020-05-28 18:59] LABS: D Dimer 0.33 ug/mIFEU (0-0.59)
[2020-05-28 19:03] LABS: Lactate (Lactic Acid level) 2.2 mmol/L (0.5-2.2)
[2020-05-28 19:08] LABS: Troponin(5th) Baseline 120 ng/L (0-15)
[2020-05-28 19:13] LABS: Alanine Aminotransferase 12 U/L (0-41); Albumin Level 4.6 g/dL (3.5-5.2); Alkaline Phosphatase 100 IU/L (40-130); Aspartate Amino Transferase 16 U/L (0-40); Calcium 9.1 mg/dL (8.5-10.5); Carbon Dioxide 35 mmol/L (22-29); Chloride 91 mmol/L (98-107); Globulin 3.5 g/dL (1.3-4.6); Glucose 127 mg/dL (65-115); NT Pro B Type Natriuretic Pept 2241 pg/mL (0-450); Osmolality Calculated 332 mOsm/kg (285-295); Sodium 146 mmol/L (136-145); Total Protein 8.1 g/dL (6.6-8.7)
[2020-05-28 19:15] LABS: Blood Urea Nitrogen 91 mg/dL (8-23); Creatine Phosphokinase 408 U/L (39-308)
--- NOTE | 2020-05-28 19:15 | PC.NURSE ---
patient back from CT
[2020-05-28] MEDS: lidocaine 1% 5 ML in potassium chloride premix 100 ML 25 ML IV ×2 (19:43→23:48)
[2020-05-28] MEDS: lactated ringers 1,000 ML 999 ML IV (19:48)
[2020-05-28 20:08] VITALS: BP 121/65; PULSE 87; RESP 24; O2SAT 95
--- NOTE | 2020-05-28 20:09 | ED_ITS ---
HPI - Recheck/Abnormal Lab/Rx General: Chief Complaint: Recheck/Abnormal Lab/Rx Stated Complaint: LOW POTASSIUM Time Seen by Provider: 05/28/20 18:04 History of Present Illness: HPI narrative: The patient is a 79-year-old male with past medical history hypertension, diabetes, COPD, CHF, CAD, who comes to the ER from the care home for hypokalemia where it was reported his potassium was 2. They said they have been treating his low potassium for the past 48 hours with medications at the care home however they have been unable to bring it up. His potassium was too early this morning at the care home and he arrived around 6 PM. He is lethargic and nonverbal which is a change from his baseline mental status. Initial visit (ago): day(s) (2) Review of Systems General: Reports: ROS unobtainable due to medical condition and ROS unobtainable due to mental status PFS ED PFSH: Medical History (Updated 05/29/20 @ 10:58 by Ju Carroll MD) Anemia Anticoagulation adequate with anticoagulant therapy eliquis, on for afib and history of dvt/PE ASHD (arteriosclerotic heart disease) Atrial fibrillation was taken off anticoagulation due to GI bleed, has IVC filter Piper's esophagus BPH (benign prostatic hyperplasia) Carcinoma of esophagus radiation esophagitis CHF (congestive heart failure) CHF (congestive heart failure), NYHA class I COPD (chronic obstructive pulmonary disease) CVA (cerebral vascular accident) Diabetes Dyslipidemia (high LDL; low HDL) Essential hypertension Gait disturbance Lewy body dementia with behavioral disturbance NATALI (obstructive sleep apnea) Pneumonia Post laminectomy syndrome Pulmonary emboli Surgical History (Updated 05/29/20 @ 10:58 by Ju Carroll MD) [place] filter in place History of esophagogastroduodenoscopy (EGD) (07/24/19) resolution of Grade D esophagitis, no evidence of carcinoma Previous back surgery S/P angioplasty with stent S/P appendectomy S/P hernia repair S/P tonsillectomy 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 Aicha Roche UNDERGROUND MINE MACHINERY MECHANIC shunt revision Family History Father CAD (coronary artery disease) Mother CAD (coronary artery disease) Hypertension Sister CAD (coronary artery disease) Diabetes Family/Other Stroke Denies family history of Anesthesia complication Bleeding disorder Social History Smoking and tobacco status: former smoker Quit status (tobacco): has quit using tobacco Alcohol intake: former Physical Exam Const: COMMON NORMALS: alert GENERAL APPEARANCE: lethargic and ill appearing NUTRITIONAL APPEARANCE: obese ORIENTATION/CONSCIOUSNESS: Yes awake and Yes lethargic HENMT: COMMON NORMALS: normocephalic, external ears normal and Normal external nose present HEAD & SCALP: normal to inspection and normocephalic NOSE: Normal external nose present EXTERNAL EAR: Yes external ears normal MOUTH: Normal oral and palatal mucosa present THROAT: posterior oropharynx normal Eye: COMMON NORMALS: Equal, round and reactive pupils present and EOMs intact bilaterally GENERAL EYE: appearance normal, both eyes and all related structures PUPIL: Yes Equal, round and reactive pupils present Neck/C-Spine: COMMON NORMALS: full ROM, no lymphadenopathy, no meningeal signs and no JVD GENERAL: Yes normal visual inspection Lymph: LYMPHATIC: no lymphadenopathy noted Chest: COMMONS NORMALS: normal inspection of the chest and normal palpation of entire chest wall Resp: COMMON NORMALS: normal respiratory effort, No retractions, No use of accessory muscles, clear to auscultation bilaterally and percussion normal E FFORT & INSPECTION: Yes able to speak in complete sentences AUSCULTATION: clear to auscultation bilaterally PERCUSSION: percussion normal Cardio: COMMON NORMALS: no JVD, regular rate, regular rhythm, S1 normal heart sound present, S2 normal heart sound present and Peripheral pulses 2+ throughout RATE: regular rate RHYTHM: regular rhythm HEART SOUNDS: S1 normal heart sound present and S2 normal heart sound present PERIPHERAL PULSES: Peripheral pulses 2+ throughout GI: COMMON NORMALS: Normal to inspection, nondistended, normoactive bowel sounds present, Soft to palpation, non-tender and no masses INSPECTION: Yes normal to inspection PALPATION: Yes Soft to palpation : COMMON NORMALS: Yes no CVA tenderness BLADDER/KIDNEY EXAM: Yes no CVA tenderness Back/Pelvis: COMMON NORMALS: no CVA tenderness, thoracic and lumbar spine normal to inspection, no thoracic nor lumbar tenderness and thoraco-lumbar ROM normal Extremity: COMMON NORMALS: normal to inspection, full ROM, capillary refill normal, no joint enlargement and no pedal edema GENERAL: Yes normal exam except as noted Neuro: TAZ COMA SCALE: document GCS findings Taz coma scale eye opening: Spontaneous Taz coma scale verbal response: Words Paris coma scale motor response: Localising [place] coma scale total score: 12 SENSORIUM/ORIENTATION: Yes alert and Yes lethargic MENINGEAL SIGNS: Yes no meningeal signs GAIT: Yes Unable to assess gait MOTOR EXAM: 5/5 motor strength present throughout OTHER: moves all extremities Skin: COMMON NORMALS: no rashes or lesions noted GENERAL SKIN EXAM: no rashes or lesions noted Course Vital Signs: Vital signs: Vital Signs Temperature 98.2 F 05/29/20 08:00 Pulse Rate 85 05/29/20 08:28 Respiratory Rate 16 05/29/20 08:28 Blood Pressure 129/76 05/29/20 08:00 Pulse Oximetry 95 05/29/20 08:28 MDM - Recheck/Abnormal Lab/Rx MDM Narrative: Medical decision making narrative: Willie came in this evening lethargic with severely low potassium, elevated BUN and creatinine. He is likely severely dehydrated. He was given a liter of LR and 80 IV of potassium and after the liter he began to make eye contact and attempt to talk. He will be kept observation. Dr. Dunn accepts Lab Data: Labs: Lab Results 05/28/20 05/28/20 05/28/20 Range/Units 18:38 18:38 18:38 WBC 17.2 H (4.0-10.0) 10^3/ uL RBC 6.74 H (4.1-5.3) 10^6/u L Hgb 14.6 (11.7-16.6) g/dL Hct 50.8 (42.0-52.0) % MCV 75.4 L (80-94) fL MCH 21.7 L (28.0-34.0) pg MCHC 28.7 L (30.0-36.0) g/dL RDW 20.9 H (12.1-15.1) % Plt Count 310 (130-400) 10^3/c mm MPV 10.9 H (7.4-10.4) fL Neut % (Auto) 81.3 % Lymph % (Auto) 8.0 % Wallace % (Auto) 9.8 % Eos % (Auto) 0.2 % Baso % (Auto) 0.2 % Neut # (Auto) 13.95 H (1.8-7.7) 10^3/u L Lymph # (Auto) 1.4 (0.8-4.8) 10^3/u L Wallace # (Auto) 1.7 H (0.2-0.9) 10^3/u L Eos # (Auto) 0.0 (0.0-0.8) 10^3/u L Baso # (Auto) 0.0 (0.0-0.1) 10^3/u L Nucleated RBC % (a uto) 0 % Nucleated RBCs # 0.0 /100WBC D-Dimer (0-0.59) ug/mIFE U Sodium 146 H (136-145) mmol/L Potassium 2.0 L* (3.5-5.1) mmol/L Chloride 91 L (98-107) mmol/L Carbon Dioxide 35 H (22-29) mmol/L Anion Gap 22.0 H (5-19) BUN 91 H* D (8-23) mg/dL Creatinine 1.8 H (0.7-1.2) mg/dL GFR Calculation Not Reportable Glucose 127 H (65-115) mg/dL Calculated Osmolal ity 332 H (285-295) mOsm/k g Lactate (0.5-2.2) mmol/L Calcium 9.1 (8.5-10.5) mg/dL Total Bilirubin 1.0 (0.15-1.2) mg/dL AST 16 (0-40) U/L ALT 12 (0-41) U/L Alkaline Phosphata se 100 (40-130) IU/L Creatine Kinase 408 H* (39-308) U/L Troponin T Baselin e 120 H* (0-15) ng/L Troponin T 120 Min chicken ranch (0-15) ng/L Delta Troponin T (0-10) ABS# NT-Pro-B Natriuret Pep 2241 H (0-450) pg/mL Total Protein 8.1 (6.6-8.7) g/dL Albumin 4.6 (3.5-5.2) g/dL Globulin 3.5 (1.3-4.6) g/dL Urine Color (Yellow) Urine Appearance (CLEAR) Urine pH (5-7) Ur Specific Gravit y (1.005-1.030) Urine Protein (Negative) Urine Glucose (UA) (Normal) Urine Ketones (Negative) Urine Blood (Negative) Urine Nitrate (Negative) Urine Bilirubin (Negative) Urine Urobilinogen (Negative) mg/dL Ur Leukocyte Erica ase (Negative) SARS-CoV-2 Ag (Rap id) (Negative) 05/28/20 05/28/20 05/28/20 Range/Units 18:38 18:38 20:00 WBC (4.0-10.0) 10^3/ uL RBC (4.1-5.3) 10^6/u L Hgb (11.7-16.6) g/dL Hct (42.0-52.0) % MCV (80-94) fL MCH (28.0-34.0) pg MCHC (30.0-36.0) g/dL RDW (12.1-15.1) % Plt Count (130-400) 10^3/c mm MPV (7.4-10.4) fL Neut % (Auto) % Lymph % (Auto) % Wallace % (Auto) % Eos % (Auto) % Baso % (Auto) % Neut # (Auto) (1.8-7.7) 10^3/u L Lymph # (Auto) (0.8-4.8) 10^3/u L Wallace # (Auto) (0.2-0.9) 10^3/u L Eos # (Auto) (0.0-0.8) 10^3/u L Baso # (Auto) (0.0-0.1) 10^3/u L Nucleated RBC % (a uto) % Nucleated RBCs # /100WBC D-Dimer 0.33 (0-0.59) ug/mIFE U Sodium (136-145) mmol/L Potassium (3.5-5.1) mmol/L Chloride (98-107) mmol/L Carbon Dioxide (22-29) mmol/L Anion Gap (5-19) BUN (8-23) mg/dL Creatinine (0.7-1.2) mg/dL GFR Calculation Glucose (65-115) mg/dL Calculated Osmolal ity (285-295) mOsm/k g Lactate 2.2 (0.5-2.2) mmol/L Calcium (8.5-10.5) mg/dL Total Bilirubin (0.15-1.2) mg/dL AST (0-40) U/L ALT (0-41) U/L Alkaline Phosphata se (40-130) IU/L Creatine Kinase (39-308) U/L Troponin T Baselin e (0-15) ng/L Troponin T 120 Min chicken ranch (0-15) ng/L Delta Troponin T (0-10) ABS# NT-Pro-B Natriuret Pep (0-450) pg/mL Total Protein (6.6-8.7) g/dL Albumin (3.5-5.2) g/dL Globulin (1.3-4.6) g/dL Urine Color Yellow (Yellow) Urine Appearance Clear (CLEAR) Urine pH 5 (5-7) Ur Specific Gravit y 1.010 (1.005-1.030) Urine Protein Neg (Negative) Urine Glucose (UA) Norm (Normal) Urine Ketones Negative (Negative) Urine Blood Neg (Negative) Urine Nitrate Negative (Negative) Urine Bilirubin Neg (Negative) Urine Urobilinogen Norm (Negative) mg/dL Ur Leukocyte Erica ase Negative (Negative) SARS-CoV-2 Ag (Rap id) (Negative) 05/28/20 05/28/20 Range/Units 20:29 20:30 WBC (4.0-10.0) 10^3/ uL RBC (4.1-5.3) 10^6/u L Hgb (11.7-16.6) g/dL Hct (42.0-52.0) % MCV (80-94) fL MCH (28.0-34.0) pg MCHC (30.0-36.0) g/dL RDW (12.1-15.1) % Plt Count (130-400) 10^3/c mm MPV (7.4-10.4) fL Neut % (Auto) % Lymph % (Auto) % Wallace % (Auto) % Eos % (Auto) % Baso % (Auto) % Neut # (Auto) (1.8-7.7) 10^3/u L Lymph # (Auto) (0.8-4.8) 10^3/u L Wallace # (Auto) (0.2-0.9) 10^3/u L Eos # (Auto) (0.0-0.8) 10^3/u L Baso # (Auto) (0.0-0.1) 10^3/u L Nucleated RBC % (a uto) % Nucleated RBCs # /100WBC D-Dimer (0-0.59) ug/mIFE U Sodium (136-145) mmol/L Potassium (3.5-5.1) mmol/L Chloride (98-107) mmol/L Carbon Dioxide (22-29) mmol/L Anion Gap (5-19) BUN (8-23) mg/dL Creatinine (0.7-1.2) mg/dL GFR Calculation Glucose (65-115) mg/dL Calculated Osmolal ity (285-295) mOsm/k g Lactate (0.5-2.2) mmol/L Calcium (8.5-10.5) mg/dL Total Bilirubin (0.15-1.2) mg/dL AST (0-40) U/L ALT (0-41) U/L Alkaline Phosphata se (40-130) IU/L Creatine Kinase (39-308) U/L Troponin T Baselin e (0-15) ng/L Troponin T 120 Min chicken ranch 113.4 H (0-15) ng/L Delta Troponin T -6.6 L (0-10) ABS# NT-Pro-B Natriuret Pep (0-450) pg/mL Total Protein (6.6-8.7) g/dL Albumin (3.5-5.2) g/dL Globulin (1.3-4.6) g/dL Urine Color (Yellow) Urine Appearance (CLEAR) Urine pH (5-7) Ur Specific Gravit y (1.005-1.030) Urine Protein (Negative) Urine Glucose (UA) (Normal) Urine Ketones (Negative) Urine Blood (Negative) Urine Nitrate (Negative) Urine Bilirubin (Negative) Urine Urobilinogen (Negative) mg/dL Ur Leukocyte Erica ase (Negative) SARS-CoV-2 Ag (Rap id) Negative (Negative) Discharge Plan Discharge Patient Disposition: Placed in Observation Admit Provider: Alexandria Dunn Clinical Impression: Dehydration, Hypokalemia, STEVEN (acute kidney injury) Coding Level of Care Code ED Generator Rebuilder for g Fwd Exam Comprehensive
--- NOTE | 2020-05-28 20:11 | ECG_ITS ---
[facility] Test Date: 2020-05-28 Pat Name: Willie Ram Department: Room: Gender: Male [place]: : 1940 Requested By: Lele Zhou Order Number: [id number] Kevin MD: Wilton Griffin M.D. Measurements Intervals [place] Rate: 77 P: MD: QRS: -62 QRSD: 141 T: 102 QT: 324 QTc: 368 Interpretive Statements ATRIAL FIBRILLATION INTRAVENTRICULAR CONDUCTION DELAY [130+ ms QRS DURATION] Compared to ECG 05/14/2020 22:11:50 Intraventricular conduction delay now present T-wave abnormality no longer present Electronically Signed On 05-28-2020 21:10:39 CDT by Wilton Griffin M.D. [id number]
[2020-05-28 20:15] LABS: Add Urine Microscopic? NO; Charge for UA Resulting for Rev
[2020-05-28 20:27] LABS: Bilirubin Urine Neg (Negative); Blood Urine Neg (Negative); Glucose Urine UA Norm (Normal); Ketones Urine Negative (Negative); Leukocyte Esterase Urine Negative (Negative); Nitrate Urine Negative (Negative); Protein Urine Neg (Negative); Urine Appearance Clear (CLEAR); Urine Color Yellow (Yellow); Urobilinogen Urine Norm (Negative); pH Urine 5 (5-7)
--- NOTE | 2020-05-28 20:30 | CTR_ITS ---
PROCEDURE INFORMATION: Exam: CTA Chest With Contrast Exam date and time: 05/28/2020 9:01 PM Age: 79 years old Clinical indication: Shortness of breath; Prior surgery; Surgery type: Cardiac stents. 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 Hernia repair. Appy. ; Patient HX: AMS. Hypoxia. Elevated wbc. Hypokalemia. Elevated troponin. ; Additional info: Dyspnea; Hypoxia TECHNIQUE: Imaging protocol: Computed tomographic angiography of the chest with contrast. 3D rendering (Not supervised by radiologist): MIP and/or 3D reconstructed images were created by the technologist. Total images: 1175 Radiation optimization: All CT scans at this facility use at least one of these dose optimization techniques: automated exposure control; mA and/or kV adjustment per patient size (includes targeted exams where dose is matched to clinical indication); or iterative reconstruction. Contrast material: VISI 320; Contrast volume: 95 ml; Contrast route: INTRAVENOUS (IV); COMPARISON: CTA Chest w Abd/Pel w* 07/01/2018 1:45 PM RADIATION DOSE METRICS: Total DLP (mGy-cm): 1738 FINDINGS: Pulmonary arteries: No visible evidence of pulmonary embolism/pulmonary arterial thrombus. Aorta: The thoracic aorta is nonaneurysmal. Moderate arterial sclerotic disease. Lungs: No visible active interstitial or alveolar airspace disease. Mild COPD/chronic bronchitis. Pleural spaces: Unremarkable. No pneumothorax. No pleural effusion. Heart: Advanced 3 vessel coronary artery disease. No cardiomegaly. No visible pericardial effusion. Mediastinal space: Small hiatal hernia. Lymph nodes: No visible evidence of active mediastinal or hilar lymphadenopathy. No significant overall change since 07/01/2018. Bones/joints: No visible active or acute osseous pathology. Degenerative disease of the spine. Increased kyphosis. Soft tissues: Unremarkable. IMPRESSION: 1. No visible evidence of pulmonary embolism/pulmonary arterial thrombus. 2. Advanced 3 vessel coronary artery disease. PROCEDURE INFORMATION: Exam: CT Abdomen And Pelvis With Contrast Exam date and time: 05/28/2020 9:01 PM Age: 79 years old Clinical indication: Shortness of breath; Prior surgery; Surgery type: Cardiac stents. 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 Hernia repair. Appy. ; Patient HX: AMS. Hypoxia. Elevated wbc. Hypokalemia. Elevated troponin. ; Additional info: Dyspnea; Hypoxia TECHNIQUE: Imaging protocol: Computed tomography of the abdomen and pelvis with contrast. Radiation optimization: All CT scans at this facility use at least one of these dose optimization techniques: automated exposure control; mA and/or kV adjustment per patient size (includes targeted exams where dose is matched to clinical indication); or iterative reconstruction. Contrast material: VISI 320; Contrast volume: 95 ml; Contrast route: INTRAVENOUS (IV); COMPARISON: CTA Chest w Abd/Pel w* 07/01/2018 1:45 PM RADIATION DOSE METRICS: Total DLP (mGy-cm): 1738 FINDINGS: Tubes, catheters and devices: Ventriculoperitoneal shunt. Liver: No visible hepatic mass. Stable tiny hepatic cyst right hepatic lobe. Gallbladder and bile ducts: Unremarkable. No calcified stones. No ductal dilation. Pancreas: Pancreas unremarkable. No visible pancreatic ductal ectasia. Spleen: Normal. No splenomegaly. Adrenal glands: Adrenal glands unremarkable. Kidneys and ureters: No hydronephrosis or perinephric fluid. No visible nephrolithiasis. No visible ureterolithiasis. Stomach and bowel: Fecal impaction. Constipation. Nonobstructive bowel pattern. No visible adynamic or reactive ileus. Appendix: No evidence of appendicitis. Intraperitoneal space: No visible pneumoperitoneum or intraperitoneal ascites. Vasculature: IVC filter. The abdominal aorta is nonaneurysmal. Moderately advanced arterial sclerotic disease. Lymph nodes: Unremarkable. No enlarged lymph nodes. Urinary bladder: [place] catheter within the decompressed urinary bladder. Reproductive: Prostate hypertrophy. Bones/joints: No visible active or acute osseous abnormality. Scoliosis. Degenerative disease and degenerative disc disease of the spine. Bone island posterior column left acetabulum a benign finding. Soft tissues: Unremarkable. Other findings: Motion artifact. CT/CT angio chest w abd pel w con IMPRESSION: 1. Currently no visible evidence for acute abdominal or pelvic pathologic process. 2. Constipation with suspected fecal impaction. 3. Other nonurgent, nonemergent, chronic, and age related findings as detailed in text above. COMMENTS: For patients with an IVC filter, recommend assessment for a management plan for the patient's IVC filter. If there is no established management plan, recommend referral to an interventional clinician on a nonemergent basis for evaluation. Radiation Dose CTDIVOL = (mGy): DLP = 1738~1738 (mGy-cm)
[2020-05-28 20:52] LABS: SARS Covid-2 Antigen Negative (Negative)
[2020-05-28] MEDS: iodixanol 320 mg/mL 100mL Btl IV (21:12)
[2020-05-28 22:18] VITALS: BP 119/82; PULSE 86; RESP 22; O2SAT 98
[2020-05-28 22:24] LABS: Troponin 5 2HR Delta -6.6 ABS# (0-10)
[2020-05-28 22:25] LABS: Troponin 5 2HR 113.4 ng/L (0-15)
--- NOTE | 2020-05-28 22:27 | PC.NURSE ---
bp 119/82, hold on 2nd LR bolus per MD verbal order, will continue to monitor
--- NOTE | 2020-05-28 22:28 | PC.NURSE ---
hold on NS 500ml per MD verbal order
--- NOTE | 2020-05-28 22:50 | PM.HP ---
Providers/Chief Complaint Primary Care Provider: DENZEL Cazares Chief Complaint: LOW POTASSIUM History of Present Illness Willie Ram is a 79 year old male with history of esophageal cancer status post radiation, radiation esophagitis, atrial fibrillation not a candidate of anticoagulation due to GI bleed, prison resident presented today with chief complaint of lethargy. As per the nursing report patient was extremely lethargic and tired which is a relatively new finding, his potassium was running low 2.0, he was given 80 mEq today in the morning however he arrived in the ER at 6 PM. Diagnostics in the ER revealed severe electrolyte abnormality potassium 2.0, leukocytosis, no active source of infection, D-dimer unremarkable CTA rule out PE, STEVEN, clinically he looks dry however BNP is high, abnormal creatinine downtrending troponin EKG without ischemic or infarctive changes it is showing atrial fibrillation, without RVR, urine looks normal in the ER he received 80 mEq of potassium along Levaquin 500 mg IV x1, Covid antigen negative head CT chest x-ray unremarkable along chest abdomen pelvis CT scan revealed constipation without any other acute pathologies I called [facility] to get the report nursing stating that for last 4 to 5 days he has not been able to eat well he was constipated for which he received multiple laxatives and last 72 hours he has had loose stools as well no vomiting, he has been gradually getting lethargic, today he was in his bed comfortable when blood was drawn which showed low potassium, recently his Lasix dose was increased as well. Confirmed goals of care he is on palliative care. Review of Systems General: Reports: ROS unobtainable due to medical condition (Hypoactive delirium due to dehydration) Medications/Allergies Home Medications Medication Instructions Recorded Confirmed Last Taken Type risperidone 0.5 mg tablet 0.5 mg PO TID@0800,1400,199902/18/19 05/28/20 05/28/20 History tamsulosin 0.4 mg capsule 0.4 mg PO DAILY@0700 cap 02/18/19 05/28/20 05/28/20 History esomeprazole magnesium 40 mg PO DAILY@0800 10/14/19 05/28/20 05/28/20 History Eliquis 5 mg PO BID@0800,199905/14/20 05/28/20 05/28/20 History acetaminophen 650 mg PO Q4H PRN 05/14/20 05/28/20 Unknown History albuterol sulfate 2.5 mg INHALATION Q4H PRN 05/14/20 05/28/20 Unknown History alprazolam 0.25 mg PO BID PRN 05/14/20 05/28/20 05/12/20 History atorvastatin 40 mg PO DAILY@1700 05/14/20 05/28/20 05/27/20 History bisacodyl 10 mg [place] DAILY PRN 05/14/20 05/28/20 Unknown History furosemide 40 mg PO BID@0800,199905/14/20 05/28/20 05/28/20 History isosorbide mononitrate 30 mg PO DAILY@0800 05/14/20 05/28/20 05/28/20 History magnesium hydroxide [Milk of 400 mg PO DAILY PRN 05/14/20 05/28/20 Unknown History Magnesia] metolazone 2.5 mg PO DAILY@0730 05/14/20 05/28/20 05/28/20 History metoprolol tartrate 25 mg PO BID@0800,199905/14/20 05/28/20 05/28/20 History nitroglycerin [Nitrostat] 0.4 mg SUBLINGUAL Q5M PRN 05/14/20 05/28/20 Unknown History sennosides [senna] 8.6 mg PO BID PRN 05/14/20 05/28/20 Unknown History sodium phosphates [Enema 118 ml [place] DAILY PRN 05/14/20 05/28/20 Unknown History Disposable] menthol [Cough Drops] 1 mg PO Q6H PRN 05/28/20 05/28/20 Unknown History polyethylene glycol 3350 [Miralax] 17 g PO DAILY PRN 05/28/20 05/28/20 Unknown History potassium chloride 40 meq PO BID@0800,199905/28/20 05/28/20 05/28/20 History sulfacetamide sodium [Bleph-10] 2 drp OPHTHALMIC (EYE) Q4H 05/28/20 05/28/20 05/28/20 History Allergies Allergy/AdvReac Type Severity Reaction Status Date / Time adhesive tape Allergy Unknown ALGY-Bliste Verified 12/14/19 17:07 r olanzapine Allergy Unknown Unknown Verified 11/01/20 17:07 PFSH Acute PFSH: Medical History Anemia Anticoagulation adequate with anticoagulant therapy ASHD (arteriosclerotic heart disease) Atrial fibrillation was taken off anticoagulation due to GI bleed, has IVC filter Piper's esophagus BPH (benign prostatic hyperplasia) Carcinoma of esophagus radiation esophagitis CHF (congestive heart failure) CHF (congestive heart failure), NYHA class I COPD (chronic obstructive pulmonary disease) CVA (cerebral vascular accident) Diabetes Dyslipidemia (high LDL; low HDL) Essential hypertension Gait disturbance Lewy body dementia with behavioral disturbance NATALI (obstructive sleep apnea) Pneumonia Post laminectomy syndrome Pulmonary emboli Surgical History [place] filter in place History of esophagogastroduodenoscopy (EGD) (07/24/19) resolution of Grade D esophagitis, no evidence of carcinoma Previous back surgery S/P angioplasty with stent S/P appendectomy S/P hernia repair S/P tonsillectomy FISH MACHINE FEEDER (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 Aicha Roche FISH MACHINE FEEDER shunt revision Family History Father CAD (coronary artery disease) Mother CAD (coronary artery disease) Hypertension Sister CAD (coronary artery disease) Diabetes Family/Other Stroke Denies family history of Anesthesia complication Bleeding disorder Social History Smoking and tobacco status: former smoker Quit status (tobacco): has quit using tobacco Alcohol intake: former Vitals/I&O/Wt Last Vital Signs Temp 98.1 F 05/28/20 18:20 Pulse 86 05/28/20 22:18 Resp 22 H 05/28/20 22:18 BP 119/82 05/28/20 22:18 Pulse Ox 98 05/28/20 22:18 05/28/20 05/28/20 05/28/20 06:59 14:59 22:59 Intake Total 100 / 100 Balance 100 / 100 Weight last 48 hrs Weight 81.647 kg Physical Exam Narrative: EXAM NARRATIVE: elderly male appears more than stated age Clinically very dehydrated Dry cracked lips, not able to follow commands, oriented to himself Crusty eyes bilaterally mild yellow discharge noted Variable S1-S2 Abdomen soft bowel sounds hypoactive, no signs of peritonitis Lower extremity venous stasis dermatitis, dry wrinkled skin no signs of fluid overload Wearing adult diapers Saturating well on room air blood pressure 130s/74 mmHg Neuro exam is limited Bilateral breath sounds no acute respite distress, no audible wheezing or stridor No joint swelling Mild laceration left knee, forehead, no active bleeding Urinary Catheter Management^: [place]: Cath Placed During This Visit: yes Urinary Catheter Date of Insertion: 05/28/20 Urinary Catheter Time of Insertion: 20:10 Data : 05/28/20 18:38 05/28/20 18:38 A&P Assessment and plan (1) Dehydration: Status: Acute (2) STEVEN (acute kidney injury): Status: Acute (3) Hypokalemia: Status: Acute (4) Anticoagulation adequate with anticoagulant therapy: Status: Acute (5) NATALI (obstructive sleep apnea): Status: Acute (6) Lewy body dementia with behavioral disturbance: Status: Acute (7) Dysphagia: Status: Acute Additional A&P Information Dehydration secondary to poor p.o. intake Patient has history of dysphagia, has poor p.o. intake, and last few days Lasix dose was increased as well, this contributed to severe dehydration and STEVEN we will keep him on gentle fluid hydration overnight because of history of heart failure Has encephalopathy secondary to STEVEN, hyperkalemia uremia and dehydration, he is on palliative care highly doubt his candidacy for dialysis, anticipating improvement with fluid resuscitation Hypokalemia with STEVEN Secondary to dehydration Stop Lasix and metolazone Patient getting KCl 80 mEq IV in the ER We will check magnesium level Monitor urine output however [place] catheter is not indicated History of A. fib and PE status post IVC filter placement, Takes Eliquis on a daily basis Continue AV madyson blocking agent Obstructive sleep apnea Would use auto CPAP overnight Goals of care: Reviewed documentation sent from [facility], palliative care Advance diet once he is more awake and alert DVT prophylaxis not indicated due to Eliquis use Attestations Medical Necessity Statement*: Anticipating discharge in less than 48 hours overnight monitoring needed for replacement of electrolytes, fluid hydration for dehydration, patient is on palliative care at [facility] Time Spent in Patient Care: 35 mins Coding Level of Care Code Acute Expanded Duty Dental Assistant for g Fwd Diagnoses Dehydration E86.0 STEVEN (acute kidney injury) N17.9 Hypokalemia E87.6 Anticoagulation adequate with anticoagulant therapy Z79.01 NATALI (obstructive sleep apnea) G47.33 Lewy body dementia with behavioral disturbance G31.83; F02.81 Dysphagia R13.10
[2020-05-28 23:50] VITALS: BP 132/72; PULSE 76; RESP 16; O2SAT 96
[2020-05-29] VITALS (12 sets, daily range): BP systolic 105–147; BP diastolic 67–78; PULSE 71–94; RESP 13–20; TEMP 36.8–37.7; O2SAT 90–97
[2020-05-29 02:08] LABS: Magnesium 3.4 mg/dL (1.7-2.3)
[2020-05-29] MEDS: sulfacetamide 10% Op Soln 15 mL Btl 2 DROP EYE-BOTH ×6 (02:12→21:03)
[2020-05-29 02:27] LABS: ABG PCO2 44.4 mmHg (35-45); Alveolar-Arterial Oxygen Gradi 1.6 mmHg (5-10); Arterial Blood Gas Hematocrit 44.7 % (42-52); Base Excess ABG 18.5 mmol/L (-2.0-2.0); Blood Gas Sample Site Brachial, right; Blood Gas Sample Type Arterial; Carboxyhemoglobin 1.3 %THgb (0.4-20.1); HCO3 ABG 42.6 mmol/L (22-26); HGB O2 Sat 95.9 % (95-100); Ionized Calcium Level - ABG 1.1 mmol/L (1.1-1.4); Methemoglobin 0.6 % (0.4-1.5); Oxygen Device NC; Oxygen Saturation ABG 97.8; PO2 ABG 81.9 mmHg (80.0-100.0); Potassium Level - ABG 2.5 mmol/L (3.5-5.0); Total Hemoglobin 14.6 g/dL (14-18)
[2020-05-29 06:33] LABS: Basophils % 0.3 %; Eosinophils % 0.2 %; Hematocrit 49.8 % (42.0-52.0); Hemoglobin 14.3 g/dL (11.7-16.6); Lymphocytes # 1.2 10^3/uL (0.8-4.8); Lymphocytes % 7.8 %; Mean Corpuscular HGB Conc 28.7 g/dL (30.0-36.0); Mean Corpuscular Hemoglobin 21.6 pg (28.0-34.0); Mean Corpuscular Volume 75.3 fL (80-94); Mean Platelet Volume 11.1 fL (7.4-10.4); Monocytes # 1.5 10^3/uL (0.2-0.9); Neutrophils # 11.98 10^3/uL (1.8-7.7); Neutrophils % 81.4 %; Nucleated Red Blood Cells % 0 %; Platelet Count 272 10^3/cmm (130-400); Red Blood Count 6.61 10^6/uL (4.1-5.3); Red Cell Distribution Width 20.9 % (12.1-15.1); White Blood Count 14.7 10^3/uL (4.0-10.0)
[2020-05-29 06:52] LABS: Anion Gap 16.5 (5-19); Calcium 9.1 mg/dL (8.5-10.5); Carbon Dioxide 37 mmol/L (22-29); Chloride 97 mmol/L (98-107); Glucose 123 mg/dL (65-115); Osmolality Calculated 334 mOsm/kg (285-295); Sodium 148 mmol/L (136-145)
[2020-05-29 07:35] LABS: Blood Urea Nitrogen 87 mg/dL (8-23); Potassium 2.5 mmol/L (3.5-5.1)
--- NOTE | 2020-05-29 09:36 | P.PN_ITS ---
Subjective Subjective: Interval history: History and work-up reviewed. Discussed the case with patient's daughter over the phone. I was not able to reach his . They do not want him to have CPR or intubation or other aggressive life-saving measures but they are okay and actually desire electrolytes and fluid replacements. They would not want a feeding tube. Explained about the positive cardiac enzymes, EKG without acute intervene of all changes and that with his comorbid conditions medical management would be the extent of care recommended for any cardiac abnormalities. I tried to make it very clear that the current laboratory findings were suggestive of somebody who had had decreased oral intake and volume losses with significant acute kidney injury, electrolyte derangements, and alteration in mental status. Explained that this is not an unknown likely presentation in somebody with progressively worsening dementia. Without fluids and electrolyte replacements, patient would assuredly be heading towards . Even with fluids and electrolytes the outcome might be the same either acutely due to not tolerating the volume replacement or recurrently after discharged if he again is unable to take oral intake for a period of time. After discussion, daughter indicated that her and her mother did not want patient to have CPR, intubation or other similar aggressive life-saving measures at the time of but that they were okay and wanted fluid replacement, electrolyte replacement. They will be by later today to see him. Vitals/I&O/Wt Last Vital Signs Temp 98.2 F 05/29/20 08:00 Pulse 85 05/29/20 08:28 Resp 16 05/29/20 08:28 BP 129/76 05/29/20 08:00 Pulse Ox 95 05/29/20 08:28 05/28/20 05/29/20 05/29/20 22:59 06:59 14:59 Intake Total 100 / 100 1210 / 1310 Output Total 725 / 725 350 / 350 Balance 100 / 100 485 / 585 -350 / -350 Weight last 48 hrs Weight 81.647 kg Physical Exam Narrative: EXAM NARRATIVE: Patient will respond to name and touch when administered simultaneously by opening his eyes but does not really respond otherwise. He is very dry appearing. Lips are chapped and mucous membranes are dry. Lungs are actually clear without any rales or wheezes noted. He has a regular rhythm. Abdomen is soft. [place] catheter is in place. Skin has a waxy appearance. No abnormal movements. Urinary Catheter Management^: [place]: Cath Placed During This Visit: yes Urinary Catheter Date of Insertion: 05/28/20 Urinary Catheter Time of Insertion: 20:10 Data : 05/29/20 06:16 05/29/20 06:16 Other Labs: Laboratory Last Values WBC 14.7 10^3/uL (4.0-10.0) H 05/29/20 06:16 RBC 6.61 10^6/uL (4.1-5.3) H 05/29/20 06:16 Hgb 14.3 g/dL (11.7-16.6) 05/29/20 06:16 Hct 49.8 % (42.0-52.0) 05/29/20 06:16 MCV 75.3 fL (80-94) L 05/29/20 06:16 MCH 21.6 pg (28.0-34.0) L 05/29/20 06:16 MCHC 28.7 g/dL (30.0-36.0) L 05/29/20 06:16 RDW 20.9 % (12.1-15.1) H 05/29/20 06:16 Plt Count 272 10^3/cmm (130-400) 05/29/20 06:16 MPV 11.1 fL (7.4-10.4) H 05/29/20 06:16 Neut % (Auto) 81.4 % 05/29/20 06:16 Lymph % (Auto) 7.8 % 05/29/20 06:16 [place] % (Auto) 10.0 % 05/29/20 06:16 Eos % (Auto) 0.2 % 05/29/20 06:16 Baso % (Auto) 0.3 % 05/29/20 06:16 Neut # (Auto) 11.98 10^3/uL (1.8-7.7) H 05/29/20 06:16 Lymph # (Auto) 1.2 10^3/uL (0.8-4.8) 05/29/20 06:16 [place] # (Auto) 1.5 10^3/uL (0.2-0.9) H 05/29/20 06:16 Eos # (Auto) 0.0 10^3/uL (0.0-0.8) 05/29/20 06:16 Baso # (Auto) 0.0 10^3/uL (0.0-0.1) 05/29/20 06:16 Nucleated RBC % (auto) 0 % 05/29/20 06:16 Nucleated RBCs # 0.0 /100WBC 05/29/20 06:16 D-Dimer 0.33 ug/mIFEU (0-0.59) 05/28/20 18:38 Specimen Type Arterial 05/29/20 02:16 Sample Site Brachial, right 05/29/20 02:16 ABG pH 7.59 (7.35-7.45) H* 05/29/20 02:16 ABG pCO2 44.4 mmHg (35-45) 05/29/20 02:16 ABG pO2 81.9 mmHg (80.0-100.0) 05/29/20 02:16 ABG HCO3 42.6 mmol/L (22-26) H 05/29/20 02:16 ABG O2 Saturation 97.8 05/29/20 02:16 ABG Base Excess 18.5 mmol/L (-2.0-2.0) H 05/29/20 02:16 Krzysztof Test N/a 05/29/20 02:16 A-a O2 Gradient 1.6 mmHg (5-10) L 05/29/20 02:16 Hematocrit 44.7 % (42-52) 05/29/20 02:16 Hgb O2 Saturation 95.9 % (95-100) 05/29/20 02:16 Carboxyhemoglobin 1.3 %THgb (0.4-20.1) 05/29/20 02:16 Methemoglobin 0.6 % (0.4-1.5) 05/29/20 02:16 Total Hemoglobin 14.6 g/dL (14-18) 05/29/20 02:16 Sodium 151.0 mmol/L (131-143) H 05/29/20 02:16 Potassium 2.5 mmol/L (3.5-5.0) L 05/29/20 02:16 Glucose 125.0 mg/dL (70-115) H 05/29/20 02:16 Ionized Calcium 1.1 mmol/L (1.1-1.4) 05/29/20 02:16 O2 Delivery Device Nc 05/29/20 02:16 O2 Liters/Min 3.0 % 05/29/20 02:16 Loop Machine Operator ID [id number] 05/29/20 02:16 Sodium 148 mmol/L (136-145) H 05/29/20 06:16 Potassium 2.5 mmol/L (3.5-5.1) L* D 05/29/20 06:16 Chloride 97 mmol/L (98-107) L 05/29/20 06:16 Carbon Dioxide 37 mmol/L (22-29) H 05/29/20 06:16 Anion Gap 16.5 (5-19) 05/29/20 06:16 BUN 87 mg/dL (8-23) H* 05/29/20 06:16 Creatinine 1.6 mg/dL (0.7-1.2) H 05/29/20 06:16 GFR Calculation Not Reportable 05/29/20 06:16 Glucose 123 mg/dL (65-115) H 05/29/20 06:16 Calculated Osmolality 334 mOsm/kg (285-295) H 05/29/20 06:16 Lactate 2.2 mmol/L (0.5-2.2) 05/28/20 18:38 Calcium 9.1 mg/dL (8.5-10.5) 05/29/20 06:16 Phosphorus 3.7 mg/dL (2.5-4.5) 05/29/20 09:06 Magnesium 3.4 mg/dL (1.7-2.3) H 05/29/20 01:49 Total Bilirubin 1.0 mg/dL (0.15-1.2) 05/28/20 18:38 AST 16 U/L (0-40) 05/28/20 18:38 ALT 12 U/L (0-41) 05/28/20 18:38 Alkaline Phosphatase 100 IU/L (40-130) 05/28/20 18:38 Creatine Kinase 408 U/L (39-308) H* 05/28/20 18:38 Troponin T Baseline 120 ng/L (0-15) H* 05/28/20 18:38 Troponin T 120 Minute 113.4 ng/L (0-15) H 05/28/20 20:29 Delta Troponin T -6.6 ABS# (0-10) L 05/28/20 20:29 NT-Pro-B Natriuret Pep 2241 pg/mL (0-450) H 05/28/20 18:38 Total Protein 8.1 g/dL (6.6-8.7) 05/28/20 18:38 Albumin 4.6 g/dL (3.5-5.2) 05/28/20 18:38 Globulin 3.5 g/dL (1.3-4.6) 05/28/20 18:38 Urine Color Yellow (Yellow) 05/28/20 20:00 Urine Appearance Clear (CLEAR) 05/28/20 20:00 Urine pH 5 (5-7) 05/28/20 20:00 Ur Specific [place] 1.010 (1.005-1.030) 05/28/20 20:00 Urine Protein Neg (Negative) 05/28/20 20:00 Urine Glucose (UA) Norm (Normal) 05/28/20 20:00 Urine Ketones Negative (Negative) 05/28/20 20:00 Urine Blood Neg (Negative) 05/28/20 20:00 Urine Nitrate Negative (Negative) 05/28/20 20:00 Urine Bilirubin Neg (Negative) 05/28/20 20:00 Urine Urobilinogen Norm mg/dL (Negative) 05/28/20 20:00 Ur Leukocyte Esterase Negative (Negative) 05/28/20 20:00 SARS-CoV-2 Ag (Rapid) Negative (Negative) 05/28/20 20:30 A&P Assessment and plan (1) Metabolic encephalopathy: From dehydration, acute kidney injury, electrolyte derangements possibility of acute ischemia in the setting of comorbid conditions Status: Acute (2) Hypokalemia: Profound enough to have potentially precipitated some arrhythmias Status: Acute (3) STEVEN (acute kidney injury): Prerenal related to decreased oral intake and volume losses from diarrhea and I suspect also continue diuresis. Although Has elevated CK levels suggestive of some rhabdomyolysis. Has significant azotemia. Cannot rule out other etiology presently Status: Acute (4) Dehydration: Severe Status: Acute (5) Elevated troponin: Unclear clinical significance. Available EKG shows A. fib/flutter at a rate of 77. No acute ST segment changes appreciated. With acute kidney injury challenging to interpret. It is also trending downwards so it is possible this is a subacute event. Status: Acute (6) Elevated brain natriuretic peptide (BNP) level: Has some baseline elevation. Last ejection fraction with EF around 55%. With current renal dysfunction, difficult to interpret. Clinically looks very dry and on imaging studies thus far do not reveal pulmonary edema. 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 Status: Chronic (8) Diastolic congestive heart failure: Status: Chronic Qualifiers: Heart failure chronicity: chronic Qualified Code(s): I50.32 - Chronic diastolic (congestive) heart failure (9) Atrial fibrillation: Status: Chronic Qualifiers: Atrial fibrillation type: unspecified Qualified Code(s): I48.91 - Unspecified atrial fibrillation (10) ASHD (arteriosclerotic heart disease): Has required prior angioplasty and stent placement Status: Chronic (11) Diabetes: Status: Chronic (12) SOCIAL WORK ASSISTANT (ventriculoperitoneal) shunt status: Since 2005 Status: Chronic (13) 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 Status: Chronic Additional A&P Information Change to inpatient admission IV fluids with potassium Additional IV potassium Monitor urine output closely We will continue [place] catheter for this reason Repeat electrolytes later today CODE STATUS was changed to reflect allow natural , removing comfort care indicator Rectal aspirin, IV beta-blockade and renally dosed treatment dose Lovenox Chronically on statin therapy but presently not able to take by mouth Not a candidate for any type of invasive evaluation given comorbid conditions and current clinical condition Chronically on Lasix and metolazone from the facility but these are both held currently Monitor pulmonary status but presently needs fluids Oral Eliquis is currently held in deference to subcutaneous Lovenox Rate is presently controlled Add Accu-Cheks and insulin if needed I have continued his home Risperdal in the event that he is able to take by mouth Flomax currently held simply because of inability to take by mouth Provide oral care and make comfort medications available in the event they become needed Supportive care otherwise Very poor prognosis for recovery from this acute clinical situation but we will see how he does with a bit more fluids Goal of care is to go back to [facility] care Allow natural Plans were discussed with patient's daughter and she was given an opportunity to ask questions Attestations Medical Necessity Statement*: Requires ongoing inpatient stay for continued electrolyte replacement, IV fluids and close monitoring as noted above. Coding Level of Care Code Acute Funeral Pre Arrangement Specialist for Samig Fwrandy Diagnoses Metabolic encephalopathy G93.41 Hypokalemia E87.6 STEVEN (acute kidney injury) N17.9 Dehydration E86.0 Elevated troponin R79.89 Elevated brain natriuretic peptide (BNP) level R79.89 Chronic anticoagulation Z79.01 Diastolic congestive heart failure I50.32 Heart failure chronicity: chronic Atrial fibrillation I48.91 Atrial fibrillation type: unspecified ASHD (arteriosclerotic heart disease) I25.10 Diabetes E11.9 SOCIAL WORK ASSISTANT (ventriculoperitoneal) shunt status Z98.2 Lewy body dementia with behavioral disturbance G31.83; F02.81
[2020-05-29 09:51] LABS: Phosphorus 3.7 mg/dL (2.5-4.5)
[2020-05-29] MEDS: metoprolol tartrate 1 mg/1 mL SDV 5 mL 5 MG IV ×3 (10:34→21:28)
[2020-05-29] MEDS: enoxaparin 80 mg/0.8 mL Syringe SUBCUT (10:39)
[2020-05-29] MEDS: nitroglycerin 1 gm/inch oint Pkt 0.5 INCH TOPICAL ×3 (10:40→21:34)
[2020-05-29] MEDS: aspirin 300 mg Supp PR (10:40)
[2020-05-29] MEDS: sodium chlor 0.9% + KCl 20 mEq 20 MEQ/1,000 ML BAG 100 MEQ IV ×2 (10:41→21:01)
[2020-05-29 15:40] LABS: Anion Gap 15.6 (5-19); Carbon Dioxide 38 mmol/L (22-29); Chloride 100 mmol/L (98-107); Glucose 118 mg/dL (65-115); Osmolality Calculated 340 mOsm/kg (285-295); Sodium 151 mmol/L (136-145)
[2020-05-29 15:45] LABS: Blood Urea Nitrogen 87 mg/dL (8-23); Potassium 2.6 mmol/L (3.5-5.1)
[2020-05-29 16:41] LABS: Glucose Point of Care 132 mg/dL (70-110)
[2020-05-29] MEDS: potassium chloride premix 100 ML 25 MEQ IV ×2 (17:20→21:27)
[2020-05-29 17:21] LABS: ABG PH Result 7.59 (7.35-7.45)
[2020-05-29 19:41] LABS: Glucose Point of Care 123 mg/dL (70-110)
[2020-05-30] VITALS (8 sets, daily range): BP systolic 100–139; BP diastolic 63–77; PULSE 68–93; RESP 15–28; TEMP 36.6–37.9; O2SAT 92–96
[2020-05-30] MEDS: sulfacetamide 10% Op Soln 15 mL Btl 2 DROP EYE-BOTH ×6 (00:32→19:57)
[2020-05-30] MEDS: metoprolol tartrate 1 mg/1 mL SDV 5 mL 5 MG IV ×4 (03:59→21:58)
[2020-05-30] MEDS: nitroglycerin 1 gm/inch oint Pkt 0.5 INCH TOPICAL ×3 (03:59→21:58)
[2020-05-30] MEDS: sodium chlor 0.9% + KCl 20 mEq 20 MEQ/1,000 ML BAG 100 MEQ IV ×2 (06:07→17:00)
[2020-05-30 06:26] LABS: Anion Gap 14.2 (5-19); Blood Urea Nitrogen 78 mg/dL (8-23); Calcium 8.8 mg/dL (8.5-10.5); Carbon Dioxide 35 mmol/L (22-29); Chloride 109 mmol/L (98-107); Glucose 120 mg/dL (65-115); Magnesium 3.2 mg/dL (1.7-2.3); Osmolality Calculated 345 mOsm/kg (285-295); Phosphorus 3.1 mg/dL (2.5-4.5); Potassium 3.2 mmol/L (3.5-5.1); Sodium 155 mmol/L (136-145)
[2020-05-30 06:37] LABS: Glucose Point of Care 122 mg/dL (70-110)
[2020-05-30 07:04] LABS: Creatine Phosphokinase 257 U/L (39-308)
[2020-05-30] MEDS: LORazepam 2 mg/mL INJ 1 mL 0.5 MG IVP (09:23)
[2020-05-30] MEDS: enoxaparin 80 mg/0.8 mL Syringe SUBCUT (10:55)
[2020-05-30] MEDS: aspirin 300 mg Supp PR (11:02)
[2020-05-30 11:03] LABS: Glucose Point of Care 191 mg/dL (70-110)
[2020-05-30 11:48] LABS: Glucose Point of Care 143 mg/dL (70-110)
[2020-05-30 11:48] LABS: Glucose Point of Care 148 mg/dL (70-110)
--- NOTE | 2020-05-30 15:57 | PC.NURSE ---
THIS NURSE DISCUSSED PATIENT CARE WITH FAMILY MEMBERS. FAMILY VOICED THEIR CONCERN ABOUT PATIENT GOING BACK TO WILL CARE. DR. ALBERT NOTIFIED. FAMILY WOULD LIKE TO CONTINUE MEDICAL CARE AT THIS TIME AND DISCUSS DIFFERENT SNF PLACEMENT WELL THE POSSIBILITY OF HOSPICE CARE.
[2020-05-30 16:53] LABS: Glucose Point of Care 130 mg/dL (70-110)
[2020-05-30 19:49] LABS: Glucose Point of Care 127 mg/dL (70-110)
--- NOTE | 2020-05-30 21:48 | P.PN_ITS ---
Subjective Subjective: Interval history: Patient remains unresponsive except a bit of a opening of his eyes. Not as ill-appearing today. No issues overnight per nursing staff. I had a long talk with patient's daughter and his . He went to [facility] around [facility] last year. He is in a locked unit there. His dementia had gotten to the point that he was a danger to himself due to wandering. He was able to walk at that time. With Covid the family has not been able to see him m [facility]. The last time they physically saw him was around [place]. His calls him frequently. She talked to him the day or 2 prior to admission and said that his speech was slurred a bit but he otherwise seemed okay. When the family came to visit yesterday they were quite shocked by his appearance and had no idea that he had declined so much. They do not wish for him to go back to [facility] as they feel like they have not been adequately informed of condition changes. They also talk about him not having access to care that they request. They understand that as he has chronic significant medical problems and do not want him to be intubated or undergo CPR however they are okay with other treatments. They do not know why his chart indicated comfort care at the facility. They know that the improvement has been minimal with management thus far but they would like to see if he can get through this. They are agreeable to transfer to another facility if arrangements can be made. He is not currently in comfort care only. Vitals/I&O/Wt Last Vital Signs Temp 98.1 F 05/30/20 19:20 Pulse 68 05/30/20 19:20 Resp 16 05/30/20 19:20 BP 126/77 05/30/20 19:20 Pulse Ox 92 05/30/20 19:20 05/30/20 05/30/20 05/30/20 06:59 14:59 22:59 Intake Total 1010 / 2110 0 / 0 1000 / 1000 Output Total 500 / 1575 Balance 510 / 535 0 / 0 1000 / 1000 Physical Exam Narrative: EXAM NARRATIVE: Flutter his eyes with touch today, not so much to voice. Not quite as acutely ill-appearing. Mucous membranes improved with oral care. Lungs are clear. He has an irregular rhythm. Abdomen is soft. Decreased bowel sounds. Extremities with doughy texture, some distal pitting edema. No abnormal movements. Salinas catheter is in place. Skin is less dry. Urinary Catheter Management^: Salinas: Cath Placed During This Visit: yes Reason for Continuing Indwelling Catheter: Hospice/Comfort/Palliative Care Urinary Catheter Date of Insertion: 05/28/20 Urinary Catheter Time of Insertion: 20:10 Data : 05/29/20 06:16 05/30/20 05:48 A&P Assessment and plan (1) Metabolic encephalopathy: From dehydration, acute kidney injury, electrolyte derangements possibility of acute ischemia in the setting of comorbid conditions. Had been reported that he had had some diarrhea and developed hypokalemia but exactly wha t transpired does not consistent between family and facility. Status: Acute (2) Hypokalemia: Profound enough to have potentially precipitated some arrhythmias, improving Status: Acute (3) STEVEN (acute kidney injury): Prerenal related to decreased oral intake and volume losses from diarrhea and I suspect also continue diuresis. Although Has elevated CK levels suggestive of some rhabdomyolysis. Has significant azotemia. Cannot rule out other etiology presently. Some improvement. Status: Acute (4) Dehydration: Severe Status: Acute (5) Elevated troponin: Unclear clinical significance. Available EKG shows A. fib/flutter at a rate of 77. No acute ST segment changes appreciated. With acute kidney injury challenging to interpret. It is also trending downwards so it is possible this is a subacute event. Status: Acute (6) Elevated brain natriuretic peptide (BNP) level: Has some baseline elevation. Last ejection fraction with EF around 55%. With current renal dysfunction, difficult to interpret. Still looks clinically very dry. 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 Status: Chronic Additional A&P Information Change fluids to half-normal saline with potassium Repeat laboratory studies in the morning Check ABG in the morning as well On treatment dose Lovenox, renally adjusted, total aspirin and IV beta-jacquelin for coverage of possible NSTEMI Statin not ordered as not able to take by mouth and CK was elevated Not a candidate for invasive evaluation or treatment for vascular issues secondary to comorbid conditions and current clinical status Have provided IV equivalents of those medications for which one is available Dulcolax suppository Continue Salinas catheter for monitoring of urine output, urine is not as dark as it was yesterday Off of home Lasix and metolazone Off of Eliquis while on Lovenox Off of home Flomax Home Risperdal as ordered in the event that he wakes up and is able to take me dications by mouth He is not currently comfort care but I have ordered current care medications to facilitate ensuring that he is comfortable while we gently hydrate him to see if he will get through this acute event He is to be allowed natural , no intubation or mechanical ventilation or CPR or acute ACLS management Family aware of the poor prognosis Family wishes to change to an alternative facility possibly with hospice care if he does not show signs of more substantial improvement in the next day or so. They cannot take him home due to lack of running water and complete electricity and other household comforts Both the patient's daughter, who works for [employer] ambulance service as well as his were given an opportunity to ask questions Attestations Medical Necessity Statement*: Requires ongoing inpatient care for IV fluid management, monitoring for indication of them provement or response to this treatment and determination of future plans of care. Family does not wish to go back to facility from which he came. Coding Level of Care Code Acute [employer] [facility] for Irma Fwrandy Diagnoses Metabolic encephalopathy G93.41 Hypokalemia E87.6 STEVEN (acute kidney injury) N17.9 Dehydration E86.0 Elevated troponin R79.89 Elevated brain natriuretic peptide (BNP) level R79.89 Chronic anticoagulation Z79.01 Diastolic congestive heart failure I50.32 Heart failure chronicity: chronic Atrial fibrillation I48.91 Atrial fibrillation type: unspecified ASHD (arteriosclerotic heart disease) I25.10 Diabetes E11.9 MANAGER WORKERS COMPENSATION (ventriculoperitoneal) shunt status Z98.2 Lewy body dementia with behavioral disturbance G31.83; F02.81
[2020-05-31] VITALS (9 sets, daily range): BP systolic 117–138; BP diastolic 64–77; PULSE 77–92; RESP 15–22; TEMP 36.5–37.7; O2SAT 92–94
[2020-05-31] MEDS: sodium chlor 0.45% +KCl 20 mEq 20 MEQ/1,000 ML BAG 75 MEQ IV ×2 (02:40→14:17)
[2020-05-31] MEDS: metoprolol tartrate 1 mg/1 mL SDV 5 mL 5 MG IV ×4 (04:04→21:40)
[2020-05-31] MEDS: nitroglycerin 1 gm/inch oint Pkt 0.5 INCH TOPICAL ×4 (04:04→21:39)
[2020-05-31] MEDS: sulfacetamide 10% Op Soln 15 mL Btl 2 DROP EYE-BOTH ×6 (04:05→20:03)
[2020-05-31 06:51] LABS: Glucose Point of Care 114 mg/dL (70-110)
[2020-05-31] MEDS: bisacodyl 10 mg Supp PR (10:33)
[2020-05-31] MEDS: enoxaparin 80 mg/0.8 mL Syringe SUBCUT ×2 (10:33→21:40)
[2020-05-31] MEDS: aspirin 300 mg Supp PR (10:33)
[2020-05-31 11:21] LABS: Glucose Point of Care 95 mg/dL (70-110)
--- NOTE | 2020-05-31 14:37 | P.PN_ITS ---
Subjective Subjective: Interval history: This morning patient does not respond to commands, does not respond to sternal rub, pupils equal round reactive to light, somewhat withdraws from pain, remains normotensive, respiratory rate 20, temp 97.9, 93% on room air, and still waiting on patient's morning lab Vitals/I&O/Wt Last Vital Signs Temp 97.9 F 05/31/20 12:26 Pulse 90 05/31/20 12:26 Resp 20 H 05/31/20 12:26 BP 122/65 05/31/20 12:26 Pulse Ox 93 05/31/20 12:26 05/30/20 05/31/20 05/31/20 22:59 06:59 14:59 Intake Total 1000 / 1000 1870. / 1870. Output Total 1800 / 1800 Balance 1000 / 1000 -1800 / -800 / Physical Exam Const: GENERAL APPEARANCE: lethargic, ill appearing and frail appearing ORIENTATION/CONSCIOUSNESS: Yes lethargic; not awake, not oriented to person, not oriented to place and not oriented to time Resp: COMMON NORMALS: normal respiratory effort, No retractions and No use of accessory muscles AUSCULTATION: wheezes Cardio: COMMON NORMALS: regular rate, regular rhythm, S1 normal heart sound present, S2 normal heart sound present and No murmurs present (Cardio) RATE: regular rate RHYTHM: regular rhythm HEART SOUNDS: S1 normal heart sound present and S2 normal heart sound present GI: COMMON NORMALS: Normal to inspection, nondistended, normoactive bowel sounds present, Soft to palpation and non-tender PALPATION: Yes Soft to p alpation Extremity: COMMON NORMALS: no pedal edema Neuro: SENSORIUM/ORIENTATION: No oriented to person, No oriented to place, No oriented to time and Yes lethargic Urinary Catheter Management^: [place]: Cath Placed During This Visit: yes Reason for Continuing Indwelling Catheter: Accurate Measurement of Urinary Out put in Critically Ill Patients Urinary Catheter Date of Insertion: 05/28/20 Urinary Catheter Time of Insertion: 20:10 Data : 05/29/20 06:16 05/30/20 05:48 A&P Assessment and plan (1) Metabolic encephalopathy: From dehydration, acute kidney injury, electrolyte derangements possibility of acute ischemia in the setting of comorbid conditions. Had been reported that he had had some diarrhea and developed hypokalemia but exactly what transpired does not consistent between family and facility. Status: Acute (2) Hypokalemia: Profound enough to have potentially precipitated some arrhythmias, improving Status: Acute (3) STEVEN (acute kidney injury): Prerenal related to decreased oral intake and volume losses from diarrhea and I suspect also continue diuresis. Although Has elevated CK levels suggestive of some rhabdomyolysis. Has significant azotemia. Cannot rule out other etiology presently. Some improvement. Status: Acute (4) Dehydration: Severe Status: Acute (5) Elevated troponin: Unclear clinical significance. Available EKG shows A. fib/flutter at a rate of 77. No acute ST segment changes appreciated. With acute kidney injury challenging to interpret. It is also trending downwards so it is possible this is a subacute event. Status: Acute (6) Elevated brain natriuretic peptide (BNP) level: Has some baseline elevation. Last ejection fraction with EF around 55%. With current renal dysfunction, difficult to interpret. Still looks clinically very dry. 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 Status: Chronic Additional A&P Information Currently does not respond to sternal rub, does withdraw from pain's, pupils equal round reactive to light, normotensive, heart rates in the 90s, temp 97.9, respiratory 20, nasal cannula, good urine output We will obtain morning labs, ABG Will order echo, carotid artery ultrasound Consider MRI Continue half-normal saline with 20 KCl at 75 cc an hour, monitor for fluid overload On treatment dose Lovenox, renally adjusted, total aspirin and IV beta-jacquelin for coverage of possible NSTEMI Statin not ordered as not able to take by mouth and CK was elevated Not a candidate for invasive evaluation or treatment for vascular issues secondary to comorbid conditions and current clinical status Have provided IV equivalents of those medications for which one is available Dulcolax suppository Continue Salinas catheter for monitoring of urine output, urine is not as dark as it was yesterday Off of home Lasix and metolazone Off of Eliquis while on Lovenox, has IVC filter in place Off of home Flomax Home Risperdal as ordered in the event that he wakes up and is able to take medications by mouth Currently not on official comfort care, but I have ordered current care medications to facilitate ensuring that he is comfortable while we gently hydrate him to see if he will get through this acute event He is to be allowed natural , no intubation or mechanical ventilation or CPR or acute ACLS management Family states that they do not want aggressive interventions Family aware of the poor prognosis Family wishes to change to an alternative facility possibly with hospice care if he does not show signs of more substantial improvement in the next day or so. They cannot take him home due to lack of running water and complete electricity and other household comforts Both the patient's daughter, who works for [employer] ambulance service as well as his were given an opportunity to ask questions Attestations Medical Necessity Statement*: Patient requires hospitalization for metabolic encephalopathy Coding Level of Care Code Acute [facility] Home[facility] for Irma Delgado Diagnoses Metabolic encephalopathy G93.41 Hypokalemia E87.6 STEVEN (acute kidney injury) N17.9 Dehydration E86.0 Elevated troponin R79.89 Elevated brain natriuretic peptide (BNP) level R79.89 Chronic anticoagulation Z79.01 Diastolic congestive heart failure I50.32 Heart failure chronicity: chronic Atrial fibrillation I48.91 Atrial fibrillation type: unspecified ASHD (arteriosclerotic heart disease) I25.10 Diabetes E11.9 SPACE PHYSICIST (ventriculoperitoneal) shunt status Z98.2 Lewy body dementia with behavioral disturbance G31.83; F02.81
--- NOTE | 2020-05-31 14:52 | USCV_ITS ---
Willie Ram Age: 79 Gender: M : 1940 Exam Date: 05/31/2020 16:23 Ordering Phys: Louie Loaiza MD Technologist: CASE [place] [facility] [place]: [place] BP: 120 / 64 HR: 100 Rhythm: Sinus Technical Quality: Poor MEASUREMENTS (Male / Female) Normal Values 2D ECHO LV Diastolic Diameter PLAX 3.8 cm 4.2 - 5.9 / 3.9 - 5.3 cm LV Systolic Diameter PLAX 2.1 cm LV Chamber Size 3.6 cm IVS Diastolic Thickness 1.2 cm 0.6 - 1.0 / 0.6 - 0.9 cm IVS Systolic Thickness 1.4 cm LVPW Diastolic Thickness 2.0 cm 0.6 - 1.0 / 0.6 - 0.9 cm LVPW Systolic Thickness 2.3 cm RV Chamber Size 2.6 cm LVOT Diameter 2.0 cm LV Ejection Fraction 2D Teich 75.6 % LV Ejection Fraction MOD 2C 28.2 % LV Ejection Fraction 2C AL 22.4 % LA Width 4.5 cm LA Height 5.7 cm RA Width 3.8 cm RA Height 5.4 cm DOPPLER AV Peak Velocity 136.0 cm/s LVOT Peak Velocity 89.0 cm/s AV Area Cont Eq vti 1.9 cm squared AV Area Cont Eq pk 2.1 cm squared MV Area PHT 3.6 cm squared Mitral E to A Ratio 1.7 MV E' Velocity 49.5 cm/s Mitral E to MV E' Ratio 5.8 Mitral E to LV E' Lateral Ratio 5.7 Mitral E to LV E' Septal Ratio 5.9 TR Peak Velocity 121.0 cm/s TR Peak Gradient 5.9 mmHg TV Peak E Velocity 51.0 cm/s Right Atrial Pressure 3.0 mmHg Pulmonary Artery Systolic Pressu 8.9 mmHg FINDINGS Left Ventricle Normal left ventricular cavity size. Normal left ventricular cavity size. Left ventricular ejection fraction is estimated at 55 %. Due to suboptimal images cannot rule out wall motion abnormality. Possible septal and anterior wall hypokinesis. Grade II/IV diastolic dysfunction, moderately elevated filling pressures. Right Ventricle The right ventricle is normal in size and function. Right Atrium The right atrium is normal in size. Left Atrium The left atrium is normal in size. Mitral Valve Structurally normal mitral valve without significant stenosis or prolapse. There is no mitral regurgitation. Aortic Valve Severe aortic valve calcification. Mild aortic valve stenosis, mean gradient 3.5 mmHg, CATHY 1.9 cm squared. No aortic valve regurgitation. Tricuspid Valve Structurally normal tricuspid valve without significant stenosis or regurgitation. Pulmonary artery systolic pressure is normal. Pulmonic Valve Pulmonic valve not well visualized. Pericardium Normal pericardium without effusion. Aorta Normal ascending aorta dimension. CONCLUSIONS 1-Normal left ventricular cavity size. Normal left ventricular cavity size. Left ventricular ejection fraction is estimated at 55 %. Due to suboptimal images cannot rule out wall motion abnormality. Possible septal and anterior wall hypokinesis. Grade II/IV diastolic dysfunction, moderately elevated filling pressures. 2-Severe aortic valve calcification. Mild aortic valve stenosis, mean gradient 3.5 mmHg, CATHY 1.9 cm squared. No aortic valve regurgitation. 3-There is no pericardial effusion. 4-Pulmonary artery systolic pressure is within normal limits. 5-Right atrial pressure is around 5 mm of mercury. 6-No significant change since the prior echocardiogram study of 10/18/2019. Alexandria Lowery MD (Electronically Signed) Final Date: 31 May 2020 21:59 S
--- NOTE | 2020-05-31 14:52 | USCV_ITS ---
Willie Ram Age: 79 Gender: M : 1940 Exam Date: 05/31/2020 16:32 Ordering Phys: Louie Loaiza MD Technologist: CASE [place]am [place] [facility] [place]: AMS Risk Factors: Previous Vascular Surgery: Right Brachial BP: / Left Brachial BP: / Right Left Velocity (cm/s) Spectral Plaque Velocity (cm/s) Spectral Plaque Syst/Diast Broadening Syst/Diast Broadening 80.70/ 15.70 Prox CCA 56.00 / 14.00 66.70/ 15.70 Mid CCA 45.30 / 8.20 61.80/ 16.50 Distal CCA 51.10 / 9.90 57.70/ 9.10 Prox ICA 45.30 / 8.20 37.10/ 9.10 Mid ICA 59.30 / 17.30 36.30/ 11.50 Distal ICA 75.80 / 21.40 75.00 ECA 61.00 0.86 ICA/CCA 1.67 Not Vertebral Not Visualized Visualized / cm/s / cm/s Tri Subclavian Tri 51.10 44.50 CONCLUSIONS Right ICA stenosis <50%. Mild atheromatous plaque right carotid bulb/ICA. Left ICA stenosis <50%. Mild atheromatous plaque left carotid bulb/ICA. Neither vertebral artery is visualized Walker Stone MD (Electronically Signed) Final Date: 01 June 2020 16:07 S
[2020-05-31 15:31] LABS: ABG PCO2 43.5 mmHg (35-45); ABG PH Result 7.51 (7.35-7.45); Arterial Blood Gas Hematocrit 41.9 % (42-52); Base Excess ABG 10.7 mmol/L (-2.0-2.0); Blood Gas Allen Test Pos; Blood Gas Operator Identificat MONRO; Blood Gas Sample Site Radial, right; Blood Gas Sample Type Arterial; HCO3 ABG 34.9 mmol/L (22-26); Oxygen Device NC
[2020-05-31 16:56] LABS: Glucose Point of Care 96 mg/dL (70-110)
[2020-05-31 20:23] LABS: Glucose Point of Care 107 mg/dL (70-110)
[2020-06-01] VITALS (8 sets, daily range): BP systolic 107–136; BP diastolic 68–91; PULSE 78–108; RESP 15–30; TEMP 36.6–38.2; O2SAT 93–96
[2020-06-01] MEDS: sulfacetamide 10% Op Soln 15 mL Btl 2 DROP EYE-BOTH ×5 (00:25→15:52)
[2020-06-01] MEDS: nitroglycerin 1 gm/inch oint Pkt 0.5 INCH TOPICAL ×4 (04:04→22:00)
[2020-06-01] MEDS: metoprolol tartrate 1 mg/1 mL SDV 5 mL 5 MG IV ×4 (04:04→22:36)
[2020-06-01] MEDS: sodium chlor 0.45% +KCl 20 mEq 20 MEQ/1,000 ML BAG 75 MEQ IV (04:12)
[2020-06-01 06:39] LABS: Glucose Point of Care 112 mg/dL (70-110)
[2020-06-01 06:51] LABS: Basophils # 0.1 10^3/uL (0.0-0.1); Basophils % 0.4 %; Eosinophils # 0.2 10^3/uL (0.0-0.8); Eosinophils % 1.5 %; Hematocrit 51.4 % (42.0-52.0); Hemoglobin 13.7 g/dL (11.7-16.6); Lymphocytes # 1.3 10^3/uL (0.8-4.8); Lymphocytes % 9.8 %; Mean Corpuscular HGB Conc 26.7 g/dL (30.0-36.0); Mean Corpuscular Hemoglobin 21.6 pg (28.0-34.0); Mean Corpuscular Volume 81.1 fL (80-94); Mean Platelet Volume 10.9 fL (7.4-10.4); Monocytes # 1.2 10^3/uL (0.2-0.9); Monocytes % 8.8 %; Neutrophils # 10.74 10^3/uL (1.8-7.7); Neutrophils % 79.2 %; Nucleated Red Blood Cells % 0 %; Platelet Count 214 10^3/cmm (130-400); Red Blood Count 6.34 10^6/uL (4.1-5.3); Red Cell Distribution Width 22.5 % (12.1-15.1); White Blood Count 13.6 10^3/uL (4.0-10.0)
[2020-06-01 06:55] LABS: INR 1.56 (0.8-1.2)
[2020-06-01 07:01] LABS: Ammonia 55 umol/L (16-60)
[2020-06-01 07:08] LABS: Alanine Aminotransferase 12 U/L (0-41); Albumin Level 3.7 g/dL (3.5-5.2); Alkaline Phosphatase 71 IU/L (40-130); Anion Gap 14.5 (5-19); Aspartate Amino Transferase 33 U/L (0-40); Blood Urea Nitrogen 62 mg/dL (8-23); Calcium 8.8 mg/dL (8.5-10.5); Carbon Dioxide 33 mmol/L (22-29); Chloride 122 mmol/L (98-107); Globulin 3.4 g/dL (1.3-4.6); Glucose 105 mg/dL (65-115); Magnesium 3.1 mg/dL (1.7-2.3); Osmolality Calculated 360 mOsm/kg (285-295); Phosphorus 4.1 mg/dL (2.5-4.5); Potassium 3.5 mmol/L (3.5-5.1); Total Bilirubin 0.8 mg/dL (0.15-1.2); Total Protein 7.1 g/dL (6.6-8.7)
[2020-06-01 07:14] LABS: NT Pro B Type Natriuretic Pept 2018 pg/mL (0-450)
[2020-06-01 07:21] LABS: Sodium 166 mmol/L (136-145)
--- NOTE | 2020-06-01 09:00 | XRR_ITS ---
PROCEDURE INFORMATION: Exam: XR Chest Exam date and time: 06/01/2020 9:04 AM Age: 79 years old Clinical indication: Fever; Patient HX: PT non communicative, unable to obtain history; Additional info: Fevers TECHNIQUE: Imaging protocol: XR of the chest. Views: 1 view. COMPARISON: CR XR chest 1V portable [id number] 05/28/2020 6:47 PM FINDINGS: Tubes, catheters and devices: A ventriculoperitoneal shunt courses down the left side of the chest. Lungs: Unremarkable. No consolidation. Pleural spaces: Unremarkable. No pleural effusion. No pneumothorax. Heart/Mediastinum: The heart is not enlarged. There is calcification of the aortic arch. Bones/joints: Unremarkable. XR/XR chest 1V portable [id number] IMPRESSION: No significant cardiopulmonary abnormality.
[2020-06-01] MEDS: aspirin 300 mg Supp PR (10:19)
[2020-06-01] MEDS: enoxaparin 80 mg/0.8 mL Syringe SUBCUT ×2 (10:19→22:02)
[2020-06-01] MEDS: cefTRIAXone 1,000 MG in sodium chloride 0.9% (plus) 50 ML 100 MG IV (10:20)
[2020-06-01] MEDS: dextrose 5% 1,000 ML 100 ML IV (10:21)
[2020-06-01 11:27] LABS: Glucose Point of Care 122 mg/dL (70-110)
[2020-06-01 12:39] LABS: Anion Gap 14.3 (5-19); Blood Urea Nitrogen 63 mg/dL (8-23); Calcium 8.6 mg/dL (8.5-10.5); Carbon Dioxide 32 mmol/L (22-29); Chloride 121 mmol/L (98-107); Glucose 119 mg/dL (65-115); Osmolality Calculated 357 mOsm/kg (285-295); Potassium 3.3 mmol/L (3.5-5.1)
[2020-06-01 12:42] LABS: Sodium 164 mmol/L (136-145)
--- NOTE | 2020-06-01 12:55 | PC.SOCIAL ---
Pg 2 IMM Explained to daughter via telephone Pg 2 IMM. No questions voiced. Provided a copy in patient room. Signed, dated, & timed a copy & placed in chart.
[2020-06-01] MEDS: lidocaine 1% 5 ML in potassium chloride premix 100 ML 25 ML IV (14:00)
--- NOTE | 2020-06-01 14:44 | P.PN_ITS ---
Subjective Subjective: Interval history: Patient was examined this morning and in the afternoon with patient's family at bedside Patient does not awaken, does not respond to sternal rub, did spontaneously open his eyes at 1 point, does withdraw from pain, pupils equal round reactive to light, his serum sodium is 166, I started him on D5 water, he also had fevers overnight likely an aspiration event, started him on antibiotics, patient has diffuse shaking during examination, concern for possible seizure like activity related to his hyponatremia, I started him on Keppra I advised patient family at bedside, that patient's prognosis is poor, he has worsening hypernatremia, likely aspiration event, with seizure-like activity, Patient's family advised me that he has dementia, at baseline he is forgetful, but is able to ambula however he has significantly declined since he went to the retirement Patient's family wants him need to continue interventions for now, and if he does not improve by tomorrow, to make him full comfort care, he remains DNR/DNI, family wants to avoid aggressive interventions Vitals/I&O/Wt Last Vital Signs Temp 97.9 F 06/01/20 11:32 Pulse 96 06/01/20 11:32 Resp 20 H 06/01/20 11:32 BP 136/75 06/01/20 11:32 Pulse Ox 94 06/01/20 11:32 05/31/20 06/01/20 06/01/20 22:59 06:59 14:59 Intake Total 1000 / 2871.25 0 / 0 Output Total 700 / 700 Balance 300 / 2171.25 0 / 0 Physical Exam Const: GENERAL APPEARANCE: ill appearing ORIENTATION/CONSCIOUSNESS: Yes patient obtunded; not awake, not oriented to person, not oriented to place and not oriented to time Resp: COMMON NORMALS: No retractions, No use of accessory muscles and clear to auscultation bilaterally AUSCULTATION: clear to auscultation bilaterally and crackles Cardio: COMMON NORMALS: regular rate, regular rhythm, S1 normal heart sound present and S2 normal heart sound present RATE: regular rate RHYTHM: regu lar rhythm HEART SOUNDS: S1 normal heart sound present and S2 normal heart sound present GI: COMMON NORMALS: Normal to inspection, nondistended, normoactive bowel sounds present and Soft to palpation PALPATION: Yes Soft to palpation Neuro: SENSORIUM/ORIENTATION: No oriented to person, No oriented to place and No oriented to time Urinary Catheter Management^: [place]: Cath Placed During This Visit: yes Reason for Continuing Indwelling Catheter: Accurate Measurement of Urinary Output in Critically Ill Patients Urinary Catheter Date of Insertion: 05/28/20 Urinary Catheter Time of Insertion: 20:10 Data : 06/01/20 06:18 06/01/20 12:14 Micro: Microbiology 06/01/20 09:30 Blood Culture - Preliminary Blood SPECIMEN COLLECTED 06/01/20 09:24 Blood Culture - Preliminary Blood SPECIMEN COLLECTED A&P Assessment and plan (1) Metabolic encephalopathy: From dehydration, acute kidney injury, electrolyte derangements possibility of acute ischemia in the setting of comorbid conditions. Had been reported that he had had some diarrhea and developed hypokalemia but exactly what transpired does not consistent between family and facility. Status: Acute (2) Hypokalemia: Profound enough to have potentially precipitated some arrhythmias, improving Status: Acute (3) STEVEN (acute kidney injury): Prerenal related to decreased oral intake and volume losses from diarrhea and I suspect also continue diuresis. Although Has elevated CK levels suggestive of some rhabdomyolysis. Has significant azotemia. Cannot rule out other etiology presently. Some improvement. Status: Acute (4) Dehydration: Severe Status: Acute (5) Elevated troponin: Unclear clinical significance. Available EKG shows A. fib/flutter at a rate of 77. No acute ST segment changes appreciated. With acute kidney injury challenging to interpret. It is also trending downwards so it is possible this is a subacute event. Status: Acute (6) Elevated brain natriuretic peptide (BNP) level: Has some baseline elevation. Last ejection fraction with EF around 55%. With current renal dysfunction, difficult to interpret. Still looks clinically very dry. 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 Status: Chronic (14) Hypernatremia: Status: Acute Additional A&P Information Severe hyponatremia, serum 166 Switch to D5 water at 125 cc an hour, serum sodiums every 4 hours, neurochecks, seizure precaution, aspiration precautions Potassium placement Will start Keppra for possible seizures, seizure prophylaxis Zosyn for aspiration pneumonia, monitor for fevers On treatment dose Lovenox, renally adjusted, total aspirin and IV beta-jacquelin for coverage of possible NSTEMI Statin not ordered as not able to take by mouth and CK was elevated Not a candidate for invasive evaluation or treatment for vascular issues secondary to comorbid conditions and current clinical status Have provided IV equivalents of those medications for which one is available Dulcolax suppository Continue [place] catheter for monitoring of urine output, urine is not as dark as it was yesterday Off of home Lasix and metolazone Off of Eliquis while on Lovenox, has IVC filter in place Off of home Flomax Home Risperdal as ordered in the event that he wakes up and is able to take medications by mouth Currently not on official comfort care, but I have ordered current care medica tions to facilitate ensuring that he is comfortable while we gently hydrate him to see if he will get through this acute event He is to be allowed natural , no intubation or mechanical ventilation or CPR or acute ACLS management Family states that they do not want aggressive interventions Family aware of the poor prognosis DNR/DNI If patient does not improve tomorrow will be comfort care Family wishes to change to an alternative facility with hospice care if he does not show signs of more substantial improvement in the next day or so. They cannot take him home due to lack of running water and complete electricity and other household comforts Both the patient's daughter, who works for [employer] service as well as his were given an opportunity to ask questions Attestations Medical Necessity Statement*: Requires hospitalization for hypokalemia, hyponatremia, metabolic encephalopathy, seizures, dehydration Coding Level of Care Code Acute Wig Dresser for [facility] Fwd Diagnoses Metabolic encephalopathy G93.41 Hypokalemia E87.6 STEVEN (acute kidney injury) N17.9 Dehydration E86.0 Elevated troponin R79.89 Elevated brain natriuretic peptide (BNP) level R79.89 Chronic anticoagulation Z79.01 Diastolic congestive heart failure I50.32 Heart failure chronicity: chronic Atrial fibrillation I48.91 Atrial fibrillation type: unspecified ASHD (arteriosclerotic heart disease) I25.10 Diabetes E11.9 INTELLECTUAL PROPERTY MANAGER (ventriculoperitoneal) shunt status Z98.2 Lewy body dementia with behavioral disturbance G31.83; F02.81 Hypernatremia E87.0
[2020-06-01] MEDS: piperacillin-tazobactam 3.375 GM in sodium chloride 0.9% (plus) 50 ML IV (15:51)
[2020-06-01 16:33] LABS: Anion Gap 15.6 (5-19); Blood Urea Nitrogen 60 mg/dL (8-23); Calcium 8.6 mg/dL (8.5-10.5); Carbon Dioxide 32 mmol/L (22-29); Chloride 124 mmol/L (98-107); Glucose 108 mg/dL (65-115); Osmolality Calculated 363 mOsm/kg (285-295); Potassium 3.6 mmol/L (3.5-5.1)
[2020-06-01 16:34] LABS: Sodium 168 mmol/L (136-145)
[2020-06-01 16:53] LABS: Add Urine Microscopic? YES; Bilirubin Urine Neg (Negative); Blood Urine 3+ (Negative); Glucose Urine UA Norm (Normal); Ketones Urine Negative (Negative); Leukocyte Esterase Urine Negative (Negative); Nitrate Urine Negative (Negative); Protein Urine Neg (Negative); Specific Gravity, Urine 1.015 (1.005-1.030); Urine Appearance Clear (CLEAR); Urine Color Yellow (Yellow); Urobilinogen Urine Norm (Negative); pH Urine 5 (5-7)
[2020-06-01 16:58] LABS: Add Urine Culture? Yes; Bacteria Urine TRACE /hpf; RBC Urine 25-40 /hpf (0-2); Squamous Epithelial Cell Urine 0-4 /hpf (0-5)
[2020-06-01 20:37] LABS: Anion Gap 13.8 (5-19); Blood Urea Nitrogen 60 mg/dL (8-23); Calcium 8.6 mg/dL (8.5-10.5); Carbon Dioxide 33 mmol/L (22-29); Chloride 126 mmol/L (98-107); Glucose 110 mg/dL (65-115); Osmolality Calculated 366 mOsm/kg (285-295); Potassium 3.8 mmol/L (3.5-5.1)
[2020-06-01 20:43] LABS: Sodium 169 mmol/L (136-145)
[2020-06-01] MEDS: dextrose 5% 1,000 ML 150 ML IV (22:00)
[2020-06-01 22:19] LABS: Glucose Point of Care 111 mg/dL (70-110)
[2020-06-02] VITALS (7 sets, daily range): BP systolic 102–137; BP diastolic 62–76; PULSE 95–101; RESP 17–40; TEMP 37.3–38.8; O2SAT 90–93
[2020-06-02] MEDS: piperacillin-tazobactam 3.375 GM in sodium chloride 0.9% (plus) 50 ML IV ×2 (00:32→06:42)
[2020-06-02 01:20] LABS: Anion Gap 12.7 (5-19); Blood Urea Nitrogen 65 mg/dL (8-23); Calcium 8.6 mg/dL (8.5-10.5); Carbon Dioxide 32 mmol/L (22-29); Chloride 125 mmol/L (98-107); Glucose 144 mg/dL (65-115); Osmolality Calculated 363 mOsm/kg (285-295); Potassium 3.7 mmol/L (3.5-5.1)
[2020-06-02 01:22] LABS: Sodium 166 mmol/L (136-145)
[2020-06-02] MEDS: sulfacetamide 10% Op Soln 15 mL Btl 2 DROP EYE-BOTH ×3 (02:03→10:45)
[2020-06-02] MEDS: dextrose 5% 1,000 ML 150 ML IV ×2 (02:58→10:37)
[2020-06-02] MEDS: metoprolol tartrate 1 mg/1 mL SDV 5 mL 5 MG IV ×2 (04:23→10:20)
[2020-06-02] MEDS: nitroglycerin 1 gm/inch oint Pkt 0.5 INCH TOPICAL ×2 (04:43→10:20)
[2020-06-02 06:13] LABS: Basophils # 0.1 10^3/uL (0.0-0.1); Basophils % 0.4 %; Eosinophils # 0.1 10^3/uL (0.0-0.8); Eosinophils % 0.8 %; Hematocrit 53.2 % (42.0-52.0); Hemoglobin 13.5 g/dL (11.7-16.6); Lymphocytes # 1.5 10^3/uL (0.8-4.8); Lymphocytes % 9.1 %; Mean Corpuscular HGB Conc 25.4 g/dL (30.0-36.0); Mean Corpuscular Hemoglobin 21.7 pg (28.0-34.0); Mean Corpuscular Volume 85.4 fL (80-94); Mean Platelet Volume 11.7 fL (7.4-10.4); Monocytes # 1.4 10^3/uL (0.2-0.9); Monocytes % 8.5 %; Neutrophils # 13.11 10^3/uL (1.8-7.7); Neutrophils % 80.7 %; Nucleated Red Blood Cells % 0 %; Platelet Count 198 10^3/cmm (130-400); Red Blood Count 6.23 10^6/uL (4.1-5.3); Red Cell Distribution Width 23.1 % (12.1-15.1); White Blood Count 16.2 10^3/uL (4.0-10.0)
[2020-06-02 06:23] LABS: INR 1.68 (0.8-1.2)
[2020-06-02 06:36] LABS: Lactate (Lactic Acid level) 3.6 mmol/L (0.5-2.2)
[2020-06-02 06:40] LABS: Glucose Point of Care 156 mg/dL (70-110)
[2020-06-02 06:56] LABS: Alkaline Phosphatase 66 IU/L (40-130); Carbon Dioxide 26 mmol/L (22-29); Globulin 3.5 g/dL (1.3-4.6); Phosphorus 4.1 mg/dL (2.5-4.5); Total Bilirubin 0.8 mg/dL (0.15-1.2); Total Protein 6.7 g/dL (6.6-8.7)
[2020-06-02 07:11] LABS: Alanine Aminotransferase 10 U/L (0-41); Chloride 123 mmol/L (98-107)
[2020-06-02 07:14] LABS: Anion Gap 21.5 (5-19); Aspartate Amino Transferase 29 U/L (0-40); Potassium 4.5 mmol/L (3.5-5.1); Sodium 166 mmol/L (136-145)
[2020-06-02 07:15] LABS: Blood Urea Nitrogen 63 mg/dL (8-23); Glucose 149 mg/dL (65-115); Osmolality Calculated 363 mOsm/kg (285-295)
[2020-06-02 07:25] LABS: Albumin Level 3.2 g/dL (3.5-5.2); Calcium 8.3 mg/dL (8.5-10.5); Magnesium 3.2 mg/dL (1.7-2.3); NT Pro B Type Natriuretic Pept 2319 pg/mL (0-450)
[2020-06-02] MEDS: aspirin 300 mg Supp PR (10:20)
[2020-06-02] MEDS: acetaminophen 650 mg Supp PR (10:20)
[2020-06-02] MEDS: enoxaparin 80 mg/0.8 mL Syringe SUBCUT (10:37)
[2020-06-02 11:34] LABS: Glucose Point of Care 155 mg/dL (70-110)
[2020-06-02 12:38] LABS: Anion Gap 12.8 (5-19); Blood Urea Nitrogen 57 mg/dL (8-23); Calcium 8.1 mg/dL (8.5-10.5); Carbon Dioxide 31 mmol/L (22-29); Chloride 122 mmol/L (98-107); Glucose 162 mg/dL (65-115); Osmolality Calculated 353 mOsm/kg (285-295); Potassium 3.8 mmol/L (3.5-5.1)
[2020-06-02 12:52] LABS: Sodium 162 mmol/L (136-145)
--- NOTE | 2020-06-02 13:28 | P.PN_ITS ---
Subjective Subjective: Interval history: This morning patient is nonresponsive, does not respond to sternal rub, breathing is quite labored, lungs sound wet, his serum sodiums remain in the high 160s, despite D5 water, does withdraw to from pain to some degree Patient's family was seen this afternoon at bedside, patient's daughter, patient's , patient's son, advised patient's family that he continues to have hyponatremia, now has evidence of fluid overload, lungs sound wet, has mild retractions, labored breathing besides at dialysis and aggressive management I have exhausted all avenues Patient's family wants him to be comfortable, they do not want him to suffer, they want to proceed with comfort care Advised the risks and benefits of comfort care they voiced understanding, all q uestions answered, agreed to proceed to comfort care as inpatient, if he is here for longer than 2 days, will proceed to outpatient hospice Vitals/I&O/Wt Last Vital Signs Temp 101.9 F H 06/02/20 12:00 Pulse 95 06/02/20 12:00 Resp 40 H 06/02/20 12:00 BP 106/62 06/02/20 12:00 Pulse Ox 93 06/02/20 12:00 06/01/20 06/02/20 06/02/20 22:59 06:59 14:59 Intake Total 2315.00 / 2315.00 855 / 3170.00 1155 / 1155 Output Total 1800 / 1800 900 / 2700 Balance 515.00 / 515.00 -45 / 470.00 1155 / 1155 Physical Exam Const: GENERAL APPEARANCE: lethargic ORIENTATION/CONSCIOUSNESS: Yes patient obtunded and Yes lethargic; not awake, not oriented to person, not oriented to place and not oriented to time Resp: EFFORT & INSPECTION: Yes tachypneic and Yes labored AUSCULTATION: crackles Cardio: COMMON NORMALS: regular rate, regular rhythm, S1 normal heart sound present and S2 normal heart sound present RATE: regular rate RHYTHM: regular rhythm HEART SOUNDS: S1 normal heart sound present and S2 normal heart sound present GI: COMMON NORMALS: Normal to inspection, nondistended, normoactive bowel sounds present and Soft to palpation PALPATION: Yes Soft to palpation Neuro: SENSORIUM/ORIENTATION: No oriented to person, No oriented to place, No oriented to time and Yes lethargic Urinary Catheter Management^: [place]: Cath Placed During This Visit: yes Reason for Continuing Indwelling Catheter: Perioperative Use in Selected Surgeries Urinary Catheter Date of Insertion: 05/28/20 Urinary Catheter Time of Insertion: 20:10 Data : 06/02/20 05:15 06/02/20 12:00 Micro: Microbiology 06/01/20 09:30 Blood Culture - Preliminary Blood NEGATIVE TO DATE 06/01/20 09:24 Blood Culture - Preliminary Blood NEGATIVE TO DATE A&P Assessment and plan (1) Metabolic encephalopathy: From dehydration, acute kidney injury, electrolyte derangements possibility of acute ischemia in the setting of comorbid conditions. Had been reported that he had had some diarrhea and developed hypokalemia but exactly what transpired does not consistent between family and facility. Status: Acute (2) Hypokalemia: Profound enough to have potentially precipitated some arrhythmias, improving Status: Acute (3) STEVEN (acute kidney injury): Prerenal related to decreased oral intake and volume losses from diarrhea and I suspect also continue diuresis. Although Has elevated CK levels suggestive of some rhabdomyolysis. Has significant azotemia. Cannot rule out other etiology presently. Some improvement. Status: Acute (4) Dehydration: Severe Status: Acute (5) Elevated troponin: Unclear clinical significance. Available EKG shows A. fib/flutter at a rate of 77. No acute ST segment changes appreciated. With acute kidney injury challenging to interpret. It is also trending downwards so it is possible this is a subacute event. Status: Acute (6) Elevated brain natriuretic peptide (BNP) level: Has some baseline elevation. Last ejection fraction with EF around 55%. With current renal dysfunction, difficult to interpret. Still looks clinically very dry. 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 Status: Chronic (14) Hypernatremia: Status: Acute Additional A&P Information Proceeding to comfort care Start comfort care orders DNR/DNI Severe hyponatremia, serum 166 Switch to D5 water at 125 cc an hour, serum sodiums every 4 hours, neurochecks, seizure precaution, aspiration precautions Potassium placement Will start Keppra for possible seizures, seizure prophylaxis Zosyn for aspiration pneumonia, monitor for fevers On treatment dose Lovenox, renally adjusted, total aspirin and IV beta-jacquelin for coverage of possible NSTEMI Statin not ordered as not able to take by mouth and CK was elevated Not a candidate for invasive evaluation or treatment for vascular issues secondary to comorbid conditions and current clinical status Have provided IV equivalents of those medications for which one is available Dulcolax suppository Continue [place] catheter for monitoring of urine output, urine is not as dark as it was yesterday Off of home Lasix and metolazone Off of Eliquis while on Lovenox, has IVC filter in place Off of home Flomax Home Risperdal as ordered in the event that he wakes up and is able to take medications by mouth Currently not on official comfort care, but I have ordered current care medications to facilitate ensuring that he is comfortable while we gently hydrate him to see if he will get through this acute event He is to be allowed natural , no intubation or mechanical ventilation or CPR or acute ACLS management Family states that they do not want aggressive interventions Family aware of the poor prognosis DNR/DNI If patient does not improve tomorrow will be comfort care Family wishes to change to an alternative facility with hospice care if he does not show signs of more substantial improvement in the next day or so. They cannot take him home due to lack of running water and complete electricity and other household comforts Both the patient's daughter, who works for [employer] service as well as his were given an opportunity to ask questions Attestations Medical Necessity Statement*: Patient requires hospitalization for comfort care Coding Level of Care Code Acute Major Gifts Director for [facility] Diagnoses Metabolic encephalopathy G93.41 Hypokalemia E87.6 STEVEN (acute kidney injury) N17.9 Dehydration E86.0 Elevated troponin R79.89 Elevated brain natriuretic peptide (BNP) level R79.89 Chronic anticoagulation Z79.01 Diastolic congestive heart failure I50.32 Heart failure chronicity: chronic Atrial fibrillation I48.91 Atrial fibrillation type: unspecified ASHD (arteriosclerotic heart disease) I25.10 Diabetes E11.9 WAGE AND HOUR INVESTIGATOR (ventriculoperitoneal) shunt status Z98.2 Lewy body dementia with behavioral disturbance G31.83; F02.81 Hypernatremia E87.0
--- NOTE | 2020-06-02 17:12 | PC.RESP ---
Pulmonary Rehab information sent to patient.
[2020-06-03] VITALS: BP 110/75; PULSE 101; RESP 40; TEMP 37.9; O2SAT 91
[2020-06-03 03:53] VITALS: BP 117/72; PULSE 112; RESP 36; TEMP 37.6; O2SAT 92
--- NOTE | 2020-06-03 08:00 | PC.NURSE ---
Pt lying in bed resting with eyes closed. Resp even and non-labored no distress noted. IV patent no redness or swelling noted. Pt responsive to painful stimuli only. O2 at 3lpm. No s/s of pain or discomfort at the present time. Will cont to monitor.
--- NOTE | 2020-06-03 09:28 | PC.SOCIAL ---
IMM Updated Updated pt's daughter via phone on Pg 2 IMM. No questions voiced. Provided a copy & left on pt's bedside table. Signed, dated, & timed copy in chart.
[2020-06-03 11:07] VITALS: BP 102/65; PULSE 108; RESP 18; TEMP 37.2; O2SAT 90
--- NOTE | 2020-06-03 13:00 | P.PN_ITS ---
Subjective Subjective: Interval history: Patient is breathing is labored this morning, he does not respond to stimuli Vitals/I&O/Wt Last Vital Signs Temp 99.0 F 06/03/20 11:07 Pulse 108 H 06/03/20 11:07 Resp 18 06/03/20 11:07 BP 102/65 06/03/20 11:07 Pulse Ox 90 06/03/20 11:07 06/02/20 06/03/20 06/03/20 22:59 06:59 14:59 Output Total 1025 / 1025 720 / 720 Balance -1025 / 630 -720 / -720 Physical Exam Const: ORIENTATION/CONSCIOUSNESS: not awake, not oriented to person, not oriented to place and not oriented to time Resp: EFFORT & INSPECTION: Yes tachypneic and Yes labored AUSCULTATION: wheezes Cardio: COMMON NORMALS: regular rate, regular rhythm, S1 normal heart sound present and S2 normal heart sound present RATE: regular rate RHYTHM: regular rhythm HEART SOUNDS: S1 normal heart sound present and S2 normal heart sound present GI: COMMON NORMALS: Normal to inspection, nondistended, normoactive bowel sounds present and Soft to palpation PALPATION: Yes Soft to palpation Extremity: COMMON NORMALS: no pedal edema Neuro: SENSORIUM/ORIENTATION: No oriented to person, No oriented to place and No oriented to time Urinary Catheter Management^: [place]: Cath Placed During This Visit: yes Reason for Continuing Indwelling Catheter: Hospice/Comfort/Palliative Care Urinary Catheter Date of Insertion: 05/28/20 Urinary Catheter Time of Insertion: 20:10 Data : 06/02/20 05:15 06/02/20 12:00 Micro: Microbiology 06/01/20 16:00 Urine Culture - Final Urine Catheterized 06/01/20 09:30 Blood Culture - Preliminary Blood NEGATIVE TO DATE 06/01/20 09:24 Blood Culture - Preliminary Blood NEGATIVE TO DATE A&P Assessment and plan (1) Metabolic encephalopathy: Currently on comfort care From dehydration, acute kidney injury, electrolyte derangements possibility of acute ischemia in the setting of comorbid conditions. Had been reported that he had had some diarrhea and developed hypokalemia but exactly what transpired does not consistent between family and facility. Status: Acute (2) Hypokalemia: Profound enough to have potentially precipitated some arrhythmias, improving Status: Acute (3) STEVEN (acute kidney injury): Prerenal related to decreased oral intake and volume losses from diarrhea and I suspect also continue diuresis. Although Has elevated CK levels suggestive of some rhabdomyolysis. Has significant azotemia. Cannot rule out other etiology presently. Some improvement. Status: Acute (4) Dehydration: Severe Status: Acute (5) Elevated troponin: Unclear clinical significance. Available EKG shows A. fib/flutter at a ra te of 77. No acute ST segment changes appreciated. With acute kidney injury challenging to interpret. It is also trending downwards so it is possible this is a subacute event. Status: Acute (6) Elevated brain natriuretic peptide (BNP) level: Has some baseline elevation. Last ejection fraction with EF around 55%. With current renal dysfunction, difficult to interpret. Still looks clinically very dry. 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 Status: Chronic (14) Hypernatremia: Status: Acute Additional A&P Information Currently on comfort care DNR/DNI Tomorrow we will transfer her to skilled nursing on hospice Severe hyponatremia, serum 166 Switch to D5 water at 125 cc an hour, serum sodiums every 4 hours, neurochecks, seizure precaution, aspiration precautions Potassium placement Will start Keppra for possible seizures, seizure prophylaxis Zosyn for aspiration pneumonia, monitor for fevers On treatment dose Lovenox, renally adjusted, total aspirin and IV beta-jacquelin for coverage of possible NSTEMI Statin not ordered as not able to take by mouth and CK was elevated Not a candidate for invasive evaluation or treatment for vascular issues secondary to comorbid conditions and current clinical status Have provided IV equivalents of those medications for which one is available Dulcolax suppository Continue [place] catheter for monitoring of urine output, urine is not as dark as it was yesterday Off of home Lasix and metolazone Off of Eliquis while on Lovenox, has IVC filter in place Off of home Flomax Home Risperdal as ordered in the event that he wakes up and is able to take medications by mouth Currently not on official comfort care, but I have ordered current care medications to facilitate ensuring that he is comfortable while we gently hydrate him to see if he will get through this acute event He is to be allowed natural , no intubation or mechanical ventilation or CPR or acute ACLS management Family states that they do not want aggressive interventions Family aware of the poor prognosis DNR/DNI If patient does not improve tomorrow will be comfort care Family wishes to change to an alternative facility with hospice care if he does not show signs of more substantial improvement in the next day or so. They cannot take him home due to lack of running water and complete electricity and other household comforts Both the patient's daughter, who works for [employer] service as well as his were given an opportunity to ask questions Attestations Medical Necessity Statement*: Patient requires hospitalization for inpatient comfort care Coding Level of Care Code Acute Obgyn Nurse for g Fwd Diagnoses Metabolic encephalopathy G93.41 Hypokalemia E87.6 STEVEN (acute kidney injury) N17.9 Dehydration E86.0 Elevated troponin R79.89 Elevated brain natriuretic peptide (BNP) level R79.89 Chronic anticoagulation Z79.01 Diastolic congestive heart failure I50.32 Heart failure chronicity: chronic Atrial fibrillation I48.91 Atrial fibrillation type: unspecified ASHD (arteriosclerotic heart disease) I25.10 Diabetes E11.9 WOOL HAT FINISHER (ventriculoperitoneal) shunt status Z98.2 Lewy body dementia with behavioral disturbance G31.83; F02.81 Hypernatremia E87.0
[2020-06-03 19:23] VITALS: RESP 42
[2020-06-03 19:28] VITALS: RESP 42
[2020-06-03] MEDS: morphine 4 mg/mL SDV 1 mL IVP (19:28)
[2020-06-03 20:25] VITALS: BP 113/70; PULSE 120; RESP 40; TEMP 38.1; O2SAT 90
[2020-06-04] VITALS (8 sets, daily range): BP systolic 112–126; BP diastolic 77–91; PULSE 91–119; RESP 21–42; TEMP 36.4–39.1; O2SAT 87–91
[2020-06-04] MEDS: morphine 4 mg/mL SDV 1 mL IVP (04:05)
--- NOTE | 2020-06-04 07:00 | PC.NURSE ---
Pt on comfort care. Oral care performed, turned every 2 hours. Morphine given twice during shift.
--- NOTE | 2020-06-04 10:30 | P.DS_ITS ---
Discharge Providers Date of Admission: 05/28/20 23:53 Date of Discharge: June 04, 2020 Attending Provider at Admission: Alexandria Dunn MD Attending Provider at Discharge: Louie Loaiza MD Primary Care Provider: DENZEL Cazares Diagnoses at Discharge Discharge Diagnosis (1) Metabolic encephalopathy: Status: Acute (2) Hypokalemia: Status: Acute (3) STEVEN (acute kidney injury): Status: Acute (4) Dehydration: Status: Acute (5) Elevated troponin: Status: Acute (6) Elevated brain natriuretic peptide (BNP) level: Status: Acute (7) Chronic anticoagulation: Status: Chronic Permanent problem details: eliquis, on for afib and history of dvt/PE (8) Diastolic congestive heart failure: Status: Chronic Permanent problem details: LVEF 55% on echo 10/2019 Qualifiers: Heart failure chronicity: chronic Qualified Code(s): I50.32 - Chronic diastolic (congestive) heart failure (9) Atrial fibrillation: Status: Chronic Qualifiers: Atrial fibrillation type: unspecified Qualified Code(s): I48.91 - Unspecified atrial fibrillation (10) ASHD (arteriosclerotic heart disease): Status: Chronic (11) Diabetes: Status: Chronic (12) WINDOWS APPLICATION PACKAGER (ventriculoperitoneal) shunt status: Status: Chronic Permanent problem details: 05/04/2005 Dr. Aicha Roche WINDOWS APPLICATION PACKAGER shunt revision (13) Lewy body dementia with behavioral disturbance: Status: Chronic (14) Hypernatremia: Status: Acute Reason for Visit Reason for Visit: LOW POTASSIUM Hospital Course Hospital Course This is a 79-year-old male with a past medical history of dementia, esophageal cancer status post radiation, radiation esophagitis, A. fib, history of GI bleeds, half-way resident who presents to [facility] due to lethargy Patient was admitted to [facility] for metabolic encephalopathy, secondary to dehydration, STEVEN, hypokalemia, hypernatremia, NSTEMI. According to half-way patient was on comfort care, however family was not aware of this, and they were shocked on his appearance, and on how much he had declined as they had not seen him since December due to Covid. He was made DNR/DNI by family. Family wanted to continue medical nonaggressive interventions, and if he did not improve, we would pursue comfort care/hospice. Patient was initially managed with fluid therapy, to correct his electrolyte derangements, however he did not clinically improve, remained nonresponsive; after exhausting various modalities employed to correct his electrolyte derangements including hypernatremia, without any significant improvement in his clinical status, and his mental status, he remained fairly nonresponsive, family pursued comfort care/hospice. Dialysis was offered as an option, however patient's family declined. after discussion of the risk and benefits family voiced understanding, all questions answered, agreed to proceed to comfort care and hospice. Patient remained as inpatient for 2 days for comfort care, as we thought he might in h ospitalized care. Patient on 06/04/2020 continued to decline, remained on responsive, had labored breathing, but had not . Patient was transferred to half-way on hospice. Physical Exam Const: GENERAL APPEARANCE: lethargic, ill appearing and frail appearing ORIENTATION/CONSCIOUSNESS: Yes patient obtunded and Yes lethargic; not awake, not oriented to person, not oriented to place and not oriented to time Resp: EFFORT & INSPECTION: Yes tachypneic and Yes labored Cardio: COMMON NORMALS: regular rate, regular rhythm, S1 normal heart sound present and S2 normal heart sound present RATE: regular rate and tachycardic RHYTHM: regular rhythm HEART SOUNDS: S1 normal heart sound present and S2 normal heart sound present GI: COMMON NORMALS: Normal to inspection, nondistended, normoactive bowel sounds present and Soft to palpation PALPATION: Yes Soft to palpation Extremity: COMMON NORMALS: no pedal edema Neuro: SENSORIUM/ORIENTATION: No oriented to person, No oriented to place, No oriented to time and Yes lethargic Urinary Catheter Management^: [place]: Cath Placed During This Visit: yes Reason for Continuing Indwelling Catheter: Hospice/Comfort/Palliative Care Urinary Catheter Date of Insertion: 05/28/20 Urinary Catheter Time of Insertion: 20:10 Discharge Data Data Completed and Pending: Completed Studies During Hospitalization Category Date Time Status CT angio chest w abd pel w con Stat Cat Scan 05/28/20 20:[address] head wo con* 7 0450 Urgent Cat Scan 05/28/20 18:27 Completed XR chest 1V corinne ble [id number] Routine Exams 06/01/20 09:00 Completed XR chest 1V corinne ble [id number] Urgent Exams 05/28/20 18:27 Completed CV carotid duplex BI* [id number] Routine Ultrasound 05/31/20 14:52 Completed CV echo complete* [id number] Routine Ultrasound 05/31/20 14:52 Completed Pending at discharge Category Date Time Status Blood Culture Sta t Lab 06/01/20 09:30 Results Vitals: Last Vital Signs Temp 97.6 F 06/04/20 08:00 Pulse 119 H 06/04/20 08:00 Resp 21 H 06/04/20 08:00 BP 118/85 06/04/20 08:00 Pulse Ox 88 L 06/04/20 08:00 Discharge Plan Discharge Patient Disposition: Hospice - Medical Facility Condition: Serious Prescriptions: Discontinued tamsulosin [Flomax] 0.4 mg capsule 0.4 mg PO DAILY@0700 RF: 0 risperidone 0.5 mg tablet 0.5 mg PO TID@0800,1400,2000 RF: 0 esomeprazole magnesium 40 mg capsule,delayed release(DR/EC) 40 mg PO DAILY@0800 RF: 0 metolazone 2.5 mg tablet 2.5 mg PO DAILY@0730 RF: 0 atorvastatin 40 mg tablet 40 mg PO DAILY@1700 RF: 0 sennosides [senna] 8.6 mg Tablet 8.6 mg PO BID PRN (Reason: Constipation) RF: 0 acetaminophen 325 mg Tablet 650 mg PO Q4H PRN (Reason: PAIN/FEVER) RF: 0 albuterol sulfate 2.5 mg /3 mL (0.083 %) solution for nebulization 2.5 mg inhalation Q4H PRN (Reason: COPD) RF: 0 isosorbide mononitrate 30 mg tablet extended release 24 hr 30 mg PO DAILY@0800 RF: 0 bisacodyl 10 mg/30 mL Enema 10 mg AK DAILY PRN (Reason: Constipation) RF: 0 alprazolam 0.25 mg tablet 0.25 mg PO BID PRN (Reason: Anxiety) RF: 0 magnesium hydroxide [Milk of Magnesia] 400 mg/5 mL Suspension 400 mg PO DAILY PRN (Reason: Constipation) RF: 0 Enema Disposable 19-7 gram/118 mL Enema 118 ml AK DAILY PRN (Reason: Constipation) RF: 0 nitroglycerin [Nitrostat] 0.4 mg Tablet, Sublingual 0.4 mg SUBLINGUAL Q5M PRN (Reason: Chest Pain) RF: 0 metoprolol tartrate 25 mg Tablet 25 mg PO BID@799,1999 RF: 0 furosemide 40 mg tablet 40 mg PO BID@ RF: 0 Eliquis 5 mg tablet 5 mg PO BID@ RF: 0 polyethylene glycol 3350 [Miralax] 17 gram Powder In Packet 17 g PO DAILY PRN (Reason: Constipation) RF: 0 potassium chloride 20 mEq tablet,ER particles/crystals 40 meq PO BID@ RF: 0 sulfacetamide sodium [Bleph-10] 10 % Drops 2 drp OPHTHALMIC (EYE) Q4H RF: 0 Cough Drops 5.8 mg Lozenge 1 mg PO Q6H PRN (Reason: Cough) RF: 0 Discharge Orders: Discharge Order (Routine); Ordered 06/04/20 Ordered By: Louie Loaiza Referrals: Ashley Medrano FNP [Primary Care Provider] - Discharge Diet: Regular Discharge Activity: Resume usual activity Patient Instructions: Opioid Safety Discharge Attestations Time Spent in Discharge Care*: greater than 30 min Status at Discharge: Behavioral status at discharge: cooperative , Quality Metrics Clinical Quality Measures During this hospital stay, did patient experience: None Coding Level of Care Code Acute Chg FW DC note Exam Detailed Diagnoses Metabolic encephalopathy G93.41 Hypokalemia E87.6 STEVEN (acute kidney injury) N17.9 Dehydration E86.0 Elevated troponin R79.89 Elevated brain natriuretic peptide (BNP) level R79.89 Chronic anticoagulation Z79.01 Diastolic congestive heart failure I50.32 Heart failure chronicity: chronic Atrial fibrillation I48.91 Atrial fibrillation type: unspecified ASHD (arteriosclerotic heart disease) I25.10 Diabetes E11.9 WINDOWS APPLICATION PACKAGER (ventriculoperitoneal) shunt status Z98.2 Lewy body dementia with behavioral disturbance G31.83; F02.81 Hypernatremia E87.0
== END 2020-06-04 17:20 | disposition hospice, inpatient (51) | DRG 682 ==
LOC: ER 23:02 → MEDSURG 05-29 07:42
PROVIDERS: Hospitalist; Internal Medicine; Admitting Provider Internal Medicine; Emergency Provider Family Medicine; PCP Nurse Practitioner Family; Visit Provider Family Medicine
DX: N17.9 Acute kidney failure, unspecified (principal); I21.4 Non-ST elevation (NSTEMI) myocardial infarction; J69.0 Pneumonitis due to inhalation of food and vomit; I50.32 Chronic diastolic (congestive) heart failure; F02.81 Dementia in other diseases classified elsewhere, unspecified severity, with behavioral disturbance; F03.91 Unspecified dementia, unspecified severity, with behavioral disturbance; E87.0 Hyperosmolality and hypernatremia; E87.3 Alkalosis; E87.6 Hypokalemia; E86.0 Dehydration; E87.70 Fluid overload, unspecified; Z51.5 Encounter for palliative care; I48.91 Unspecified atrial fibrillation; I25.10 Atherosclerotic heart disease of native coronary artery without angina pectoris; I11.0 Hypertensive heart disease with heart failure; R79.89 Other specified abnormal findings of blood chemistry; G31.83 Neurocognitive disorder with Lewy bodies; E11.9 Type 2 diabetes mellitus without complications; R13.10 Dysphagia, unspecified; G47.33 Obstructive sleep apnea (adult) (pediatric); E78.5 Hyperlipidemia, unspecified; N40.0 Benign prostatic hyperplasia without lower urinary tract symptoms; J44.9 Chronic obstructive pulmonary disease, unspecified; Z66 Do not resuscitate; Z79.01 Long term (current) use of anticoagulants; Z82.49 Family history of ischemic heart disease and other diseases of the circulatory system; Z87.891 Personal history of nicotine dependence; Z85.01 Personal history of malignant neoplasm of esophagus; Z98.2 Presence of cerebrospinal fluid drainage device; Z92.3 Personal history of irradiation; Z91.83 Wandering in diseases classified elsewhere; Z86.718 Personal history of other venous thrombosis and embolism; Z86.711 Personal history of pulmonary embolism; Z86.73 Personal history of transient ischemic attack (TIA), and cerebral infarction without residual deficits; Z95.828 Presence of other vascular implants and grafts
CPT/HCPCS: 36415; 36416; 36600; 51701; 51702; 70450; 71045; 71275; 74177; 80048; 80051; 80053; 81001; 81003; 82140; 82330; 82550; 82803; 82805; 82962; 83605; 83735; 83880; 84100; 84484; 85025; 85378; 85610; 86140; 87040; 87086; 87426; 93005; 93306; 93880; 94640; 96365; 96366; 96367; 96372; 99285; G0378; J0696; J1650; J1953; J1956; J2060; J2270; J2543; J3480; J3490; J7040; J7611; Q9967